=== PATIENT | female | born 1930 | race Caucasian/White ===

== ENCOUNTER 2018-12-03 07:28 | Inpatient (IN) | payer MEDICARE, OTHER ==
[2018-12-03] MEDS ORDERED: Sodium Chloride 0.9% 10 ML Syringe FLUSH PRN (08:02)
[2018-12-03] MEDS ORDERED: cefTRIAXone 2 GM in Sodium Chloride 0.9% 100 ML IV ONE (08:04)
[2018-12-03] MEDS ORDERED: Sodium Chloride 0.9% 1,000 ML IV SCH (08:15)
--- NOTE | 2018-12-03 08:23 | EDM.PDOC ---
ED HPI GENERAL MEDICAL PROBLEM - General Chief Complaint: Possible Sepsis Stated Complaint: [facility] Time Seen by Provider: 12/03/18 07:46 Source of Information: Reports: Patient, EMS, Half-Way Records History Limitations: Reports: No Limitations - History of Present Illness INITIAL COMMENTS - FREE TEXT/NARRATIVE: The patient presents from [facility] for a fever of 102. She also has been needed oxygen to keep oxygen saturations about 90%. She denies having a cough. She has just been weak lately. She has no chest pain, shortness of breath, abdominal pain, nausea or vomiting. She has no dysuria. She has no skin sores. She has not been around anyone who is sick. Onset: Gradual Duration: Day(s): Severity: Moderate Improves with: Reports: None Worsens with: Reports: None Associated Symptoms: Reports: Fever/Chills. Denies: Chest Pain, Cough, Headaches, Nausea/Vomiting, Shortness of Breath - Related Data Allergies Allergy/AdvReac Type Severity Reaction Status Date / Time levofloxacin [From Levaquin] Allergy Itching Verified 10/05/18 16:04 Home Meds: Home Meds Aspirin [Halfprin] 81 mg PO DAILY 10/20/15 [History] Clopidogrel [Plavix] 75 mg PO DAILY 10/20/15 [History] Cyanocobalamin (Vitamin B12) [Vitamin B12] 1,000 mcg PO DAILY 10/20/15 [History] Gabapentin [Neurontin] 300 mg PO TID 10/20/15 [History] Insulin Aspart [Novolog Flexpen] 9 unit SQ QPM 10/20/15 [History] Insulin Aspart [Novolog Flexpen] 11 unit SQ DAILY 10/20/15 [History] Insulin Detemir [Levemir Flextouch] 30 unit SQ DAILY 10/20/15 [History] Furosemide [Lasix] 40 mg PO DAILY 03/05/16 [History] Sennosides/Docusate Sodium [Senna-Docusate Sodium] 1 tab PO DAILY PRN 03/05/16 [ History] Acetaminophen 500 mg PO BEDTIME 07/12/16 [History] Acetaminophen [Tylenol Extra Strength] 1,000 mg PO Q6HR PRN 07/12/16 [History] Calcium Carbonate [Tums] 400 mg PO Q4H PRN 07/12/16 [History] Vitamin E 400 unit PO DAILY 07/12/16 [History] Loratadine [Claritin] 10 mg PO DAILY PRN 10/05/18 [History] Saccharomyces Boulardii [Florastor] 250 mg PO BID #9 cap 10/09/18 [Rx] Past Medical History HEENT History: Reports: Impaired Vision Cardiovascular History: Reports: Arrhythmia, Heart Failure, Hypertension Respiratory History: Reports: Other (See Below) Other Respiratory History: hypoxemia Gastrointestinal History: Reports: Chronic Constipation Other Gastrointestinal History: dysphagia Genitourinary History: Reports: Chronic Renal Insuffiency, Retention, Urinary 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[employer] SPECIALIST History: Reports: Musculoskeletal History: Reports: Back Pain, Chronic Other Musculoskeletal History: muscle weakness Neurological History: Reports: TIA, Other (See Below) Other Neuro History: cerebral infarct; neuralgia Psychiatric History: Reports: Depression Endocrine/Metabolic History: Reports: Diabetes, Type II Hematologic History: Reports: Anemia Oncologic (Cancer) History: Reports: Other (See Below) Other Oncologic History: unknown skin cancer Dermatologic History: Reports: Other (See Below) Other Dermatologic History: previous supspected skin cancer - Past Surgical History GI Surgical History: Reports: Cholecystectomy Social & Family History - Family History Family Medical History: Noncontributory - Tobacco Use Smoking Status *Q: Never Smoker - Caffeine Use Caffeine Use: Reports: None - Recreational Drug Use Recreational Drug Use: No ED ROS GENERAL - Review of Systems Review Of Systems: See Below Constitutional: Reports: Fever, Chills, Malaise, Weakness, Fatigue HEENT: Reports: No Symptoms Respiratory: Reports: No Symptoms Cardiovascular: Reports: No Symptoms Endocrine: Reports: No Symptoms GI/Abdominal: Reports: No Symptoms : Reports: No Symptoms Musculoskeletal: Reports: No Symptoms ED EXAM, SEPSIS - Physical Exam Exam: See Below Exam Limited By: No Limitations General Appearance: Alert, No Apparent Distress Ears: Normal External Exam Nose: Normal Inspection Head: Atraumatic, Normocephalic Neck: Normal Inspection Respiratory/Chest: No Respiratory Distress, Decreased Breath Sounds Cardiovascular: Regular Rate, Rhythm, No Edema, No Murmur GI/Abdominal Exam: Soft, Non-Tender, No Organomegaly, No Mass Back: Normal Inspection Extremities: Normal Inspection Neurological: Alert, Oriented, No Motor/Sensory Deficits Course - Vital Signs Last Recorded V/S: Last Vital Signs Temp 98.2 F 12/03/18 07:36 Pulse 105 H 12/03/18 07:36 Resp 22 H 12/03/18 07:36 BP 108/47 L 12/03/18 07:36 Pulse Ox 92 L 12/03/18 08:02 - Orders/Labs/Meds Orders: Active Orders 24 hr Category Date Time Status Cardiac Monitoring [RC] . DIRECTED Care 12/03/18 08:02 Active Oxygen Therapy [RC] PRN Care 12/03/18 08:02 Active Peripheral IV Care [RC] . DIRECTED Care 12/03/18 08:03 Active CRP [C-REACTIVE PROTEIN] [CHEM] Stat Lab 12/03/18 07:52 Received CULTURE BLOOD [BC] Stat Lab 12/03/18 07:52 Received CULTURE BLOOD [BC] Stat Lab 12/03/18 08:00 Received CULTURE STREP A CONFIRMATION [] Stat Lab 12/03/18 09:30 Results MYCOPLASMA PNEUMONIAE IGM AB [CHEM] Stat Lab 12/03/18 07:52 Received STREP SCRN A RAPID W CULT CONF [RM] Stat Lab 12/03/18 09:30 Results Sodium Chloride 0.9% [Normal Saline] 1,000 ml Med 12/03/18 08:15 Active IV .BOLUS Sodium Chloride 0.9% [Saline Flush] Med 12/03/18 08:02 Active 10 ml FLUSH ASDIRECTED PRN Blood Culture x2 Reflex Set [OM.PC] Stat Oth 12/03/18 08:04 Ordered Peripheral IV Insertion Adult [OM.PC] Stat Oth 12/03/18 08:02 Ordered Medication Orders Sodium Chloride (Normal Saline) 1,000 mls @ 1,000 mls/hr IV .BOLUS KANNAN Last Admin: 12/03/18 08:15 Dose: 1,000 mls/hr Sodium Chloride (Saline Flush) 10 ml FLUSH ASDIRECTED PRN PRN Reason: Keep Vein Open Last Admin: 12/03/18 08:15 Dose: 10 ml Labs: Laboratory Tests 12/03/18 12/03/18 12/03/18 Range/Units 07:52 07:52 07:52 WBC 17.99 H (3.98-10.04) K/mm3 RBC 4.33 (3.98-5.22) M/mm3 Hgb 12.6 (11.2-15.7) gm/L Hct 37.9 (34.1-44.9) % MCV 87.5 (79.4-94.8) fl MCH 29.1 (25.6-32.2) pg MCHC 33.2 (32.2-35.5) g/dl RDW Std Deviation 46.2 (36.4-46.3) fL Plt Count 241 (182-369) K/mm3 MPV 10.0 (9.4-12.3) fl Neut % (Auto) 89.4 H (34.0-71.1) % Lymph % (Auto) 5.8 L (19.3-51.7) % Day % (Auto) 4.3 L (4.7-12.5) % Eos % (Auto) 0 L (0.7-5.8) Baso % (Auto) 0.2 (0.1-1.2) % Neut # (Auto) 16.09 H (1.56-6.13) K/mm3 Lymph # (Auto) 1.04 L (1.18-3.74) K/mm3 Day # (Auto) 0.78 H (0.24-0.36) K/mm3 Eos # (Auto) 0.00 L (0.04-0.36) K/mm3 Baso # (Auto) 0.03 (0.01-0.08) K/mm3 Manual Slide Review Abnormal smear Sodium 139 (136-145) mEq/L Potassium 2.7 L (3.5-5.1) mEq/L Chloride 101 (98-107) mEq/L Carbon Dioxide 26 (21-32) mEq/L Anion Gap 14.7 (5-15) BUN 11 (7-18) mg/dL Creatinine 1.2 H (0.55-1.02) mg/dL Est Cr Clr Drug Dosing 23.72 mL/min Estimated GFR (MDRD) 42 (>60) mL/min BUN/Creatinine Ratio 9.2 L (14-18) Glucose 181 H (83-115) mg/dL Lactic Acid 0.9 (0.4-2.0) mmol/L Calcium 8.9 (8.5-10.1) mg/dL Total Bilirubin 0.9 (0.2-1.0) mg/dL AST 13 L (15-37) U/L ALT 15 (14-59) U/L Alkaline Phosphatase 66 (46-116) U/L Total Protein 6.8 (6.4-8.2) g/dl Albumin 2.9 L (3.4-5.0) g/dl Globulin 3.9 gm/dL Albumin/Globulin Ratio 0.7 L (1-2) Urine Color (Yellow) Urine Appearance (Clear) Urine pH (5.0-8.0) Ur Specific [place] (1.005-1.030) Urine Protein (Negative) Urine Glucose (UA) (Negative) Urine Ketones (Negative) Urine Occult Blood (Negative) Urine Nitrite (Negative) Urine Bilirubin (Negative) Urine Urobilinogen (0.2-1.0) Ur Leukocyte Esterase (Negative) Urine RBC (0-5) /hpf Urine WBC (0-5) /hpf Ur Epithelial Cells (0-5) /hpf Urine Bacteria (FEW) /hpf Urine Mucus (FEW) /hpf 12/03/18 Range/Units 08:24 WBC (3.98-10.04) K/mm3 RBC (3.98-5.22) M/mm3 Hgb (11.2-15.7) gm/L Hct (34.1-44.9) % MCV (79.4-94.8) fl MCH (25.6-32.2) pg MCHC (32.2-35.5) g/dl RDW Std Deviation (36.4-46.3) fL Plt Count (182-369) K/mm3 MPV (9.4-12.3) fl Neut % (Auto) (34.0-71.1) % Lymph % (Auto) (19.3-51.7) % Day % (Auto) (4.7-12.5) % Eos % (Auto) (0.7-5.8) Baso % (Auto) (0.1-1.2) % Neut # (Auto) (1.56-6.13) K/mm3 Lymph # (Auto) (1.18-3.74) K/mm3 Day # (Auto) (0.24-0.36) K/mm3 Eos # (Auto) (0.04-0.36) K/mm3 Baso # (Auto) (0.01-0.08) K/mm3 Manual Slide Review Sodium (136-145) mEq/L Potassium (3.5-5.1) mEq/L Chloride (98-107) mEq/L Carbon Dioxide (21-32) mEq/L Anion Gap (5-15) BUN (7-18) mg/dL Creatinine (0.55-1.02) mg/dL Est Cr Clr Drug Dosing mL/min Estimated GFR (MDRD) (>60) mL/min BUN/Creatinine Ratio (14-18) Glucose (83-115) mg/dL Lactic Acid (0.4-2.0) mmol/L Calcium (8.5-10.1) mg/dL Total Bilirubin (0.2-1.0) mg/dL AST (15-37) U/L ALT (14-59) U/L Alkaline Phosphatase (46-116) U/L Total Protein (6.4-8.2) g/dl Albumin (3.4-5.0) g/dl Globulin gm/dL Albumin/Globulin Ratio (1-2) Urine Color Dark yellow (Yellow) Urine Appearance Clear (Clear) Urine pH 6.5 (5.0-8.0) Ur Specific [place] 1.020 (1.005-1.030) Urine Protein 1+ H (Negative) Urine Glucose (UA) Negative (Negative) Urine Ketones 1+ H (Negative) Urine Occult Blood Negative (Negative) Urine Nitrite Negative (Negative) Urine Bilirubin Negative (Negative) Urine Urobilinogen 0.2 (0.2-1.0) Ur Leukocyte Esterase Negative (Negative) Urine RBC Not seen (0-5) /hpf Urine WBC 0-5 (0-5) /hpf Ur Epithelial Cells 0-5 (0-5) /hpf Urine Bacteria Not seen (FEW) /hpf Urine Mucus Not seen (FEW) /hpf Meds: Medications Generic Name Dose Route Start Last Admin Trade Name Freq PRN Reason Stop Dose Admin Sodium Chloride 1,000 mls @ 1,000 mls/hr 12/03/18 08:15 12/03/18 08:15 Normal Saline IV 1,000 mls/hr .BOLUS KANNAN Administration Sodium Chloride 10 ml 12/03/18 08:02 12/03/18 08:15 Saline Flush FLUSH 10 ml ASDIRECTED PRN Administration Keep Vein Open Discontinued Medications Generic Name Dose Route Start Last Admin Trade Name Freq PRN Reason Stop Dose Admin Ceftriaxone Sodium 2 gm/ 100 mls @ 200 mls/hr 12/03/18 08:04 12/03/18 08:37 Sodium Chloride IV 12/03/18 08:33 200 mls/hr ONETIME ONE Administration Oseltamivir Phosphate 75 mg 12/03/18 09:06 12/03/18 09:15 Tamiflu PO 12/03/18 09:07 75 mg ONETIME ONE Administration Potassium Chloride 40 meq 12/03/18 09:17 12/03/18 09:26 Klor-Con M20 PO 12/03/18 09:18 40 meq ONETIME ONE Administration - Re-Assessments/Exams Free Text/Narrative Re-Assessment/Exam: 12/03/18 08:32 I ordered oxygen, IV NS 1L bolus, labs, UA, blood cultures and rocephin 2 grams IV. 12/03/18 10:12 Her WBC was elevated at 17.99. Her K was low at 2.7. I gave her a dose of 40meq by mouth. Her creatinine was slightly elevated at 1.2. Her glucose was 181. Her lactic acid was normal at 0.9. Her UA shows no UTI. Her influenza B was positive. Her CXR shows patchy areas of increased density on both sides of the chest. The patient has bilateral pneumonia and influenza B. I ordered tamiflu 75mg PO. 12/03/18 10:[address] Gutierrez and she agreed to the admission. She wanted a mycoplasma and strep. The strep was negative. Departure - Departure Time of Disposition: 10:15 Disposition: Admitted As Inpatient 67 Condition: Poor Clinical Impression: Hypokalemia, Influenza B, Renal insufficiency Pneumonia Qualifiers: Pneumonia type: due to unspecified organism Laterality: left Lung location: unspecified part of lung Qualified Code(s): J18.9 - Pneumonia, unspecified organism - Discharge Information - My Orders Last 24 Hours: My Active Orders 12/03/18 07:52 CRP [C-REACTIVE PROTEIN] [CHEM] Stat CULTURE BLOOD [BC] Stat MYCOPLASMA PNEUMONIAE IGM AB [CHEM] Stat 12/03/18 08:00 CULTURE BLOOD [BC] Stat 12/03/18 08:02 Cardiac Monitoring [RC] . DIRECTED Oxygen Therapy [RC] PRN Sodium Chloride 0.9% [Saline Flush] 10 ml FLUSH ASDIRECTED PRN Peripheral IV Insertion Adult [OM.PC] Stat 12/03/18 08:03 Peripheral IV Care [RC] . DIRECTED 12/03/18 08:04 Blood Culture x2 Reflex Set [OM.PC] Stat 12/03/18 08:15 Sodium Chloride 0.9% [Normal Saline] 1,000 ml IV .BOLUS 12/03/18 09:30 CULTURE STREP A CONFIRMATION [RM] Stat STREP SCRN A RAPID W CULT CONF [RM] Stat - Assessment/Plan Last 24 Hours: My Active Orders 12/03/18 07:52 CRP [C-REACTIVE PROTEIN] [CHEM] Stat CULTURE BLOOD [BC] Stat MYCOPLASMA PNEUMONIAE IGM AB [CHEM] Stat 12/03/18 08:00 CULTURE BLOOD [BC] Stat 12/03/18 08:02 Cardiac Monitoring [RC] . DIRECTED Oxygen Therapy [RC] PRN Sodium Chloride 0.9% [Saline Flush] 10 ml FLUSH ASDIRECTED PRN Peripheral IV Insertion Adult [OM.PC] Stat 12/03/18 08:03 Peripheral IV Care [RC] . DIRECTED 12/03/18 08:04 Blood Culture x2 Reflex Set [OM.PC] Stat 12/03/18 08:15 Sodium Chloride 0.9% [Normal Saline] 1,000 ml IV .BOLUS 12/03/18 09:30 CULTURE STREP A CONFIRMATION [RM] Stat STREP SCRN A RAPID W CULT CONF [RM] Stat
--- NOTE | 2018-12-03 08:47 | CR ---
Chest: Frontal view of the chest was obtained. Comparison: Prior chest x-ray of 10/09/18. Patchy areas of increased density are identified within both sides of the chest. Heart size is slightly enlarged. Mild tortuosity of the thoracic aorta is seen. Scoliosis noted within the spine with scattered degenerative change. Surgical clips are seen from prior cholecystectomy. Bony structures are osteopenic. Impression: 1. Patchy areas of increased density on both sides of the chest. Please correlate if patient has infectious symptoms for findings to represent multifocal pneumonia. Continued follow-up is recommended to evaluate for improvement. 2. Other incidental findings as noted above. Diagnostic code #3
[2018-12-03] MEDS ORDERED: Oseltamivir 75 MG Cap PO ONE (09:06)
[2018-12-03] MEDS ORDERED: Potassium Chloride 20 MEQ Tab.ER PO ONE (09:17)
[2018-12-03] MEDS ORDERED: Loratadine 10 MG Tab PO PRN (11:44)
[2018-12-03] MEDS ORDERED: Calcium Carbonate 500 MG Tab.Chew PO PRN (11:44)
--- NOTE | 2018-12-03 11:44 | PCM.HP ---
H&P History of Present Illness - General Date of Service: 12/03/18 Admit Problem/Dx: Admission Diagnosis/Problem Admission Diagnosis/Problem Pneumonia Source of Information: Family, Provider History Limitations: Reports: No Limitations - History of Present Illness Initial Comments - Free Text/Narative: 88 year old diabetic resident of [facility] presented febrile with flu like symptoms. She has had the Flu vaccine but unfortunately has tested positive for Influenza B. The patient also has bilateral infiltrates; Documented elevated temperature was 102.0F taken in the ambulance. She will be admitted to [facility] with telemetry. Code status is DNR. Onset of Symptoms: Reports: Unknown/Unsure Symptom Onset Date: 12/03/18 Duration of Symptoms: Reports: Hour(s):, Getting Worse Location: Reports: Chest, Generalized Severity: Moderate Improves with: Reports: Medication Worsens with: Reports: None Associated Symptoms: Reports: Cough, Loss of Appetite, Malaise, Nausea/Vomiting , Shortness of Breath, Weakness - Related Data Allergies/Adverse Reactions: Allergies Allergy/AdvReac Type Severity Reaction Status Date / Time levofloxacin [From Levaquin] Allergy Itching Verified 10/05/18 16:04 Home Medications: Home Meds Aspirin [Halfprin] 81 mg PO DAILY 10/20/15 [History] Clopidogrel [Plavix] 75 mg PO DAILY 10/20/15 [History] Cyanocobalamin (Vitamin B12) [Vitamin B12] 1,000 mcg PO DAILY 10/20/15 [History] Gabapentin [Neurontin] 300 mg PO TID 10/20/15 [History] Insulin Aspart [Novolog Flexpen] 9 unit SQ QPM 10/20/15 [History] Insulin Aspart [Novolog Flexpen] 11 unit SQ QAM 10/20/15 [History] Insulin Detemir [Levemir Flextouch] 30 unit SQ DAILY 10/20/15 [History] Furosemide [Lasix] 40 mg PO DAILY 03/05/16 [History] Sennosides/Docusate Sodium [Senna-Docusate Sodium] 1 tab PO DAILY PRN 03/05/16 [ History] Acetaminophen 500 mg PO BEDTIME 07/12/16 [History] Acetaminophen [Tylenol Extra Strength] 1,000 mg PO Q6HR PRN 07/12/16 [History] Calcium Carbonate [Tums] 400 mg PO Q4H PRN 07/12/16 [History] Vitamin E 400 unit PO DAILY 07/12/16 [History] Loratadine [Claritin] 10 mg PO DAILY PRN 10/05/18 [History] Past Medical History HEENT History: Reports: Impaired Vision Cardiovascular History: Reports: Arrhythmia, Heart Failure, Hypertension Respiratory History: Reports: Other (See Below) Other Respiratory History: hypoxemia Gastrointestinal History: Reports: Chronic Constipation Other Gastrointestinal History: dysphagia Genitourinary History: Reports: Chronic Renal Insuffiency, Retention, Urinary [employer] History: Reports: Musculoskeletal History: Reports: Back Pain, Chronic Other Musculoskeletal History: muscle weakness Neurological History: Reports: TIA, Other (See Below) Other Neuro History: cerebral infarct; neuralgia Psychiatric History: Reports: Depression Endocrine/Metabolic History: Reports: Diabetes, Type II Hematologic History: Reports: Anemia Oncologic (Cancer) History: Reports: Other (See Below) Other Oncologic History: unknown skin cancer Dermatologic History: Reports: Other (See Below) Other Dermatologic History: previous supspected skin cancer - Past Surgical History GI Surgical History: Reports: Cholecystectomy Social & Family History - Family History Family Medical History: Noncontributory - Tobacco Use Smoking Status *Q: Never Smoker - Caffeine Use Caffeine Use: Reports: None - Recreational Drug Use Recreational Drug Use: No H&P Review of Systems - Review of Systems: Review Of Systems: See Below General: Reports: Fever, Chills, Malaise, Weakness, Fatigue, Decreased Appetite HEENT: Reports: No Symptoms Pulmonary: Reports: Shortness of Breath, Cough Gastrointestinal: Reports: Decreased Appetite, Nausea Genitourinary: Reports: No Symptoms Musculoskeletal: Reports: No Symptoms Skin: Reports: No Symptoms Psychiatric: Reports: No Symptoms Neurological: Reports: No Symptoms Hematologic/Lymphatic: Reports: No Symptoms Immunologic: Reports: No Symptoms Exam - Exam Exam: See Below - Vital Signs Vital Signs: Last Vital Signs Temp 36.8 C 12/03/18 07:36 Pulse 105 H 12/03/18 07:36 Resp 22 H 12/03/18 07:36 BP 108/47 L 12/03/18 07:36 Pulse Ox 92 L 12/03/18 08:02 Weight: 65.771 kg - Exam Quality Assessment: Supplemental Oxygen, DVT Prophylaxis General: Alert, Oriented, Cooperative HEENT: Conjunctiva Clear, EOMI, Nares Patent, Normal Nasal Septum, Pupils Equal , Pupils Reactive, PERRLA Neck: Trachea Midline Lungs: Normal Respiratory Effort, Decreased Breath Sounds, Rhonchi Cardiovascular: Regular Rate GI/Abdominal Exam: Normal Bowel Sounds, Soft, Non-Tender, No Organomegaly, No Distention (Female) Exam: Deferred Rectal (Female) Exam: Deferred Back Exam: Normal Inspection Extremities: Normal Inspection, Non-Tender, Slow Capillary Refill Skin: Warm Neurological: Cranial Nerves Intact Neuro Extensive - Mental Status: Alert, Normal Mood/Affect, Normal Cognition, Memory Intact Neuro Extensive - Motor, Sensory, Reflexes: CN II-XII Intact Psychiatric: Alert - Patient Data Lab Results Last 24 hrs: Laboratory Results - last 24 hr 12/03/18 12/03/18 12/03/18 Range/Units 07:52 07:52 07:52 WBC 17.99 H (3.98-10.04) K/mm3 RBC 4.33 (3.98-5.22) M/mm3 Hgb 12.6 (11.2-15.7) gm/L Hct 37.9 (34.1-44.9) % MCV 87.5 (79.4-94.8) fl MCH 29.1 (25.6-32.2) pg MCHC 33.2 (32.2-35.5) g/dl RDW Std Deviation 46.2 (36.4-46.3) fL Plt Count 241 (182-369) K/mm3 MPV 10.0 (9.4-12.3) fl Neut % (Auto) 89.4 H (34.0-71.1) % Lymph % (Auto) 5.8 L (19.3-51.7) % [place] % (Auto) 4.3 L (4.7-12.5) % Eos % (Auto) 0 L (0.7-5.8) Baso % (Auto) 0.2 (0.1-1.2) % Neut # (Auto) 16.09 H (1.56-6.13) K/mm3 Lymph # (Auto) 1.04 L (1.18-3.74) K/mm3 [place] # (Auto) 0.78 H (0.24-0.36) K/mm3 Eos # (Auto) 0.00 L (0.04-0.36) K/mm3 Baso # (Auto) 0.03 (0.01-0.08) K/mm3 Manual Slide Review Abnormal smear Sodium 139 (136-145) mEq/L Potassium 2.7 L (3.5-5.1) mEq/L Chloride 101 (98-107) mEq/L Carbon Dioxide 26 (21-32) mEq/L Anion Gap 14.7 (5-15) BUN 11 (7-18) mg/dL Creatinine 1.2 H (0.55-1.02) mg/dL Est Cr Clr Drug Dosing 23.72 mL/min Estimated GFR (MDRD) 42 (>60) mL/min BUN/Creatinine Ratio 9.2 L (14-18) Glucose 181 H (83-115) mg/dL Lactic Acid 0.9 (0.4-2.0) mmol/L Calcium 8.9 (8.5-10.1) mg/dL Total Bilirubin 0.9 (0.2-1.0) mg/dL AST 13 L (15-37) U/L ALT 15 (14-59) U/L Alkaline Phosphatase 66 (46-116) U/L C-Reactive Protein (<1.0) mg/dL Total Protein 6.8 (6.4-8.2) g/dl Albumin 2.9 L (3.4-5.0) g/dl Globulin 3.9 gm/dL Albumin/Globulin Ratio 0.7 L (1-2) Urine Color (Yellow) Urine Appearance (Clear) Urine pH (5.0-8.0) Ur Specific [place] (1.005-1.030) Urine Protein (Negative) Urine Glucose (UA) (Negative) Urine Ketones (Negative) Urine Occult Blood (Negative) Urine Nitrite (Negative) Urine Bilirubin (Negative) Urine Urobilinogen (0.2-1.0) Ur Leukocyte Esterase (Negative) Urine RBC (0-5) /hpf Urine WBC (0-5) /hpf Ur Epithelial Cells (0-5) /hpf Urine Bacteria (FEW) /hpf Urine Mucus (FEW) /hpf Mycoplasma pneumon IgM (NEGATIVE) 12/03/18 12/03/18 Range/Units 07:52 08:24 WBC (3.98-10.04) K/mm3 RBC (3.98-5.22) M/mm3 Hgb (11.2-15.7) gm/L Hct (34.1-44.9) % MCV (79.4-94.8) fl MCH (25.6-32.2) pg MCHC (32.2-35.5) g/dl RDW Std Deviation (36.4-46.3) fL Plt Count (182-369) K/mm3 MPV (9.4-12.3) fl Neut % (Auto) (34.0-71.1) % Lymph % (Auto) (19.3-51.7) % [place] % (Auto) (4.7-12.5) % Eos % (Auto) (0.7-5.8) Baso % (Auto) (0.1-1.2) % Neut # (Auto) (1.56-6.13) K/mm3 Lymph # (Auto) (1.18-3.74) K/mm3 [place] # (Auto) (0.24-0.36) K/mm3 Eos # (Auto) (0.04-0.36) K/mm3 Baso # (Auto) (0.01-0.08) K/mm3 Manual Slide Review Sodium (136-145) mEq/L Potassium (3.5-5.1) mEq/L Chloride (98-107) mEq/L Carbon Dioxide (21-32) mEq/L Anion Gap (5-15) BUN (7-18) mg/dL Creatinine (0.55-1.02) mg/dL Est Cr Clr Drug Dosing mL/min Estimated GFR (MDRD) (>60) mL/min BUN/Creatinine Ratio (14-18) Glucose (83-115) mg/dL Lactic Acid (0.4-2.0) mmol/L Calcium (8.5-10.1) mg/dL Total Bilirubin (0.2-1.0) mg/dL AST (15-37) U/L ALT (14-59) U/L Alkaline Phosphatase (46-116) U/L C-Reactive Protein 24.8 H* (<1.0) mg/dL Total Protein (6.4-8.2) g/dl Albumin (3.4-5.0) g/dl Globulin gm/dL Albumin/Globulin Ratio (1-2) Urine Color Dark yellow (Yellow) Urine Appearance Clear (Clear) Urine pH 6.5 (5.0-8.0) Ur Specific [place] 1.020 (1.005-1.030) Urine Protein 1+ H (Negative) Urine Glucose (UA) Negative (Negative) Urine Ketones 1+ H (Negative) Urine Occult Blood Negative (Negative) Urine Nitrite Negative (Negative) Urine Bilirubin Negative (Negative) Urine Urobilinogen 0.2 (0.2-1.0) Ur Leukocyte Esterase Negative (Negative) Urine RBC Not seen (0-5) /hpf Urine WBC 0-5 (0-5) /hpf Ur Epithelial Cells 0-5 (0-5) /hpf Urine Bacteria Not seen (FEW) /hpf Urine Mucus Not seen (FEW) /hpf Mycoplasma pneumon IgM Negative (NEGATIVE) Result Diagrams: 12/03/18 07:52 12/03/18 07:52 Octavio Results Last 24 hrs: Microbiology 12/03/18 09:30 Group A Streptococcus Rapid Screen - Final Throat NEGATIVE STREP A SCREEN 12/03/18 08:36 Influenza Type A Antigen Screen - Final Nasopharyngeal Swab NEGATIVE INFLUENZA A VIRUS AG Influenza Type B Antigen Screen - Final Positive Influenza B Ag - Problem List (1) Hypokalemia SNOMED Code(s): 83952429 ICD Code: E87.6 - HYPOKALEMIA Status: Acute Current Visit: Yes (2) Influenza B SNOMED Code(s): 62216140 ICD Code: J10.1 - FLU DUE TO OTH IDENT INFLUENZA VIRUS W OTH RESP MANIFEST Status: Acute Current Visit: Yes (3) Pneumonia SNOMED Code(s): 413491300 ICD Code: J18.9 - PNEUMONIA, UNSPECIFIED ORGANISM Status: Acute Current Visit: Yes Qualifiers: Pneumonia type: due to unspecified organism Laterality: left Lung location: unspecified part of lung Qualified Code(s): J18.9 - Pneumonia, unspecified organism (4) Renal insufficiency SNOMED Code(s): 914325175, 619616283 ICD Code: N28.9 - DISORDER OF KIDNEY AND URETER, UNSPECIFIED Status: Acute Current Visit: Yes Problem List Initiated/Reviewed/Updated: Yes Orders Last 24hrs: Active Orders 24 hr Category Date Time Status Admission Status [Patient Status] [ADT] Routine ADT 12/03/18 09:59 Active Cardiac Monitoring [RC] . DIRECTED Care 12/03/18 08:02 Active Oxygen Therapy [RC] PRN Care 12/03/18 08:02 Active Peripheral IV Care [RC] . DIRECTED Care 12/03/18 08:03 Active CULTURE BLOOD [] Stat Lab 12/03/18 07:52 Received CULTURE BLOOD [] Stat Lab 12/03/18 08:00 Received CULTURE STREP A CONFIRMATION [] Stat Lab 12/03/18 09:30 Results STREP SCRN A RAPID W CULT CONF [] Stat Lab 12/03/18 09:30 Results Sodium Chloride 0.9% [Normal Saline] 1,000 ml Med 12/03/18 08:15 Active IV .BOLUS Sodium Chloride 0.9% [Saline Flush] Med 12/03/18 08:02 Active 10 ml FLUSH ASDIRECTED PRN Blood Culture x2 Reflex Set [OM.PC] Stat Oth 12/03/18 08:04 Ordered Peripheral IV Insertion Adult [OM.PC] Stat Oth 12/03/18 08:02 Ordered Medication Orders Sodium Chloride (Normal Saline) 1,000 mls @ 1,000 mls/hr IV .BOLUS KANNAN Last Admin: 12/03/18 08:15 Dose: 1,000 mls/hr Sodium Chloride (Saline Flush) 10 ml FLUSH ASDIRECTED PRN PRN Reason: Keep Vein Open Last Admin: 12/03/18 08:15 Dose: 10 ml Assessment/Plan Comment:: Impression: Bilateral PNA with hypoxia Influenza B positive, Hx of vaccine Dehydration ARF Hypokalemia Chronic DM type 2 TIA/CVA CKD HF HTN HLD Depression Plan: IVF Replace electrolytes; refusing oral KCl Sepsis protocol Droplet precautions Complete resp screen; check PCR Home meds Daily labs
[2018-12-03] MEDS ORDERED: 50% Dextrose in Water 50 ML Syringe IVPUSH PRN (11:56)
[2018-12-03] MEDS ORDERED: Ondansetron 4 MG/2 ML SDV IVPUSH PRN (11:58)
[2018-12-03] MEDS ORDERED: Albuterol 0.083% 2.5 MG/3 ML Neb Soln NEB PRN (12:01)
[2018-12-03] MEDS ORDERED: Potassium Chloride 20 MEQ Tab.ER PO SCH (12:30)
[2018-12-03] MEDS: Clopidogrel 75 MG Tab PO SCH (13:27)
[2018-12-03] MEDS: Azithromycin 500 MG in Sodium Chloride 0.9% 250 ML IV SCH (13:27)
[2018-12-03] MEDS: Albuterol/Ipratropium 3.0-0.5 MG/3 ML Neb Soln NEB SCH ×4 (14:05→21:30)
[2018-12-03] MEDS: Insulin Lispro 100 Unit/ML 3 ML KwikPen SUBCUT SCH ×3 (14:34→21:58)
[2018-12-03] MEDS: Gabapentin 300 MG Cap PO SCH ×2 (14:37→21:52)
[2018-12-03] MEDS: Potassium Chloride 10% 20 MEQ/15 ML Soln 15 ML UD Cup PO SCH ×2 (14:39→14:41)
[2018-12-03] MEDS: NS + KCl 20mEq/L 1,000 ML IV SCH (15:16)
[2018-12-03] MEDS: Potassium Chloride 10 MEQ in Premix Bag 1 BAG IV SCH ×4 (15:17→21:50)
[2018-12-03] MEDS: Saccharomyces Boulardii (Probiotic) 250 MG Cap PO SCH (21:52)
[2018-12-03] MEDS: Heparin Sodium 5,000 Units/ML Vial SUBCUT SCH (21:58)
[2018-12-03] MEDS ORDERED: Potassium Chloride 10 MEQ in Premix Bag 1 BAG IV SCH (22:00)
[2018-12-04] MEDS: NS + KCl 20mEq/L 1,000 ML IV SCH ×2 (02:26→12:59)
[2018-12-04] MEDS: Albuterol/Ipratropium 3.0-0.5 MG/3 ML Neb Soln NEB SCH ×4 (06:14→21:10)
[2018-12-04] MEDS: Heparin Sodium 5,000 Units/ML Vial SUBCUT SCH ×3 (08:05→21:08)
[2018-12-04] MEDS: cefTRIAXone 2 GM in Sodium Chloride 0.9% 100 ML IV SCH (08:36)
[2018-12-04] MEDS: Saccharomyces Boulardii (Probiotic) 250 MG Cap PO SCH ×2 (08:39→21:09)
[2018-12-04] MEDS: Aspirin 81 MG Tab.EC PO SCH (08:40)
[2018-12-04] MEDS: Oseltamivir 30 MG Cap PO SCH (08:40)
[2018-12-04] MEDS: Clopidogrel 75 MG Tab PO SCH (08:40)
[2018-12-04] MEDS: Gabapentin 300 MG Cap PO SCH ×3 (08:40→21:09)
[2018-12-04] MEDS: Insulin Lispro 100 Unit/ML 3 ML KwikPen SUBCUT SCH ×4 (08:41→21:02)
--- NOTE | 2018-12-04 12:24 | PCM.PN ---
- General Info Date of Service: 12/04/18 Admission Dx/Problem (Free Text): Admission Diagnosis/Problem Admission Diagnosis/Problem Pneumonia Subjective Update: Follow up Functional Status: Reports: Pain Controlled, Tolerating Diet, Urinating. Denies : New Symptoms - Review of Systems General: Reports: Fatigue, Malaise. Denies: Fever, Chills HEENT: Reports: No Symptoms Pulmonary: Reports: Shortness of Breath, Cough Cardiovascular: Denies: Chest Pain Gastrointestinal: Denies: Abdominal Pain, Decreased Appetite, Nausea, Vomiting Genitourinary: Reports: No Symptoms Musculoskeletal: Reports: No Symptoms Skin: Denies: Cyanosis, Pallor, Diaphoresis, Bruising, Pruritis Neurological: Reports: Weakness, Gait Disturbance. Denies: Confusion, Difficulty Walking Psychiatric: Denies: Depression, Anxiety, Agitation, Hallucinations Systems Review Comment:: No significant overnight or acute issues. She feels crappy but slept good last night. She is afebrile with WBC down to 12.40. her CRP is 32 w/ a Mg level of 1.7. Her BS are not well controlled. - Patient Data Vitals - Most Recent: Last Vital Signs Temp 37.0 C 12/04/18 08:33 Pulse 95 12/04/18 08:33 Resp 16 12/04/18 08:33 BP 139/47 L 12/04/18 08:33 Pulse Ox 90 L 12/04/18 09:53 Weight - Most Recent: 67.857 kg I&O - Last 24 Hours: Intake & Output 12/03/18 12/04/18 12/04/18 22:59 06:59 14:59 Intake Total 621 2185 200 Output Total 2 Balance 619 2185 200 Lab Results Last 24 Hours: Laboratory Results - last 24 hr 12/03/18 12/03/18 12/03/18 Range/Units 12:41 12:47 17:21 WBC (3.98-10.04) K/mm3 RBC (3.98-5.22) M/mm3 Hgb (11.2-15.7) gm/L Hct (34.1-44.9) % MCV (79.4-94.8) fl MCH (25.6-32.2) pg MCHC (32.2-35.5) g/dl RDW Std Deviation (36.4-46.3) fL Plt Count (182-369) K/mm3 MPV (9.4-12.3) fl Neut % (Auto) (34.0-71.1) % Lymph % (Auto) (19.3-51.7) % [place] % (Auto) (4.7-12.5) % Eos % (Auto) (0.7-5.8) Baso % (Auto) (0.1-1.2) % Neut # (Auto) (1.56-6.13) K/mm3 Lymph # (Auto) (1.18-3.74) K/mm3 [place] # (Auto) (0.24-0.36) K/mm3 Eos # (Auto) (0.04-0.36) K/mm3 Baso # (Auto) (0.01-0.08) K/mm3 Sodium (136-145) mEq/L Potassium (3.5-5.1) mEq/L Chloride (98-107) mEq/L Carbon Dioxide (21-32) mEq/L Anion Gap (5-15) BUN (7-18) mg/dL Creatinine (0.55-1.02) mg/dL Est Cr Clr Drug Dosing mL/min Estimated GFR (MDRD) (>60) mL/min BUN/Creatinine Ratio (14-18) Glucose (83-115) mg/dL POC Glucose 248 H 265 H (83-110) mg/dL Lactic Acid (0.4-2.0) mmol/L Calcium (8.5-10.1) mg/dL Magnesium (1.8-2.4) mg/dl C-Reactive Protein (<1.0) mg/dL C.difficile 027-NAP1-B1 C. difficile Tox (PCR) MRSA (PCR) Negative 12/03/18 12/04/18 12/04/18 Range/Units 21:41 05:23 05:23 WBC 12.40 H (3.98-10.04) K/mm3 RBC 3.48 L (3.98-5.22) M/mm3 Hgb 10.1 L (11.2-15.7) gm/L Hct 31.4 L (34.1-44.9) % MCV 90.2 (79.4-94.8) fl MCH 29.0 (25.6-32.2) pg MCHC 32.2 (32.2-35.5) g/dl RDW Std Deviation 47.6 H (36.4-46.3) fL Plt Count 209 (182-369) K/mm3 MPV 10.3 (9.4-12.3) fl Neut % (Auto) 76.8 H (34.0-71.1) % Lymph % (Auto) 16.3 L (19.3-51.7) % [place] % (Auto) 5.9 (4.7-12.5) % Eos % (Auto) 0.5 L (0.7-5.8) Baso % (Auto) 0.2 (0.1-1.2) % Neut # (Auto) 9.53 H (1.56-6.13) K/mm3 Lymph # (Auto) 2.02 (1.18-3.74) K/mm3 [place] # (Auto) 0.73 H (0.24-0.36) K/mm3 Eos # (Auto) 0.06 (0.04-0.36) K/mm3 Baso # (Auto) 0.02 (0.01-0.08) K/mm3 Sodium 140 (136-145) mEq/L Potassium 3.8 (3.5-5.1) mEq/L Chloride 108 H (98-107) mEq/L Carbon Dioxide 22 (21-32) mEq/L Anion Gap 13.8 (5-15) BUN 10 (7-18) mg/dL Creatinine 1.0 (0.55-1.02) mg/dL Est Cr Clr Drug Dosing 28.47 mL/min Estimated GFR (MDRD) 52 (>60) mL/min BUN/Creatinine Ratio 10.0 L (14-18) Glucose 183 H (83-115) mg/dL POC Glucose 287 H (83-110) mg/dL Lactic Acid (0.4-2.0) mmol/L Calcium 8.0 L (8.5-10.1) mg/dL Magnesium 1.7 L (1.8-2.4) mg/dl C-Reactive Protein 32.6 H* (<1.0) mg/dL C.difficile 027-NAP1-B1 C. difficile Tox (PCR) MRSA (PCR) 0112/04/18 12/04/18 Range/Units 05:23 07:30 09:25 WBC (3.98-10.04) K/mm3 RBC (3.98-5.22) M/mm3 Hgb (11.2-15.7) gm/L Hct (34.1-44.9) % MCV (79.4-94.8) fl MCH (25.6-32.2) pg MCHC (32.2-35.5) g/dl RDW Std Deviation (36.4-46.3) fL Plt Count (182-369) K/mm3 MPV (9.4-12.3) fl Neut % (Auto) (34.0-71.1) % Lymph % (Auto) (19.3-51.7) % [place] % (Auto) (4.7-12.5) % Eos % (Auto) (0.7-5.8) Baso % (Auto) (0.1-1.2) % Neut # (Auto) (1.56-6.13) K/mm3 Lymph # (Auto) (1.18-3.74) K/mm3 [place] # (Auto) (0.24-0.36) K/mm3 Eos # (Auto) (0.04-0.36) K/mm3 Baso # (Auto) (0.01-0.08) K/mm3 Sodium (136-145) mEq/L Potassium (3.5-5.1) mEq/L Chloride (98-107) mEq/L Carbon Dioxide (21-32) mEq/L Anion Gap (5-15) BUN (7-18) mg/dL Creatinine (0.55-1.02) mg/dL Est Cr Clr Drug Dosing mL/min Estimated GFR (MDRD) (>60) mL/min BUN/Creatinine Ratio (14-18) Glucose (83-115) mg/dL POC Glucose 235 H (83-110) mg/dL Lactic Acid 0.8 (0.4-2.0) mmol/L Calcium (8.5-10.1) mg/dL Magnesium (1.8-2.4) mg/dl C-Reactive Protein (<1.0) mg/dL C.difficile 027-NAP1-B1 Presumptive negative C. difficile Tox (PCR) Negative MRSA (PCR) 12/04/18 Range/Units 11:30 WBC (3.98-10.04) K/mm3 RBC (3.98-5.22) M/mm3 Hgb (11.2-15.7) gm/L Hct (34.1-44.9) % MCV (79.4-94.8) fl MCH (25.6-32.2) pg MCHC (32.2-35.5) g/dl RDW Std Deviation (36.4-46.3) fL Plt Count (182-369) K/mm3 MPV (9.4-12.3) fl Neut % (Auto) (34.0-71.1) % Lymph % (Auto) (19.3-51.7) % [place] % (Auto) (4.7-12.5) % Eos % (Auto) (0.7-5.8) Baso % (Auto) (0.1-1.2) % Neut # (Auto) (1.56-6.13) K/mm3 Lymph # (Auto) (1.18-3.74) K/mm3 [place] # (Auto) (0.24-0.36) K/mm3 Eos # (Auto) (0.04-0.36) K/mm3 Baso # (Auto) (0.01-0.08) K/mm3 Sodium (136-145) mEq/L Potassium (3.5-5.1) mEq/L Chloride (98-107) mEq/L Carbon Dioxide (21-32) mEq/L Anion Gap (5-15) BUN (7-18) mg/dL Creatinine (0.55-1.02) mg/dL Est Cr Clr Drug Dosing mL/min Estimated GFR (MDRD) (>60) mL/min BUN/Creatinine Ratio (14-18) Glucose (83-115) mg/dL POC Glucose 301 H (83-110) mg/dL Lactic Acid (0.4-2.0) mmol/L Calcium (8.5-10.1) mg/dL Magnesium (1.8-2.4) mg/dl C-Reactive Protein (<1.0) mg/dL C.difficile 027-NAP1-B1 C. difficile Tox (PCR) MRSA (PCR) Octavio Results Last 24 Hours: Microbiology 12/03/18 09:30 Quick Strep Confirmation Culture - Preliminary Throat Group A Streptococcus Rapid Screen - Final NEGATIVE STREP A SCREEN 12/03/18 08:00 Aerobic Blood Culture - Preliminary Blood - Venous - Lab Draw NO GROWTH AFTER 1 DAY Anaerobic Blood Culture - Preliminary NO GROWTH AFTER 1 DAY 12/03/18 07:52 Aerobic Blood Culture - Preliminary Blood - Venous NO GROWTH AFTER 1 DAY Anaerobic Blood Culture - Preliminary NO GROWTH AFTER 1 DAY 12/03/18 08:36 Influenza Type A Antigen Screen - Final Nasopharyngeal Swab NEGATIVE INFLUENZA A VIRUS AG Influenza Type B Antigen Screen - Final Positive Influenza B Ag Med Orders - Current: Current Medications Acetaminophen (Tylenol) 650 mg PO Q6H PRN PRN Reason: Pain/Fever Albuterol (Proventil Neb Soln) 2.5 mg NEB Q4H PRN PRN Reason: Shortness of Breath Albuterol/Ipratropium (Duoneb 3.0-0.5 Mg/3 Ml) 3 ml NEB QIDRT [facility] Last Admin: 12/04/18 09:52 Dose: 3 ml Aspirin (Halfprin) 81 mg PO DAILY [facility] Last Admin: 12/04/18 08:40 Dose: 81 mg Calcium Carbonate/Glycine (Tums) 500 mg PO Q4H PRN PRN Reason: Heartburn Clopidogrel Bisulfate (Plavix) 75 mg PO DAILY [facility] Last Admin: 12/04/18 08:40 Dose: 75 mg Dextrose/Water (Dextrose 50% In Water) 50 ml IVPUSH ASDIRECTED PRN PRN Reason: Hypoglycemia Gabapentin (Neurontin) 300 mg PO TID [facility] Last Admin: 12/04/18 08:40 Dose: 300 mg Heparin Sodium (Porcine) (Heparin Sodium) 5,000 units SUBCUT Q8H [facility] Last Admin: 12/04/18 08:05 Dose: Not Given Azithromycin 500 mg/ Sodium (Chloride) 250 mls @ 250 mls/hr IV Q24H [facility] Last Admin: 12/03/18 13:27 Dose: 250 mls/hr Ceftriaxone Sodium 2 gm/ (Sodium Chloride) 100 mls @ 200 mls/hr IV Q24H [facility] Last Admin: 12/04/18 08:36 Dose: 200 mls/hr Potassium Chloride/Sodium Chloride (Normal Saline With 20 Meq Kcl) 1,000 mls @ 100 mls/hr IV ASDIRECTED [facility] Last Admin: 12/04/18 02:26 Dose: 100 mls/hr Insulin Glargine (Lantus) 30 unit SUBCUT DAILY [facility] Insulin Human Lispro (Humalog) 0 unit SUBCUT QIDACANDBED [facility]; Protocol Last Admin: 12/04/18 08:41 Dose: 2 units Loratadine (Claritin) 10 mg PO DAILY PRN PRN Reason: Allergies Ondansetron HCl (Zofran) 4 mg IVPUSH Q8H PRN PRN Reason: Nausea/Vomiting Oseltamivir Phosphate (Tamiflu) 30 mg PO DAILY [facility] Last Admin: 12/04/18 08:40 Dose: 30 mg Saccharomyces Boulardii (Florastor) 250 mg PO BID [facility] Last Admin: 12/04/18 08:39 Dose: 250 mg Senna/Docusate Sodium (Senna Plus) 1 tab PO DAILY PRN PRN Reason: Constipation Sodium Chloride (Saline Flush) 10 ml FLUSH ASDIRECTED PRN PRN Reason: Keep Vein Open Last Admin: 12/03/18 08:15 Dose: 10 ml Discontinued Medications Albuterol/Ipratropium (Duoneb 3.0-0.5 Mg/3 Ml) 3 ml NEB QID [facility] Last Admin: 12/03/18 21:30 Dose: 3 ml Ceftriaxone Sodium 2 gm/ (Sodium Chloride) 100 mls @ 200 mls/hr IV ONETIME ONE Stop: 12/03/18 08:33 Last Admin: 12/03/18 08:37 Dose: 200 mls/hr Sodium Chloride (Normal Saline) 1,000 mls @ 1,000 mls/hr IV .BOLUS [facility] Last Admin: 12/03/18 08:15 Dose: 1,000 mls/hr Potassium Chloride 10 meq/ (Premix) 100 mls @ 100 mls/hr IV Q1H [facility] Stop: 12/03/18 19:29 Last Admin: 12/03/18 21:50 Dose: 100 mls/hr Potassium Chloride 10 meq/ (Premix) 100 mls @ 100 mls/hr IV Q1H [facility] Stop: 12/03/18 22:59 Last Admin: 12/03/18 22:02 Dose: Not Given Oseltamivir Phosphate (Tamiflu) 75 mg PO ONETIME ONE Stop: 12/03/18 09:07 Last Admin: 12/03/18 09:15 Dose: 75 mg Potassium Chloride (Klor-Con M20) 40 meq PO ONETIME ONE Stop: 12/03/18 09:18 Last Admin: 12/03/18 09:26 Dose: 40 meq Potassium Chloride (Klor-Con M20) 40 meq PO TID [facility] Stop: 12/03/18 21:01 Last Admin: 12/03/18 13:26 Dose: 40 meq Potassium Chloride (Potassium Chloride Solution) 40 meq PO TID [facility] Stop: 12/04/18 09:01 Last Admin: 12/03/18 14:41 Dose: Not Given - Exam Quality Assessment: Supplemental Oxygen General: Alert, Oriented, Cooperative, No Acute Distress HEENT: Pupils Equal, Pupils Reactive, Mucous Membr. Moist/[place] Neck: Supple Lungs: Normal Respiratory Effort, Decreased Breath Sounds, Rhonchi Cardiovascular: Regular Rate, Regular Rhythm GI/Abdominal Exam: Normal Bowel Sounds, Soft, Non-Tender, No Organomegaly, No Distention, No Abnormal Bruit (Female) Exam: Deferred Back Exam: Normal Inspection, Decreased Range of Motion Extremities: Normal Inspection, Normal Range of Motion, Non-Tender, No Pedal Edema, Normal Capillary Refill Peripheral Pulses: 2+: Dorsalis Pedis (L), Dorsalis Pedis (R) Skin: Warm, Dry, Intact Neurological: No New Focal Deficit Psy/Mental Status: Alert, Normal Affect, Normal Mood - Problem List Review Problem List Initiated/Reviewed/Updated: Yes - My Orders Last 24 Hours: My Active Orders 12/04/18 09:54 Incentive Spirometry [RT Incentive Spirometry] [RC] ASDIRECTED RT Chest Physiotherapy [RC] ASDIRECTED 12/04/18 10:23 OT Evaluation and Treatment [CONS] Routine PT Evaluation and Treatment [CONS] Routine 12/05/18 09:00 Insulin Glarg,Human.Rec.Analog [LantUS] 30 unit SUBCUT DAILY - Plan Plan:: Impression/Plan: Acute: Bilateral PNA w/ Improved Hypoxia - CXR report reads patchy areas of increased density within both sides of the chest - Ordered Sputum Cx, RVP, and Strep pneumonia Ag all pending - Scheduled Decongestant and Expectorant - Continue IV Azithromycin and Rocephin - Encouraged to use IS/FV as directed - CXR repeat in AM Influenza B positive, Hx of vaccine - Continue Tamiflu Hypomagnesemia - 2/2 inadequate intake - Replete and monitor Hyperglycemia with DM2 - BS in the 200-300s - Continue home dose insulin - Accu-check AC/HS and Medium dose ISS Resolved: S/p Dehydration - No ARF; she was at baseline S/p Hypokalemia - 2.7 now 3.8 Chronic: TIA/CVA CKD HF HTN HLD Depression Plan: She looks fairly stable Sepsis protocol Routine AM Labs Droplet precautions RT consult for pulmonary toilet Advance diet as tolerated PT/OT consult for deconditioning SW/CM for d/c planning Code status: DNR
[2018-12-04] MEDS: Azithromycin 500 MG in Sodium Chloride 0.9% 250 ML IV SCH (12:55)
[2018-12-04] MEDS ORDERED: hydrALAZINE 20 MG/ML SDV IVPUSH PRN (20:15)
[2018-12-04] MEDS ORDERED: Metoprolol Tartrate 5 MG/5 ML SDV IVPUSH PRN (20:15)
[2018-12-04] MEDS ORDERED: Magnesium Oxide 400 MG Tab PO ONE (20:30)
[2018-12-04] MEDS: guaiFENesin/Dextromethorphan 100-10 MG/5 ML Soln 5 ML Cup PO SCH ×2 (21:04→21:13)
[2018-12-04] MEDS: Potassium Chloride 20 MEQ Tab.ER PO SCH (21:09)
[2018-12-04] MEDS: Acetaminophen 325 MG Tab PO PRN (21:27)
[2018-12-05] MEDS: Potassium Chloride 20 MEQ Tab.ER PO SCH (00:26)
[2018-12-05] MEDS: Albuterol/Ipratropium 3.0-0.5 MG/3 ML Neb Soln NEB SCH ×2 (05:13→09:14)
[2018-12-05] MEDS: Heparin Sodium 5,000 Units/ML Vial SUBCUT SCH (05:57)
[2018-12-05] MEDS: Insulin Lispro 100 Unit/ML 3 ML KwikPen SUBCUT SCH ×5 (06:00→21:06)
[2018-12-05] MEDS: guaiFENesin/Dextromethorphan 100-10 MG/5 ML Soln 5 ML Cup PO SCH ×3 (06:07→21:09)
[2018-12-05] MEDS: cefTRIAXone 2 GM in Sodium Chloride 0.9% 100 ML IV SCH (08:46)
[2018-12-05] MEDS: Saccharomyces Boulardii (Probiotic) 250 MG Cap PO SCH ×2 (08:48→21:08)
[2018-12-05] MEDS: Gabapentin 300 MG Cap PO SCH ×3 (08:48→21:08)
[2018-12-05] MEDS: Oseltamivir 30 MG Cap PO SCH (08:49)
[2018-12-05] MEDS: Aspirin 81 MG Tab.EC PO SCH (08:49)
[2018-12-05] MEDS: Clopidogrel 75 MG Tab PO SCH (08:49)
[2018-12-05] MEDS: Insulin Glarg,Human.Rec.Analog 100 UNIT/ML ML SUBCUT SCH (08:53)
--- NOTE | 2018-12-05 10:20 | PCM.PN ---
- General Info Date of Service: 12/05/18 Admission Dx/Problem (Free Text): Admission Diagnosis/Problem Admission Diagnosis/Problem Pneumonia Subjective Update: In to see Suma. We had a very flores discussion on her progress and refusing of multiple therapies. Nursing reports she has been refusing insulin, has been refusing IS/Acapella, has been refusing multiple medications, and has been refusing to work with therapies. Suma states she would like to get better but when attempt is made to explain why we are doing/prescribing various interventions she states she is just too weak and cannot do anything. Patients daughter called and talked with nursing. She was advised of the situation and reports this is not uncommon with her mother and will try to have a family member contact her. The daughter is reportedly sick and will avoid coming up here. Repeat CXR is worse today and this was communicated to the patient with no change in behavior. Viral panel returns negative for everything, including infuenza. Discussion was had about this as her influenza screening was positive for B. Our bindery chief is looking into this. Her HR and BP have been elevated. Will switch for albuterol to xopenex and give x1 dose of hydralizine now. Suma reports she feels worse today and nursing reports she has been requiring more assistance. Discussed findings thus far with pharmacy and recommendation was to keep current treatment plan pending results tomorrow. Lactic acids have been WNL. Functional Status: Reports: Pain Controlled, Tolerating Diet, Ambulating, Urinating, Incentive Spirometry, Other (acapella ). Denies: New Symptoms - Review of Systems General: Reports: Fever (overnight ), Weakness, Fatigue, Malaise. Denies: Chills HEENT: Reports: No Symptoms. Denies: Headaches, Sore Throat, Rhinitis Pulmonary: Reports: Shortness of Breath, Cough, Sputum. Denies: Pleuritic Chest Pain, Wheezing Cardiovascular: Reports: Dyspnea on Exertion. Denies: Chest Pain, Palpitations , Edema, Lightheadedness Gastrointestinal: Reports: No Symptoms. Denies: Abdominal Pain, Constipation, Diarrhea, Nausea, Vomiting Genitourinary: Reports: No Symptoms Musculoskeletal: Reports: No Symptoms Skin: Reports: No Symptoms Neurological: Reports: No Symptoms, Difficulty Walking, Weakness, Gait Disturbance. Denies: Confusion, Headache, Numbness, Seizure, Tingling, Trouble Speaking Psychiatric: Reports: No Symptoms - Patient Data Vitals - Most Recent: Last Vital Signs Temp 98.7 F 12/05/18 10:10 Pulse 104 H 12/05/18 07:39 Resp 16 12/05/18 07:39 BP 141/57 H 12/05/18 07:39 Pulse Ox 91 L 12/05/18 09:15 Weight - Most Recent: 149 lb 9.6 oz I&O - Last 24 Hours: Intake & Output 12/04/18 12/05/18 12/05/18 22:59 06:59 14:59 Intake Total 2190 600 Output Total 300 Balance 1890 600 Lab Results Last 24 Hours: Laboratory Results - last 24 hr 12/03/18 12/04/18 12/04/18 Range/Units 13:41 09:25 11:30 WBC (3.98-10.04) K/mm3 RBC (3.98-5.22) M/mm3 Hgb (11.2-15.7) gm/L Hct (34.1-44.9) % MCV (79.4-94.8) fl MCH (25.6-32.2) pg MCHC (32.2-35.5) g/dl RDW Std Deviation (36.4-46.3) fL Plt Count (182-369) K/mm3 MPV (9.4-12.3) fl Neut % (Auto) (34.0-71.1) % Lymph % (Auto) (19.3-51.7) % [place] % (Auto) (4.7-12.5) % Eos % (Auto) (0.7-5.8) Baso % (Auto) (0.1-1.2) % Neut # (Auto) (1.56-6.13) K/mm3 Lymph # (Auto) (1.18-3.74) K/mm3 [place] # (Auto) (0.24-0.36) K/mm3 Eos # (Auto) (0.04-0.36) K/mm3 Baso # (Auto) (0.01-0.08) K/mm3 Sodium (136-145) mEq/L Potassium (3.5-5.1) mEq/L Chloride (98-107) mEq/L Carbon Dioxide (21-32) mEq/L Anion Gap (5-15) BUN (7-18) mg/dL Creatinine (0.55-1.02) mg/dL Est Cr Clr Drug Dosing mL/min Estimated GFR (MDRD) (>60) mL/min BUN/Creatinine Ratio (14-18) Glucose (83-115) mg/dL POC Glucose 301 H (83-110) mg/dL Lactic Acid (0.4-2.0) mmol/L Calcium (8.5-10.1) mg/dL Magnesium (1.8-2.4) mg/dl C-Reactive Protein (<1.0) mg/dL Adenovirus (PCR) Not detected (Not Detected) B. pertussis DNA (PCR) Not detected (Not Detected) B.parapertussis DNA PCR Not detected (Not Detected) C. pneumoniae DNA (PCR) Not detected (Not Detected) C.difficile 027-[id number] Presumptive negative C. difficile Tox (PCR) Negative Coronavirus (PCR) Not detected (Not Detected) Human Metapneumovir PCR Not detected (Not Detected) Influenza A (RT-PCR) Not detected (Not Detected) Influenza B (RT-PCR) Not detected (Not Detected) M. pneumoniae (PCR) Not detected (Not Detected) Parainfluen 1,2,3,4 PCR Not detected (Not Detected) RSV (PCR) Not detected (Not Detected) Entero/Rhino (PCR) Not detected (Not Detected) 12/04/18 12/04/18 12/05/18 Range/Units 16:53 20:44 05:34 WBC (3.98-10.04) K/mm3 RBC (3.98-5.22) M/mm3 Hgb (11.2-15.7) gm/L Hct (34.1-44.9) % MCV (79.4-94.8) fl MCH (25.6-32.2) pg MCHC (32.2-35.5) g/dl RDW Std Deviation (36.4-46.3) fL Plt Count (182-369) K/mm3 MPV (9.4-12.3) fl Neut % (Auto) (34.0-71.1) % Lymph % (Auto) (19.3-51.7) % [place] % (Auto) (4.7-12.5) % Eos % (Auto) (0.7-5.8) Baso % (Auto) (0.1-1.2) % Neut # (Auto) (1.56-6.13) K/mm3 Lymph # (Auto) (1.18-3.74) K/mm3 [place] # (Auto) (0.24-0.36) K/mm3 Eos # (Auto) (0.04-0.36) K/mm3 Baso # (Auto) (0.01-0.08) K/mm3 Sodium (136-145) mEq/L Potassium (3.5-5.1) mEq/L Chloride (98-107) mEq/L Carbon Dioxide (21-32) mEq/L Anion Gap (5-15) BUN (7-18) mg/dL Creatinine (0.55-1.02) mg/dL Est Cr Clr Drug Dosing mL/min Estimated GFR (MDRD) (>60) mL/min BUN/Creatinine Ratio (14-18) Glucose (83-115) mg/dL POC Glucose 138 H 237 H 211 H (83-110) mg/dL Lactic Acid (0.4-2.0) mmol/L Calcium (8.5-10.1) mg/dL Magnesium (1.8-2.4) mg/dl C-Reactive Protein (<1.0) mg/dL Adenovirus (PCR) (Not Detected) B. pertussis DNA (PCR) (Not Detected) B.parapertussis DNA PCR (Not Detected) C. pneumoniae DNA (PCR) (Not Detected) C.difficile 027-NAP1-B1 C. difficile Tox (PCR) Coronavirus (PCR) (Not Detected) Human Metapneumovir PCR (Not Detected) Influenza A (RT-PCR) (Not Detected) Influenza B (RT-PCR) (Not Detected) M. pneumoniae (PCR) (Not Detected) Parainfluen 1,2,3,4 PCR (Not Detected) RSV (PCR) (Not Detected) Entero/Rhino (PCR) (Not Detected) 12/05/18 12/05/18 12/05/18 Range/Units 05:35 05:35 05:35 WBC 13.76 H (3.98-10.04) K/mm3 RBC 3.63 L (3.98-5.22) M/mm3 Hgb 10.7 L (11.2-15.7) gm/L Hct 33.0 L (34.1-44.9) % MCV 90.9 (79.4-94.8) fl MCH 29.5 (25.6-32.2) pg MCHC 32.4 (32.2-35.5) g/dl RDW Std Deviation 48.7 H (36.4-46.3) fL Plt Count 229 (182-369) K/mm3 MPV 10.3 (9.4-12.3) fl Neut % (Auto) 80.5 H (34.0-71.1) % Lymph % (Auto) 13.4 L (19.3-51.7) % [place] % (Auto) 5.1 (4.7-12.5) % Eos % (Auto) 0.4 L (0.7-5.8) Baso % (Auto) 0.2 (0.1-1.2) % Neut # (Auto) 11.08 H (1.56-6.13) K/mm3 Lymph # (Auto) 1.85 (1.18-3.74) K/mm3 [place] # (Auto) 0.70 H (0.24-0.36) K/mm3 Eos # (Auto) 0.05 (0.04-0.36) K/mm3 Baso # (Auto) 0.03 (0.01-0.08) K/mm3 Sodium 141 (136-145) mEq/L Potassium 3.7 (3.5-5.1) mEq/L Chloride 107 (98-107) mEq/L Carbon Dioxide 21 (21-32) mEq/L Anion Gap 16.7 H (5-15) BUN 10 (7-18) mg/dL Creatinine 1.0 (0.55-1.02) mg/dL Est Cr Clr Drug Dosing 28.47 mL/min Estimated GFR (MDRD) 52 (>60) mL/min BUN/Creatinine Ratio 10.0 L (14-18) Glucose 183 H (83-115) mg/dL POC Glucose (83-110) mg/dL Lactic Acid 1.0 (0.4-2.0) mmol/L Calcium 8.5 (8.5-10.1) mg/dL Magnesium 1.9 (1.8-2.4) mg/dl C-Reactive Protein 23.6 H* (<1.0) mg/dL Adenovirus (PCR) (Not Detected) B. pertussis DNA (PCR) (Not Detected) B.parapertussis DNA PCR (Not Detected) C. pneumoniae DNA (PCR) (Not Detected) C.difficile 027-NAP1-B1 C. difficile Tox (PCR) Coronavirus (PCR) (Not Detected) Human Metapneumovir PCR (Not Detected) Influenza A (RT-PCR) (Not Detected) Influenza B (RT-PCR) (Not Detected) M. pneumoniae (PCR) (Not Detected) Parainfluen 1,2,3,4 PCR (Not Detected) RSV (PCR) (Not Detected) Entero/Rhino (PCR) (Not Detected) Octavio Results Last 24 Hours: Microbiology 12/03/18 08:00 Aerobic Blood Culture - Preliminary Blood - Venous - Lab Draw NO GROWTH AFTER 2 DAYS Anaerobic Blood Culture - Preliminary NO GROWTH AFTER 2 DAYS 12/03/18 07:52 Aerobic Blood Culture - Preliminary Blood - Venous NO GROWTH AFTER 2 DAYS Anaerobic Blood Culture - Preliminary NO GROWTH AFTER 2 DAYS 12/03/18 08:50 Streptococcus pneumoniae Antigen (M - Final Urine 12/03/18 09:30 Quick Strep Confirmation Culture - Preliminary Throat Group A Streptococcus Rapid Screen - Final NEGATIVE STREP A SCREEN Med Orders - Current: Current Medications Acetaminophen (Tylenol) 650 mg PO Q6H PRN PRN Reason: Pain/Fever Last Admin: 12/04/18 21:27 Dose: 650 mg Albuterol (Proventil Neb Soln) 2.5 mg NEB Q4H PRN PRN Reason: Shortness of Breath Albuterol/Ipratropium (Duoneb 3.0-0.5 Mg/3 Ml) 3 ml NEB QIDRT [facility] Last Admin: 12/05/18 09:14 Dose: 3 ml Aspirin (Halfprin) 81 mg PO DAILY [facility] Last Admin: 12/05/18 08:49 Dose: 81 mg Calcium Carbonate/Glycine (Tums) 500 mg PO Q4H PRN PRN Reason: Heartburn Clopidogrel Bisulfate (Plavix) 75 mg PO DAILY [facility] Last Admin: 12/05/18 08:49 Dose: 75 mg Dextrose/Water (Dextrose 50% In Water) 50 ml IVPUSH ASDIRECTED PRN PRN Reason: Hypoglycemia Gabapentin (Neurontin) 300 mg PO TID [facility] Last Admin: 12/05/18 08:48 Dose: 300 mg Guaifenesin/Phenylephrine HCl (Robitussin Dm) 5 ml PO TID@0700,1400,2100 [facility] Last Admin: 12/05/18 06:07 Dose: Not Given Heparin Sodium (Porcine) (Heparin Sodium) 5,000 units SUBCUT Q8H [facility] Last Admin: 12/05/18 05:57 Dose: Not Given Hydralazine HCl (Apresoline) 10 mg IVPUSH Q4H PRN PRN Reason: Hypertension Azithromycin 500 mg/ Sodium (Chloride) 250 mls @ 250 mls/hr IV Q24H [facility] Last Admin: 12/04/18 12:55 Dose: 250 mls/hr Ceftriaxone Sodium 2 gm/ (Sodium Chloride) 100 mls @ 200 mls/hr IV Q24H [facility] Last Admin: 12/05/18 08:46 Dose: 200 mls/hr Insulin Glargine (Lantus) 30 unit SUBCUT DAILY [facility] Last Admin: 12/05/18 08:53 Dose: 30 unit Insulin Human Lispro (Humalog) 0 unit SUBCUT QIDACANDBED [facility]; Protocol Last Admin: 12/05/18 06:00 Dose: 4 units Loratadine (Claritin) 10 mg PO DAILY PRN PRN Reason: Allergies Magnesium Sulfate (Pharmacy To Dose - Magnesium Replacement) 0 dose .XX ASDIRECTED PRN PRN Reason: RX TO WATCH MAG Metoprolol Tartrate (Lopressor) 5 mg IVPUSH Q4H PRN PRN Reason: Tachycardia Ondansetron HCl (Zofran) 4 mg IVPUSH Q8H PRN PRN Reason: Nausea/Vomiting Oseltamivir Phosphate (Tamiflu) 30 mg PO DAILY [facility] Last Admin: 12/05/18 08:49 Dose: 30 mg Potassium Chloride (Pharmacy To Dose - Potassium Replacement) 0 dose .XX ASDIRECTED PRN PRN Reason: RX TO WATCH K Saccharomyces Boulardii (Florastor) 250 mg PO BID [facility] Last Admin: 12/05/18 08:48 Dose: 250 mg Senna/Docusate Sodium (Senna Plus) 1 tab PO DAILY PRN PRN Reason: Constipation Sodium Chloride (Saline Flush) 10 ml FLUSH ASDIRECTED PRN PRN Reason: Keep Vein Open Last Admin: 12/03/18 08:15 Dose: 10 ml Discontinued Medications Albuterol/Ipratropium (Duoneb 3.0-0.5 Mg/3 Ml) 3 ml NEB QID [facility] Last Admin: 12/03/18 21:30 Dose: 3 ml Ceftriaxone Sodium 2 gm/ (Sodium Chloride) 100 mls @ 200 mls/hr IV ONETIME ONE Stop: 12/03/18 08:33 Last Admin: 12/03/18 08:37 Dose: 200 mls/hr Sodium Chloride (Normal Saline) 1,000 mls @ 1,000 mls/hr IV .BOLUS [facility] Last Admin: 12/03/18 08:15 Dose: 1,000 mls/hr Potassium Chloride/Sodium Chloride (Normal Saline With 20 Meq Kcl) 1,000 mls @ 100 mls/hr IV ASDIRECTED [facility] Last Admin: 12/04/18 12:59 Dose: 100 mls/hr Potassium Chloride 10 meq/ (Premix) 100 mls @ 100 mls/hr IV Q1H [facility] Stop: 12/03/18 19:29 Last Admin: 12/03/18 21:50 Dose: 100 mls/hr Potassium Chloride 10 meq/ (Premix) 100 mls @ 100 mls/hr IV Q1H [facility] Stop: 12/03/18 22:59 Last Admin: 12/03/18 22:02 Dose: Not Given Magnesium Oxide (Magnesium Oxide) 400 mg PO ONETIME ONE Stop: 12/04/18 20:31 Last Admin: 12/04/18 21:09 Dose: Not Given Oseltamivir Phosphate (Tamiflu) 75 mg PO ONETIME ONE Stop: 12/03/18 09:07 Last Admin: 12/03/18 09:15 Dose: 75 mg Potassium Chloride (Klor-Con M20) 40 meq PO ONETIME ONE Stop: 12/03/18 09:18 Last Admin: 12/03/18 09:26 Dose: 40 meq Potassium Chloride (Klor-Con M20) 40 meq PO TID [facility] Stop: 12/03/18 21:01 Last Admin: 12/03/18 13:26 Dose: 40 meq Potassium Chloride (Potassium Chloride Solution) 40 meq PO TID [facility] Stop: 12/04/18 09:01 Last Admin: 12/03/18 14:41 Dose: Not Given Potassium Chloride (Klor-Con M20) 40 meq PO Q4H [facility] Stop: 12/05/18 00:31 Last Admin: 12/05/18 00:26 Dose: Not Given - Exam Quality Assessment: Supplemental Oxygen, DVT Prophylaxis General: Alert, Oriented, Cooperative, No Acute Distress HEENT: Pupils Equal, Pupils Reactive, EOMI, Mucous Membr. Moist/[place] Neck: Supple, Trachea Midline, No JVD Lungs: Normal Respiratory Effort, Decreased Breath Sounds, Rhonchi Cardiovascular: Regular Rate, Regular Rhythm GI/Abdominal Exam: Normal Bowel Sounds, Soft, Non-Tender, No Distention, No Abnormal Bruit (Female) Exam: Deferred Back Exam: Normal Inspection, Decreased Range of Motion Extremities: Normal Inspection, Normal Range of Motion, Non-Tender, No Pedal Edema, Normal Capillary Refill Peripheral Pulses: 2+: Radial (L), Radial (R), Dorsalis Pedis (L), Dorsalis Pedis (R) Skin: Warm, Dry, Intact Neurological: No New Focal Deficit Psy/Mental Status: Alert, Normal Affect, Normal Mood - Problem List & Annotations (1) Influenza B SNOMED Code(s): 67319652 Code(s): J10.1 - FLU DUE TO OTH IDENT INFLUENZA VIRUS W OTH RESP MANIFEST Status: Acute Priority: High Current Visit: Yes (2) Pneumonia SNOMED Code(s): 575328593 Code(s): J18.9 - PNEUMONIA, UNSPECIFIED ORGANISM Status: Acute Priority: High Current Visit: Yes Qualifiers: Pneumonia type: due to unspecified organism Laterality: left Lung location: unspecified part of lung Qualified Code(s): J18.9 - Pneumonia, unspecified organism (3) Generalized weakness SNOMED Code(s): 02486511 Code(s): R53.1 - WEAKNESS Status: Acute Priority: High Current Visit: Yes - Problem List Review Problem List Initiated/Reviewed/Updated: Yes - Plan Plan:: Impression/Plan: Acute: Bilateral PNA w/Hypoxia - CXR report reads patchy areas of increased density within both sides of the chest - Ordered Sputum Cx ordered - RVP and Strep pneumonia Ag - negative - Scheduled Decongestant and Expectorant - Continue IV Azithromycin and Rocephin - Encouraged to use IS/FV as directed - CXR repeat today: Worsening parenchymal change within both lungs - Has been non-compliant with our treatment plan - O2 as needed - RT consult - Scheduled xopenex and ipratropium - switched from albuterol to xopenex due to tachycardia Influenza B positive, Hx of vaccine - Continue Tamiflu - RVP negative for influenza but screening positive - bioinformatics 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 Hyperglycemia with DM2, improved - BS in the 200-300s; Today 180-200s - Continue home dose insulin - Accu-check AC/HS and Medium dose ISS - Has been refusing sliding scale insulin today Resolved: S/p Dehydration - No ARF; she was at baseline S/p Hypokalemia - 2.7 now 3.8 S/P Hypomagnesemia - 2/2 inadequate intake - Replete and monitor Chronic: TIA/CVA CKD HF HTN HLD Depression Plan: She looks somewhat worse today but has been refusing much of our treatment plan. Sepsis protocol - lactic acids have been WNL Routine AM Labs Droplet precautions RT consult for pulmonary toilet Advance diet as tolerated PT/OT consult for deconditioning DVT/PE prophylaxis: Refusing Heparin so will order SCDs SW/CM for d/c planning Code status: DNR; PCP: Dr. Winchester
--- NOTE | 2018-12-05 10:47 | CR ---
Chest: Frontal view of the chest was obtained utilizing portable technique. Comparison: Prior chest x-ray of 12/03/18. Worsening areas of parenchymal density are seen within both lungs as an interval change from previous study. Heart is mildly enlarged. Upper mediastinum is normal. Scoliosis and degenerative change is noted within the spine. Impression: 1. Worsening parenchymal change within both lungs. Please correlate if this represents worsening pneumonia. Diagnostic code #3
[2018-12-05] MEDS: Azithromycin 500 MG in Sodium Chloride 0.9% 250 ML IV SCH (12:06)
[2018-12-05] MEDS: Levalbuterol HCl 1.25 MG/0.5 ML Neb NEB SCH ×2 (15:06→20:22)
[2018-12-05] MEDS: Ipratropium 0.02% 0.5 MG/2.5 ML Neb Soln NEB SCH ×2 (15:06→20:22)
[2018-12-05] MEDS: Acetaminophen 325 MG Tab PO PRN (21:08)
[2018-12-06] MEDS: Ipratropium 0.02% 0.5 MG/2.5 ML Neb Soln NEB SCH ×4 (05:31→20:48)
[2018-12-06] MEDS: Levalbuterol HCl 1.25 MG/0.5 ML Neb NEB SCH ×4 (05:31→20:48)
[2018-12-06] MEDS: Insulin Lispro 100 Unit/ML 3 ML KwikPen SUBCUT SCH ×4 (06:22→21:25)
[2018-12-06] MEDS: guaiFENesin/Dextromethorphan 100-10 MG/5 ML Soln 5 ML Cup PO SCH ×3 (06:22→20:12)
[2018-12-06] MEDS ORDERED: Diltiazem 50 MG/10 ML SDV IVPUSH ONE ×2 (07:20→09:40)
[2018-12-06] MEDS ORDERED: Diltiazem 125 MG in Sodium Chloride 0.9% 100 ML IV SCH (07:30)
--- NOTE | 2018-12-06 07:37 | PCM.PN ---
- General Info Date of Service: 12/06/18 Admission Dx/Problem (Free Text): Admission Diagnosis/Problem Admission Diagnosis/Problem Pneumonia Subjective Update: In to see [place]. This AM she developed into A-fib with RVR and was moved to the ICU. She converted with cardizem and will be started on 25mg BID metoprolol. Her WBC remained virtually the same and CRP worsened. She is still requiring 4L O2. After discussion with Dr. Sanches and pharmacy antibiotics were switched. She is more agreeable to treatment today as her daughter and sister are in the room. Encouraged to use IS/Acapella more. D-dimer was noted to be elevated so will order CTA to r/o PE and further delineate PNA. Functional Status: Reports: Pain Controlled, Tolerating Diet, Ambulating, Urinating, New Symptoms (A-fib with RVR ), Incentive Spirometry, Other ( acapella ) - Review of Systems General: Reports: Weakness (improved ), Fatigue, Malaise. Denies: Fever, Chills HEENT: Reports: No Symptoms. Denies: Headaches, Post Nasal Drip, Sore Throat Pulmonary: Reports: Shortness of Breath, Cough (improved ). Denies: Pleuritic Chest Pain, Sputum Cardiovascular: Reports: Dyspnea on Exertion, Edema (R>L chronic ). Denies: Chest Pain, Palpitations, Lightheadedness Gastrointestinal: Reports: No Symptoms. Denies: Abdominal Pain, Constipation, Diarrhea, Nausea, Vomiting Genitourinary: Reports: No Symptoms. Denies: Pain Musculoskeletal: Reports: No Symptoms Skin: Reports: No Symptoms Neurological: Reports: Difficulty Walking, Weakness, Gait Disturbance. Denies: Confusion Psychiatric: Reports: No Symptoms - Patient Data Vitals - Most Recent: Last Vital Signs Temp 98.4 F 12/06/18 05:52 Pulse 93 12/06/18 05:52 Resp 20 12/06/18 05:52 BP 138/56 L 12/06/18 05:52 Pulse Ox 92 L 12/06/18 05:52 Weight - Most Recent: 148 lb 9 oz I&O - Last 24 Hours: Intake & Output 12/05/18 12/06/18 12/06/18 22:59 06:59 14:59 Intake Total 260 150 Balance 260 150 Lab Results Last 24 Hours: Laboratory Results - last 24 hr 0112/05/18 12/05/18 Range/Units 10:37 17:03 21:06 WBC (3.98-10.04) K/mm3 RBC (3.98-5.22) M/mm3 Hgb (11.2-15.7) gm/L Hct (34.1-44.9) % MCV (79.4-94.8) fl MCH (25.6-32.2) pg MCHC (32.2-35.5) g/dl RDW Std Deviation (36.4-46.3) fL Plt Count (182-369) K/mm3 MPV (9.4-12.3) fl Neut % (Auto) (34.0-71.1) % Lymph % (Auto) (19.3-51.7) % Clark % (Auto) (4.7-12.5) % Eos % (Auto) (0.7-5.8) Baso % (Auto) (0.1-1.2) % Neut # (Auto) (1.56-6.13) K/mm3 Lymph # (Auto) (1.18-3.74) K/mm3 Clark # (Auto) (0.24-0.36) K/mm3 Eos # (Auto) (0.04-0.36) K/mm3 Baso # (Auto) (0.01-0.08) K/mm3 Sodium (136-145) mEq/L Potassium (3.5-5.1) mEq/L Chloride (98-107) mEq/L Carbon Dioxide (21-32) mEq/L Anion Gap (5-15) BUN (7-18) mg/dL Creatinine (0.55-1.02) mg/dL Est Cr Clr Drug Dosing mL/min Estimated GFR (MDRD) (>60) mL/min BUN/Creatinine Ratio (14-18) Glucose (83-115) mg/dL POC Glucose 212 H 228 H 257 H (83-110) mg/dL Lactic Acid (0.4-2.0) mmol/L Calcium (8.5-10.1) mg/dL Magnesium (1.8-2.4) mg/dl C-Reactive Protein (<1.0) mg/dL 12/06/18 12/06/18 12/06/18 Range/Units 05:45 05:45 05:45 WBC 13.71 H (3.98-10.04) K/mm3 RBC 3.48 L (3.98-5.22) M/mm3 Hgb 10.1 L (11.2-15.7) gm/L Hct 31.4 L (34.1-44.9) % MCV 90.2 (79.4-94.8) fl MCH 29.0 (25.6-32.2) pg MCHC 32.2 (32.2-35.5) g/dl RDW Std Deviation 48.3 H (36.4-46.3) fL Plt Count 258 (182-369) K/mm3 MPV 10.2 (9.4-12.3) fl Neut % (Auto) 79.7 H (34.0-71.1) % Lymph % (Auto) 12.2 L (19.3-51.7) % Clark % (Auto) 6.6 (4.7-12.5) % Eos % (Auto) 0.8 (0.7-5.8) Baso % (Auto) 0.1 (0.1-1.2) % Neut # (Auto) 10.93 H (1.56-6.13) K/mm3 Lymph # (Auto) 1.67 (1.18-3.74) K/mm3 Clark # (Auto) 0.90 H (0.24-0.36) K/mm3 Eos # (Auto) 0.11 (0.04-0.36) K/mm3 Baso # (Auto) 0.02 (0.01-0.08) K/mm3 Sodium 141 (136-145) mEq/L Potassium 3.2 L (3.5-5.1) mEq/L Chloride 108 H (98-107) mEq/L Carbon Dioxide 22 (21-32) mEq/L Anion Gap 14.2 (5-15) BUN 9 (7-18) mg/dL Creatinine 1.0 (0.55-1.02) mg/dL Est Cr Clr Drug Dosing 28.47 mL/min Estimated GFR (MDRD) 52 (>60) mL/min BUN/Creatinine Ratio 9.0 L (14-18) Glucose 124 H (83-115) mg/dL POC Glucose (83-110) mg/dL Lactic Acid 0.8 (0.4-2.0) mmol/L Calcium 9.0 (8.5-10.1) mg/dL Magnesium 2.0 (1.8-2.4) mg/dl C-Reactive Protein 28.5 H* (<1.0) mg/dL 12/06/18 Range/Units 05:48 WBC (3.98-10.04) K/mm3 RBC (3.98-5.22) M/mm3 Hgb (11.2-15.7) gm/L Hct (34.1-44.9) % MCV (79.4-94.8) fl MCH (25.6-32.2) pg MCHC (32.2-35.5) g/dl RDW Std Deviation (36.4-46.3) fL Plt Count (182-369) K/mm3 MPV (9.4-12.3) fl Neut % (Auto) (34.0-71.1) % Lymph % (Auto) (19.3-51.7) % Clark % (Auto) (4.7-12.5) % Eos % (Auto) (0.7-5.8) Baso % (Auto) (0.1-1.2) % Neut # (Auto) (1.56-6.13) K/mm3 Lymph # (Auto) (1.18-3.74) K/mm3 Clark # (Auto) (0.24-0.36) K/mm3 Eos # (Auto) (0.04-0.36) K/mm3 Baso # (Auto) (0.01-0.08) K/mm3 Sodium (136-145) mEq/L Potassium (3.5-5.1) mEq/L Chloride (98-107) mEq/L Carbon Dioxide (21-32) mEq/L Anion Gap (5-15) BUN (7-18) mg/dL Creatinine (0.55-1.02) mg/dL Est Cr Clr Drug Dosing mL/min Estimated GFR (MDRD) (>60) mL/min BUN/Creatinine Ratio (14-18) Glucose (83-115) mg/dL POC Glucose 141 H (83-110) mg/dL Lactic Acid (0.4-2.0) mmol/L Calcium (8.5-10.1) mg/dL Magnesium (1.8-2.4) mg/dl C-Reactive Protein (<1.0) mg/dL [facility]io Results Last 24 Hours: Microbiology 12/03/18 09:30 Quick Strep Confirmation Culture - Final Throat NEGATIVE FOR BETA STREP Group A Streptococcus Rapid Screen - Final NEGATIVE STREP A SCREEN 12/03/18 08:00 Aerobic Blood Culture - Preliminary Blood - Venous - Lab Draw NO GROWTH AFTER 2 DAYS Anaerobic Blood Culture - Preliminary NO GROWTH AFTER 2 DAYS 12/03/18 07:52 Aerobic Blood Culture - Preliminary Blood - Venous NO GROWTH AFTER 2 DAYS Anaerobic Blood Culture - Preliminary NO GROWTH AFTER 2 DAYS Med Orders - Current: Current Medications Acetaminophen (Tylenol) 650 mg PO Q6H PRN PRN Reason: Pain/Fever Last Admin: 12/05/18 21:08 Dose: 650 mg Albuterol (Proventil Neb Soln) 2.5 mg NEB Q4H PRN PRN Reason: Shortness of Breath Aspirin (Halfprin) 81 mg PO DAILY [facility] Last Admin: 12/05/18 08:49 Dose: 81 mg Calcium Carbonate/Glycine (Tums) 500 mg PO Q4H PRN PRN Reason: Heartburn Clopidogrel Bisulfate (Plavix) 75 mg PO DAILY [facility] Last Admin: 12/05/18 08:49 Dose: 75 mg Dextrose/Water (Dextrose 50% In Water) 50 ml IVPUSH ASDIRECTED PRN PRN Reason: Hypoglycemia Diltiazem HCl (Cardizem) 10 mg IVPUSH ONETIME ONE Stop: 12/06/18 07:21 Furosemide (Lasix) 40 mg PO DAILY [facility] Gabapentin (Neurontin) 300 mg PO TID [facility] Last Admin: 12/05/18 21:08 Dose: 300 mg Guaifenesin/Phenylephrine HCl (Robitussin Dm) 5 ml PO TID@0700,1400,2100 [facility] Last Admin: 12/06/18 06:22 Dose: Not Given Hydralazine HCl (Apresoline) 10 mg IVPUSH Q4H PRN PRN Reason: Hypertension Last Admin: 12/05/18 10:58 Dose: 10 mg Azithromycin 500 mg/ Sodium (Chloride) 250 mls @ 250 mls/hr IV Q24H [facility] Last Admin: 12/05/18 12:06 Dose: 250 mls/hr Ceftriaxone Sodium 2 gm/ (Sodium Chloride) 100 mls @ 200 mls/hr IV Q24H [facility] Last Admin: 12/05/18 08:46 Dose: 200 mls/hr Diltiazem HCl 125 mg/ Sodium (Chloride) 125 mls @ 5 mls/hr IV TITRATE [facility]; Protocol Insulin Glargine (Lantus) 30 unit SUBCUT DAILY [facility] Last Admin: 12/05/18 08:53 Dose: 30 unit Insulin Human Lispro (Humalog) 0 unit SUBCUT QIDACANDBED [facility]; Protocol Last Admin: 12/06/18 06:22 Dose: Not Given Ipratropium [place] (Atrovent) 0.5 mg NEB QIDRT [facility] Last Admin: 12/06/18 05:31 Dose: 0.5 mg Levalbuterol HCl (Xopenex) 1.25 mg NEB QIDRT [facility] Last Admin: 12/06/18 05:31 Dose: 1.25 mg Loratadine (Claritin) 10 mg PO DAILY PRN PRN Reason: Allergies Magnesium Sulfate (Pharmacy To Dose - Magnesium Replacement) 0 dose .XX ASDIRECTED PRN PRN Reason: RX TO WATCH MAG Metoprolol Tartrate (Lopressor) 5 mg IVPUSH Q4H PRN PRN Reason: Tachycardia Ondansetron HCl (Zofran) 4 mg IVPUSH Q8H PRN PRN Reason: Nausea/Vomiting Oseltamivir Phosphate (Tamiflu) 30 mg PO DAILY [facility] Last Admin: 12/05/18 08:49 Dose: 30 mg Potassium Chloride (Pharmacy To Dose - Potassium Replacement) 0 dose .XX ASDIRECTED PRN PRN Reason: RX TO WATCH K Saccharomyces Boulardii (Florastor) 250 mg PO BID [facility] Last Admin: 12/05/18 21:08 Dose: 250 mg Senna/Docusate Sodium (Senna Plus) 1 tab PO DAILY PRN PRN Reason: Constipation Sodium Chloride (Saline Flush) 10 ml FLUSH ASDIRECTED PRN PRN Reason: Keep Vein Open Last Admin: 12/03/18 08:15 Dose: 10 ml Discontinued Medications Albuterol/Ipratropium (Duoneb 3.0-0.5 Mg/3 Ml) 3 ml NEB QID [facility] Last Admin: 12/03/18 21:30 Dose: 3 ml Albuterol/Ipratropium (Duoneb 3.0-0.5 Mg/3 Ml) 3 ml NEB QIDRT [facility] Last Admin: 12/05/18 09:14 Dose: 3 ml Heparin Sodium (Porcine) (Heparin Sodium) 5,000 units SUBCUT Q8H [facility] Last Admin: 12/05/18 05:57 Dose: Not Given Ceftriaxone Sodium 2 gm/ (Sodium Chloride) 100 mls @ 200 mls/hr IV ONETIME ONE Stop: 12/03/18 08:33 Last Admin: 12/03/18 08:37 Dose: 200 mls/hr Sodium Chloride (Normal Saline) 1,000 mls @ 1,000 mls/hr IV .BOLUS [facility] Last Admin: 12/03/18 08:15 Dose: 1,000 mls/hr Potassium Chloride/Sodium Chloride (Normal Saline With 20 Meq Kcl) 1,000 mls @ 100 mls/hr IV ASDIRECTED [facility] Last Admin: 12/04/18 12:59 Dose: 100 mls/hr Potassium Chloride 10 meq/ (Premix) 100 mls @ 100 mls/hr IV Q1H [facility] Stop: 12/03/18 19:29 Last Admin: 12/03/18 21:50 Dose: 100 mls/hr Potassium Chloride 10 meq/ (Premix) 100 mls @ 100 mls/hr IV Q1H [facility] Stop: 12/03/18 22:59 Last Admin: 12/03/18 22:02 Dose: Not Given Magnesium Oxide (Magnesium Oxide) 400 mg PO ONETIME ONE Stop: 12/04/18 20:31 Last Admin: 12/04/18 21:09 Dose: Not Given Oseltamivir Phosphate (Tamiflu) 75 mg PO ONETIME ONE Stop: 12/03/18 09:07 Last Admin: 12/03/18 09:15 Dose: 75 mg Potassium Chloride (Klor-Con M20) 40 meq PO ONETIME ONE Stop: 12/03/18 09:18 Last Admin: 12/03/18 09:26 Dose: 40 meq Potassium Chloride (Klor-Con M20) 40 meq PO TID [facility] Stop: 12/03/18 21:01 Last Admin: 12/03/18 13:26 Dose: 40 meq Potassium Chloride (Potassium Chloride Solution) 40 meq PO TID [facility] Stop: 12/04/18 09:01 Last Admin: 12/03/18 14:41 Dose: Not Given Potassium Chloride (Klor-Con M20) 40 meq PO Q4H [facility] Stop: 12/05/18 00:31 Last Admin: 12/05/18 00:26 Dose: Not Given - Exam Quality Assessment: Supplemental Oxygen (4L), DVT Prophylaxis General: Alert, Oriented, Cooperative, No Acute Distress HEENT: Pupils Equal, Pupils Reactive, EOMI, Mucous Membr. Moist/[place] Neck: Supple, Trachea Midline, No JVD Lungs: Normal Respiratory Effort, Decreased Breath Sounds, Rhonchi Cardiovascular: Regular Rate, Regular Rhythm, Other (A-Fib with RVR earlier in day ) GI/Abdominal Exam: Normal Bowel Sounds, Soft, Non-Tender, No Distention, No Abnormal Bruit (Female) Exam: Deferred Back Exam: Normal Inspection, Full Range of Motion Extremities: Normal Inspection, Normal Range of Motion, Non-Tender, Normal Capillary Refill, Pedal Edema (trace to 1+ with R>L ) Peripheral Pulses: 1+: Dorsalis Pedis (L), Dorsalis Pedis (R), 2+: Radial (L), Radial (R) Skin: Warm, Dry, Intact Neurological: No New Focal Deficit Psy/Mental Status: Alert, Normal Affect, Normal Mood - Problem List & Annotations (1) Influenza B SNOMED Code(s): 44482164 Code(s): J10.1 - FLU DUE TO OTH IDENT INFLUENZA VIRUS W OTH RESP MANIFEST Status: Acute Priority: High Current Visit: Yes (2) Pneumonia SNOMED Code(s): 102011771 Code(s): J18.9 - PNEUMONIA, UNSPECIFIED ORGANISM Status: Acute Priority: High Current Visit: Yes Qualifiers: Pneumonia type: due to unspecified organism Laterality: left Lung location: unspecified part of lung Qualified Code(s): J18.9 - Pneumonia, unspecified organism (3) Generalized weakness SNOMED Code(s): 15954540 Code(s): R53.1 - WEAKNESS Status: Acute Priority: High Current Visit: Yes (4) Atrial fibrillation with RVR SNOMED Code(s): 709394366482886 Code(s): I48.91 - UNSPECIFIED ATRIAL FIBRILLATION Status: Acute Priority : High Current Visit: Yes - Problem List Review Problem List Initiated/Reviewed/Updated: Yes - My Orders Last 24 Hours: My Active Orders 12/05/18 10:54 SCD [Sequential Compression Device] [OM.PC] Routine 12/05/18 10:56 RT Aerosol Therapy [RC] ASDIRECTED 12/05/18 16:00 Ipratropium [Atrovent] 0.5 mg NEB QIDRT Levalbuterol HCl [Xopenex] 1.25 mg NEB QIDRT 12/06/18 07:19 Patient Status [ADT] Routine 12/06/18 07:20 Diltiazem [Cardizem] 10 mg IVPUSH ONETIME ONE 12/06/18 07:30 Diltiazem 125 MG in Normal Saline @ 5 MG/HR(100ml) Diltiazem 125 mg Sodium Chloride 0.9% [Normal Saline] 100 ml IV TITRATE 12/06/18 08:00 CXR [Chest 2V] [CR] Routine 12/06/18 09:00 Furosemide [Lasix] 40 mg PO DAILY - Plan Plan:: Impression/Plan: Acute: A-fib with RVR, Resolved in ICU - A-fib with HR in 120-140s - Onset while sleeping - Some runs of v-tac - Cardizem IVP given with excellent response - Upgrade to ICU - Start xarelto for stroke prophylaxis - pharmacy to dose - Troponin/CKMB: Negative - D-Dimer: 1.52 - CTA ordered - Echo ordered - CXR as below today Elevated D-Dimer - D-dimer 1.52 - CTA ordered - 250mL fluid bolus before and after scan Bilateral PNA w/Hypoxia - CXR report reads patchy areas of increased density within both sides of the chest - Ordered Sputum Cx ordered - RVP and Strep pneumonia Ag - negative - Scheduled Decongestant and Expectorant - IV Azithromycin and Rocephin -> stop - Switched to zosyn and vancomycin on 12/06/18 - Encouraged to use IS/FV as directed - CXR repeat 12/05/17: Worsening parenchymal change within both lungs - CXR repeat today: Stable - Has been non-compliant with our treatment plan - O2 as needed - RT consult - Scheduled xopenex and ipratropium - switched from albuterol to xopenex due to tachycardia - WBC has been steady at 12-13, worsening CRP Influenza B positive, Hx of vaccine - Continue Tamiflu - RVP negative for influenza but screening positive - marketing content 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 Hyperglycemia with DM2, improved - BS in the 200-300s; Today 180-200s - Continue home dose insulin - Accu-check AC/HS and Medium dose ISS - Has been refusing sliding scale insulin today Hypokalemia - 2.7 ->3.8-->3.7-->3.2 - Pharmacy to monitor and replete Resolved: S/p Dehydration - No ARF; she was at baseline S/P Hypomagnesemia - 2/2 inadequate intake - Replete and monitor Chronic: TIA/CVA CKD HF HTN HLD Depression Plan: Upgraded from floor to ICU status Sepsis protocol - lactic acids have been WNL Routine AM Labs Droplet precautions RT consult for pulmonary toilet Advance diet as tolerated PT/OT consult for deconditioning DVT/PE prophylaxis: Refusing Heparin so will order SCDs--> started on xarelto today SW/CM for d/c planning Code status: DNR; PCP: Dr. Winchester
[2018-12-06] MEDS ORDERED: Piperacillin/Tazobactam 4.5 GM in Sodium Chloride 0.9% 100 ML IV ONE (08:00)
[2018-12-06] MEDS: Oseltamivir 30 MG Cap PO SCH (09:15)
[2018-12-06] MEDS: Gabapentin 300 MG Cap PO SCH ×3 (09:15→20:13)
[2018-12-06] MEDS: Furosemide 40 MG Tab PO SCH (09:15)
[2018-12-06] MEDS: Clopidogrel 75 MG Tab PO SCH (09:15)
[2018-12-06] MEDS: Saccharomyces Boulardii (Probiotic) 250 MG Cap PO SCH ×2 (09:15→20:13)
[2018-12-06] MEDS ORDERED: Potassium Chloride 20 MEQ Tab.ER PO ONE (09:15)
[2018-12-06] MEDS: Aspirin 81 MG Tab.EC PO SCH (09:15)
[2018-12-06] MEDS: Rivaroxaban 10 MG Tab PO SCH (09:16)
--- NOTE | 2018-12-06 09:17 | CR ---
Chest: Two views of the chest were obtained. Comparison: Previous chest x-ray of 12/05/18. Diffuse increased density noted within both sides of the chest. Findings are stable from previous exam. Blunting of the posterior costophrenic angles is noted on the lateral view presumably representing minimal pleural effusions. Bony structures are osteopenic. Scoliosis is noted within the spine. Impression: 1. Findings as described above. No change from previous chest x-ray. Diagnostic code #3
[2018-12-06] MEDS: Insulin Glarg,Human.Rec.Analog 100 UNIT/ML ML SUBCUT SCH (09:53)
[2018-12-06] MEDS ORDERED: Metoprolol Tartrate 25 MG Tab PO SCH (11:00)
[2018-12-06] MEDS ORDERED: Sodium Chloride 0.9% 10 ML Syringe FLUSH PRN (11:37)
[2018-12-06] MEDS ORDERED: Iopamidol 755 Mg/ML 100 ML Bottle IVPUSH ONE (11:37)
[2018-12-06] MEDS ORDERED: Sodium Chloride 0.9% 100 ML IV SCH (11:45)
[2018-12-06] MEDS: Potassium Chloride 10 MEQ in Premix Bag 1 BAG IV SCH ×4 (12:27→17:41)
[2018-12-06] MEDS: Sodium Chloride 0.9% 500 ML IV ONE ×2 (12:28→14:30)
--- NOTE | 2018-12-06 15:05 | CT ---
CT chest Technique: Multiple axial sections through the chest were obtained. Intravenous contrast was utilized. Comparison: Prior noncontrast chest CT study of 10/26/15. Findings: Pulmonary arteries are well opacified. No filling defects are seen to indicate pulmonary embolism. Mediastinum and hilar region show no adenopathy or mass. Small to moderate sized bilateral pleural effusions are seen. Patchy areas of airspace disease seen throughout both sides of the chest fairly similar findings are noted on previous CT exam. Bone window settings were reviewed which show scattered degenerative change and scoliosis within the spine. Impression: 1. No findings of pulmonary embolism. 2. Small to moderate sized bilateral pleural effusions. Diffuse air space disease on both sides of the chest. Note: Interesting to note that these findings are fairly similar to prior chest CT although when comparing to subsequent chest x-rays the findings on 2014 did significantly improve on follow-up chest x-rays. Diagnostic code #3
[2018-12-06] MEDS: Piperacillin/Tazobactam 4.5 GM in Sodium Chloride 0.9% 100 ML IV SCH (16:47)
[2018-12-06] MEDS: Sodium Chloride 0.9% 1,000 ML IV SCH (17:00)
[2018-12-06] MEDS: Acetaminophen 325 MG Tab PO PRN (19:50)
[2018-12-06] MEDS: Metoprolol Tartrate 25 MG Tab PO SCH (21:00)
[2018-12-07] MEDS: Piperacillin/Tazobactam 4.5 GM in Sodium Chloride 0.9% 100 ML IV SCH ×4 (00:23→23:01)
[2018-12-07] MEDS: Sodium Chloride 0.9% 1,000 ML IV SCH (03:52)
[2018-12-07] MEDS: Levalbuterol HCl 1.25 MG/0.5 ML Neb NEB SCH ×4 (06:32→20:29)
[2018-12-07] MEDS: Ipratropium 0.02% 0.5 MG/2.5 ML Neb Soln NEB SCH ×4 (06:32→20:29)
[2018-12-07] MEDS: Insulin Lispro 100 Unit/ML 3 ML KwikPen SUBCUT SCH ×4 (06:46→21:33)
[2018-12-07] MEDS: guaiFENesin/Dextromethorphan 100-10 MG/5 ML Soln 5 ML Cup PO SCH ×3 (06:47→20:10)
[2018-12-07] MEDS ORDERED: Magnesium Sulfate/Water 2 GM in Premix Bag 1 BAG IV ONE (08:30)
[2018-12-07] MEDS: Potassium Chloride 10 MEQ in Premix Bag 1 BAG IV SCH ×6 (08:35→14:12)
[2018-12-07] MEDS: Saccharomyces Boulardii (Probiotic) 250 MG Cap PO SCH ×2 (08:39→20:10)
[2018-12-07] MEDS: Furosemide 40 MG Tab PO SCH (08:40)
[2018-12-07] MEDS: Oseltamivir 30 MG Cap PO SCH (08:40)
[2018-12-07] MEDS: Metoprolol Tartrate 25 MG Tab PO SCH ×2 (08:40→20:10)
[2018-12-07] MEDS: Aspirin 81 MG Tab.EC PO SCH (08:40)
[2018-12-07] MEDS: Clopidogrel 75 MG Tab PO SCH (08:40)
[2018-12-07] MEDS: Rivaroxaban 10 MG Tab PO SCH (08:41)
[2018-12-07] MEDS: Gabapentin 300 MG Cap PO SCH ×3 (08:41→20:11)
[2018-12-07] MEDS: Insulin Glarg,Human.Rec.Analog 100 UNIT/ML ML SUBCUT SCH (08:46)
--- NOTE | 2018-12-07 09:16 | PCM.PN ---
- General Info Date of Service: 12/07/18 Admission Dx/Problem (Free Text): Admission Diagnosis/Problem Admission Diagnosis/Problem Pneumonia Subjective Update: In to see [place]. This AM she developed into A-fib with RVR and was moved to the ICU. She converted with cardizem and will be started on 25mg BID metoprolol. Her WBC remained virtually the same and CRP worsened. She is still requiring 4L O2. After discussion with Dr. Sanches and pharmacy antibiotics were switched. She is more agreeable to treatment today as her daughter and sister are in the room. Encouraged to use IS/Acapella more. D-dimer was noted to be elevated so will order CTA to r/o PE and further delineate PNA. Functional Status: Reports: Pain Controlled, Tolerating Diet, Urinating. Denies : New Symptoms - Review of Systems General: Reports: Weakness, Malaise. Denies: Fever, Chills HEENT: Reports: No Symptoms Pulmonary: Reports: Cough. Denies: Shortness of Breath, Sputum, Wheezing Cardiovascular: Denies: Chest Pain, Dyspnea on Exertion, Edema, Lightheadedness Gastrointestinal: Denies: Abdominal Pain, Decreased Appetite, Nausea, Vomiting Genitourinary: Reports: No Symptoms Musculoskeletal: Reports: No Symptoms Skin: Denies: Cyanosis Neurological: Reports: Weakness, Gait Disturbance. Denies: Confusion Psychiatric: Denies: Depression, Anxiety, Agitation, Hallucinations Systems Review Comment:: No overnight or acute issues. She rested well and she looks much better than yesterday. She has been compliant and not refusing oral pills. She is low on K and Mg levels this AM. - Patient Data Vitals - Most Recent: Last Vital Signs Temp 36.6 C 12/07/18 08:00 Pulse 98 12/07/18 08:40 Resp 20 12/07/18 08:00 BP 149/64 H 12/07/18 08:40 Pulse Ox 90 L 12/07/18 08:00 Weight - Most Recent: 69.4 kg I&O - Last 24 Hours: Intake & Output 12/06/18 12/07/18 12/07/18 22:59 06:59 14:59 Intake Total 2650 800 Output Total 450 Balance 2200 800 Lab Results Last 24 Hours: Laboratory Results - last 24 hr 12/06/18 12/06/18 12/06/18 Range/Units 12:25 17:42 21:03 WBC (3.98-10.04) K/mm3 RBC (3.98-5.22) M/mm3 Hgb (11.2-15.7) gm/L Hct (34.1-44.9) % MCV (79.4-94.8) fl MCH (25.6-32.2) pg MCHC (32.2-35.5) g/dl RDW Std Deviation (36.4-46.3) fL Plt Count (182-369) K/mm3 MPV (9.4-12.3) fl Neut % (Auto) (34.0-71.1) % Lymph % (Auto) (19.3-51.7) % Barber % (Auto) (4.7-12.5) % Eos % (Auto) (0.7-5.8) Baso % (Auto) (0.1-1.2) % Neut # (Auto) (1.56-6.13) K/mm3 Lymph # (Auto) (1.18-3.74) K/mm3 [place] # (Auto) (0.24-0.36) K/mm3 Eos # (Auto) (0.04-0.36) K/mm3 Baso # (Auto) (0.01-0.08) K/mm3 Sodium (136-145) mEq/L Potassium (3.5-5.1) mEq/L Chloride (98-107) mEq/L Carbon Dioxide (21-32) mEq/L Anion Gap (5-15) BUN (7-18) mg/dL Creatinine (0.55-1.02) mg/dL Est Cr Clr Drug Dosing mL/min Estimated GFR (MDRD) (>60) mL/min BUN/Creatinine Ratio (14-18) Glucose (83-115) mg/dL POC Glucose 279 H 153 H 139 H (83-110) mg/dL Calcium (8.5-10.1) mg/dL Magnesium (1.8-2.4) mg/dl C-Reactive Protein (<1.0) mg/dL 12/07/18 12/07/18 12/07/18 Range/Units 05:46 05:46 06:39 WBC 13.17 H (3.98-10.04) K/mm3 RBC 3.44 L (3.98-5.22) M/mm3 Hgb 9.9 L (11.2-15.7) gm/L Hct 30.8 L (34.1-44.9) % MCV 89.5 (79.4-94.8) fl MCH 28.8 (25.6-32.2) pg MCHC 32.1 L (32.2-35.5) g/dl RDW Std Deviation 49.2 H (36.4-46.3) fL Plt Count 272 (182-369) K/mm3 MPV 10.2 (9.4-12.3) fl Neut % (Auto) 78.2 H (34.0-71.1) % Lymph % (Auto) 12.9 L (19.3-51.7) % Barber % (Auto) 6.5 (4.7-12.5) % Eos % (Auto) 1.6 (0.7-5.8) Baso % (Auto) 0.2 (0.1-1.2) % Neut # (Auto) 10.29 H (1.56-6.13) K/mm3 Lymph # (Auto) 1.70 (1.18-3.74) K/mm3 Barber # (Auto) 0.86 H (0.24-0.36) K/mm3 Eos # (Auto) 0.21 (0.04-0.36) K/mm3 Baso # (Auto) 0.03 (0.01-0.08) K/mm3 Sodium 139 (136-145) mEq/L Potassium 3.1 L (3.5-5.1) mEq/L Chloride 105 (98-107) mEq/L Carbon Dioxide 22 (21-32) mEq/L Anion Gap 15.1 H (5-15) BUN 8 (7-18) mg/dL Creatinine 1.1 H (0.55-1.02) mg/dL Est Cr Clr Drug Dosing 25.88 mL/min Estimated GFR (MDRD) 47 (>60) mL/min BUN/Creatinine Ratio 7.3 L (14-18) Glucose 85 (83-115) mg/dL POC Glucose 95 (83-110) mg/dL Calcium 8.3 L (8.5-10.1) mg/dL Magnesium 1.7 L (1.8-2.4) mg/dl C-Reactive Protein 24.1 H* (<1.0) mg/dL 12/07/18 Range/Units 08:46 WBC (3.98-10.04) K/mm3 RBC (3.98-5.22) M/mm3 Hgb (11.2-15.7) gm/L Hct (34.1-44.9) % MCV (79.4-94.8) fl MCH (25.6-32.2) pg MCHC (32.2-35.5) g/dl RDW Std Deviation (36.4-46.3) fL Plt Count (182-369) K/mm3 MPV (9.4-12.3) fl Neut % (Auto) (34.0-71.1) % Lymph % (Auto) (19.3-51.7) % Barber % (Auto) (4.7-12.5) % Eos % (Auto) (0.7-5.8) Baso % (Auto) (0.1-1.2) % Neut # (Auto) (1.56-6.13) K/mm3 Lymph # (Auto) (1.18-3.74) K/mm3 [place] # (Auto) (0.24-0.36) K/mm3 Eos # (Auto) (0.04-0.36) K/mm3 Baso # (Auto) (0.01-0.08) K/mm3 Sodium (136-145) mEq/L Potassium (3.5-5.1) mEq/L Chloride (98-107) mEq/L Carbon Dioxide (21-32) mEq/L Anion Gap (5-15) BUN (7-18) mg/dL Creatinine (0.55-1.02) mg/dL Est Cr Clr Drug Dosing mL/min Estimated GFR (MDRD) (>60) mL/min BUN/Creatinine Ratio (14-18) Glucose (83-115) mg/dL POC Glucose 157 H (83-110) mg/dL Calcium (8.5-10.1) mg/dL Magnesium (1.8-2.4) mg/dl C-Reactive Protein (<1.0) mg/dL Octavio Results Last 24 Hours: Microbiology 12/03/18 08:00 Aerobic Blood Culture - Preliminary Blood - Venous - Lab Draw NO GROWTH AFTER 4 DAYS Anaerobic Blood Culture - Preliminary NO GROWTH AFTER 4 DAYS 12/03/18 07:52 Aerobic Blood Culture - Preliminary Blood - Venous NO GROWTH AFTER 4 DAYS Anaerobic Blood Culture - Preliminary NO GROWTH AFTER 4 DAYS Med Orders - Current: Current Medications Acetaminophen (Tylenol) 650 mg PO Q6H PRN PRN Reason: Pain/Fever Last Admin: 12/06/18 19:50 Dose: 650 mg Albuterol (Proventil Neb Soln) 2.5 mg NEB Q4H PRN PRN Reason: Shortness of Breath Aspirin (Halfprin) 81 mg PO DAILY [facility] Last Admin: 12/07/18 08:40 Dose: 81 mg Calcium Carbonate/Glycine (Tums) 500 mg PO Q4H PRN PRN Reason: Heartburn Clopidogrel Bisulfate (Plavix) 75 mg PO DAILY [facility] Last Admin: 12/07/18 08:40 Dose: 75 mg Dextrose/Water (Dextrose 50% In Water) 50 ml IVPUSH ASDIRECTED PRN PRN Reason: Hypoglycemia Furosemide (Lasix) 40 mg PO DAILY [facility] Last Admin: 12/07/18 08:40 Dose: 40 mg Gabapentin (Neurontin) 300 mg PO TID [facility] Last Admin: 12/07/18 08:41 Dose: 300 mg Guaifenesin/Phenylephrine HCl (Robitussin Dm) 5 ml PO TID@0700,1400,2100 [facility] Last Admin: 12/07/18 06:47 Dose: Not Given Hydralazine HCl (Apresoline) 10 mg IVPUSH Q4H PRN PRN Reason: Hypertension Last Admin: 12/05/18 10:58 Dose: 10 mg Diltiazem HCl 125 mg/ Sodium (Chloride) 125 mls @ 5 mls/hr IV TITRATE [facility]; Protocol Piperacillin Sod/Tazobactam (Sod 4.5 gm/ Sodium Chloride) 100 mls @ 25 mls/hr IV Q8H [facility] Last Admin: 12/07/18 08:35 Dose: 25 mls/hr Vancomycin HCl 1 gm/ Sodium (Chloride) 250 mls @ 250 mls/hr IV Q24H [facility] Last Admin: 12/06/18 12:27 Dose: 250 mls/hr Sodium Chloride (Normal Saline) 1,000 mls @ 50 mls/hr IV ASDIRECTED [facility] Last Admin: 12/07/18 03:52 Dose: 50 mls/hr Potassium Chloride 10 meq/ (Premix) 100 mls @ 100 mls/hr IV Q1H [facility] Stop: 12/07/18 14:29 Last Admin: 12/07/18 08:35 Dose: 100 mls/hr Magnesium Sulfate 2 gm/ Premix 50 mls @ 25 mls/hr IV ONETIME ONE Stop: 12/07/18 10:29 Last Admin: 12/07/18 08:36 Dose: 25 mls/hr Insulin Glargine (Lantus) 30 unit SUBCUT DAILY [facility] Last Admin: 12/07/18 08:46 Dose: 30 unit Insulin Human Lispro (Humalog) 0 unit SUBCUT QIDACANDBED [facility]; Protocol Last Admin: 12/07/18 06:46 Dose: Not Given Ipratropium [place] (Atrovent) 0.5 mg NEB QIDRT [facility] Last Admin: 12/07/18 09:13 Dose: 0.5 mg Levalbuterol HCl (Xopenex) 1.25 mg NEB QIDRT [facility] Last Admin: 12/07/18 09:13 Dose: 1.25 mg Loratadine (Claritin) 10 mg PO DAILY PRN PRN Reason: Allergies Magnesium Sulfate (Pharmacy To Dose - Magnesium Replacement) 0 dose .XX ASDIRECTED PRN PRN Reason: RX TO WATCH MAG Metoprolol Tartrate (Lopressor) 5 mg IVPUSH Q4H PRN PRN Reason: Tachycardia Metoprolol Tartrate (Lopressor) 25 mg PO Q12H [facility] Last Admin: 12/07/18 08:40 Dose: 25 mg Ondansetron HCl (Zofran) 4 mg IVPUSH Q8H PRN PRN Reason: Nausea/Vomiting Potassium Chloride (Pharmacy To Dose - Potassium Replacement) 0 dose .XX ASDIRECTED PRN PRN Reason: RX TO WATCH K Rivaroxaban (Xarelto) 15 mg PO DAILY [facility] Last Admin: 12/07/18 08:41 Dose: 15 mg Saccharomyces Boulardii (Florastor) 250 mg PO BID [facility] Last Admin: 12/07/18 08:39 Dose: 250 mg Senna/Docusate Sodium (Senna Plus) 1 tab PO DAILY PRN PRN Reason: Constipation Sodium Chloride (Saline Flush) 10 ml FLUSH ASDIRECTED PRN PRN Reason: Keep Vein Open Last Admin: 12/03/18 08:15 Dose: 10 ml Sodium Chloride (Saline Flush) 10 ml FLUSH ONETIME PRN PRN Reason: IV FLUSH Last Admin: 12/06/18 14:08 Dose: 10 ml Vancomycin HCl (Pharmacy To Dose - Vancomycin) 0 dose .XX DAILY PRN PRN Reason: RX TO DOSE VANCO Discontinued Medications Albuterol/Ipratropium (Duoneb 3.0-0.5 Mg/3 Ml) 3 ml NEB QID [facility] Last Admin: 12/03/18 21:30 Dose: 3 ml Albuterol/Ipratropium (Duoneb 3.0-0.5 Mg/3 Ml) 3 ml NEB QIDRT [facility] Last Admin: 12/05/18 09:14 Dose: 3 ml Diltiazem HCl (Cardizem) 10 mg IVPUSH ONETIME ONE Stop: 12/06/18 07:21 Last Admin: 12/06/18 07:42 Dose: 10 mg Diltiazem HCl (Cardizem) 5 mg IVPUSH ONETIME ONE Stop: 12/06/18 09:41 Last Admin: 12/06/18 09:53 Dose: 5 mg Heparin Sodium (Porcine) (Heparin Sodium) 5,000 units SUBCUT Q8H [facility] Last Admin: 12/05/18 05:57 Dose: Not Given Ceftriaxone Sodium 2 gm/ (Sodium Chloride) 100 mls @ 200 mls/hr IV ONETIME ONE Stop: 12/03/18 08:33 Last Admin: 12/03/18 08:37 Dose: 200 mls/hr Sodium Chloride (Normal Saline) 1,000 mls @ 1,000 mls/hr IV .BOLUS [facility] Last Admin: 12/03/18 08:15 Dose: 1,000 mls/hr Azithromycin 500 mg/ Sodium (Chloride) 250 mls @ 250 mls/hr IV Q24H [facility] Last Admin: 12/05/18 12:06 Dose: 250 mls/hr Ceftriaxone Sodium 2 gm/ (Sodium Chloride) 100 mls @ 200 mls/hr IV Q24H [facility] Last Admin: 12/05/18 08:46 Dose: 200 mls/hr Potassium Chloride/Sodium Chloride (Normal Saline With 20 Meq Kcl) 1,000 mls @ 100 mls/hr IV ASDIRECTED [facility] Last Admin: 12/04/18 12:59 Dose: 100 mls/hr Potassium Chloride 10 meq/ (Premix) 100 mls @ 100 mls/hr IV Q1H [facility] Stop: 12/03/18 19:29 Last Admin: 12/03/18 21:50 Dose: 100 mls/hr Potassium Chloride 10 meq/ (Premix) 100 mls @ 100 mls/hr IV Q1H [facility] Stop: 12/03/18 22:59 Last Admin: 12/03/18 22:02 Dose: Not Given Piperacillin Sod/Tazobactam (Sod 4.5 gm/ Sodium Chloride) 100 mls @ 200 mls/hr IV ONETIME ONE Stop: 12/06/18 08:29 Last Admin: 12/06/18 09:15 Dose: 200 mls/hr Potassium Chloride 10 meq/ (Premix) 100 mls @ 100 mls/hr IV Q1H [facility] Stop: 12/06/18 14:59 Last Admin: 12/06/18 17:41 Dose: 100 mls/hr Sodium Chloride (Normal Saline) 500 mls @ 999 mls/hr IV .BOLUS ONE Stop: 12/06/18 11:29 Last Admin: 12/06/18 14:30 Dose: 999 mls/hr Sodium Chloride (Normal Saline) 100 mls @ 75 mls/hr IV ASDIRECTED [facility] Last Admin: 12/06/18 14:09 Dose: 75 mls/hr Iopamidol (Isovue-370 (76%)) 100 ml IVPUSH ONETIME ONE Stop: 12/06/18 11:38 Last Admin: 12/06/18 14:08 Dose: 100 ml Magnesium Oxide (Magnesium Oxide) 400 mg PO ONETIME ONE Stop: 12/04/18 20:31 Last Admin: 12/04/18 21:09 Dose: Not Given Metoprolol Tartrate (Lopressor) 25 mg PO Q12H [facility] Last Admin: 12/06/18 12:32 Dose: 25 mg Oseltamivir Phosphate (Tamiflu) 75 mg PO ONETIME ONE Stop: 12/03/18 09:07 Last Admin: 12/03/18 09:15 Dose: 75 mg Oseltamivir Phosphate (Tamiflu) 30 mg PO DAILY [facility] Stop: 12/07/18 09:01 Last Admin: 12/07/18 08:40 Dose: 30 mg Potassium Chloride (Klor-Con M20) 40 meq PO ONETIME ONE Stop: 12/03/18 09:18 Last Admin: 12/03/18 09:26 Dose: 40 meq Potassium Chloride (Klor-Con M20) 40 meq PO TID [facility] Stop: 12/03/18 21:01 Last Admin: 12/03/18 13:26 Dose: 40 meq Potassium Chloride (Potassium Chloride Solution) 40 meq PO TID [facility] Stop: 12/04/18 09:01 Last Admin: 12/03/18 14:41 Dose: Not Given Potassium Chloride (Klor-Con M20) 40 meq PO Q4H [facility] Stop: 12/05/18 00:31 Last Admin: 12/05/18 00:26 Dose: Not Given Potassium Chloride (Klor-Con M20) 40 meq PO ONETIME ONE Stop: 12/06/18 09:16 Last Admin: 12/06/18 09:29 Dose: Not Given - Exam General: Alert, Oriented, Cooperative, No Acute Distress HEENT: Pupils Equal, Pupils Reactive, EOMI, Mucous Membr. Moist/[place] Neck: Supple Lungs: Normal Respiratory Effort, Decreased Breath Sounds, Crackles Cardiovascular: Regular Rate, Regular Rhythm GI/Abdominal Exam: Normal Bowel Sounds, Soft, Non-Tender, No Organomegaly, No Distention, No Abnormal Bruit (Female) Exam: Deferred Back Exam: Normal Inspection, Decreased Range of Motion Extremities: Normal Inspection, Normal Range of Motion, Non-Tender, No Pedal Edema, Normal Capillary Refill Peripheral Pulses: 2+: Dorsalis Pedis (L), Dorsalis Pedis (R) Skin: Warm, Dry, Intact Neurological: No New Focal Deficit Psy/Mental Status: Alert, Normal Affect, Normal Mood - Problem List Review Problem List Initiated/Reviewed/Updated: Yes - My Orders Last 24 Hours: My Active Orders 12/06/18 10:47 Pharmacy to Dose - Vancomycin 0 dose .XX DAILY PRN 12/06/18 11:00 Vancomycin [Vancocin] 1 gm Sodium Chloride 0.9% [Normal Saline] 250 ml IV Q24H 12/07/18 08:30 Magnesium Sulfate/Water [Magnesium Sulfate 2 GM in Water 50 ML] 2 gm Premix Bag 1 bag IV ONETIME Potassium Chloride [KCl 10 MEQ in Water 100 ML] 10 meq Premix Bag 1 bag IV Q1H 12/08/18 10:30 VANCOMYCIN TROUGH [CHEM] Timed - Plan Plan:: Impression/Plan: Acute: Bilateral PNA Improving Hypoxia - CXR report reads patchy areas of increased density within both sides of the chest - Ordered Sputum Cx ordered - RVP and Strep pneumonia Ag - negative - Scheduled Decongestant and Expectorant; added Tessalon Perles 100 mg po BID - IV Azithromycin and Rocephin -> stop - Continue IV zosyn and vancomycin on 12/06/18 - Encouraged to use IS/FV as directed - CXR repeat 12/05/17: Worsening parenchymal change within both lungs - CXR repeat today: essentially the same - She is now more compliant with our treatment plan - O2 now down to 3L; Continue RT to assess and treat - Scheduled xopenex and ipratropium - switched from albuterol to xopenex due to tachycardia - WBC has been steady at 12-13, CRP starting to improve Influenza B positive, Hx of vaccine - Continue Tamiflu - RVP negative for influenza but screening positive - 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 Hyperglycemia with DM2, improved - BS in the 200-300s; improved - Continue home dose insulin - Accu-check AC/HS and Medium dose ISS - She has been compliant with ISS B/L Pleural Effusion - R>>L - Small-Moderate per chest CTA - Invasive procedure is not indicated at this time - We'll stay with medical management Hypokalemia and Hypomagnesemia - Mg 1.7 - K 2.7 ->3.8-->3.7-->3.2 --> 3.1 - 2/2 inadequate intake and diuresis - Pharmacy to monitor and replete Generalized Weakness - 2/2 CAP, Bilateral Pleural Effusion and Influenza Infection - Stressed the importance of medical compliance Resolved: S/p Dehydration - No ARF; she was at baseline S/P Hypomagnesemia - 2/2 inadequate intake - Replete and monitor S/p A-fib with RVR, Resolved in ICU - A-fib with HR in 120-140s - Onset while sleeping - Some runs of v-tac - Cardizem IVP given with excellent response - Upgrade to ICU - Start xarelto for stroke prophylaxis - pharmacy to dose - Troponin/CKMB: Negative - D-Dimer: 1.52 - CTA ordered - Echo completed pending report - CXR no change from previous study S/p Elevated D-Dimer - D-dimer 1.52 - CTA showed no PE - 250mL fluid bolus before and after scan Chronic: TIA/CVA CKD HF HTN HLD Depression Plan: She is much better clinically Downgrade to [facility] with Tele Routine AM Labs Droplet precautions IVF to KVO at 15 cc/hr then d/c once current bag is done RT consult for pulmonary toilet HCTZ 12.5 mg po BID x 4 only Advance diet as tolerated PT/OT treatment for deconditioning if services is available DVT/PE prophylaxis: Refusing Heparin so will order SCDs--> continued xarelto 15 mg po daily SW/CM for d/c planning Code status: DNR; PCP: Dr. Winchester LOS 96 hrs due to slow response to treatment. Updated sister and patient regarding morning lab results, imaging report, and treatment plan at bedside.
[2018-12-07] MEDS: Hydrochlorothiazide 12.5 MG Cap PO SCH (14:50)
[2018-12-07] MEDS: Benzonatate 100 MG Cap PO SCH (20:10)
[2018-12-08] MEDS: Ipratropium 0.02% 0.5 MG/2.5 ML Neb Soln NEB SCH ×4 (06:28→20:31)
[2018-12-08] MEDS: Levalbuterol HCl 1.25 MG/0.5 ML Neb NEB SCH ×4 (06:28→20:31)
[2018-12-08] MEDS: Insulin Lispro 100 Unit/ML 3 ML KwikPen SUBCUT SCH ×4 (06:30→21:26)
[2018-12-08] MEDS: guaiFENesin/Dextromethorphan 100-10 MG/5 ML Soln 5 ML Cup PO SCH ×3 (06:30→20:19)
[2018-12-08] MEDS: Hydrochlorothiazide 12.5 MG Cap PO SCH ×2 (06:30→15:59)
--- NOTE | 2018-12-08 08:34 | PCM.PN ---
- General Info Date of Service: 12/08/18 Admission Dx/Problem (Free Text): Admission Diagnosis/Problem Admission Diagnosis/Problem Pneumonia Subjective Update: Follow Up Functional Status: Reports: Pain Controlled, Tolerating Diet, Ambulating, Urinating. Denies: New Symptoms - Review of Systems General: Reports: Weakness (but better). Denies: Fever, Fatigue, Malaise, Chills HEENT: Reports: No Symptoms. Denies: Sore Throat Pulmonary: Reports: Cough (but better). Denies: Shortness of Breath Cardiovascular: Denies: Chest Pain, Palpitations, Dyspnea on Exertion, Edema, Lightheadedness Gastrointestinal: Denies: Abdominal Pain, Decreased Appetite, Nausea, Vomiting Genitourinary: Reports: No Symptoms Musculoskeletal: Reports: No Symptoms Skin: Reports: No Symptoms Neurological: Reports: Difficulty Walking, Gait Disturbance. Denies: Confusion Psychiatric: Denies: Depression, Anxiety, Agitation, Hallucinations Systems Review Comment:: She had an uneventful night. She rested well. She has been going to the bathroom more than usual. Her coughing has improved considerably. She feels slowly getting better. - Patient Data Vitals - Most Recent: Last Vital Signs Temp 37.3 C 12/08/18 02:19 Pulse 87 12/08/18 02:19 Resp 22 H 12/08/18 02:19 BP 142/56 H 12/08/18 02:19 Pulse Ox 93 L 12/08/18 06:29 Weight - Most Recent: 71.441 kg I&O - Last 24 Hours: Intake & Output 12/07/18 12/08/18 12/08/18 22:59 06:59 14:59 Intake Total 1973 1405 Output Total 300 Balance 1673 1405 Lab Results Last 24 Hours: Laboratory Results - last 24 hr 12/07/18 12/07/18 12/07/18 Range/Units 08:46 11:26 17:34 WBC (3.98-10.04) K/mm3 RBC (3.98-5.22) M/mm3 Hgb (11.2-15.7) gm/L Hct (34.1-44.9) % MCV (79.4-94.8) fl MCH (25.6-32.2) pg MCHC (32.2-35.5) g/dl RDW Std Deviation (36.4-46.3) fL Plt Count (182-369) K/mm3 MPV (9.4-12.3) fl Neut % (Auto) (34.0-71.1) % Lymph % (Auto) (19.3-51.7) % [place] % (Auto) (4.7-12.5) % Eos % (Auto) (0.7-5.8) Baso % (Auto) (0.1-1.2) % Neut # (Auto) (1.56-6.13) K/mm3 Lymph # (Auto) (1.18-3.74) K/mm3 [place] # (Auto) (0.24-0.36) K/mm3 Eos # (Auto) (0.04-0.36) K/mm3 Baso # (Auto) (0.01-0.08) K/mm3 Sodium (136-145) mEq/L Potassium (3.5-5.1) mEq/L Chloride (98-107) mEq/L Carbon Dioxide (21-32) mEq/L Anion Gap (5-15) BUN (7-18) mg/dL Creatinine (0.55-1.02) mg/dL Est Cr Clr Drug Dosing mL/min Estimated GFR (MDRD) (>60) mL/min BUN/Creatinine Ratio (14-18) Glucose (83-115) mg/dL POC Glucose 157 H 199 H 161 H (83-110) mg/dL Calcium (8.5-10.1) mg/dL Total Bilirubin (0.2-1.0) mg/dL AST (15-37) U/L ALT (14-59) U/L Alkaline Phosphatase (46-116) U/L Total Protein (6.4-8.2) g/dl Albumin (3.4-5.0) g/dl Globulin gm/dL Albumin/Globulin Ratio (1-2) 12/07/18 12/08/18 12/08/18 Range/Units 20:25 06:16 06:17 WBC (3.98-10.04) K/mm3 RBC (3.98-5.22) M/mm3 Hgb (11.2-15.7) gm/L Hct (34.1-44.9) % MCV (79.4-94.8) fl MCH (25.6-32.2) pg MCHC (32.2-35.5) g/dl RDW Std Deviation (36.4-46.3) fL Plt Count (182-369) K/mm3 MPV (9.4-12.3) fl Neut % (Auto) (34.0-71.1) % Lymph % (Auto) (19.3-51.7) % [place] % (Auto) (4.7-12.5) % Eos % (Auto) (0.7-5.8) Baso % (Auto) (0.1-1.2) % Neut # (Auto) (1.56-6.13) K/mm3 Lymph # (Auto) (1.18-3.74) K/mm3 [place] # (Auto) (0.24-0.36) K/mm3 Eos # (Auto) (0.04-0.36) K/mm3 Baso # (Auto) (0.01-0.08) K/mm3 Sodium 138 (136-145) mEq/L Potassium 3.5 (3.5-5.1) mEq/L Chloride 105 (98-107) mEq/L Carbon Dioxide 24 (21-32) mEq/L Anion Gap 12.5 (5-15) BUN 8 (7-18) mg/dL Creatinine 1.2 H (0.55-1.02) mg/dL Est Cr Clr Drug Dosing 23.72 mL/min Estimated GFR (MDRD) 42 (>60) mL/min BUN/Creatinine Ratio 6.7 L (14-18) Glucose 98 (83-115) mg/dL POC Glucose 219 H 102 (83-110) mg/dL Calcium 8.4 L (8.5-10.1) mg/dL Total Bilirubin 0.6 (0.2-1.0) mg/dL AST 19 (15-37) U/L ALT 14 (14-59) U/L Alkaline Phosphatase 62 (46-116) U/L Total Protein 6.0 L (6.4-8.2) g/dl Albumin 2.1 L (3.4-5.0) g/dl Globulin 3.9 gm/dL Albumin/Globulin Ratio 0.5 L (1-2) 12/08/18 Range/Units 06:17 WBC 12.53 H (3.98-10.04) K/mm3 RBC 3.34 L (3.98-5.22) M/mm3 Hgb 9.7 L (11.2-15.7) gm/L Hct 29.9 L (34.1-44.9) % MCV 89.5 (79.4-94.8) fl MCH 29.0 (25.6-32.2) pg MCHC 32.4 (32.2-35.5) g/dl RDW Std Deviation 49.1 H (36.4-46.3) fL Plt Count 278 (182-369) K/mm3 MPV 9.7 (9.4-12.3) fl Neut % (Auto) 77.9 H (34.0-71.1) % Lymph % (Auto) 12.2 L (19.3-51.7) % [place] % (Auto) 6.4 (4.7-12.5) % Eos % (Auto) 2.7 (0.7-5.8) Baso % (Auto) 0.2 (0.1-1.2) % Neut # (Auto) 9.75 H (1.56-6.13) K/mm3 Lymph # (Auto) 1.53 (1.18-3.74) K/mm3 [place] # (Auto) 0.80 H (0.24-0.36) K/mm3 Eos # (Auto) 0.34 (0.04-0.36) K/mm3 Baso # (Auto) 0.03 (0.01-0.08) K/mm3 Sodium (136-145) mEq/L Potassium (3.5-5.1) mEq/L Chloride (98-107) mEq/L Carbon Dioxide (21-32) mEq/L Anion Gap (5-15) BUN (7-18) mg/dL Creatinine (0.55-1.02) mg/dL Est Cr Clr Drug Dosing mL/min Estimated GFR (MDRD) (>60) mL/min BUN/Creatinine Ratio (14-18) Glucose (83-115) mg/dL POC Glucose (83-110) mg/dL Calcium (8.5-10.1) mg/dL Total Bilirubin (0.2-1.0) mg/dL AST (15-37) U/L ALT (14-59) U/L Alkaline Phosphatase (46-116) U/L Total Protein (6.4-8.2) g/dl Albumin (3.4-5.0) g/dl Globulin gm/dL Albumin/Globulin Ratio (1-2) Octavio Results Last 24 Hours: Microbiology 12/03/18 08:00 Aerobic Blood Culture - Preliminary Blood - Venous - Lab Draw NO GROWTH AFTER 5 DAYS Anaerobic Blood Culture - Preliminary NO GROWTH AFTER 5 DAYS 12/03/18 07:52 Aerobic Blood Culture - Preliminary Blood - Venous NO GROWTH AFTER 5 DAYS Anaerobic Blood Culture - Preliminary NO GROWTH AFTER 5 DAYS Med Orders - Current: Current Medications Acetaminophen (Tylenol) 650 mg PO Q6H PRN PRN Reason: Pain/Fever Last Admin: 12/06/18 19:50 Dose: 650 mg Albuterol (Proventil Neb Soln) 2.5 mg NEB Q4H PRN PRN Reason: Shortness of Breath Last Admin: 12/07/18 12:33 Dose: 2.5 mg Aspirin (Halfprin) 81 mg PO DAILY [facility] Last Admin: 12/07/18 08:40 Dose: 81 mg Benzonatate (Tessalon Perles) 100 mg PO BID [facility] Last Admin: 12/07/18 20:10 Dose: 100 mg Calcium Carbonate/Glycine (Tums) 500 mg PO Q4H PRN PRN Reason: Heartburn Clopidogrel Bisulfate (Plavix) 75 mg PO DAILY [facility] Last Admin: 12/07/18 08:40 Dose: 75 mg Dextrose/Water (Dextrose 50% In Water) 50 ml IVPUSH ASDIRECTED PRN PRN Reason: Hypoglycemia Furosemide (Lasix) 40 mg PO DAILY [facility] Last Admin: 12/07/18 08:40 Dose: 40 mg Gabapentin (Neurontin) 300 mg PO TID [facility] Last Admin: 12/07/18 20:11 Dose: 300 mg Guaifenesin/Phenylephrine HCl (Robitussin Dm) 5 ml PO TID@0700,1400,2100 [facility] Last Admin: 12/08/18 06:30 Dose: 5 ml Hydralazine HCl (Apresoline) 10 mg IVPUSH Q4H PRN PRN Reason: Hypertension Last Admin: 12/05/18 10:58 Dose: 10 mg Hydrochlorothiazide (Hydrochlorothiazide) 12.5 mg PO BIDDIURETIC [facility] Stop: 12/09/18 06:01 Last Admin: 12/08/18 06:30 Dose: 12.5 mg Diltiazem HCl 125 mg/ Sodium (Chloride) 125 mls @ 5 mls/hr IV TITRATE [facility]; Protocol Piperacillin Sod/Tazobactam (Sod 4.5 gm/ Sodium Chloride) 100 mls @ 25 mls/hr IV Q8H [facility] Last Admin: 12/07/18 23:01 Dose: 25 mls/hr Vancomycin HCl 1 gm/ Sodium (Chloride) 250 mls @ 250 mls/hr IV Q24H [facility] Last Admin: 12/07/18 11:25 Dose: 250 mls/hr Sodium Chloride (Normal Saline) 1,000 mls @ 50 mls/hr IV ASDIRECTED [facility] Last Admin: 12/07/18 03:52 Dose: 50 mls/hr Insulin Glargine (Lantus) 30 unit SUBCUT DAILY [facility] Last Admin: 12/07/18 08:46 Dose: 30 unit Insulin Human Lispro (Humalog) 0 unit SUBCUT QIDACANDBED [facility]; Protocol Last Admin: 12/08/18 06:30 Dose: Not Given Ipratropium [place] (Atrovent) 0.5 mg NEB QIDRT [facility] Last Admin: 12/08/18 06:28 Dose: 0.5 mg Levalbuterol HCl (Xopenex) 1.25 mg NEB QIDRT [facility] Last Admin: 12/08/18 06:28 Dose: 1.25 mg Loratadine (Claritin) 10 mg PO DAILY PRN PRN Reason: Allergies Magnesium Sulfate (Pharmacy To Dose - Magnesium Replacement) 0 dose .XX ASDIRECTED PRN PRN Reason: RX TO WATCH MAG Metoprolol Tartrate (Lopressor) 5 mg IVPUSH Q4H PRN PRN Reason: Tachycardia Metoprolol Tartrate (Lopressor) 25 mg PO Q12H [facility] Last Admin: 12/07/18 20:10 Dose: 25 mg Ondansetron HCl (Zofran) 4 mg IVPUSH Q8H PRN PRN Reason: Nausea/Vomiting Potassium Chloride (Pharmacy To Dose - Potassium Replacement) 0 dose .XX ASDIRECTED PRN PRN Reason: RX TO WATCH K Rivaroxaban (Xarelto) 15 mg PO DAILY [facility] Last Admin: 12/07/18 08:41 Dose: 15 mg Saccharomyces Boulardii (Florastor) 250 mg PO BID [facility] Last Admin: 12/07/18 20:10 Dose: 250 mg Senna/Docusate Sodium (Senna Plus) 1 tab PO DAILY PRN PRN Reason: Constipation Sodium Chloride (Saline Flush) 10 ml FLUSH ASDIRECTED PRN PRN Reason: Keep Vein Open Last Admin: 12/03/18 08:15 Dose: 10 ml Sodium Chloride (Saline Flush) 10 ml FLUSH ONETIME PRN PRN Reason: IV FLUSH Last Admin: 12/06/18 14:08 Dose: 10 ml Vancomycin HCl (Pharmacy To Dose - Vancomycin) 0 dose .XX DAILY PRN PRN Reason: RX TO DOSE VANCO Discontinued Medications Albuterol/Ipratropium (Duoneb 3.0-0.5 Mg/3 Ml) 3 ml NEB QID [facility] Last Admin: 12/03/18 21:30 Dose: 3 ml Albuterol/Ipratropium (Duoneb 3.0-0.5 Mg/3 Ml) 3 ml NEB QIDRT [facility] Last Admin: 12/05/18 09:14 Dose: 3 ml Diltiazem HCl (Cardizem) 10 mg IVPUSH ONETIME ONE Stop: 12/06/18 07:21 Last Admin: 12/06/18 07:42 Dose: 10 mg Diltiazem HCl (Cardizem) 5 mg IVPUSH ONETIME ONE Stop: 12/06/18 09:41 Last Admin: 12/06/18 09:53 Dose: 5 mg Heparin Sodium (Porcine) (Heparin Sodium) 5,000 units SUBCUT Q8H [facility] Last Admin: 12/05/18 05:57 Dose: Not Given Ceftriaxone Sodium 2 gm/ (Sodium Chloride) 100 mls @ 200 mls/hr IV ONETIME ONE Stop: 12/03/18 08:33 Last Admin: 12/03/18 08:37 Dose: 200 mls/hr Sodium Chloride (Normal Saline) 1,000 mls @ 1,000 mls/hr IV .BOLUS [facility] Last Admin: 12/03/18 08:15 Dose: 1,000 mls/hr Azithromycin 500 mg/ Sodium (Chloride) 250 mls @ 250 mls/hr IV Q24H [facility] Last Admin: 12/05/18 12:06 Dose: 250 mls/hr Ceftriaxone Sodium 2 gm/ (Sodium Chloride) 100 mls @ 200 mls/hr IV Q24H [facility] Last Admin: 12/05/18 08:46 Dose: 200 mls/hr Potassium Chloride/Sodium Chloride (Normal Saline With 20 Meq Kcl) 1,000 mls @ 100 mls/hr IV ASDIRECTED [facility] Last Admin: 12/04/18 12:59 Dose: 100 mls/hr Potassium Chloride 10 meq/ (Premix) 100 mls @ 100 mls/hr IV Q1H [facility] Stop: 12/03/18 19:29 Last Admin: 12/03/18 21:50 Dose: 100 mls/hr Potassium Chloride 10 meq/ (Premix) 100 mls @ 100 mls/hr IV Q1H [facility] Stop: 12/03/18 22:59 Last Admin: 12/03/18 22:02 Dose: Not Given Piperacillin Sod/Tazobactam (Sod 4.5 gm/ Sodium Chloride) 100 mls @ 200 mls/hr IV ONETIME ONE Stop: 12/06/18 08:29 Last Admin: 12/06/18 09:15 Dose: 200 mls/hr Potassium Chloride 10 meq/ (Premix) 100 mls @ 100 mls/hr IV Q1H [facility] Stop: 12/06/18 14:59 Last Admin: 12/06/18 17:41 Dose: 100 mls/hr Sodium Chloride (Normal Saline) 500 mls @ 999 mls/hr IV .BOLUS ONE Stop: 12/06/18 11:29 Last Admin: 12/06/18 14:30 Dose: 999 mls/hr Sodium Chloride (Normal Saline) 100 mls @ 75 mls/hr IV ASDIRECTED [facility] Last Admin: 12/06/18 14:09 Dose: 75 mls/hr Potassium Chloride 10 meq/ (Premix) 100 mls @ 100 mls/hr IV Q1H [facility] Stop: 12/07/18 14:29 Last Admin: 12/07/18 14:12 Dose: 100 mls/hr Magnesium Sulfate 2 gm/ Premix 50 mls @ 25 mls/hr IV ONETIME ONE Stop: 12/07/18 10:29 Last Admin: 12/07/18 08:36 Dose: 25 mls/hr Iopamidol (Isovue-370 (76%)) 100 ml IVPUSH ONETIME ONE Stop: 12/06/18 11:38 Last Admin: 12/06/18 14:08 Dose: 100 ml Magnesium Oxide (Magnesium Oxide) 400 mg PO ONETIME ONE Stop: 12/04/18 20:31 Last Admin: 12/04/18 21:09 Dose: Not Given Metoprolol Tartrate (Lopressor) 25 mg PO Q12H [facility] Last Admin: 12/06/18 12:32 Dose: 25 mg Oseltamivir Phosphate (Tamiflu) 75 mg PO ONETIME ONE Stop: 12/03/18 09:07 Last Admin: 12/03/18 09:15 Dose: 75 mg Oseltamivir Phosphate (Tamiflu) 30 mg PO DAILY [facility] Stop: 12/07/18 09:01 Last Admin: 12/07/18 08:40 Dose: 30 mg Potassium Chloride (Klor-Con M20) 40 meq PO ONETIME ONE Stop: 12/03/18 09:18 Last Admin: 12/03/18 09:26 Dose: 40 meq Potassium Chloride (Klor-Con M20) 40 meq PO TID [facility] Stop: 12/03/18 21:01 Last Admin: 12/03/18 13:26 Dose: 40 meq Potassium Chloride (Potassium Chloride Solution) 40 meq PO TID [facility] Stop: 12/04/18 09:01 Last Admin: 12/03/18 14:41 Dose: Not Given Potassium Chloride (Klor-Con M20) 40 meq PO Q4H [facility] Stop: 12/05/18 00:31 Last Admin: 12/05/18 00:26 Dose: Not Given Potassium Chloride (Klor-Con M20) 40 meq PO ONETIME ONE Stop: 12/06/18 09:16 Last Admin: 12/06/18 09:29 Dose: Not Given - Exam Quality Assessment: Supplemental Oxygen General: Alert, Oriented, Cooperative, No Acute Distress HEENT: Pupils Equal, Pupils Reactive, EOMI, Mucous Membr. Moist/[place] Neck: Supple, Trachea Midline Lungs: Normal Respiratory Effort, Decreased Breath Sounds, Crackles Cardiovascular: Regular Rate, Regular Rhythm GI/Abdominal Exam: Normal Bowel Sounds, Soft, Non-Tender, No Organomegaly, No Distention, No Abnormal Bruit, No Mass (Female) Exam: Deferred Back Exam: Normal Inspection, Decreased Range of Motion Extremities: Normal Inspection, Normal Range of Motion, Non-Tender, No Pedal Edema, Normal Capillary Refill Peripheral Pulses: 2+: Dorsalis Pedis (L), Dorsalis Pedis (R) Skin: Warm, Dry, Intact Neurological: No New Focal Deficit. No: Normal Gait Psy/Mental Status: Alert, Normal Affect, Normal Mood - Problem List Review Problem List Initiated/Reviewed/Updated: Yes - My Orders Last 24 Hours: My Active Orders 12/07/18 09:58 Patient Status [ADT] Routine 12/07/18 14:00 hydroCHLOROthiazide 12.5 mg PO BIDDIURETIC 12/07/18 21:00 Benzonatate [Tessalon Perles] 100 mg PO BID 12/08/18 08:06 CRP [C-REACTIVE PROTEIN] [CHEM] Urgent 12/08/18 10:30 VANCOMYCIN TROUGH [CHEM] Timed 12/09/18 05:11 BMP [BASIC METABOLIC PANEL,BMP] [CHEM] AM CBC WITH AUTO DIFF [HEME] AM CRP [C-REACTIVE PROTEIN] [CHEM] AM 12/10/18 05:11 CBC WITH AUTO DIFF [HEME] AM CRP [C-REACTIVE PROTEIN] [CHEM] AM 12/11/18 05:11 CBC WITH AUTO DIFF [HEME] AM CRP [C-REACTIVE PROTEIN] [CHEM] AM - Plan Plan:: Impression/Plan: Acute: Bilateral PNA Improving Hypoxia - CXR report reads patchy areas of increased density within both sides of the chest - Ordered Sputum Cx ordered - RVP and Strep pneumonia Ag - negative - Scheduled Decongestant and Expectorant; added Tessalon Perles 100 mg po BID - IV Azithromycin and Rocephin -> stop - Continue IV zosyn and vancomycin on 12/06/18 - Encouraged to use IS/FV as directed - CXR repeat 12/05/17: Worsening parenchymal change within both lungs - CXR repeat today: essentially the same - She is now more compliant with our treatment plan - O2 now down to 3L; Continue RT to assess and treat - Scheduled xopenex and ipratropium - switched from albuterol to xopenex due to tachycardia - WBC has been steady at 12-13, CRP starting to improve Influenza B positive, Hx of vaccine - Continue Tamiflu - RVP negative for influenza but screening positive - service 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 Hyperglycemia with DM2, improved - BS in the 200-300s; improved - Continue home dose insulin - Accu-check AC/HS and Medium dose ISS - She has been compliant with ISS B/L Pleural Effusion - R>>L - Small-Moderate per chest CTA - Invasive procedure is not indicated at this time - Continue with medical management Hypokalemia and Hypomagnesemia - Mg 1.7; pending mg level - K 2.7 ->3.8-->3.7-->3.2 --> 3.1 --> 3.5 - 2/2 inadequate intake and diuresis - Pharmacy to monitor and replete Generalized Weakness, Improved - 2/2 CAP, Bilateral Pleural Effusion and Influenza Infection - Stressed the importance of medical compliance Resolved: S/p Dehydration - No ARF; she was at baseline S/P Hypomagnesemia - 2/2 inadequate intake - Replete and monitor S/p A-fib with RVR, Resolved in ICU - A-fib with HR in 120-140s - Onset while sleeping - Some runs of v-tac - Cardizem IVP given with excellent response - Upgrade to ICU - Start xarelto for stroke prophylaxis - pharmacy to dose - Troponin/CKMB: Negative - D-Dimer: 1.52 - CTA ordered - Echo completed pending report - CXR no change from previous study S/p Elevated D-Dimer - D-dimer 1.52 - CTA showed no PE - 250mL fluid bolus before and after scan Chronic: TIA/CVA CKD HF HTN HLD Depression Plan: She remains clinically stable Routine AM Labs Droplet precautions Titrate to come off supplemental O2 RT consult for pulmonary toilet PT/OT treatment for deconditioning if services is available DVT/PE prophylaxis: Discontinue SCDs and continue xarelto 15 mg po daily SW/CM for d/c planning Ambulate as tolerated Code status: DNR; PCP: Dr. Winchester Possible discharge in 1-2 days. Updated daughter about mom's morning lab results , treatment and discharge care plan.
[2018-12-08] MEDS: Piperacillin/Tazobactam 4.5 GM in Sodium Chloride 0.9% 100 ML IV SCH ×2 (08:49→15:59)
[2018-12-08] MEDS: Saccharomyces Boulardii (Probiotic) 250 MG Cap PO SCH ×2 (08:50→20:19)
[2018-12-08] MEDS: Gabapentin 300 MG Cap PO SCH ×3 (08:50→20:21)
[2018-12-08] MEDS: Aspirin 81 MG Tab.EC PO SCH (08:51)
[2018-12-08] MEDS: Metoprolol Tartrate 25 MG Tab PO SCH ×2 (08:51→20:19)
[2018-12-08] MEDS: Clopidogrel 75 MG Tab PO SCH (08:51)
[2018-12-08] MEDS: Benzonatate 100 MG Cap PO SCH ×2 (08:51→20:21)
[2018-12-08] MEDS: Rivaroxaban 10 MG Tab PO SCH (08:52)
[2018-12-08] MEDS: Insulin Glarg,Human.Rec.Analog 100 UNIT/ML ML SUBCUT SCH (08:52)
[2018-12-08] MEDS: Furosemide 40 MG Tab PO SCH ×2 (08:52→09:03)
[2018-12-08] MEDS ORDERED: Potassium Chloride 20 MEQ Tab.ER PO ONE (09:30)
[2018-12-09] MEDS: Piperacillin/Tazobactam 4.5 GM in Sodium Chloride 0.9% 100 ML IV SCH ×2 (00:20→07:39)
[2018-12-09] MEDS: guaiFENesin/Dextromethorphan 100-10 MG/5 ML Soln 5 ML Cup PO SCH ×3 (06:20→21:21)
[2018-12-09] MEDS: Hydrochlorothiazide 12.5 MG Cap PO SCH ×2 (06:25→15:51)
[2018-12-09] MEDS: Insulin Lispro 100 Unit/ML 3 ML KwikPen SUBCUT SCH ×4 (06:28→21:24)
[2018-12-09] MEDS: Levalbuterol HCl 1.25 MG/0.5 ML Neb NEB SCH ×3 (06:45→15:36)
[2018-12-09] MEDS: Ipratropium 0.02% 0.5 MG/2.5 ML Neb Soln NEB SCH ×4 (06:45→20:33)
[2018-12-09] MEDS: Rivaroxaban 10 MG Tab PO SCH (09:06)
[2018-12-09] MEDS: Furosemide 40 MG Tab PO SCH (09:06)
[2018-12-09] MEDS: Clopidogrel 75 MG Tab PO SCH (09:07)
[2018-12-09] MEDS: Gabapentin 300 MG Cap PO SCH ×3 (09:07→21:23)
[2018-12-09] MEDS: Metoprolol Tartrate 25 MG Tab PO SCH ×2 (09:07→21:22)
[2018-12-09] MEDS: Aspirin 81 MG Tab.EC PO SCH (09:07)
[2018-12-09] MEDS: Saccharomyces Boulardii (Probiotic) 250 MG Cap PO SCH ×2 (09:07→21:22)
[2018-12-09] MEDS: Benzonatate 100 MG Cap PO SCH ×2 (09:08→21:23)
[2018-12-09] MEDS: Insulin Glarg,Human.Rec.Analog 100 UNIT/ML ML SUBCUT SCH (09:11)
--- NOTE | 2018-12-09 10:45 | PCM.PN ---
- General Info Date of Service: 12/09/18 Admission Dx/Problem (Free Text): Admission Diagnosis/Problem Admission Diagnosis/Problem Pneumonia Subjective Update: Follow Up Functional Status: Reports: Pain Controlled, Tolerating Diet, Ambulating, Urinating - Review of Systems General: Reports: Weakness. Denies: Fever, Chills HEENT: Reports: No Symptoms Pulmonary: Reports: Shortness of Breath, Cough. Denies: Pleuritic Chest Pain, Sputum, Hemoptysis, Wheezing Cardiovascular: Denies: Chest Pain, Palpitations, Dyspnea on Exertion, Edema, Lightheadedness Gastrointestinal: Denies: Abdominal Pain, Nausea, Vomiting Genitourinary: Reports: No Symptoms Musculoskeletal: Reports: No Symptoms Skin: Denies: Cyanosis, Pallor, Diaphoresis Neurological: Reports: Difficulty Walking, Weakness, Gait Disturbance. Denies: Confusion Psychiatric: Denies: Depression, Anxiety, Agitation, Hallucinations - Patient Data Vitals - Most Recent: Last Vital Signs Temp 37.1 C 12/09/18 08:01 Pulse 99 12/09/18 09:07 Resp 20 12/09/18 08:01 BP 134/49 L 12/09/18 09:07 Pulse Ox 91 L 12/09/18 10:15 Weight - Most Recent: 71.758 kg I&O - Last 24 Hours: Intake & Output 12/08/18 12/09/18 12/09/18 22:59 06:59 14:59 Intake Total 980 710 Output Total 250 150 Balance 730 560 Lab Results Last 24 Hours: Laboratory Results - last 24 hr 12/08/18 12/08/18 12/08/18 Range/Units 10:38 11:39 18:03 WBC (3.98-10.04) K/mm3 RBC (3.98-5.22) M/mm3 Hgb (11.2-15.7) gm/L Hct (34.1-44.9) % MCV (79.4-94.8) fl MCH (25.6-32.2) pg MCHC (32.2-35.5) g/dl RDW Std Deviation (36.4-46.3) fL Plt Count (182-369) K/mm3 MPV (9.4-12.3) fl Neut % (Auto) (34.0-71.1) % Lymph % (Auto) (19.3-51.7) % [place] % (Auto) (4.7-12.5) % Eos % (Auto) (0.7-5.8) Baso % (Auto) (0.1-1.2) % Neut # (Auto) (1.56-6.13) K/mm3 Lymph # (Auto) (1.18-3.74) K/mm3 [place]ountain # (Auto) (0.24-0.36) K/mm3 Eos # (Auto) (0.04-0.36) K/mm3 Baso # (Auto) (0.01-0.08) K/mm3 Sodium (136-145) mEq/L Potassium (3.5-5.1) mEq/L Chloride (98-107) mEq/L Carbon Dioxide (21-32) mEq/L Anion Gap (5-15) BUN (7-18) mg/dL Creatinine (0.55-1.02) mg/dL Est Cr Clr Drug Dosing mL/min Estimated GFR (MDRD) (>60) mL/min BUN/Creatinine Ratio (14-18) Glucose (83-115) mg/dL POC Glucose 338 H 163 H (83-110) mg/dL Calcium (8.5-10.1) mg/dL C-Reactive Protein (<1.0) mg/dL Vancomycin Trough 8.6 L (10.0-20.0) 12/08/18 12/09/18 12/09/18 Range/Units 21:23 05:21 05:21 WBC 13.82 H (3.98-10.04) K/mm3 RBC 3.49 L (3.98-5.22) M/mm3 Hgb 9.9 L (11.2-15.7) gm/L Hct 31.4 L (34.1-44.9) % MCV 90.0 (79.4-94.8) fl MCH 28.4 (25.6-32.2) pg MCHC 31.5 L (32.2-35.5) g/dl RDW Std Deviation 49.9 H (36.4-46.3) fL Plt Count 299 (182-369) K/mm3 MPV 9.8 (9.4-12.3) fl Neut % (Auto) 76.7 H (34.0-71.1) % Lymph % (Auto) 13.5 L (19.3-51.7) % [place] % (Auto) 6.6 (4.7-12.5) % Eos % (Auto) 2.5 (0.7-5.8) Baso % (Auto) 0.1 (0.1-1.2) % Neut # (Auto) 10.61 H (1.56-6.13) K/mm3 Lymph # (Auto) 1.86 (1.18-3.74) K/mm3 Fountain # (Auto) 0.91 H (0.24-0.36) K/mm3 Eos # (Auto) 0.34 (0.04-0.36) K/mm3 Baso # (Auto) 0.02 (0.01-0.08) K/mm3 Sodium 139 (136-145) mEq/L Potassium 3.4 L (3.5-5.1) mEq/L Chloride 104 (98-107) mEq/L Carbon Dioxide 26 (21-32) mEq/L Anion Gap 12.4 (5-15) BUN 8 (7-18) mg/dL Creatinine 1.1 H (0.55-1.02) mg/dL Est Cr Clr Drug Dosing 25.88 mL/min Estimated GFR (MDRD) 47 (>60) mL/min BUN/Creatinine Ratio 7.3 L (14-18) Glucose 81 L (83-115) mg/dL POC Glucose 181 H (83-110) mg/dL Calcium 8.5 (8.5-10.1) mg/dL C-Reactive Protein 27.9 H* (<1.0) mg/dL Vancomycin Trough (10.0-20.0) 12/09/18 Range/Units 06:26 WBC (3.98-10.04) K/mm3 RBC (3.98-5.22) M/mm3 Hgb (11.2-15.7) gm/L Hct (34.1-44.9) % MCV (79.4-94.8) fl MCH (25.6-32.2) pg MCHC (32.2-35.5) g/dl RDW Std Deviation (36.4-46.3) fL Plt Count (182-369) K/mm3 MPV (9.4-12.3) fl Neut % (Auto) (34.0-71.1) % Lymph % (Auto) (19.3-51.7) % [place] % (Auto) (4.7-12.5) % Eos % (Auto) (0.7-5.8) Baso % (Auto) (0.1-1.2) % Neut # (Auto) (1.56-6.13) K/mm3 Lymph # (Auto) (1.18-3.74) K/mm3 [place] # (Auto) (0.24-0.36) K/mm3 Eos # (Auto) (0.04-0.36) K/mm3 Baso # (Auto) (0.01-0.08) K/mm3 Sodium (136-145) mEq/L Potassium (3.5-5.1) mEq/L Chloride (98-107) mEq/L Carbon Dioxide (21-32) mEq/L Anion Gap (5-15) BUN (7-18) mg/dL Creatinine (0.55-1.02) mg/dL Est Cr Clr Drug Dosing mL/min Estimated GFR (MDRD) (>60) mL/min BUN/Creatinine Ratio (14-18) Glucose (83-115) mg/dL POC Glucose 93 (83-110) mg/dL Calcium (8.5-10.1) mg/dL C-Reactive Protein (<1.0) mg/dL Vancomycin Trough (10.0-20.0) Octavio Results Last 24 Hours: Microbiology 12/03/18 08:00 Aerobic Blood Culture - Preliminary Blood - Venous - Lab Draw NO GROWTH AFTER 6 DAYS Anaerobic Blood Culture - Preliminary NO GROWTH AFTER 6 DAYS 12/03/18 07:52 Aerobic Blood Culture - Preliminary Blood - Venous NO GROWTH AFTER 6 DAYS Anaerobic Blood Culture - Preliminary NO GROWTH AFTER 6 DAYS Med Orders - Current: Current Medications Acetaminophen (Tylenol) 650 mg PO Q6H PRN PRN Reason: Pain/Fever Last Admin: 12/06/18 19:50 Dose: 650 mg Albuterol (Proventil Neb Soln) 2.5 mg NEB Q4H PRN PRN Reason: Shortness of Breath Last Admin: 12/07/18 12:33 Dose: 2.5 mg Aspirin (Halfprin) 81 mg PO DAILY [facility] Last Admin: 12/09/18 09:07 Dose: 81 mg Benzonatate (Tessalon Perles) 100 mg PO BID [facility] Last Admin: 12/09/18 09:08 Dose: 100 mg Calcium Carbonate/Glycine (Tums) 500 mg PO Q4H PRN PRN Reason: Heartburn Clopidogrel Bisulfate (Plavix) 75 mg PO DAILY [facility] Last Admin: 12/09/18 09:07 Dose: 75 mg Dextrose/Water (Dextrose 50% In Water) 50 ml IVPUSH ASDIRECTED PRN PRN Reason: Hypoglycemia Furosemide (Lasix) 40 mg PO DAILY [facility] Last Admin: 12/09/18 09:06 Dose: 40 mg Gabapentin (Neurontin) 300 mg PO TID [facility] Last Admin: 12/09/18 09:07 Dose: 300 mg Guaifenesin/Phenylephrine HCl (Robitussin Dm) 5 ml PO TID@0700,1400,2100 [facility] Last Admin: 12/09/18 06:20 Dose: 5 ml Hydralazine HCl (Apresoline) 10 mg IVPUSH Q4H PRN PRN Reason: Hypertension Last Admin: 12/05/18 10:58 Dose: 10 mg Diltiazem HCl 125 mg/ Sodium (Chloride) 125 mls @ 5 mls/hr IV TITRATE [facility]; Protocol Piperacillin Sod/Tazobactam (Sod 4.5 gm/ Sodium Chloride) 100 mls @ 25 mls/hr IV Q8H [facility] Last Admin: 12/09/18 07:39 Dose: 25 mls/hr Vancomycin HCl 1 gm/ Sodium (Chloride) 250 mls @ 250 mls/hr IV Q12H [facility] Last Admin: 12/08/18 23:17 Dose: 250 mls/hr Insulin Glargine (Lantus) 30 unit SUBCUT DAILY [facility] Last Admin: 12/09/18 09:11 Dose: 30 unit Insulin Human Lispro (Humalog) 0 unit SUBCUT QIDACANDBED [facility]; Protocol Last Admin: 12/09/18 06:28 Dose: Not Given Ipratropium [place] (Atrovent) 0.5 mg NEB QIDRT [facility] Last Admin: 12/09/18 09:56 Dose: 0.5 mg Levalbuterol HCl (Xopenex) 1.25 mg NEB QIDRT [facility] Last Admin: 12/09/18 09:56 Dose: 1.25 mg Loratadine (Claritin) 10 mg PO DAILY PRN PRN Reason: Allergies Magnesium Sulfate (Pharmacy To Dose - Magnesium Replacement) 0 dose .XX ASDIRECTED PRN PRN Reason: RX TO WATCH MAG Metoprolol Tartrate (Lopressor) 5 mg IVPUSH Q4H PRN PRN Reason: Tachycardia Metoprolol Tartrate (Lopressor) 25 mg PO Q12H [facility] Last Admin: 12/09/18 09:07 Dose: 25 mg Ondansetron HCl (Zofran) 4 mg IVPUSH Q8H PRN PRN Reason: Nausea/Vomiting Potassium Chloride (Pharmacy To Dose - Potassium Replacement) 0 dose .XX ASDIRECTED PRN PRN Reason: RX TO WATCH K Rivaroxaban (Xarelto) 15 mg PO DAILY [facility] Last Admin: 12/09/18 09:06 Dose: 15 mg Saccharomyces Boulardii (Florastor) 250 mg PO BID [facility] Last Admin: 12/09/18 09:07 Dose: 250 mg Senna/Docusate Sodium (Senna Plus) 1 tab PO DAILY PRN PRN Reason: Constipation Sodium Chloride (Saline Flush) 10 ml FLUSH ASDIRECTED PRN PRN Reason: Keep Vein Open Last Admin: 12/03/18 08:15 Dose: 10 ml Sodium Chloride (Saline Flush) 10 ml FLUSH ONETIME PRN PRN Reason: IV FLUSH Last Admin: 12/06/18 14:08 Dose: 10 ml Vancomycin HCl (Pharmacy To Dose - Vancomycin) 0 dose .XX DAILY PRN PRN Reason: RX TO DOSE VANCO Discontinued Medications Albuterol/Ipratropium (Duoneb 3.0-0.5 Mg/3 Ml) 3 ml NEB QID [facility] Last Admin: 12/03/18 21:30 Dose: 3 ml Albuterol/Ipratropium (Duoneb 3.0-0.5 Mg/3 Ml) 3 ml NEB QIDRT [facility] Last Admin: 12/05/18 09:14 Dose: 3 ml Diltiazem HCl (Cardizem) 10 mg IVPUSH ONETIME ONE Stop: 12/06/18 07:21 Last Admin: 12/06/18 07:42 Dose: 10 mg Diltiazem HCl (Cardizem) 5 mg IVPUSH ONETIME ONE Stop: 12/06/18 09:41 Last Admin: 12/06/18 09:53 Dose: 5 mg Heparin Sodium (Porcine) (Heparin Sodium) 5,000 units SUBCUT Q8H [facility] Last Admin: 12/05/18 05:57 Dose: Not Given Hydrochlorothiazide (Hydrochlorothiazide) 12.5 mg PO BIDDIURETIC [facility] Stop: 12/09/18 06:01 Last Admin: 12/09/18 06:25 Dose: 12.5 mg Ceftriaxone Sodium 2 gm/ (Sodium Chloride) 100 mls @ 200 mls/hr IV ONETIME ONE Stop: 12/03/18 08:33 Last Admin: 12/03/18 08:37 Dose: 200 mls/hr Sodium Chloride (Normal Saline) 1,000 mls @ 1,000 mls/hr IV .BOLUS [facility] Last Admin: 12/03/18 08:15 Dose: 1,000 mls/hr Azithromycin 500 mg/ Sodium (Chloride) 250 mls @ 250 mls/hr IV Q24H [facility] Last Admin: 12/05/18 12:06 Dose: 250 mls/hr Ceftriaxone Sodium 2 gm/ (Sodium Chloride) 100 mls @ 200 mls/hr IV Q24H [facility] Last Admin: 12/05/18 08:46 Dose: 200 mls/hr Potassium Chloride/Sodium Chloride (Normal Saline With 20 Meq Kcl) 1,000 mls @ 100 mls/hr IV ASDIRECTED [facility] Last Admin: 12/04/18 12:59 Dose: 100 mls/hr Potassium Chloride 10 meq/ (Premix) 100 mls @ 100 mls/hr IV Q1H [facility] Stop: 12/03/18 19:29 Last Admin: 12/03/18 21:50 Dose: 100 mls/hr Potassium Chloride 10 meq/ (Premix) 100 mls @ 100 mls/hr IV Q1H [facility] Stop: 12/03/18 22:59 Last Admin: 12/03/18 22:02 Dose: Not Given Piperacillin Sod/Tazobactam (Sod 4.5 gm/ Sodium Chloride) 100 mls @ 200 mls/hr IV ONETIME ONE Stop: 12/06/18 08:29 Last Admin: 12/06/18 09:15 Dose: 200 mls/hr Vancomycin HCl 1 gm/ Sodium (Chloride) 250 mls @ 250 mls/hr IV Q24H [facility] Last Admin: 12/08/18 12:19 Dose: Not Given Potassium Chloride 10 meq/ (Premix) 100 mls @ 100 mls/hr IV Q1H [facility] Stop: 12/06/18 14:59 Last Admin: 12/06/18 17:41 Dose: 100 mls/hr Sodium Chloride (Normal Saline) 500 mls @ 999 mls/hr IV .BOLUS ONE Stop: 12/06/18 11:29 Last Admin: 12/06/18 14:30 Dose: 999 mls/hr Sodium Chloride (Normal Saline) 100 mls @ 75 mls/hr IV ASDIRECTED [facility] Last Admin: 12/06/18 14:09 Dose: 75 mls/hr Sodium Chloride (Normal Saline) 1,000 mls @ 50 mls/hr IV ASDIRECTED [facility] Last Admin: 12/07/18 03:52 Dose: 50 mls/hr Potassium Chloride 10 meq/ (Premix) 100 mls @ 100 mls/hr IV Q1H [facility] Stop: 12/07/18 14:29 Last Admin: 12/07/18 14:12 Dose: 100 mls/hr Magnesium Sulfate 2 gm/ Premix 50 mls @ 25 mls/hr IV ONETIME ONE Stop: 12/07/18 10:29 Last Admin: 12/07/18 08:36 Dose: 25 mls/hr Iopamidol (Isovue-370 (76%)) 100 ml IVPUSH ONETIME ONE Stop: 12/06/18 11:38 Last Admin: 12/06/18 14:08 Dose: 100 ml Magnesium Oxide (Magnesium Oxide) 400 mg PO ONETIME ONE Stop: 12/04/18 20:31 Last Admin: 12/04/18 21:09 Dose: Not Given Metoprolol Tartrate (Lopressor) 25 mg PO Q12H [facility] Last Admin: 12/06/18 12:32 Dose: 25 mg Oseltamivir Phosphate (Tamiflu) 75 mg PO ONETIME ONE Stop: 12/03/18 09:07 Last Admin: 12/03/18 09:15 Dose: 75 mg Oseltamivir Phosphate (Tamiflu) 30 mg PO DAILY [facility] Stop: 12/07/18 09:01 Last Admin: 12/07/18 08:40 Dose: 30 mg Potassium Chloride (Klor-Con M20) 40 meq PO ONETIME ONE Stop: 01/08/19 09:18 Last Admin: 12/03/18 09:26 Dose: 40 meq Potassium Chloride (Klor-Con M20) 40 meq PO TID [facility] Stop: 12/03/18 21:01 Last Admin: 12/03/18 13:26 Dose: 40 meq Potassium Chloride (Potassium Chloride Solution) 40 meq PO TID [facility] Stop: 12/04/18 09:01 Last Admin: 12/03/18 14:41 Dose: Not Given Potassium Chloride (Klor-Con M20) 40 meq PO Q4H [facility] Stop: 12/05/18 00:31 Last Admin: 12/05/18 00:26 Dose: Not Given Potassium Chloride (Klor-Con M20) 40 meq PO ONETIME ONE Stop: 12/06/18 09:16 Last Admin: 12/06/18 09:29 Dose: Not Given Potassium Chloride (Klor-Con M20) 40 meq PO ONETIME ONE Stop: 12/08/18 09:31 Last Admin: 12/08/18 10:44 Dose: Not Given - Exam Quality Assessment: Supplemental Oxygen General: Alert, Oriented, Cooperative, No Acute Distress HEENT: Pupils Equal, Pupils Reactive, EOMI, Mucous Membr. Moist/[place] Neck: Supple, No JVD, No Thyromegaly Lungs: Normal Respiratory Effort, Decreased Breath Sounds, Crackles, Rhonchi Cardiovascular: Regular Rate, Regular Rhythm GI/Abdominal Exam: Normal Bowel Sounds, Soft, Non-Tender, No Organomegaly, No Distention, No Abnormal Bruit, No Mass (Female) Exam: Deferred Back Exam: Normal Inspection, Decreased Range of Motion Extremities: Normal Inspection, Normal Range of Motion, Non-Tender, Normal Capillary Refill Skin: Warm, Dry, Intact Neurological: No New Focal Deficit. No: Normal Gait Psy/Mental Status: Alert, Normal Affect, Normal Mood - Problem List Review Problem List Initiated/Reviewed/Updated: Yes - My Orders Last 24 Hours: My Active Orders 12/08/18 12:15 Vancomycin [Vancocin] 1 gm Sodium Chloride 0.9% [Normal Saline] 250 ml IV Q12H 12/09/18 09:28 Chest 1V Frontal [CR] Routine 12/09/18 23:30 VANCOMYCIN TROUGH [CHEM] Timed 12/10/18 05:11 CBC WITH AUTO DIFF [HEME] AM CRP [C-REACTIVE PROTEIN] [CHEM] AM 12/11/18 05:11 CBC WITH AUTO DIFF [HEME] AM CRP [C-REACTIVE PROTEIN] [CHEM] AM - Plan Plan:: Impression/Plan: Acute: Bilateral PNA Improving Hypoxia - CXR report reads patchy areas of increased density within both sides of the chest - Ordered Sputum Cx ordered - RVP and Strep pneumonia Ag - negative - Continue scheduled Decongestant, Expectorant and Tessalon Perles 100 mg po BID - IV Azithromycin and Rocephin -> stop - Continue IV zosyn and vancomycin on 12/06/18; d/c it and start oral Levaquin 750 mg po Daily - Encouraged to use IS/FV as directed - CXR repeat 12/05/17: Worsening parenchymal change within both lungs - CXR repeat today 12/09/2018: essentially the same - She is now more compliant with our treatment plan - O2 was 1L yesterday but went up to 3L due to hypoxemia; Continue RT to assess and treat - Scheduled xopenex and ipratropium - switched from albuterol to xopenex due to tachycardia - WBC has been steady at 12-13, CRP worse today Influenza B positive, Hx of vaccine - Continue Tamiflu - RVP negative for influenza but screening positive - mattress 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 Hyperglycemia with DM2, Stable - BS in the 200-300s; improved - Continue home dose insulin - Accu-check AC/HS and Medium dose ISS - She has been compliant with ISS B/L Pleural Effusion - R>>L - Small-Moderate per chest CTA - Invasive procedure is not indicated at this time - Continue with medical management - Repeat CXR shows no changes from previous study Hypokalemia and Hypomagnesemia - Mg 1.7; pending mg level - K 2.7 ->3.8-->3.7-->3.2 --> 3.1 --> 3.5 --> 3.4 - 2/2 inadequate intake and diuresis - Pharmacy to monitor and replete Generalized Weakness, Improved - 2/2 CAP, Bilateral Pleural Effusion and Influenza Infection - Stressed the importance of medical compliance Hx/o Medical Non-compliance - She refused her oral K pill this AM Resolved: S/p Dehydration - No ARF; she was at baseline S/P Hypomagnesemia - 2/2 inadequate intake - Replete and monitor S/p A-fib with RVR, Resolved in ICU - A-fib with HR in 120-140s - Onset while sleeping - Some runs of v-tac - Cardizem IVP given with excellent response - Upgrade to ICU - Start xarelto for stroke prophylaxis - pharmacy to dose - Troponin/CKMB: Negative - D-Dimer: 1.52 - CTA ordered - Echo completed pending report - CXR no change from previous study S/p Elevated D-Dimer - D-dimer 1.52 - CTA showed no PE - 250mL fluid bolus before and after scan Chronic: TIA/CVA CKD HF HTN HLD Depression Plan: She remains clinically stable Routine AM Labs Droplet precautions Titrate to come off supplemental O2 RT consult for pulmonary toilet PT/OT treatment for deconditioning if services is available DVT/PE prophylaxis: Discontinue SCDs and continue xarelto 15 mg po daily SW/CM for d/c planning Ambulate as tolerated Encouraged patient to use IS as directed Code status: DNR; PCP: Dr. Winchester Possible discharge in 1-2 days. Updated patient about her morning lab results, chest x-ray, treatment and discharge care plan.
--- NOTE | 2018-12-09 11:40 | CR ---
Chest: Portable view of the chest was obtained. Comparison: Prior chest x-ray of 12/06/18. Stable parenchymal densities are seen throughout both lungs. Heart is slightly enlarged. Tortuous thoracic aorta is noted. Scoliosis is noted within the spine. Surgical clips are seen from prior cholecystectomy. Impression: 1. Findings as noted above. No significant change is seen from previous chest x-ray. Diagnostic code #3
[2018-12-09] MEDS ORDERED: Levofloxacin 750 MG Tab PO SCH (12:00)
[2018-12-09] MEDS ORDERED: Bumetanide 1 MG/4 ML MDV IVPUSH ONE (18:00)
[2018-12-09] MEDS: Levalbuterol HCl 1.25 MG/3 ML Neb INH SCH (20:33)
[2018-12-09] MEDS: Potassium Chloride 20 MEQ Tab.ER PO SCH ×2 (21:21→23:02)
[2018-12-10] MEDS: Levalbuterol HCl 1.25 MG/3 ML Neb INH SCH ×2 (05:39→10:16)
[2018-12-10] MEDS: Ipratropium 0.02% 0.5 MG/2.5 ML Neb Soln NEB SCH ×2 (05:39→10:16)
[2018-12-10] MEDS ORDERED: Bumetanide 1 MG/4 ML MDV IVPUSH SCH (06:00)
[2018-12-10] MEDS: guaiFENesin/Dextromethorphan 100-10 MG/5 ML Soln 5 ML Cup PO SCH (06:15)
[2018-12-10] MEDS: Hydrochlorothiazide 12.5 MG Cap PO SCH (06:25)
[2018-12-10 08:06] VITALS: BP 137/54
[2018-12-10] MEDS: Aspirin 81 MG Tab.EC PO SCH (08:32)
[2018-12-10] MEDS: Rivaroxaban 10 MG Tab PO SCH (08:32)
[2018-12-10] MEDS: Metoprolol Tartrate 25 MG Tab PO SCH (08:34)
[2018-12-10] MEDS: Gabapentin 300 MG Cap PO SCH (08:34)
[2018-12-10] MEDS: Clopidogrel 75 MG Tab PO SCH (08:38)
[2018-12-10] MEDS: Benzonatate 100 MG Cap PO SCH (08:38)
[2018-12-10] MEDS: Saccharomyces Boulardii (Probiotic) 250 MG Cap PO SCH (08:38)
[2018-12-10] MEDS: Insulin Lispro 100 Unit/ML 3 ML KwikPen SUBCUT SCH ×2 (08:39→11:03)
[2018-12-10] MEDS: Insulin Glarg,Human.Rec.Analog 100 UNIT/ML ML SUBCUT SCH (08:39)
--- NOTE | 2018-12-10 09:46 | CR ---
Chest: Frontal view of the chest is obtained. Comparison: Prior chest x-ray of 12/09/18. Continuing increased density within both sides of the chest is seen. No significant change from previous study is seen. Heart size, mediastinum and bony structures are also unchanged. Impression: 1. Stable chest x-ray. No significant change from previous chest x-ray is seen. Diagnostic code #3
--- NOTE | 2018-12-10 11:02 | PCM.DCSUM1 ---
Discharge Summary - Hospital Course Free Text/Narrative:: Patient was admitted for medical management of influenza infection but she was also diagnosed with community acquired pneumonia along with bilateral pleural effusion. All her basic work up showed no organismal growth on blood and sputum cultures. However her influenza screening confirmed influenza B. She received appropriate antiviral agent along with intravenous antibiotic treatment. Her hospital course was mildly complicated by new onset of atrial fibrillation but was quickly resolved with rate control agent and she was put on xarelto due to her high [id number] score of 6. Her hospital stay was somewhat prolonged due to her non-compliance with medications and routine activities. Her family was made aware about it and they came in to help us out encouraged and re- assured her. Overall, she improved clinically and she was stable upon discharge. She was advised to follow discharge instructions and we stressed the importance of medical compliance. She further advised to follow up with her PCP after discharge. The patient expressed understanding and in agreement with plans as discussed above. All questions were answered. Brief History: 88 year old diabetic resident of [facility] presented febrile with flu like symptoms. She has had the Flu vaccine but unfortunately has tested positive for Influenza B. The patient also has bilateral infiltrates; Documented elevated temperature was 102.0F taken in the ambulance. She will be admitted to [facility] with telemetry. Diagnosis: Stroke: No - Discharge Data Discharge Date: 12/10/18 Discharge Disposition: Home, Self-Care 01 Condition: Good - Discharge Diagnosis/Problem(s) (1) Pneumonia SNOMED Code(s): 569480521 ICD Code: J18.9 - PNEUMONIA, UNSPECIFIED ORGANISM Status: Acute Priority : High Qualifiers: Pneumonia type: due to unspecified organism Laterality: left Lung location: unspecified part of lung Qualified Code(s): J18.9 - Pneumonia, unspecified organism (2) Influenza B SNOMED Code(s): 86646667 ICD Code: J10.1 - FLU DUE TO OTH IDENT INFLUENZA VIRUS W OTH RESP MANIFEST Status: Acute Priority: High (3) Atrial fibrillation with RVR SNOMED Code(s): 802560691711092 ICD Code: I48.91 - UNSPECIFIED ATRIAL FIBRILLATION Status: Resolved Priority: High (4) Pleural effusion SNOMED Code(s): 27345820 ICD Code: J90 - PLEURAL EFFUSION, NOT ELSEWHERE CLASSIFIED Status: Acute Problem Details: - B/L R>>L (5) Medical non-compliance SNOMED Code(s): 664137474 ICD Code: Z91.19 - PATIENT'S NONCOMPLIANCE W OTH MEDICAL TREATMENT AND REGIMEN Status: Acute (6) Generalized weakness SNOMED Code(s): 27569968 ICD Code: R53.1 - WEAKNESS Status: Resolved Priority: High (7) Hypokalemia SNOMED Code(s): 14660800 ICD Code: E87.6 - HYPOKALEMIA Status: Acute (8) Dehydration SNOMED Code(s): 82365864 ICD Code: E86.0 - DEHYDRATION Status: Resolved (9) Elevated d-dimer SNOMED Code(s): 267968600 ICD Code: R79.89 - OTHER SPECIFIED ABNORMAL FINDINGS OF BLOOD CHEMISTRY Status: Inactive (10) Hypomagnesemia SNOMED Code(s): 186520421 ICD Code: E83.42 - HYPOMAGNESEMIA Status: Acute (11) DM2 (diabetes mellitus, type 2) SNOMED Code(s): 80333453 ICD Code: E11.9 - TYPE 2 DIABETES MELLITUS WITHOUT COMPLICATIONS Status: Chronic Qualifiers: Diabetes mellitus correction insulin use: unspecified correction insulin use status Diabetes mellitus complication status: with unspecified complications Qualified Code(s): E11.8 - Type 2 diabetes mellitus with unspecified complications - Patient Summary/Data Operative Procedure(s) Performed: None Complications: None Consults: Consultations 12/06/18 13:46 Consult to Physical Therapy [PT Evaluation and Treatment] [CONS] Routine OT Evaluation and Treatment [CONS] Routine Labs Pending at D/C: None Recommended Follow-up Testing/Procedures: chest x-ray Planned Operative Procedure(s) after DC: None - Patient Instructions Diet: Heart Healthy Diet, Usual Diet as Tolerated, Low Sodium, Fluid Restriction , Diabetic Diet Fluid Restriction: 2000 mL Activity: As Tolerated Driving: Do Not Drive Showering/Bathing: May Shower Notify Provider of: Fever, Increased Pain, Swelling and Redness, Nausea and/or Vomiting Other/Special Instructions: - Please take all new medications as directed. - Resume all home medications and continue routine home activities as tolerated. - Make sure use facial mask as needed to protect your self. - Use IS as directed. - Medical compliance is very important. - Call or follow up with your PCP after discharge. - Follow with your PCP in 1 week w/ repeat chest x- ray. - Come back or seek immediate care should your symptoms persist or get worse. - Discharge Plan *PRESCRIPTION DRUG MONITORING PROGRAM REVIEWED*: Not Applicable *COPY OF PRESCRIPTION DRUG MONITORING REPORT IN PATIENT [place]: Not Applicable Prescriptions/Med Rec: Dextromethorphan/guaiFENesin [Robitussin DM] 5 ml PO TID@0700,1400,2100 #15 cup Furosemide [Lasix] 40 mg PO ASDIRECTED #60 tablet Levofloxacin [Levaquin] 750 mg PO Q48H #3 tablet metOLazone [Metolazone] 2.5 mg PO ASDIRECTED #8 tablet Metoprolol Tartrate [Lopressor] 25 mg PO Q12H #60 tablet Rivaroxaban [Xarelto] 15 mg PO DAILY #30 tablet Saccharomyces Boulardii [Florastor] 250 mg PO Q48H #3 capsule Home Medications: Home Meds Aspirin [Halfprin] 81 mg PO DAILY 10/20/15 [History] Clopidogrel [Plavix] 75 mg PO DAILY 10/20/15 [History] Cyanocobalamin (Vitamin B12) [Vitamin B12] 1,000 mcg PO DAILY 10/20/15 [History] Gabapentin [Neurontin] 300 mg PO TID 10/20/15 [History] Insulin Aspart [Novolog Flexpen] 9 unit SQ QPM 10/20/15 [History] Insulin Aspart [Novolog Flexpen] 11 unit SQ QAM 10/20/15 [History] Insulin Detemir [Levemir Flextouch] 30 unit SQ DAILY 10/20/15 [History] Sennosides/Docusate Sodium [Senna-Docusate Sodium] 1 tab PO DAILY PRN 03/05/16 [ History] Acetaminophen 500 mg PO BEDTIME 07/12/16 [History] Acetaminophen [Tylenol Extra Strength] 1,000 mg PO Q6HR PRN 07/12/16 [History] Calcium Carbonate [Tums] 400 mg PO Q4H PRN 07/12/16 [History] Vitamin E 400 unit PO DAILY 07/12/16 [History] Loratadine [Claritin] 10 mg PO DAILY PRN 10/05/18 [History] Dextromethorphan/guaiFENesin [Robitussin DM] 5 ml PO TID@0700,1400,2100 #15 cup 12/10/18 [Rx] Furosemide [Lasix] 40 mg PO ASDIRECTED #60 tablet 12/10/18 [Rx] Levofloxacin [Levaquin] 750 mg PO Q48H #3 tablet 12/10/18 [Rx] Metoprolol Tartrate [Lopressor] 25 mg PO Q12H #60 tablet 12/10/18 [Rx] Rivaroxaban [Xarelto] 15 mg PO DAILY #30 tablet 12/10/18 [Rx] Saccharomyces Boulardii [Florastor] 250 mg PO Q48H #3 capsule 12/10/18 [Rx] metOLazone [Metolazone] 2.5 mg PO ASDIRECTED #8 tablet 12/10/18 [Rx] Patient Handouts: Influenza, Adult, [id number], Home Oxygen Use, Adult, Pleural Effusion, Community-Acquired Pneumonia, Adult, [id number] Referrals: Dudley Winchester MD [Primary Care Provider] - - Discharge Summary/Plan Comment DC Time >30 min.: No Discharge Summary/Plan Comment: Discharge to [facility] - General Info Date of Service: 12/10/18 Admission Dx/Problem (Free Text: Admission Diagnosis/Problem Admission Diagnosis/Problem Pneumonia Subjective Update: Follow Up Functional Status: Reports: Pain Controlled, Tolerating Diet, Ambulating, Urinating. Denies: New Symptoms - Review of Systems General: Reports: Night Sweats. Denies: Fever, Weakness, Fatigue, Malaise, Chills Pulmonary: Reports: Cough. Denies: Shortness of Breath Cardiovascular: Denies: Chest Pain, Dyspnea on Exertion, Lightheadedness Gastrointestinal: Denies: Abdominal Pain, Nausea, Vomiting Genitourinary: Reports: No Symptoms Musculoskeletal: Reports: No Symptoms Skin: Denies: Cyanosis, Pallor Neurological: Reports: Difficulty Walking, Gait Disturbance. Denies: Confusion , Weakness Psychiatric: Denies: Depression, Anxiety, Agitation, Hallucinations Systems Review Comment: No overnight or acute issues. She rested well. She feels good this AM and has no complaints. Again, she refused her diuretic this AM. - Patient Data Vitals - Most Recent: Last Vital Signs Temp 36.7 C 12/10/18 07:29 Pulse 89 12/10/18 08:34 Resp 20 12/10/18 07:29 BP 137/54 L 12/10/18 08:34 Pulse Ox 92 L 12/10/18 10:19 Weight - Most Recent: 66.877 kg I&O - Last 24 hours: Intake & Output 12/09/18 12/10/18 12/10/18 22:59 06:59 14:59 Intake Total 550 100 120 Output Total 540 400 Balance 10 -300 120 Lab Results - Last 24 hrs: Laboratory Results - last 24 hr 12/09/18 12/09/18 12/09/18 Range/Units 12:01 17:30 20:38 WBC (3.98-10.04) K/mm3 RBC (3.98-5.22) M/mm3 Hgb (11.2-15.7) gm/L Hct (34.1-44.9) % MCV (79.4-94.8) fl MCH (25.6-32.2) pg MCHC (32.2-35.5) g/dl RDW Std Deviation (36.4-46.3) fL Plt Count (182-369) K/mm3 MPV (9.4-12.3) fl Neut % (Auto) (34.0-71.1) % Lymph % (Auto) (19.3-51.7) % [place] % (Auto) (4.7-12.5) % Eos % (Auto) (0.7-5.8) Baso % (Auto) (0.1-1.2) % Neut # (Auto) (1.56-6.13) K/mm3 Lymph # (Auto) (1.18-3.74) K/mm3 [place] # (Auto) (0.24-0.36) K/mm3 Eos # (Auto) (0.04-0.36) K/mm3 Baso # (Auto) (0.01-0.08) K/mm3 Manual Slide Review Sodium (136-145) mEq/L Potassium (3.5-5.1) mEq/L Chloride (98-107) mEq/L Carbon Dioxide (21-32) mEq/L Anion Gap (5-15) BUN (7-18) mg/dL Creatinine (0.55-1.02) mg/dL Est Cr Clr Drug Dosing mL/min Estimated GFR (MDRD) (>60) mL/min BUN/Creatinine Ratio (14-18) Glucose (83-115) mg/dL POC Glucose 205 H 208 H 215 H (83-110) mg/dL Calcium (8.5-10.1) mg/dL C-Reactive Protein (<1.0) mg/dL NT-Pro-B Natriuret Pep (0-450) pg/mL 12/10/18 12/10/18 12/10/18 Range/Units 06:30 06:30 06:30 WBC 15.65 H (3.98-10.04) K/mm3 RBC 3.66 L (3.98-5.22) M/mm3 Hgb 10.6 L (11.2-15.7) gm/L Hct 32.8 L (34.1-44.9) % MCV 89.6 (79.4-94.8) fl MCH 29.0 (25.6-32.2) pg MCHC 32.3 (32.2-35.5) g/dl RDW Std Deviation 48.2 H (36.4-46.3) fL Plt Count 391 H (182-369) K/mm3 MPV 10.1 (9.4-12.3) fl Neut % (Auto) 72.5 H (34.0-71.1) % Lymph % (Auto) 17.6 L (19.3-51.7) % [place] % (Auto) 7.1 (4.7-12.5) % Eos % (Auto) 2.0 (0.7-5.8) Baso % (Auto) 0.1 (0.1-1.2) % Neut # (Auto) 11.35 H (1.56-6.13) K/mm3 Lymph # (Auto) 2.75 (1.18-3.74) K/mm3 [place] # (Auto) 1.11 H (0.24-0.36) K/mm3 Eos # (Auto) 0.31 (0.04-0.36) K/mm3 Baso # (Auto) 0.02 (0.01-0.08) K/mm3 Manual Slide Review Abnormal smear Sodium 137 (136-145) mEq/L Potassium 3.3 L (3.5-5.1) mEq/L Chloride 99 (98-107) mEq/L Carbon Dioxide 27 (21-32) mEq/L Anion Gap 14.3 (5-15) BUN 10 (7-18) mg/dL Creatinine 1.3 H (0.55-1.02) mg/dL Est Cr Clr Drug Dosing 21.90 mL/min Estimated GFR (MDRD) 39 (>60) mL/min BUN/Creatinine Ratio 7.7 L (14-18) Glucose 139 H (83-115) mg/dL POC Glucose (83-110) mg/dL Calcium 9.2 (8.5-10.1) mg/dL C-Reactive Protein 25.6 H* (<1.0) mg/dL NT-Pro-B Natriuret Pep 1232 H (0-450) pg/mL 12/10/18 Range/Units 06:35 WBC (3.98-10.04) K/mm3 RBC (3.98-5.22) M/mm3 Hgb (11.2-15.7) gm/L Hct (34.1-44.9) % MCV (79.4-94.8) fl MCH (25.6-32.2) pg MCHC (32.2-35.5) g/dl RDW Std Deviation (36.4-46.3) fL Plt Count (182-369) K/mm3 MPV (9.4-12.3) fl Neut % (Auto) (34.0-71.1) % Lymph % (Auto) (19.3-51.7) % [place] % (Auto) (4.7-12.5) % Eos % (Auto) (0.7-5.8) Baso % (Auto) (0.1-1.2) % Neut # (Auto) (1.56-6.13) K/mm3 Lymph # (Auto) (1.18-3.74) K/mm3 [place] # (Auto) (0.24-0.36) K/mm3 Eos # (Auto) (0.04-0.36) K/mm3 Baso # (Auto) (0.01-0.08) K/mm3 Manual Slide Review Sodium (136-145) mEq/L Potassium (3.5-5.1) mEq/L Chloride (98-107) mEq/L Carbon Dioxide (21-32) mEq/L Anion Gap (5-15) BUN (7-18) mg/dL Creatinine (0.55-1.02) mg/dL Est Cr Clr Drug Dosing mL/min Estimated GFR (MDRD) (>60) mL/min BUN/Creatinine Ratio (14-18) Glucose (83-115) mg/dL POC Glucose 150 H (83-110) mg/dL Calcium (8.5-10.1) mg/dL C-Reactive Protein (<1.0) mg/dL NT-Pro-B Natriuret Pep (0-450) pg/mL SONYA Results - Last 24 hrs: Microbiology 12/03/18 08:00 Aerobic Blood Culture - Final Blood - Venous - Lab Draw NO GROWTH AFTER 7 DAYS Anaerobic Blood Culture - Final NO GROWTH AFTER 7 DAYS 12/03/18 07:52 Aerobic Blood Culture - Final Blood - Venous NO GROWTH AFTER 7 DAYS Anaerobic Blood Culture - Final NO GROWTH AFTER 7 DAYS Med Orders - Current: Current Medications Acetaminophen (Tylenol) 650 mg PO Q6H PRN PRN Reason: Pain/Fever Last Admin: 12/06/18 19:50 Dose: 650 mg Albuterol (Proventil Neb Soln) 2.5 mg NEB Q4H PRN PRN Reason: Shortness of Breath Last Admin: 12/07/18 12:33 Dose: 2.5 mg Aspirin (Halfprin) 81 mg PO DAILY [facility] Last Admin: 12/10/18 08:32 Dose: 81 mg Benzonatate (Tessalon Perles) 100 mg PO BID [facility] Last Admin: 12/10/18 08:38 Dose: 100 mg Bumetanide (Bumex) 0.5 mg IVPUSH BIDDIURETIC [facility] Last Admin: 12/10/18 06:25 Dose: Not Given Calcium Carbonate/Glycine (Tums) 500 mg PO Q4H PRN PRN Reason: Heartburn Clopidogrel Bisulfate (Plavix) 75 mg PO DAILY [facility] Last Admin: 12/10/18 08:38 Dose: 75 mg Dextrose/Water (Dextrose 50% In Water) 50 ml IVPUSH ASDIRECTED PRN PRN Reason: Hypoglycemia Furosemide (Lasix) 40 mg PO DAILY [facility] Last Admin: 12/09/18 09:06 Dose: 40 mg Gabapentin (Neurontin) 300 mg PO TID [facility] Last Admin: 12/10/18 08:34 Dose: 300 mg Guaifenesin/Phenylephrine HCl (Robitussin Dm) 5 ml PO TID@0700,1400,2100 [facility] Last Admin: 12/10/18 06:15 Dose: Not Given Hydralazine HCl (Apresoline) 10 mg IVPUSH Q4H PRN PRN Reason: Hypertension Last Admin: 12/05/18 10:58 Dose: 10 mg Hydrochlorothiazide (Hydrochlorothiazide) 12.5 mg PO BIDDIURETIC [facility] Last Admin: 12/10/18 06:25 Dose: Not Given Diltiazem HCl 125 mg/ Sodium (Chloride) 125 mls @ 5 mls/hr IV TITRATE [facility]; Protocol Insulin Glargine (Lantus) 30 unit SUBCUT DAILY [facility] Last Admin: 12/10/18 08:39 Dose: 30 unit Insulin Human Lispro (Humalog) 0 unit SUBCUT QIDACANDBED [facility]; Protocol Last Admin: 12/10/18 08:39 Dose: 2 units Ipratropium Rosie (Atrovent) 0.5 mg NEB QIDRT [facility] Last Admin: 12/10/18 10:16 Dose: 0.5 mg Levalbuterol HCl (Xopenex) 1.25 mg INH QIDRT [facility] Last Admin: 12/10/18 10:16 Dose: 1.25 mg Levofloxacin (Levaquin) 750 mg PO Q48H [facility] Loratadine (Claritin) 10 mg PO DAILY PRN PRN Reason: Allergies Magnesium Sulfate (Pharmacy To Dose - Magnesium Replacement) 0 dose .XX ASDIRECTED PRN PRN Reason: RX TO WATCH MAG Metoprolol Tartrate (Lopressor) 5 mg IVPUSH Q4H PRN PRN Reason: Tachycardia Metoprolol Tartrate (Lopressor) 25 mg PO Q12H [facility] Last Admin: 12/10/18 08:34 Dose: 25 mg Ondansetron HCl (Zofran) 4 mg IVPUSH Q8H PRN PRN Reason: Nausea/Vomiting Potassium Chloride (Pharmacy To Dose - Potassium Replacement) 0 dose .XX ASDIRECTED PRN PRN Reason: RX TO WATCH K Rivaroxaban (Xarelto) 15 mg PO DAILY [facility] Last Admin: 12/10/18 08:32 Dose: 15 mg Saccharomyces Boulardii (Florastor) 250 mg PO BID [facility] Last Admin: 12/10/18 08:38 Dose: 250 mg Senna/Docusate Sodium (Senna Plus) 1 tab PO DAILY PRN PRN Reason: Constipation Sodium Chloride (Saline Flush) 10 ml FLUSH ASDIRECTED PRN PRN Reason: Keep Vein Open Last Admin: 12/03/18 08:15 Dose: 10 ml Discontinued Medications Albuterol/Ipratropium (Duoneb 3.0-0.5 Mg/3 Ml) 3 ml NEB QID [facility] Last Admin: 12/03/18 21:30 Dose: 3 ml Albuterol/Ipratropium (Duoneb 3.0-0.5 Mg/3 Ml) 3 ml NEB QIDRT [facility] Last Admin: 12/05/18 09:14 Dose: 3 ml Bumetanide (Bumex) 0.5 mg IVPUSH ONETIME ONE Stop: 12/09/18 18:01 Last Admin: 12/09/18 18:38 Dose: 0.5 mg Diltiazem HCl (Cardizem) 10 mg IVPUSH ONETIME ONE Stop: 12/06/18 07:21 Last Admin: 12/06/18 07:42 Dose: 10 mg Diltiazem HCl (Cardizem) 5 mg IVPUSH ONETIME ONE Stop: 12/06/18 09:41 Last Admin: 12/06/18 09:53 Dose: 5 mg Heparin Sodium (Porcine) (Heparin Sodium) 5,000 units SUBCUT Q8H [facility] Last Admin: 12/05/18 05:57 Dose: Not Given Hydrochlorothiazide (Hydrochlorothiazide) 12.5 mg PO BIDDIURETIC [facility] Stop: 12/09/18 06:01 Last Admin: 12/09/18 06:25 Dose: 12.5 mg Ceftriaxone Sodium 2 gm/ (Sodium Chloride) 100 mls @ 200 mls/hr IV ONETIME ONE Stop: 12/03/18 08:33 Last Admin: 12/03/18 08:37 Dose: 200 mls/hr Sodium Chloride (Normal Saline) 1,000 mls @ 1,000 mls/hr IV .BOLUS [facility] Last Admin: 12/03/18 08:15 Dose: 1,000 mls/hr Azithromycin 500 mg/ Sodium (Chloride) 250 mls @ 250 mls/hr IV Q24H [facility] Last Admin: 12/05/18 12:06 Dose: 250 mls/hr Ceftriaxone Sodium 2 gm/ (Sodium Chloride) 100 mls @ 200 mls/hr IV Q24H [facility] Last Admin: 12/05/18 08:46 Dose: 200 mls/hr Potassium Chloride/Sodium Chloride (Normal Saline With 20 Meq Kcl) 1,000 mls @ 100 mls/hr IV ASDIRECTED [facility] Last Admin: 12/04/18 12:59 Dose: 100 mls/hr Potassium Chloride 10 meq/ (Premix) 100 mls @ 100 mls/hr IV Q1H [facility] Stop: 12/03/18 19:29 Last Admin: 12/03/18 21:50 Dose: 100 mls/hr Potassium Chloride 10 meq/ (Premix) 100 mls @ 100 mls/hr IV Q1H [facility] Stop: 12/03/18 22:59 Last Admin: 12/03/18 22:02 Dose: Not Given Piperacillin Sod/Tazobactam (Sod 4.5 gm/ Sodium Chloride) 100 mls @ 200 mls/hr IV ONETIME ONE Stop: 12/06/18 08:29 Last Admin: 12/06/18 09:15 Dose: 200 mls/hr Piperacillin Sod/Tazobactam (Sod 4.5 gm/ Sodium Chloride) 100 mls @ 25 mls/hr IV Q8H [facility] Last Admin: 12/09/18 07:39 Dose: 25 mls/hr Vancomycin HCl 1 gm/ Sodium (Chloride) 250 mls @ 250 mls/hr IV Q24H [facility] Last Admin: 12/08/18 12:19 Dose: Not Given Potassium Chloride 10 meq/ (Premix) 100 mls @ 100 mls/hr IV Q1H [facility] Stop: 12/06/18 14:59 Last Admin: 12/06/18 17:41 Dose: 100 mls/hr Sodium Chloride (Normal Saline) 500 mls @ 999 mls/hr IV .BOLUS ONE Stop: 12/06/18 11:29 Last Admin: 12/06/18 14:30 Dose: 999 mls/hr Sodium Chloride (Normal Saline) 100 mls @ [facility] Last Admin: 12/06/18 14:09 Dose: 75 mls/hr Sodium Chloride (Normal Saline) 1,000 mls @ 50 mls[facility] Last Admin: 12/07/18 03:52 Dose: 50 mls/hr Potassium Chloride 10 meq/ (Premix) 100 mls @ 100 mls/hr IV Q1H [facility] Stop: 12/07/18 14:29 Last Admin: 12/07/18 14:12 Dose: 100 mls/hr Magnesium Sulfate 2 gm/ Premix 50 mls @ 25 mls/hr IV ONETIME ONE Stop: 12/07/18 10:29 Last Admin: 12/07/18 08:36 Dose: 25 mls/hr Vancomycin HCl 1 gm/ Sodium (Chloride) 250 mls @ 250 mls/hr IV Q12H [facility] Last Admin: 12/08/18 23:17 Dose: 250 mls/hr Iopamidol (Isovue-370 (76%)) 100 ml IVPUSH ONETIME ONE Stop: 12/06/18 11:38 Last Admin: 12/06/18 14:08 Dose: 100 ml Levalbuterol HCl (Xopenex) 1.25 mg NEB QIDRT [facility] Stop: 12/09/18 18:00 Last Admin: 12/09/18 15:36 Dose: 1.25 mg Levofloxacin (Levaquin) 750 mg PO Q24H [facility] Last Admin: 12/09/18 12:16 Dose: 750 mg Magnesium Oxide (Magnesium Oxide) 400 mg PO ONETIME ONE Stop: 12/04/18 20:31 Last Admin: 12/04/18 21:09 Dose: Not Given Metoprolol Tartrate (Lopressor) 25 mg PO Q12H [facility] Last Admin: 12/06/18 12:32 Dose: 25 mg Oseltamivir Phosphate (Tamiflu) 75 mg PO ONETIME ONE Stop: 12/03/18 09:07 Last Admin: 12/03/18 09:15 Dose: 75 mg Oseltamivir Phosphate (Tamiflu) 30 mg PO DAILY [facility] Stop: 12/07/18 09:01 Last Admin: 12/07/18 08:40 Dose: 30 mg Potassium Chloride (Klor-Con M20) 40 meq PO ONETIME ONE Stop: 12/03/18 09:18 Last Admin: 12/03/18 09:26 Dose: 40 meq Potassium Chloride (Klor-Con M20) 40 meq PO TID [facility] Stop: 12/03/18 21:01 Last Admin: 12/03/18 13:26 Dose: 40 meq Potassium Chloride (Potassium Chloride Solution) 40 meq PO TID [facility] Stop: 12/04/18 09:01 Last Admin: 12/03/18 14:41 Dose: Not Given Potassium Chloride (Klor-Con M20) 40 meq PO Q4H [facility] Stop: 12/05/18 00:31 Last Admin: 12/05/18 00:26 Dose: Not Given Potassium Chloride (Klor-Con M20) 40 meq PO ONETIME ONE Stop: 12/06/18 09:16 Last Admin: 12/06/18 09:29 Dose: Not Given Potassium Chloride (Klor-Con M20) 40 meq PO ONETIME ONE Stop: 12/08/18 09:31 Last Admin: 12/08/18 10:44 Dose: Not Given Potassium Chloride (Klor-Con M20) 40 meq PO Q4H [facility] Stop: 12/09/18 23:31 Last Admin: 12/09/18 23:02 Dose: Not Given Sodium Chloride (Saline Flush) 10 ml FLUSH ONETIME PRN PRN Reason: IV FLUSH Last Admin: 12/06/18 14:08 Dose: 10 ml Vancomycin HCl (Pharmacy To Dose - Vancomycin) 0 dose .XX DAILY PRN PRN Reason: RX TO DOSE VANCO - Exam Quality Assessment: Denies: Supplemental Oxygen General: Reports: Alert, Oriented, Cooperative, No Acute Distress HEENT: Reports: Pupils Equal, Pupils Reactive, EOMI, Mucous Membr. Moist/Annex Neck: Reports: Supple Lungs: Reports: Normal Respiratory Effort, Decreased Breath Sounds, Crackles Cardiovascular: Reports: Regular Rate, Regular Rhythm GI/Abdominal Exam: Normal Bowel Sounds, Soft, Non-Tender, No Organomegaly, No Distention, No Abnormal Bruit (Female) Exam: Deferred Rectal (Female) Exam: Deferred Back Exam: Reports: Normal Inspection, Decreased Range of Motion Extremities: Normal Inspection, Normal Range of Motion, Non-Tender, Normal Capillary Refill, Pedal Edema, Other (trace bilateral lower etxremity edema) Skin: Reports: Dry, Intact Neurological: Reports: No New Focal Deficit Psy/Mental Status: Reports: Alert, Normal Affect, Normal Mood
[2018-12-11] MEDS ORDERED: Levofloxacin 750 MG Tab PO SCH (12:00)
== END 2018-12-10 12:25 | disposition home or self-care (01) | DRG 194 ==
LOC: JD.ED 07:28 → JD.MS 09:59 → JD.ICU 12-06 07:19 → JD.MS 12-09 18:27
PROVIDERS: ADMIT Internal Medicine Cardiovascular Disease; ATTEND Internal Medicine Cardiovascular Disease
DX: J10.00 Influenza due to other identified influenza virus with unspecified type of pneumonia (principal); N17.9 Acute kidney failure, unspecified; I49.9 Cardiac arrhythmia, unspecified; E87.6 Hypokalemia; I13.0 Hypertensive heart and chronic kidney disease with heart failure and stage 1 through stage 4 chronic kidney disease, or unspecified chronic kidney disease; I50.9 Heart failure, unspecified; I11.0 Hypertensive heart disease with heart failure; E11.22 Type 2 diabetes mellitus with diabetic chronic kidney disease; N18.9 Chronic kidney disease, unspecified; E86.0 Dehydration; E78.5 Hyperlipidemia, unspecified; I48.91 Unspecified atrial fibrillation; E83.42 Hypomagnesemia; R79.1 Abnormal coagulation profile; E11.65 Type 2 diabetes mellitus with hyperglycemia; K59.09 Other constipation; R09.02 Hypoxemia; R13.10 Dysphagia, unspecified; R33.9 Retention of urine, unspecified; G89.29 Other chronic pain; M54.9 Dorsalgia, unspecified; F32.9 Major depressive disorder, single episode, unspecified; D64.9 Anemia, unspecified; H54.7 Unspecified visual loss; R50.9 Fever, unspecified; R53.1 Weakness; Z88.1 Allergy status to other antibiotic agents; Z79.899 Other long term (current) drug therapy; Z79.4 Long term (current) use of insulin; Z79.02 Long term (current) use of antithrombotics/antiplatelets; Z91.14 Patient's other noncompliance with medication regimen; Z66 Do not resuscitate; Z91.19 Patient's noncompliance with other medical treatment and regimen; Z90.49 Acquired absence of other specified parts of digestive tract; Z86.73 Personal history of transient ischemic attack (TIA), and cerebral infarction without residual deficits; Z85.828 Personal history of other malignant neoplasm of skin; Z79.82 Long term (current) use of aspirin
CPT/HCPCS: 36415; 71045; 80053; 81001; 83605; 85025; 86140; 86738; 87040 ×2; 87081; 87430; 87804 ×2; 87899; 96361; 96365; 99285; A9270 ×2; J0696; J7030; J7040; 71046; 71046-26; 71275; 71275-26; 80048; 80202; 82553; 82962; 83735; 83880; 84484; 85379; 87486; 87493; 87581; 87632; 87641; 87798; 93005; 93306; 94640; 94667; 94668; 94760; 94761; 97110-GP; 97116-GP; 97162-GP; 97165-GO; 97530-GO; 97530-GP; 99284; J0360; J0456; J1644; J1815; J2543; J3370; J3475; J3480; J3490; J7050; J7612-GY; J7620-GY; Q9967

== ENCOUNTER 2019-04-29 13:39 | Inpatient (IN) | payer MEDICARE, OTHER ==
[2019-04-29] MEDS ORDERED: Sodium Chloride 0.9% 10 ML Syringe FLUSH PRN (14:10)
--- NOTE | 2019-04-29 14:27 | EDM.PDOC ---
ED HPI GENERAL MEDICAL PROBLEM - General Chief Complaint: Fever Stated Complaint: [facility] Time Seen by Provider: 04/29/19 14:02 Source of Information: Reports: Patient, EMS, Correction Records History Limitations: Reports: No Limitations - History of Present Illness INITIAL COMMENTS - FREE TEXT/NARRATIVE: 88-year-old female is brought in via [facility] from [facility] for evaluation and treatment of low oxygen sats, lethargy and fever. Reportedly O2 reading was 60% on room air. On 2 L via nasal cannula oxygen sats improved to 90%. Patient has a documented diagnosis of dementia, unsure how reliable a historian she is. Patient denies any sore throat, cough, abdominal pain, vomiting or diarrhea. Patient is on xarelto. Patient is a DNR/DNI. - Related Data Allergies Allergy/AdvReac Type Severity Reaction Status Date / Time levofloxacin [From Levaquin] Allergy Itching Verified 04/29/19 13:44 Home Meds: Home Meds Aspirin [Halfprin] 81 mg PO DAILY 10/20/15 [History] Clopidogrel [Plavix] 75 mg PO BEDTIME 10/20/15 [History] Cyanocobalamin (Vitamin B12) [Vitamin B12] 1,000 mcg PO DAILY 10/20/15 [History] Gabapentin [Neurontin] 600 mg PO TID 10/20/15 [History] Insulin Aspart [Novolog Flexpen] 11 unit SQ TID 10/20/15 [History] Sennosides/Docusate Sodium [Senna-Docusate Sodium] 1 tab PO DAILY 03/05/16 [ History] Acetaminophen 500 mg PO BEDTIME 07/12/16 [History] Acetaminophen [Tylenol Extra Strength] 1,000 mg PO Q6HR PRN 07/12/16 [History] Calcium Carbonate [Tums] 400 mg PO Q4H PRN 07/12/16 [History] Vitamin E 400 unit PO DAILY 07/12/16 [History] Loratadine [Claritin] 10 mg PO DAILY PRN 10/05/18 [History] Rivaroxaban [Xarelto] 15 mg PO DAILY #30 tablet 12/10/18 [Rx] Furosemide [Lasix] 20 mg PO DAILY 04/29/19 [History] Furosemide [Lasix] 20 mg PO DAILY PRN 04/29/19 [History] Insulin Degludec [Tresiba] 30 unit SQ DAILY 04/29/19 [History] MO/Pet,Wh/Phenylephrine/Shk Lv [Preparation H Oint] 1 appful RECTAL BID PRN 03/14 [History] Metoprolol Succinate 50 mg PO DAILY 04/29/19 [History] Polyethylene Glycol 3350 [MiraLAX] 17 gm PO DAILY PRN 04/29/19 [History] Sennosides [Senna] 8.6 mg PO DAILY PRN 04/29/19 [History] Sennosides/Docusate Sodium [Senexon-S Tablet] 1 tab PO DAILY PRN 04/29/19 [ History] metOLazone [Metolazone] 2.5 mg PO TUTH 04/29/19 [History] Past Medical History HEENT History: Reports: Impaired Vision Cardiovascular History: Reports: Arrhythmia, Heart Failure, Hypertension Other Cardiovascular History: Afib, anemia Respiratory History: Reports: Other (See Below) Other Respiratory History: hypoxemia Gastrointestinal History: Reports: Chronic Constipation Other Gastrointestinal History: dysphagia Genitourinary History: Reports: Chronic Renal Insuffiency, Retention, Urinary BUSINESS MANAGEMENT INTERN History: Reports: Musculoskeletal History: Reports: Back Pain, Chronic Other Musculoskeletal History: muscle weakness Neurological History: Reports: TIA, Other (See Below) Other Neuro History: cerebral infarct; neuralgia Psychiatric History: Reports: Depression Other Psychiatric History: vascular dementia Endocrine/Metabolic History: Reports: Diabetes, Type II Hematologic History: Reports: Anemia Oncologic (Cancer) History: Reports: Other (See Below) Other Oncologic History: unknown skin cancer Dermatologic History: Reports: Other (See Below) Other Dermatologic History: previous supspected skin cancer - Past Surgical History GI Surgical History: Reports: Cholecystectomy Social & Family History - Family History Family Medical History: Noncontributory - Caffeine Use Caffeine Use: Reports: None ED ROS GENERAL - Review of Systems Review Of Systems: See Below Constitutional: Reports: Fever, Fatigue, Other (lethargy) HEENT: Denies: Ear Pain, Throat Pain Respiratory: Reports: Other (oxygen saturation was reportedly 60% on RA). Denies: Shortness of Breath, Cough Cardiovascular: Denies: Chest Pain GI/Abdominal: Denies: Abdominal Pain, Vomiting ED EXAM, SEPSIS - Physical Exam Exam: See Below Exam Limited By: No Limitations General Appearance: Alert, WD/WN, No Apparent Distress Throat/Mouth: Normal Voice, No Airway Compromise, Other (lips, tongue and mucus membranes are very dry) Respiratory/Chest: No Respiratory Distress, Decreased Breath Sounds Cardiovascular: Normal Peripheral Pulses, Regular Rate, Rhythm, No Murmur GI/Abdominal Exam: Soft, Non-Tender Neurological: Alert, Slow to Respond Skin: Dry, Ecchymosis (left forearm and elbow; muscle atrophy to the left forearm; per the patient's daughter this is from an old injury approximately 1 month ago), Increased Warmth EKG INTERPRETATION EKG Date: 04/29/19 Time: 14:34 Rhythm: NSR Rate (Beats/Min): 81 [place]: Normal P-Wave: Present QRS: Normal ST-T: Normal QT: Normal EKG Interpretation Comments: NSR at 81 bpm. PAC. No ischemic changes. Reviewd by myself and Dr. Klein. Course - Vital Signs Last Recorded V/S: Last Vital Signs Temp 99.6 F 04/29/19 13:41 Pulse 78 04/29/19 13:41 Resp 16 04/29/19 13:41 BP 119/44 L 04/29/19 13:41 Pulse Ox 60 L 04/29/19 13:41 - Orders/Labs/Meds Orders: Active Orders 24 hr Category Date Time Status Patient Status [ADT] Routine ADT 04/29/19 16:29 Active EKG Documentation Completion [RC] ASDIRECTED Care 04/29/19 13:45 Active Oxygen Therapy [RC] ASDIRECTED Care 04/29/19 14:18 Active Peripheral IV Care [RC] Q2HR Care 04/29/19 14:10 Active CULTURE BLOOD [BC] Stat Lab 04/29/19 14:25 Received CULTURE BLOOD [BC] Stat Lab 04/29/19 14:30 Received Sodium Chloride 0.9% [Saline Flush] Med 04/29/19 14:10 Active 10 ml FLUSH ASDIRECTED PRN Peripheral IV Insertion Adult [OM.PC] Routine Oth 04/29/19 14:10 Ordered EKG 12 Lead [EK] Stat Ther 04/29/19 13:44 Ordered Medication Orders Aspirin (Halfprin) 81 mg PO DAILY [facility] Cholecalciferol (Vitamin D3) 1,000 units PO DAILY [facility] Clopidogrel Bisulfate (Plavix) 75 mg PO BEDTIME [facility] Gabapentin (Neurontin) 300 mg PO TID [facility] Azithromycin 500 mg/ Sodium (Chloride) 250 mls @ 250 mls/hr IV Q24H [facility] Sodium Chloride (Normal Saline) 1,000 mls @ 100 mls/hr IV ASDIRECTED [facility] Vancomycin HCl 1 gm/Vancomycin HCl 250 mg/ Sodium Chloride 250 mls @ 100 mls/ hr IV ONETIME ONE Stop: 04/29/19 20:26 Piperacillin Sod/Tazobactam (Sod 4.5 gm/ Sodium Chloride) 100 mls @ 25 mls/hr IV Q12H [facility] Piperacillin Sod/Tazobactam (Sod 4.5 gm/ Sodium Chloride) 100 mls @ 200 mls/hr IV ONETIME ONE Stop: 04/29/19 19:44 Last Admin: 04/29/19 19:19 Dose: 200 mls/hr Insulin Human Lispro (Humalog) 0 unit SUBCUT QIDACANDBED [facility]; Protocol Metoprolol Succinate (Toprol Xl) 50 mg PO DAILY [facility] Non-Formulary Medication (Acetaminophen) 1,000 mg PO Q6HR PRN PRN Reason: Pain Rivaroxaban (Xarelto) 15 mg PO DAILY [facility] Senna/Docusate Sodium (Senna Plus) 1 tab PO DAILY PRN PRN Reason: Constipation Sodium Chloride (Saline Flush) 10 ml FLUSH ASDIRECTED PRN PRN Reason: Keep Vein Open Last Admin: 04/29/19 14:46 Dose: 10 ml Labs: Laboratory Tests 04/29/19 04/29/19 04/29/19 Range/Units 14:15 14:25 14:25 WBC 20.60 H (3.98-10.04) K/mm3 RBC 3.72 L (3.98-5.22) M/mm3 Hgb 10.6 L (11.2-15.7) gm/L Hct 33.1 L (34.1-44.9) % MCV 89.0 (79.4-94.8) fl MCH 28.5 (25.6-32.2) pg MCHC 32.0 L (32.2-35.5) g/dl RDW Std Deviation 46.5 H (36.4-46.3) fL Plt Count 297 D (182-369) K/mm3 MPV 9.5 (9.4-12.3) fl Neutrophils % (Manual) 84 H (40-60) % Band Neutrophils % 1 (0-10) % Lymphocytes % (Manual) 12 L (20-40) % Atypical Lymphs % 0 % Monocytes % (Manual) 3 (2-10) % Eosinophils % (Manual) 0 L (0.7-5.8) % Basophils % (Manual) 0 L (0.1-1.2) Toxic Granulation 1+ slight Dohle Bodies Few Platelet Estimate Adequate Plt Morphology Comment Normal Hypochromasia 1+ slight Anisocytosis 1+ slight Stomatocytes 1+ slight RBC Morph Comment Not Reportable Puncture Site Lt radial ABG pH 7.54 H (7.35-7.45) ABG pCO2 39.2 (35.0-45.0) mmHg ABG pO2 50.0 L (80.0-100.0) mmHg ABG HCO3 33.5 H (22.0-26.0) meq/L ABG O2 Saturation 87.1 L (96.0-97.0) % ABG Base Excess 10.2 H (-2-2.0) Eric Test Positive O2 Delivery Device Nasal cannula Oxygen Flow Rate 2.0 FiO2 0.00 L (21.00-100.00) % Sodium 137 (136-145) mEq/L Potassium 2.7 L (3.5-5.1) mEq/L Chloride 95 L (98-107) mEq/L Carbon Dioxide 33 H (21-32) mEq/L Anion Gap 11.7 (5-15) BUN 28 H (7-18) mg/dL Creatinine 1.7 H (0.55-1.02) mg/dL Est Cr Clr Drug Dosing 16.75 mL/min Estimated GFR (MDRD) 28 (>60) mL/min BUN/Creatinine Ratio 16.5 (14-18) Glucose 109 (83-115) mg/dL Lactic Acid (0.4-2.0) mmol/L Calcium 9.4 (8.5-10.1) mg/dL Magnesium (1.8-2.4) mg/dl Total Bilirubin 0.6 (0.2-1.0) mg/dL AST 13 L (15-37) U/L ALT 15 (14-59) U/L Alkaline Phosphatase 76 (46-116) U/L C-Reactive Protein 30.1 H* (<1.0) mg/dL Total Protein 7.6 (6.4-8.2) g/dl Albumin 3.1 L (3.4-5.0) g/dl Globulin 4.5 gm/dL Albumin/Globulin Ratio 0.7 L (1-2) Urine Color (Yellow) Urine Appearance (Clear) Urine pH (5.0-8.0) Ur Specific [place] (1.005-1.030) Urine Protein (Negative) Urine Glucose (UA) (Negative) Urine Ketones (Negative) Urine Occult Blood (Negative) Urine Nitrite (Negative) Urine Bilirubin (Negative) Urine Urobilinogen (0.2-1.0) Ur Leukocyte Esterase (Negative) Urine RBC (0-5) /hpf Urine WBC (0-5) /hpf Ur Squamous Epith Cells (0-5) /hpf Urine Bacteria (FEW) /hpf Hyaline Casts (0-5) /lpf Urine Mucus (FEW) /hpf Mycoplasma pneumon IgM (NEGATIVE) 04/29/19 04/29/19 04/29/19 Range/Units 14:25 14:25 16:00 WBC (3.98-10.04) K/mm3 RBC (3.98-5.22) M/mm3 Hgb (11.2-15.7) gm/L Hct (34.1-44.9) % MCV (79.4-94.8) fl MCH (25.6-32.2) pg MCHC (32.2-35.5) g/dl RDW Std Deviation (36.4-46.3) fL Plt Count (182-369) K/mm3 MPV (9.4-12.3) fl Neutrophils % (Manual) (40-60) % Band Neutrophils % (0-10) % Lymphocytes % (Manual) (20-40) % Atypical Lymphs % % Monocytes % (Manual) (2-10) % Eosinophils % (Manual) (0.7-5.8) % Basophils % (Manual) (0.1-1.2) Toxic Granulation Dohle Bodies Platelet Estimate Plt Morphology Comment Hypochromasia Anisocytosis Stomatocytes RBC Morph Comment Puncture Site ABG pH (7.35-7.45) ABG pCO2 (35.0-45.0) mmHg ABG pO2 (80.0-100.0) mmHg ABG HCO3 (22.0-26.0) meq/L ABG O2 Saturation (96.0-97.0) % ABG Base Excess (-2-2.0) Eric Test O2 Delivery Device Oxygen Flow Rate FiO2 (21.00-100.00) % Sodium (136-145) mEq/L Potassium (3.5-5.1) mEq/L Chloride (98-107) mEq/L Carbon Dioxide (21-32) mEq/L Anion Gap (5-15) BUN (7-18) mg/dL Creatinine (0.55-1.02) mg/dL Est Cr Clr Drug Dosing mL/min Estimated GFR (MDRD) (>60) mL/min BUN/Creatinine Ratio (14-18) Glucose (83-115) mg/dL Lactic Acid 1.2 (0.4-2.0) mmol/L Calcium (8.5-10.1) mg/dL Magnesium 2.3 (1.8-2.4) mg/dl Total Bilirubin (0.2-1.0) mg/dL AST (15-37) U/L ALT (14-59) U/L Alkaline Phosphatase (46-116) U/L C-Reactive Protein (<1.0) mg/dL Total Protein (6.4-8.2) g/dl Albumin (3.4-5.0) g/dl Globulin gm/dL Albumin/Globulin Ratio (1-2) Urine Color Yellow (Yellow) Urine Appearance Clear (Clear) Urine pH 6.5 (5.0-8.0) Ur Specific [place] 1.020 (1.005-1.030) Urine Protein Negative (Negative) Urine Glucose (UA) Negative (Negative) Urine Ketones Negative (Negative) Urine Occult Blood Negative (Negative) Urine Nitrite Negative (Negative) Urine Bilirubin Negative (Negative) Urine Urobilinogen 0.2 (0.2-1.0) Ur Leukocyte Esterase Negative (Negative) Urine RBC Not seen (0-5) /hpf Urine WBC 0-5 (0-5) /hpf Ur Squamous Epith Cells 0-5 (0-5) /hpf Urine Bacteria Few (FEW) /hpf Hyaline Casts 5-10 H (0-5) /lpf Urine Mucus Not seen (FEW) /hpf Mycoplasma pneumon IgM Negative (NEGATIVE) Meds: Medications Generic Name Dose Route Start Last Admin Trade Name Freq PRN Reason Stop Dose Admin Aspirin 81 mg 04/30/19 09:00 Halfprin PO DAILY [facility] Cholecalciferol 1,000 units 04/29/19 18:15 Vitamin D3 PO DAILY [facility] Clopidogrel Bisulfate 75 mg 04/29/19 21:00 Plavix PO BEDTIME [facility] Gabapentin 300 mg 04/29/19 21:00 Neurontin PO TID [facility] Azithromycin 500 mg/ Sodium 250 mls @ 250 mls/hr 04/29/19 18:00 Chloride IV Q24H [facility] Sodium Chloride 1,000 mls @ 100 mls/hr 04/29/19 18:00 Normal Saline IV ASDIRECTED [facility] Vancomycin HCl 1 gm/ 250 mls @ 100 mls/hr 04/29/19 17:57 Vancomycin HCl 250 mg/ Sodium IV 04/29/19 20:26 Chloride ONETIME ONE Piperacillin Sod/Tazobactam 100 mls @ 25 mls/hr 04/30/19 09:00 Sod 4.5 gm/ Sodium Chloride IV Q12H [facility] Piperacillin Sod/Tazobactam 100 mls @ 200 mls/hr 04/29/19 19:15 04/29/19 19: 19 Sod 4.5 gm/ Sodium Chloride IV 04/29/19 19:44 200 mls/hr ONETIME ONE Administration Insulin Human Lispro 0 unit 04/29/19 22:00 Humalog SUBCUT QIDACANDBED [facility] Protocol Metoprolol Succinate 50 mg 04/30/19 09:00 Toprol Xl PO DAILY [facility] Non-Formulary Medication 1,000 mg 04/29/19 17:53 Acetaminophen PO Q6HR PRN Pain Rivaroxaban 15 mg 04/30/19 09:00 Xarelto PO DAILY [facility] Senna/Docusate Sodium 1 tab 04/29/19 17:53 Senna Plus PO DAILY PRN Constipation Sodium Chloride 10 ml 04/29/19 14:10 04/29/19 14:46 Saline Flush FLUSH 10 ml ASDIRECTED PRN Administration Keep Vein Open Discontinued Medications Generic Name Dose Route Start Last Admin Trade Name Sherifq PRN Reason Stop Dose Admin Ceftriaxone Sodium 2 gm/ 100 mls @ 200 mls/hr 04/29/19 14:46 04/29/19 16:10 Sodium Chloride IV 04/29/19 15:15 200 mls/hr NOW STA Administration Sodium Chloride 1,000 mls @ 500 mls/hr 04/29/19 14:47 04/29/19 16:09 Normal Saline IV 04/29/19 16:46 500 mls/hr ONETIME ONE Administration Sodium Chloride Confirm 04/29/19 18:54 Normal Saline Administered 04/29/19 18:55 Dose 100 mls @ as directed .ROUTE .STK-MED ONE Potassium Chloride 40 meq 04/29/19 15:37 04/29/19 16:11 Klor-Con M20 PO 04/29/19 15:38 40 meq ONETIME ONE Administration - Radiology Interpretation Free Text/Narrative:: Chest: Two views of the chest were obtained. Comparison: Prior chest x-ray of 12/10/18. Patchy areas of increased density seen on both sides of chest. Findings do not appear as severe on current exam although findings on the right side had a more nodular appearance on current study. Heart size appears at the upper limits of normal. Tortuous thoracic aorta is seen. Bony structures are unremarkable. Impression: 1. Diffuse increased density within both sides suggest improving from prior study but difficult to exclude the appearance of pneumonia. 2. Other incidental findings. Left forearm: Two views of the left forearm were obtained. Comparison: Previous left forearm study of 10/21/15. Degenerative change is noted at the radiocarpal joint and within the midcarpal joint with joint space narrowing. Osteopenia is present. No discrete fracture or other bony abnormality is seen. Impression: 1. Osteopenia and degenerative change. 2. No acute abnormality is appreciated. Left elbow: Four views of the left elbow were obtained. Small exostosis is seen off the posterior olecranon process which is felt to be due to stress reaction from the attachment of the triceps tendon. Joint space narrowing is noted within the elbow. No joint effusion is seen. Osteopenia is present. No acute abnormality is appreciated. Impression: 1. Degenerative change and other incidental findings. 2. Nothing acute is appreciated. - Re-Assessments/Exams Free Text/Narrative Re-Assessment/Exam: 04/29/19 16:[address] Cuadra, hospitalist sedimentationist. Agrees to the admission. Will admit to med/surg for pneumonia. Departure - Departure Time of Disposition: 16:30 Disposition: Admitted As Inpatient 67 Condition: Poor Clinical Impression: Hypokalemia Pneumonia Qualifiers: Pneumonia type: due to unspecified organism Laterality: left Lung location: unspecified part of lung Qualified Code(s): J18.9 - Pneumonia, unspecified organism - Discharge Information *PRESCRIPTION DRUG MONITORING PROGRAM REVIEWED*: No *COPY OF PRESCRIPTION DRUG MONITORING REPORT IN PATIENT [place]: No - My Orders Last 24 Hours: My Active Orders 04/29/19 13:44 EKG 12 Lead [EK] Stat 04/29/19 13:45 EKG Documentation Completion [RC] ASDIRECTED 04/29/19 14:10 Peripheral IV Care [RC] Q2HR Sodium Chloride 0.9% [Saline Flush] 10 ml FLUSH ASDIRECTED PRN Peripheral IV Insertion Adult [OM.PC] Routine 04/29/19 14:18 Oxygen Therapy [RC] ASDIRECTED 04/29/19 14:25 CULTURE BLOOD [BC] Stat 04/29/19 14:30 CULTURE BLOOD [BC] Stat 04/29/19 16:29 Patient Status [ADT] Routine - Assessment/Plan Last 24 Hours: My Active Orders 04/29/19 13:44 EKG 12 Lead [EK] Stat 04/29/19 13:45 EKG Documentation Completion [RC] ASDIRECTED 04/29/19 14:10 Peripheral IV Care [RC] Q2HR Sodium Chloride 0.9% [Saline Flush] 10 ml FLUSH ASDIRECTED PRN Peripheral IV Insertion Adult [OM.PC] Routine 04/29/19 14:18 Oxygen Therapy [RC] ASDIRECTED 04/29/19 14:25 CULTURE BLOOD [BC] Stat 04/29/19 14:30 CULTURE BLOOD [BC] Stat 04/29/19 16:29 Patient Status [ADT] Routine
[2019-04-29] MEDS ORDERED: cefTRIAXone 2 GM in Sodium Chloride 0.9% 100 ML IV STA (14:46)
[2019-04-29] MEDS ORDERED: Sodium Chloride 0.9% 1,000 ML IV ONE (14:47)
--- NOTE | 2019-04-29 15:09 | CR ---
Chest: Two views of the chest were obtained. Comparison: Prior chest x-ray of 12/10/18. Patchy areas of increased density seen on both sides of chest. Findings do not appear as severe on current exam although findings on the right side had a more nodular appearance on current study. Heart size appears at the upper limits of normal. Tortuous thoracic aorta is seen. Bony structures are unremarkable. Impression: 1. Diffuse increased density within both sides suggest improving from prior study but difficult to exclude the appearance of pneumonia. 2. Other incidental findings. Diagnostic code #3
[2019-04-29] MEDS ORDERED: Potassium Chloride 20 MEQ Tab.ER PO ONE (15:37)
--- NOTE | 2019-04-29 16:49 | CR ---
Left elbow: Four views of the left elbow were obtained. Small exostosis is seen off the posterior olecranon process which is felt to be due to stress reaction from the attachment of the triceps tendon. Joint space narrowing is noted within the elbow. No joint effusion is seen. Osteopenia is present. No acute abnormality is appreciated. Impression: 1. Degenerative change and other incidental findings. 2. Nothing acute is appreciated. Diagnostic code #2
--- NOTE | 2019-04-29 16:49 | CR ---
Left forearm: Two views of the left forearm were obtained. Comparison: Previous left forearm study of 10/21/15. Degenerative change is noted at the radiocarpal joint and within the midcarpal joint with joint space narrowing. Osteopenia is present. No discrete fracture or other bony abnormality is seen. Impression: 1. Osteopenia and degenerative change. 2. No acute abnormality is appreciated. Diagnostic code #2
[2019-04-29] MEDS ORDERED: PIPERACILLIN IV ONE (18:00)
[2019-04-29] MEDS ORDERED: TAZOBACTAM IV ONE (18:00)
[2019-04-29] MEDS ORDERED: SODIUM CHLORIDE 0.9% IV ONE (18:00)
[2019-04-29] MEDS ORDERED: Piperacillin/Tazobactam 4.5 GM in Sodium Chloride 0.9% 100 ML IV ONE ×2 (18:10→19:15)
--- NOTE | 2019-04-29 18:13 | PCM.HP ---
H&P History of Present Illness - General Date of Service: 04/29/19 Admit Problem/Dx: Admission Diagnosis/Problem Admission Diagnosis/Problem Pneumonia 88 yo with chronic back pain, DMII, CHF admitted from ED after several days of fatigue, cough, hypoxemia, fever. CXR reveals bilteral interstitial infiltrates , somewhat improved since previous admission. Had several admissions with similar presentation. Admitted as IP for further treatment. - Related Data Allergies/Adverse Reactions: Allergies Allergy/AdvReac Type Severity Reaction Status Date / Time levofloxacin [From Levaquin] Allergy Itching Verified 04/29/19 13:44 Home Medications: Home Meds Aspirin [Halfprin] 81 mg PO DAILY 10/20/15 [History] Clopidogrel [Plavix] 75 mg PO BEDTIME 10/20/15 [History] Cyanocobalamin (Vitamin B12) [Vitamin B12] 1,000 mcg PO DAILY 10/20/15 [History] Gabapentin [Neurontin] 600 mg PO TID 10/20/15 [History] Insulin Aspart [Novolog Flexpen] 11 unit SQ TID 10/20/15 [History] Sennosides/Docusate Sodium [Senna-Docusate Sodium] 1 tab PO DAILY 03/05/16 [ History] Acetaminophen 500 mg PO BEDTIME 07/12/16 [History] Acetaminophen [Tylenol Extra Strength] 1,000 mg PO Q6HR PRN 07/12/16 [History] Calcium Carbonate [Tums] 400 mg PO Q4H PRN 07/12/16 [History] Vitamin E 400 unit PO DAILY 07/12/16 [History] Loratadine [Claritin] 10 mg PO DAILY PRN 10/05/18 [History] Rivaroxaban [Xarelto] 15 mg PO DAILY #30 tablet 12/10/18 [Rx] Furosemide [Lasix] 20 mg PO DAILY 04/29/19 [History] Furosemide [Lasix] 20 mg PO DAILY PRN 04/29/19 [History] Insulin Degludec [Tresiba] 30 unit SQ DAILY 04/29/19 [History] MO/Pet,Wh/Phenylephrine/Shk Lv [Preparation H Oint] 1 appful RECTAL BID PRN 03/14 [History] Metoprolol Succinate 50 mg PO DAILY 04/29/19 [History] Polyethylene Glycol 3350 [MiraLAX] 17 gm PO DAILY PRN 04/29/19 [History] Sennosides [Senna] 8.6 mg PO DAILY PRN 04/29/19 [History] Sennosides/Docusate Sodium [Senexon-S Tablet] 1 tab PO DAILY PRN 04/29/19 [ History] metOLazone [Metolazone] 2.5 mg PO TUTH 04/29/19 [History] Past Medical History HEENT History: Reports: Impaired Vision Cardiovascular History: Reports: Arrhythmia, Heart Failure, Hypertension Other Cardiovascular History: Afib, anemia Respiratory History: Reports: Other (See Below) Other Respiratory History: hypoxemia Gastrointestinal History: Reports: Chronic Constipation Other Gastrointestinal History: dysphagia Genitourinary History: Reports: Chronic Renal Insuffiency, Retention, Urinary 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: Musculoskeletal History: Reports: Back Pain, Chronic Other Musculoskeletal History: muscle weakness Neurological History: Reports: TIA, Other (See Below) Other Neuro History: cerebral infarct; neuralgia Psychiatric History: Reports: Depression Other Psychiatric History: vascular dementia Endocrine/Metabolic History: Reports: Diabetes, Type II Hematologic History: Reports: Anemia Oncologic (Cancer) History: Reports: Other (See Below) Other Oncologic History: unknown skin cancer Dermatologic History: Reports: Other (See Below) Other Dermatologic History: previous supspected skin cancer - Past Surgical History GI Surgical History: Reports: Cholecystectomy Social & Family History - Family History Family Medical History: Noncontributory - Tobacco Use Smoking Status *Q: Never Smoker - Caffeine Use Caffeine Use: Reports: None - Recreational Drug Use Recreational Drug Use: No H&P Review of Systems - Review of Systems: Review Of Systems: See Below General: Reports: Fever, Chills, Weakness, Fatigue HEENT: Denies: Dysphasia, Rhinitis, Post Nasal Drip Pulmonary: Reports: Shortness of Breath, Cough. Denies: Wheezing, Hemoptysis Cardiovascular: Reports: Dyspnea on Exertion. Denies: Chest Pain, Palpitations Gastrointestinal: Denies: Abdominal Pain, Anorexia, Hematemesis, Hematochezia Genitourinary: Reports: Incontinence. Denies: Dysuria, Frequency Musculoskeletal: Reports: Back Pain Skin: Denies: Cyanosis, Jaundice Psychiatric: Denies: Suicidal Ideation Neurological: Denies: Seizure, Syncope Hematologic/Lymphatic: Denies: Easy Bleeding, Easy Bruising Exam - Exam Exam: See Below - Vital Signs Vital Signs: Last Vital Signs Temp 99.6 F 04/29/19 13:41 Pulse 78 04/29/19 13:41 Resp 16 04/29/19 13:41 BP 119/44 L 04/29/19 13:41 Pulse Ox 60 L 04/29/19 13:41 Weight: 144 lb - Exam General: Alert, Oriented, Cooperative HEENT: Conjunctiva Clear, Nares Patent Neck: Supple, Trachea Midline Lungs: Decreased Breath Sounds, Crackles Cardiovascular: Regular Rate, Normal S1, Normal S2 GI/Abdominal Exam: Soft, Non-Tender, No Distention Extremities: No Pedal Edema Peripheral Pulses: 2+: Dorsalis Pedis (L), Dorsalis Pedis (R) Skin: Warm, Dry Neuro Extensive - Motor, Sensory, Reflexes: CN II-XII Intact. No: Motor/ Sensory Deficits - Patient Data Lab Results Last 24 hrs: Laboratory Results - last 24 hr 04/29/19 04/29/19 04/29/19 Range/Units 14:15 14:25 14:25 WBC 20.60 H (3.98-10.04) K/mm3 RBC 3.72 L (3.98-5.22) M/mm3 Hgb 10.6 L (11.2-15.7) gm/L Hct 33.1 L (34.1-44.9) % MCV 89.0 (79.4-94.8) fl MCH 28.5 (25.6-32.2) pg MCHC 32.0 L (32.2-35.5) g/dl RDW Std Deviation 46.5 H (36.4-46.3) fL Plt Count 297 D (182-369) K/mm3 MPV 9.5 (9.4-12.3) fl Neutrophils % (Manual) 84 H (40-60) % Band Neutrophils % 1 (0-10) % Lymphocytes % (Manual) 12 L (20-40) % Atypical Lymphs % 0 % Monocytes % (Manual) 3 (2-10) % Eosinophils % (Manual) 0 L (0.7-5.8) % Basophils % (Manual) 0 L (0.1-1.2) Toxic Granulation 1+ slight Dohle Bodies Few Platelet Estimate Adequate Plt Morphology Comment Normal Hypochromasia 1+ slight Anisocytosis 1+ slight Stomatocytes 1+ slight RBC Morph Comment Not Reportable Puncture Site Lt radial ABG pH 7.54 H (7.35-7.45) ABG pCO2 39.2 (35.0-45.0) mmHg ABG pO2 50.0 L (80.0-100.0) mmHg ABG HCO3 33.5 H (22.0-26.0) meq/L ABG O2 Saturation 87.1 L (96.0-97.0) % ABG Base Excess 10.2 H (-2-2.0) Eric Test Positive O2 Delivery Device Nasal cannula Oxygen Flow Rate 2.0 FiO2 0.00 L (21.00-100.00) % Sodium 137 (136-145) mEq/L Potassium 2.7 L (3.5-5.1) mEq/L Chloride 95 L (98-107) mEq/L Carbon Dioxide 33 H (21-32) mEq/L Anion Gap 11.7 (5-15) BUN 28 H (7-18) mg/dL Creatinine 1.7 H (0.55-1.02) mg/dL Est Cr Clr Drug Dosing 16.75 mL/min Estimated GFR (MDRD) 28 (>60) mL/min BUN/Creatinine Ratio 16.5 (14-18) Glucose 109 (83-115) mg/dL Lactic Acid (0.4-2.0) mmol/L Calcium 9.4 (8.5-10.1) mg/dL Magnesium (1.8-2.4) mg/dl Total Bilirubin 0.6 (0.2-1.0) mg/dL AST 13 L (15-37) U/L ALT 15 (14-59) U/L Alkaline Phosphatase 76 (46-116) U/L C-Reactive Protein 30.1 H* (<1.0) mg/dL Total Protein 7.6 (6.4-8.2) g/dl Albumin 3.1 L (3.4-5.0) g/dl Globulin 4.5 gm/dL Albumin/Globulin Ratio 0.7 L (1-2) Urine Color (Yellow) Urine Appearance (Clear) Urine pH (5.0-8.0) Ur Specific [place] (1.005-1.030) Urine Protein (Negative) Urine Glucose (UA) (Negative) Urine Ketones (Negative) Urine Occult Blood (Negative) Urine Nitrite (Negative) Urine Bilirubin (Negative) Urine Urobilinogen (0.2-1.0) Ur Leukocyte Esterase (Negative) Urine RBC (0-5) /hpf Urine WBC (0-5) /hpf Ur Squamous Epith Cells (0-5) /hpf Urine Bacteria (FEW) /hpf Hyaline Casts (0-5) /lpf Urine Mucus (FEW) /hpf Mycoplasma pneumon IgM (NEGATIVE) 04/29/19 04/29/19 04/29/19 Range/Units 14:25 14:25 16:00 WBC (3.98-10.04) K/mm3 RBC (3.98-5.22) M/mm3 Hgb (11.2-15.7) gm/L Hct (34.1-44.9) % MCV (79.4-94.8) fl MCH (25.6-32.2) pg MCHC (32.2-35.5) g/dl RDW Std Deviation (36.4-46.3) fL Plt Count (182-369) K/mm3 MPV (9.4-12.3) fl Neutrophils % (Manual) (40-60) % Band Neutrophils % (0-10) % Lymphocytes % (Manual) (20-40) % Atypical Lymphs % % Monocytes % (Manual) (2-10) % Eosinophils % (Manual) (0.7-5.8) % Basophils % (Manual) (0.1-1.2) Toxic Granulation Dohle Bodies Platelet Estimate Plt Morphology Comment Hypochromasia Anisocytosis Stomatocytes RBC Morph Comment Puncture Site ABG pH (7.35-7.45) ABG pCO2 (35.0-45.0) mmHg ABG pO2 (80.0-100.0) mmHg ABG HCO3 (22.0-26.0) meq/L ABG O2 Saturation (96.0-97.0) % ABG Base Excess (-2-2.0) Eric Test O2 Delivery Device Oxygen Flow Rate FiO2 (21.00-100.00) % Sodium (136-145) mEq/L Potassium (3.5-5.1) mEq/L Chloride (98-107) mEq/L Carbon Dioxide (21-32) mEq/L Anion Gap (5-15) BUN (7-18) mg/dL Creatinine (0.55-1.02) mg/dL Est Cr Clr Drug Dosing mL/min Estimated GFR (MDRD) (>60) mL/min BUN/Creatinine Ratio (14-18) Glucose (83-115) mg/dL Lactic Acid 1.2 (0.4-2.0) mmol/L Calcium (8.5-10.1) mg/dL Magnesium 2.3 (1.8-2.4) mg/dl Total Bilirubin (0.2-1.0) mg/dL AST (15-37) U/L ALT (14-59) U/L Alkaline Phosphatase (46-116) U/L C-Reactive Protein (<1.0) mg/dL Total Protein (6.4-8.2) g/dl Albumin (3.4-5.0) g/dl Globulin gm/dL Albumin/Globulin Ratio (1-2) Urine Color Yellow (Yellow) Urine Appearance Clear (Clear) Urine pH 6.5 (5.0-8.0) Ur Specific [place] 1.020 (1.005-1.030) Urine Protein Negative (Negative) Urine Glucose (UA) Negative (Negative) Urine Ketones Negative (Negative) Urine Occult Blood Negative (Negative) Urine Nitrite Negative (Negative) Urine Bilirubin Negative (Negative) Urine Urobilinogen 0.2 (0.2-1.0) Ur Leukocyte Esterase Negative (Negative) Urine RBC Not seen (0-5) /hpf Urine WBC 0-5 (0-5) /hpf Ur Squamous Epith Cells 0-5 (0-5) /hpf Urine Bacteria Few (FEW) /hpf Hyaline Casts 5-10 H (0-5) /lpf Urine Mucus Not seen (FEW) /hpf Mycoplasma pneumon IgM Negative (NEGATIVE) Result Diagrams: 04/29/19 14:25 04/29/19 14:25 - Problem List (1) Pneumonia SNOMED Code(s): 938512005 ICD Code: J18.9 - PNEUMONIA, UNSPECIFIED ORGANISM Status: Acute Priority : High Current Visit: No Qualifiers: Pneumonia type: due to unspecified organism Laterality: left Lung location: unspecified part of lung Qualified Code(s): J18.9 - Pneumonia, unspecified organism Problem List Initiated/Reviewed/Updated: Yes Orders Last 24hrs: Active Orders 24 hr Category Date Time Status Patient Status [ADT] Routine ADT 04/29/19 16:29 Active Blood Glucose Check, Bedside [RC] WITHMEALSANDBED Care 04/29/19 17:57 Ordered Cardiac Monitoring [RC] CONTINUOUS Care 04/29/19 18:04 Ordered EKG Documentation Completion [RC] ASDIRECTED Care 04/29/19 13:45 Active Height and Weight [RC] DAILY Care 04/29/19 18:03 Ordered Insert Blackman Catheter [Insert Urinary Catheter] [OM.PC] Care 04/29/19 16:00 Ordered Stat Intake and Output [RC] QSHIFT Care 04/29/19 18:04 Ordered Oxygen Therapy [RC] ASDIRECTED Care 04/29/19 14:18 Active Oxygen Therapy [RC] PRN Care 04/29/19 17:57 Ordered Oxygen Therapy [RC] PRN Care 04/29/19 18:03 Ordered Peripheral IV Care [RC] Q2HR Care 04/29/19 14:10 Active Pulse Oximetry [RC] CONTINUOUS Care 04/29/19 17:57 Ordered VTE/DVT Education [RC] PER UNIT ROUTINE Care 04/29/19 18:03 Ordered Vital Signs [RC] Q4H Care 04/29/19 18:03 Ordered Chest 1V Frontal [CR] AM Exams 04/30/19 05:11 Ordered CULTURE BLOOD [BC] Stat Lab 04/29/19 14:25 Received CULTURE BLOOD [BC] Stat Lab 04/29/19 14:30 Received LEGIONELLA ANTIGEN [MREF] Urgent Lab 04/29/19 18:07 Ordered LEGIONELLA PNEUMOPHILA 1-6,IGM [REF] Urgent Lab 04/29/19 18:07 Ordered METH-RESIST S.AUR,MRSA BY PCR [MOLEC] Routine Lab 04/29/19 17:15 Received Acetaminophen Med 04/29/19 17:53 Ordered 1,000 mg PO Q6HR PRN Aspirin [Halfprin] Med 04/30/19 09:00 Ordered 81 mg PO DAILY Azithromycin [Zithromax] 500 mg Med 04/29/19 17:58 Ordered Sodium Chloride 0.9% [Normal Saline] 250 ml IV Q24H Cholecalciferol (Vitamin D3) [Vitamin D3] Med 04/29/19 18:15 Ordered 1,000 units PO DAILY Clopidogrel [Plavix] Med 04/29/19 21:00 Ordered 75 mg PO BEDTIME Docusate Sodium/Sennosides [Senna Plus] Med 04/29/19 17:53 Ordered 1 tab PO DAILY PRN Gabapentin [Neurontin] Med 04/29/19 21:00 Ordered 300 mg PO TID Insulin Lispro [HumaLOG] Med 04/29/19 22:00 Ordered See Protocol SUBCUT QIDACANDBED Metoprolol Succinate [Toprol XL] Med 04/30/19 09:00 Ordered 50 mg PO DAILY Piperacillin/Tazobactam [Piperacil-Tazobact] 3.275 gm Med 04/29/19 18:00 Ordered Sodium Chloride 0.9% [Normal Saline] 100 ml IV Q6H Rivaroxaban [Xarelto] Med 04/30/19 09:00 Ordered 15 mg PO DAILY Sodium Chloride 0.9% [Normal Saline] 1,000 ml Med 04/29/19 18:00 Ordered IV ASDIRECTED Sodium Chloride 0.9% [Saline Flush] Med 04/29/19 14:10 Active 10 ml FLUSH ASDIRECTED PRN Vancomycin 1.25 gm Med 04/29/19 17:57 Ordered Sodium Chloride 0.9% [Normal Saline] 250 ml IV ONETIME Peripheral IV Insertion Adult [OM.PC] Routine Oth 04/29/19 14:10 Ordered Resuscitation Status Routine Resus Stat 04/29/19 18:03 Ordered EKG 12 Lead [EK] Stat Ther 04/29/19 13:44 Ordered Medication Orders Aspirin (Halfprin) 81 mg PO DAILY KANNAN Clopidogrel Bisulfate (Plavix) 75 mg PO BEDTIME KANNAN Gabapentin (Neurontin) 300 mg PO TID KANNAN Azithromycin 500 mg/ Sodium (Chloride) 250 mls @ 250 mls/hr IV Q24H KANNAN Piperacillin Sod/Tazobactam (Sod 3.275 gm/ Sodium Chloride) 100 mls @ 200 mls/ hr IV Q6H KANNAN Sodium Chloride (Normal Saline) 1,000 mls @ 100 mls/hr IV ASDIRECTED KANNAN Vancomycin HCl 1.25 gm/ Sodium (Chloride) 250 mls @ 100 mls/hr IV ONETIME ONE Stop: 04/29/19 20:26 Metoprolol Succinate (Toprol Xl) 50 mg PO DAILY KANNAN Non-Formulary Medication (Acetaminophen) 1,000 mg PO Q6HR PRN PRN Reason: Pain Rivaroxaban (Xarelto) 15 mg PO DAILY KANNAN Senna/Docusate Sodium (Senna Plus) 1 tab PO DAILY PRN PRN Reason: Constipation Sodium Chloride (Saline Flush) 10 ml FLUSH ASDIRECTED PRN PRN Reason: Keep Vein Open Last Admin: 04/29/19 14:46 Dose: 10 ml Assessment/Plan Comment:: 1. Empiric azithromycin, vancomycin and Zosyn, has h/o MRSA. 2. `DVTP - on Xarelto.
[2019-04-29] MEDS ORDERED: Cholecalciferol (Vitamin D3) 1,000 Unit Tab PO SCH (18:15)
[2019-04-29] MEDS ORDERED: Sodium Chloride 0.9% 100 ML ONE (18:54)
[2019-04-29] MEDS: Azithromycin 500 MG in Sodium Chloride 0.9% 250 ML IV SCH (19:55)
[2019-04-29] MEDS: Sodium Chloride 0.9% 1,000 ML IV SCH (20:00)
[2019-04-29] MEDS: Cholecalciferol (Vitamin D3) 1,000 Unit Tab PO SCH (21:14)
[2019-04-29] MEDS: Gabapentin 300 MG Cap PO SCH (21:15)
[2019-04-29] MEDS: Clopidogrel 75 MG Tab PO SCH (21:15)
[2019-04-29] MEDS: Insulin Lispro 100 Units/ML 3 ML Vial SUBCUT SCH (21:23)
[2019-04-30] MEDS: Sodium Chloride 0.9% 1,000 ML IV SCH ×2 (00:08→10:09)
[2019-04-30] MEDS: Insulin Lispro 100 Units/ML 3 ML Vial SUBCUT SCH ×4 (07:07→21:41)
--- NOTE | 2019-04-30 08:31 | CR ---
Chest: Portable view of the chest was obtained. Comparison: Prior chest x-ray of 04/29/19 and 12/10/18. Increased density is seen within both sides of the chest, worse on the left side. Findings are felt to be fairly stable from most recent study when allowing for differences in inspiratory effort. Heart size and mediastinum are unchanged. Bony structures are also unchanged. Impression: 1. Increased parenchymal density within both sides of the chest worse on the left side. No appreciable change is seen from most recent chest x-ray. Diagnostic code #3
[2019-04-30] MEDS ORDERED: Piperacillin/Tazobactam 4.5 GM in Sodium Chloride 0.9% 100 ML IV SCH (09:00)
[2019-04-30] MEDS ORDERED: Piperacillin/Tazobactam 4.5 GM AdvVial ONE (09:29)
[2019-04-30] MEDS: Metoprolol Succinate 50 MG Tab.ER PO SCH (09:52)
[2019-04-30] MEDS: Gabapentin 300 MG Cap PO SCH ×3 (10:10→21:30)
[2019-04-30] MEDS: Aspirin 81 MG Tab.EC PO SCH (10:10)
[2019-04-30] MEDS: Rivaroxaban 10 MG Tab PO SCH (10:10)
[2019-04-30] MEDS ORDERED: Potassium Chloride 20 MEQ Tab.ER PO ONE (10:34)
--- NOTE | 2019-04-30 11:15 | PCM.PN ---
- General Info Date of Service: 04/30/19 Admission Dx/Problem (Free Text): 88 yo with chronic back pain, DMII, CHF admitted from ED after several days of fatigue, cough, hypoxemia, fever. CXR reveals bilteral interstitial infiltrates , somewhat improved since previous admission. Had several admissions with similar presentation. Admitted as IP for further treatment. 04/30/2019, clinically better, has severe debilitating sciatica pain, will start trial of low dose fentanyl patch. - Review of Systems Systems Review Comment:: General: Reports: Fever, Chills, less Weakness, Fatigue HEENT: Denies: Dysphasia, Rhinitis, Post Nasal Drip Pulmonary: Reports: Shortness of Breath, Cough. Denies: Wheezing, Hemoptysis Cardiovascular: Reports: Dyspnea on Exertion. Denies: Chest Pain, Palpitations Gastrointestinal: Denies: Abdominal Pain, Anorexia, Hematemesis, Hematochezia Genitourinary: Reports: Incontinence. Denies: Dysuria, Frequency Musculoskeletal: Reports: Back Pain Skin: Denies: Cyanosis, Jaundice Psychiatric: Denies: Suicidal Ideation Neurological: Denies: Seizure, Syncope Hematologic/Lymphatic: Denies: Easy Bleeding, Easy Bruising - Patient Data Vitals - Most Recent: Last Vital Signs Temp 98.8 F 04/30/19 03:09 Pulse 99 04/30/19 09:55 Resp 16 04/30/19 03:09 BP 133/48 L 04/30/19 09:55 Pulse Ox 90 L 04/30/19 10:36 Weight - Most Recent: 144 lb 8 oz I&O - Last 24 Hours: Intake & Output 04/29/19 04/30/19 04/30/19 19:59 03:59 11:59 Intake Total 1995 Balance 1995 Lab Results Last 24 Hours: Laboratory Results - last 24 hr 04/29/19 04/29/19 04/29/19 Range/Units 14:15 14:25 14:25 WBC 20.60 H (3.98-10.04) K/mm3 RBC 3.72 L (3.98-5.22) M/mm3 Hgb 10.6 L (11.2-15.7) gm/L Hct 33.1 L (34.1-44.9) % MCV 89.0 (79.4-94.8) fl MCH 28.5 (25.6-32.2) pg MCHC 32.0 L (32.2-35.5) g/dl RDW Std Deviation 46.5 H (36.4-46.3) fL Plt Count 297 D (182-369) K/mm3 MPV 9.5 (9.4-12.3) fl Neut % (Auto) (34.0-71.1) % Lymph % (Auto) (19.3-51.7) % Cecil % (Auto) (4.7-12.5) % Eos % (Auto) (0.7-5.8) Baso % (Auto) (0.1-1.2) % Neut # (Auto) (1.56-6.13) K/mm3 Lymph # (Auto) (1.18-3.74) K/mm3 Cecil # (Auto) (0.24-0.36) K/mm3 Eos # (Auto) (0.04-0.36) K/mm3 Baso # (Auto) (0.01-0.08) K/mm3 Neutrophils % (Manual) 84 H (40-60) % Band Neutrophils % 1 (0-10) % Lymphocytes % (Manual) 12 L (20-40) % Atypical Lymphs % 0 % Monocytes % (Manual) 3 (2-10) % Eosinophils % (Manual) 0 L (0.7-5.8) % Basophils % (Manual) 0 L (0.1-1.2) Manual Slide Review Toxic Granulation 1+ slight Dohle Bodies Few Platelet Estimate Adequate Plt Morphology Comment Normal Hypochromasia 1+ slight Anisocytosis 1+ slight Stomatocytes 1+ slight RBC Morph Comment Not Reportable Puncture Site Lt radial ABG pH 7.54 H (7.35-7.45) ABG pCO2 39.2 (35.0-45.0) mmHg ABG pO2 50.0 L (80.0-100.0) mmHg ABG HCO3 33.5 H (22.0-26.0) meq/L ABG O2 Saturation 87.1 L (96.0-97.0) % ABG Base Excess 10.2 H (-2-2.0) Eric Test Positive O2 Delivery Device Nasal cannula Oxygen Flow Rate 2.0 FiO2 0.00 L (21.00-100.00) % Sodium 137 (136-145) mEq/L Potassium 2.7 L (3.5-5.1) mEq/L Chloride 95 L (98-107) mEq/L Carbon Dioxide 33 H (21-32) mEq/L Anion Gap 11.7 (5-15) BUN 28 H (7-18) mg/dL Creatinine 1.7 H (0.55-1.02) mg/dL Est Cr Clr Drug Dosing 16.75 mL/min Estimated GFR (MDRD) 28 (>60) mL/min BUN/Creatinine Ratio 16.5 (14-18) Glucose 109 (83-115) mg/dL POC Glucose (83-110) mg/dL Lactic Acid (0.4-2.0) mmol/L Calcium 9.4 (8.5-10.1) mg/dL Phosphorus (2.6-4.7) mg/dL Magnesium (1.8-2.4) mg/dl Total Bilirubin 0.6 (0.2-1.0) mg/dL AST 13 L (15-37) U/L ALT 15 (14-59) U/L Alkaline Phosphatase 76 (46-116) U/L C-Reactive Protein 30.1 H* (<1.0) mg/dL Total Protein 7.6 (6.4-8.2) g/dl Albumin 3.1 L (3.4-5.0) g/dl Globulin 4.5 gm/dL Albumin/Globulin Ratio 0.7 L (1-2) Urine Color (Yellow) Urine Appearance (Clear) Urine pH (5.0-8.0) Ur Specific [place] (1.005-1.030) Urine Protein (Negative) Urine Glucose (UA) (Negative) Urine Ketones (Negative) Urine Occult Blood (Negative) Urine Nitrite (Negative) Urine Bilirubin (Negative) Urine Urobilinogen (0.2-1.0) Ur Leukocyte Esterase (Negative) Urine RBC (0-5) /hpf Urine WBC (0-5) /hpf Ur Squamous Epith Cells (0-5) /hpf Urine Bacteria (FEW) /hpf Hyaline Casts (0-5) /lpf Urine Mucus (FEW) /hpf Mycoplasma pneumon IgM (NEGATIVE) MRSA (PCR) 04/29/19 04/29/19 04/29/19 Range/Units 14:25 14:25 16:00 WBC (3.98-10.04) K/mm3 RBC (3.98-5.22) M/mm3 Hgb (11.2-15.7) gm/L Hct (34.1-44.9) % MCV (79.4-94.8) fl MCH (25.6-32.2) pg MCHC (32.2-35.5) g/dl RDW Std Deviation (36.4-46.3) fL Plt Count (182-369) K/mm3 MPV (9.4-12.3) fl Neut % (Auto) (34.0-71.1) % Lymph % (Auto) (19.3-51.7) % Cecil % (Auto) (4.7-12.5) % Eos % (Auto) (0.7-5.8) Baso % (Auto) (0.1-1.2) % Neut # (Auto) (1.56-6.13) K/mm3 Lymph # (Auto) (1.18-3.74) K/mm3 Cecil # (Auto) (0.24-0.36) K/mm3 Eos # (Auto) (0.04-0.36) K/mm3 Baso # (Auto) (0.01-0.08) K/mm3 Neutrophils % (Manual) (40-60) % Band Neutrophils % (0-10) % Lymphocytes % (Manual) (20-40) % Atypical Lymphs % % Monocytes % (Manual) (2-10) % Eosinophils % (Manual) (0.7-5.8) % Basophils % (Manual) (0.1-1.2) Manual Slide Review Toxic Granulation Dohle Bodies Platelet Estimate Plt Morphology Comment Hypochromasia Anisocytosis Stomatocytes RBC Morph Comment Puncture Site ABG pH (7.35-7.45) ABG pCO2 (35.0-45.0) mmHg ABG pO2 (80.0-100.0) mmHg ABG HCO3 (22.0-26.0) meq/L ABG O2 Saturation (96.0-97.0) % ABG Base Excess (-2-2.0) Eric Test O2 Delivery Device Oxygen Flow Rate FiO2 (21.00-100.00) % Sodium (136-145) mEq/L Potassium (3.5-5.1) mEq/L Chloride (98-107) mEq/L Carbon Dioxide (21-32) mEq/L Anion Gap (5-15) BUN (7-18) mg/dL Creatinine (0.55-1.02) mg/dL Est Cr Clr Drug Dosing mL/min Estimated GFR (MDRD) (>60) mL/min BUN/Creatinine Ratio (14-18) Glucose (83-115) mg/dL POC Glucose (83-110) mg/dL Lactic Acid 1.2 (0.4-2.0) mmol/L Calcium (8.5-10.1) mg/dL Phosphorus (2.6-4.7) mg/dL Magnesium 2.3 (1.8-2.4) mg/dl Total Bilirubin (0.2-1.0) mg/dL AST (15-37) U/L ALT (14-59) U/L Alkaline Phosphatase (46-116) U/L C-Reactive Protein (<1.0) mg/dL Total Protein (6.4-8.2) g/dl Albumin (3.4-5.0) g/dl Globulin gm/dL Albumin/Globulin Ratio (1-2) Urine Color Yellow (Yellow) Urine Appearance Clear (Clear) Urine pH 6.5 (5.0-8.0) Ur Specific [place] 1.020 (1.005-1.030) Urine Protein Negative (Negative) Urine Glucose (UA) Negative (Negative) Urine Ketones Negative (Negative) Urine Occult Blood Negative (Negative) Urine Nitrite Negative (Negative) Urine Bilirubin Negative (Negative) Urine Urobilinogen 0.2 (0.2-1.0) Ur Leukocyte Esterase Negative (Negative) Urine RBC Not seen (0-5) /hpf Urine WBC 0-5 (0-5) /hpf Ur Squamous Epith Cells 0-5 (0-5) /hpf Urine Bacteria Few (FEW) /hpf Hyaline Casts 5-10 H (0-5) /lpf Urine Mucus Not seen (FEW) /hpf Mycoplasma pneumon IgM Negative (NEGATIVE) MRSA (PCR) 04/29/19 04/29/19 04/29/19 Range/Units 17:15 18:42 21:19 WBC (3.98-10.04) K/mm3 RBC (3.98-5.22) M/mm3 Hgb (11.2-15.7) gm/L Hct (34.1-44.9) % MCV (79.4-94.8) fl MCH (25.6-32.2) pg MCHC (32.2-35.5) g/dl RDW Std Deviation (36.4-46.3) fL Plt Count (182-369) K/mm3 MPV (9.4-12.3) fl Neut % (Auto) (34.0-71.1) % Lymph % (Auto) (19.3-51.7) % Cecil % (Auto) (4.7-12.5) % Eos % (Auto) (0.7-5.8) Baso % (Auto) (0.1-1.2) % Neut # (Auto) (1.56-6.13) K/mm3 Lymph # (Auto) (1.18-3.74) K/mm3 Cecil # (Auto) (0.24-0.36) K/mm3 Eos # (Auto) (0.04-0.36) K/mm3 Baso # (Auto) (0.01-0.08) K/mm3 Neutrophils % (Manual) (40-60) % Band Neutrophils % (0-10) % Lymphocytes % (Manual) (20-40) % Atypical Lymphs % % Monocytes % (Manual) (2-10) % Eosinophils % (Manual) (0.7-5.8) % Basophils % (Manual) (0.1-1.2) Manual Slide Review Toxic Granulation Dohle Bodies Platelet Estimate Plt Morphology Comment Hypochromasia Anisocytosis Stomatocytes RBC Morph Comment Puncture Site ABG pH (7.35-7.45) ABG pCO2 (35.0-45.0) mmHg ABG pO2 (80.0-100.0) mmHg ABG HCO3 (22.0-26.0) meq/L ABG O2 Saturation (96.0-97.0) % ABG Base Excess (-2-2.0) Eric Test O2 Delivery Device Oxygen Flow Rate FiO2 (21.00-100.00) % Sodium (136-145) mEq/L Potassium (3.5-5.1) mEq/L Chloride (98-107) mEq/L Carbon Dioxide (21-32) mEq/L Anion Gap (5-15) BUN (7-18) mg/dL Creatinine (0.55-1.02) mg/dL Est Cr Clr Drug Dosing mL/min Estimated GFR (MDRD) (>60) mL/min BUN/Creatinine Ratio (14-18) Glucose (83-115) mg/dL POC Glucose 74 L 245 H (83-110) mg/dL Lactic Acid (0.4-2.0) mmol/L Calcium (8.5-10.1) mg/dL Phosphorus (2.6-4.7) mg/dL Magnesium (1.8-2.4) mg/dl Total Bilirubin (0.2-1.0) mg/dL AST (15-37) U/L ALT (14-59) U/L Alkaline Phosphatase (46-116) U/L C-Reactive Protein (<1.0) mg/dL Total Protein (6.4-8.2) g/dl Albumin (3.4-5.0) g/dl Globulin gm/dL Albumin/Globulin Ratio (1-2) Urine Color (Yellow) Urine Appearance (Clear) Urine pH (5.0-8.0) Ur Specific [place] (1.005-1.030) Urine Protein (Negative) Urine Glucose (UA) (Negative) Urine Ketones (Negative) Urine Occult Blood (Negative) Urine Nitrite (Negative) Urine Bilirubin (Negative) Urine Urobilinogen (0.2-1.0) Ur Leukocyte Esterase (Negative) Urine RBC (0-5) /hpf Urine WBC (0-5) /hpf Ur Squamous Epith Cells (0-5) /hpf Urine Bacteria (FEW) /hpf Hyaline Casts (0-5) /lpf Urine Mucus (FEW) /hpf Mycoplasma pneumon IgM (NEGATIVE) MRSA (PCR) Negative 04/30/19 04/30/19 04/30/19 Range/Units 05:50 06:45 09:41 WBC 18.93 H (3.98-10.04) K/mm3 RBC 3.48 L (3.98-5.22) M/mm3 Hgb 9.9 L (11.2-15.7) gm/L Hct 31.4 L (34.1-44.9) % MCV 90.2 (79.4-94.8) fl MCH 28.4 (25.6-32.2) pg MCHC 31.5 L (32.2-35.5) g/dl RDW Std Deviation 46.1 (36.4-46.3) fL Plt Count 289 (182-369) K/mm3 MPV 9.3 L (9.4-12.3) fl Neut % (Auto) 87.5 H (34.0-71.1) % Lymph % (Auto) 7.0 L (19.3-51.7) % Cecil % (Auto) 4.9 (4.7-12.5) % Eos % (Auto) 0.2 L (0.7-5.8) Baso % (Auto) 0.1 (0.1-1.2) % Neut # (Auto) 16.57 H (1.56-6.13) K/mm3 Lymph # (Auto) 1.32 (1.18-3.74) K/mm3 Cecil # (Auto) 0.93 H (0.24-0.36) K/mm3 Eos # (Auto) 0.03 L (0.04-0.36) K/mm3 Baso # (Auto) 0.02 (0.01-0.08) K/mm3 Neutrophils % (Manual) (40-60) % Band Neutrophils % (0-10) % Lymphocytes % (Manual) (20-40) % Atypical Lymphs % % Monocytes % (Manual) (2-10) % Eosinophils % (Manual) (0.7-5.8) % Basophils % (Manual) (0.1-1.2) Manual Slide Review Normal smear Toxic Granulation Dohle Bodies Platelet Estimate Plt Morphology Comment Hypochromasia Anisocytosis Stomatocytes RBC Morph Comment Puncture Site ABG pH (7.35-7.45) ABG pCO2 (35.0-45.0) mmHg ABG pO2 (80.0-100.0) mmHg ABG HCO3 (22.0-26.0) meq/L ABG O2 Saturation (96.0-97.0) % ABG Base Excess (-2-2.0) Eric Test O2 Delivery Device Oxygen Flow Rate FiO2 (21.00-100.00) % Sodium (136-145) mEq/L Potassium (3.5-5.1) mEq/L Chloride (98-107) mEq/L Carbon Dioxide (21-32) mEq/L Anion Gap (5-15) BUN (7-18) mg/dL Creatinine (0.55-1.02) mg/dL Est Cr Clr Drug Dosing mL/min Estimated GFR (MDRD) (>60) mL/min BUN/Creatinine Ratio (14-18) Glucose (83-115) mg/dL POC Glucose 64 L 115 H (83-110) mg/dL Lactic Acid (0.4-2.0) mmol/L Calcium (8.5-10.1) mg/dL Phosphorus (2.6-4.7) mg/dL Magnesium (1.8-2.4) mg/dl Total Bilirubin (0.2-1.0) mg/dL AST (15-37) U/L ALT (14-59) U/L Alkaline Phosphatase (46-116) U/L C-Reactive Protein (<1.0) mg/dL Total Protein (6.4-8.2) g/dl Albumin (3.4-5.0) g/dl Globulin gm/dL Albumin/Globulin Ratio (1-2) Urine Color (Yellow) Urine Appearance (Clear) Urine pH (5.0-8.0) Ur Specific [place] (1.005-1.030) Urine Protein (Negative) Urine Glucose (UA) (Negative) Urine Ketones (Negative) Urine Occult Blood (Negative) Urine Nitrite (Negative) Urine Bilirubin (Negative) Urine Urobilinogen (0.2-1.0) Ur Leukocyte Esterase (Negative) Urine RBC (0-5) /hpf Urine WBC (0-5) /hpf Ur Squamous Epith Cells (0-5) /hpf Urine Bacteria (FEW) /hpf Hyaline Casts (0-5) /lpf Urine Mucus (FEW) /hpf Mycoplasma pneumon IgM (NEGATIVE) MRSA (PCR) 04/30/19 04/30/19 Range/Units 09:41 09:41 WBC (3.98-10.04) K/mm3 RBC (3.98-5.22) M/mm3 Hgb (11.2-15.7) gm/L Hct (34.1-44.9) % MCV (79.4-94.8) fl MCH (25.6-32.2) pg MCHC (32.2-35.5) g/dl RDW Std Deviation (36.4-46.3) fL Plt Count (182-369) K/mm3 MPV (9.4-12.3) fl Neut % (Auto) (34.0-71.1) % Lymph % (Auto) (19.3-51.7) % Cecil % (Auto) (4.7-12.5) % Eos % (Auto) (0.7-5.8) Baso % (Auto) (0.1-1.2) % Neut # (Auto) (1.56-6.13) K/mm3 Lymph # (Auto) (1.18-3.74) K/mm3 Cecil # (Auto) (0.24-0.36) K/mm3 Eos # (Auto) (0.04-0.36) K/mm3 Baso # (Auto) (0.01-0.08) K/mm3 Neutrophils % (Manual) (40-60) % Band Neutrophils % (0-10) % Lymphocytes % (Manual) (20-40) % Atypical Lymphs % % Monocytes % (Manual) (2-10) % Eosinophils % (Manual) (0.7-5.8) % Basophils % (Manual) (0.1-1.2) Manual Slide Review Toxic Granulation Dohle Bodies Platelet Estimate Plt Morphology Comment Hypochromasia Anisocytosis Stomatocytes RBC Morph Comment Puncture Site ABG pH (7.35-7.45) ABG pCO2 (35.0-45.0) mmHg ABG pO2 (80.0-100.0) mmHg ABG HCO3 (22.0-26.0) meq/L ABG O2 Saturation (96.0-97.0) % ABG Base Excess (-2-2.0) Eric Test O2 Delivery Device Oxygen Flow Rate FiO2 (21.00-100.00) % Sodium 139 (136-145) mEq/L Potassium 2.9 L (3.5-5.1) mEq/L Chloride 101 (98-107) mEq/L Carbon Dioxide 30 (21-32) mEq/L Anion Gap 10.9 (5-15) BUN 22 H (7-18) mg/dL Creatinine 1.6 H (0.55-1.02) mg/dL Est Cr Clr Drug Dosing 17.79 mL/min Estimated GFR (MDRD) 30 (>60) mL/min BUN/Creatinine Ratio 13.8 L (14-18) Glucose 131 H (83-115) mg/dL POC Glucose (83-110) mg/dL Lactic Acid 1.2 (0.4-2.0) mmol/L Calcium 8.6 (8.5-10.1) mg/dL Phosphorus 2.3 L (2.6-4.7) mg/dL Magnesium 2.1 (1.8-2.4) mg/dl Total Bilirubin (0.2-1.0) mg/dL AST (15-37) U/L ALT (14-59) U/L Alkaline Phosphatase (46-116) U/L C-Reactive Protein (<1.0) mg/dL Total Protein (6.4-8.2) g/dl Albumin (3.4-5.0) g/dl Globulin gm/dL Albumin/Globulin Ratio (1-2) Urine Color (Yellow) Urine Appearance (Clear) Urine pH (5.0-8.0) Ur Specific [place] (1.005-1.030) Urine Protein (Negative) Urine Glucose (UA) (Negative) Urine Ketones (Negative) Urine Occult Blood (Negative) Urine Nitrite (Negative) Urine Bilirubin (Negative) Urine Urobilinogen (0.2-1.0) Ur Leukocyte Esterase (Negative) Urine RBC (0-5) /hpf Urine WBC (0-5) /hpf Ur Squamous Epith Cells (0-5) /hpf Urine Bacteria (FEW) /hpf Hyaline Casts (0-5) /lpf Urine Mucus (FEW) /hpf Mycoplasma pneumon IgM (NEGATIVE) MRSA (PCR) Med Orders - Current: Current Medications Acetaminophen (Tylenol) 975 mg PO Q6H PRN PRN Reason: Pain Aspirin (Halfprin) 81 mg PO DAILY [facility] Last Admin: 04/30/19 10:10 Dose: 81 mg Cholecalciferol (Vitamin D3) 1,000 units PO BEDTIME [facility] Last Admin: 04/29/19 21:14 Dose: 1,000 units Clopidogrel Bisulfate (Plavix) 75 mg PO BEDTIME [facility] Last Admin: 04/29/19 21:15 Dose: 75 mg Fentanyl (Duragesic) 12 mcg TRDERM Q72H [facility] Gabapentin (Neurontin) 300 mg PO TID [facility] Last Admin: 04/30/19 10:10 Dose: 300 mg Azithromycin 500 mg/ Sodium (Chloride) 250 mls @ 250 mls/hr IV Q24H [facility] Last Admin: 04/29/19 19:55 Dose: 250 mls/hr Sodium Chloride (Normal Saline) 1,000 mls @ 100 mls/hr IV ASDIRECTED [facility] Last Admin: 04/30/19 00:08 Dose: 100 mls/hr Piperacillin Sod/Tazobactam (Sod 4.5 gm/ Sodium Chloride) 100 mls @ 25 mls/hr IV Q12H [facility] Last Admin: 04/30/19 09:51 Dose: 25 mls/hr Insulin Human Lispro (Humalog) 0 unit SUBCUT QIDACANDBED [facility]; Protocol Last Admin: 04/30/19 07:07 Dose: Not Given Metoprolol Succinate (Toprol Xl) 50 mg PO DAILY [facility] Last Admin: 04/30/19 09:52 Dose: 50 mg Rivaroxaban (Xarelto) 15 mg PO DAILY [facility] Last Admin: 04/30/19 10:10 Dose: 15 mg Saccharomyces Boulardii (Florastor) 250 mg PO BID [facility] Senna/Docusate Sodium (Senna Plus) 1 tab PO DAILY PRN PRN Reason: Constipation Sodium Chloride (Saline Flush) 10 ml FLUSH ASDIRECTED PRN PRN Reason: Keep Vein Open Last Admin: 04/29/19 14:46 Dose: 10 ml Vancomycin HCl (Pharmacy To Dose - Vancomycin) 0 dose .XX DAILY PRN PRN Reason: RX TO DOSE VANCO Discontinued Medications Cholecalciferol (Vitamin D3) 1,000 units PO DAILY [facility] Last Admin: 04/29/19 21:18 Dose: Not Given Ceftriaxone Sodium 2 gm/ (Sodium Chloride) 100 mls @ 200 mls/hr IV NOW STA Stop: 04/29/19 15:15 Last Admin: 04/29/19 16:10 Dose: 200 mls/hr Sodium Chloride (Normal Saline) 1,000 mls @ 500 mls/hr IV ONETIME ONE Stop: 04/29/19 16:46 Last Admin: 04/29/19 16:09 Dose: 500 mls/hr Vancomycin HCl 1 gm/Vancomycin HCl 250 mg/ Sodium Chloride 250 mls @ 100 mls/ hr IV ONETIME ONE Stop: 04/29/19 20:26 Last Admin: 04/29/19 21:16 Dose: 100 mls/hr Sodium Chloride (Normal Saline) Confirm Administered Dose 100 mls @ as directed .ROUTE .STK-MED ONE Stop: 04/29/19 18:55 Last Admin: 04/29/19 19:59 Dose: Not Given Piperacillin Sod/Tazobactam (Sod 4.5 gm/ Sodium Chloride) 100 mls @ 200 mls/hr IV ONETIME ONE Stop: 04/29/19 19:44 Last Admin: 04/29/19 19:19 Dose: 200 mls/hr Piperacillin Sod/Tazobactam Sod (Piperacil-Tazobact) Confirm Administered Dose 4.5 gm .ROUTE .STK-MED ONE Stop: 04/30/19 09:30 Potassium Chloride (Klor-Con M20) 40 meq PO ONETIME ONE Stop: 04/29/19 15:38 Last Admin: 04/29/19 16:11 Dose: 40 meq Potassium Chloride (Klor-Con M20) 60 meq PO ONETIME ONE Stop: 04/30/19 10:35 - Exam Physical Findings Comments:: General: Alert, Oriented, Cooperative HEENT: Conjunctiva Clear, Nares Patent Neck: Supple, Trachea Midline Lungs: Decreased Breath Sounds, Crackles Cardiovascular: Regular Rate, Normal S1, Normal S2 GI/Abdominal Exam: Soft, Non-Tender, No Distention Extremities: No Pedal Edema Peripheral Pulses: 2+: Dorsalis Pedis (L), Dorsalis Pedis (R) Skin: Warm, Dry Neuro Extensive - Motor, Sensory, Reflexes: CN II-XII Intact. No: Motor/ Sensory Deficits - Problem List & Annotations (1) Pneumonia SNOMED Code(s): 837615481 Code(s): J18.9 - PNEUMONIA, UNSPECIFIED ORGANISM Status: Acute Priority: High Current Visit: Yes Qualifiers: Pneumonia type: due to unspecified organism Laterality: left Lung location: unspecified part of lung Qualified Code(s): J18.9 - Pneumonia, unspecified organism (2) Sciatica neuralgia SNOMED Code(s): 07521131 Code(s): M54.30 - SCIATICA, UNSPECIFIED SIDE Status: Acute Current Visit : Yes - Problem List Review Problem List Initiated/Reviewed/Updated: Yes - My Orders Last 24 Hours: My Active Orders 04/29/19 16:00 LEGIONELLA ANTIGEN [MREF] Urgent 04/29/19 17:53 Docusate Sodium/Sennosides [Senna Plus] 1 tab PO DAILY PRN 04/29/19 17:57 Blood Glucose Check, Bedside [RC] WITHMEALSANDBED Pulse Oximetry [RC] .PRN 04/29/19 18:00 Azithromycin [Zithromax] 500 mg Sodium Chloride 0.9% [Normal Saline] 250 ml IV Q24H Sodium Chloride 0.9% [Normal Saline] 1,000 ml IV ASDIRECTED 04/29/19 18:03 Height and Weight [RC] 04 Vital Signs [RC] Q4HR 04/29/19 18:04 Intake and Output [RC] 04,16 04/29/19 18:11 Resuscitation Status Routine 04/29/19 18:55 LEGIONELLA PNEUMOPHILA 1-6,IGM [REF] Urgent 04/29/19 19:52 Acetaminophen [Tylenol] 975 mg PO Q6H PRN 04/29/19 21:00 Cholecalciferol (Vitamin D3) [Vitamin D3] 1,000 units PO BEDTIME Clopidogrel [Plavix] 75 mg PO BEDTIME Gabapentin [Neurontin] 300 mg PO TID 04/29/19 22:00 Insulin Lispro [HumaLOG] See Protocol SUBCUT QIDACANDBED 04/29/19 Dinner Consistent Carbohydrate Diet [DIET] 04/30/19 09:00 Aspirin [Halfprin] 81 mg PO DAILY Metoprolol Succinate [Toprol XL] 50 mg PO DAILY Piperacillin/Tazobactam [Piperacil-Tazobact] 4.5 gm Sodium Chloride 0.9% [ Normal Saline] 100 ml IV Q12H Rivaroxaban [Xarelto] 15 mg PO DAILY 04/30/19 10:27 PT Evaluation and Treatment [CONS] Routine 04/30/19 10:28 C DIFFICILE BY PCR W/NAP1 [MOLEC] Routine Isolation [COMM] Stat 04/30/19 10:30 Saccharomyces Boulardii [Florastor] 250 mg PO BID 04/30/19 10:35 Up With Assistance [RC] BID 04/30/19 10:48 Pharmacy to Dose - Vancomycin 0 dose .XX DAILY PRN 04/30/19 11:09 fentaNYL [Duragesic] 12 mcg TRDERM Q72H 05/01/19 05:00 MAGNESIUM [CHEM] AM PHOSPHORUS [CHEM] AM 05/01/19 05:11 BMP [BASIC METABOLIC PANEL,BMP] [CHEM] AM CBC WITH AUTO DIFF [HEME] AM - Plan Plan:: 1. Empiric azithromycin, vancomycin and Zosyn, has h/o MRSA. 2. `DVTP - on Xarelto. 3. Added fentanyl patch.
[2019-04-30] MEDS: Saccharomyces Boulardii (Probiotic) 250 MG Cap PO SCH ×2 (12:13→21:30)
[2019-04-30] MEDS: fentaNYL 12 MCG/HR Transdermal Patch TRDERM SCH (12:55)
[2019-04-30] MEDS: Azithromycin 500 MG in Sodium Chloride 0.9% 250 ML IV SCH (17:44)
[2019-04-30] MEDS ORDERED: Furosemide 40 MG/4 ML VIAL IVPUSH ONE (18:41)
[2019-04-30] MEDS: Cholecalciferol (Vitamin D3) 1,000 Unit Tab PO SCH (21:30)
[2019-04-30] MEDS: Clopidogrel 75 MG Tab PO SCH (21:30)
[2019-04-30] MEDS: Acetaminophen 325 MG Tab PO PRN (21:51)
[2019-05-01] MEDS: Piperacillin/Tazobactam 4.5 GM in Sodium Chloride 0.9% 100 ML IV SCH ×3 (00:41→23:10)
[2019-05-01] MEDS: Potassium Chloride 10 MEQ in Premix Bag 1 BAG IV SCH ×3 (08:57→13:20)
[2019-05-01] MEDS: Insulin Lispro 100 Units/ML 3 ML Vial SUBCUT SCH ×4 (09:09→22:12)
[2019-05-01] MEDS: Rivaroxaban 10 MG Tab PO SCH (09:13)
[2019-05-01] MEDS: Metoprolol Succinate 50 MG Tab.ER PO SCH (09:18)
[2019-05-01] MEDS: Aspirin 81 MG Tab.EC PO SCH (09:19)
[2019-05-01] MEDS: Saccharomyces Boulardii (Probiotic) 250 MG Cap PO SCH ×3 (09:20→20:20)
[2019-05-01] MEDS: Gabapentin 300 MG Cap PO SCH ×4 (09:20→20:20)
[2019-05-01] MEDS ORDERED: Albuterol/Ipratropium 3.0-0.5 MG/3 ML Neb Soln NEB PRN (10:42)
[2019-05-01] MEDS ORDERED: Potassium Chloride 10% 20 MEQ/15 ML Soln 15 ML UD Cup PO ONE (12:00)
--- NOTE | 2019-05-01 13:31 | PCM.PN ---
- General Info Date of Service: 05/01/19 Admission Dx/Problem (Free Text): 88 yo with chronic back pain, DMII, CHF admitted from ED after several days of fatigue, cough, hypoxemia, fever. CXR reveals bilteral interstitial infiltrates , somewhat improved since previous admission. Had several admissions with similar presentation. Admitted as IP for further treatment. 04/30/2019, clinically better, has severe debilitating sciatica pain, will start trial of low dose fentanyl patch. 05/01/2019, pain is much better controlled with Duragesic, clinically better, very difficult to communicate, responds with delay and much reluctance, FiO2 requirements increased, will continue judicial diuresis, O2, IS. - Review of Systems Systems Review Comment:: General: Reports: no Fever, Chills, less Weakness, Fatigue HEENT: Denies: Dysphasia, Rhinitis, Post Nasal Drip Pulmonary: Reports: Shortness of Breath, Cough. Denies: Wheezing, Hemoptysis Cardiovascular: Reports: Dyspnea on Exertion. Denies: Chest Pain, Palpitations Gastrointestinal: Denies: Abdominal Pain, Anorexia, Hematemesis, Hematochezia Genitourinary: Reports: Incontinence. Denies: Dysuria, Frequency Musculoskeletal: Reports: Back Pain Skin: Denies: Cyanosis, Jaundice Psychiatric: Denies: Suicidal Ideation Neurological: Denies: Seizure, Syncope Hematologic/Lymphatic: Denies: Easy Bleeding, Easy Bruising - Patient Data Vitals - Most Recent: Last Vital Signs Temp 97.7 F 05/01/19 04:32 Pulse 79 05/01/19 09:18 Resp 20 05/01/19 04:32 BP 107/79 05/01/19 09:18 Pulse Ox 90 L 05/01/19 11:43 Weight - Most Recent: 150 lb 6.4 oz I&O - Last 24 Hours: Intake & Output 05/01/19 05/01/19 05/01/19 03:59 11:59 19:59 Intake Total 570 Balance 570 Lab Results Last 24 Hours: Laboratory Results - last 24 hr 04/30/19 04/30/19 05/01/19 Range/Units 17:39 21:40 04:51 WBC (3.98-10.04) K/mm3 RBC (3.98-5.22) M/mm3 Hgb (11.2-15.7) gm/L Hct (34.1-44.9) % MCV (79.4-94.8) fl MCH (25.6-32.2) pg MCHC (32.2-35.5) g/dl RDW Std Deviation (36.4-46.3) fL Plt Count (182-369) K/mm3 MPV (9.4-12.3) fl Neut % (Auto) (34.0-71.1) % Lymph % (Auto) (19.3-51.7) % [place] % (Auto) (4.7-12.5) % Eos % (Auto) (0.7-5.8) Baso % (Auto) (0.1-1.2) % Neut # (Auto) (1.56-6.13) K/mm3 Lymph # (Auto) (1.18-3.74) K/mm3 [place] # (Auto) (0.24-0.36) K/mm3 Eos # (Auto) (0.04-0.36) K/mm3 Baso # (Auto) (0.01-0.08) K/mm3 Manual Slide Review Sodium (136-145) mEq/L Potassium (3.5-5.1) mEq/L Chloride (98-107) mEq/L Carbon Dioxide (21-32) mEq/L Anion Gap (5-15) BUN (7-18) mg/dL Creatinine (0.55-1.02) mg/dL Est Cr Clr Drug Dosing mL/min Estimated GFR (MDRD) (>60) mL/min BUN/Creatinine Ratio (14-18) Glucose (83-115) mg/dL POC Glucose 239 H 226 H (83-110) mg/dL Calcium (8.5-10.1) mg/dL Phosphorus 3.0 (2.6-4.7) mg/dL Magnesium 2.0 (1.8-2.4) mg/dl TSH 3rd Generation (0.358-3.74) uIU/mL 05/01/19 05/01/19 05/01/19 Range/Units 04:51 04:51 06:20 WBC 14.90 H (3.98-10.04) K/mm3 RBC 2.93 L (3.98-5.22) M/mm3 Hgb 8.1 L D (11.2-15.7) gm/L Hct 26.7 L (34.1-44.9) % MCV 91.1 (79.4-94.8) fl MCH 27.6 (25.6-32.2) pg MCHC 30.3 L (32.2-35.5) g/dl RDW Std Deviation 45.9 (36.4-46.3) fL Plt Count 241 (182-369) K/mm3 MPV 10.2 (9.4-12.3) fl Neut % (Auto) 84.0 H (34.0-71.1) % Lymph % (Auto) 9.3 L (19.3-51.7) % [place] % (Auto) 6.0 (4.7-12.5) % Eos % (Auto) 0.3 L (0.7-5.8) Baso % (Auto) 0.1 (0.1-1.2) % Neut # (Auto) 12.51 H (1.56-6.13) K/mm3 Lymph # (Auto) 1.39 (1.18-3.74) K/mm3 [place] # (Auto) 0.90 H (0.24-0.36) K/mm3 Eos # (Auto) 0.04 (0.04-0.36) K/mm3 Baso # (Auto) 0.02 (0.01-0.08) K/mm3 Manual Slide Review Normal smear Sodium 140 (136-145) mEq/L Potassium 3.0 L (3.5-5.1) mEq/L Chloride 102 (98-107) mEq/L Carbon Dioxide 28 (21-32) mEq/L Anion Gap 13.0 (5-15) BUN 21 H (7-18) mg/dL Creatinine 1.8 H (0.55-1.02) mg/dL Est Cr Clr Drug Dosing 15.82 mL/min Estimated GFR (MDRD) 27 (>60) mL/min BUN/Creatinine Ratio 11.7 L (14-18) Glucose 206 H (83-115) mg/dL POC Glucose 235 H (83-110) mg/dL Calcium 8.2 L (8.5-10.1) mg/dL Phosphorus (2.6-4.7) mg/dL Magnesium (1.8-2.4) mg/dl TSH 3rd Generation 1.800 (0.358-3.74) uIU/mL 05/01/19 Range/Units 11:22 WBC (3.98-10.04) K/mm3 RBC (3.98-5.22) M/mm3 Hgb (11.2-15.7) gm/L Hct (34.1-44.9) % MCV (79.4-94.8) fl MCH (25.6-32.2) pg MCHC (32.2-35.5) g/dl RDW Std Deviation (36.4-46.3) fL Plt Count (182-369) K/mm3 MPV (9.4-12.3) fl Neut % (Auto) (34.0-71.1) % Lymph % (Auto) (19.3-51.7) % [place] % (Auto) (4.7-12.5) % Eos % (Auto) (0.7-5.8) Baso % (Auto) (0.1-1.2) % Neut # (Auto) (1.56-6.13) K/mm3 Lymph # (Auto) (1.18-3.74) K/mm3 [place] # (Auto) (0.24-0.36) K/mm3 Eos # (Auto) (0.04-0.36) K/mm3 Baso # (Auto) (0.01-0.08) K/mm3 Manual Slide Review Sodium (136-145) mEq/L Potassium (3.5-5.1) mEq/L Chloride (98-107) mEq/L Carbon Dioxide (21-32) mEq/L Anion Gap (5-15) BUN (7-18) mg/dL Creatinine (0.55-1.02) mg/dL Est Cr Clr Drug Dosing mL/min Estimated GFR (MDRD) (>60) mL/min BUN/Creatinine Ratio (14-18) Glucose (83-115) mg/dL POC Glucose 309 H (83-110) mg/dL Calcium (8.5-10.1) mg/dL Phosphorus (2.6-4.7) mg/dL Magnesium (1.8-2.4) mg/dl TSH 3rd Generation (0.358-3.74) uIU/mL Octavio Results Last 24 Hours: Microbiology 04/29/19 16:00 Legionella Urinary Antigen - Final Urine 04/29/19 14:30 Aerobic Blood Culture - Preliminary Blood NO GROWTH AFTER 1 DAY Anaerobic Blood Culture - Preliminary NO GROWTH AFTER 1 DAY 04/29/19 14:25 Aerobic Blood Culture - Preliminary Blood NO GROWTH AFTER 1 DAY Anaerobic Blood Culture - Preliminary NO GROWTH AFTER 1 DAY Med Orders - Current: Current Medications Acetaminophen (Tylenol) 975 mg PO Q6H PRN PRN Reason: Pain Last Admin: 04/30/19 21:51 Dose: 975 mg Albuterol/Ipratropium (Duoneb 3.0-0.5 Mg/3 Ml) 3 ml NEB Q4HRRT PRN PRN Reason: sob/wheezing Last Admin: 05/01/19 11:43 Dose: 3 ml Aspirin (Halfprin) 81 mg PO DAILY [facility] Last Admin: 05/01/19 09:19 Dose: 81 mg Cholecalciferol (Vitamin D3) 1,000 units PO BEDTIME [facility] Last Admin: 04/30/19 21:30 Dose: 1,000 units Clopidogrel Bisulfate (Plavix) 75 mg PO BEDTIME [facility] Last Admin: 04/30/19 21:30 Dose: 75 mg Fentanyl (Duragesic) 12 mcg TRDERM Q72H [facility] Last Admin: 04/30/19 12:55 Dose: 12 mcg Gabapentin (Neurontin) 300 mg PO TID [facility] Last Admin: 05/01/19 11:28 Dose: Not Given Azithromycin 500 mg/ Sodium (Chloride) 250 mls @ 250 mls/hr IV Q24H [facility] Last Admin: 04/30/19 17:44 Dose: 250 mls/hr Vancomycin HCl 1 gm/ Sodium (Chloride) 250 mls @ 250 mls/hr IV Q24H [facility] Last Admin: 04/30/19 21:31 Dose: 250 mls/hr Piperacillin Sod/Tazobactam (Sod 4.5 gm/ Sodium Chloride) 100 mls @ 25 mls/hr IV Q12H [facility] Last Admin: 05/01/19 09:00 Dose: 25 mls/hr Insulin Human Lispro (Humalog) 0 unit SUBCUT QIDACANDBED [facility]; Protocol Last Admin: 05/01/19 11:25 Dose: 12 unit Metoprolol Succinate (Toprol Xl) 50 mg PO DAILY [facility] Last Admin: 05/01/19 09:18 Dose: 50 mg Miscellaneous Information (Remove Patch) 1 ea TRDERM Q72H [facility] Rivaroxaban (Xarelto) 15 mg PO DAILY [facility] Last Admin: 05/01/19 09:13 Dose: 15 mg Saccharomyces Boulardii (Florastor) 250 mg PO BID [facility] Last Admin: 05/01/19 10:28 Dose: Not Given Senna/Docusate Sodium (Senna Plus) 1 tab PO DAILY PRN PRN Reason: Constipation Sodium Chloride (Saline Flush) 10 ml FLUSH ASDIRECTED PRN PRN Reason: Keep Vein Open Last Admin: 04/29/19 14:46 Dose: 10 ml Vancomycin HCl (Pharmacy To Dose - Vancomycin) 0 dose .XX DAILY PRN PRN Reason: RX TO DOSE VANCO Discontinued Medications Cholecalciferol (Vitamin D3) 1,000 units PO DAILY [facility] Last Admin: 04/29/19 21:18 Dose: Not Given Furosemide (Lasix) 40 mg IVPUSH NOW ONE Stop: 04/30/19 18:42 Last Admin: 04/30/19 19:24 Dose: 40 mg Ceftriaxone Sodium 2 gm/ (Sodium Chloride) 100 mls @ 200 mls/hr IV NOW STA Stop: 04/29/19 15:15 Last Admin: 04/29/19 16:10 Dose: 200 mls/hr Sodium Chloride (Normal Saline) 1,000 mls @ 500 mls/hr IV ONETIME ONE Stop: 04/29/19 16:46 Last Admin: 04/29/19 16:09 Dose: 500 mls/hr Sodium Chloride (Normal Saline) 1,000 mls @ 100 mls/hr IV ASDIRECTED [facility] Last Admin: 04/30/19 10:09 Dose: 100 mls/hr Vancomycin HCl 1 gm/Vancomycin HCl 250 mg/ Sodium Chloride 250 mls @ 100 mls/ hr IV ONETIME ONE Stop: 04/29/19 20:26 Last Admin: 04/29/19 21:16 Dose: 100 mls/hr Piperacillin Sod/Tazobactam (Sod 4.5 gm/ Sodium Chloride) 100 mls @ 25 mls/hr IV Q12H [facility] Last Admin: 04/30/19 09:51 Dose: 25 mls/hr Sodium Chloride (Normal Saline) Confirm Administered Dose 100 mls @ as directed .ROUTE .STK-MED ONE Stop: 04/29/19 18:55 Last Admin: 04/29/19 19:59 Dose: Not Given Piperacillin Sod/Tazobactam (Sod 4.5 gm/ Sodium Chloride) 100 mls @ 200 mls/hr IV ONETIME ONE Stop: 04/29/19 19:44 Last Admin: 04/29/19 19:19 Dose: 200 mls/hr Potassium Chloride 10 meq/ (Premix) 100 mls @ 100 mls/hr IV Q1H [facility] Stop: 05/01/19 11:59 Last Admin: 05/01/19 13:20 Dose: Not Given Piperacillin Sod/Tazobactam Sod (Piperacil-Tazobact) Confirm Administered Dose 4.5 gm .ROUTE .STK-MED ONE Stop: 04/30/19 09:30 Last Admin: 04/30/19 12:13 Dose: Not Given Potassium Chloride (Klor-Con M20) 40 meq PO ONETIME ONE Stop: 04/29/19 15:38 Last Admin: 04/29/19 16:11 Dose: 40 meq Potassium Chloride (Klor-Con M20) 60 meq PO ONETIME ONE Stop: 04/30/19 10:35 Last Admin: 04/30/19 12:13 Dose: 60 meq Potassium Chloride (Potassium Chloride Solution) 60 meq PO ONETIME ONE Stop: 05/01/19 12:01 Last Admin: 05/01/19 11:27 Dose: 60 meq - Exam Physical Findings Comments:: General: Alert, Oriented, Cooperative HEENT: Conjunctiva Clear, Nares Patent Neck: Supple, Trachea Midline Lungs: Decreased Breath Sounds, Crackles Cardiovascular: Regular Rate, Normal S1, Normal S2 GI/Abdominal Exam: Soft, Non-Tender, No Distention Extremities: No Pedal Edema Peripheral Pulses: 2+: Dorsalis Pedis (L), Dorsalis Pedis (R) Skin: Warm, Dry Neuro Extensive - Motor, Sensory, Reflexes: CN II-XII Intact. No: Motor/ Sensory Deficits - Problem List & Annotations (1) Pneumonia SNOMED Code(s): 670809325 Code(s): J18.9 - PNEUMONIA, UNSPECIFIED ORGANISM Status: Acute Priority: High Current Visit: Yes Qualifiers: Pneumonia type: due to unspecified organism Laterality: left Lung location: unspecified part of lung Qualified Code(s): J18.9 - Pneumonia, unspecified organism (2) Sciatica neuralgia SNOMED Code(s): 55719678 Code(s): M54.30 - SCIATICA, UNSPECIFIED SIDE Status: Acute Current Visit : Yes - Problem List Review Problem List Initiated/Reviewed/Updated: Yes - My Orders Last 24 Hours: My Active Orders 04/30/19 21:00 Vancomycin 1 gm Sodium Chloride 0.9% [Normal Saline] 250 ml IV Q24H 04/30/19 22:00 Piperacillin/Tazobactam [Piperacil-Tazobact] 4.5 gm Sodium Chloride 0.9% [ Normal Saline] 100 ml IV Q12H 05/01/19 10:42 Albuterol/Ipratropium [DuoNeb 3.0-0.5 MG/3 ML] 3 ml NEB Q4HRRT PRN 05/01/19 10:43 Acapella [RT Chest Physiotherapy] [RC] ASDIRECTED Incentive Spirometry [RT Incentive Spirometry] [RC] ASDIRECTED RT Aerosol Therapy [RC] ASDIRECTED 05/01/19 13:25 CULTURE SPUTUM + SMEAR [RM] Routine 05/01/19 20:30 VANCOMYCIN TROUGH [CHEM] Timed 05/03/19 12:00 Remove Patch 1 ea TRDERM Q72H - Plan Plan:: 1. Empiric azithromycin, vancomycin and Zosyn, has h/o MRSA. 2. `DVTP - on Xarelto. 3. Added fentanyl patch. 4. Increasing O2 requirements and WOB, judicial diuresis.
[2019-05-01] MEDS ORDERED: Furosemide 40 MG/4 ML VIAL IVPUSH ONE (13:34)
[2019-05-01] MEDS: Azithromycin 500 MG in Sodium Chloride 0.9% 250 ML IV SCH (17:18)
[2019-05-01] MEDS: Cholecalciferol (Vitamin D3) 1,000 Unit Tab PO SCH (20:19)
[2019-05-01] MEDS: Clopidogrel 75 MG Tab PO SCH (20:20)
[2019-05-02] MEDS: Insulin Lispro 100 Units/ML 3 ML Vial SUBCUT SCH ×4 (08:28→21:47)
[2019-05-02] MEDS: Saccharomyces Boulardii (Probiotic) 250 MG Cap PO SCH ×2 (08:29→21:45)
[2019-05-02] MEDS: Gabapentin 300 MG Cap PO SCH ×3 (08:29→21:46)
[2019-05-02] MEDS: Aspirin 81 MG Tab.EC PO SCH (08:29)
[2019-05-02] MEDS: Rivaroxaban 10 MG Tab PO SCH (08:30)
[2019-05-02] MEDS: Metoprolol Succinate 50 MG Tab.ER PO SCH (08:35)
--- NOTE | 2019-05-02 09:04 | CR ---
Chest: Portable view of the chest was obtained. Comparison: Prior chest x-ray of 04/30/19. Left-sided perihilar parenchymal densities are seen which are both alveolar and interstitial. Findings are fairly stable from previous exam. Mild increasing parenchymal change noted within the right upper perihilar region as an interval change from prior exam. Other findings within the right lung are stable from previous study. Heart size at the upper limits of normal. Scoliosis is noted within the spine. Bony structures are osteopenic. Impression: 1. Slight increasing density within the right upper perihilar region from prior exam. Differential includes worsening pulmonary vascular congestion as well as pneumonia. 2. Other portions of the chest are felt to be stable. Diagnostic code #3
[2019-05-02] MEDS: Piperacillin/Tazobactam 4.5 GM in Sodium Chloride 0.9% 100 ML IV SCH ×2 (10:02→21:47)
[2019-05-02] MEDS: Albuterol/Ipratropium 3.0-0.5 MG/3 ML Neb Soln NEB SCH ×2 (15:27→20:08)
[2019-05-02] MEDS: Potassium Chloride 20 MEQ Tab.ER PO SCH ×2 (16:04→21:46)
--- NOTE | 2019-05-02 20:56 | PCM.PN ---
- General Info Date of Service: 05/02/19 Admission Dx/Problem (Free Text): 88 yo with chronic back pain, DMII, CHF admitted from ED after several days of fatigue, cough, hypoxemia, fever. CXR reveals bilteral interstitial infiltrates, i/os -800 o2 5 liters n.c feels better eating better / less sob but slept only fair pain left arm better iv site okay lungs decreased bs lft base / few crackles cor rrrn abd benign ext. gross edema 2 plus loss muscle neuro grossly intact and weak ms arthritis extensive osteoporosis posture in bed lab reviewed hgn 9.6 bnp 2345 k 3.0 mg 1.8 na 135 creat 1.6 gfr 40 xray infiltrates little change and left pleural effusion unchanged / mild vasc congestion Functional Status: Reports: Pain Controlled, Tolerating Diet - Review of Systems General: Reports: No Symptoms, Weakness, Fatigue HEENT: Reports: No Symptoms Pulmonary: Reports: Shortness of Breath Cardiovascular: Reports: No Symptoms, Dyspnea on Exertion Gastrointestinal: Reports: No Symptoms Genitourinary: Reports: No Symptoms Musculoskeletal: Reports: No Symptoms Skin: Reports: No Symptoms, Pallor, Bruising Neurological: Reports: No Symptoms Psychiatric: Reports: No Symptoms - Patient Data Vitals - Most Recent: Last Vital Signs Temp 36.7 C 05/02/19 16:01 Pulse 78 05/02/19 16:01 Resp 22 H 05/02/19 16:01 BP 110/44 L 05/02/19 16:01 Pulse Ox 91 L 05/02/19 20:09 Weight - Most Recent: 67.676 kg I&O - Last 24 Hours: Intake & Output 05/02/19 05/02/19 05/02/19 06:59 14:59 22:59 Intake Total 1239 920 Output Total 550 50 Balance 689 870 Lab Results Last 24 Hours: Laboratory Results - last 24 hr 05/01/19 05/02/19 05/02/19 Range/Units 21:20 05:00 05:30 WBC (3.98-10.04) K/mm3 RBC (3.98-5.22) M/mm3 Hgb (11.2-15.7) gm/L Hct (34.1-44.9) % MCV (79.4-94.8) fl MCH (25.6-32.2) pg MCHC (32.2-35.5) g/dl RDW Std Deviation (36.4-46.3) fL Plt Count (182-369) K/mm3 MPV (9.4-12.3) fl Neut % (Auto) (34.0-71.1) % Lymph % (Auto) (19.3-51.7) % Mcmullen % (Auto) (4.7-12.5) % Eos % (Auto) (0.7-5.8) Baso % (Auto) (0.1-1.2) % Neut # (Auto) (1.56-6.13) K/mm3 Lymph # (Auto) (1.18-3.74) K/mm3 Mcmullen # (Auto) (0.24-0.36) K/mm3 Eos # (Auto) (0.04-0.36) K/mm3 Baso # (Auto) (0.01-0.08) K/mm3 Puncture Site Rt radial ABG pH 7.49 H (7.35-7.45) ABG pCO2 38.5 (35.0-45.0) mmHg ABG pO2 60.0 L (80.0-100.0) mmHg ABG HCO3 29.2 H (22.0-26.0) meq/L ABG O2 Saturation 91.8 L (96.0-97.0) % ABG Base Excess 5.8 H (-2-2.0) Eric Test Positive A-a Gradient 148 mmHg O2 Delivery Device Nasal cannula Oxygen Flow Rate 5.0 FiO2 40.00 (21.00-100.00) % Sodium (136-145) mEq/L Potassium (3.5-5.1) mEq/L Chloride (98-107) mEq/L Carbon Dioxide (21-32) mEq/L Anion Gap (5-15) BUN (7-18) mg/dL Creatinine (0.55-1.02) mg/dL Est Cr Clr Drug Dosing mL/min Estimated GFR (MDRD) (>60) mL/min BUN/Creatinine Ratio (14-18) Glucose (83-115) mg/dL POC Glucose (83-110) mg/dL Lactic Acid (0.4-2.0) mmol/L Calcium (8.5-10.1) mg/dL Phosphorus 2.8 (2.6-4.7) mg/dL Magnesium 1.8 (1.8-2.4) mg/dl Iron (50-170) ug/dL TIBC (100-400) ug/dL % Saturation (20-55) % Transferrin (202-364) mg/dL Troponin I (0.00-0.056) ng/mL C-Reactive Protein (<1.0) mg/dL NT-Pro-B Natriuret Pep (0-450) pg/mL Vancomycin Trough 14.5 (10.0-20.0) 05/02/19 05/02/19 05/02/19 Range/Units 05:30 05:30 05:30 WBC (3.98-10.04) K/mm3 RBC (3.98-5.22) M/mm3 Hgb (11.2-15.7) gm/L Hct (34.1-44.9) % MCV (79.4-94.8) fl MCH (25.6-32.2) pg MCHC (32.2-35.5) g/dl RDW Std Deviation (36.4-46.3) fL Plt Count (182-369) K/mm3 MPV (9.4-12.3) fl Neut % (Auto) (34.0-71.1) % Lymph % (Auto) (19.3-51.7) % Mcmullen % (Auto) (4.7-12.5) % Eos % (Auto) (0.7-5.8) Baso % (Auto) (0.1-1.2) % Neut # (Auto) (1.56-6.13) K/mm3 Lymph # (Auto) (1.18-3.74) K/mm3 Mcmullen # (Auto) (0.24-0.36) K/mm3 Eos # (Auto) (0.04-0.36) K/mm3 Baso # (Auto) (0.01-0.08) K/mm3 Puncture Site ABG pH (7.35-7.45) ABG pCO2 (35.0-45.0) mmHg ABG pO2 (80.0-100.0) mmHg ABG HCO3 (22.0-26.0) meq/L ABG O2 Saturation (96.0-97.0) % ABG Base Excess (-2-2.0) Eric Test A-a Gradient mmHg O2 Delivery Device Oxygen Flow Rate FiO2 (21.00-100.00) % Sodium 138 (136-145) mEq/L Potassium 3.0 L (3.5-5.1) mEq/L Chloride 99 (98-107) mEq/L Carbon Dioxide 29 (21-32) mEq/L Anion Gap 13.0 (5-15) BUN 19 H (7-18) mg/dL Creatinine 1.6 H (0.55-1.02) mg/dL Est Cr Clr Drug Dosing 17.79 mL/min Estimated GFR (MDRD) 30 (>60) mL/min BUN/Creatinine Ratio 11.9 L (14-18) Glucose 202 H (83-115) mg/dL POC Glucose (83-110) mg/dL Lactic Acid 0.8 (0.4-2.0) mmol/L Calcium 8.6 (8.5-10.1) mg/dL Phosphorus (2.6-4.7) mg/dL Magnesium (1.8-2.4) mg/dl Iron (50-170) ug/dL TIBC (100-400) ug/dL % Saturation (20-55) % Transferrin (202-364) mg/dL Troponin I < 0.017 (0.00-0.056) ng/mL C-Reactive Protein (<1.0) mg/dL NT-Pro-B Natriuret Pep 2345 H (0-450) pg/mL Vancomycin Trough (10.0-20.0) 05/02/19 05/02/19 05/02/19 Range/Units 05:30 05:30 05:30 WBC 15.07 H (3.98-10.04) K/mm3 RBC 2.89 L (3.98-5.22) M/mm3 Hgb 8.2 L (11.2-15.7) gm/L Hct 26.1 L (34.1-44.9) % MCV 90.3 (79.4-94.8) fl MCH 28.4 (25.6-32.2) pg MCHC 31.4 L (32.2-35.5) g/dl RDW Std Deviation 45.3 (36.4-46.3) fL Plt Count 274 (182-369) K/mm3 MPV 10.2 (9.4-12.3) fl Neut % (Auto) 82.6 H (34.0-71.1) % Lymph % (Auto) 10.2 L (19.3-51.7) % Mcmullen % (Auto) 5.2 (4.7-12.5) % Eos % (Auto) 1.5 (0.7-5.8) Baso % (Auto) 0.1 (0.1-1.2) % Neut # (Auto) 12.46 H (1.56-6.13) K/mm3 Lymph # (Auto) 1.53 (1.18-3.74) K/mm3 Mcmullen # (Auto) 0.78 H (0.24-0.36) K/mm3 Eos # (Auto) 0.22 (0.04-0.36) K/mm3 Baso # (Auto) 0.02 (0.01-0.08) K/mm3 Puncture Site ABG pH (7.35-7.45) ABG pCO2 (35.0-45.0) mmHg ABG pO2 (80.0-100.0) mmHg ABG HCO3 (22.0-26.0) meq/L ABG O2 Saturation (96.0-97.0) % ABG Base Excess (-2-2.0) Eric Test A-a Gradient mmHg O2 Delivery Device Oxygen Flow Rate FiO2 (21.00-100.00) % Sodium (136-145) mEq/L Potassium (3.5-5.1) mEq/L Chloride (98-107) mEq/L Carbon Dioxide (21-32) mEq/L Anion Gap (5-15) BUN (7-18) mg/dL Creatinine (0.55-1.02) mg/dL Est Cr Clr Drug Dosing mL/min Estimated GFR (MDRD) (>60) mL/min BUN/Creatinine Ratio (14-18) Glucose (83-115) mg/dL POC Glucose (83-110) mg/dL Lactic Acid (0.4-2.0) mmol/L Calcium (8.5-10.1) mg/dL Phosphorus (2.6-4.7) mg/dL Magnesium (1.8-2.4) mg/dl Iron 18 L (50-170) ug/dL TIBC 183 (100-400) ug/dL % Saturation 10 L (20-55) % Transferrin 146 L (202-364) mg/dL Troponin I (0.00-0.056) ng/mL C-Reactive Protein 19.5 H* (<1.0) mg/dL NT-Pro-B Natriuret Pep (0-450) pg/mL Vancomycin Trough (10.0-20.0) 05/02/19 05/02/19 05/02/19 Range/Units 06:26 12:11 17:17 WBC (3.98-10.04) K/mm3 RBC (3.98-5.22) M/mm3 Hgb (11.2-15.7) gm/L Hct (34.1-44.9) % MCV (79.4-94.8) fl MCH (25.6-32.2) pg MCHC (32.2-35.5) g/dl RDW Std Deviation (36.4-46.3) fL Plt Count (182-369) K/mm3 MPV (9.4-12.3) fl Neut % (Auto) (34.0-71.1) % Lymph % (Auto) (19.3-51.7) % Mcmullen % (Auto) (4.7-12.5) % Eos % (Auto) (0.7-5.8) Baso % (Auto) (0.1-1.2) % Neut # (Auto) (1.56-6.13) K/mm3 Lymph # (Auto) (1.18-3.74) K/mm3 Mcmullen # (Auto) (0.24-0.36) K/mm3 Eos # (Auto) (0.04-0.36) K/mm3 Baso # (Auto) (0.01-0.08) K/mm3 Puncture Site ABG pH (7.35-7.45) ABG pCO2 (35.0-45.0) mmHg ABG pO2 (80.0-100.0) mmHg ABG HCO3 (22.0-26.0) meq/L ABG O2 Saturation (96.0-97.0) % ABG Base Excess (-2-2.0) Eric Test A-a Gradient mmHg O2 Delivery Device Oxygen Flow Rate FiO2 (21.00-100.00) % Sodium (136-145) mEq/L Potassium (3.5-5.1) mEq/L Chloride (98-107) mEq/L Carbon Dioxide (21-32) mEq/L Anion Gap (5-15) BUN (7-18) mg/dL Creatinine (0.55-1.02) mg/dL Est Cr Clr Drug Dosing mL/min Estimated GFR (MDRD) (>60) mL/min BUN/Creatinine Ratio (14-18) Glucose (83-115) mg/dL POC Glucose 231 H 350 H 256 H (83-110) mg/dL Lactic Acid (0.4-2.0) mmol/L Calcium (8.5-10.1) mg/dL Phosphorus (2.6-4.7) mg/dL Magnesium (1.8-2.4) mg/dl Iron (50-170) ug/dL TIBC (100-400) ug/dL % Saturation (20-55) % Transferrin (202-364) mg/dL Troponin I (0.00-0.056) ng/mL C-Reactive Protein (<1.0) mg/dL NT-Pro-B Natriuret Pep (0-450) pg/mL Vancomycin Trough (10.0-20.0) Octavio Results Last 24 Hours: Microbiology 04/29/19 14:30 Aerobic Blood Culture - Preliminary Blood NO GROWTH AFTER 3 DAYS Anaerobic Blood Culture - Preliminary NO GROWTH AFTER 3 DAYS 04/29/19 14:25 Aerobic Blood Culture - Preliminary Blood NO GROWTH AFTER 3 DAYS Anaerobic Blood Culture - Preliminary NO GROWTH AFTER 3 DAYS Med Orders - Current: Current Medications Acetaminophen (Tylenol) 975 mg PO Q6H PRN PRN Reason: Pain Last Admin: 04/30/19 21:51 Dose: 975 mg Albuterol/Ipratropium (Duoneb 3.0-0.5 Mg/3 Ml) 3 ml NEB QIDRT [facility] Last Admin: 05/02/19 20:08 Dose: 3 ml Aspirin (Halfprin) 81 mg PO DAILY [facility] Last Admin: 05/02/19 08:29 Dose: 81 mg Cholecalciferol (Vitamin D3) 1,000 units PO BEDTIME [facility] Last Admin: 05/01/19 20:19 Dose: 1,000 units Clopidogrel Bisulfate (Plavix) 75 mg PO BEDTIME [facility] Last Admin: 05/01/19 20:20 Dose: 75 mg Fentanyl (Duragesic) 12 mcg TRDERM Q72H [facility] Last Admin: 04/30/19 12:55 Dose: 12 mcg Gabapentin (Neurontin) 300 mg PO TID [facility] Last Admin: 05/02/19 16:04 Dose: 300 mg Vancomycin HCl 1 gm/ Sodium (Chloride) 250 mls @ 250 mls/hr IV Q24H [facility] Last Admin: 05/01/19 22:11 Dose: 250 mls/hr Piperacillin Sod/Tazobactam (Sod 4.5 gm/ Sodium Chloride) 100 mls @ 25 mls/hr IV Q12H [facility] Last Admin: 05/02/19 10:02 Dose: 25 mls/hr Insulin Human Lispro (Humalog) 0 unit SUBCUT QIDACANDBED [facility]; Protocol Last Admin: 05/02/19 18:00 Dose: 9 unit Metoprolol Succinate (Toprol Xl) 50 mg PO DAILY [facility] Last Admin: 05/02/19 08:35 Dose: 50 mg Miscellaneous Information (Remove Patch) 1 ea TRDERM Q72H [facility] Potassium Chloride (Klor-Con M20) 40 meq PO TID [facility] Stop: 05/03/19 15:01 Last Admin: 05/02/19 16:04 Dose: 40 meq Rivaroxaban (Xarelto) 15 mg PO DAILY [facility] Last Admin: 05/02/19 08:30 Dose: 15 mg Saccharomyces Boulardii (Florastor) 250 mg PO BID [facility] Last Admin: 05/02/19 08:29 Dose: 250 mg Senna/Docusate Sodium (Senna Plus) 1 tab PO DAILY PRN PRN Reason: Constipation Sodium Chloride (Saline Flush) 10 ml FLUSH ASDIRECTED PRN PRN Reason: Keep Vein Open Last Admin: 04/29/19 14:46 Dose: 10 ml Spironolactone (Aldactone) 25 mg PO DAILY [facility] Vancomycin HCl (Pharmacy To Dose - Vancomycin) 0 dose .XX DAILY PRN PRN Reason: RX TO DOSE VANCO Discontinued Medications Albuterol/Ipratropium (Duoneb 3.0-0.5 Mg/3 Ml) 3 ml NEB Q4HRRT PRN PRN Reason: sob/wheezing Last Admin: 05/01/19 11:43 Dose: 3 ml Cholecalciferol (Vitamin D3) 1,000 units PO DAILY [facility] Last Admin: 04/29/19 21:18 Dose: Not Given Furosemide (Lasix) 40 mg IVPUSH NOW ONE Stop: 04/30/19 18:42 Last Admin: 04/30/19 19:24 Dose: 40 mg Furosemide (Lasix) 40 mg IVPUSH NOW ONE Stop: 05/01/19 13:35 Last Admin: 05/01/19 14:30 Dose: 40 mg Ceftriaxone Sodium 2 gm/ (Sodium Chloride) 100 mls @ 200 mls/hr IV NOW STA Stop: 04/29/19 15:15 Last Admin: 04/29/19 16:10 Dose: 200 mls/hr Sodium Chloride (Normal Saline) 1,000 mls @ 500 mls/hr IV ONETIME ONE Stop: 04/29/19 16:46 Last Admin: 04/29/19 16:09 Dose: 500 mls/hr Azithromycin 500 mg/ Sodium (Chloride) 250 mls @ 250 mls/hr IV Q24H [facility] Last Admin: 05/01/19 17:18 Dose: 250 mls/hr Sodium Chloride (Normal Saline) 1,000 mls @ 100 mls/hr IV ASDIRECTED [facility] Last Admin: 04/30/19 10:09 Dose: 100 mls/hr Vancomycin HCl 1 gm/Vancomycin HCl 250 mg/ Sodium Chloride 250 mls @ 100 mls/ hr IV ONETIME ONE Stop: 04/29/19 20:26 Last Admin: 04/29/19 21:16 Dose: 100 mls/hr Piperacillin Sod/Tazobactam (Sod 4.5 gm/ Sodium Chloride) 100 mls @ 25 mls/hr IV Q12H [facility] Last Admin: 04/30/19 09:51 Dose: 25 mls/hr Sodium Chloride (Normal Saline) Confirm Administered Dose 100 mls @ as directed .ROUTE .STK-MED ONE Stop: 04/29/19 18:55 Last Admin: 04/29/19 19:59 Dose: Not Given Piperacillin Sod/Tazobactam (Sod 4.5 gm/ Sodium Chloride) 100 mls @ 200 mls/hr IV ONETIME ONE Stop: 04/29/19 19:44 Last Admin: 04/29/19 19:19 Dose: 200 mls/hr Potassium Chloride 10 meq/ (Premix) 100 mls @ 100 mls/hr IV Q1H [facility] Stop: 05/01/19 11:59 Last Admin: 05/01/19 13:20 Dose: Not Given Piperacillin Sod/Tazobactam Sod (Piperacil-Tazobact) Confirm Administered Dose 4.5 gm .ROUTE .STK-MED ONE Stop: 04/30/19 09:30 Last Admin: 04/30/19 12:13 Dose: Not Given Potassium Chloride (Klor-Con M20) 40 meq PO ONETIME ONE Stop: 04/29/19 15:38 Last Admin: 04/29/19 16:11 Dose: 40 meq Potassium Chloride (Klor-Con M20) 60 meq PO ONETIME ONE Stop: 04/30/19 10:35 Last Admin: 04/30/19 12:13 Dose: 60 meq Potassium Chloride (Potassium Chloride Solution) 60 meq PO ONETIME ONE Stop: 05/01/19 12:01 Last Admin: 05/01/19 11:27 Dose: 60 meq - Exam Quality Assessment: Supplemental Oxygen ( 5 liters decreased to 3 liters ) General: Alert, Oriented HEENT: Pupils Equal, Pupils Reactive, EOMI, Mucous Membr. Moist/[place] Neck: Supple Lungs: Clear to Auscultation, Normal Respiratory Effort, Decreased Breath Sounds , Crackles, Other (absent lll bs ) Cardiovascular: Regular Rate, Regular Rhythm GI/Abdominal Exam: Normal Bowel Sounds, Soft, Non-Tender, No Organomegaly, No Distention, No Abnormal Bruit, No Mass, Pelvis Stable (Female) Exam: Normal External Exam, Normal Speculum Exam, Normal Bimanual Exam Back Exam: Normal Inspection, Full Range of Motion Extremities: Normal Inspection, Normal Range of Motion, Non-Tender, No Pedal Edema, Normal Capillary Refill Skin: Warm, Dry, Intact Wound/Incisions: Healing Well Neurological: No New Focal Deficit Psy/Mental Status: Alert, Normal Affect, Normal Mood - Problem List & Annotations (1) CHF (congestive heart failure), NYHA class II SNOMED Code(s): 095438716, 822637479 Code(s): I50.9 - HEART FAILURE, UNSPECIFIED Status: Acute Priority: High Current Visit: Yes Onset Date: 05/01/19 Qualifiers: Congestive heart failure type: unspecified Qualified Code(s): I50.9 - Heart failure, unspecified (2) Diabetes SNOMED Code(s): 25441663 Code(s): E11.9 - TYPE 2 DIABETES MELLITUS WITHOUT COMPLICATIONS Status: Acute Priority: High Current Visit: Yes Onset Date: 04/30/19 Qualifiers: Diabetes mellitus type: type 2 Diabetes mellitus superintendent terminal insulin use: unspecified superintendent terminal insulin use status Diabetes mellitus complication status : with neurologic complications Diabetes mellitus complication detail: with unspecified neuropathy Qualified Code(s): E11.40 - Type 2 diabetes mellitus with diabetic neuropathy, unspecified (3) Chronic renal insufficiency, stage III (moderate) SNOMED Code(s): 448149862 Code(s): N18.3 - CHRONIC KIDNEY DISEASE, STAGE 3 (MODERATE) Status: Acute Priority: Medium Current Visit: Yes Onset Date: 04/30/19 (4) Anemia SNOMED Code(s): 607143366 Code(s): D64.9 - ANEMIA, UNSPECIFIED Status: Acute Priority: Medium Current Visit: Yes Onset Date: 04/30/19 Qualifiers: Anemia type: due to chronic kidney disease Chronic kidney disease stage: stage 3 (moderate) Qualified Code(s): N18.3 - Chronic kidney disease, stage 3 (moderate); D63.1 - Anemia in chronic kidney disease (5) Hypokalemia SNOMED Code(s): 78021691 Code(s): E87.6 - HYPOKALEMIA Status: Acute Priority: Medium Current Visit: Yes Onset Date: 04/30/19 (6) Pneumonia SNOMED Code(s): 724862974 Code(s): J18.9 - PNEUMONIA, UNSPECIFIED ORGANISM Status: Acute Priority: High Current Visit: Yes Onset Date: 04/30/19 Qualifiers: Pneumonia type: due to unspecified organism Laterality: left Lung location: unspecified part of lung Qualified Code(s): J18.9 - Pneumonia, unspecified organism (7) Fall SNOMED Code(s): 8355813, 010318754 Code(s): W19.XXXA - UNSPECIFIED FALL, INITIAL ENCOUNTER Status: Acute Priority: Medium Current Visit: No Onset Date: 04/30/19 Qualifiers: Encounter type: subsequent encounter Qualified Code(s): W19.XXXD - Unspecified fall, subsequent encounter (8) Hypomagnesemia SNOMED Code(s): 390315350 Code(s): E83.42 - HYPOMAGNESEMIA Status: Acute Priority: Medium Current Visit: No (9) Dehydration SNOMED Code(s): 47533788 Code(s): E86.0 - DEHYDRATION Status: Resolved Priority: Medium Current Visit: No Onset Date: 04/30/19 (10) Hypoglycemia SNOMED Code(s): 472585981 Code(s): E16.2 - HYPOGLYCEMIA, UNSPECIFIED Status: Resolved Priority: Low Current Visit: No Onset Date: 05/01/19 (11) Hypokalemia SNOMED Code(s): 25665231 Code(s): E87.6 - HYPOKALEMIA Status: Resolved Priority: Medium Current Visit: No Onset Date: 04/30/19 - Problem List Review Problem List Initiated/Reviewed/Updated: Yes - Plan Plan:: 1. d/c azithromycin, cont vancomycin and Zosyn, has h/o MRSA. 2. `DVTP - on Xarelto. 3. Added fentanyl patch. 4. Increasing O2 requirements and WOB, judicial diuresis.echo pending 5. anemia starting anticoagulation and will check hemmoccults pending. check iron folate and b12 ansd retic and beta 2 microglobulin 6.crf stable creat and decreased lasix / edema not likely to respond optimally sec to low protein and malnutrition and advanced debility 7. k still lowe and increase k intake foods and oral tabs . 8. weakness advanced and will need prolonged rehab \ snf boh
[2019-05-02] MEDS: Cholecalciferol (Vitamin D3) 1,000 Unit Tab PO SCH (21:45)
[2019-05-02] MEDS: Clopidogrel 75 MG Tab PO SCH (21:46)
[2019-05-03] MEDS: Albuterol/Ipratropium 3.0-0.5 MG/3 ML Neb Soln NEB SCH ×4 (06:13→20:35)
[2019-05-03] MEDS: Insulin Lispro 100 Units/ML 3 ML Vial SUBCUT SCH ×4 (08:23→21:09)
[2019-05-03] MEDS: Metoprolol Succinate 50 MG Tab.ER PO SCH (08:31)
[2019-05-03] MEDS: Saccharomyces Boulardii (Probiotic) 250 MG Cap PO SCH ×2 (08:31→21:07)
[2019-05-03] MEDS: Potassium Chloride 20 MEQ Tab.ER PO SCH ×3 (08:31→21:07)
[2019-05-03] MEDS: Gabapentin 300 MG Cap PO SCH ×3 (08:31→21:08)
[2019-05-03] MEDS: Aspirin 81 MG Tab.EC PO SCH (08:32)
[2019-05-03] MEDS: Rivaroxaban 10 MG Tab PO SCH ×2 (08:32→11:14)
[2019-05-03] MEDS ORDERED: Spironolactone 25 MG Tab PO SCH (09:00)
[2019-05-03] MEDS ORDERED: Spironolactone 25 MG Tab PO ONE (10:01)
[2019-05-03] MEDS: Piperacillin/Tazobactam 4.5 GM in Sodium Chloride 0.9% 100 ML IV SCH ×2 (11:13→21:08)
[2019-05-03] MEDS: fentaNYL 12 MCG/HR Transdermal Patch TRDERM SCH (11:15)
--- NOTE | 2019-05-03 11:51 | PCM.PN ---
- General Info Date of Service: 05/03/19 Admission Dx/Problem (Free Text): 88 yo with chronic back pain, DMII, CHF admitted from ED after several days of fatigue, cough, hypoxemia, fever. CXR reveals bilteral interstitial infiltrates, i/os -800 o2 5 liters n.c feels better eating better / less sob but slept only fair pain left arm better iv site okay lungs decreased bs lft base / few crackles cor rrrn abd benign ext. gross edema 2 plus loss muscle neuro grossly intact and weak ms arthritis extensive osteoporosis posture in bed lab reviewed hgn 9.6 bnp 2345 k 3.0 mg 1.8 na 135 creat 1.6 gfr 40 xray infiltrates little change and left pleural effusion unchanged / mild vasc congestion 05/03/19 afebrile feeling better vss and o2 at 3 liters with sats 91-93 %/ no weights positive fluid balance but uo off . orally appears hydrated lungs decreased wheezing and decreased bs l posterior c/w effusion cor rrr in sinus at 80/ edema little better abd benign eating well blood noted on wiping on xaralto/ asa and plavix hgn 8.2 and refuses transfusion iron and other labs coming back pneumonia improving on vanco and zosyn not covering legionella / switch to oral meds tomorrow and or sunday hypoxia long standing and severe and will require o2 wean at n.h crf stable on daily lasix and added spironolactone dehydration resolved anorexia resolved anemia stop aspirin and may need to decrease xaralto dose await primary input. hx of cva chf severe on lasix and spironolactone and beta lorraine weakness severe needs roberto assist and needs p.t but recovery slow narciso gallegos low a and suppliment ca and mg boh Functional Status: Reports: Pain Controlled, Other (left arm aching and bruising and arthritis ) - Review of Systems General: Reports: No Symptoms, Weakness HEENT: Reports: No Symptoms Pulmonary: Reports: No Symptoms, Shortness of Breath, Other Cardiovascular: Reports: No Symptoms, Edema Gastrointestinal: Reports: No Symptoms Genitourinary: Reports: No Symptoms Musculoskeletal: Reports: No Symptoms Skin: Reports: No Symptoms Neurological: Reports: No Symptoms Psychiatric: Reports: No Symptoms - Patient Data Vitals - Most Recent: Last Vital Signs Temp 36.9 C 05/03/19 08:07 Pulse 83 06/08/19 08:31 Resp 13 05/03/19 08:07 BP 122/49 L 05/03/19 08:31 Pulse Ox 91 L 05/03/19 09:42 Weight - Most Recent: 67.177 kg I&O - Last 24 Hours: Intake & Output 05/02/19 05/03/19 05/03/19 22:59 06:59 14:59 Intake Total 920 500 470 Output Total 50 350 Balance 870 150 470 Lab Results Last 24 Hours: Laboratory Results - last 24 hr 05/02/19 05/02/19 05/02/19 Range/Units 05:30 05:30 12:11 WBC (3.98-10.04) K/mm3 RBC (3.98-5.22) M/mm3 Hgb (11.2-15.7) gm/L Hct (34.1-44.9) % MCV (79.4-94.8) fl MCH (25.6-32.2) pg MCHC (32.2-35.5) g/dl RDW Std Deviation (36.4-46.3) fL Plt Count (182-369) K/mm3 MPV (9.4-12.3) fl Neut % (Auto) (34.0-71.1) % Lymph % (Auto) (19.3-51.7) % [place] % (Auto) (4.7-12.5) % Eos % (Auto) (0.7-5.8) Baso % (Auto) (0.1-1.2) % Neut # (Auto) (1.56-6.13) K/mm3 Lymph # (Auto) (1.18-3.74) K/mm3 [place] # (Auto) (0.24-0.36) K/mm3 Eos # (Auto) (0.04-0.36) K/mm3 Baso # (Auto) (0.01-0.08) K/mm3 Percent Retic (0.50-1.70) % Sodium (136-145) mEq/L Potassium (3.5-5.1) mEq/L Chloride (98-107) mEq/L Carbon Dioxide (21-32) mEq/L Anion Gap (5-15) BUN (7-18) mg/dL Creatinine (0.55-1.02) mg/dL Est Cr Clr Drug Dosing mL/min Estimated GFR (MDRD) (>60) mL/min BUN/Creatinine Ratio (14-18) Glucose (83-115) mg/dL POC Glucose 350 H (83-110) mg/dL Calcium (8.5-10.1) mg/dL Magnesium (1.8-2.4) mg/dl Iron 18 L (50-170) ug/dL TIBC 183 (100-400) ug/dL % Saturation 10 L (20-55) % Transferrin 146 L (202-364) mg/dL Total Bilirubin (0.2-1.0) mg/dL AST (15-37) U/L ALT (14-59) U/L Alkaline Phosphatase (46-116) U/L C-Reactive Protein 19.5 H* (<1.0) mg/dL Total Protein (6.4-8.2) g/dl Albumin (3.4-5.0) g/dl Globulin gm/dL Albumin/Globulin Ratio (1-2) 05/02/19 05/02/19 05/03/19 Range/Units 17:17 21:20 05:30 WBC 10.61 H (3.98-10.04) K/mm3 RBC 2.94 L (3.98-5.22) M/mm3 Hgb 8.0 L (11.2-15.7) gm/L Hct 26.4 L (34.1-44.9) % MCV 89.8 (79.4-94.8) fl MCH 27.2 (25.6-32.2) pg MCHC 30.3 L (32.2-35.5) g/dl RDW Std Deviation 46.4 H (36.4-46.3) fL Plt Count 284 (182-369) K/mm3 MPV 10.3 (9.4-12.3) fl Neut % (Auto) 77.3 H (34.0-71.1) % Lymph % (Auto) 14.3 L (19.3-51.7) % [place] % (Auto) 6.1 (4.7-12.5) % Eos % (Auto) 1.8 (0.7-5.8) Baso % (Auto) 0.1 (0.1-1.2) % Neut # (Auto) 8.20 H (1.56-6.13) K/mm3 Lymph # (Auto) 1.52 (1.18-3.74) K/mm3 [place] # (Auto) 0.65 H (0.24-0.36) K/mm3 Eos # (Auto) 0.19 (0.04-0.36) K/mm3 Baso # (Auto) 0.01 (0.01-0.08) K/mm3 Percent Retic (0.50-1.70) % Sodium (136-145) mEq/L Potassium (3.5-5.1) mEq/L Chloride (98-107) mEq/L Carbon Dioxide (21-32) mEq/L Anion Gap (5-15) BUN (7-18) mg/dL Creatinine (0.55-1.02) mg/dL Est Cr Clr Drug Dosing mL/min Estimated GFR (MDRD) (>60) mL/min BUN/Creatinine Ratio (14-18) Glucose (83-115) mg/dL POC Glucose 256 H 320 H (83-110) mg/dL Calcium (8.5-10.1) mg/dL Magnesium (1.8-2.4) mg/dl Iron (50-170) ug/dL TIBC (100-400) ug/dL % Saturation (20-55) % Transferrin (202-364) mg/dL Total Bilirubin (0.2-1.0) mg/dL AST (15-37) U/L ALT (14-59) U/L Alkaline Phosphatase (46-116) U/L C-Reactive Protein (<1.0) mg/dL Total Protein (6.4-8.2) g/dl Albumin (3.4-5.0) g/dl Globulin gm/dL Albumin/Globulin Ratio (1-2) 05/03/19 05/03/19 05/03/19 Range/Units 05:30 05:30 06:26 WBC (3.98-10.04) K/mm3 RBC (3.98-5.22) M/mm3 Hgb (11.2-15.7) gm/L Hct (34.1-44.9) % MCV (79.4-94.8) fl MCH (25.6-32.2) pg MCHC (32.2-35.5) g/dl RDW Std Deviation (36.4-46.3) fL Plt Count (182-369) K/mm3 MPV (9.4-12.3) fl Neut % (Auto) (34.0-71.1) % Lymph % (Auto) (19.3-51.7) % [place] % (Auto) (4.7-12.5) % Eos % (Auto) (0.7-5.8) Baso % (Auto) (0.1-1.2) % Neut # (Auto) (1.56-6.13) K/mm3 Lymph # (Auto) (1.18-3.74) K/mm3 [place] # (Auto) (0.24-0.36) K/mm3 Eos # (Auto) (0.04-0.36) K/mm3 Baso # (Auto) (0.01-0.08) K/mm3 Percent Retic 0.65 (0.50-1.70) % Sodium 137 (136-145) mEq/L Potassium 3.2 L (3.5-5.1) mEq/L Chloride 98 (98-107) mEq/L Carbon Dioxide 28 (21-32) mEq/L Anion Gap 14.2 (5-15) BUN 25 H (7-18) mg/dL Creatinine 1.6 H (0.55-1.02) mg/dL Est Cr Clr Drug Dosing 17.79 mL/min Estimated GFR (MDRD) 30 (>60) mL/min BUN/Creatinine Ratio 15.6 (14-18) Glucose 261 H (83-115) mg/dL POC Glucose 285 H (83-110) mg/dL Calcium 8.7 (8.5-10.1) mg/dL Magnesium 1.9 (1.8-2.4) mg/dl Iron (50-170) ug/dL TIBC (100-400) ug/dL % Saturation (20-55) % Transferrin (202-364) mg/dL Total Bilirubin 0.3 (0.2-1.0) mg/dL AST 15 (15-37) U/L ALT 14 (14-59) U/L Alkaline Phosphatase 67 (46-116) U/L C-Reactive Protein 22.8 H* (<1.0) mg/dL Total Protein 6.1 L (6.4-8.2) g/dl Albumin 2.0 L (3.4-5.0) g/dl Globulin 4.1 gm/dL Albumin/Globulin Ratio 0.5 L (1-2) Octavio Results Last 24 Hours: Microbiology 05/02/19 22:55 Stool Occult Blood (OCTAVIO) - Final Stool / Feces POSITIVE OCCULT BLOOD REFERENCE RANGE: NEGATIVE 04/29/19 14:30 Aerobic Blood Culture - Preliminary Blood NO GROWTH AFTER 3 DAYS Anaerobic Blood Culture - Preliminary NO GROWTH AFTER 3 DAYS 04/29/19 14:25 Aerobic Blood Culture - Preliminary Blood NO GROWTH AFTER 3 DAYS Anaerobic Blood Culture - Preliminary NO GROWTH AFTER 3 DAYS Med Orders - Current: Current Medications Acetaminophen (Tylenol) 975 mg PO Q6H PRN PRN Reason: Pain Last Admin: 04/30/19 21:51 Dose: 975 mg Albuterol/Ipratropium (Duoneb 3.0-0.5 Mg/3 Ml) 3 ml NEB QIDRT [facility] Last Admin: 05/03/19 09:39 Dose: 3 ml Aspirin (Halfprin) 81 mg PO DAILY [facility] Last Admin: 05/03/19 08:32 Dose: Not Given Cholecalciferol (Vitamin D3) 1,000 units PO BEDTIME [facility] Last Admin: 05/02/19 21:45 Dose: 1,000 units Clopidogrel Bisulfate (Plavix) 75 mg PO BEDTIME [facility] Last Admin: 05/02/19 21:46 Dose: 75 mg Fentanyl (Duragesic) 12 mcg TRDERM Q72H [facility] Last Admin: 05/03/19 11:15 Dose: 12 mcg Furosemide (Lasix) 20 mg PO DAILY [facility] Gabapentin (Neurontin) 300 mg PO TID [facility] Last Admin: 05/03/19 08:31 Dose: 300 mg Vancomycin HCl 1 gm/ Sodium (Chloride) 250 mls @ 250 mls/hr IV Q24H [facility] Last Admin: 05/02/19 21:46 Dose: 250 mls/hr Piperacillin Sod/Tazobactam (Sod 4.5 gm/ Sodium Chloride) 100 mls @ 25 mls/hr IV Q12H [facility] Last Admin: 05/03/19 11:13 Dose: 25 mls/hr Insulin Glargine (Lantus) 30 unit SUBCUT DAILY [facility] Insulin Human Lispro (Humalog) 0 unit SUBCUT QIDACANDBED [facility]; Protocol Last Admin: 05/03/19 08:23 Dose: 9 unit Metoprolol Succinate (Toprol Xl) 50 mg PO DAILY [facility] Last Admin: 05/03/19 08:31 Dose: 50 mg Miscellaneous Information (Remove Patch) 1 ea TRDERM Q72H [facility] Last Admin: 05/03/19 11:15 Dose: 1 ea Potassium Chloride (Klor-Con M20) 40 meq PO TID [facility] Stop: 05/04/19 09:01 Last Admin: 05/03/19 08:31 Dose: 40 meq Rivaroxaban (Xarelto) 15 mg PO DAILY [facility] Last Admin: 05/03/19 11:14 Dose: 15 mg Saccharomyces Boulardii (Florastor) 250 mg PO BID [facility] Last Admin: 05/03/19 08:31 Dose: 250 mg Senna/Docusate Sodium (Senna Plus) 1 tab PO DAILY PRN PRN Reason: Constipation Sodium Chloride (Saline Flush) 10 ml FLUSH ASDIRECTED PRN PRN Reason: Keep Vein Open Last Admin: 04/29/19 14:46 Dose: 10 ml Spironolactone (Aldactone) 50 mg PO DAILY [facility] Vancomycin HCl (Pharmacy To Dose - Vancomycin) 0 dose .XX DAILY PRN PRN Reason: RX TO DOSE VANCO Discontinued Medications Albuterol/Ipratropium (Duoneb 3.0-0.5 Mg/3 Ml) 3 ml NEB Q4HRRT PRN PRN Reason: sob/wheezing Last Admin: 05/01/19 11:43 Dose: 3 ml Cholecalciferol (Vitamin D3) 1,000 units PO DAILY [facility] Last Admin: 04/29/19 21:18 Dose: Not Given Furosemide (Lasix) 40 mg IVPUSH NOW ONE Stop: 04/30/19 18:42 Last Admin: 04/30/19 19:24 Dose: 40 mg Furosemide (Lasix) 40 mg IVPUSH NOW ONE Stop: 05/01/19 13:35 Last Admin: 05/01/19 14:30 Dose: 40 mg Ceftriaxone Sodium 2 gm/ (Sodium Chloride) 100 mls @ 200 mls/hr IV NOW STA Stop: 04/29/19 15:15 Last Admin: 06/04/19 16:10 Dose: 200 mls/hr Sodium Chloride (Normal Saline) 1,000 mls @ 500 mls/hr IV ONETIME ONE Stop: 04/29/19 16:46 Last Admin: 04/29/19 16:09 Dose: 500 mls/hr Azithromycin 500 mg/ Sodium (Chloride) 250 mls @ 250 mls/hr IV Q24H [facility] Last Admin: 05/01/19 17:18 Dose: 250 mls/hr Sodium Chloride (Normal Saline) 1,000 mls @ 100 mls/hr IV ASDIRECTED [facility] Last Admin: 04/30/19 10:09 Dose: 100 mls/hr Vancomycin HCl 1 gm/Vancomycin HCl 250 mg/ Sodium Chloride 250 mls @ 100 mls/ hr IV ONETIME ONE Stop: 04/29/19 20:26 Last Admin: 04/29/19 21:16 Dose: 100 mls/hr Piperacillin Sod/Tazobactam (Sod 4.5 gm/ Sodium Chloride) 100 mls @ 25 mls/hr IV Q12H [facility] Last Admin: 04/30/19 09:51 Dose: 25 mls/hr Sodium Chloride (Normal Saline) Confirm Administered Dose 100 mls @ as directed .ROUTE .STK-MED ONE Stop: 04/29/19 18:55 Last Admin: 04/29/19 19:59 Dose: Not Given Piperacillin Sod/Tazobactam (Sod 4.5 gm/ Sodium Chloride) 100 mls @ 200 mls/hr IV ONETIME ONE Stop: 04/29/19 19:44 Last Admin: 04/29/19 19:19 Dose: 200 mls/hr Potassium Chloride 10 meq/ (Premix) 100 mls @ 100 mls/hr IV Q1H [facility] Stop: 05/01/19 11:59 Last Admin: 05/01/19 13:20 Dose: Not Given Piperacillin Sod/Tazobactam Sod (Piperacil-Tazobact) Confirm Administered Dose 4.5 gm .ROUTE .STK-MED ONE Stop: 04/30/19 09:30 Last Admin: 04/30/19 12:13 Dose: Not Given Potassium Chloride (Klor-Con M20) 40 meq PO ONETIME ONE Stop: 04/29/19 15:38 Last Admin: 04/29/19 16:11 Dose: 40 meq Potassium Chloride (Klor-Con M20) 60 meq PO ONETIME ONE Stop: 04/30/19 10:35 Last Admin: 04/30/19 12:13 Dose: 60 meq Potassium Chloride (Potassium Chloride Solution) 60 meq PO ONETIME ONE Stop: 05/01/19 12:01 Last Admin: 05/01/19 11:27 Dose: 60 meq Spironolactone (Aldactone) 25 mg PO DAILY [facility] Last Admin: 05/03/19 08:31 Dose: 25 mg Spironolactone (Aldactone) 25 mg PO ONETIME ONE Stop: 05/03/19 10:02 Last Admin: 05/03/19 11:14 Dose: 25 mg - Exam Quality Assessment: Supplemental Oxygen General: Alert, Oriented HEENT: Pupils Equal, Pupils Reactive, EOMI, Mucous Membr. Moist/Raub Neck: Supple Lungs: Clear to Auscultation, Normal Respiratory Effort Cardiovascular: Regular Rate, Regular Rhythm GI/Abdominal Exam: Normal Bowel Sounds, Soft, Non-Tender, No Organomegaly, No Distention, No Abnormal Bruit, No Mass, Pelvis Stable Back Exam: Normal Inspection, Full Range of Motion Extremities: Normal Inspection, Normal Range of Motion, Non-Tender, No Pedal Edema, Normal Capillary Refill Skin: Warm, Dry, Intact Wound/Incisions: Healing Well Neurological: No New Focal Deficit Psy/Mental Status: Alert, Normal Affect, Normal Mood - Problem List & Annotations (1) CHF (congestive heart failure), NYHA class II SNOMED Code(s): 260552935, 328463643 Code(s): I50.9 - HEART FAILURE, UNSPECIFIED Status: Acute Priority: High Current Visit: Yes Onset Date: 05/01/19 Qualifiers: Congestive heart failure type: unspecified Qualified Code(s): I50.9 - Heart failure, unspecified (2) Diabetes SNOMED Code(s): 76830095 Code(s): E11.9 - TYPE 2 DIABETES MELLITUS WITHOUT COMPLICATIONS Status: Acute Priority: High Current Visit: Yes Onset Date: 05/01/19 Qualifiers: Diabetes mellitus type: type 2 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 30 units for bs of 400/ adjust sliding scale down for novolog (3) Chronic renal insufficiency, stage III (moderate) SNOMED Code(s): 473974746 Code(s): N18.3 - CHRONIC KIDNEY DISEASE, STAGE 3 (MODERATE) Status: Acute Priority: Medium Current Visit: Yes Onset Date: 04/30/19 Annotation/ Comment:: add spironolactone restart daily lasix p.o (4) Anemia SNOMED Code(s): 872034802 Code(s): D64.9 - ANEMIA, UNSPECIFIED Status: Acute Priority: Medium Current Visit: Yes Onset Date: 04/30/19 Qualifiers: Annotation/Comment:: anemia sec to anticoagulation with xarolto / plavix and asa asa held mild bleeding noted from hemmhroids (5) Hypokalemia SNOMED Code(s): 63672549 Code(s): E87.6 - HYPOKALEMIA Status: Acute Priority: Medium Current Visit: Yes Onset Date: 04/30/19 Annotation/Comment:: increase mg and calcium restarting spironolactone and will not take oral k / eating some raisins and smoothie (6) Pneumonia SNOMED Code(s): 537596629 Code(s): J18.9 - PNEUMONIA, UNSPECIFIED ORGANISM Status: Acute Priority: High Current Visit: Yes Onset Date: 04/30/19 Qualifiers: Pneumonia type: due to unspecified organism Laterality: left Lung location: unspecified part of lung Qualified Code(s): J18.9 - Pneumonia, unspecified organism Annotation/Comment:: very slow improvmetna nd continued atelectasis and pleural effusion left (7) Fall SNOMED Code(s): 2082943, 041906091 Code(s): W19.XXXA - UNSPECIFIED FALL, INITIAL ENCOUNTER Status: Acute Priority: Medium Current Visit: No Onset Date: 04/30/19 Qualifiers: Encounter type: subsequent encounter Qualified Code(s): W19.XXXD - Unspecified fall, subsequent encounter Annotation/Comment:: bruising left arm healing still achey in shoulder and arm (8) Hypomagnesemia SNOMED Code(s): 373356746 Code(s): E83.42 - HYPOMAGNESEMIA Status: Acute Priority: Medium Current Visit: No Onset Date: 05/01/19 Annotation/Comment:: replacment ordered orally sometimes refusing (9) Hypomagnesemia SNOMED Code(s): 018307181 Code(s): E83.42 - HYPOMAGNESEMIA Status: Acute Current Visit: Yes (10) Sciatica neuralgia SNOMED Code(s): 44345660 Code(s): M54.30 - SCIATICA, UNSPECIFIED SIDE Status: Acute Priority: Medium Current Visit: Yes Qualifiers: Laterality: right Qualified Code(s): M54.31 - Sciatica, right side (11) Back contusion SNOMED Code(s): 53732789 Code(s): S20.229A - CONTUSION OF UNSPECIFIED BACK WALL OF THORAX, INIT ENCNTR Status: Acute Priority: Low Current Visit: No Onset Date: Annotation/Comment:: aching less but present - Problem List Review Problem List Initiated/Reviewed/Updated: Yes - My Orders Last 24 Hours: My Active Orders 05/03/19 11:27 GLUCOSE RANDOM [CHEM] Timed 05/03/19 11:45 Insulin Glarg,Human.Rec.Analog [LantUS] 30 unit SUBCUT DAILY 05/04/19 09:00 Furosemide [Lasix] 20 mg PO DAILY - Plan Plan:: 05/02/19 1. d/c azithromycin, cont vancomycin and Zosyn, has h/o MRSA. 2. `DVTP - on Xarelto. 3. Added fentanyl patch. 4. Increasing O2 requirements and WOB, judicial diuresis.echo pending 5. anemia starting anticoagulation and will check hemmoccults pending. check iron folate and b12 ansd retic and beta 2 microglobulin 6.crf stable creat and decreased lasix / edema not likely to respond optimally sec to low protein and malnutrition and advanced debility 7. k still lowe and increase k intake foods and oral tabs . 8. weakness advanced and will need prolonged rehab \ snf boh 05/03/19 address mag/ recheck i am hypoxia wean as tolerated pneumonia cont current antibiotics recheck cbc and crp pain control good overall weakness rehab limited but improving pain crf lasix daily hypokalemia increased spironolactone recheck bnp boh
[2019-05-03] MEDS ORDERED: Magnesium Sulfate (4.06 MEQ/ML) 1 GM/2 ML SDV IM ONE (12:12)
[2019-05-03] MEDS: Insulin Glarg,Human.Rec.Analog 100 UNIT/ML ML SUBCUT SCH (13:13)
[2019-05-03] MEDS ORDERED: Magnesium Sulfate/Water 2 GM in Premix Bag 1 BAG IV ONE (14:00)
[2019-05-03] MEDS: Calcium Carbonate/Vitamin D3 600 MG-200 Units Tab PO SCH (17:56)
[2019-05-03] MEDS: Cholecalciferol (Vitamin D3) 1,000 Unit Tab PO SCH (21:07)
[2019-05-03] MEDS: Clopidogrel 75 MG Tab PO SCH (21:08)
[2019-05-04] MEDS: Calcium Carbonate/Vitamin D3 600 MG-200 Units Tab PO SCH ×2 (06:25→16:05)
[2019-05-04] MEDS: Albuterol/Ipratropium 3.0-0.5 MG/3 ML Neb Soln NEB SCH ×4 (06:28→20:32)
[2019-05-04] MEDS ORDERED: Vancomycin 1 GM, Vancomycin 250 MG in Sodium Chloride 0.9% 250 ML IV SCH ×2 (08:49→17:00)
[2019-05-04] MEDS: Insulin Lispro 100 Units/ML 3 ML Vial SUBCUT SCH ×4 (09:36→21:12)
[2019-05-04] MEDS: Insulin Glarg,Human.Rec.Analog 100 UNIT/ML ML SUBCUT SCH (09:36)
[2019-05-04] MEDS: Metoprolol Succinate 50 MG Tab.ER PO SCH (09:38)
[2019-05-04] MEDS: Saccharomyces Boulardii (Probiotic) 250 MG Cap PO SCH ×2 (09:38→20:52)
[2019-05-04] MEDS: Gabapentin 300 MG Cap PO SCH ×3 (09:38→20:52)
[2019-05-04] MEDS: Spironolactone 25 MG Tab PO SCH (09:39)
[2019-05-04] MEDS: Potassium Chloride 20 MEQ Tab.ER PO SCH (09:39)
[2019-05-04] MEDS: Furosemide 20 MG Tab PO SCH ×2 (09:39→10:11)
[2019-05-04] MEDS: Piperacillin/Tazobactam 4.5 GM in Sodium Chloride 0.9% 100 ML IV SCH ×2 (09:40→19:09)
[2019-05-04] MEDS: Rivaroxaban 10 MG Tab PO SCH (10:11)
--- NOTE | 2019-05-04 11:48 | CR ---
Chest: 2 views of the chest were obtained. Comparison: Prior chest x-ray 05/02/19 and 04/30/19. Lateral view shows small pleural effusion on the left side. Diffuse bilateral parenchymal change is seen on both sides of the chest. Nodular type density is seen within the left mid chest. Findings are without definite change from previous exam. Heart size is stable. Chin overlaps the upper lungs. Scoliosis is noted within the spine with degenerative change. Prior cholecystectomy is noted. Impression: 1. Diffuse parenchymal changes in both sides of the chest with nodular density within the mid left chest. Findings are felt to be fairly stable from previous chest x-ray. 2. Other findings as noted above also believed to be stable. Nothing acute is appreciated. Diagnostic code #3
--- NOTE | 2019-05-04 13:48 | PCM.PN ---
- General Info Date of Service: 05/04/19 Admission Dx/Problem (Free Text): 88 yo with chronic back pain, DMII, CHF admitted from ED after several days of fatigue, cough, hypoxemia, fever. CXR reveals bilteral interstitial infiltrates, i/os -800 o2 5 liters n.c feels better eating better / less sob but slept only fair pain left arm better iv site okay lungs decreased bs lft base / few crackles cor rrrn abd benign ext. gross edema 2 plus loss muscle neuro grossly intact and weak ms arthritis extensive osteoporosis posture in bed lab reviewed hgn 9.6 bnp 2345 k 3.0 mg 1.8 na 135 creat 1.6 gfr 40 xray infiltrates little change and left pleural effusion unchanged / mild vasc congestion 05/03/19 afebrile feeling better vss and o2 at 3 liters with sats 91-93 %/ no weights positive fluid balance but uo off . orally appears hydrated lungs decreased wheezing and decreased bs l posterior c/w effusion cor rrr in sinus at 80/ edema little better abd benign eating well blood noted on wiping on xaralto/ asa and plavix hgn 8.2 and refuses transfusion iron and other labs coming back pneumonia improving on vanco and zosyn not covering legionella / switch to oral meds tomorrow and or sunday hypoxia long standing and severe and will require o2 wean at n.h crf stable on daily lasix and added spironolactone dehydration resolved anorexia resolved anemia stop aspirin and may need to decrease xaralto dose await primary input. hx of cva chf severe on lasix and spironolactone and beta lorraine weakness severe needs roberto assist and needs p.t but recovery slow ma el low a and suppliment ca and mg boh 05/04/19 afebrile / doing better / having nosebleeds again vss. o2 increased 3 liter n.c sats decreased 90-93/ denies chest paina and or soria /sob / slept well / good appetite hr stable bs high despite starting long acting and on ss novolog 160-307. chest xray increased edema and rul infiltrte lungs very clear and left pleural effusion less crp 13 labs okay t.p and alb very low edema mild moderate only hgn 7.9 refuses transfusion assess pneumonia improving slowly atelectasis and weakness improving / increased fluid but clinically better / give additional dose lasix today anemia sec to anticoagulation with asa xarolto and plavix and will have to hold and decrease at least one decrease dose xarolto indicated sec to other anticoag needs and pateint will not dc plavix malnutrition protein shakes and eating better but assisted requires supplement protien chf see above better but labs and xray not reflecting this Functional Status: Reports: Pain Controlled - Review of Systems General: Reports: No Symptoms HEENT: Reports: No Symptoms Pulmonary: Reports: No Symptoms, Shortness of Breath Cardiovascular: Reports: No Symptoms Gastrointestinal: Reports: No Symptoms Genitourinary: Reports: No Symptoms Musculoskeletal: Reports: No Symptoms Skin: Reports: No Symptoms Neurological: Reports: No Symptoms Psychiatric: Reports: No Symptoms - Patient Data Vitals - Most Recent: Last Vital Signs Temp 37.4 C 05/04/19 13:30 Pulse 89 05/04/19 13:21 Resp 17 05/04/19 13:30 BP 115/60 05/04/19 13:21 Pulse Ox 100 05/04/19 13:21 Weight - Most Recent: 67.086 kg I&O - Last 24 Hours: Intake & Output 05/03/19 05/04/19 05/04/19 22:59 06:59 14:59 Intake Total 750 700 240 Output Total 250 Balance 750 450 240 Lab Results Last 24 Hours: Laboratory Results - last 24 hr 05/03/19 05/03/19 05/03/19 Range/Units 16:39 20:30 20:55 WBC (3.98-10.04) K/mm3 RBC (3.98-5.22) M/mm3 Hgb (11.2-15.7) gm/L Hct (34.1-44.9) % MCV (79.4-94.8) fl MCH (25.6-32.2) pg MCHC (32.2-35.5) g/dl RDW Std Deviation (36.4-46.3) fL Plt Count (182-369) K/mm3 MPV (9.4-12.3) fl Neut % (Auto) (34.0-71.1) % Lymph % (Auto) (19.3-51.7) % Irion % (Auto) (4.7-12.5) % Eos % (Auto) (0.7-5.8) Baso % (Auto) (0.1-1.2) % Neut # (Auto) (1.56-6.13) K/mm3 Lymph # (Auto) (1.18-3.74) K/mm3 Irion # (Auto) (0.24-0.36) K/mm3 Eos # (Auto) (0.04-0.36) K/mm3 Baso # (Auto) (0.01-0.08) K/mm3 Manual Slide Review Sodium (136-145) mEq/L Potassium (3.5-5.1) mEq/L Chloride (98-107) mEq/L Carbon Dioxide (21-32) mEq/L Anion Gap (5-15) BUN (7-18) mg/dL Creatinine (0.55-1.02) mg/dL Est Cr Clr Drug Dosing mL/min Estimated GFR (MDRD) (>60) mL/min BUN/Creatinine Ratio (14-18) Glucose (83-115) mg/dL POC Glucose 376 H 380 H (83-110) mg/dL Calcium (8.5-10.1) mg/dL Magnesium (1.8-2.4) mg/dl Total Bilirubin (0.2-1.0) mg/dL AST (15-37) U/L ALT (14-59) U/L Alkaline Phosphatase (46-116) U/L C-Reactive Protein (<1.0) mg/dL Total Protein (6.4-8.2) g/dl Albumin (3.4-5.0) g/dl Globulin gm/dL Albumin/Globulin Ratio (1-2) Vancomycin Trough 9.4 L (10.0-20.0) 05/04/19 05/04/19 05/04/19 Range/Units 04:45 04:45 06:22 WBC 10.74 H (3.98-10.04) K/mm3 RBC 2.83 L (3.98-5.22) M/mm3 Hgb 7.9 L (11.2-15.7) gm/L Hct 25.8 L (34.1-44.9) % MCV 91.2 (79.4-94.8) fl MCH 27.9 (25.6-32.2) pg MCHC 30.6 L (32.2-35.5) g/dl RDW Std Deviation 46.7 H (36.4-46.3) fL Plt Count 304 (182-369) K/mm3 MPV 9.7 (9.4-12.3) fl Neut % (Auto) 71.5 H (34.0-71.1) % Lymph % (Auto) 18.2 L (19.3-51.7) % Irion % (Auto) 6.2 (4.7-12.5) % Eos % (Auto) 3.3 (0.7-5.8) Baso % (Auto) 0.2 (0.1-1.2) % Neut # (Auto) 7.69 H (1.56-6.13) K/mm3 Lymph # (Auto) 1.95 (1.18-3.74) K/mm3 Irion # (Auto) 0.67 H (0.24-0.36) K/mm3 Eos # (Auto) 0.35 (0.04-0.36) K/mm3 Baso # (Auto) 0.02 (0.01-0.08) K/mm3 Manual Slide Review Abnormal smear Sodium 140 (136-145) mEq/L Potassium 4.2 (3.5-5.1) mEq/L Chloride 104 (98-107) mEq/L Carbon Dioxide 28 (21-32) mEq/L Anion Gap 12.2 (5-15) BUN 18 (7-18) mg/dL Creatinine 1.4 H (0.55-1.02) mg/dL Est Cr Clr Drug Dosing 20.33 mL/min Estimated GFR (MDRD) 36 (>60) mL/min BUN/Creatinine Ratio 12.9 L (14-18) Glucose 166 H (83-115) mg/dL POC Glucose 184 H (83-110) mg/dL Calcium 9.2 (8.5-10.1) mg/dL Magnesium 2.4 (1.8-2.4) mg/dl Total Bilirubin 0.3 (0.2-1.0) mg/dL AST 16 (15-37) U/L ALT 16 (14-59) U/L Alkaline Phosphatase 65 (46-116) U/L C-Reactive Protein 13.4 H* (<1.0) mg/dL Total Protein 6.1 L (6.4-8.2) g/dl Albumin 2.1 L (3.4-5.0) g/dl Globulin 4.0 gm/dL Albumin/Globulin Ratio 0.5 L (1-2) Vancomycin Trough (10.0-20.0) 05/04/19 Range/Units 11:57 WBC (3.98-10.04) K/mm3 RBC (3.98-5.22) M/mm3 Hgb (11.2-15.7) gm/L Hct (34.1-44.9) % MCV (79.4-94.8) fl MCH (25.6-32.2) pg MCHC (32.2-35.5) g/dl RDW Std Deviation (36.4-46.3) fL Plt Count (182-369) K/mm3 MPV (9.4-12.3) fl Neut % (Auto) (34.0-71.1) % Lymph % (Auto) (19.3-51.7) % Irion % (Auto) (4.7-12.5) % Eos % (Auto) (0.7-5.8) Baso % (Auto) (0.1-1.2) % Neut # (Auto) (1.56-6.13) K/mm3 Lymph # (Auto) (1.18-3.74) K/mm3 Irion # (Auto) (0.24-0.36) K/mm3 Eos # (Auto) (0.04-0.36) K/mm3 Baso # (Auto) (0.01-0.08) K/mm3 Manual Slide Review Sodium (136-145) mEq/L Potassium (3.5-5.1) mEq/L Chloride (98-107) mEq/L Carbon Dioxide (21-32) mEq/L Anion Gap (5-15) BUN (7-18) mg/dL Creatinine (0.55-1.02) mg/dL Est Cr Clr Drug Dosing mL/min Estimated GFR (MDRD) (>60) mL/min BUN/Creatinine Ratio (14-18) Glucose (83-115) mg/dL POC Glucose 297 H (83-110) mg/dL Calcium (8.5-10.1) mg/dL Magnesium (1.8-2.4) mg/dl Total Bilirubin (0.2-1.0) mg/dL AST (15-37) U/L ALT (14-59) U/L Alkaline Phosphatase (46-116) U/L C-Reactive Protein (<1.0) mg/dL Total Protein (6.4-8.2) g/dl Albumin (3.4-5.0) g/dl Globulin gm/dL Albumin/Globulin Ratio (1-2) Vancomycin Trough (10.0-20.0) Octavio Results Last 24 Hours: Microbiology 04/29/19 14:30 Aerobic Blood Culture - Preliminary Blood NO GROWTH AFTER 4 DAYS Anaerobic Blood Culture - Preliminary NO GROWTH AFTER 4 DAYS 04/29/19 14:25 Aerobic Blood Culture - Preliminary Blood NO GROWTH AFTER 4 DAYS Anaerobic Blood Culture - Preliminary NO GROWTH AFTER 4 DAYS Med Orders - Current: Current Medications Acetaminophen (Tylenol) 975 mg PO Q6H PRN PRN Reason: Pain Last Admin: 04/30/19 21:51 Dose: 975 mg Albuterol/Ipratropium (Duoneb 3.0-0.5 Mg/3 Ml) 3 ml NEB QIDRT [facility] Last Admin: 05/04/19 10:33 Dose: 3 ml Aspirin (Halfprin) 81 mg PO DAILY [facility] Last Admin: 05/03/19 08:32 Dose: Not Given Calcium Carbonate (Calcium Carbonate/Vitamin D 600 Mg-200 Unit) 1 tab PO BIDMEALS [facility] Last Admin: 05/04/19 06:25 Dose: 1 tab Cholecalciferol (Vitamin D3) 1,000 units PO BEDTIME [facility] Last Admin: 05/03/19 21:07 Dose: 1,000 units Clopidogrel Bisulfate (Plavix) 75 mg PO BEDTIME [facility] Last Admin: 05/03/19 21:08 Dose: 75 mg Fentanyl (Duragesic) 12 mcg TRDERM Q72H [facility] Last Admin: 05/03/19 11:15 Dose: 12 mcg Furosemide (Lasix) 20 mg PO DAILY [facility] Last Admin: 05/04/19 10:11 Dose: Not Given Furosemide (Lasix) 40 mg IVPUSH DAILY [facility] Gabapentin (Neurontin) 300 mg PO TID [facility] Last Admin: 05/04/19 09:38 Dose: 300 mg Vancomycin HCl 1 gm/Vancomycin HCl 250 mg/ Sodium Chloride 250 mls @ 166.667 mls/hr IV Q24H [facility] Piperacillin Sod/Tazobactam (Sod 4.5 gm/ Sodium Chloride) 100 mls @ 25 mls/hr IV Q8H [facility] Last Admin: 05/04/19 09:40 Dose: 25 mls/hr Insulin Glargine (Lantus) 30 unit SUBCUT DAILY [facility] Last Admin: 05/04/19 09:36 Dose: 30 units Insulin Human Lispro (Humalog) 0 unit SUBCUT QIDACANDBED [facility]; Protocol Last Admin: 05/04/19 12:11 Dose: 9 unit Metoprolol Succinate (Toprol Xl) 50 mg PO DAILY [facility] Last Admin: 05/04/19 09:38 Dose: 50 mg Miscellaneous Information (Remove Patch) 1 ea TRDERM Q72H [facility] Last Admin: 05/03/19 11:15 Dose: 1 ea Rivaroxaban (Xarelto) 15 mg PO DAILY [facility] Last Admin: 05/04/19 10:11 Dose: Not Given Saccharomyces Boulardii (Florastor) 250 mg PO BID [facility] Last Admin: 05/04/19 09:38 Dose: 250 mg Senna/Docusate Sodium (Senna Plus) 1 tab PO DAILY PRN PRN Reason: Constipation Sodium Chloride (Saline Flush) 10 ml FLUSH ASDIRECTED PRN PRN Reason: Keep Vein Open Last Admin: 04/29/19 14:46 Dose: 10 ml Spironolactone (Aldactone) 50 mg PO DAILY [facility] Last Admin: 05/04/19 09:39 Dose: 50 mg Vancomycin HCl (Pharmacy To Dose - Vancomycin) 0 dose .XX DAILY PRN PRN Reason: RX TO DOSE VANCO Discontinued Medications Albuterol/Ipratropium (Duoneb 3.0-0.5 Mg/3 Ml) 3 ml NEB Q4HRRT PRN PRN Reason: sob/wheezing Last Admin: 05/01/19 11:43 Dose: 3 ml Cholecalciferol (Vitamin D3) 1,000 units PO DAILY [facility] Last Admin: 04/29/19 21:18 Dose: Not Given Furosemide (Lasix) 40 mg IVPUSH NOW ONE Stop: 04/30/19 18:42 Last Admin: 04/30/19 19:24 Dose: 40 mg Furosemide (Lasix) 40 mg IVPUSH NOW ONE Stop: 05/01/19 13:35 Last Admin: 05/01/19 14:30 Dose: 40 mg Ceftriaxone Sodium 2 gm/ (Sodium Chloride) 100 mls @ 200 mls/hr IV NOW STA Stop: 04/29/19 15:15 Last Admin: 04/29/19 16:10 Dose: 200 mls/hr Sodium Chloride (Normal Saline) 1,000 mls @ 500 mls/hr IV ONETIME ONE Stop: 04/29/19 16:46 Last Admin: 04/29/19 16:09 Dose: 500 mls/hr Azithromycin 500 mg/ Sodium (Chloride) 250 mls @ 250 mls/hr IV Q24H [facility] Last Admin: 05/01/19 17:18 Dose: 250 mls/hr Sodium Chloride (Normal Saline) 1,000 mls @ 100 mls/hr IV ASDIRECTED [facility] Last Admin: 04/30/19 10:09 Dose: 100 mls/hr Vancomycin HCl 1 gm/Vancomycin HCl 250 mg/ Sodium Chloride 250 mls @ 100 mls/ hr IV ONETIME ONE Stop: 04/29/19 20:26 Last Admin: 04/29/19 21:16 Dose: 100 mls/hr Piperacillin Sod/Tazobactam (Sod 4.5 gm/ Sodium Chloride) 100 mls @ 25 mls/hr IV Q12H [facility] Last Admin: 04/30/19 09:51 Dose: 25 mls/hr Sodium Chloride (Normal Saline) Confirm Administered Dose 100 mls @ as directed .ROUTE .STK-MED ONE Stop: 04/29/19 18:55 Last Admin: 04/29/19 19:59 Dose: Not Given Piperacillin Sod/Tazobactam (Sod 4.5 gm/ Sodium Chloride) 100 mls @ 200 mls/hr IV ONETIME ONE Stop: 04/29/19 19:44 Last Admin: 04/29/19 19:19 Dose: 200 mls/hr Vancomycin HCl 1 gm/ Sodium (Chloride) 250 mls @ 250 mls/hr IV Q24H [facility] Last Admin: 05/03/19 21:43 Dose: Not Given Piperacillin Sod/Tazobactam (Sod 4.5 gm/ Sodium Chloride) 100 mls @ 25 mls/hr IV Q12H [facility] Last Admin: 05/03/19 21:08 Dose: 25 mls/hr Potassium Chloride 10 meq/ (Premix) 100 mls @ 100 mls/hr IV Q1H [facility] Stop: 05/01/19 11:59 Last Admin: 05/01/19 13:20 Dose: Not Given Magnesium Sulfate 2 gm/ Premix 50 mls @ 25 mls/hr IV ONETIME ONE Stop: 05/03/19 15:59 Last Admin: 05/03/19 16:15 Dose: 25 mls/hr Vancomycin HCl 1.25 gm/ Sodium (Chloride) 250 mls @ 250 mls/hr IV Q12H [facility] Vancomycin HCl 1.25 gm/ Sodium (Chloride) 250 mls @ 250 mls/hr IV Q24H [facility] Last Admin: 05/03/19 21:53 Dose: 250 mls/hr Magnesium Sulfate (Magnesium Sulfate 50%) 1 gm IM ONETIME ONE Stop: 05/03/19 12:13 Last Admin: 05/03/19 13:29 Dose: Not Given Piperacillin Sod/Tazobactam Sod (Piperacil-Tazobact) Confirm Administered Dose 4.5 gm .ROUTE .STK-MED ONE Stop: 04/30/19 09:30 Last Admin: 04/30/19 12:13 Dose: Not Given Potassium Chloride (Klor-Con M20) 40 meq PO ONETIME ONE Stop: 04/29/19 15:38 Last Admin: 04/29/19 16:11 Dose: 40 meq Potassium Chloride (Klor-Con M20) 60 meq PO ONETIME ONE Stop: 04/30/19 10:35 Last Admin: 04/30/19 12:13 Dose: 60 meq Potassium Chloride (Potassium Chloride Solution) 60 meq PO ONETIME ONE Stop: 05/01/19 12:01 Last Admin: 05/01/19 11:27 Dose: 60 meq Potassium Chloride (Klor-Con M20) 40 meq PO TID [facility] Stop: 05/04/19 09:01 Last Admin: 05/04/19 09:39 Dose: 40 meq Spironolactone (Aldactone) 25 mg PO DAILY [facility] Last Admin: 05/03/19 08:31 Dose: 25 mg Spironolactone (Aldactone) 25 mg PO ONETIME ONE Stop: 05/03/19 10:02 Last Admin: 05/03/19 11:14 Dose: 25 mg - Problem List & Annotations (1) CHF (congestive heart failure), NYHA class II SNOMED Code(s): 501414513, 665467032 Code(s): I50.9 - HEART FAILURE, UNSPECIFIED Status: Acute Priority: High Current Visit: Yes Onset Date: 05/01/19 Qualifiers: Congestive heart failure type: unspecified Qualified Code(s): I50.9 - Heart failure, unspecified (2) Diabetes SNOMED Code(s): 73390560 Code(s): E11.9 - TYPE 2 DIABETES MELLITUS WITHOUT COMPLICATIONS Status: Chronic Priority: High Current Visit: Yes Onset Date: 05/01/19 Qualifiers: Diabetes mellitus type: type 2 Diabetes mellitus assisted insulin use: with assisted use Diabetes mellitus complication status: with neurologic complications Diabetes mellitus complication detail: with unspecified neuropathy Qualified Code(s): E11.40 - Type 2 diabetes mellitus with diabetic neuropathy, unspecified; 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 30 units for bs of 400/ adjust sliding scale down for novolog (3) Chronic renal insufficiency, stage III (moderate) SNOMED Code(s): 086238315 Code(s): N18.3 - CHRONIC KIDNEY DISEASE, STAGE 3 (MODERATE) Status: Chronic Priority: Medium Current Visit: Yes Onset Date: 04/30/19 Annotation/Comment:: add spironolactone restart daily lasix p.o (4) Anemia SNOMED Code(s): 120633159 Code(s): D64.9 - ANEMIA, UNSPECIFIED Status: Acute Priority: Medium Current Visit: Yes Onset Date: 04/30/19 Qualifiers: Annotation/Comment:: anemia sec to anticoagulation with xarolto / plavix and asa asa held mild bleeding noted from hemmhroids (5) Hypokalemia SNOMED Code(s): 10439532 Code(s): E87.6 - HYPOKALEMIA Status: Acute Priority: Medium Current Visit: Yes Onset Date: 04/30/19 Annotation/Comment:: increase mg and calcium restarting spironolactone and will not take oral k / eating some raisins and smoothie (6) Pneumonia SNOMED Code(s): 532059329 Code(s): J18.9 - PNEUMONIA, UNSPECIFIED ORGANISM Status: Acute Priority: High Current Visit: Yes Onset Date: 04/30/19 Qualifiers: Pneumonia type: due to unspecified organism Laterality: left Lung location: unspecified part of lung Qualified Code(s): J18.9 - Pneumonia, unspecified organism Annotation/Comment:: very slow improvmetna nd continued atelectasis and pleural effusion left (7) Fall SNOMED Code(s): 7439989, 275643809 Code(s): W19.XXXA - UNSPECIFIED FALL, INITIAL ENCOUNTER Status: Acute Priority: Medium Current Visit: No Onset Date: 04/30/19 Qualifiers: Encounter type: subsequent encounter Qualified Code(s): W19.XXXD - Unspecified fall, subsequent encounter Annotation/Comment:: bruising left arm healing still achey in shoulder and arm (8) Hypomagnesemia SNOMED Code(s): 969831146 Code(s): E83.42 - HYPOMAGNESEMIA Status: Acute Priority: Medium Current Visit: No Onset Date: 05/01/19 Annotation/Comment:: replacment ordered orally sometimes refusing (9) Hypomagnesemia SNOMED Code(s): 220178804 Code(s): E83.42 - HYPOMAGNESEMIA Status: Acute Current Visit: Yes (10) Sciatica neuralgia SNOMED Code(s): 11046855 Code(s): M54.30 - SCIATICA, UNSPECIFIED SIDE Status: Acute Priority: Medium Current Visit: Yes Qualifiers: Laterality: right Qualified Code(s): M54.31 - Sciatica, right side (11) Back contusion SNOMED Code(s): 98945280 Code(s): S20.229A - CONTUSION OF UNSPECIFIED BACK WALL OF THORAX, INIT ENCNTR Status: Resolved Priority: Low Current Visit: No Onset Date: 05/14 Annotation/Comment:: aching less but present (12) CHF (congestive heart failure), NYHA class II SNOMED Code(s): 747633337, 851722838 Code(s): I50.9 - HEART FAILURE, UNSPECIFIED Status: Acute Current Visit: Yes Qualifiers: Congestive heart failure type: combined Congestive heart failure chronicity : acute on chronic Qualified Code(s): I50.43 - Acute on chronic combined systolic (congestive) and diastolic (congestive) heart failure (13) Atrial fibrillation with RVR SNOMED Code(s): 175636822014428 Code(s): I48.91 - UNSPECIFIED ATRIAL FIBRILLATION Status: Resolved Priority: High Current Visit: No Onset Date: 05/02/19 (14) Hypoxia SNOMED Code(s): 828405527 Code(s): R09.02 - HYPOXEMIA Status: Acute Priority: High Current Visit : No Onset Date: 05/02/19 (15) DM2 (diabetes mellitus, type 2) SNOMED Code(s): 69779440 Code(s): E11.9 - TYPE 2 DIABETES MELLITUS WITHOUT COMPLICATIONS Status: Chronic Priority: High Current Visit: No Onset Date: 05/02/19 Qualifiers: Diabetes mellitus assisted insulin use: unspecified assisted insulin use status Diabetes mellitus complication status: with unspecified complications - Problem List Review Problem List Initiated/Reviewed/Updated: Yes - My Orders Last 24 Hours: My Active Orders 05/03/19 17:00 Calcium Carbonate/Vitamin D3 [Calcium Carbonate/Vitamin D 600 MG-200 Unit] 1 tab PO BIDMEALS 05/04/19 09:00 Furosemide [Lasix] 20 mg PO DAILY 05/04/19 13:45 Furosemide [Lasix] 40 mg IVPUSH DAILY - Plan Plan:: 05/02/19 1. d/c azithromycin, cont vancomycin and Zosyn, has h/o MRSA. 2. `DVTP - on Xarelto. 3. Added fentanyl patch. 4. Increasing O2 requirements and WOB, judicial diuresis.echo pending 5. anemia starting anticoagulation and will check hemmoccults pending. check iron folate and b12 ansd retic and beta 2 microglobulin 6.crf stable creat and decreased lasix / edema not likely to respond optimally sec to low protein and malnutrition and advanced debility 7. k still lowe and increase k intake foods and oral tabs . 8. weakness advanced and will need prolonged rehab \ snf boh 05/03/19 address mag/ recheck i am hypoxia wean as tolerated pneumonia cont current antibiotics recheck cbc and crp pain control good overall weakness rehab limited but improving pain crf lasix daily hypokalemia increased spironolactone recheck bnp boh 05/04/19 single dose iv lasix / hold xaralto and plavix and asa sec to cont nose bleeds . monitor chf and crf monitor anemia monitor low protien cont zosyn she responding to pneumonia treatment slowly a nd high risk of relapse
[2019-05-04] MEDS: Furosemide 40 MG/4 ML VIAL IVPUSH SCH (15:53)
[2019-05-04] MEDS: Cholecalciferol (Vitamin D3) 1,000 Unit Tab PO SCH (20:52)
[2019-05-05] MEDS: Piperacillin/Tazobactam 4.5 GM in Sodium Chloride 0.9% 100 ML IV SCH ×2 (05:51→17:14)
[2019-05-05] MEDS: Albuterol/Ipratropium 3.0-0.5 MG/3 ML Neb Soln NEB SCH ×4 (06:10→20:42)
[2019-05-05] MEDS: Calcium Carbonate/Vitamin D3 600 MG-200 Units Tab PO SCH ×4 (07:02→18:24)
[2019-05-05] MEDS: Insulin Lispro 100 Units/ML 3 ML Vial SUBCUT SCH ×4 (07:47→21:50)
[2019-05-05] MEDS: Furosemide 40 MG/4 ML VIAL IVPUSH SCH (08:59)
[2019-05-05] MEDS: Saccharomyces Boulardii (Probiotic) 250 MG Cap PO SCH ×2 (08:59→21:51)
[2019-05-05] MEDS: Gabapentin 300 MG Cap PO SCH ×3 (08:59→21:51)
[2019-05-05] MEDS: Spironolactone 25 MG Tab PO SCH ×3 (08:59→09:22)
[2019-05-05] MEDS: Rivaroxaban 10 MG Tab PO SCH (09:00)
[2019-05-05] MEDS: Metoprolol Succinate 50 MG Tab.ER PO SCH ×2 (09:10→09:21)
[2019-05-05] MEDS: Insulin Glarg,Human.Rec.Analog 100 UNIT/ML ML SUBCUT SCH (09:10)
--- NOTE | 2019-05-05 11:18 | PCM.PN ---
- General Info Date of Service: 05/05/19 Admission Dx/Problem (Free Text): 88 yo with chronic back pain, DMII, CHF admitted from ED after several days of fatigue, cough, hypoxemia, fever. CXR reveals bilteral interstitial infiltrates, i/os -800 o2 5 liters n.c feels better eating better / less sob but slept only fair pain left arm better iv site okay lungs decreased bs lft base / few crackles cor rrrn abd benign ext. gross edema 2 plus loss muscle neuro grossly intact and weak ms arthritis extensive osteoporosis posture in bed lab reviewed hgn 9.6 bnp 2345 k 3.0 mg 1.8 na 135 creat 1.6 gfr 40 xray infiltrates little change and left pleural effusion unchanged / mild vasc congestion 05/03/19 afebrile feeling better vss and o2 at 3 liters with sats 91-93 %/ no weights positive fluid balance but uo off . orally appears hydrated lungs decreased wheezing and decreased bs l posterior c/w effusion cor rrr in sinus at 80/ edema little better abd benign eating well blood noted on wiping on xaralto/ asa and plavix hgn 8.2 and refuses transfusion iron and other labs coming back pneumonia improving on vanco and zosyn not covering legionella / switch to oral meds tomorrow and or sunday hypoxia long standing and severe and will require o2 wean at [facility] stable on daily lasix and added spironolactone dehydration resolved anorexia resolved anemia stop aspirin and may need to decrease xaralto dose await primary input. hx of cva chf severe on lasix and spironolactone and beta lorraine weakness severe needs roberto assist and needs p.t but recovery slow ma el low a and suppliment ca and mg boh 05/04/19 afebrile / doing better / having nosebleeds again vss. o2 increased 3 liter n.c sats decreased 90-93/ denies chest paina and or soria /sob / slept well / good appetite hr stable bs high despite starting long acting and on ss novolog 160-307. chest xray increased edema and rul infiltrte lungs very clear and left pleural effusion less crp 13 labs okay t.p and alb very low edema mild moderate only hgn 7.9 refuses transfusion assess pneumonia improving slowly atelectasis and weakness improving / increased fluid but clinically better / give additional dose lasix today anemia sec to anticoagulation with asa xarolto and plavix and will have to hold and decrease at least one decrease dose xarolto indicated sec to other anticoag needs and pateint will not dc plavix malnutrition protein shakes and eating better but halfway requires supplement protien chf see above better but labs and xray not reflecting this 05/05/2019 Xarelto, Plavix, and aspirin were held yesterday secondary to dropping blood count. Patient was given Xarelto this morning. Hemoglobin is down to 7.6 and patient continues to not want blood products. IV was established and she was given this morning's IV antibiotics of vancomycin and Zosyn. She did miss one dose last night. Patient states that she is feeling better, she is afebrile, and had 1 nosebleed. C-reactive protein is also decreased to 9.0 with increase in her white count from 10.7-12.7. Creatinine has increased from 1.4-1.7. Functional Status: Reports: Pain Controlled - Review of Systems General: Reports: Weakness HEENT: Reports: No Symptoms Pulmonary: Reports: No Symptoms. Denies: Shortness of Breath Cardiovascular: Reports: No Symptoms. Denies: Chest Pain Gastrointestinal: Reports: No Symptoms Neurological: Reports: Confusion - Patient Data Vitals - Most Recent: Last Vital Signs Temp 99.0 F 05/05/19 05:05 Pulse 90 05/05/19 09:21 Resp 16 05/05/19 09:09 BP 120/45 L 05/05/19 09:21 Pulse Ox 92 L 05/05/19 09:45 Weight - Most Recent: 150 lb 1.6 oz I&O - Last 24 Hours: Intake & Output 05/04/19 05/05/19 05/05/19 22:59 06:59 14:59 Intake Total 1190 400 240 Balance 1190 400 240 Lab Results Last 24 Hours: Laboratory Results - last 24 hr 04/29/19 05/04/19 05/04/19 Range/Units 18:55 11:57 17:32 WBC (3.98-10.04) K/mm3 RBC (3.98-5.22) M/mm3 Hgb (11.2-15.7) gm/L Hct (34.1-44.9) % MCV (79.4-94.8) fl MCH (25.6-32.2) pg MCHC (32.2-35.5) g/dl RDW Std Deviation (36.4-46.3) fL Plt Count (182-369) K/mm3 MPV (9.4-12.3) fl Neut % (Auto) (34.0-71.1) % Lymph % (Auto) (19.3-51.7) % Logan % (Auto) (4.7-12.5) % Eos % (Auto) (0.7-5.8) Baso % (Auto) (0.1-1.2) % Neut # (Auto) (1.56-6.13) K/mm3 Lymph # (Auto) (1.18-3.74) K/mm3 Logan # (Auto) (0.24-0.36) K/mm3 Eos # (Auto) (0.04-0.36) K/mm3 Baso # (Auto) (0.01-0.08) K/mm3 Manual Slide Review Sodium (136-145) mEq/L Potassium (3.5-5.1) mEq/L Chloride (98-107) mEq/L Carbon Dioxide (21-32) mEq/L Anion Gap (5-15) BUN (7-18) mg/dL Creatinine (0.55-1.02) mg/dL Est Cr Clr Drug Dosing mL/min Estimated GFR (MDRD) (>60) mL/min BUN/Creatinine Ratio (14-18) Glucose (83-115) mg/dL POC Glucose 297 H 198 H (83-110) mg/dL Calcium (8.5-10.1) mg/dL Magnesium (1.8-2.4) mg/dl Total Bilirubin (0.2-1.0) mg/dL AST (15-37) U/L ALT (14-59) U/L Alkaline Phosphatase (46-116) U/L C-Reactive Protein (<1.0) mg/dL Total Protein (6.4-8.2) g/dl Albumin (3.4-5.0) g/dl Globulin gm/dL Albumin/Globulin Ratio (1-2) L.pneumophila IgG Ab < 1:16 (< 1:16) 0605/05/19 05/05/19 Range/Units 20:57 04:37 04:37 WBC 12.70 H (3.98-10.04) K/mm3 RBC 2.73 L (3.98-5.22) M/mm3 Hgb 7.6 L (11.2-15.7) gm/L Hct 25.1 L (34.1-44.9) % MCV 91.9 (79.4-94.8) fl MCH 27.8 (25.6-32.2) pg MCHC 30.3 L (32.2-35.5) g/dl RDW Std Deviation 47.7 H (36.4-46.3) fL Plt Count 352 (182-369) K/mm3 MPV 9.9 (9.4-12.3) fl Neut % (Auto) 75.6 H (34.0-71.1) % Lymph % (Auto) 13.2 L (19.3-51.7) % Logan % (Auto) 6.7 (4.7-12.5) % Eos % (Auto) 3.5 (0.7-5.8) Baso % (Auto) 0.1 (0.1-1.2) % Neut # (Auto) 9.61 H (1.56-6.13) K/mm3 Lymph # (Auto) 1.68 (1.18-3.74) K/mm3 Logan # (Auto) 0.85 H (0.24-0.36) K/mm3 Eos # (Auto) 0.44 H (0.04-0.36) K/mm3 Baso # (Auto) 0.01 (0.01-0.08) K/mm3 Manual Slide Review Abnormal smear Sodium 140 (136-145) mEq/L Potassium 4.3 (3.5-5.1) mEq/L Chloride 103 (98-107) mEq/L Carbon Dioxide 29 (21-32) mEq/L Anion Gap 12.3 (5-15) BUN 15 (7-18) mg/dL Creatinine 1.7 H (0.55-1.02) mg/dL Est Cr Clr Drug Dosing 16.75 mL/min Estimated GFR (MDRD) 28 (>60) mL/min BUN/Creatinine Ratio 8.8 L (14-18) Glucose 104 (83-115) mg/dL POC Glucose 152 H (83-110) mg/dL Calcium 9.1 (8.5-10.1) mg/dL Magnesium 1.9 (1.8-2.4) mg/dl Total Bilirubin 0.4 (0.2-1.0) mg/dL AST 26 (15-37) U/L ALT 24 (14-59) U/L Alkaline Phosphatase 64 (46-116) U/L C-Reactive Protein 9.0 H* (<1.0) mg/dL Total Protein 5.8 L (6.4-8.2) g/dl Albumin 2.0 L (3.4-5.0) g/dl Globulin 3.8 gm/dL Albumin/Globulin Ratio 0.5 L (1-2) L.pneumophila IgG Ab (< 1:16) 05/05/19 Range/Units 06:25 WBC (3.98-10.04) K/mm3 RBC (3.98-5.22) M/mm3 Hgb (11.2-15.7) gm/L Hct (34.1-44.9) % MCV (79.4-94.8) fl MCH (25.6-32.2) pg MCHC (32.2-35.5) g/dl RDW Std Deviation (36.4-46.3) fL Plt Count (182-369) K/mm3 MPV (9.4-12.3) fl Neut % (Auto) (34.0-71.1) % Lymph % (Auto) (19.3-51.7) % Logan % (Auto) (4.7-12.5) % Eos % (Auto) (0.7-5.8) Baso % (Auto) (0.1-1.2) % Neut # (Auto) (1.56-6.13) K/mm3 Lymph # (Auto) (1.18-3.74) K/mm3 Logan # (Auto) (0.24-0.36) K/mm3 Eos # (Auto) (0.04-0.36) K/mm3 Baso # (Auto) (0.01-0.08) K/mm3 Manual Slide Review Sodium (136-145) mEq/L Potassium (3.5-5.1) mEq/L Chloride (98-107) mEq/L Carbon Dioxide (21-32) mEq/L Anion Gap (5-15) BUN (7-18) mg/dL Creatinine (0.55-1.02) mg/dL Est Cr Clr Drug Dosing mL/min Estimated GFR (MDRD) (>60) mL/min BUN/Creatinine Ratio (14-18) Glucose (83-115) mg/dL POC Glucose 118 H (83-110) mg/dL Calcium (8.5-10.1) mg/dL Magnesium (1.8-2.4) mg/dl Total Bilirubin (0.2-1.0) mg/dL AST (15-37) U/L ALT (14-59) U/L Alkaline Phosphatase (46-116) U/L C-Reactive Protein (<1.0) mg/dL Total Protein (6.4-8.2) g/dl Albumin (3.4-5.0) g/dl Globulin gm/dL Albumin/Globulin Ratio (1-2) L.pneumophila IgG Ab (< 1:16) Octavio Results Last 24 Hours: Microbiology 04/29/19 14:30 Aerobic Blood Culture - Preliminary Blood NO GROWTH AFTER 5 DAYS Anaerobic Blood Culture - Preliminary NO GROWTH AFTER 5 DAYS 04/29/19 14:25 Aerobic Blood Culture - Preliminary Blood NO GROWTH AFTER 5 DAYS Anaerobic Blood Culture - Preliminary NO GROWTH AFTER 5 DAYS Med Orders - Current: Current Medications Acetaminophen (Tylenol) 975 mg PO Q6H PRN PRN Reason: Pain Last Admin: 04/30/19 21:51 Dose: 975 mg Albuterol/Ipratropium (Duoneb 3.0-0.5 Mg/3 Ml) 3 ml NEB QIDRT [facility] Last Admin: 05/05/19 09:45 Dose: 3 ml Aspirin (Halfprin) 81 mg PO DAILY [facility] Last Admin: 05/03/19 08:32 Dose: Not Given Calcium Carbonate (Calcium Carbonate/Vitamin D 600 Mg-200 Unit) 1 tab PO BIDMEALS [facility] Last Admin: 05/05/19 07:05 Dose: Not Given Cholecalciferol (Vitamin D3) 1,000 units PO BEDTIME [facility] Last Admin: 05/04/19 20:52 Dose: 1,000 units Clopidogrel Bisulfate (Plavix) 75 mg PO BEDTIME [facility] Last Admin: 05/03/19 21:08 Dose: 75 mg Fentanyl (Duragesic) 12 mcg TRDERM Q72H [facility] Last Admin: 05/03/19 11:15 Dose: 12 mcg Furosemide (Lasix) 40 mg IVPUSH DAILY [facility] Last Admin: 05/05/19 08:59 Dose: 40 mg Gabapentin (Neurontin) 300 mg PO TID [facility] Last Admin: 05/05/19 08:59 Dose: 300 mg Vancomycin HCl 1 gm/Vancomycin HCl 250 mg/ Sodium Chloride 250 mls @ 166.667 mls/hr IV Q24H [facility] Last Admin: 05/04/19 17:23 Dose: 166.667 mls/hr Piperacillin Sod/Tazobactam (Sod 4.5 gm/ Sodium Chloride) 100 mls @ 25 mls/hr IV Q12H [facility] Insulin Glargine (Lantus) 30 unit SUBCUT DAILY [facility] Last Admin: 05/05/19 09:10 Dose: 30 units Insulin Human Lispro (Humalog) 0 unit SUBCUT QIDACANDBED [facility]; Protocol Last Admin: 05/05/19 07:47 Dose: Not Given Metoprolol Succinate (Toprol Xl) 50 mg PO DAILY [facility] Last Admin: 05/05/19 09:21 Dose: 50 mg Miscellaneous Information (Remove Patch) 1 ea TRDERM Q72H [facility] Last Admin: 05/03/19 11:15 Dose: 1 ea Saccharomyces Boulardii (Florastor) 250 mg PO BID [facility] Last Admin: 05/05/19 08:59 Dose: 250 mg Senna/Docusate Sodium (Senna Plus) 1 tab PO DAILY PRN PRN Reason: Constipation Sodium Chloride (Saline Flush) 10 ml FLUSH ASDIRECTED PRN PRN Reason: Keep Vein Open Last Admin: 04/29/19 14:46 Dose: 10 ml Spironolactone (Aldactone) 50 mg PO DAILY [facility] Last Admin: 05/05/19 09:22 Dose: 50 mg Vancomycin HCl (Pharmacy To Dose - Vancomycin) 0 dose .XX DAILY PRN PRN Reason: RX TO DOSE VANCO Discontinued Medications Albuterol/Ipratropium (Duoneb 3.0-0.5 Mg/3 Ml) 3 ml NEB Q4HRRT PRN PRN Reason: sob/wheezing Last Admin: 05/01/19 11:43 Dose: 3 ml Cholecalciferol (Vitamin D3) 1,000 units PO DAILY [facility] Last Admin: 04/29/19 21:18 Dose: Not Given Furosemide (Lasix) 40 mg IVPUSH NOW ONE Stop: 04/30/19 18:42 Last Admin: 04/30/19 19:24 Dose: 40 mg Furosemide (Lasix) 40 mg IVPUSH NOW ONE Stop: 05/01/19 13:35 Last Admin: 05/01/19 14:30 Dose: 40 mg Furosemide (Lasix) 20 mg PO DAILY [facility] Last Admin: 05/04/19 10:11 Dose: Not Given Ceftriaxone Sodium 2 gm/ (Sodium Chloride) 100 mls @ 200 mls/hr IV NOW STA Stop: 04/29/19 15:15 Last Admin: 04/29/19 16:10 Dose: 200 mls/hr Sodium Chloride (Normal Saline) 1,000 mls @ 500 mls/hr IV ONETIME ONE Stop: 04/29/19 16:46 Last Admin: 04/29/19 16:09 Dose: 500 mls/hr Azithromycin 500 mg/ Sodium (Chloride) 250 mls @ 250 mls/hr IV Q24H [facility] Last Admin: 05/01/19 17:18 Dose: 250 mls/hr Sodium Chloride (Normal Saline) 1,000 mls @ 100 mls/hr IV ASDIRECTED [facility] Last Admin: 04/30/19 10:09 Dose: 100 mls/hr Vancomycin HCl 1 gm/Vancomycin HCl 250 mg/ Sodium Chloride 250 mls @ 100 mls/ hr IV ONETIME ONE Stop: 04/29/19 20:26 Last Admin: 04/29/19 21:16 Dose: 100 mls/hr Piperacillin Sod/Tazobactam (Sod 4.5 gm/ Sodium Chloride) 100 mls @ 25 mls/hr IV Q12H [facility] Last Admin: 04/30/19 09:51 Dose: 25 mls/hr Sodium Chloride (Normal Saline) Confirm Administered Dose 100 mls @ as directed .ROUTE .STK-MED ONE Stop: 04/29/19 18:55 Last Admin: 04/29/19 19:59 Dose: Not Given Piperacillin Sod/Tazobactam (Sod 4.5 gm/ Sodium Chloride) 100 mls @ 200 mls/hr IV ONETIME ONE Stop: 04/29/19 19:44 Last Admin: 04/29/19 19:19 Dose: 200 mls/hr Vancomycin HCl 1 gm/ Sodium (Chloride) 250 mls @ 250 mls/hr IV Q24H [facility] Last Admin: 05/03/19 21:43 Dose: Not Given Piperacillin Sod/Tazobactam (Sod 4.5 gm/ Sodium Chloride) 100 mls @ 25 mls/hr IV Q12H [facility] Last Admin: 05/03/19 21:08 Dose: 25 mls/hr Potassium Chloride 10 meq/ (Premix) 100 mls @ 100 mls/hr IV Q1H [facility] Stop: 05/01/19 11:59 Last Admin: 05/01/19 13:20 Dose: Not Given Magnesium Sulfate 2 gm/ Premix 50 mls @ 25 mls/hr IV ONETIME ONE Stop: 05/03/19 15:59 Last Admin: 05/03/19 16:15 Dose: 25 mls/hr Vancomycin HCl 1.25 gm/ Sodium (Chloride) 250 mls @ 250 mls/hr IV Q12H [facility] Vancomycin HCl 1.25 gm/ Sodium (Chloride) 250 mls @ 250 mls/hr IV Q24H [facility] Last Admin: 05/03/19 21:53 Dose: 250 mls/hr Piperacillin Sod/Tazobactam (Sod 4.5 gm/ Sodium Chloride) 100 mls @ 25 mls/hr IV Q8H [facility] Last Admin: 05/05/19 05:51 Dose: 25 mls/hr Magnesium Sulfate (Magnesium Sulfate 50%) 1 gm IM ONETIME ONE Stop: 05/03/19 12:13 Last Admin: 05/03/19 13:29 Dose: Not Given Piperacillin Sod/Tazobactam Sod (Piperacil-Tazobact) Confirm Administered Dose 4.5 gm .ROUTE .STK-MED ONE Stop: 04/30/19 09:30 Last Admin: 04/30/19 12:13 Dose: Not Given Potassium Chloride (Klor-Con M20) 40 meq PO ONETIME ONE Stop: 04/29/19 15:38 Last Admin: 04/29/19 16:11 Dose: 40 meq Potassium Chloride (Klor-Con M20) 60 meq PO ONETIME ONE Stop: 04/30/19 10:35 Last Admin: 04/30/19 12:13 Dose: 60 meq Potassium Chloride (Potassium Chloride Solution) 60 meq PO ONETIME ONE Stop: 05/01/19 12:01 Last Admin: 05/01/19 11:27 Dose: 60 meq Potassium Chloride (Klor-Con M20) 40 meq PO TID [facility] Stop: 05/04/19 09:01 Last Admin: 05/04/19 09:39 Dose: 40 meq Rivaroxaban (Xarelto) 15 mg PO DAILY [facility] Last Admin: 05/05/19 09:00 Dose: 15 mg Spironolactone (Aldactone) 25 mg PO DAILY [facility] Last Admin: 05/03/19 08:31 Dose: 25 mg Spironolactone (Aldactone) 25 mg PO ONETIME ONE Stop: 05/03/19 10:02 Last Admin: 05/03/19 11:14 Dose: 25 mg - Exam Quality Assessment: Supplemental Oxygen General: Alert HEENT: Pupils Equal Neck: Supple Lungs: Normal Respiratory Effort, Rales GI/Abdominal Exam: Normal Bowel Sounds, Soft, Non-Tender, No Distention Extremities: Normal Inspection, Pedal Edema Skin: Warm, Dry Neurological: No New Focal Deficit Psy/Mental Status: Alert, Normal Affect - Problem List & Annotations (1) Anemia SNOMED Code(s): 049777096 Code(s): D64.9 - ANEMIA, UNSPECIFIED Status: Acute Priority: Medium Current Visit: Yes Onset Date: 04/30/19 Qualifiers: Anemia type: due to chronic kidney disease Chronic kidney disease stage: stage 3 (moderate) Qualified Code(s): N18.3 - Chronic kidney disease, stage 3 (moderate); D63.1 - Anemia in chronic kidney disease Annotation/Comment:: anemia sec to anticoagulation with xarolto / plavix and asa asa held mild bleeding noted from hemmhroids (2) CHF (congestive heart failure), NYHA class II SNOMED Code(s): 489845097, 414131024 Code(s): I50.9 - HEART FAILURE, UNSPECIFIED Status: Acute Priority: High Current Visit: Yes Onset Date: 05/01/19 Qualifiers: Congestive heart failure type: unspecified Qualified Code(s): I50.9 - Heart failure, unspecified (3) Pneumonia SNOMED Code(s): 932195885 Code(s): J18.9 - PNEUMONIA, UNSPECIFIED ORGANISM Status: Acute Priority: High Current Visit: Yes Onset Date: 04/30/19 Qualifiers: Pneumonia type: due to unspecified organism Laterality: left Lung location: unspecified part of lung Qualified Code(s): J18.9 - Pneumonia, unspecified organism Annotation/Comment:: very slow improvmetna nd continued atelectasis and pleural effusion left (4) Chronic renal insufficiency, stage III (moderate) SNOMED Code(s): 189247534 Code(s): N18.3 - CHRONIC KIDNEY DISEASE, STAGE 3 (MODERATE) Status: Chronic Priority: Medium Current Visit: Yes Onset Date: 04/30/19 Annotation/Comment:: add spironolactone restart daily lasix p.o - Problem List Review Problem List Initiated/Reviewed/Updated: Yes - Plan Plan:: Pneumonia * Currently on Zosyn and vancomycin. 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 * White count did increase from 10.7-12.7 overnight. * C-reactive protein decreased from 13.4-9.0 * DC vancomycin * Recheck CBC and C-reactive protein in the morning. Anemia * Likely multifactorial to include blood loss and anemia of chronic disease * Iron and ferritin are both low * Mild to moderate epistaxis * Refusing transfusion * Add oral iron and vitamin C * Hold Plavix, aspirin, and Xarelto at this time * Patient did receive Xarelto this morning Chronic renal insufficiency * Creatinine has increased to 1.7, but this is stable with her baseline * DC vancomycin. Combination of vancomycin and Zosyn can worsen renal function and patient has no history of MRSA and a negative screen. * Follow CMP in the morning Chronic heart failure * Improved symptomatically * Down to 3 L nasal cannula and improved BNP * Continue spironolactone at 50 mg daily * Potassium 4.3 Prognosis: Guarded. Patient has a poor overall prognosis, guarded short-term prognosis. I discussed comfort care with her today and she wants to discuss it with her daughter. Patient does state she does not want to be resuscitated, therefore she has an appropriate DNR/DNI order. She does agree at this time to continue with antibiotics, but no blood products. Length of stay greater than 96 hours secondary to worsening anemia secondary to iron deficiency and anemia of chronic disease and multiple system failure.
[2019-05-05] MEDS: Acetaminophen 325 MG Tab PO PRN (14:05)
[2019-05-05] MEDS: Ascorbic Acid 500 MG Tab PO SCH (17:13)
[2019-05-05] MEDS: Ferrous Sulfate 325 MG Tab PO SCH (17:14)
[2019-05-05] MEDS: Cholecalciferol (Vitamin D3) 1,000 Unit Tab PO SCH (21:50)
[2019-05-05] MEDS: Clopidogrel 75 MG Tab PO SCH ×2 (21:51→21:53)
[2019-05-06] MEDS: Albuterol/Ipratropium 3.0-0.5 MG/3 ML Neb Soln NEB SCH ×2 (05:59→09:52)
[2019-05-06] MEDS: Piperacillin/Tazobactam 4.5 GM in Sodium Chloride 0.9% 100 ML IV SCH (06:25)
[2019-05-06] MEDS: Ascorbic Acid 500 MG Tab PO SCH ×2 (06:30→12:59)
[2019-05-06] MEDS: Calcium Carbonate/Vitamin D3 600 MG-200 Units Tab PO SCH (06:30)
[2019-05-06] MEDS: Ferrous Sulfate 325 MG Tab PO SCH ×2 (06:31→12:59)
[2019-05-06] MEDS: Insulin Lispro 100 Units/ML 3 ML Vial SUBCUT SCH ×2 (06:33→13:00)
[2019-05-06] MEDS: Furosemide 40 MG/4 ML VIAL IVPUSH SCH (09:03)
[2019-05-06] MEDS: Gabapentin 300 MG Cap PO SCH (09:03)
[2019-05-06] MEDS: Spironolactone 25 MG Tab PO SCH (09:03)
[2019-05-06] MEDS: Saccharomyces Boulardii (Probiotic) 250 MG Cap PO SCH (09:03)
[2019-05-06] MEDS: Metoprolol Succinate 50 MG Tab.ER PO SCH (09:03)
[2019-05-06 09:06] VITALS: BP 118/36
[2019-05-06] MEDS: Insulin Glarg,Human.Rec.Analog 100 UNIT/ML ML SUBCUT SCH (09:57)
[2019-05-06] MEDS: fentaNYL 12 MCG/HR Transdermal Patch TRDERM SCH (13:02)
--- NOTE | 2019-05-06 13:38 | PCM.DCSUM1 ---
Discharge Summary - Hospital Course HPI Initial Comments: 88 yo with chronic back pain, DMII, CHF admitted from ED after several days of fatigue, cough, hypoxemia, fever. CXR reveals bilteral interstitial infiltrates , somewhat improved since previous admission. Had several admissions with similar presentation. Admitted as IP for further treatment. Diagnosis: Stroke: No - Discharge Data Discharge Date: 05/06/19 Discharge Disposition: DC/Tfer to SNF 03 Condition: Good - Discharge Diagnosis/Problem(s) (1) Anemia SNOMED Code(s): 766186778 ICD Code: D64.9 - ANEMIA, UNSPECIFIED Status: Acute Priority: Medium Current Visit: Yes Onset Date: 04/30/19 Problem Details: anemia sec to anticoagulation with xarolto / plavix and asa asa held mild bleeding noted from hemmhroids Qualifiers: Anemia type: due to chronic kidney disease Chronic kidney disease stage: stage 3 (moderate) Qualified Code(s): N18.3 - Chronic kidney disease, stage 3 (moderate); D63.1 - Anemia in chronic kidney disease (2) CHF (congestive heart failure), NYHA class II SNOMED Code(s): 994900976, 467835810 ICD Code: I50.9 - HEART FAILURE, UNSPECIFIED Status: Acute Priority: High Current Visit: Yes Onset Date: 05/01/19 Qualifiers: Congestive heart failure type: unspecified Qualified Code(s): I50.9 - Heart failure, unspecified (3) Pneumonia SNOMED Code(s): 091159584 ICD Code: J18.9 - PNEUMONIA, UNSPECIFIED ORGANISM Status: Acute Priority : High Current Visit: Yes Onset Date: 04/30/19 Problem Details: very slow improvmetna nd continued atelectasis and pleural effusion left Qualifiers: Pneumonia type: due to unspecified organism Laterality: left Lung location: unspecified part of lung Qualified Code(s): J18.9 - Pneumonia, unspecified organism (4) Chronic renal insufficiency, stage III (moderate) SNOMED Code(s): 807346511 ICD Code: N18.3 - CHRONIC KIDNEY DISEASE, STAGE 3 (MODERATE) Status: Chronic Priority: Medium Current Visit: Yes Onset Date: 04/30/19 Problem Details: add spironolactone restart daily lasix p.o - Patient Summary/Data Consults: Consultations 04/30/19 10:27 PT Evaluation and Treatment [CONS] Routine 05/01/19 21:37 Consult to Respiratory Therapy [Respiratory Care Assess and Treatment] [CONS] Routine - Patient Instructions Diet: Heart Healthy Diet, Diabetic Diet Activity: As Tolerated Driving: Do Not Drive Showering/Bathing: May Shower Notify Provider of: Fever - Discharge Plan *PRESCRIPTION DRUG MONITORING PROGRAM REVIEWED*: No *COPY OF PRESCRIPTION DRUG MONITORING REPORT IN PATIENT [place]: No Prescriptions/Med Rec: Cefdinir [Omnicef] 300 mg PO Q12HR #6 cap Albuterol/Ipratropium [DuoNeb 3.0-0.5 MG/3 ML] 3 ml NEB QIDRT #120 neb Ascorbic Acid [Vitamin C] 250 mg PO TIDAC #90 tablet fentaNYL [Duragesic] 12 mcg TRDERM Q72H #2 patch Ferrous Sulfate 325 mg PO TIDMEALS #90 tablet Rivaroxaban [Xarelto] 10 mg PO DAILY #30 tablet Spironolactone [Aldactone] 50 mg PO DAILY #30 tablet Home Medications: Home Meds Clopidogrel [Plavix] 75 mg PO BEDTIME 10/20/15 [History] Cyanocobalamin (Vitamin B12) [Vitamin B12] 1,000 mcg PO DAILY 10/20/15 [History] Gabapentin [Neurontin] 600 mg PO TID 10/20/15 [History] Insulin Aspart [Novolog Flexpen] 11 unit SQ TID 10/20/15 [History] Sennosides/Docusate Sodium [Senna-Docusate Sodium] 1 tab PO DAILY 03/05/16 [ History] Acetaminophen 500 mg PO BEDTIME 07/12/16 [History] Acetaminophen [Tylenol Extra Strength] 1,000 mg PO Q6HR PRN 07/12/16 [History] Calcium Carbonate [Tums] 400 mg PO Q4H PRN 07/12/16 [History] Vitamin E 400 unit PO DAILY 07/12/16 [History] Loratadine [Claritin] 10 mg PO DAILY PRN 10/05/18 [History] Furosemide [Lasix] 20 mg PO DAILY 04/29/19 [History] Furosemide [Lasix] 20 mg PO DAILY PRN 04/29/19 [History] Insulin Degludec [Tresiba] 30 unit SQ DAILY 04/29/19 [History] MO/Pet,Wh/Phenylephrine/Shk Lv [Preparation H Oint] 1 appful RECTAL BID PRN 03/14 [History] Metoprolol Succinate 50 mg PO DAILY 04/29/19 [History] Polyethylene Glycol 3350 [MiraLAX] 17 gm PO DAILY PRN 04/29/19 [History] Sennosides [Senna] 8.6 mg PO DAILY PRN 04/29/19 [History] Sennosides/Docusate Sodium [Senexon-S Tablet] 1 tab PO DAILY PRN 04/29/19 [ History] Albuterol/Ipratropium [DuoNeb 3.0-0.5 MG/3 ML] 3 ml NEB QIDRT #120 neb 05/06/19 [Rx] Ascorbic Acid [Vitamin C] 250 mg PO TIDAC #90 tablet 05/06/19 [Rx] Cefdinir [Omnicef] 300 mg PO Q12HR #6 cap 05/06/19 [Rx] Ferrous Sulfate 325 mg PO TIDMEALS #90 tablet 05/06/19 [Rx] Remove Patch 1 ea TRDERM Q72H each 05/06/19 [Rx] Rivaroxaban [Xarelto] 10 mg PO DAILY #30 tablet 05/06/19 [Rx] Spironolactone [Aldactone] 50 mg PO DAILY #30 tablet 05/06/19 [Rx] fentaNYL [Duragesic] 12 mcg TRDERM Q72H #2 patch 05/06/19 [Rx] Oxygen Therapy Mode: Nasal Cannula (2 L) Oxygen Flow Rate (L/min): 2 Maintain SpO2% greater than: 90 Patient Handouts: Hypokalemia, Potassium Content of Foods, Heart Failure, Community-Acquired Pneumonia, Adult Forms: ED Department Discharge Referrals: Jorge Fry MD [Primary Care Provider] - 05/16/19 2:30 pm (Please follow up with Dr. Fry on SundayMay 16 at 1430.) - Discharge Summary/Plan Comment DC Time >30 min.: Yes Discharge Summary/Plan Comment: Patient has improved and is ready for discharge to a correction facility. Restart Xarelto at a lower dose of 10 mg a day secondary to her Hemoccult- positive stools and drop in her blood count which has stabilized. Restart Plavix at 75 mg a day and stop aspirin. Switch to Cefdinir 300 mg BID for 3 more days. Follow CBC as an outpatient. Restart home dose of insulin. - General Info Date of Service: 05/06/19 Admission Dx/Problem (Free Text: 88 yo with chronic back pain, DMII, CHF admitted from ED after several days of fatigue, cough, hypoxemia, fever. CXR reveals bilteral interstitial infiltrates, i/os -800 o2 5 liters n.c feels better eating better / less sob but slept only fair pain left arm better iv site okay lungs decreased bs lft base / few crackles cor rrrn abd benign ext. gross edema 2 plus loss muscle neuro grossly intact and weak ms arthritis extensive osteoporosis posture in bed lab reviewed hgn 9.6 bnp 2345 k 3.0 mg 1.8 na 135 creat 1.6 gfr 40 xray infiltrates little change and left pleural effusion unchanged / mild vasc congestion 05/03/19 afebrile feeling better vss and o2 at 3 liters with sats 91-93 %/ no weights positive fluid balance but uo off . orally appears hydrated lungs decreased wheezing and decreased bs l posterior c/w effusion cor rrr in sinus at 80/ edema little better abd benign eating well blood noted on wiping on xaralto/ asa and plavix hgn 8.2 and refuses transfusion iron and other labs coming back pneumonia improving on vanco and zosyn not covering legionella / switch to oral meds tomorrow and or sunday hypoxia long standing and severe and will require o2 wean at [facility] stable on daily lasix and added spironolactone dehydration resolved anorexia resolved anemia stop aspirin and may need to decrease xaralto dose await primary input. hx of cva chf severe on lasix and spironolactone and beta lorraine weakness severe needs roberto assist and needs p.t but recovery slow ma neldalkl low a and suppliment ca and mg boh 05/04/19 afebrile / doing better / having nosebleeds again vss. o2 increased 3 liter n.c sats decreased 90-93/ denies chest paina and or soria /sob / slept well / good appetite hr stable bs high despite starting long acting and on ss novolog 160-307. 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 Patient was given Xarelto this morning. Hemoglobin is down to 7.6 and patient continues to not want blood products. IV was established and she was given this morning's IV antibiotics of vancomycin and Zosyn. She did miss one dose last night. Patient states that she is feeling better, she is afebrile, and had 1 nosebleed. C-reactive protein is also decreased to 9.0 with increase in her white count from 10.7-12.7. Creatinine has increased from 1.4-1.7. May 06, 2019 Patient continues to improve. Hemoglobin has stabilized and even increased. Creatinine is stable at 1.8. Subjectively she states she is doing well and ready for discharge. Functional Status: Reports: Pain Controlled - Review of Systems General: Reports: No Symptoms HEENT: Reports: No Symptoms Pulmonary: Reports: No Symptoms Cardiovascular: Reports: No Symptoms - Patient Data Vitals - Most Recent: Last Vital Signs Temp 98.1 F 05/06/19 08:06 Pulse 97 05/06/19 09:03 Resp 22 H 05/06/19 08:06 BP 118/36 L 05/06/19 09:03 Pulse Ox 99 05/06/19 09:52 Weight - Most Recent: 150 lb 4.8 oz I&O - Last 24 hours: Intake & Output 05/05/19 05/06/19 05/06/19 22:59 06:59 14:59 Intake Total 800 296 120 Balance 800 296 120 Lab Results - Last 24 hrs: Laboratory Results - last 24 hr 05/02/19 05/05/19 05/05/19 Range/Units 05:30 16:59 17:57 WBC (3.98-10.04) K/mm3 RBC (3.98-5.22) M/mm3 Hgb (11.2-15.7) gm/L Hct (34.1-44.9) % MCV (79.4-94.8) fl MCH (25.6-32.2) pg MCHC (32.2-35.5) g/dl RDW Std Deviation (36.4-46.3) fL Plt Count (182-369) K/mm3 MPV (9.4-12.3) fl Neut % (Auto) (34.0-71.1) % Lymph % (Auto) (19.3-51.7) % [place] % (Auto) (4.7-12.5) % Eos % (Auto) (0.7-5.8) Baso % (Auto) (0.1-1.2) % Neut # (Auto) (1.56-6.13) K/mm3 Lymph # (Auto) (1.18-3.74) K/mm3 [place] # (Auto) (0.24-0.36) K/mm3 Eos # (Auto) (0.04-0.36) K/mm3 Baso # (Auto) (0.01-0.08) K/mm3 Manual Slide Review Sodium (136-145) mEq/L Potassium (3.5-5.1) mEq/L Chloride (98-107) mEq/L Carbon Dioxide (21-32) mEq/L Anion Gap (5-15) BUN (7-18) mg/dL Creatinine (0.55-1.02) mg/dL Est Cr Clr Drug Dosing mL/min Estimated GFR (MDRD) (>60) mL/min BUN/Creatinine Ratio (14-18) Glucose (83-115) mg/dL POC Glucose 54 L 81 L (83-110) mg/dL Calcium (8.5-10.1) mg/dL Magnesium (1.8-2.4) mg/dl Total Bilirubin (0.2-1.0) mg/dL AST (15-37) U/L ALT (14-59) U/L Alkaline Phosphatase (46-116) U/L C-Reactive Protein (<1.0) mg/dL Total Protein (6.4-8.2) g/dl Albumin (3.4-5.0) g/dl Globulin gm/dL Albumin/Globulin Ratio (1-2) Saoz-4-Pzdtdaprznvgj 3.5 H (0.6-2.4) mg/L 05/05/19 05/06/19 05/06/19 Range/Units 21:37 05:25 05:25 WBC 9.36 (3.98-10.04) K/mm3 RBC 2.87 L (3.98-5.22) M/mm3 Hgb 8.1 L (11.2-15.7) gm/L Hct 26.3 L (34.1-44.9) % MCV 91.6 (79.4-94.8) fl MCH 28.2 (25.6-32.2) pg MCHC 30.8 L (32.2-35.5) g/dl RDW Std Deviation 48.7 H (36.4-46.3) fL Plt Count 372 H (182-369) K/mm3 MPV 9.9 (9.4-12.3) fl Neut % (Auto) 67.0 (34.0-71.1) % Lymph % (Auto) 20.9 (19.3-51.7) % [place] % (Auto) 6.6 (4.7-12.5) % Eos % (Auto) 3.8 (0.7-5.8) Baso % (Auto) 0.2 (0.1-1.2) % Neut # (Auto) 6.26 H (1.56-6.13) K/mm3 Lymph # (Auto) 1.96 (1.18-3.74) K/mm3 [place] # (Auto) 0.62 H (0.24-0.36) K/mm3 Eos # (Auto) 0.36 (0.04-0.36) K/mm3 Baso # (Auto) 0.02 (0.01-0.08) K/mm3 Manual Slide Review Abnormal smear Sodium 139 (136-145) mEq/L Potassium 4.3 (3.5-5.1) mEq/L Chloride 101 (98-107) mEq/L Carbon Dioxide 29 (21-32) mEq/L Anion Gap 13.3 (5-15) BUN 18 (7-18) mg/dL Creatinine 1.8 H (0.55-1.02) mg/dL Est Cr Clr Drug Dosing 15.82 mL/min Estimated GFR (MDRD) 27 (>60) mL/min BUN/Creatinine Ratio 10.0 L (14-18) Glucose 163 H (83-115) mg/dL POC Glucose 334 H (83-110) mg/dL Calcium 8.9 (8.5-10.1) mg/dL Magnesium 2.0 (1.8-2.4) mg/dl Total Bilirubin 0.3 (0.2-1.0) mg/dL AST 21 (15-37) U/L ALT 25 (14-59) U/L Alkaline Phosphatase 66 (46-116) U/L C-Reactive Protein 9.6 H* (<1.0) mg/dL Total Protein 6.2 L (6.4-8.2) g/dl Albumin 2.1 L (3.4-5.0) g/dl Globulin 4.1 gm/dL Albumin/Globulin Ratio 0.5 L (1-2) Ulue-5-Roohfstrsdmiq (0.6-2.4) mg/L 05/06/19 05/06/19 Range/Units 06:23 11:09 WBC (3.98-10.04) K/mm3 RBC (3.98-5.22) M/mm3 Hgb (11.2-15.7) gm/L Hct (34.1-44.9) % MCV (79.4-94.8) fl MCH (25.6-32.2) pg MCHC (32.2-35.5) g/dl RDW Std Deviation (36.4-46.3) fL Plt Count (182-369) K/mm3 MPV (9.4-12.3) fl Neut % (Auto) (34.0-71.1) % Lymph % (Auto) (19.3-51.7) % [place] % (Auto) (4.7-12.5) % Eos % (Auto) (0.7-5.8) Baso % (Auto) (0.1-1.2) % Neut # (Auto) (1.56-6.13) K/mm3 Lymph # (Auto) (1.18-3.74) K/mm3 [place] # (Auto) (0.24-0.36) K/mm3 Eos # (Auto) (0.04-0.36) K/mm3 Baso # (Auto) (0.01-0.08) K/mm3 Manual Slide Review Sodium (136-145) mEq/L Potassium (3.5-5.1) mEq/L Chloride (98-107) mEq/L Carbon Dioxide (21-32) mEq/L Anion Gap (5-15) BUN (7-18) mg/dL Creatinine (0.55-1.02) mg/dL Est Cr Clr Drug Dosing mL/min Estimated GFR (MDRD) (>60) mL/min BUN/Creatinine Ratio (14-18) Glucose (83-115) mg/dL POC Glucose 192 H 372 H (83-110) mg/dL Calcium (8.5-10.1) mg/dL Magnesium (1.8-2.4) mg/dl Total Bilirubin (0.2-1.0) mg/dL AST (15-37) U/L ALT (14-59) U/L Alkaline Phosphatase (46-116) U/L C-Reactive Protein (<1.0) mg/dL Total Protein (6.4-8.2) g/dl Albumin (3.4-5.0) g/dl Globulin gm/dL Albumin/Globulin Ratio (1-2) Kpkc-2-Qwyqwjbdeyuhw (0.6-2.4) mg/L SONYA Results - Last 24 hrs: Microbiology 04/29/19 14:30 Aerobic Blood Culture - Preliminary Blood NO GROWTH AFTER 6 DAYS Anaerobic Blood Culture - Preliminary NO GROWTH AFTER 6 DAYS 04/29/19 14:25 Aerobic Blood Culture - Preliminary Blood NO GROWTH AFTER 6 DAYS Anaerobic Blood Culture - Preliminary NO GROWTH AFTER 6 DAYS Med Orders - Current: Current Medications Acetaminophen (Tylenol) 975 mg PO Q6H PRN PRN Reason: Pain Last Admin: 05/05/19 14:05 Dose: 325 mg Albuterol/Ipratropium (Duoneb 3.0-0.5 Mg/3 Ml) 3 ml NEB QIDRT [facility] Last Admin: 05/06/19 09:52 Dose: 3 ml Ascorbic Acid (Vitamin C) 250 mg PO TIDAC [facility] Last Admin: 05/06/19 12:59 Dose: 250 mg Aspirin (Halfprin) 81 mg PO DAILY [facility] Last Admin: 05/03/19 08:32 Dose: Not Given Calcium Carbonate (Calcium Carbonate/Vitamin D 600 Mg-200 Unit) 1 tab PO BIDMEALS [facility] Last Admin: 05/06/19 06:30 Dose: 1 tab Cholecalciferol (Vitamin D3) 1,000 units PO BEDTIME [facility] Last Admin: 05/05/19 21:50 Dose: 1,000 units Clopidogrel Bisulfate (Plavix) 75 mg PO BEDTIME [facility] Last Admin: 05/05/19 21:53 Dose: Not Given Fentanyl (Duragesic) 12 mcg TRDERM Q72H [facility] Last Admin: 05/06/19 13:02 Dose: 12 mcg Ferrous Sulfate (Ferrous Sulfate) 325 mg PO TIDMEALS [facility] Last Admin: 05/06/19 12:59 Dose: 325 mg Furosemide (Lasix) 40 mg IVPUSH DAILY [facility] Last Admin: 05/06/19 09:03 Dose: 40 mg Gabapentin (Neurontin) 300 mg PO TID [facility] Last Admin: 05/06/19 09:03 Dose: 300 mg Piperacillin Sod/Tazobactam (Sod 4.5 gm/ Sodium Chloride) 100 mls @ 25 mls/hr IV Q12H [facility] Last Admin: 05/06/19 06:25 Dose: 25 mls/hr Insulin Glargine (Lantus) 30 unit SUBCUT DAILY [facility] Last Admin: 05/06/19 09:57 Dose: 30 units Insulin Human Lispro (Humalog) 0 unit SUBCUT QIDACANDBED [facility]; Protocol Last Admin: 05/06/19 13:00 Dose: 10 units Metoprolol Succinate (Toprol Xl) 50 mg PO DAILY [facility] Last Admin: 05/06/19 09:03 Dose: 50 mg Miscellaneous Information (Remove Patch) 1 ea TRDERM Q72H [facility] Last Admin: 05/06/19 13:08 Dose: 1 ea Saccharomyces Boulardii (Florastor) 250 mg PO BID [facility] Last Admin: 05/06/19 09:03 Dose: 250 mg Senna/Docusate Sodium (Senna Plus) 1 tab PO DAILY PRN PRN Reason: Constipation Sodium Chloride (Saline Flush) 10 ml FLUSH ASDIRECTED PRN PRN Reason: Keep Vein Open Last Admin: 04/29/19 14:46 Dose: 10 ml Spironolactone (Aldactone) 50 mg PO DAILY [facility] Last Admin: 05/06/19 09:03 Dose: 50 mg Discontinued Medications Albuterol/Ipratropium (Duoneb 3.0-0.5 Mg/3 Ml) 3 ml NEB Q4HRRT PRN PRN Reason: sob/wheezing Last Admin: 05/01/19 11:43 Dose: 3 ml Cholecalciferol (Vitamin D3) 1,000 units PO DAILY [facility] Last Admin: 04/29/19 21:18 Dose: Not Given Furosemide (Lasix) 40 mg IVPUSH NOW ONE Stop: 04/30/19 18:42 Last Admin: 04/30/19 19:24 Dose: 40 mg Furosemide (Lasix) 40 mg IVPUSH NOW ONE Stop: 05/01/19 13:35 Last Admin: 05/01/19 14:30 Dose: 40 mg Furosemide (Lasix) 20 mg PO DAILY [facility] Last Admin: 05/04/19 10:11 Dose: Not Given Ceftriaxone Sodium 2 gm/ (Sodium Chloride) 100 mls @ 200 mls/hr IV NOW STA Stop: 04/29/19 15:15 Last Admin: 04/29/19 16:10 Dose: 200 mls/hr Sodium Chloride (Normal Saline) 1,000 mls @ 500 mls/hr IV ONETIME ONE Stop: 04/29/19 16:46 Last Admin: 04/29/19 16:09 Dose: 500 mls/hr Azithromycin 500 mg/ Sodium (Chloride) 250 mls @ 250 mls/hr IV Q24H [facility] Last Admin: 05/01/19 17:18 Dose: 250 mls/hr Sodium Chloride (Normal Saline) 1,000 mls @ 100 mls/hr IV ASDIRECTED [facility] Last Admin: 04/30/19 10:09 Dose: 100 mls/hr Vancomycin HCl 1 gm/Vancomycin HCl 250 mg/ Sodium Chloride 250 mls @ 100 mls/ hr IV ONETIME ONE Stop: 04/29/19 20:26 Last Admin: 04/29/19 21:16 Dose: 100 mls/hr Piperacillin Sod/Tazobactam (Sod 4.5 gm/ Sodium Chloride) 100 mls @ 25 mls/hr IV Q12H [facility] Last Admin: 04/30/19 09:51 Dose: 25 mls/hr Sodium Chloride (Normal Saline) Confirm Administered Dose 100 mls @ as directed .ROUTE .STK-MED ONE Stop: 04/29/19 18:55 Last Admin: 04/29/19 19:59 Dose: Not Given Piperacillin Sod/Tazobactam (Sod 4.5 gm/ Sodium Chloride) 100 mls @ 200 mls/hr IV ONETIME ONE Stop: 04/29/19 19:44 Last Admin: 04/29/19 19:19 Dose: 200 mls/hr Vancomycin HCl 1 gm/ Sodium (Chloride) 250 mls @ 250 mls/hr IV Q24H [facility] Last Admin: 05/03/19 21:43 Dose: Not Given Piperacillin Sod/Tazobactam (Sod 4.5 gm/ Sodium Chloride) 100 mls @ 25 mls/hr IV Q12H [facility] Last Admin: 05/03/19 21:08 Dose: 25 mls/hr Potassium Chloride 10 meq/ (Premix) 100 mls @ 100 mls/hr IV Q1H [facility] Stop: 05/01/19 11:59 Last Admin: 05/01/19 13:20 Dose: Not Given Magnesium Sulfate 2 gm/ Premix 50 mls @ 25 mls/hr IV ONETIME ONE Stop: 05/03/19 15:59 Last Admin: 05/03/19 16:15 Dose: 25 mls/hr Vancomycin HCl 1.25 gm/ Sodium (Chloride) 250 mls @ 250 mls/hr IV Q12H [facility] Vancomycin HCl 1.25 gm/ Sodium (Chloride) 250 mls @ 250 mls/hr IV Q24H [facility] Last Admin: 05/03/19 21:53 Dose: 250 mls/hr Vancomycin HCl 1 gm/Vancomycin HCl 250 mg/ Sodium Chloride 250 mls @ 166.667 mls/hr IV Q24H [facility] Last Admin: 05/04/19 17:23 Dose: 166.667 mls/hr Piperacillin Sod/Tazobactam (Sod 4.5 gm/ Sodium Chloride) 100 mls @ 25 mls/hr IV Q8H [facility] Last Admin: 05/05/19 05:51 Dose: 25 mls/hr Insulin Human Lispro (Humalog) 0 unit SUBCUT QIDACANDBED [facility]; Protocol Last Admin: 05/05/19 18:02 Dose: Not Given Magnesium Sulfate (Magnesium Sulfate 50%) 1 gm IM ONETIME ONE Stop: 05/03/19 12:13 Last Admin: 05/03/19 13:29 Dose: Not Given Piperacillin Sod/Tazobactam Sod (Piperacil-Tazobact) Confirm Administered Dose 4.5 gm .ROUTE .STK-MED ONE Stop: 04/30/19 09:30 Last Admin: 04/30/19 12:13 Dose: Not Given Potassium Chloride (Klor-Con M20) 40 meq PO ONETIME ONE Stop: 04/29/19 15:38 Last Admin: 04/29/19 16:11 Dose: 40 meq Potassium Chloride (Klor-Con M20) 60 meq PO ONETIME ONE Stop: 04/30/19 10:35 Last Admin: 04/30/19 12:13 Dose: 60 meq Potassium Chloride (Potassium Chloride Solution) 60 meq PO ONETIME ONE Stop: 05/01/19 12:01 Last Admin: 05/01/19 11:27 Dose: 60 meq Potassium Chloride (Klor-Con M20) 40 meq PO TID [facility] Stop: 05/04/19 09:01 Last Admin: 05/04/19 09:39 Dose: 40 meq Rivaroxaban (Xarelto) 15 mg PO DAILY [facility] Last Admin: 05/05/19 09:00 Dose: 15 mg Spironolactone (Aldactone) 25 mg PO DAILY [facility] Last Admin: 05/03/19 08:31 Dose: 25 mg Spironolactone (Aldactone) 25 mg PO ONETIME ONE Stop: 05/03/19 10:02 Last Admin: 05/03/19 11:14 Dose: 25 mg Vancomycin HCl (Pharmacy To Dose - Vancomycin) 0 dose .XX DAILY PRN PRN Reason: RX TO DOSE VANCO - Exam Quality Assessment: Reports: Supplemental Oxygen General: Reports: Alert, Oriented HEENT: Reports: Pupils Equal Neck: Reports: Supple Lungs: Reports: Clear to Auscultation, Normal Respiratory Effort Cardiovascular: Reports: Regular Rate, Regular Rhythm GI/Abdominal Exam: Normal Bowel Sounds, Soft, Non-Tender, No Distention Extremities: Normal Inspection, No Pedal Edema
== END 2019-05-06 13:33 | DRG 193 ==
LOC: JD.ED 13:39 → JD.MS 16:33
PROVIDERS: ADMIT Internal Medicine; ATTEND Internal Medicine
DX: R53.83 Other fatigue (principal); J18.9 Pneumonia, unspecified organism; I50.43 Acute on chronic combined systolic (congestive) and diastolic (congestive) heart failure; I13.0 Hypertensive heart and chronic kidney disease with heart failure and stage 1 through stage 4 chronic kidney disease, or unspecified chronic kidney disease; M54.9 Dorsalgia, unspecified; K59.00 Constipation, unspecified; G89.29 Other chronic pain; E11.22 Type 2 diabetes mellitus with diabetic chronic kidney disease; N18.9 Chronic kidney disease, unspecified; Z66 Do not resuscitate; F03.90 Unspecified dementia, unspecified severity, without behavioral disturbance, psychotic disturbance, mood disturbance, and anxiety; H54.7 Unspecified visual loss; Z79.01 Long term (current) use of anticoagulants; I48.91 Unspecified atrial fibrillation; F32.9 Major depressive disorder, single episode, unspecified; F01.50 Vascular dementia, unspecified severity, without behavioral disturbance, psychotic disturbance, mood disturbance, and anxiety; E87.6 Hypokalemia; N18.3 Chronic kidney disease, stage 3 (moderate); D63.1 Anemia in chronic kidney disease; M54.30 Sciatica, unspecified side; S20.229A Contusion of unspecified back wall of thorax, initial encounter; E83.42 Hypomagnesemia; E86.0 Dehydration; E11.649 Type 2 diabetes mellitus with hypoglycemia without coma; Z86.73 Personal history of transient ischemic attack (TIA), and cerebral infarction without residual deficits; Z88.1 Allergy status to other antibiotic agents; Z79.4 Long term (current) use of insulin; Z79.82 Long term (current) use of aspirin; Z79.899 Other long term (current) drug therapy; Z90.49 Acquired absence of other specified parts of digestive tract
CPT/HCPCS: 36415; 36600; 71046; 73080; 73090; 80053; 81001; 82803; 83605; 83735; 85007; 85027; 86140; 86738; 87040 ×2; 87899; 93005; 96365; 99285; A9270; J0696; J7030; J7040; 71045; 71045-26; 80048; 80202; 82232; 82272; 82947; 82962; 83540; 83880; 84100; 84443; 84466; 84484; 85025; 85045; 87493; 87641; 93010; 94640; 94667; 94668; 94761; 97110-GP; 97162-GP; 97530-GP; 99283; J0456; J1815-GY; J1940; J2543; J3370; J3475; J3480; J7050; J7620-GY

== ENCOUNTER 2020-08-31 14:11 | Emergency (ER) | payer MEDICARE, OTHER ==
[2020-08-31] MEDS ORDERED: Sodium Chloride 0.9% 10 ML Syringe FLUSH PRN (14:53)
--- NOTE | 2020-08-31 17:00 | EDM.PDOC ---
ED HPI GENERAL MEDICAL PROBLEM - General Chief Complaint: Fever Stated Complaint: [facility] Time Seen by Provider: 08/31/20 14:21 Source of Information: Reports: Patient, EMS, [facility] Records History Limitations: Reports: No Limitations - History of Present Illness INITIAL COMMENTS - FREE TEXT/NARRATIVE: The patient presents by [facility] from [facility] for fever and generalized weakness. Her oxygen sats were low at the halfway. They were 95% here. She did fall but she has no pain. She is not on any blood thinners. She has no headache, chills, cough, chest pain, SOB, abdominal pain, nausea, vomiting or dysuria. Onset: Gradual Duration: Hour(s): Improves with: Reports: None Worsens with: Reports: None Associated Symptoms: Reports: Fever/Chills. Denies: Chest Pain, Cough, Headaches, Nausea/Vomiting, Shortness of Breath - Related Data Allergies Allergy/AdvReac Type Severity Reaction Status Date / Time levofloxacin [From Levaquin] Allergy Itching Verified 08/31/20 14:29 Home Meds: Home Meds Clopidogrel [Plavix] 75 mg PO BEDTIME 10/20/15 [History] Gabapentin [Neurontin] 600 mg PO BID 10/20/15 [History] Insulin Aspart [Novolog Flexpen] 13 unit SQ TID 10/20/15 [History] Acetaminophen 500 mg PO BEDTIME 07/12/16 [History] Calcium Carbonate [Tums] 400 mg PO Q4H PRN 07/12/16 [History] Vitamin E 400 unit PO DAILY 07/12/16 [History] Furosemide [Lasix] 20 mg PO DAILY 04/29/19 [History] Furosemide [Lasix] 20 mg PO DAILY PRN 04/29/19 [History] Insulin Degludec [Tresiba] 20 unit SQ DAILY 04/29/19 [History] MO/Pet,Wh/Phenylephrine/Shk Lv [Preparation H Oint] 1 appful RECTAL BID PRN 04/29/19 [History] Metoprolol Succinate 50 mg PO DAILY 04/29/19 [History] polyethylene glycoL 3350 [MiraLAX] 17 gm PO DAILY PRN 04/29/19 [History] Albuterol/Ipratropium [DuoNeb 3.0-0.5 MG/3 ML] 3 ml NEB QIDRT #120 neb 05/06/19 [Rx] Spironolactone [Aldactone] 50 mg PO DAILY #30 tablet 05/06/19 [Rx] Insulin Aspart [NovoLOG] 1 dose SUBCUT TID 08/31/20 [History] Past Medical History HEENT History: Reports: Impaired Vision Other HEENT History: dysphagia Cardiovascular History: Reports: Arrhythmia, Heart Failure, Hypertension Other Cardiovascular History: Afib, anemia Respiratory History: Reports: Other (See Below) Other Respiratory History: hypoxemia Gastrointestinal History: Reports: Chronic Constipation Other Gastrointestinal History: dysphagia Genitourinary History: Reports: Chronic Renal Insuffiency, Retention, 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: Musculoskeletal History: Reports: Back Pain, Chronic Other Musculoskeletal History: muscle weakness Neurological History: Reports: TIA, Other (See Below) Other Neuro History: cerebral infarct; neuralgia Psychiatric History: Reports: Depression Other Psychiatric History: vascular dementia Endocrine/Metabolic History: Reports: Diabetes, Type II Hematologic History: Reports: Anemia Oncologic (Cancer) History: Reports: Other (See Below) Other Oncologic History: unknown skin cancer Dermatologic History: Reports: Other (See Below) Other Dermatologic History: previous supspected skin cancer - Past Surgical History GI Surgical History: Reports: Cholecystectomy Social & Family History - Family History Family Medical History: Noncontributory - Tobacco Use Smoking Status *Q: Unknown Ever Smoked - Caffeine Use Caffeine Use: Reports: None ED ROS GENERAL - Review of Systems Review Of Systems: See Below Constitutional: Reports: Fever HEENT: Reports: No Symptoms Respiratory: Reports: No Symptoms Cardiovascular: Reports: No Symptoms Endocrine: Reports: No Symptoms GI/Abdominal: Reports: No Symptoms : Reports: No Symptoms ED EXAM, GENERAL - Physical Exam Exam: See Below Exam Limited By: No Limitations General Appearance: Alert, No Apparent Distress Ears: Normal External Exam Nose: Normal Inspection Head: Atraumatic, Normocephalic Neck: Normal Inspection Respiratory/Chest: No Respiratory Distress, Lungs Clear, Normal Breath Sounds Cardiovascular: Regular Rate, Rhythm, No Edema, No Murmur GI/Abdominal: Soft, Non-Tender, No Organomegaly, No Mass Back Exam: Normal Inspection Extremities: Normal Inspection Course - Vital Signs Last Recorded V/S: Last Vital Signs Temp 98.4 F 08/31/20 15:01 Pulse 75 08/31/20 15:01 Resp 21 H 08/31/20 15:01 BP 122/60 10/06/20 15:01 Pulse Ox 88 L 08/31/20 15:01 - Orders/Labs/Meds Orders: Active Orders 24 hr Category Date Time Status Cardiac Monitoring [RC] . DIRECTED Care 08/31/20 14:53 Active Oxygen Therapy [RC] PRN Care 08/31/20 14:53 Active Peripheral IV Care [RC] . DIRECTED Care 08/31/20 14:53 Active Chest 1V Frontal [CR] Stat Exams 08/31/20 14:54 Taken Head wo Cont [CT] Stat Exams 08/31/20 14:55 Taken CULTURE BLOOD [BC] Stat Lab 08/31/20 15:20 Received Sodium Chloride 0.9% [Saline Flush] Med 08/31/20 14:53 Active 10 ml FLUSH ASDIRECTED PRN Blood Culture x2 Reflex Set [OM.PC] Stat Oth 08/31/20 14:54 Ordered Peripheral IV Insertion Adult [OM.PC] Stat Oth 08/31/20 14:53 Ordered Medication Orders Sodium Chloride (Saline Flush) 10 ml FLUSH ASDIRECTED PRN PRN Reason: Keep Vein Open Last Admin: 08/31/20 15:07 Dose: 10 ml Documented by: [place] Labs: Laboratory Tests 08/31/20 08/31/20 08/31/20 Range/Units 15:00 15:00 15:00 WBC 14.36 H (3.98-10.04) K/mm3 RBC 4.03 (3.98-5.22) M/mm3 Hgb 12.1 D (11.2-15.7) gm/dl Hct 38.6 (34.1-44.9) % MCV 95.8 H D (79.4-94.8) fl MCH 30.0 (25.6-32.2) pg MCHC 31.3 L (32.2-35.5) g/dl RDW Std Deviation 51.4 H (36.4-46.3) fL Plt Count 238 D (182-369) K/mm3 MPV 10.2 (9.4-12.3) fl Neut % (Auto) 80.8 H (34.0-71.1) % Lymph % (Auto) 10.0 L (19.3-51.7) % Thayer % (Auto) 7.9 (4.7-12.5) % Eos % (Auto) 0.8 (0.7-5.8) Baso % (Auto) 0.2 (0.1-1.2) % Neut # (Auto) 11.60 H (1.56-6.13) K/mm3 Lymph # (Auto) 1.44 (1.18-3.74) K/mm3 Thayer # (Auto) 1.13 H (0.24-0.36) K/mm3 Eos # (Auto) 0.11 (0.04-0.36) K/mm3 Baso # (Auto) 0.03 (0.01-0.08) K/mm3 Manual Slide Review Abnormal smear PT 10.3 (9.7-11.7) SECONDS INR 0.96 APTT 26 (22-31) SECONDS D-Dimer, Quantitative 1.09 H (0.19-0.50) mg/L Sodium 140 (136-145) mEq/L Potassium 3.8 (3.5-5.1) mEq/L Chloride 102 (98-107) mEq/L Carbon Dioxide 30 (21-32) mEq/L Anion Gap 11.8 (5-15) BUN 16 (7-18) mg/dL Creatinine 1.7 H (0.55-1.02) mg/dL Est Cr Clr Drug Dosing 16.43 mL/min Estimated GFR (MDRD) 28 (>60) mL/min BUN/Creatinine Ratio 9.4 L (14-18) Glucose 104 (83-115) mg/dL Lactic Acid (0.4-2.0) mmol/L Calcium 8.7 (8.5-10.1) mg/dL Ferritin (8-252) ng/ml Total Bilirubin 0.6 (0.2-1.0) mg/dL AST 11 L (15-37) U/L ALT 15 (14-59) U/L Alkaline Phosphatase 66 (46-116) U/L Lactate Dehydrogenase 186 (81-234) U/L C-Reactive Protein 8.7 H* (<1.0) mg/dL Total Protein 6.9 (6.4-8.2) g/dl Albumin 3.3 L (3.4-5.0) g/dl Globulin 3.6 gm/dL Albumin/Globulin Ratio 0.9 L (1-2) Urine Color (Yellow) Urine Appearance (Clear) Urine pH (5.0-8.0) Ur Specific [place] (1.005-1.030) Urine Protein (Negative) Urine Glucose (UA) (Negative) Urine Ketones (Negative) Urine Occult Blood (Negative) Urine Nitrite (Negative) Urine Bilirubin (Negative) Urine Urobilinogen (0.2-1.0) Ur Leukocyte Esterase (Negative) U Hyaline Cast (Auto) (0-5) /lpf Urine RBC (0-5) /hpf Urine WBC (0-5) /hpf Ur Squamous Epith Cells (0-5) /hpf Urine Bacteria (FEW) /hpf Urine Mucus (FEW) /hpf SARS-CoV-2 RNA (HAYDE) (NEGATIVE) 08/31/20 08/31/20 08/31/20 Range/Units 15:00 15:20 16:19 WBC (3.98-10.04) K/mm3 RBC (3.98-5.22) M/mm3 Hgb (11.2-15.7) gm/dl Hct (34.1-44.9) % MCV (79.4-94.8) fl MCH (25.6-32.2) pg MCHC (32.2-35.5) g/dl RDW Std Deviation (36.4-46.3) fL Plt Count (182-369) K/mm3 MPV (9.4-12.3) fl Neut % (Auto) (34.0-71.1) % Lymph % (Auto) (19.3-51.7) % Thayer % (Auto) (4.7-12.5) % Eos % (Auto) (0.7-5.8) Baso % (Auto) (0.1-1.2) % Neut # (Auto) (1.56-6.13) K/mm3 Lymph # (Auto) (1.18-3.74) K/mm3 Thayer # (Auto) (0.24-0.36) K/mm3 Eos # (Auto) (0.04-0.36) K/mm3 Baso # (Auto) (0.01-0.08) K/mm3 Manual Slide Review PT (9.7-11.7) SECONDS INR APTT (22-31) SECONDS D-Dimer, Quantitative (0.19-0.50) mg/L Sodium (136-145) mEq/L Potassium (3.5-5.1) mEq/L Chloride (98-107) mEq/L Carbon Dioxide (21-32) mEq/L Anion Gap (5-15) BUN (7-18) mg/dL Creatinine (0.55-1.02) mg/dL Est Cr Clr Drug Dosing mL/min Estimated GFR (MDRD) (>60) mL/min BUN/Creatinine Ratio (14-18) Glucose (83-115) mg/dL Lactic Acid 1.2 (0.4-2.0) mmol/L Calcium (8.5-10.1) mg/dL Ferritin 92 (8-252) ng/ml Total Bilirubin (0.2-1.0) mg/dL AST (15-37) U/L ALT (14-59) U/L Alkaline Phosphatase (46-116) U/L Lactate Dehydrogenase (81-234) U/L C-Reactive Protein (<1.0) mg/dL Total Protein (6.4-8.2) g/dl Albumin (3.4-5.0) g/dl Globulin gm/dL Albumin/Globulin Ratio (1-2) Urine Color (Yellow) Urine Appearance (Clear) Urine pH (5.0-8.0) Ur Specific [place] (1.005-1.030) Urine Protein (Negative) Urine Glucose (UA) (Negative) Urine Ketones (Negative) Urine Occult Blood (Negative) Urine Nitrite (Negative) Urine Bilirubin (Negative) Urine Urobilinogen (0.2-1.0) Ur Leukocyte Esterase (Negative) U Hyaline Cast (Auto) (0-5) /lpf Urine RBC (0-5) /hpf Urine WBC (0-5) /hpf Ur Squamous Epith Cells (0-5) /hpf Urine Bacteria (FEW) /hpf Urine Mucus (FEW) /hpf SARS-CoV-2 RNA (HAYDE) Negative (NEGATIVE) 08/31/20 Range/Units 17:28 WBC (3.98-10.04) K/mm3 RBC (3.98-5.22) M/mm3 Hgb (11.2-15.7) gm/dl Hct (34.1-44.9) % MCV (79.4-94.8) fl MCH (25.6-32.2) pg MCHC (32.2-35.5) g/dl RDW Std Deviation (36.4-46.3) fL Plt Count (182-369) K/mm3 MPV (9.4-12.3) fl Neut % (Auto) (34.0-71.1) % Lymph % (Auto) (19.3-51.7) % Thayer % (Auto) (4.7-12.5) % Eos % (Auto) (0.7-5.8) Baso % (Auto) (0.1-1.2) % Neut # (Auto) (1.56-6.13) K/mm3 Lymph # (Auto) (1.18-3.74) K/mm3 Thayer # (Auto) (0.24-0.36) K/mm3 Eos # (Auto) (0.04-0.36) K/mm3 Baso # (Auto) (0.01-0.08) K/mm3 Manual Slide Review PT (9.7-11.7) SECONDS INR APTT (22-31) SECONDS D-Dimer, Quantitative (0.19-0.50) mg/L Sodium (136-145) mEq/L Potassium (3.5-5.1) mEq/L Chloride (98-107) mEq/L Carbon Dioxide (21-32) mEq/L Anion Gap (5-15) BUN (7-18) mg/dL Creatinine (0.55-1.02) mg/dL Est Cr Clr Drug Dosing mL/min Estimated GFR (MDRD) (>60) mL/min BUN/Creatinine Ratio (14-18) Glucose (83-115) mg/dL Lactic Acid (0.4-2.0) mmol/L Calcium (8.5-10.1) mg/dL Ferritin (8-252) ng/ml Total Bilirubin (0.2-1.0) mg/dL AST (15-37) U/L ALT (14-59) U/L Alkaline Phosphatase (46-116) U/L Lactate Dehydrogenase (81-234) U/L C-Reactive Protein (<1.0) mg/dL Total Protein (6.4-8.2) g/dl Albumin (3.4-5.0) g/dl Globulin gm/dL Albumin/Globulin Ratio (1-2) Urine Color Yellow (Yellow) Urine Appearance Clear (Clear) Urine pH 7.0 (5.0-8.0) Ur Specific [place] 1.020 (1.005-1.030) Urine Protein Negative (Negative) Urine Glucose (UA) Negative (Negative) Urine Ketones Negative (Negative) Urine Occult Blood Negative (Negative) Urine Nitrite Negative (Negative) Urine Bilirubin Negative (Negative) Urine Urobilinogen 0.2 (0.2-1.0) Ur Leukocyte Esterase Negative (Negative) U Hyaline Cast (Auto) 5-10 H (0-5) /lpf Urine RBC Not seen (0-5) /hpf Urine WBC 0-5 (0-5) /hpf Ur Squamous Epith Cells 0-5 (0-5) /hpf Urine Bacteria Many H (FEW) /hpf Urine Mucus Not seen (FEW) /hpf SARS-CoV-2 RNA (HAYDE) (NEGATIVE) Meds: Medications Generic Name Dose Route Start Last Admin Trade Name Freq PRN Reason Stop Dose Admin Sodium Chloride 10 ml 08/31/20 14:53 08/31/20 15:07 Saline Flush FLUSH 10 ml ASDIRECTED PRN Administration Keep Vein Open - Re-Assessments/Exams Free Text/Narrative Re-Assessment/Exam: 08/31/20 17:58 I ordered an IV saline lock, CXR, CT of her head, labs, UA and COVID 19. Her WBC is elevated at 14.36. Her D-dimer was elevated but consistent with her age. Her creatinine was elevated at 1.7. Her CRP was elevated at 8.7. Her UA shows no UTI. Her COVID 19 was negative. Her CXR shows probable left lower lobe atelectasis or scarring. Concern for early congestive heart failure. Her head CT shows senescent changes noted. No acute intracranial abnormality. I am not seeing any infection. Her WBC is elevated. That will need to be rechecked. Her COVID 19 is negative. Departure - Departure Time of Disposition: 18:05 Disposition: Home, Self-Care 01 Condition: Good Clinical Impression: Renal insufficiency Leukocytosis Qualifiers: Leukocytosis type: unspecified Qualified Code(s): D72.829 - Elevated white blood cell count, unspecified Fall Qualifiers: Encounter type: subsequent encounter Qualified Code(s): W19.XXXD - Unspecified fall, subsequent encounter - Discharge Information *PRESCRIPTION DRUG MONITORING PROGRAM REVIEWED*: Not Applicable *COPY OF PRESCRIPTION DRUG MONITORING REPORT IN PATIENT [place]: Not Applicable Referrals: Dudley Winchester MD [Primary Care Provider] - 1 Week Forms: ED Department Discharge Additional Instructions: Take your medication as prescribed. Please return if you are worse. Sepsis Event Note (ED) - Evaluation Sepsis Screening Result: No Definite Risk - Focused Exam Vital Signs: Vital Signs Temp Pulse Resp BP Pulse Ox 08/31/20 15:01 98.4 F 75 21 H 122/60 88 L 08/31/20 14:26 99.2 F 78 20 124/54 L 95 - My Orders Last 24 Hours: My Active Orders 08/31/20 14:53 Cardiac Monitoring [RC] . DIRECTED Oxygen Therapy [RC] PRN Peripheral IV Care [RC] . DIRECTED Sodium Chloride 0.9% [Saline Flush] 10 ml FLUSH ASDIRECTED PRN Peripheral IV Insertion Adult [OM.PC] Stat 08/31/20 14:54 Chest 1V Frontal [CR] Stat Blood Culture x2 Reflex Set [OM.PC] Stat 08/31/20 14:55 Head wo Cont [CT] Stat 08/31/20 15:20 CULTURE BLOOD [BC] Stat - Assessment/Plan Last 24 Hours: My Active Orders 08/31/20 14:53 Cardiac Monitoring [RC] . DIRECTED Oxygen Therapy [RC] PRN Peripheral IV Care [RC] . DIRECTED Sodium Chloride 0.9% [Saline Flush] 10 ml FLUSH ASDIRECTED PRN Peripheral IV Insertion Adult [OM.PC] Stat 08/31/20 14:54 Chest 1V Frontal [CR] Stat Blood Culture x2 Reflex Set [OM.PC] Stat 08/31/20 14:55 Head wo Cont [CT] Stat 08/31/20 15:20 CULTURE BLOOD [BC] Stat
[2020-08-31 18:20] VITALS: BP 140/70; PULSE 71
--- NOTE | 2020-09-28 14:47 | CR ---
PROCEDURE INFORMATION: Exam: XR Chest, 1 View Exam date and time: 08/31/2020 3:15 PM Age: 89 years old Clinical indication: Chest pain TECHNIQUE: Imaging protocol: XR of the chest Views: 1 view. COMPARISON: DX Chest 2V 05/04/2019 11:18 AM FINDINGS: Lungs: Poor inspiratory effort with somewhat diminished lung volumes. Pulmonary vascularity appears slightly redistributed. Chronic appearing bilateral lung parenchymal interstitial opacities present. Patient is somewhat rotated to the left. Bibasilar atelectasis and scarring. Improvement in aeration of left lung base. Pleural space: Probable trace left pleural effusion. Heart/Mediastinum: No change mild cardiomegaly. Atheromatous calcifications of aorta. Bones/joints: Osteopenia. Other findings: There is right hilar fullness likely due to hypoinflation and accentuated by patient rotation. Overlying EKG leads. IMPRESSION: Bilateral lower lobe atelectasis and/or scarring with probable early congestive heart failure/fluid overload. Remainder of findings described as above. Thank you for allowing us to participate in the care of your patient. Dictated and Authenticated by: Doc Broderick MD 09/27/2020 11:09 PM Central Time ([place] & [place]) WILMA
--- NOTE | 2020-09-28 14:48 | CT ---
PROCEDURE INFORMATION: Exam: CT Head Without Contrast Exam date and time: 08/31/2020 3:39 PM Age: 89 years old Clinical indication: Injury or trauma; Fall; Concussion/head injury; Consciousness not specified TECHNIQUE: Imaging protocol: Computed tomography of the head without contrast. COMPARISON: No relevant prior studies available. FINDINGS: Brain: Cerebral volume loss noted. Scattered areas of decreased attenuation in the deep periventricular white matter consistent with small vessel ischemic change. No evidence for acute intracranial hemorrhage. Cerebral ventricles: No hydrocephalus. Bones/joints: No acute calvarial fracture. Paranasal sinuses: Visualized sinuses are unremarkable. No fluid levels. Mastoid air cells: Visualized mastoid air cells are well aerated. Soft tissues: Unremarkable. IMPRESSION: Senescent changes noted. No acute intracranial abnormality. Remainder of findings described as above. Thank you for allowing us to participate in the care of your patient. Dictated and Authenticated by: Doc Broderick MD 09/27/2020 11:21 PM Central Time ([place] & [place]) [place]ILMA
== END 2020-08-31 18:36 | disposition home or self-care (01) ==
LOC: JD.ED 14:11
DX: D72.829 Elevated white blood cell count, unspecified (principal); I13.0 Hypertensive heart and chronic kidney disease with heart failure and stage 1 through stage 4 chronic kidney disease, or unspecified chronic kidney disease; I50.9 Heart failure, unspecified; N18.9 Chronic kidney disease, unspecified; F01.50 Vascular dementia, unspecified severity, without behavioral disturbance, psychotic disturbance, mood disturbance, and anxiety; I48.91 Unspecified atrial fibrillation; Z88.1 Allergy status to other antibiotic agents; Z79.4 Long term (current) use of insulin; Z79.02 Long term (current) use of antithrombotics/antiplatelets; Z79.899 Other long term (current) drug therapy; Z86.73 Personal history of transient ischemic attack (TIA), and cerebral infarction without residual deficits; Z20.828 Contact with and (suspected) exposure to other viral communicable diseases
CPT/HCPCS: 36415; 70450; 71045; 80053; 81001; 82728; 83605; 83615; 85025; 85379; 85610; 85730; 86140; 87040; 99285; U0002; 99283

== ENCOUNTER 2021-01-03 17:20 | Inpatient (IN) | payer MEDICARE, OTHER ==
--- NOTE | 2021-01-03 18:00 | EDM.PDOC ---
<Heriberto Klein - Last Filed: 01/04/21 19:09> ED HPI GENERAL MEDICAL PROBLEM - General Chief Complaint: Lower Extremity Injury/Pain Stated Complaint: [facility] Time Seen by Provider: 01/03/21 17:21 - History of Present Illness INITIAL COMMENTS - FREE TEXT/NARRATIVE: 89-year-old female brought in by EMS with a injury to her left elbow and hip. Patient fell she thinks her hip gave out or possibly her blood sugar dropped after she got up from a chair to walk to the bathroom. This occurred at long term home. This occurred just prior to arrival. Patient also hit her head and she is on Plavix. She is not aware of any loss of consciousness. EMS thought she had a skin tear on her left elbow. Patient denies significant left elbow pain however is not fully moving this.. Patient denies any other injury associated with this most unfortunate mishap. Her hip is the the main issue she cannot move her hip EMS did report that it was shortened and externally rotated. Left Hip Pain Score (Numeric/FACES): 10 - Related Data Allergies Allergy/AdvReac Type Severity Reaction Status Date / Time levofloxacin [From Levaquin] Allergy Itching Verified 01/03/21 19:06 Home Meds: Home Meds Clopidogrel [Plavix] 75 mg PO DAILY 10/20/15 [History] Gabapentin [Neurontin] 600 mg PO BID 10/20/15 [History] Insulin Aspart [Novolog Flexpen] 13 unit SQ TID 10/20/15 [History] Acetaminophen 500 mg PO BEDTIME 07/12/16 [History] Calcium Carbonate [Tums] 400 mg PO Q4H PRN 07/12/16 [History] Vitamin E 400 unit PO DAILY 07/12/16 [History] Furosemide [Lasix] 20 mg PO ASDIRECTED PRN 04/29/19 [History] Furosemide [Lasix] 20 mg PO DAILY 04/29/19 [History] Insulin Degludec [Tresiba] 20 unit SQ BEDTIME 04/29/19 [History] MO/Pet,Wh/Phenylephrine/Shk Lv [Preparation H Oint] 1 appful RECTAL ASDIRECTED PRN 04/29/19 [History] Metoprolol Succinate 50 mg PO DAILY 04/29/19 [History] polyethylene glycoL 3350 [MiraLAX] 17 gm PO ASDIRECTED PRN 04/29/19 [History] Albuterol/Ipratropium [DuoNeb 3.0-0.5 MG/3 ML] 3 ml NEB QIDRT #120 neb 05/06/19 [Rx] Spironolactone [Aldactone] 50 mg PO DAILY #30 tablet 05/06/19 [Rx] Insulin Aspart [NovoLOG] 1 dose SUBCUT TID 08/31/20 [History] Past Medical History HEENT History: Reports: Impaired Vision Other HEENT History: dysphagia Cardiovascular History: Reports: Arrhythmia, Heart Failure, Hypertension Other Cardiovascular History: Afib, anemia Respiratory History: Reports: Other (See Below) Other Respiratory History: hypoxemia Gastrointestinal History: Reports: Chronic Constipation Other Gastrointestinal History: dysphagia Genitourinary History: Reports: Chronic Renal Insuffiency, Retention, Urinary [employer] History: Reports: Musculoskeletal History: Reports: Back Pain, Chronic Other Musculoskeletal History: muscle weakness Neurological History: Reports: TIA, Other (See Below) Other Neuro History: cerebral infarct; neuralgia Psychiatric History: Reports: Depression Other Psychiatric History: vascular dementia Endocrine/Metabolic History: Reports: Diabetes, Type II Hematologic History: Reports: Anemia Oncologic (Cancer) History: Reports: Other (See Below) Other Oncologic History: unknown skin cancer Dermatologic History: Reports: Other (See Below) Other Dermatologic History: previous supspected skin cancer - Past Surgical History GI Surgical History: Reports: Cholecystectomy Social & Family History - Family History Family Medical History: No Pertinent Family History - Tobacco Use Tobacco Use Status *Q: Never Tobacco User Second Hand Smoke Exposure: No - Caffeine Use Caffeine Use: Reports: Coffee - Recreational Drug Use Recreational Drug Use: No Review of Systems - Review of Systems Review Of Systems: See Below Constitutional: Reports: No Symptoms Eyes: Reports: No Symptoms Ears: Reports: No Symptoms Nose: Reports: No Symptoms Mouth/Throat: Reports: No Symptoms Respiratory: Reports: No Symptoms Cardiovascular: Reports: No Symptoms GI/Abdominal: Reports: No Symptoms Genitourinary: Reports: No Symptoms Musculoskeletal: Reports: No Symptoms Skin: Reports: No Symptoms Neurological: Reports: Headache Psychiatric: Reports: No Symptoms ED EXAM, GENERAL - Physical Exam Exam: See Below Exam Limited By: No Limitations General Appearance: Alert, No Apparent Distress Eye Exam: Bilateral Eye: EOMI, Normal Inspection, PERRL Ears: Normal External Exam, Normal Canal, Hearing Grossly Normal, Normal TMs Nose: Normal Inspection, Normal Mucosa, No Blood Throat/Mouth: Normal Inspection, Normal Lips, Normal Oropharynx, Normal Voice, No Airway Compromise Head: Other (She has area of swelling and tenderness over the left occiput) Neck: Normal Inspection, Supple, Non-Tender. No: Lymphadenopathy (L), Lymphadenopathy (R), Tender Lateral, Tender Midline Respiratory/Chest: No Respiratory Distress, Lungs Clear, Normal Breath Sounds Cardiovascular: Regular Rate, Rhythm, No Edema, No Murmur GI/Abdominal: Normal Bowel Sounds, Soft, Non-Tender Extremities: Pedal Edema, Other (Left leg is externally rotated she is got her knee in a flexed position so is hard to assess length discrepancy compared to the right. Left elbow shows significant skin tear this may require sutures will reevaluate after the patient gets back from radiology) Neurological: Alert, Oriented, CN II-XII Intact Psychiatric: Normal Affect, Normal Mood Skin Exam: Warm, Dry, Intact Lymphatic: No Adenopathy Course - Re-Assessments/Exams Free Text/Narrative Re-Assessment/Exam: 01/03/21 19:06 Awaiting images.. At this time is change of shift further evaluation care and disposition per Annette Sofia NP. 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) Qualified Code(s): N17.2 - Acute kidney failure with medullary necrosis Fall Qualifiers: Encounter type: subsequent encounter Qualified Code(s): W19.XXXD - Unspecified fall, subsequent encounter Closed left hip fracture Qualifiers: Encounter type: initial encounter Qualified Code(s): S72.002A - Fracture of unspecified part of neck of left femur, initial encounter for closed fracture - Discharge Information Sepsis Event Note (ED) - Evaluation Sepsis Screening Result: No Definite Risk <Annette Sofia - Last Filed: 01/05/21 19:27> ED HPI GENERAL MEDICAL PROBLEM - General Source of Information: Reports: Patient, Long-Term Records, RN Notes Reviewed History Limitations: Reports: No Limitations #1 Interpretation EKG Date: 01/03/21 Time: 21:48 Rhythm: NSR Rate (Beats/Min): 81 Dwight: Normal P-Wave: Present QRS: Normal ST-T: Normal QT: Normal ME/PQ Interval: first degree AVB Course - Vital Signs Last Recorded V/S: Last Vital Signs Temp 98.2 F 01/05/21 15:54 Pulse 72 01/05/21 16:02 Resp 16 01/05/21 15:54 BP 104/84 01/05/21 15:54 Pulse Ox 92 L 01/05/21 16:02 - Orders/Labs/Meds Orders: Active Orders 24 hr Category Date Time Status CBC WITH AUTO DIFF [HEME] DAILY Lab 01/06/21 05:00 Ordered CBC WITH AUTO DIFF [HEME] DAILY Lab 01/07/21 05:00 Ordered CBC WITH AUTO DIFF [HEME] DAILY Lab 01/08/21 05:00 Ordered COMPREHENSIVE METABOLIC PN,CMP [CHEM] DAILY Lab 01/06/21 05:00 Ordered COMPREHENSIVE METABOLIC PN,CMP [CHEM] DAILY Lab 01/07/21 05:00 Ordered COMPREHENSIVE METABOLIC PN,CMP [CHEM] DAILY Lab 01/08/21 05:00 Ordered Medication Orders Albuterol/Ipratropium (Duoneb 3.0-0.5 Mg/3 Ml) 3 ml NEB Q4H PRN PRN Reason: Shortness Of Breath/wheezing Calcium Carbonate/Glycine (Tums) 500 mg PO Q4H PRN PRN Reason: Heartburn Cyclobenzaprine HCl (Flexeril) 10 mg PO TID PRN PRN Reason: muscle spasms Last Admin: 01/04/21 12:36 Dose: 10 mg Documented by: PROEAMA Docusate Sodium (Colace) 100 mg PO BID PRN PRN Reason: Constipation Famotidine (Pepcid) 20 mg PO Q48H KANNAN Gabapentin (Neurontin) 600 mg PO BID [facility] Last Admin: 01/05/21 08:58 Dose: 600 mg Documented by: Admin: 01/04/21 20:49 Dose: 600 mg Documented by: MEDARDO Heparin Sodium (Porcine) (Heparin Sodium) 5,000 units SUBCUT Q8H [facility] Stop: 01/05/21 23:00 Last Admin: 01/05/21 14:20 Dose: 5,000 units Documented by: Admin: 01/05/21 06:33 Dose: 5,000 units Documented by: Admin: 01/04/21 22:29 Dose: 5,000 units Documented by: Admin: 01/04/21 14:17 Dose: 5,000 units Documented by: Admin: 01/04/21 06:45 Dose: 5,000 units Documented by: Admin: 01/04/21 01:08 Dose: 5,000 units Documented by: GAYLE Hydralazine HCl (Apresoline) 10 mg IVPUSH Q4H PRN PRN Reason: Hypertension Hydromorphone HCl (Dilaudid) 0.5 mg IVPUSH Q4H PRN PRN Reason: Pain (severe 7-10) Last Admin: 01/05/21 09:54 Dose: 0.5 mg Documented by: Admin: 01/04/21 05:13 Dose: 0.5 mg Documented by: Admin: 01/04/21 01:09 Dose: 0.5 mg Documented by: GAYLE Promethazine HCl 12.5 mg/ (Sodium Chloride) 50.5 mls @ 100 mls/hr IV Q6H PRN PRN Reason: Nausea/Vomiting Lactated Ringer's (Ringers, Lactated) 1,000 mls @ 75 mls/hr IV ASDIRECTED [facility] Last Admin: 01/05/21 18:26 Dose: 75 mls/hr Documented by: LEONIDES Insulin Glargine (Lantus) 15 unit SUBCUT DAILY [facility] Last Admin: 01/05/21 08:58 Dose: 15 units Documented by: Admin: 01/04/21 09:57 Dose: 15 units Documented by: KEVEN Insulin Human Lispro (Humalog) 0 unit SUBCUT QIDACANDBED [facility]; Protocol Last Admin: 01/05/21 18:16 Dose: Not Given Documented by: Admin: 01/05/21 12:06 Dose: 4 units Documented by: Admin: 01/05/21 08:58 Dose: 2 units Documented by: Admin: 01/04/21 22:30 Dose: 6 units Documented by: Admin: 01/04/21 17:16 Dose: 4 units Documented by: Admin: 01/04/21 12:36 Dose: 6 units Documented by: Admin: 01/04/21 08:11 Dose: 6 units Documented by: KEVEN Metoprolol Succinate (Toprol Xl) 50 mg PO DAILY KANNAN Last Admin: 01/05/21 08:57 Dose: 50 mg Documented by: Admin: 01/04/21 08:11 Dose: 50 mg Documented by: KEVEN Oxycodone HCl (Oxycodone) 5 mg PO Q6H PRN PRN Reason: Pain (moderate 4-6) Last Admin: 01/05/21 08:56 Dose: 5 mg Documented by: Admin: 01/04/21 20:48 Dose: 5 mg Documented by: Admin: 01/04/21 12:35 Dose: 5 mg Documented by: KEVEN Labs: Laboratory Tests 01/03/21 01/03/21 01/03/21 Range/Units 17:58 17:58 17:58 WBC 16.81 H (3.98-10.04) K/mm3 RBC 4.40 (3.98-5.22) M/mm3 Hgb 13.6 D (11.2-15.7) gm/dl Hct 42.0 (34.1-44.9) % MCV 95.5 H (79.4-94.8) fl MCH 30.9 (25.6-32.2) pg MCHC 32.4 (32.2-35.5) g/dl RDW Std Deviation 53.0 H (36.4-46.3) fL Plt Count 232 (182-369) K/mm3 MPV 10.0 (9.4-12.3) fl Neut % (Auto) 82.2 H (34.0-71.1) % Lymph % (Auto) 11.5 L (19.3-51.7) % [place] % (Auto) 5.1 (4.7-12.5) % Eos % (Auto) 0.7 (0.7-5.8) Baso % (Auto) 0.2 (0.1-1.2) % Neut # (Auto) 13.83 H (1.56-6.13) K/mm3 Lymph # (Auto) 1.93 (1.18-3.74) K/mm3 [place] # (Auto) 0.86 H (0.24-0.36) K/mm3 Eos # (Auto) 0.11 (0.04-0.36) K/mm3 Baso # (Auto) 0.03 (0.01-0.08) K/mm3 Manual Slide Review Abnormal smear PT 10.3 (9.7-12.0) SECONDS INR 0.96 APTT 23.1 (21.7-31.4) SECONDS Sodium 143 (136-145) mEq/L Potassium 4.7 (3.5-5.1) mEq/L Chloride 105 (98-107) mEq/L Carbon Dioxide 28 (21-32) mEq/L Anion Gap 14.7 (5-15) BUN 25 H (7-18) mg/dL Creatinine 2.1 H (0.55-1.02) mg/dL Est Cr Clr Drug Dosing 13.04 mL/min Estimated GFR (MDRD) 22 (>60) mL/min BUN/Creatinine Ratio 11.9 L (14-18) Glucose 91 (83-115) mg/dL POC Glucose (83-110) mg/dL Calcium 9.5 (8.5-10.1) mg/dL Magnesium (1.8-2.4) mg/dl Total Bilirubin 0.5 (0.2-1.0) mg/dL AST 38 H (15-37) U/L ALT 32 (14-59) U/L Alkaline Phosphatase 77 (46-116) U/L Troponin I (0.00-0.056) ng/mL NT-Pro-B Natriuret Pep (0-450) pg/mL Total Protein 7.1 (6.4-8.2) g/dl Albumin 3.6 (3.4-5.0) g/dl Globulin 3.5 gm/dL Albumin/Globulin Ratio 1.0 (1-2) Urine Color (Yellow) Urine Appearance (Clear) Urine pH (5.0-8.0) Ur Specific [place] (1.005-1.030) Urine Protein (Negative) Urine Glucose (UA) (Negative) Urine Ketones (Negative) Urine Occult Blood (Negative) Urine Nitrite (Negative) Urine Bilirubin (Negative) Urine Urobilinogen (0.2-1.0) Ur Leukocyte Esterase (Negative) U Hyaline Cast (Auto) (0-5) /lpf Urine RBC (0-5) /hpf Urine WBC (0-5) /hpf Ur Squamous Epith Cells (0-5) /hpf Urine Bacteria (FEW) /hpf Urine Mucus (FEW) /hpf SARS-CoV-2 RNA (HAYDE) (NEGATIVE) 01/03/21 01/03/21 01/03/21 Range/Units 17:58 17:58 18:55 WBC (3.98-10.04) K/mm3 RBC (3.98-5.22) M/mm3 Hgb (11.2-15.7) gm/dl Hct (34.1-44.9) % MCV (79.4-94.8) fl MCH (25.6-32.2) pg MCHC (32.2-35.5) g/dl RDW Std Deviation (36.4-46.3) fL Plt Count (182-369) K/mm3 MPV (9.4-12.3) fl Neut % (Auto) (34.0-71.1) % Lymph % (Auto) (19.3-51.7) % [place] % (Auto) (4.7-12.5) % Eos % (Auto) (0.7-5.8) Baso % (Auto) (0.1-1.2) % Neut # (Auto) (1.56-6.13) K/mm3 Lymph # (Auto) (1.18-3.74) K/mm3 [place] # (Auto) (0.24-0.36) K/mm3 Eos # (Auto) (0.04-0.36) K/mm3 Baso # (Auto) (0.01-0.08) K/mm3 Manual Slide Review PT (9.7-12.0) SECONDS INR APTT (21.7-31.4) SECONDS Sodium (136-145) mEq/L Potassium (3.5-5.1) mEq/L Chloride (98-107) mEq/L Carbon Dioxide (21-32) mEq/L Anion Gap (5-15) BUN (7-18) mg/dL Creatinine (0.55-1.02) mg/dL Est Cr Clr Drug Dosing mL/min Estimated GFR (MDRD) (>60) mL/min BUN/Creatinine Ratio (14-18) Glucose (83-115) mg/dL POC Glucose (83-110) mg/dL Calcium (8.5-10.1) mg/dL Magnesium 2.4 (1.8-2.4) mg/dl Total Bilirubin (0.2-1.0) mg/dL AST (15-37) U/L ALT (14-59) U/L Alkaline Phosphatase (46-116) U/L Troponin I < 0.017 (0.00-0.056) ng/mL NT-Pro-B Natriuret Pep 136 (0-450) pg/mL Total Protein (6.4-8.2) g/dl Albumin (3.4-5.0) g/dl Globulin gm/dL Albumin/Globulin Ratio (1-2) Urine Color (Yellow) Urine Appearance (Clear) Urine pH (5.0-8.0) Ur Specific [place] (1.005-1.030) Urine Protein (Negative) Urine Glucose (UA) (Negative) Urine Ketones (Negative) Urine Occult Blood (Negative) Urine Nitrite (Negative) Urine Bilirubin (Negative) Urine Urobilinogen (0.2-1.0) Ur Leukocyte Esterase (Negative) U Hyaline Cast (Auto) (0-5) /lpf Urine RBC (0-5) /hpf Urine WBC (0-5) /hpf Ur Squamous Epith Cells (0-5) /hpf Urine Bacteria (FEW) /hpf Urine Mucus (FEW) /hpf SARS-CoV-2 RNA (HAYDE) Negative (NEGATIVE) 01/03/21 01/03/21 Range/Units 19:55 21:59 WBC (3.98-10.04) K/mm3 RBC (3.98-5.22) M/mm3 Hgb (11.2-15.7) gm/dl Hct (34.1-44.9) % MCV (79.4-94.8) fl MCH (25.6-32.2) pg MCHC (32.2-35.5) g/dl RDW Std Deviation (36.4-46.3) fL Plt Count (182-369) K/mm3 MPV (9.4-12.3) fl Neut % (Auto) (34.0-71.1) % Lymph % (Auto) (19.3-51.7) % [place] % (Auto) (4.7-12.5) % Eos % (Auto) (0.7-5.8) Baso % (Auto) (0.1-1.2) % Neut # (Auto) (1.56-6.13) K/mm3 Lymph # (Auto) (1.18-3.74) K/mm3 [place] # (Auto) (0.24-0.36) K/mm3 Eos # (Auto) (0.04-0.36) K/mm3 Baso # (Auto) (0.01-0.08) K/mm3 Manual Slide Review PT (9.7-12.0) SECONDS INR APTT (21.7-31.4) SECONDS Sodium (136-145) mEq/L Potassium (3.5-5.1) mEq/L Chloride (98-107) mEq/L Carbon Dioxide (21-32) mEq/L Anion Gap (5-15) BUN (7-18) mg/dL Creatinine (0.55-1.02) mg/dL Est Cr Clr Drug Dosing mL/min Estimated GFR (MDRD) (>60) mL/min BUN/Creatinine Ratio (14-18) Glucose (83-115) mg/dL POC Glucose 171 H (83-110) mg/dL Calcium (8.5-10.1) mg/dL Magnesium (1.8-2.4) mg/dl Total Bilirubin (0.2-1.0) mg/dL AST (15-37) U/L ALT (14-59) U/L Alkaline Phosphatase (46-116) U/L Troponin I (0.00-0.056) ng/mL NT-Pro-B Natriuret Pep (0-450) pg/mL Total Protein (6.4-8.2) g/dl Albumin (3.4-5.0) g/dl Globulin gm/dL Albumin/Globulin Ratio (1-2) Urine Color Light yellow (Yellow) Urine Appearance Clear (Clear) Urine pH 6.0 (5.0-8.0) Ur Specific [place] 1.020 (1.005-1.030) Urine Protein Negative (Negative) Urine Glucose (UA) Negative (Negative) Urine Ketones Negative (Negative) Urine Occult Blood Negative (Negative) Urine Nitrite Negative (Negative) Urine Bilirubin Negative (Negative) Urine Urobilinogen 0.2 (0.2-1.0) Ur Leukocyte Esterase Trace H (Negative) U Hyaline Cast (Auto) 5-10 H (0-5) /lpf Urine RBC 0-5 (0-5) /hpf Urine WBC 0-5 (0-5) /hpf Ur Squamous Epith Cells 0-5 (0-5) /hpf Urine Bacteria Many H (FEW) /hpf Urine Mucus Not seen (FEW) /hpf SARS-CoV-2 RNA (HAYDE) (NEGATIVE) Meds: Medications Generic Name Dose Route Start Last Admin Trade Name Freq PRN Reason Stop Dose Admin Albuterol/Ipratropium 3 ml 01/03/21 22:06 Duoneb 3.0-0.5 Mg/3 Ml NEB Q4H PRN Shortness Of Breath/wheezing Calcium Carbonate/Glycine 500 mg 01/04/21 09:48 Tums PO Q4H PRN Heartburn Cyclobenzaprine HCl 10 mg 01/04/21 10:43 01/04/21 12:36 Flexeril PO 10 mg TID PRN Administration muscle spasms Docusate Sodium 100 mg 01/03/21 22:06 Colace PO BID PRN Constipation Famotidine 20 mg 01/06/21 09:00 Pepcid PO Q48H KANNAN Gabapentin 600 mg 01/04/21 21:00 01/05/21 08:58 Neurontin PO 600 mg BID KANNAN Administration Heparin Sodium (Porcine) 5,000 units 01/03/21 22:15 01/05/21 14:20 Heparin Sodium SUBCUT 01/05/21 23:00 5,000 units Q8H KANNAN Administration Hydralazine HCl 10 mg 01/03/21 22:19 Apresoline IVPUSH Q4H PRN Hypertension Hydromorphone HCl 0.5 mg 01/03/21 22:06 01/05/21 09:54 Dilaudid IVPUSH 0.5 mg Q4H PRN Administration Pain (severe 7-10) Promethazine HCl 12.5 mg/ 50.5 mls @ 100 mls/hr 01/03/21 22:06 Sodium Chloride IV Q6H PRN Nausea/Vomiting Lactated Ringer's 1,000 mls @ 75 mls/hr 01/05/21 18:30 01/05/21 18:26 Ringers, Lactated IV 75 mls/hr ASDIRECTED KANNAN Administration Insulin Glargine 15 unit 01/04/21 09:00 01/05/21 08:58 Lantus SUBCUT 15 units DAILY KANNAN Administration Insulin Human Lispro 0 unit 01/04/21 07:00 01/05/21 18:16 Humalog SUBCUT Not Given QIDACANDBED [facility] Protocol Metoprolol Succinate 50 mg 01/04/21 09:00 01/05/21 08:57 Toprol Xl PO 50 mg DAILY KANNAN Administration Oxycodone HCl 5 mg 01/03/21 22:06 01/05/21 08:56 Oxycodone PO 5 mg Q6H PRN Administration Pain (moderate 4-6) Discontinued Medications Generic Name Dose Route Start Last Admin Trade Name Freq PRN Reason Stop Dose Admin Acetaminophen 650 mg 01/03/21 22:06 01/04/21 12:34 Tylenol PO 650 mg Q6H PRN Administration Pain (Mild 1-3)/fever Calcium Carbonate/Glycine 400 mg 01/03/21 22:13 Tums PO Q4H PRN Heartburn Famotidine 20 mg 01/04/21 09:00 01/04/21 09:57 Pepcid PO 20 mg DAILY KANNAN Administration Furosemide 40 mg 01/03/21 21:41 01/03/21 22:00 Lasix IVPUSH 01/03/21 21:42 40 mg NOW ONE Administration Furosemide 20 mg 01/04/21 11:00 01/04/21 13:04 Lasix PO Not Given DAILY KANANN Furosemide 20 mg 01/04/21 18:00 01/04/21 18:47 Lasix IVPUSH 01/04/21 18:01 20 mg ONETIME ONE Administration Gabapentin 600 mg 01/04/21 09:00 01/04/21 08:10 Neurontin PO 600 mg BID KANNAN Administration Hydromorphone HCl 0.25 mg 01/03/21 20:01 01/03/21 20:10 Dilaudid IVPUSH 01/03/21 20:02 0.25 mg ONETIME ONE Administration Hydromorphone HCl 0.25 mg 01/03/21 22:21 01/03/21 23:17 Dilaudid IVPUSH 01/03/21 22:22 0.25 mg ONETIME ONE Administration Sodium Chloride 1,000 mls @ 65 mls/hr 01/03/21 22:15 Normal Saline IV ASDIRECTED [facility] Lactated Ringer's 1,000 mls @ 50 mls/hr 01/04/21 13:30 01/04/21 14:18 Ringers, Lactated IV 50 mls/hr ASDIRECTED KANNAN Administration Lactated Ringer's 1,000 mls @ 65 mls/hr 01/04/21 18:00 01/05/21 06:46 Ringers, Lactated IV 65 mls/hr ASDIRECTED KANNAN Administration Lactated Ringer's 1,000 mls @ 100 mls/hr 01/05/21 09:30 01/05/21 09:44 Ringers, Lactated IV 01/05/21 19:29 100 mls/hr ASDIRECTED KANNAN Administration Lidocaine HCl 10 ml 01/03/21 18:57 01/04/21 00:57 Xylocaine 1% INJECT 01/03/21 18:58 Not Given ONETIME ONE Non-Formulary Medication 15 unit 01/04/21 09:00 Insulin Degludec [Tresiba] SQ DAILY KANNAN Ondansetron HCl 4 mg 01/03/21 18:47 01/03/21 18:51 Zofran IVPUSH 01/03/21 18:48 4 mg ONETIME ONE Administration Ondansetron HCl Confirm 01/03/21 19:50 01/03/21 20:11 Zofran Administered 01/03/21 19:51 Not Given Dose 4 mg .ROUTE .STK-MED ONE Ondansetron HCl 4 mg 01/03/21 20:06 01/03/21 20:11 Zofran IVPUSH 01/03/21 20:07 4 mg ONETIME ONE Administration Sodium Polystyrene Sulfonate 15 gm 01/04/21 08:49 01/04/21 09:57 Kayexalate PO 01/04/21 08:50 15 gm ONETIME ONE Administration Spironolactone 50 mg 01/04/21 09:00 01/04/21 08:10 Aldactone PO 50 mg DAILY KANNAN Administration Tamsulosin HCl 0.4 mg 01/04/21 17:30 01/04/21 17:44 Flomax PO Not Given DAILY KANNAN - Re-Assessments/Exams Free Text/Narrative Re-Assessment/Exam: 01/03/212009 Care assumed from Dr. Carreno at end of shift. Head CT shows no acute abnormalities. X-ray of the left hip is suspicious for fracture. I have ordered a CT scan of the left hip to be completed. Elbow x-ray shows no evidence of acute fracture. On evaluation, patient does have a 4 cm skin tear to the left elbow. Unfortunately there is a section of skin missing, therefore suturing is not a possibility. I have applied Steri-Strips to the wound and area was covered with gauze. Patient has been having some intermittent nausea with a small amount of vomiting. I have ordered Zofran 4 mg IV as well as Dilaudid 0.25 mg IV. 01/03/212144 CT scan reviewed by myself and Dr. Garcia. Shows comminuted fracture of the lef t hip involving the head and the neck. Official radiologist read is pending. Chest x-ray also reviewed by myself and Dr. Garcia. It does show signs of some pulmonary vascular congestion. Patient has been requiring 3 L of O2 in the ER while she normally wears 2 L of O2 at home. I have ordered 40 mg of IV Lasix to be given now. Case was discussed with Dr. Huertas, orthopedist. He recommended admission by the hospitalist for medical management and he will plan to take her to surgery for repair on morning. Case discussed with hospitalist, Dr. Rooney. He has accepted the patient for admission. 01/03/21 22:18 Radiologist read of the CT of the left hip shows acute complex proximal left femoral fracture. Predominant fracture line appears to be predominantly basocervical oblique however a fracture line extends superolateral anteriorly transcervically. Fracture lines involving the greater trochanter as well. There is some angulation and overriding of the fracture fragments. Departure - Departure Time of Disposition: 21:45 Condition: Good
[2021-01-03] MEDS ORDERED: Ondansetron 4 MG/2 ML SDV IVPUSH ONE ×2 (18:47→20:06)
--- NOTE | 2021-01-03 18:56 | CT ---
Head CT Technique: Multiple axial sections through the brain were obtained. Intravenous contrast was not utilized. Reconstructed coronal and sagittal images obtained. Comparison: No prior intracranial imaging is available. Findings: Ventricles along with basal cisterns and sulci over the convexities are mildly enlarged. Diminished density is noted within the periventricular white matter which is felt to represent small vessel ischemic demyelination change. No other abnormal parenchymal densities are seen within the brain parenchyma. No midline shift or mass-effect is appreciated. Atherosclerotic calcification is seen within the cerebral arteries within the carotid siphon and within the basilar artery. Bone window settings were reviewed which show air-fluid level within the right maxillary sinus. No mastoid sinus findings are seen. No acute calvarial finding is appreciated. Impression: 1. Air-fluid level within the right maxillary sinus. Please rule out any symptoms of acute sinusitis. 2. Senescent change as noted above. 3. No acute intracranial abnormality is appreciated. Diagnostic code #3
[2021-01-03] MEDS ORDERED: Lidocaine 1% 10 ML MDV INJECT ONE (18:57)
[2021-01-03] MEDS ORDERED: Ondansetron 4 MG/2 ML SDV ONE (19:50)
[2021-01-03] MEDS ORDERED: HYDROmorphone 0.5 MG/0.5 ML Syringe IVPUSH ONE ×2 (20:01→22:21)
[2021-01-03] MEDS ORDERED: Furosemide 40 MG/4 ML VIAL IVPUSH ONE (21:41)
[2021-01-03] MEDS ORDERED: Acetaminophen 325 MG Tab PO PRN (22:06)
[2021-01-03] MEDS ORDERED: Albuterol/Ipratropium 3.0-0.5 MG/3 ML Neb Soln NEB PRN (22:06)
[2021-01-03] MEDS ORDERED: Docusate Sodium 100 MG Cap PO PRN (22:06)
[2021-01-03] MEDS ORDERED: Promethazine 12.5 MG in Sodium Chloride 0.9% 50 ML IV PRN (22:06)
[2021-01-03] MEDS ORDERED: Calcium Carbonate 500 MG Tab.Chew PO PRN (22:13)
[2021-01-03] MEDS ORDERED: Sodium Chloride 0.9% 1,000 ML IV SCH (22:15)
[2021-01-03] MEDS ORDERED: hydrALAZINE 20 MG/ML SDV IVPUSH PRN (22:19)
[2021-01-04] MEDS: Heparin Sodium 5,000 Units/ML Vial SUBCUT SCH ×4 (01:08→22:29)
[2021-01-04] MEDS: HYDROmorphone 0.5 MG/0.5 ML Syringe IVPUSH PRN ×2 (01:09→05:13)
--- NOTE | 2021-01-04 07:31 | PCM.HP.2 ---
H&P History of Present Illness - General Date of Service: 01/04/21 Admit Problem/Dx: Admission Diagnosis/Problem Admission Diagnosis/Problem Hip fracture requiring operative repair Source of Information: Patient, Old Records, Provider, RN, RN Notes Reviewed History Limitations: Reports: No Limitations - History of Present Illness Initial Comments - Free Text/Narative: This is an 89 yo female who presents to ED via [facility] on 01/03/2021 after a fall resulting in a left elbow and hip injury. Patient states that she thinks her hip gave out or possibly her blood sugar dropped after she got up from a chair to walk to the bathroom and she fell. This occurred at the [facility] resides. She reports she did hit her head and she is on Plavix. Denies any loss of consciousness. She does have a large skin tear to her left elbow. Left leg is noted to be externally rotated and shortened. In the ED temp is 97.4. Pulse is 58. Respirations 16. Blood pressure 127/55. Pulse ox 78%. Twelve-lead EKG is obtained showing a sinus rhythm at 81 bpm with a first-degree AV block. No signs of ischemia. Labs are changed showing WBC does elevated at 16.81. Hemoglobin is 13.6. Platelets are good at 232,000. Neutrophils are elevated at 13.83. INR 0.96. Sodium 143. Potassium 4.7. Chloride 105. Carbon dioxide 28. Anion gap 14.7. BUN is elevated 25. Creatinine elevated 2.1. GFR is 22. Glucose 91. Calcium 9.5. Bilirubin 0.5. AST is 38, ALT 32, alkaline phosphatase 77. Protein 7.1. Albumin 3.6. Magnesium is 2.4. Troponin is less than 0.017. proBNP is 136. SARS Covid 2 RNA is negative. UA shows trace leukocyte esterase, 5-10 hyaline casts, many bacteria. Head CT is obtained showing air-fluid levels in the right maxillary sinus, please rule out any symptoms of acute sinusitis. There is also senescent change but nothing acute noted. Elbow x-ray is obtained and shows no acute fracture. Patient does have a 4 cm skin tear to the left elbow which is covered using Steri-Strips and gauze. She is given Zofran for nausea and Dilaudid for pain. CT of the left hip is obtained showing acute complex proximal left femo ral fracture. Predominant fracture line appears to be predominantly basocervical oblique however a fracture line extends superior laterally anteriorly transcervically. Fracture lines involving the greater trochanter as well. There is some angulation and overriding of the fracture fragments. Mally ent is noted to require 3 L of oxygen in the ER and it is reported she normally wears 2 L at home. She is given 40 mg of IV push Lasix. Case discussed with Dr. Huertas, orthopedic surgeon, who recommends patient be admitted for surgical repair on , due to her taking Plavix. She carries a history of heart failure, hypertension, A. fib, anemia, chronic constipation, dysphagia, chronic renal sufficiency, urinary retention, chronic back pain, TIA, cerebral infarct, neuralgia, depression, vascular dementia, type II DM. She was never a smoker. Her PCP is Dr. Winchester. She is a DNR/DNI. She subsequently admitted to the medical floor inpatient for management of her hip fracture. Left Hip Pain Score (Numeric/FACES): 6 - Related Data Allergies/Adverse Reactions: Allergies Allergy/AdvReac Type Severity Reaction Status Date / Time levofloxacin [From Levaquin] Allergy Itching Verified 01/03/21 19:06 Home Medications: Home Meds Clopidogrel [Plavix] 75 mg PO DAILY 10/20/15 [History] Gabapentin [Neurontin] 600 mg PO BID 10/20/15 [History] Insulin Aspart [Novolog Flexpen] 13 unit SQ TID 10/20/15 [History] Acetaminophen 500 mg PO BEDTIME 07/12/16 [History] Calcium Carbonate [Tums] 400 mg PO Q4H PRN 07/12/16 [History] Vitamin E 400 unit PO DAILY 07/12/16 [History] Furosemide [Lasix] 20 mg PO ASDIRECTED PRN 04/29/19 [History] Furosemide [Lasix] 20 mg PO DAILY 04/29/19 [History] Insulin Degludec [Tresiba] 20 unit SQ BEDTIME 04/29/19 [History] MO/Pet,Wh/Phenylephrine/Shk Lv [Preparation H Oint] 1 appful RECTAL ASDIRECTED PRN 04/29/19 [History] Metoprolol Succinate 50 mg PO DAILY 04/29/19 [History] polyethylene glycoL 3350 [MiraLAX] 17 gm PO ASDIRECTED PRN 04/29/19 [History] Albuterol/Ipratropium [DuoNeb 3.0-0.5 MG/3 ML] 3 ml NEB QIDRT #120 neb 05/06/19 [Rx] Spironolactone [Aldactone] 50 mg PO DAILY #30 tablet 05/06/19 [Rx] Insulin Aspart [NovoLOG] 1 dose SUBCUT TID 08/31/20 [History] Past Medical History HEENT History: Reports: Impaired Vision Other HEENT History: dysphagia Cardiovascular History: Reports: Afib, Arrhythmia, Heart Failure, Hypertension Other Cardiovascular History: Afib, anemia Respiratory History: Reports: Pneumonia, Recurrent, Other (See Below) Other Respiratory History: hypoxemia requiring home O2 Gastrointestinal History: Reports: Chronic Constipation Other Gastrointestinal History: dysphagia Genitourinary History: Reports: Chronic Renal Insuffiency, Retention, Urinary [employer] History: Reports: Musculoskeletal History: Reports: Back Pain, Chronic Other Musculoskeletal History: muscle weakness Neurological History: Reports: TIA, Other (See Below) Other Neuro History: cerebral infarct; neuralgia Psychiatric History: Reports: Dementia, Depression Other Psychiatric History: vascular dementia Endocrine/Metabolic History: Reports: Diabetes, Type II Hematologic History: Reports: Anemia Oncologic (Cancer) History: Reports: Other (See Below) Other Oncologic History: unknown skin cancer Dermatologic History: Reports: Other (See Below) Other Dermatologic History: previous supspected skin cancer - Infectious Disease History Infectious Disease History: Reports: Chicken Pox, Influenza, Measles, Mumps - Past Surgical History HEENT Surgical History: Reports: None Cardiovascular Surgical History: Reports: None GI Surgical History: Reports: Cholecystectomy Female Surgical History: Reports: None Oncologic Surgical History: Reports: None Social & Family History - Family History Family Medical History: No Pertinent Family History - Tobacco Use Tobacco Use Status *Q: Unknown Ever Used Tobacco Second Hand Smoke Exposure: No - Caffeine Use Caffeine Use: Reports: Coffee - Recreational Drug Use Recreational Drug Use: No H&P Review of Systems - Review of Systems: Review Of Systems: See Below General: Reports: No Symptoms. Denies: Fever, Chills, Malaise, Weakness, Fatigue HEENT: Reports: No Symptoms. Denies: Headaches, Sore Throat Pulmonary: Reports: No Symptoms. Denies: Shortness of Breath, Wheezing, Pleuritic Chest Pain, Cough, Sputum Cardiovascular: Reports: No Symptoms. Denies: Chest Pain, Palpitations, Dyspnea on Exertion, Edema Gastrointestinal: Reports: No Symptoms. Denies: Abdominal Pain, Constipation, Diarrhea, Nausea, Vomiting Genitourinary: Reports: No Symptoms. Denies: Pain Musculoskeletal: Reports: Shoulder Pain (Left), Arm Pain (Left elbow), Leg Pain (Left hip) Skin: Reports: No Symptoms. Denies: Cyanosis Psychiatric: Reports: No Symptoms. Denies: Confusion Neurological: Reports: Pre-Existing Deficit (Difficulty with ambulation prior ), Difficulty Walking, Weakness, Gait Disturbance. Denies: Confusion, Numbness, Tingling Hematologic/Lymphatic: Reports: No Symptoms Immunologic: Reports: No Symptoms Exam - Exam Exam: See Below - Vital Signs Vital Signs: Last Vital Signs Temp 98.6 F 01/04/21 03:41 Pulse 85 01/04/21 05:10 Resp 16 01/04/21 03:41 BP 115/51 L 01/04/21 05:13 Pulse Ox 94 L 01/04/21 05:10 Weight: 154 lb 12.8 oz - Exam Quality Assessment: Supplemental Oxygen, Urinary Catheter, DVT Prophylaxis General: Alert, Oriented, Cooperative. No: Mild Distress HEENT: Conjunctiva Clear, EACs Clear, EOMI, Mucosa Moist & [place], Posterior Pharynx Clear Neck: Supple, Trachea Midline Lungs: Clear to Auscultation, Normal Respiratory Effort Cardiovascular: Regular Rate, Regular Rhythm GI/Abdominal Exam: Normal Bowel Sounds, Soft, Non-Tender, No Distention (Female) Exam: Deferred Rectal (Female) Exam: Deferred Back Exam: Normal Inspection, Full Range of Motion Extremities: Normal Capillary Refill, Pedal Edema (1+ ), Leg Pain (Left), Limited Range of Motion (Left 2/2 pain ) Peripheral Pulses: 2+: Radial (L), Radial (R), Dorsalis Pedis (L), Dorsalis Pedis (R) Skin: Warm, Dry, Intact Neurological: Cranial Nerves Intact (Grossly ) Neuro Extensive - Mental Status: Alert, Oriented x3 - Patient Data Lab Results Last 24 hrs: Laboratory Results - last 24 hr 01/03/21 01/03/21 01/03/21 Range/Units 17:58 17:58 17:58 WBC 16.81 H (3.98-10.04) K/mm3 RBC 4.40 (3.98-5.22) M/mm3 Hgb 13.6 D (11.2-15.7) gm/dl Hct 42.0 (34.1-44.9) % MCV 95.5 H (79.4-94.8) fl MCH 30.9 (25.6-32.2) pg MCHC 32.4 (32.2-35.5) g/dl RDW Std Deviation 53.0 H (36.4-46.3) fL Plt Count 232 (182-369) K/mm3 MPV 10.0 (9.4-12.3) fl Neut % (Auto) 82.2 H (34.0-71.1) % Lymph % (Auto) 11.5 L (19.3-51.7) % Swain % (Auto) 5.1 (4.7-12.5) % Eos % (Auto) 0.7 (0.7-5.8) Baso % (Auto) 0.2 (0.1-1.2) % Neut # (Auto) 13.83 H (1.56-6.13) K/mm3 Lymph # (Auto) 1.93 (1.18-3.74) K/mm3 Swain # (Auto) 0.86 H (0.24-0.36) K/mm3 Eos # (Auto) 0.11 (0.04-0.36) K/mm3 Baso # (Auto) 0.03 (0.01-0.08) K/mm3 Manual Slide Review Abnormal smear PT 10.3 (9.7-12.0) SECONDS INR 0.96 APTT 23.1 (21.7-31.4) SECONDS Sodium 143 (136-145) mEq/L Potassium 4.7 (3.5-5.1) mEq/L Chloride 105 (98-107) mEq/L Carbon Dioxide 28 (21-32) mEq/L Anion Gap 14.7 (5-15) BUN 25 H (7-18) mg/dL Creatinine 2.1 H (0.55-1.02) mg/dL Est Cr Clr Drug Dosing 13.04 mL/min Estimated GFR (MDRD) 22 (>60) mL/min BUN/Creatinine Ratio 11.9 L (14-18) Glucose 91 (83-115) mg/dL POC Glucose (83-110) mg/dL Calcium 9.5 (8.5-10.1) mg/dL Magnesium (1.8-2.4) mg/dl Total Bilirubin 0.5 (0.2-1.0) mg/dL AST 38 H (15-37) U/L ALT 32 (14-59) U/L Alkaline Phosphatase 77 (46-116) U/L Troponin I (0.00-0.056) ng/mL NT-Pro-B Natriuret Pep (0-450) pg/mL Total Protein 7.1 (6.4-8.2) g/dl Albumin 3.6 (3.4-5.0) g/dl Globulin 3.5 gm/dL Albumin/Globulin Ratio 1.0 (1-2) Urine Color (Yellow) Urine Appearance (Clear) Urine pH (5.0-8.0) Ur Specific [place] (1.005-1.030) Urine Protein (Negative) Urine Glucose (UA) (Negative) Urine Ketones (Negative) Urine Occult Blood (Negative) Urine Nitrite (Negative) Urine Bilirubin (Negative) Urine Urobilinogen (0.2-1.0) Ur Leukocyte Esterase (Negative) U Hyaline Cast (Auto) (0-5) /lpf Urine RBC (0-5) /hpf Urine WBC (0-5) /hpf Ur Squamous Epith Cells (0-5) /hpf Urine Bacteria (FEW) /hpf Urine Mucus (FEW) /hpf SARS-CoV-2 RNA (HAYDE) (NEGATIVE) MRSA (PCR) 01/03/21 01/03/21 01/03/21 Range/Units 17:58 17:58 18:55 WBC (3.98-10.04) K/mm3 RBC (3.98-5.22) M/mm3 Hgb (11.2-15.7) gm/dl Hct (34.1-44.9) % MCV (79.4-94.8) fl MCH (25.6-32.2) pg MCHC (32.2-35.5) g/dl RDW Std Deviation (36.4-46.3) fL Plt Count (182-369) K/mm3 MPV (9.4-12.3) fl Neut % (Auto) (34.0-71.1) % Lymph % (Auto) (19.3-51.7) % Swain % (Auto) (4.7-12.5) % Eos % (Auto) (0.7-5.8) Baso % (Auto) (0.1-1.2) % Neut # (Auto) (1.56-6.13) K/mm3 Lymph # (Auto) (1.18-3.74) K/mm3 Swain # (Auto) (0.24-0.36) K/mm3 Eos # (Auto) (0.04-0.36) K/mm3 Baso # (Auto) (0.01-0.08) K/mm3 Manual Slide Review PT (9.7-12.0) SECONDS INR APTT (21.7-31.4) SECONDS Sodium (136-145) mEq/L Potassium (3.5-5.1) mEq/L Chloride (98-107) mEq/L Carbon Dioxide (21-32) mEq/L Anion Gap (5-15) BUN (7-18) mg/dL Creatinine (0.55-1.02) mg/dL Est Cr Clr Drug Dosing mL/min Estimated GFR (MDRD) (>60) mL/min BUN/Creatinine Ratio (14-18) Glucose (83-115) mg/dL POC Glucose (83-110) mg/dL Calcium (8.5-10.1) mg/dL Magnesium 2.4 (1.8-2.4) mg/dl Total Bilirubin (0.2-1.0) mg/dL AST (15-37) U/L ALT (14-59) U/L Alkaline Phosphatase (46-116) U/L Troponin I < 0.017 (0.00-0.056) ng/mL NT-Pro-B Natriuret Pep 136 (0-450) pg/mL Total Protein (6.4-8.2) g/dl Albumin (3.4-5.0) g/dl Globulin gm/dL Albumin/Globulin Ratio (1-2) Urine Color (Yellow) Urine Appearance (Clear) Urine pH (5.0-8.0) Ur Specific [place] (1.005-1.030) Urine Protein (Negative) Urine Glucose (UA) (Negative) Urine Ketones (Negative) Urine Occult Blood (Negative) Urine Nitrite (Negative) Urine Bilirubin (Negative) Urine Urobilinogen (0.2-1.0) Ur Leukocyte Esterase (Negative) U Hyaline Cast (Auto) (0-5) /lpf Urine RBC (0-5) /hpf Urine WBC (0-5) /hpf Ur Squamous Epith Cells (0-5) /hpf Urine Bacteria (FEW) /hpf Urine Mucus (FEW) /hpf SARS-CoV-2 RNA (HAYDE) Negative (NEGATIVE) MRSA (PCR) 01/03/21 01/03/21 01/04/21 Range/Units 19:55 21:59 00:05 WBC (3.98-10.04) K/mm3 RBC (3.98-5.22) M/mm3 Hgb (11.2-15.7) gm/dl Hct (34.1-44.9) % MCV (79.4-94.8) fl MCH (25.6-32.2) pg MCHC (32.2-35.5) g/dl RDW Std Deviation (36.4-46.3) fL Plt Count (182-369) K/mm3 MPV (9.4-12.3) fl Neut % (Auto) (34.0-71.1) % Lymph % (Auto) (19.3-51.7) % Swain % (Auto) (4.7-12.5) % Eos % (Auto) (0.7-5.8) Baso % (Auto) (0.1-1.2) % Neut # (Auto) (1.56-6.13) K/mm3 Lymph # (Auto) (1.18-3.74) K/mm3 [place] # (Auto) (0.24-0.36) K/mm3 Eos # (Auto) (0.04-0.36) K/mm3 Baso # (Auto) (0.01-0.08) K/mm3 Manual Slide Review PT (9.7-12.0) SECONDS INR APTT (21.7-31.4) SECONDS Sodium (136-145) mEq/L Potassium (3.5-5.1) mEq/L Chloride (98-107) mEq/L Carbon Dioxide (21-32) mEq/L Anion Gap (5-15) BUN (7-18) mg/dL Creatinine (0.55-1.02) mg/dL Est Cr Clr Drug Dosing mL/min Estimated GFR (MDRD) (>60) mL/min BUN/Creatinine Ratio (14-18) Glucose (83-115) mg/dL POC Glucose 171 H (83-110) mg/dL Calcium (8.5-10.1) mg/dL Magnesium (1.8-2.4) mg/dl Total Bilirubin (0.2-1.0) mg/dL AST (15-37) U/L ALT (14-59) U/L Alkaline Phosphatase (46-116) U/L Troponin I (0.00-0.056) ng/mL NT-Pro-B Natriuret Pep (0-450) pg/mL Total Protein (6.4-8.2) g/dl Albumin (3.4-5.0) g/dl Globulin gm/dL Albumin/Globulin Ratio (1-2) Urine Color Light yellow (Yellow) Urine Appearance Clear (Clear) Urine pH 6.0 (5.0-8.0) Ur Specific [place] 1.020 (1.005-1.030) Urine Protein Negative (Negative) Urine Glucose (UA) Negative (Negative) Urine Ketones Negative (Negative) Urine Occult Blood Negative (Negative) Urine Nitrite Negative (Negative) Urine Bilirubin Negative (Negative) Urine Urobilinogen 0.2 (0.2-1.0) Ur Leukocyte Esterase Trace H (Negative) U Hyaline Cast (Auto) 5-10 H (0-5) /lpf Urine RBC 0-5 (0-5) /hpf Urine WBC 0-5 (0-5) /hpf Ur Squamous Epith Cells 0-5 (0-5) /hpf Urine Bacteria Many H (FEW) /hpf Urine Mucus Not seen (FEW) /hpf SARS-CoV-2 RNA (HAYDE) (NEGATIVE) MRSA (PCR) Negative Result Diagrams: 01/04/21 06:25 01/04/21 06:25 #1 Interpretation EKG Date: 01/04/21 Time: 08:59 Rhythm: NSR P-Wave: Present QRS: Normal ST-T: Normal QT: Normal Comparison: No Change (from 04/29/19) EKG Interpretation Comments: Ordered due to hypokalemia Sinus rhythm with Q-waves in III and aVF - consider old inferior infarct. Sepsis Event Note - Evaluation Sepsis Screening Result: No Definite Risk - Focused Exam Vital Signs: Vital Signs Temp Pulse Resp BP Pulse Ox 01/04/21 05:13 115/51 L 01/04/21 05:10 85 94 L 01/04/21 03:41 98.6 F 16 89/64 L 01/04/21 00:04 98.1 F 86 20 137/51 L 93 L - Problem List (1) Closed left hip fracture SNOMED Code(s): 698867474 ICD Code: S72.002A - FRACTURE OF UNSP PART OF NECK OF LEFT FEMUR, INIT S tatus: Acute Priority: High Current Visit: Yes Qualifiers: Encounter type: initial encounter Qualified Code(s): S72.002A - Fracture of unspecified part of neck of left femur, initial encounter for closed fracture (2) Anemia SNOMED Code(s): 349155614 ICD Code: D64.9 - ANEMIA, UNSPECIFIED Status: Chronic Priority: Medium Current Visit: No Onset Date: 04/30/19 Problem Details: anemia sec to anticoagulation with xarolto / plavix and asa asa held mild bleeding noted from hemmhroids Qualifiers: Anemia type: due to chronic 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) Qualified Code(s): N18.4 - Chronic kidney disease, stage 4 (severe); D63.1 - Anemia in chronic kidney disease (3) CHF (congestive heart failure), NYHA class II SNOMED Code(s): 420045217, 178579503 ICD Code: I50.9 - HEART FAILURE, UNSPECIFIED Status: Chronic Priority: Medium Current Visit: No Onset Date: 05/01/19 Qualifiers: Congestive heart failure type: unspecified Qualified Code(s): I50.9 - Heart failure, unspecified (4) Fall SNOMED Code(s): 2500864, 189187431 ICD Code: W19.XXXA - UNSPECIFIED FALL, INITIAL ENCOUNTER Status: Acute Priority: High Current Visit: Yes Qualifiers: Encounter type: subsequent encounter Qualified Code(s): W19.XXXD - Unspecified fall, subsequent encounter (5) DM2 (diabetes mellitus, type 2) SNOMED Code(s): 88124872 ICD Code: E11.9 - TYPE 2 DIABETES MELLITUS WITHOUT COMPLICATIONS Status: Chronic Priority: High Current Visit: No Onset Date: 05/02/19 Qualifiers: Diabetes mellitus emt intermediate insulin use: unspecified emt intermediate insulin use status Diabetes mellitus complication status: with unspecified complications (6) Afib SNOMED Code(s): 16260327 ICD Code: I48.91 - UNSPECIFIED ATRIAL FIBRILLATION Status: Chronic Priority: Low Current Visit: No Qualifiers: Atrial fibrillation type: paroxysmal Qualified Code(s): I48.0 - Paroxysmal atrial fibrillation (7) HTN (hypertension) SNOMED Code(s): 68139542 ICD Code: I10 - ESSENTIAL (PRIMARY) HYPERTENSION Status: Chronic Priority: Medium Current Visit: No Qualifiers: Hypertension type: unspecified Qualified Code(s): I10 - Essential (primary) hypertension (8) Chronic constipation SNOMED Code(s): 736280491 ICD Code: K59.09 - OTHER CONSTIPATION Status: Chronic Priority: Low Current Visit: No (9) Urinary retention SNOMED Code(s): 996065942 ICD Code: R33.9 - RETENTION OF URINE, UNSPECIFIED Status: Chronic Priority: Low Current Visit: No (10) Chronic back pain SNOMED Code(s): 324161843 ICD Code: M54.9 - DORSALGIA, UNSPECIFIED; G89.29 - OTHER CHRONIC PAIN Status: Chronic Priority: Low Current Visit: No Qualifiers: Back pain location: back pain in unspecified location Back pain laterality: unspecified Qualified Code(s): M54.9 - Dorsalgia, unspecified; G89.29 - Other chronic pain (11) History of TIA (transient ischemic attack) SNOMED Code(s): 415813483 ICD Code: Z86.73 - PRSNL HX OF TIA (TIA), AND CEREB INFRC W/O RESID DEFICITS Status: Chronic Priority: Low Current Visit: No (12) Depression SNOMED Code(s): 78494912 ICD Code: F32.9 - MAJOR DEPRESSIVE DISORDER, SINGLE EPISODE, UNSPECIFIED Status: Chronic Priority: Low Current Visit: No Qualifiers: Depression Type: other depression Qualified Code(s): F32.89 - Other specified depressive episodes (13) [facility] resident SNOMED Code(s): 122941075 ICD Code: Z59.3 - PROBLEMS RELATED TO LIVING IN RESIDENTIAL INSTITUTION Status: Chronic Priority: Low Current Visit: No (14) Hyperbilirubinemia SNOMED Code(s): 12894154 ICD Code: E80.6 - OTHER DISORDERS OF BILIRUBIN METABOLISM Status: Acute Priority: Medium Current Visit: Yes (15) Elevated AST (SGOT) SNOMED Code(s): 805746990 ICD Code: R74.01 - ELEVATION OF LEVELS OF LIVER TRANSAMINASE LEVELS Status: Acute Priority: Medium Current Visit: Yes (16) Elevated ALT measurement SNOMED Code(s): 523045186 ICD Code: R74.01 - ELEVATION OF LEVELS OF LIVER TRANSAMINASE LEVELS Status: Acute Priority: Medium Current Visit: Yes Problem List Initiated/Reviewed/Updated: Yes Orders Last 24hrs: Active Orders 24 hr Category Date Time Status Patient Status [ADT] Routine ADT 01/03/21 23:29 Active Bedrest Bedside Commode [RC] BID Care 01/03/21 22:06 Active Cardiac Monitoring [RC] CONTINUOUS Care 01/03/21 22:06 Active Blackman Catheter Insertion [Insert Urinary Catheter] [OM. Care 01/03/21 22:00 Ordered PC] Q24H Oxygen Therapy [RC] PRN Care 01/03/21 22:06 Active Pulse Oximetry [RC] CONTINUOUS Care 01/03/21 22:06 Active RT Aerosol Therapy [RC] ASDIRECTED Care 01/03/21 22:10 Active Urinary Catheter Assessment [RC] 04,10,16,22 Care 01/03/21 21:49 Active VTE/DVT Education [RC] DAILY Care 01/03/21 22:06 Active OT Evaluation and Treatment [CONS] Routine Cons 01/03/21 22:10 Active PT Evaluation and Treatment [CONS] Routine Cons 01/03/21 22:10 Active Consistent Carbohydrate Diet [DIET] Diet 01/03/21 Breakfast Active Chest 1V Frontal [CR] Stat Exams 01/03/21 18:04 Taken Elbow Min 3V Lt [CR] Stat Exams 01/03/21 17:38 Taken Hip Min 2V or 3V w Pelvis Lt [CR] Stat Exams 01/03/21 17:38 Taken Hip wo Cont Lt [CT] Stat Exams 01/03/21 19:06 Taken CBC WITH AUTO DIFF [HEME] DAILY Lab 01/04/21 06:25 Received CBC WITH AUTO DIFF [HEME] DAILY Lab 01/05/21 05:00 Ordered CBC WITH AUTO DIFF [HEME] DAILY Lab 01/06/21 05:00 Ordered CBC WITH AUTO DIFF [HEME] DAILY Lab 01/07/21 05:00 Ordered CBC WITH AUTO DIFF [HEME] DAILY Lab 01/08/21 05:00 Ordered COMPREHENSIVE METABOLIC PN,CMP [CHEM] DAILY Lab 01/04/21 06:25 Received COMPREHENSIVE METABOLIC PN,CMP [CHEM] DAILY Lab 01/05/21 05:00 Ordered COMPREHENSIVE METABOLIC PN,CMP [CHEM] DAILY Lab 01/06/21 05:00 Ordered COMPREHENSIVE METABOLIC PN,CMP [CHEM] DAILY Lab 01/07/21 05:00 Ordered COMPREHENSIVE METABOLIC PN,CMP [CHEM] DAILY Lab 01/08/21 05:00 Ordered CULTURE URINE [RM] Stat Lab 01/03/21 19:55 Received PRO B-TYPE NATRIUR PEPT,BNPPRO [CHEM] Routine Lab 01/04/21 06:25 Received Acetaminophen [TylenoL] Med 01/03/21 22:06 Active 650 mg PO Q6H PRN Albuterol/Ipratropium [DuoNeb 3.0-0.5 MG/3 ML] Med 01/03/21 22:06 Active 3 ml NEB Q4H PRN Calcium Carbonate [Tums] Med 01/03/21 22:13 Active 400 mg PO Q4H PRN Docusate Sodium [Colace] Med 01/03/21 22:06 Active 100 mg PO BID PRN Gabapentin [Neurontin] Med 01/04/21 09:00 Active 600 mg PO BID HYDROmorphone [Dilaudid] Med 01/03/21 22:06 Active 0.5 mg IVPUSH Q4H PRN Heparin Sodium Med 01/03/21 22:15 Active 5,000 units SUBCUT Q8H Insulin Degludec [Tresiba] Med 01/04/21 09:00 Active 15 unit SQ DAILY Insulin Lispro [HumaLOG] Med 01/04/21 07:00 Active See Protocol SUBCUT QIDACANDBED Metoprolol Succinate [Toprol XL] Med 01/04/21 09:00 Active 50 mg PO DAILY Promethazine [Phenergan] 12.5 mg Med 01/03/21 22:06 Active Sodium Chloride 0.9% [Normal Saline] 50 ml IV Q6H Spironolactone [Aldactone] Med 01/04/21 09:00 Active 50 mg PO DAILY hydrALAZINE [Apresoline] Med 01/03/21 22:19 Active 10 mg IVPUSH Q4H PRN oxyCODONE Med 01/03/21 22:06 Active 5 mg PO Q6H PRN Code Status [Resuscitation Status] Routine Resus Stat 01/04/21 00:50 Ordered Medication Orders Acetaminophen (Tylenol) 650 mg PO Q6H PRN PRN Reason: Pain (Mild 1-3)/fever Albuterol/Ipratropium (Duoneb 3.0-0.5 Mg/3 Ml) 3 ml NEB Q4H PRN PRN Reason: Shortness Of Breath/wheezing Calcium Carbonate/Glycine (Tums) 400 mg PO Q4H PRN PRN Reason: Heartburn Docusate Sodium (Colace) 100 mg PO BID PRN PRN Reason: Constipation Gabapentin (Neurontin) 600 mg PO BID [facility] Heparin Sodium (Porcine) (Heparin Sodium) 5,000 units SUBCUT Q8H [facility] Last Admin: 01/04/21 06:45 Dose: 5,000 units Documented by: Admin: 01/04/21 01:08 Dose: 5,000 units Documented by: GAYLE Hydralazine HCl (Apresoline) 10 mg IVPUSH Q4H PRN PRN Reason: Hypertension Hydromorphone HCl (Dilaudid) 0.5 mg IVPUSH Q4H PRN PRN Reason: Pain (severe 7-10) Last Admin: 01/04/21 05:13 Dose: 0.5 mg Documented by: Admin: 01/04/21 01:09 Dose: 0.5 mg Documented by: GAYLE Promethazine HCl 12.5 mg/ (Sodium Chloride) 50.5 mls @ 100 mls/hr IV Q6H PRN PRN Reason: Nausea/Vomiting Insulin Human Lispro (Humalog) 0 unit SUBCUT QIDACANDBED [facility]; Protocol Metoprolol Succinate (Toprol Xl) 50 mg PO DAILY [facility] Non-Formulary Medication (Insulin Degludec [Tresiba]) 15 unit SQ DAILY [facility] Oxycodone HCl (Oxycodone) 5 mg PO Q6H PRN PRN Reason: Pain (moderate 4-6) Spironolactone (Aldactone) 50 mg PO DAILY [facility] Assessment/Plan Comment:: Assessment - Day of admission 01/04/21 (admitted late 01/03/21) * 89 Yo female who [facility] resulting in left hip and elbow pain * Unknown why she fell. Hit head. Skin tear on left elbow * Left leg externally rotated and shortened * 12-lead EKG shows NSR at 81 BPM with a first degree AV block. * Head CT shows air-fluid levels in right maxillary sinus and senescent change. Nothing acute * Left hip X-ray suspicious for fracture * Left elbow x-ray shows nothing acute * 4cm skin tear on left elbow with skin missing repaired with steri-strips and gauze * Left Hip CT shows acute complex proximal left femoral fracture * Predominant fracture line appears to be predominantly basocervical oblique however a fracture line extends superolaterally anteriorly transcervically. * Fracture lines involving the greater trochanter as well. * There is some angulation and overriding of the fracture fragments. * CXR shows nothing acute * Dr. Huertas, orthopedic surgeon consulted by ED - plans for surgery on 01/06/21 due to patient being on Plavix\ * Given Dilaudid for pain and Zofran for nausea * Labs: * WBC 16.81 --> 18.22 * hemoglobin 13.6 --> 13.9 * platelet 232 --> 189 * neutrophils 13.83 --> 16.37 * INR 0.96 * sodium 143 --> 140 * potassium 4.7 --> 5.5 * anion gap 14.7 --> 17.5 * BUN 25 --> 29 * creatinine 2.1 --> 2.3 * GFR 20 ---> 20 * glucose 91 --> 267 * magnesium 2.4 * total bilirubin 0.5 --> 1.3 * AST 38 ---> 192 * ALT 32 --> 327 * alkaline phosphatase 77 --> 113 * troponin less than 0.017 * proBNP 136 --> 335 * albumin 3.6 --> 3.6 * UA negative but trace leukocyte esterase, 5-10 hyaline casts, and many bacteria noted * SARS Covid 2 RNA negative * MRSA negative * urine culture pending PLAN: Closed left hip fracture [facility] * Pain medications as ordered * Bedrest * Blackman until post surgical * Flexeril as ordered * PT/OT * CM/SW for discharge planning * Dr. Huertas, orthopedic surgeon consulted in ED * Planning surgery on 01/06/21 (wait due to Plavix) * Hold home Plavix * Heparin/SCDs for VTE * IS * Optimize for surgery * Ice pack as needed Hyperkalemia * Kayexalate 15 gm now * 12-lead ekg - shows no acute changes * Monitor labs Hyperbilirubinemia Elevated AST (SGOT) Elevated ALT measurement * Avoid tylenol * Re-check labs and monitor * IV fluids as ordered DM2 (diabetes mellitus, type 2) * Lantus (sub for Tresiba) at home dosing * Medium scale humalog * QID AC and bedtime blood glucose checks * Consistent carbohydrate diet Anemia CHF (congestive heart failure), NYHA class II Afib HTN (hypertension) Chronic constipation Urinary retention Chronic back pain History of TIA (transient ischemic attack) Depression * Review/reconcile home medications * Telemetry * PRN stool softeners Code status: DNR/DNI PCP: Dr. Winchester DVT prophylaxis: Heparin/SCDs Social: Patient resides in [facility] Disposition: Patient admitted inpatient with telemetry for surgical management of left hip fracture on 01/06/21. - Mortality Measure Prognosis:: Poor
[2021-01-04] MEDS: Metoprolol Succinate 50 MG Tab.ER PO SCH (08:11)
[2021-01-04] MEDS ORDERED: Sodium Polystyrene Sulfonate 15 GM/60 ML Susp 60 ML Bot PO ONE (08:49)
[2021-01-04] MEDS ORDERED: INSULIN DEGLUDEC 15 UNIT SQ SCH (09:00)
[2021-01-04] MEDS ORDERED: Gabapentin 300 MG Cap PO SCH (09:00)
[2021-01-04] MEDS ORDERED: Famotidine 20 MG Tab PO SCH (09:00)
[2021-01-04] MEDS ORDERED: Spironolactone 25 MG Tab PO SCH (09:00)
[2021-01-04] MEDS ORDERED: Calcium Carbonate 500 MG Tab.Chew PO PRN (09:48)
[2021-01-04] MEDS: Insulin Glarg,Human.Rec.Analog 100 Unit/ML SUBCUT SCH (09:57)
[2021-01-04] MEDS ORDERED: Furosemide 20 MG Tab PO SCH (11:00)
--- NOTE | 2021-01-04 12:07 | CR ---
Left elbow: 4 views left elbow were obtained. Comparison: No prior elbow study is available. Bony structures are osteopenic. Soft tissue swelling is noted. Slight bony irregularity is noted off the posterior olecranon process which appears to be old. No acute fracture, dislocation or other bony abnormality is appreciated. Impression: 1. Soft tissue swelling. 2. No acute osseous finding is seen. Diagnostic code #2
--- NOTE | 2021-01-04 12:09 | CT ---
CT left hip Technique: Multiple axial sections to the left hip were obtained. Reconstructed coronal and sagittal images were obtained. Findings: Severe narrowing is noted of the right hip joint. Joint space with left hip is fairly well maintained. Disc space narrowing is seen within the visualized lumbar levels. Degenerative change is noted within both sacroiliac joints with vacuum phenomena. Fracture is identified involving the anterior aspect of the left femoral head. Additional fracture is noted within the base of the left greater trochanter. No complete fracture is seen through the subcapital region or intertrochanteric region. No additional fracture is noted. Impression: 1. Fracture within the anterior aspect of the left femoral head as well as additional fracture involving the base of the greater trochanter. No complete fracture through the subcapital region or intertrochanteric region is seen. 2. Degenerative change as noted above. 3. No other acute abnormality is appreciated. Diagnostic code #3 MTDD
--- NOTE | 2021-01-04 12:19 | CR ---
Chest: Portable view of the chest was obtained. Comparison: Prior chest x-ray of 05/04/19. Findings: Heart is enlarged. Slight tortuosity of the thoracic aorta is noted. Pulmonary vessels are slightly increased. Lungs otherwise are clear. Bony structures are osteopenic. Scoliosis and degenerative change is noted within the spine. Impression: 1. Possible mild CHF. 2. Other findings as noted above. Diagnostic code #3
--- NOTE | 2021-01-04 12:19 | CR ---
Pelvis and left hip: AP view of the pelvis was obtained as well as 2 views of the left hip. Comparison: Previous AP pelvis study of 03/05/16. Severe joint space narrowing is noted within the right hip. Joint space of the left hip is fairly well preserved. Degenerative change is noted within the lumbar spine and within the sacroiliac joints. Fracture is identified involving the greater trochanter. No definite complete fracture is appreciated. Impression: 1. Fracture within the greater trochanter. No complete fracture is seen through the femoral neck or intertrochanteric region. 2. Degenerative change as noted above. Diagnostic code #3
[2021-01-04] MEDS: oxyCODONE 5 MG Tab PO PRN ×3 (12:35→20:48)
[2021-01-04] MEDS: Cyclobenzaprine 10 MG Tab PO PRN (12:36)
[2021-01-04] MEDS ORDERED: Lactated Ringers 1,000 ML IV SCH ×2 (13:30→18:00)
[2021-01-04] MEDS ORDERED: Tamsulosin 0.4 MG Cap.ER PO SCH (17:30)
[2021-01-04] MEDS ORDERED: Furosemide 20 MG/2 ML VIAL IVPUSH ONE (18:00)
[2021-01-04] MEDS: Gabapentin 600 MG Tab PO SCH (20:49)
[2021-01-05] MEDS: Heparin Sodium 5,000 Units/ML Vial SUBCUT SCH ×3 (06:33→21:18)
--- NOTE | 2021-01-05 07:29 | PCM.PN ---
- General Info Date of Service: 01/05/21 Admission Dx/Problem (Free Text): Admission Diagnosis/Problem Admission Diagnosis/Problem Hip fracture requiring operative repair Subjective Update: In to see Suma. She is laying in bed. She reports that she is having a bit of a rough morning and her pain in her hip is quite severe. Nursing reports that they just repositioned her. Left elbow bandage shows drainage from her skin tear. Nursing will change bandage today. Renal function has decreased and we will increase IV fluids. Patient is up to 3 L of oxygen which is not surprising given her pain medications and immobility. She is utilizing I-S. Plan is for surgery tomorrow. Functional Status: Reports: Pain Controlled (Mostly -when laying still no pain however severe pain with movement.), Tolerating Diet, Urinating (ortiz), Incent vilma Spirometry. Denies: Ambulating, New Symptoms - Review of Systems General: Reports: No Symptoms, Weakness, Fatigue, Malaise. Denies: Fever, Chills HEENT: Reports: No Symptoms. Denies: Headaches, Sore Throat Pulmonary: Reports: No Symptoms. Denies: Shortness of Breath, Cough, Sputum, Wheezing Cardiovascular: Reports: No Symptoms. Denies: Chest Pain, Palpitations, Dyspnea on Exertion, Lightheadedness Gastrointestinal: Reports: No Symptoms. Denies: Abdominal Pain, Constipation, Diarrhea, Nausea, Vomiting Genitourinary: Reports: No Symptoms. Denies: Pain Musculoskeletal: Reports: Arm Pain (left elbow), Leg Pain (left ) Skin: Reports: No Symptoms. Denies: Cyanosis Neurological: Reports: No Symptoms, Difficulty Walking, Weakness, Gait Disturbance. Denies: Confusion, Pre-Existing Deficit Psychiatric: Reports: No Symptoms - Patient Data Vitals - Most Recent: Last Vital Signs Temp 98.4 F 01/05/21 03:31 Pulse 70 01/05/21 03:31 Resp 16 01/05/21 03:31 BP 121/97 H 01/05/21 03:31 Pulse Ox 90 L 01/05/21 06:03 Weight - Most Recent: 155 lb 3.2 oz I&O - Last 24 Hours: Intake & Output 01/04/21 01/05/21 01/05/21 22:59 06:59 14:59 Intake Total 810 964 Output Total 275 400 Balance 535 564 Lab Results Last 24 Hours: Laboratory Results - last 24 hr 01/04/21 01/04/21 01/04/21 Range/Units 06:08 06:25 06:25 WBC 18.22 H (3.98-10.04) K/mm3 RBC 4.60 (3.98-5.22) M/mm3 Hgb 13.9 (11.2-15.7) gm/dl Hct 44.0 (34.1-44.9) % MCV 95.7 H (79.4-94.8) fl MCH 30.2 (25.6-32.2) pg MCHC 31.6 L (32.2-35.5) g/dl RDW Std Deviation 53.1 H (36.4-46.3) fL Plt Count 189 (182-369) K/mm3 MPV 10.5 (9.4-12.3) fl Neut % (Auto) 89.8 H (34.0-71.1) % Lymph % (Auto) 6.3 L (19.3-51.7) % Pitkin % (Auto) 3.1 L (4.7-12.5) % Eos % (Auto) 0.4 L (0.7-5.8) Baso % (Auto) 0.2 (0.1-1.2) % Neut # (Auto) 16.37 H (1.56-6.13) K/mm3 Lymph # (Auto) 1.14 L (1.18-3.74) K/mm3 Pitkin # (Auto) 0.57 H (0.24-0.36) K/mm3 Eos # (Auto) 0.07 (0.04-0.36) K/mm3 Baso # (Auto) 0.03 (0.01-0.08) K/mm3 Manual Slide Review Abnormal smear Sodium 140 (136-145) mEq/L Potassium 5.5 H (3.5-5.1) mEq/L Chloride 101 (98-107) mEq/L Carbon Dioxide 27 (21-32) mEq/L Anion Gap 17.5 H (5-15) BUN 29 H (7-18) mg/dL Creatinine 2.3 H (0.55-1.02) mg/dL Est Cr Clr Drug Dosing 11.91 mL/min Estimated GFR (MDRD) 20 (>60) mL/min BUN/Creatinine Ratio 12.6 L (14-18) Glucose 267 H (83-115) mg/dL POC Glucose 267 H (83-110) mg/dL Hemoglobin A1c ( - 5.6) % Calcium 9.1 (8.5-10.1) mg/dL Total Bilirubin 1.3 H (0.2-1.0) mg/dL AST 292 H (15-37) U/L ALT 327 H (14-59) U/L Alkaline Phosphatase 113 (46-116) U/L NT-Pro-B Natriuret Pep (0-450) pg/mL Total Protein 7.1 (6.4-8.2) g/dl Albumin 3.6 (3.4-5.0) g/dl Globulin 3.5 gm/dL Albumin/Globulin Ratio 1.0 (1-2) TSH 3rd Generation (0.358-3.74) uIU/mL 01/04/21 01/04/21 01/04/21 Range/Units 06:25 06:25 06:25 WBC (3.98-10.04) K/mm3 RBC (3.98-5.22) M/mm3 Hgb (11.2-15.7) gm/dl Hct (34.1-44.9) % MCV (79.4-94.8) fl MCH (25.6-32.2) pg MCHC (32.2-35.5) g/dl RDW Std Deviation (36.4-46.3) fL Plt Count (182-369) K/mm3 MPV (9.4-12.3) fl Neut % (Auto) (34.0-71.1) % Lymph % (Auto) (19.3-51.7) % Pitkin % (Auto) (4.7-12.5) % Eos % (Auto) (0.7-5.8) Baso % (Auto) (0.1-1.2) % Neut # (Auto) (1.56-6.13) K/mm3 Lymph # (Auto) (1.18-3.74) K/mm3 Pitkin # (Auto) (0.24-0.36) K/mm3 Eos # (Auto) (0.04-0.36) K/mm3 Baso # (Auto) (0.01-0.08) K/mm3 Manual Slide Review Sodium (136-145) mEq/L Potassium (3.5-5.1) mEq/L Chloride (98-107) mEq/L Carbon Dioxide (21-32) mEq/L Anion Gap (5-15) BUN (7-18) mg/dL Creatinine (0.55-1.02) mg/dL Est Cr Clr Drug Dosing mL/min Estimated GFR (MDRD) (>60) mL/min BUN/Creatinine Ratio (14-18) Glucose (83-115) mg/dL POC Glucose (83-110) mg/dL Hemoglobin A1c 7.0 H ( - 5.6) % Calcium (8.5-10.1) mg/dL Total Bilirubin (0.2-1.0) mg/dL AST (15-37) U/L ALT (14-59) U/L Alkaline Phosphatase (46-116) U/L NT-Pro-B Natriuret Pep 335 (0-450) pg/mL Total Protein (6.4-8.2) g/dl Albumin (3.4-5.0) g/dl Globulin gm/dL Albumin/Globulin Ratio (1-2) TSH 3rd Generation 3.093 (0.358-3.74) uIU/mL 01/04/21 01/04/21 01/04/21 Range/Units 12:22 17:04 21:11 WBC (3.98-10.04) K/mm3 RBC (3.98-5.22) M/mm3 Hgb (11.2-15.7) gm/dl Hct (34.1-44.9) % MCV (79.4-94.8) fl MCH (25.6-32.2) pg MCHC (32.2-35.5) g/dl RDW Std Deviation (36.4-46.3) fL Plt Count (182-369) K/mm3 MPV (9.4-12.3) fl Neut % (Auto) (34.0-71.1) % Lymph % (Auto) (19.3-51.7) % Pitkin % (Auto) (4.7-12.5) % Eos % (Auto) (0.7-5.8) Baso % (Auto) (0.1-1.2) % Neut # (Auto) (1.56-6.13) K/mm3 Lymph # (Auto) (1.18-3.74) K/mm3 Pitkin # (Auto) (0.24-0.36) K/mm3 Eos # (Auto) (0.04-0.36) K/mm3 Baso # (Auto) (0.01-0.08) K/mm3 Manual Slide Review Sodium (136-145) mEq/L Potassium (3.5-5.1) mEq/L Chloride (98-107) mEq/L Carbon Dioxide (21-32) mEq/L Anion Gap (5-15) BUN (7-18) mg/dL Creatinine (0.55-1.02) mg/dL Est Cr Clr Drug Dosing mL/min Estimated GFR (MDRD) (>60) mL/min BUN/Creatinine Ratio (14-18) Glucose (83-115) mg/dL POC Glucose 277 H 222 H 286 H (83-110) mg/dL Hemoglobin A1c ( - 5.6) % Calcium (8.5-10.1) mg/dL Total Bilirubin (0.2-1.0) mg/dL AST (15-37) U/L ALT (14-59) U/L Alkaline Phosphatase (46-116) U/L NT-Pro-B Natriuret Pep (0-450) pg/mL Total Protein (6.4-8.2) g/dl Albumin (3.4-5.0) g/dl Globulin gm/dL Albumin/Globulin Ratio (1-2) TSH 3rd Generation (0.358-3.74) uIU/mL 01/05/21 Range/Units 06:18 WBC 14.15 H (3.98-10.04) K/mm3 RBC 3.95 L (3.98-5.22) M/mm3 Hgb 12.0 D (11.2-15.7) gm/dl Hct 38.2 (34.1-44.9) % MCV 96.7 H (79.4-94.8) fl MCH 30.4 (25.6-32.2) pg MCHC 31.4 L (32.2-35.5) g/dl RDW Std Deviation 54.1 H (36.4-46.3) fL Plt Count 158 L (182-369) K/mm3 MPV 11.1 (9.4-12.3) fl Neut % (Auto) 77.4 H (34.0-71.1) % Lymph % (Auto) 12.4 L (19.3-51.7) % Pitkin % (Auto) 5.7 (4.7-12.5) % Eos % (Auto) 3.8 (0.7-5.8) Baso % (Auto) 0.2 (0.1-1.2) % Neut # (Auto) 10.94 H (1.56-6.13) K/mm3 Lymph # (Auto) 1.76 (1.18-3.74) K/mm3 Pitkin # (Auto) 0.81 H (0.24-0.36) K/mm3 Eos # (Auto) 0.54 H (0.04-0.36) K/mm3 Baso # (Auto) 0.03 (0.01-0.08) K/mm3 Manual Slide Review Sodium (136-145) mEq/L Potassium (3.5-5.1) mEq/L Chloride (98-107) mEq/L Carbon Dioxide (21-32) mEq/L Anion Gap (5-15) BUN (7-18) mg/dL Creatinine (0.55-1.02) mg/dL Est Cr Clr Drug Dosing mL/min Estimated GFR (MDRD) (>60) mL/min BUN/Creatinine Ratio (14-18) Glucose (83-115) mg/dL POC Glucose (83-110) mg/dL Hemoglobin A1c ( - 5.6) % Calcium (8.5-10.1) mg/dL Total Bilirubin (0.2-1.0) mg/dL AST (15-37) U/L ALT (14-59) U/L Alkaline Phosphatase (46-116) U/L NT-Pro-B Natriuret Pep (0-450) pg/mL Total Protein (6.4-8.2) g/dl Albumin (3.4-5.0) g/dl Globulin gm/dL Albumin/Globulin Ratio (1-2) TSH 3rd Generation (0.358-3.74) uIU/mL Med Orders - Current: Current Medications Albuterol/Ipratropium (Duoneb 3.0-0.5 Mg/3 Ml) 3 ml NEB Q4H PRN PRN Reason: Shortness Of Breath/wheezing Calcium Carbonate/Glycine (Tums) 500 mg PO Q4H PRN PRN Reason: Heartburn Cyclobenzaprine HCl (Flexeril) 10 mg PO TID PRN PRN Reason: muscle spasms Last Admin: 01/04/21 12:36 Dose: 10 mg Documented by: Docusate Sodium (Colace) 100 mg PO BID PRN PRN Reason: Constipation Famotidine (Pepcid) 20 mg PO DAILY [facility] Last Admin: 01/04/21 09:57 Dose: 20 mg Documented by: Gabapentin (Neurontin) 600 mg PO BID [facility] Last Admin: 01/04/21 20:49 Dose: 600 mg Documented by: Heparin Sodium (Porcine) (Heparin Sodium) 5,000 units SUBCUT Q8H [facility] Last Admin: 01/05/21 06:33 Dose: 5,000 units Documented by: Hydralazine HCl (Apresoline) 10 mg IVPUSH Q4H PRN PRN Reason: Hypertension Hydromorphone HCl (Dilaudid) 0.5 mg IVPUSH Q4H PRN PRN Reason: Pain (severe 7-10) Last Admin: 01/04/21 05:13 Dose: 0.5 mg Documented by: Promethazine HCl 12.5 mg/ (Sodium Chloride) 50.5 mls @ 100 mls/hr IV Q6H PRN PRN Reason: Nausea/Vomiting Lactated Ringer's (Ringers, Lactated) 1,000 mls @ 65 mls/hr IV ASDIRECTED [facility] Last Admin: 01/05/21 06:46 Dose: 65 mls/hr Documented by: Insulin Glargine (Lantus) 15 unit SUBCUT DAILY [facility] Last Admin: 01/04/21 09:57 Dose: 15 units Documented by: Insulin Human Lispro (Humalog) 0 unit SUBCUT QIDACANDBED [facility]; Protocol Last Admin: 01/04/21 22:30 Dose: 6 units Documented by: Metoprolol Succinate (Toprol Xl) 50 mg PO DAILY [facility] Last Admin: 01/04/21 08:11 Dose: 50 mg Documented by: Oxycodone HCl (Oxycodone) 5 mg PO Q6H PRN PRN Reason: Pain (moderate 4-6) Last Admin: 01/04/21 20:48 Dose: 5 mg Documented by: Discontinued Medications Acetaminophen (Tylenol) 650 mg PO Q6H PRN PRN Reason: Pain (Mild 1-3)/fever Last Admin: 01/04/21 12:34 Dose: 650 mg Documented by: Calcium Carbonate/Glycine (Tums) 400 mg PO Q4H PRN PRN Reason: Heartburn Furosemide (Lasix) 40 mg IVPUSH NOW ONE Stop: 01/03/21 21:42 Last Admin: 01/03/21 22:00 Dose: 40 mg Documented by: Furosemide (Lasix) 20 mg PO DAILY [facility] Last Admin: 01/04/21 13:04 Dose: Not Given Documented by: Furosemide (Lasix) 20 mg IVPUSH ONETIME ONE Stop: 01/04/21 18:01 Last Admin: 01/04/21 18:47 Dose: 20 mg Documented by: Gabapentin (Neurontin) 600 mg PO BID [facility] Last Admin: 01/04/21 08:10 Dose: 600 mg Documented by: Hydromorphone HCl (Dilaudid) 0.25 mg IVPUSH ONETIME ONE Stop: 01/03/21 20:02 Last Admin: 01/03/21 20:10 Dose: 0.25 mg Documented by: Hydromorphone HCl (Dilaudid) 0.25 mg IVPUSH ONETIME ONE Stop: 01/03/21 22:22 Last Admin: 01/03/21 23:17 Dose: 0.25 mg Documented by: Sodium Chloride (Normal Saline) 1,000 mls @ 65 mls/hr IV ASDIRECTED [facility] Lactated Ringer's (Ringers, Lactated) 1,000 mls @ 50 mls/hr IV ASDIRECTED [facility] Last Admin: 01/04/21 14:18 Dose: 50 mls/hr Documented by: Lidocaine HCl (Xylocaine 1%) 10 ml INJECT ONETIME ONE Stop: 01/03/21 18:58 Last Admin: 01/04/21 00:57 Dose: Not Given Documented by: Non-Formulary Medication (Insulin Degludec [Tresiba]) 15 unit SQ DAILY [facility] Ondansetron HCl (Zofran) 4 mg IVPUSH ONETIME ONE Stop: 01/03/21 18:48 Last Admin: 01/03/21 18:51 Dose: 4 mg Documented by: Ondansetron HCl (Zofran) Confirm Administered Dose 4 mg .ROUTE .STK-MED ONE Stop: 01/03/21 19:51 Last Admin: 01/03/21 20:11 Dose: Not Given Documented by: Ondansetron HCl (Zofran) 4 mg IVPUSH ONETIME ONE Stop: 01/03/21 20:07 Last Admin: 01/03/21 20:11 Dose: 4 mg Documented by: Sodium Polystyrene Sulfonate (Kayexalate) 15 gm PO ONETIME ONE Stop: 01/04/21 08:50 Last Admin: 01/04/21 09:57 Dose: 15 gm Documented by: Spironolactone (Aldactone) 50 mg PO DAILY [facility] Last Admin: 01/04/21 08:10 Dose: 50 mg Documented by: Tamsulosin HCl (Flomax) 0.4 mg PO DAILY [facility] Last Admin: 01/04/21 17:44 Dose: Not Given Documented by: - Exam Quality Assessment: Supplemental Oxygen (3L), Urine Catheter, DVT Prophylaxis General: Alert, Oriented, Cooperative, No Acute Distress HEENT: Pupils Equal, Pupils Reactive, Mucous Membr. Moist/Armstrong Neck: Supple, Trachea Midline Lungs: Clear to Auscultation, Normal Respiratory Effort Cardiovascular: Regular Rate, Regular Rhythm GI/Abdominal Exam: Normal Bowel Sounds, Soft, Non-Tender, No Organomegaly, No Distention (Female) Exam: Deferred Extremities: Pedal Edema (1+), Leg Pain (left), Limited Range of Motion Skin: Warm, Dry, Intact Neurological: No New Focal Deficit Psy/Mental Status: Alert, Normal Affect, Normal Mood Sepsis Event Note - Evaluation Sepsis Screening Result: No Definite Risk - Focused Exam Vital Signs: Vital Signs Temp Pulse Resp BP Pulse Ox Pulse Ox 01/05/21 06:03 90 L 01/05/21 03:31 98.4 F 70 16 121/97 H 93 L 01/04/21 23:41 98.1 F 61 16 113/63 91 L 01/04/21 22:06 93 L 01/04/21 20:48 93 L - Problem List & Annotations (1) Closed left hip fracture SNOMED Code(s): 535252235 Code(s): S72.002A - FRACTURE OF UNSP PART OF NECK OF LEFT FEMUR, INIT Status: Acute Priority: High Current Visit: Yes Qualifiers: Encounter type: initial encounter Qualified Code(s): S72.002A - Fracture of unspecified part of neck of left femur, initial encounter for closed fracture (2) Anemia SNOMED Code(s): 350232360 Code(s): D64.9 - ANEMIA, UNSPECIFIED Status: Chronic Priority: Medium Current Visit: No Onset Date: 04/30/19 Qualifiers: Anemia type: due to chronic 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) Qualified Code(s): N18.4 - Chronic kidney disease, stage 4 (severe); D63.1 - Anemia in chronic kidney disease Annotation/Comment:: anemia sec to anticoagulation with xarolto / plavix and asa asa held mild bleeding noted from hemmhroids (3) CHF (congestive heart failure), NYHA class II SNOMED Code(s): 068593256, 135288761 Code(s): I50.9 - HEART FAILURE, UNSPECIFIED Status: Chronic Priority: Medium Current Visit: No Onset Date: 05/01/19 Qualifiers: Congestive heart failure type: unspecified Qualified Code(s): I50.9 - Heart failure, unspecified (4) Fall SNOMED Code(s): 1273362, 577532752 Code(s): W19.XXXA - UNSPECIFIED FALL, INITIAL ENCOUNTER Status: Acute Priority: High Current Visit: Yes Qualifiers: Encounter type: subsequent encounter Qualified Code(s): W19.XXXD - Unspecified fall, subsequent encounter (5) DM2 (diabetes mellitus, type 2) SNOMED Code(s): 16435743 Code(s): E11.9 - TYPE 2 DIABETES MELLITUS WITHOUT COMPLICATIONS Status: Chronic Priority: High Current Visit: No Onset Date: 05/02/19 Qualifiers: Diabetes mellitus senior care insulin use: unspecified senior care insulin use status Diabetes mellitus complication status: with unspecified complications (6) Afib SNOMED Code(s): 56505160 Code(s): I48.91 - UNSPECIFIED ATRIAL FIBRILLATION Status: Chronic Priority: Low Current Visit: No Qualifiers: Atrial fibrillation type: paroxysmal Qualified Code(s): I48.0 - Paroxysmal atrial fibrillation (7) HTN (hypertension) SNOMED Code(s): 83373465 Code(s): I10 - ESSENTIAL (PRIMARY) HYPERTENSION Status: Chronic Priority: Medium Current Visit: No Qualifiers: Hypertension type: unspecified Qualified Code(s): I10 - Essential (primary) hypertension (8) Chronic constipation SNOMED Code(s): 429924430 Code(s): K59.09 - OTHER CONSTIPATION Status: Chronic Priority: Low Current Visit: No (9) Urinary retention SNOMED Code(s): 965970176 Code(s): R33.9 - RETENTION OF URINE, UNSPECIFIED Status: Chronic Priority: Low Current Visit: No (10) Chronic back pain SNOMED Code(s): 014192143 Code(s): M54.9 - DORSALGIA, UNSPECIFIED; G89.29 - OTHER CHRONIC PAIN Status: Chronic Priority: Low Current Visit: No Qualifiers: Back pain location: back pain in unspecified location Back pain laterality: unspecified Qualified Code(s): M54.9 - Dorsalgia, unspecified; G89.29 - Other chronic pain (11) History of TIA (transient ischemic attack) SNOMED Code(s): 043751780 Code(s): Z86.73 - PRSNL HX OF TIA (TIA), AND CEREB INFRC W/O RESID DEFICITS Status: Chronic Priority: Low Current Visit: No (12) Depression SNOMED Code(s): 19099985 Code(s): F32.9 - MAJOR DEPRESSIVE DISORDER, SINGLE EPISODE, UNSPECIFIED Status: Chronic Priority: Low Current Visit: No Qualifiers: Depression Type: other depression Qualified Code(s): F32.89 - Other specified depressive episodes (13) shelter resident SNOMED Code(s): 722293431 Code(s): Z59.3 - PROBLEMS RELATED TO LIVING IN RESIDENTIAL INSTITUTION Status: Chronic Priority: Low Current Visit: No (14) Hyperbilirubinemia SNOMED Code(s): 17009254 Code(s): E80.6 - OTHER DISORDERS OF BILIRUBIN METABOLISM Status: Acute Priority: Medium Current Visit: Yes (15) Elevated AST (SGOT) SNOMED Code(s): 599484982 Code(s): R74.01 - ELEVATION OF LEVELS OF LIVER TRANSAMINASE LEVELS Status: Acute Priority: Medium Current Visit: Yes (16) Elevated ALT measurement SNOMED Code(s): 058991823 Code(s): R74.01 - ELEVATION OF LEVELS OF LIVER TRANSAMINASE LEVELS Status: Acute Priority: Medium Current Visit: Yes (17) Acute on chronic renal failure SNOMED Code(s): 463851013 Code(s): N17.9 - ACUTE KIDNEY FAILURE, UNSPECIFIED; N18.9 - CHRONIC KIDNEY DISEASE, UNSPECIFIED Status: Acute Priority: High Current Visit: Yes Qualifiers: 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) Qualified Code(s): N17.2 - Acute kidney failure with medullary necrosis; N18.4 - Chronic kidney disease, stage 4 (severe) (18) Hyperkalemia SNOMED Code(s): 16545643 Code(s): E87.5 - HYPERKALEMIA Status: Resolved Priority: High Current Visit: Yes - Problem List Review Problem List Initiated/Reviewed/Updated: Yes - My Orders Last 24 Hours: My Active Orders 01/04/21 08:50 EKG 12 Lead [EKG Documentation Completion] [RC] ROUTINE 01/04/21 08:51 Consult to Case Management/Print Buyer [CONS] Routine 01/04/21 08:55 Notify Provider Consults [RC] ASDIRECTED Consult to Physician [CONS] Routine 01/04/21 08:56 RT Incentive Spirometry [RC] ASDIRECTED 01/04/21 09:00 Famotidine [Pepcid] 20 mg PO DAILY 01/04/21 10:43 Cyclobenzaprine [Flexeril] 10 mg PO TID PRN 01/04/21 10:46 Antiembolic Devices [RC] PER UNIT ROUTINE SCD [Sequential Compression Device] [OM.PC] Routine 01/05/21 06:18 MAGNESIUM [CHEM] AM 01/06/21 05:11 MAGNESIUM [CHEM] AM 01/07/21 05:11 MAGNESIUM [CHEM] AM 01/08/21 05:11 MAGNESIUM [CHEM] AM - Assessment Assessment:: Assessment - Day of admission 01/04/21 (admitted late 01/03/21) * 89 Yo female who presents after fall at [facility]F resulting in left hip and elbow pain * Unknown why she fell. Hit head. Skin tear on left elbow * Left leg externally rotated and shortened * 12-lead EKG shows NSR at 81 BPM with a first degree AV block. * Head CT shows air-fluid levels in right maxillary sinus and senescent change. Nothing acute * Left hip X-ray suspicious for fracture * Left elbow x-ray shows nothing acute * 4cm skin tear on left elbow with skin missing repaired with steri-strips and gauze * Left Hip CT shows acute complex proximal left femoral fracture * Predominant fracture line appears to be predominantly basocervical oblique however a fracture line extends superolaterally anteriorly transcervically. * Fracture lines involving the greater trochanter as well. * There is some angulation and overriding of the fracture fragments. * CXR shows nothing acute * Dr. Huertas, orthopedic surgeon consulted by ED - plans for surgery on 01/06/21 due to patient being on Plavix\ * Given Dilaudid for pain and Zofran for nausea * Labs: * WBC 16.81 --> 18.22 * hemoglobin 13.6 --> 13.9 * platelet 232 --> 189 * neutrophils 13.83 --> 16.37 * INR 0.96 * sodium 143 --> 140 * potassium 4.7 --> 5.5 * anion gap 14.7 --> 17.5 * BUN 25 --> 29 * creatinine 2.1 --> 2.3 * GFR 20 ---> 20 * glucose 91 --> 267 * magnesium 2.4 * total bilirubin 0.5 --> 1.3 * AST 38 ---> 192 * ALT 32 --> 327 * alkaline phosphatase 77 --> 113 * troponin less than 0.017 * proBNP 136 --> 335 * albumin 3.6 --> 3.6 * UA negative but trace leukocyte esterase, 5-10 hyaline casts, and many bacteria noted * SARS Covid 2 RNA negative * MRSA negative * urine culture pending 01/05/21 * Continued left hip pain with movement. No pain when laying still. * Left elbow bandage noted to be saturated with drainage. Nursing will change * Up to 3 L of oxygen via nasal cannula. Has been utilizing I-S. * Renal function has been getting progressively worse. Will increase IV fluids and monitor. * Transaminitis is improving and bilirubin is trending downward. * Continue plan for surgery tomorrow. * Labs today: * WBC 14.15 * hemoglobin 12.0 * platelet 158 * neutrophils 10.94 * sodium 142 * potassium 4.1 * anion gap 13.1 * BUN 37, creatinine 2.6, GFR 17 * bilirubin 1.2 * AST 149, ALT 226, alk phos 87 * albumin 3.0 - Plan Plan:: Closed left hip fracture Fall shelter resident * Pain medications as ordered * Bedrest * Ortiz until post surgical * Flexeril as ordered * PT/OT * CM/SW for discharge planning * Dr. Huertas, orthopedic surgeon consulted in ED * Planning surgery on 01/06/21 (wait due to Plavix) * Hold home Plavix * Heparin/SCDs for VTE * IS * Optimize for surgery * Ice pack as needed Hyperbilirubinemia, improved Elevated AST (SGOT), improved Elevated ALT measurement, improved * Avoid tylenol * Re-check labs and monitor * IV fluids as ordered Acute on chronic renal failure * Increase IV fluids * Avoid nephrotoxic medications * Monitor labs DM2 (diabetes mellitus, type 2) * Lantus (sub for Tresiba) at home dosing * Medium scale humalog * QID AC and bedtime blood glucose checks * Consistent carbohydrate diet Anemia CHF (congestive heart failure), NYHA class II Afib HTN (hypertension) Chronic constipation Urinary retention Chronic back pain History of TIA (transient ischemic attack) Depression * Review/reconcile home medications * Telemetry * PRN stool softeners Resolved: Hyperkalemia Code status: DNR/DNI PCP: Dr. Winchester DVT prophylaxis: Heparin/SCDs Social: Patient resides in [facility] Disposition: Patient admitted inpatient with telemetry for surgical management of left hip fracture on 01/06/21.
[2021-01-05] MEDS: oxyCODONE 5 MG Tab PO PRN (08:56)
[2021-01-05] MEDS: Metoprolol Succinate 50 MG Tab.ER PO SCH (08:57)
[2021-01-05] MEDS: Gabapentin 600 MG Tab PO SCH ×2 (08:58→20:39)
[2021-01-05] MEDS: Insulin Glarg,Human.Rec.Analog 100 Unit/ML SUBCUT SCH (08:58)
[2021-01-05] MEDS ORDERED: Lactated Ringers 1,000 ML IV SCH (09:30)
[2021-01-05] MEDS: HYDROmorphone 0.5 MG/0.5 ML Syringe IVPUSH PRN (09:54)
--- NOTE | 2021-01-05 12:24 | PCM.PREANE ---
Preanesthetic Assessment - Procedure Proposed Procedure: Left hip fracture with katey and screws - Anesthesia/Transfusion/Family Hx Anesthesia History: Prior Anesthesia Reaction (nausea and vomiting) Family History of Anesthesia Reaction: No Transfusion History: No Prior Transfusion(s) - Review of Systems General: Weakness, Malaise Pulmonary: Shortness of Breath Cardiovascular: Dyspnea on Exertion Gastrointestinal: No Symptoms Neurological: Difficulty Walking Other: Reports: Easy Bleeding (Plavix), Easy Bruising, Diabetes - Physical Assessment Vital Signs: Last Vital Signs Temp 37.2 C 01/05/21 08:10 Pulse 73 01/05/21 09:05 Resp 16 01/05/21 08:10 BP 115/67 01/05/21 08:57 Pulse Ox 92 L 01/05/21 09:05 Height: 1.5 m Weight: 70.398 kg ASA Class: 3 Mental Status: Alert & Oriented x3 Airway Class: Mallampati = 3 Dentition: Reports: Partial (top) Thyro-Mental Finger Breadths: 2 Mouth Opening Finger Breadths: 2 ROM/Head Extension: Limited/Partial Lungs: Clear to Auscultation, Normal Respiratory Effort Cardiovascular: Regular Rate, Regular Rhythm, No Murmurs - Lab Values: Laboratory Last Values WBC 14.15 K/mm3 (3.98-10.04) H 01/05/21 06:18 RBC 3.95 M/mm3 (3.98-5.22) L 01/05/21 06:18 Hgb 12.0 gm/dl (11.2-15.7) D 01/05/21 06:18 Hct 38.2 % (34.1-44.9) 01/05/21 06:18 MCV 96.7 fl (79.4-94.8) H 01/05/21 06:18 MCH 30.4 pg (25.6-32.2) 01/05/21 06:18 MCHC 31.4 g/dl (32.2-35.5) L 01/05/21 06:18 RDW Std Deviation 54.1 fL (36.4-46.3) H 01/05/21 06:18 Plt Count 158 K/mm3 (182-369) L 01/05/21 06:18 MPV 11.1 fl (9.4-12.3) 01/05/21 06:18 Neut % (Auto) 77.4 % (34.0-71.1) H 01/05/21 06:18 Lymph % (Auto) 12.4 % (19.3-51.7) L 01/05/21 06:18 [place] % (Auto) 5.7 % (4.7-12.5) 01/05/21 06:18 Eos % (Auto) 3.8 (0.7-5.8) 01/05/21 06:18 Baso % (Auto) 0.2 % (0.1-1.2) 01/05/21 06:18 Neut # (Auto) 10.94 K/mm3 (1.56-6.13) H 01/05/21 06:18 Lymph # (Auto) 1.76 K/mm3 (1.18-3.74) 01/05/21 06:18 [place] # (Auto) 0.81 K/mm3 (0.24-0.36) H 01/05/21 06:18 Eos # (Auto) 0.54 K/mm3 (0.04-0.36) H 01/05/21 06:18 Baso # (Auto) 0.03 K/mm3 (0.01-0.08) 01/05/21 06:18 Manual Slide Review Normal smear 01/05/21 06:18 PT 10.3 SECONDS (9.7-12.0) 01/03/21 17:58 INR 0.96 01/03/21 17:58 APTT 23.1 SECONDS (21.7-31.4) 01/03/21 17:58 Sodium 142 mEq/L (136-145) 01/05/21 06:18 Potassium 4.1 mEq/L (3.5-5.1) 01/05/21 06:18 Chloride 103 mEq/L (98-107) 01/05/21 06:18 Carbon Dioxide 30 mEq/L (21-32) 01/05/21 06:18 Anion Gap 13.1 (5-15) 01/05/21 06:18 BUN 37 mg/dL (7-18) H 01/05/21 06:18 Creatinine 2.6 mg/dL (0.55-1.02) H 01/05/21 06:18 Est Cr Clr Drug Dosing 10.54 mL/min 01/05/21 06:18 Estimated GFR (MDRD) 17 mL/min (>60) 01/05/21 06:18 BUN/Creatinine Ratio 14.2 (14-18) 01/05/21 06:18 Glucose 184 mg/dL (83-115) H 01/05/21 06:18 POC Glucose 204 mg/dL (83-110) H 01/05/21 11:51 Hemoglobin A1c 7.0 % (-5.6) H 01/04/21 06:25 Calcium 8.6 mg/dL (8.5-10.1) 01/05/21 06:18 Magnesium 2.1 mg/dl (1.8-2.4) 01/05/21 06:18 Total Bilirubin 1.2 mg/dL (0.2-1.0) H 01/05/21 06:18 AST 149 U/L (15-37) H 01/05/21 06:18 ALT 226 U/L (14-59) H 01/05/21 06:18 Alkaline Phosphatase 87 U/L (46-116) 01/05/21 06:18 Troponin I < 0.017 ng/mL (0.00-0.056) 01/03/21 17:58 NT-Pro-B Natriuret Pep 335 pg/mL (0-450) 01/04/21 06:25 Total Protein 6.3 g/dl (6.4-8.2) L 01/05/21 06:18 Albumin 3.0 g/dl (3.4-5.0) L 01/05/21 06:18 Globulin 3.3 gm/dL 01/05/21 06:18 Albumin/Globulin Ratio 0.9 (1-2) L 01/05/21 06:18 TSH 3rd Generation 3.093 uIU/mL (0.358-3.74) 01/04/21 06:25 Urine Color Light yellow (Yellow) 01/03/21 19:55 Urine Appearance Clear (Clear) 01/03/21 19:55 Urine pH 6.0 (5.0-8.0) 01/03/21 19:55 Ur Specific [place] 1.020 (1.005-1.030) 01/03/21 19:55 Urine Protein Negative (Negative) 01/03/21 19:55 Urine Glucose (UA) Negative (Negative) 01/03/21 19:55 Urine Ketones Negative (Negative) 01/03/21 19:55 Urine Occult Blood Negative (Negative) 01/03/21 19:55 Urine Nitrite Negative (Negative) 01/03/21 19:55 Urine Bilirubin Negative (Negative) 01/03/21 19:55 Urine Urobilinogen 0.2 (0.2-1.0) 01/03/21 19:55 Ur Leukocyte Esterase Trace (Negative) H 01/03/21 19:55 U Hyaline Cast (Auto) 5-10 /lpf (0-5) H 01/03/21 19:55 Urine RBC 0-5 /hpf (0-5) 01/03/21 19:55 Urine WBC 0-5 /hpf (0-5) 01/03/21 19:55 Ur Squamous Epith Cells 0-5 /hpf (0-5) 01/03/21 19:55 Urine Bacteria Many /hpf (FEW) H 01/03/21 19:55 Urine Mucus Not seen /hpf (FEW) 01/03/21 19:55 SARS-CoV-2 RNA (HAYDE) Negative (NEGATIVE) 01/03/21 18:55 MRSA (PCR) Negative 01/04/21 00:05 - Imaging/EKG Impressions: EKG NSR rate 81 first degree AV block - Allergies Allergies/Adverse Reactions: Allergies Allergy/AdvReac Type Severity Reaction Status Date / Time levofloxacin [From Levaquin] Allergy Itching Verified 01/03/21 19:06 - Anesthesia Plan Pre-Op Medication Ordered: Beta Tram Beta Tram: Metoprolol Med Last Dose Date: 01/05/21 Med Last Dose Time: 09:00 - Acknowledgements Anesthesia Type Planned: Regional Block, MAC Pt an Appropriate Candidate for the Planned Anesthesia: Yes Alternatives and Risks of Anesthesia Discussed w Pt/Guardian: Yes Pt/Guardian Understands and Agrees with Anesthesia Plan: Yes PreAnesthesia Questionnaire HEENT History: Reports: Impaired Vision Other HEENT History: dysphagia Cardiovascular History: Reports: Afib, Arrhythmia, Heart Failure, Hypertension Other Cardiovascular History: Afib, anemia Respiratory History: Reports: Pneumonia, Recurrent, Other (See Below) Other Respiratory History: hypoxemia requiring home O2 Gastrointestinal History: Reports: Chronic Constipation Other Gastrointestinal History: dysphagia Genitourinary History: Reports: Chronic Renal Insuffiency, Retention, Urinary [place] History: Reports: Musculoskeletal History: Reports: Back Pain, Chronic Other Musculoskeletal History: muscle weakness Neurological History: Reports: TIA, Other (See Below) Other Neuro History: cerebral infarct; neuralgia Psychiatric History: Reports: Dementia, Depression Other Psychiatric History: vascular dementia Endocrine/Metabolic History: Reports: Diabetes, Type II Hematologic History: Reports: Anemia Oncologic (Cancer) History: Reports: Other (See Below) Other Oncologic History: unknown skin cancer Dermatologic History: Reports: Other (See Below) Other Dermatologic History: previous supspected skin cancer - Infectious Disease History Infectious Disease History: Reports: Chicken Pox, Influenza, Measles, Mumps - Past Surgical History HEENT Surgical History: Reports: None Cardiovascular Surgical History: Reports: None GI Surgical History: Reports: Cholecystectomy Female Surgical History: Reports: None Oncologic Surgical History: Reports: None - SUBSTANCE USE Tobacco Use Status *Q: Unknown Ever Used Tobacco Tobacco Use Within Last Twelve Months: No Second Hand Smoke Exposure: No Days Per Week of Alcohol Use: 0 Number of Drinks Per Day: 0 Total Drinks Per Week: 0 Recreational Drug Use History: No - HOME MEDS Home Medications: Home Meds Clopidogrel [Plavix] 75 mg PO DAILY 10/20/15 [History] Gabapentin [Neurontin] 600 mg PO BID 10/20/15 [History] Insulin Aspart [Novolog Flexpen] 13 unit SQ TID 10/20/15 [History] Acetaminophen 500 mg PO BEDTIME 07/12/16 [History] Calcium Carbonate [Tums] 400 mg PO Q4H PRN 07/12/16 [History] Vitamin E 400 unit PO DAILY 07/12/16 [History] Furosemide [Lasix] 20 mg PO ASDIRECTED PRN 04/29/19 [History] Furosemide [Lasix] 20 mg PO DAILY 04/29/19 [History] Insulin Degludec [Tresiba] 20 unit SQ BEDTIME 04/29/19 [History] MO/Pet,Wh/Phenylephrine/Shk Lv [Preparation H Oint] 1 appful RECTAL ASDIRECTED PRN 04/29/19 [History] Metoprolol Succinate 50 mg PO DAILY 04/29/19 [History] polyethylene glycoL 3350 [MiraLAX] 17 gm PO ASDIRECTED PRN 04/29/19 [History] Albuterol/Ipratropium [DuoNeb 3.0-0.5 MG/3 ML] 3 ml NEB QIDRT #120 neb 05/06/19 [Rx] Spironolactone [Aldactone] 50 mg PO DAILY #30 tablet 05/06/19 [Rx] Insulin Aspart [NovoLOG] 1 dose SUBCUT TID 08/31/20 [History] - CURRENT (IN HOUSE) MEDS Current Meds: Current Medications Albuterol/Ipratropium (Duoneb 3.0-0.5 Mg/3 Ml) 3 ml NEB Q4H PRN PRN Reason: Shortness Of Breath/wheezing Calcium Carbonate/Glycine (Tums) 500 mg PO Q4H PRN PRN Reason: Heartburn Cyclobenzaprine HCl (Flexeril) 10 mg PO TID PRN PRN Reason: muscle spasms Last Admin: 01/04/21 12:36 Dose: 10 mg Documented by: Docusate Sodium (Colace) 100 mg PO BID PRN PRN Reason: Constipation Famotidine (Pepcid) 20 mg PO Q48H [facility] Gabapentin (Neurontin) 600 mg PO BID [facility] Last Admin: 01/05/21 08:58 Dose: 600 mg Documented by: Heparin Sodium (Porcine) (Heparin Sodium) 5,000 units SUBCUT Q8H [facility] Stop: 01/05/21 23:00 Last Admin: 01/05/21 06:33 Dose: 5,000 units Documented by: Hydralazine HCl (Apresoline) 10 mg IVPUSH Q4H PRN PRN Reason: Hypertension Hydromorphone HCl (Dilaudid) 0.5 mg IVPUSH Q4H PRN PRN Reason: Pain (severe 7-10) Last Admin: 01/05/21 09:54 Dose: 0.5 mg Documented by: Promethazine HCl 12.5 mg/ (Sodium Chloride) 50.5 mls @ 100 mls/hr IV Q6H PRN PRN Reason: Nausea/Vomiting Lactated Ringer's (Ringers, Lactated) 1,000 mls @ 100 mls/hr IV ASDIRECTED [facility] Stop: 01/05/21 19:29 Last Admin: 01/05/21 09:44 Dose: 100 mls/hr Documented by: Insulin Glargine (Lantus) 15 unit SUBCUT DAILY [facility] Last Admin: 01/05/21 08:58 Dose: 15 units Documented by: Insulin Human Lispro (Humalog) 0 unit SUBCUT QIDACANDBED [facility]; Protocol Last Admin: 01/05/21 12:06 Dose: 4 units Documented by: Metoprolol Succinate (Toprol Xl) 50 mg PO DAILY [facility] Last Admin: 01/05/21 08:57 Dose: 50 mg Documented by: Oxycodone HCl (Oxycodone) 5 mg PO Q6H PRN PRN Reason: Pain (moderate 4-6) Last Admin: 01/05/21 08:56 Dose: 5 mg Documented by: Discontinued Medications Acetaminophen (Tylenol) 650 mg PO Q6H PRN PRN Reason: Pain (Mild 1-3)/fever Last Admin: 01/04/21 12:34 Dose: 650 mg Documented by: Calcium Carbonate/Glycine (Tums) 400 mg PO Q4H PRN PRN Reason: Heartburn Famotidine (Pepcid) 20 mg PO DAILY [facility] Last Admin: 01/04/21 09:57 Dose: 20 mg Documented by: Furosemide (Lasix) 40 mg IVPUSH NOW ONE Stop: 01/03/21 21:42 Last Admin: 01/03/21 22:00 Dose: 40 mg Documented by: Furosemide (Lasix) 20 mg PO DAILY [facility] Last Admin: 01/04/21 13:04 Dose: Not Given Documented by: Furosemide (Lasix) 20 mg IVPUSH ONETIME ONE Stop: 01/04/21 18:01 Last Admin: 01/04/21 18:47 Dose: 20 mg Documented by: Gabapentin (Neurontin) 600 mg PO BID [facility] Last Admin: 01/04/21 08:10 Dose: 600 mg Documented by: Hydromorphone HCl (Dilaudid) 0.25 mg IVPUSH ONETIME ONE Stop: 01/03/21 20:02 Last Admin: 01/03/21 20:10 Dose: 0.25 mg Documented by: Hydromorphone HCl (Dilaudid) 0.25 mg IVPUSH ONETIME ONE Stop: 01/03/21 22:22 Last Admin: 01/03/21 23:17 Dose: 0.25 mg Documented by: Sodium Chloride (Normal Saline) 1,000 mls @ 65 mls/hr IV ASDIRECTED [facility] Lactated Ringer's (Ringers, Lactated) 1,000 mls @ 50 mls/hr IV ASDIRECTED [facility] Last Admin: 01/04/21 14:18 Dose: 50 mls/hr Documented by: Lactated Ringer's (Ringers, Lactated) 1,000 mls @ 65 mls/hr IV ASDIRECTED [facility] Last Admin: 01/05/21 06:46 Dose: 65 mls/hr Documented by: Lidocaine HCl (Xylocaine 1%) 10 ml INJECT ONETIME ONE Stop: 01/03/21 18:58 Last Admin: 01/04/21 00:57 Dose: Not Given Documented by: Non-Formulary Medication (Insulin Degludec [Tresiba]) 15 unit SQ DAILY [facility] Ondansetron HCl (Zofran) 4 mg IVPUSH ONETIME ONE Stop: 01/03/21 18:48 Last Admin: 01/03/21 18:51 Dose: 4 mg Documented by: Ondansetron HCl (Zofran) Confirm Administered Dose 4 mg .ROUTE .STK-MED ONE Stop: 01/03/21 19:51 Last Admin: 01/03/21 20:11 Dose: Not Given Documented by: Ondansetron HCl (Zofran) 4 mg IVPUSH ONETIME ONE Stop: 01/03/21 20:07 Last Admin: 01/03/21 20:11 Dose: 4 mg Documented by: Sodium Polystyrene Sulfonate (Kayexalate) 15 gm PO ONETIME ONE Stop: 01/04/21 08:50 Last Admin: 01/04/21 09:57 Dose: 15 gm Documented by: Spironolactone (Aldactone) 50 mg PO DAILY [facility] Last Admin: 01/04/21 08:10 Dose: 50 mg Documented by: Tamsulosin HCl (Flomax) 0.4 mg PO DAILY [facility] Last Admin: 01/04/21 17:44 Dose: Not Given Documented by:
[2021-01-05] MEDS: Lactated Ringers 1,000 ML IV SCH (18:26)
[2021-01-05] MEDS: Acetaminophen 325 MG Tab PO PRN (23:27)
[2021-01-06] MEDS: oxyCODONE 5 MG Tab PO PRN ×2 (01:36→21:48)
[2021-01-06] MEDS: Lactated Ringers 1,000 ML IV SCH (07:37)
[2021-01-06] MEDS: HYDROmorphone 0.5 MG/0.5 ML Syringe IVPUSH PRN (08:18)
[2021-01-06] MEDS: Metoprolol Succinate 50 MG Tab.ER PO SCH (08:23)
[2021-01-06] MEDS: Gabapentin 600 MG Tab PO SCH ×2 (08:23→21:35)
[2021-01-06] MEDS: Famotidine 20 MG Tab PO SCH (08:23)
[2021-01-06] MEDS: Insulin Glarg,Human.Rec.Analog 100 Unit/ML SUBCUT SCH (08:50)
[2021-01-06] MEDS ORDERED: Bupivacaine 0.5% 30 ML SDV ONE (09:55)
[2021-01-06] MEDS ORDERED: Ropivacaine 0.5% 5 MG/ML 30 ML SDV ONE (09:56)
[2021-01-06] MEDS ORDERED: Lidocaine 2% with EPINEPHrine 1:200,000 20 ML SDV ONE (10:12)
[2021-01-06] MEDS ORDERED: fentaNYL 100 MCG/2 ML SDV ONE (10:45)
[2021-01-06] MEDS ORDERED: Midazolam 1 MG/ML 2 ML SDV ONE (10:45)
[2021-01-06] MEDS ORDERED: Ketamine 500 mg/10 ML MDV ONE (10:46)
[2021-01-06] MEDS ORDERED: Furosemide 40 MG/4 ML VIAL IVPUSH ONE (11:14)
--- NOTE | 2021-01-06 11:31 | CR ---
Chest: Portable view of the chest was obtained. Comparison: Prior chest x-ray of 01/03/21. Increasing density within the right upper chest is seen from prior study. Lung markings are diffusely increased which are stable. Slight areas of atelectasis within both inferior lungs. Heart size is slightly enlarged. Bony structures are osteopenic. Surgical clips are noted from prior cholecystectomy. Impression: 1. Increased density within the right upper chest either due to pneumonia or changes of aspiration. 2. Mild atelectasis within both lung bases. 3. Increased central lung markings possibly due to acute or chronic pulmonary vascular congestion. Diagnostic code #3
--- NOTE | 2021-01-06 11:46 | PCM.PN ---
- General Info Date of Service: 01/06/21 Admission Dx/Problem (Free Text): Admission Diagnosis/Problem Admission Diagnosis/Problem Hip fracture requiring operative repair Subjective Update: In to see Suma is morning. She appears "groggy ". States she does not like the pain to her hip. Requiring O2 at 6 L per nasal cannula with saturations 88 to 90%. Questioning if this is to narcotics or exacerbation of congestive heart failure as patient has not been getting her Lasix the last couple of days. Portable chest x-ray radiologist impression: 1. Increased density within the right upper chest either due to pneumonia or changes of aspiration. 2. Mild atelectasis within both lung bases. 3. Increased central lung markings possibly due to acute or chronic pulmonary vascular congestion Surgery is on hold until Sunday as the surgical crew could not maintain the patient's O2 saturations above 90% prior to the procedure. Functional Status: Reports: Pain Controlled, Urinating (Catheter in place), Incentive Spirometry (1 hour while awake). Denies: Tolerating Diet (N.p.o. for surgery), Ambulating (Addressed until after the surgery) - Review of Systems General: Reports: No Symptoms HEENT: Reports: No Symptoms Pulmonary: Reports: No Symptoms. Denies: Shortness of Breath, Pleuritic Chest Pain, Cough, Wheezing Cardiovascular: Reports: No Symptoms Gastrointestinal: Reports: No Symptoms Genitourinary: Reports: Other (Blackman catheter in place) Musculoskeletal: Reports: Other (Left hip pain due to fracture) Skin: Reports: No Symptoms Neurological: Reports: No Symptoms Psychiatric: Reports: No Symptoms - Patient Data Vitals - Most Recent: Last Vital Signs Temp 98.1 F 01/06/21 07:55 Pulse 73 01/06/21 08:25 Resp 14 01/06/21 07:55 BP 133/64 01/06/21 08:23 Pulse Ox 91 L 01/06/21 09:50 Weight - Most Recent: 159 lb I&O - Last 24 Hours: Intake & Output 01/05/21 01/06/21 01/06/21 22:59 06:59 14:59 Intake Total 1015 896 Output Total 0 425 Balance 1015 471 Lab Results Last 24 Hours: Laboratory Results - last 24 hr 01/05/21 01/05/21 01/05/21 Range/Units 11:51 16:52 17:12 WBC (3.98-10.04) K/mm3 RBC (3.98-5.22) M/mm3 Hgb (11.2-15.7) gm/dl Hct (34.1-44.9) % MCV (79.4-94.8) fl MCH (25.6-32.2) pg MCHC (32.2-35.5) g/dl RDW Std Deviation (36.4-46.3) fL Plt Count (182-369) K/mm3 MPV (9.4-12.3) fl Neut % (Auto) (34.0-71.1) % Lymph % (Auto) (19.3-51.7) % [place] % (Auto) (4.7-12.5) % Eos % (Auto) (0.7-5.8) Baso % (Auto) (0.1-1.2) % Neut # (Auto) (1.56-6.13) K/mm3 Lymph # (Auto) (1.18-3.74) K/mm3 [place] # (Auto) (0.24-0.36) K/mm3 Eos # (Auto) (0.04-0.36) K/mm3 Baso # (Auto) (0.01-0.08) K/mm3 Puncture Site Rt radial ABG pH 7.40 (7.35-7.45) ABG pCO2 47.4 H (35.0-45.0) mmHg ABG pO2 66.0 L (80.0-100.0) mmHg ABG HCO3 28.7 H (22.0-26.0) meq/L ABG O2 Saturation 90.9 L (96.0-97.0) % ABG Base Excess 3.7 H (-2-2.0) Eric Test Positive O2 Delivery Device Nasal cannula Oxygen Flow Rate 4.0 FiO2 0.00 L (21.00-100.00) % Sodium (136-145) mEq/L Potassium (3.5-5.1) mEq/L Chloride (98-107) mEq/L Carbon Dioxide (21-32) mEq/L Anion Gap (5-15) BUN (7-18) mg/dL Creatinine (0.55-1.02) mg/dL Est Cr Clr Drug Dosing mL/min Estimated GFR (MDRD) (>60) mL/min BUN/Creatinine Ratio (14-18) Glucose (83-115) mg/dL POC Glucose 204 H 129 H (83-110) mg/dL Calcium (8.5-10.1) mg/dL Magnesium (1.8-2.4) mg/dl Total Bilirubin (0.2-1.0) mg/dL AST (15-37) U/L ALT (14-59) U/L Alkaline Phosphatase (46-116) U/L Total Protein (6.4-8.2) g/dl Albumin (3.4-5.0) g/dl Globulin gm/dL Albumin/Globulin Ratio (1-2) MRSA (PCR) 01/05/21 01/06/21 01/06/21 Range/Units 20:42 01:30 04:30 WBC 13.02 H (3.98-10.04) K/mm3 RBC 3.53 L (3.98-5.22) M/mm3 Hgb 10.7 L (11.2-15.7) gm/dl Hct 34.6 (34.1-44.9) % MCV 98.0 H (79.4-94.8) fl MCH 30.3 (25.6-32.2) pg MCHC 30.9 L (32.2-35.5) g/dl RDW Std Deviation 53.7 H (36.4-46.3) fL Plt Count 139 L (182-369) K/mm3 MPV 10.8 (9.4-12.3) fl Neut % (Auto) 75.6 H (34.0-71.1) % Lymph % (Auto) 14.3 L (19.3-51.7) % Churchill % (Auto) 5.7 (4.7-12.5) % Eos % (Auto) 3.6 (0.7-5.8) Baso % (Auto) 0.2 (0.1-1.2) % Neut # (Auto) 9.85 H (1.56-6.13) K/mm3 Lymph # (Auto) 1.86 (1.18-3.74) K/mm3 Churchill # (Auto) 0.74 H (0.24-0.36) K/mm3 Eos # (Auto) 0.47 H (0.04-0.36) K/mm3 Baso # (Auto) 0.02 (0.01-0.08) K/mm3 Puncture Site ABG pH (7.35-7.45) ABG pCO2 (35.0-45.0) mmHg ABG pO2 (80.0-100.0) mmHg ABG HCO3 (22.0-26.0) meq/L ABG O2 Saturation (96.0-97.0) % ABG Base Excess (-2-2.0) Eric Test O2 Delivery Device Oxygen Flow Rate FiO2 (21.00-100.00) % Sodium (136-145) mEq/L Potassium (3.5-5.1) mEq/L Chloride (98-107) mEq/L Carbon Dioxide (21-32) mEq/L Anion Gap (5-15) BUN (7-18) mg/dL Creatinine (0.55-1.02) mg/dL Est Cr Clr Drug Dosing mL/min Estimated GFR (MDRD) (>60) mL/min BUN/Creatinine Ratio (14-18) Glucose (83-115) mg/dL POC Glucose 137 H (83-110) mg/dL Calcium (8.5-10.1) mg/dL Magnesium (1.8-2.4) mg/dl Total Bilirubin (0.2-1.0) mg/dL AST (15-37) U/L ALT (14-59) U/L Alkaline Phosphatase (46-116) U/L Total Protein (6.4-8.2) g/dl Albumin (3.4-5.0) g/dl Globulin gm/dL Albumin/Globulin Ratio (1-2) MRSA (PCR) Negative 01/06/21 01/06/21 01/06/21 Range/Units 04:30 04:30 06:02 WBC (3.98-10.04) K/mm3 RBC (3.98-5.22) M/mm3 Hgb (11.2-15.7) gm/dl Hct (34.1-44.9) % MCV (79.4-94.8) fl MCH (25.6-32.2) pg MCHC (32.2-35.5) g/dl RDW Std Deviation (36.4-46.3) fL Plt Count (182-369) K/mm3 MPV (9.4-12.3) fl Neut % (Auto) (34.0-71.1) % Lymph % (Auto) (19.3-51.7) % Churchill % (Auto) (4.7-12.5) % Eos % (Auto) (0.7-5.8) Baso % (Auto) (0.1-1.2) % Neut # (Auto) (1.56-6.13) K/mm3 Lymph # (Auto) (1.18-3.74) K/mm3 Churchill # (Auto) (0.24-0.36) K/mm3 Eos # (Auto) (0.04-0.36) K/mm3 Baso # (Auto) (0.01-0.08) K/mm3 Puncture Site ABG pH (7.35-7.45) ABG pCO2 (35.0-45.0) mmHg ABG pO2 (80.0-100.0) mmHg ABG HCO3 (22.0-26.0) meq/L ABG O2 Saturation (96.0-97.0) % ABG Base Excess (-2-2.0) Eric Test O2 Delivery Device Oxygen Flow Rate FiO2 (21.00-100.00) % Sodium 143 (136-145) mEq/L Potassium 4.1 (3.5-5.1) mEq/L Chloride 106 (98-107) mEq/L Carbon Dioxide 28 (21-32) mEq/L Anion Gap 13.1 (5-15) BUN 34 H (7-18) mg/dL Creatinine 2.1 H (0.55-1.02) mg/dL Est Cr Clr Drug Dosing 13.04 mL/min Estimated GFR (MDRD) 22 (>60) mL/min BUN/Creatinine Ratio 16.2 (14-18) Glucose 120 H (83-115) mg/dL POC Glucose 135 H (83-110) mg/dL Calcium 8.5 (8.5-10.1) mg/dL Magnesium 2.1 (1.8-2.4) mg/dl Total Bilirubin 1.5 H (0.2-1.0) mg/dL AST 134 H (15-37) U/L ALT 221 H (14-59) U/L Alkaline Phosphatase 91 (46-116) U/L Total Protein 5.9 L (6.4-8.2) g/dl Albumin 2.7 L (3.4-5.0) g/dl Globulin 3.2 gm/dL Albumin/Globulin Ratio 0.8 L (1-2) MRSA (PCR) 01/06/21 Range/Units 10:51 WBC (3.98-10.04) K/mm3 RBC (3.98-5.22) M/mm3 Hgb (11.2-15.7) gm/dl Hct (34.1-44.9) % MCV (79.4-94.8) fl MCH (25.6-32.2) pg MCHC (32.2-35.5) g/dl RDW Std Deviation (36.4-46.3) fL Plt Count (182-369) K/mm3 MPV (9.4-12.3) fl Neut % (Auto) (34.0-71.1) % Lymph % (Auto) (19.3-51.7) % Churchill % (Auto) (4.7-12.5) % Eos % (Auto) (0.7-5.8) Baso % (Auto) (0.1-1.2) % Neut # (Auto) (1.56-6.13) K/mm3 Lymph # (Auto) (1.18-3.74) K/mm3 Churchill # (Auto) (0.24-0.36) K/mm3 Eos # (Auto) (0.04-0.36) K/mm3 Baso # (Auto) (0.01-0.08) K/mm3 Puncture Site ABG pH (7.35-7.45) ABG pCO2 (35.0-45.0) mmHg ABG pO2 (80.0-100.0) mmHg ABG HCO3 (22.0-26.0) meq/L ABG O2 Saturation (96.0-97.0) % ABG Base Excess (-2-2.0) Eric Test O2 Delivery Device Oxygen Flow Rate FiO2 (21.00-100.00) % Sodium (136-145) mEq/L Potassium (3.5-5.1) mEq/L Chloride (98-107) mEq/L Carbon Dioxide (21-32) mEq/L Anion Gap (5-15) BUN (7-18) mg/dL Creatinine (0.55-1.02) mg/dL Est Cr Clr Drug Dosing mL/min Estimated GFR (MDRD) (>60) mL/min BUN/Creatinine Ratio (14-18) Glucose (83-115) mg/dL POC Glucose 169 H (83-110) mg/dL Calcium (8.5-10.1) mg/dL Magnesium (1.8-2.4) mg/dl Total Bilirubin (0.2-1.0) mg/dL AST (15-37) U/L ALT (14-59) U/L Alkaline Phosphatase (46-116) U/L Total Protein (6.4-8.2) g/dl Albumin (3.4-5.0) g/dl Globulin gm/dL Albumin/Globulin Ratio (1-2) MRSA (PCR) Med Orders - Current: Current Medications Acetaminophen (Tylenol) 650 mg PO Q4H PRN PRN Reason: Fever Last Admin: 01/05/21 23:27 Dose: 650 mg Documented by: Albuterol/Ipratropium (Duoneb 3.0-0.5 Mg/3 Ml) 3 ml NEB Q4H PRN PRN Reason: Shortness Of Breath/wheezing Calcium Carbonate/Glycine (Tums) 500 mg PO Q4H PRN PRN Reason: Heartburn Cyclobenzaprine HCl (Flexeril) 10 mg PO TID PRN PRN Reason: muscle spasms Last Admin: 01/04/21 12:36 Dose: 10 mg Documented by: Docusate Sodium (Colace) 100 mg PO BID PRN PRN Reason: Constipation Famotidine (Pepcid) 20 mg PO Q48H [facility] Last Admin: 01/06/21 08:23 Dose: Not Given Documented by: Gabapentin (Neurontin) 600 mg PO BID [facility] Last Admin: 01/06/21 08:23 Dose: 600 mg Documented by: Hydralazine HCl (Apresoline) 10 mg IVPUSH Q4H PRN PRN Reason: Hypertension Hydromorphone HCl (Dilaudid) 0.5 mg IVPUSH Q4H PRN PRN Reason: Pain (severe 7-10) Last Admin: 01/06/21 08:18 Dose: 0.5 mg Documented by: Promethazine HCl 12.5 mg/ (Sodium Chloride) 50.5 mls @ 100 mls/hr IV Q6H PRN PRN Reason: Nausea/Vomiting Lactated Ringer's (Ringers, Lactated) 1,000 mls @ 75 mls/hr IV ASDIRECTED [facility] Last Admin: 01/06/21 07:37 Dose: 75 mls/hr Documented by: Insulin Glargine (Lantus) 15 unit SUBCUT DAILY [facility] Last Admin: 01/06/21 08:50 Dose: Not Given Documented by: Insulin Human Lispro (Humalog) 0 unit SUBCUT QIDACANDBED [facility]; Protocol Last Admin: 01/06/21 11:40 Dose: Not Given Documented by: Metoprolol Succinate (Toprol Xl) 50 mg PO DAILY [facility] Last Admin: 01/06/21 08:23 Dose: 50 mg Documented by: Oxycodone HCl (Oxycodone) 5 mg PO Q6H PRN PRN Reason: Pain (moderate 4-6) Last Admin: 01/06/21 01:36 Dose: 5 mg Documented by: Discontinued Medications Acetaminophen (Tylenol) 650 mg PO Q6H PRN PRN Reason: Pain (Mild 1-3)/fever Last Admin: 01/04/21 12:34 Dose: 650 mg Documented by: Bupivacaine HCl (Marcaine 0.5%) Confirm Administered Dose 30 ml .ROUTE .STK-MED ONE Stop: 01/06/21 09:56 Calcium Carbonate/Glycine (Tums) 400 mg PO Q4H PRN PRN Reason: Heartburn Famotidine (Pepcid) 20 mg PO DAILY [facility] Last Admin: 01/04/21 09:57 Dose: 20 mg Documented by: Fentanyl (Sublimaze) Confirm Administered Dose 100 mcg .ROUTE .STK-MED ONE Stop: 01/06/21 10:46 Furosemide (Lasix) 40 mg IVPUSH NOW ONE Stop: 01/03/21 21:42 Last Admin: 01/03/21 22:00 Dose: 40 mg Documented by: Furosemide (Lasix) 20 mg PO DAILY [facility] Last Admin: 01/04/21 13:04 Dose: Not Given Documented by: Furosemide (Lasix) 20 mg IVPUSH ONETIME ONE Stop: 01/04/21 18:01 Last Admin: 01/04/21 18:47 Dose: 20 mg Documented by: Furosemide (Lasix) 40 mg IVPUSH NOW ONE Stop: 01/06/21 11:15 Last Admin: 01/06/21 11:22 Dose: 40 mg Documented by: Gabapentin (Neurontin) 600 mg PO BID [facility] Last Admin: 01/04/21 08:10 Dose: 600 mg Documented by: Heparin Sodium (Porcine) (Heparin Sodium) 5,000 units SUBCUT Q8H [facility] Stop: 01/05/21 23:00 Last Admin: 01/05/21 21:18 Dose: 5,000 units Documented by: Hydromorphone HCl (Dilaudid) 0.25 mg IVPUSH ONETIME ONE Stop: 01/03/21 20:02 Last Admin: 01/03/21 20:10 Dose: 0.25 mg Documented by: Hydromorphone HCl (Dilaudid) 0.25 mg IVPUSH ONETIME ONE Stop: 01/03/21 22:22 Last Admin: 01/03/21 23:17 Dose: 0.25 mg Documented by: Sodium Chloride (Normal Saline) 1,000 mls @ 65 mls/hr IV ASDIRECTED [facility] Lactated Ringer's (Ringers, Lactated) 1,000 mls @ 50 mls/hr IV ASDIRECTED [facility] Last Admin: 01/04/21 14:18 Dose: 50 mls/hr Documented by: Lactated Ringer's (Ringers, Lactated) 1,000 mls @ 65 mls/hr IV ASDIRECTED [facility] Last Admin: 01/05/21 06:46 Dose: 65 mls/hr Documented by: Lactated Ringer's (Ringers, Lactated) 1,000 mls @ 100 mls/hr IV ASDIRECTED [facility] Stop: 01/05/21 19:29 Last Admin: 01/05/21 09:44 Dose: 100 mls/hr Documented by: Ketamine HCl (Ketalar) Confirm Administered Dose 500 mg .ROUTE .STK-MED ONE Stop: 01/06/21 10:47 Lidocaine HCl (Xylocaine 1%) 10 ml INJECT ONETIME ONE Stop: 01/03/21 18:58 Last Admin: 01/04/21 00:57 Dose: Not Given Documented by: Lidocaine/Epinephrine (Xylocaine-Mpf 2%-Epi 1:200,000) Confirm Administered Dose 20 ml .ROUTE .STK-MED ONE Stop: 01/06/21 10:13 Midazolam HCl (Versed 1 Mg/Ml) Confirm Administered Dose 2 mg .ROUTE .STK-MED ONE Stop: 01/06/21 10:46 Non-Formulary Medication (Insulin Degludec [Tresiba]) 15 unit SQ DAILY [facility] Ondansetron HCl (Zofran) 4 mg IVPUSH ONETIME ONE Stop: 01/03/21 18:48 Last Admin: 01/03/21 18:51 Dose: 4 mg Documented by: Ondansetron HCl (Zofran) Confirm Administered Dose 4 mg .ROUTE .K-MED ONE Stop: 01/03/21 19:51 Last Admin: 01/03/21 20:11 Dose: Not Given Documented by: Ondansetron HCl (Zofran) 4 mg IVPUSH ONETIME ONE Stop: 01/03/21 20:07 Last Admin: 01/03/21 20:11 Dose: 4 mg Documented by: Ropivacaine (Naropin 0.5%) Confirm Administered Dose 30 ml .ROUTE .STK-MED ONE Stop: 01/06/21 09:57 Sodium Polystyrene Sulfonate (Kayexalate) 15 gm PO ONETIME ONE Stop: 01/04/21 08:50 Last Admin: 01/04/21 09:57 Dose: 15 gm Documented by: Spironolactone (Aldactone) 50 mg PO DAILY [facility] Last Admin: 01/04/21 08:10 Dose: 50 mg Documented by: Tamsulosin HCl (Flomax) 0.4 mg PO DAILY [facility] Last Admin: 01/04/21 17:44 Dose: Not Given Documented by: - Exam Quality Assessment: Supplemental Oxygen (Liters per nasal cannula), Urine Catheter (Place due to hip fracture), DVT Prophylaxis (SCDs) General: Oriented, Lethargic HEENT: Pupils Equal, Pupils Reactive. No: Mucous Membr. Moist/[place] (Dry lips and oral mucosa) Neck: Supple Lungs: Normal Respiratory Effort, Decreased Breath Sounds, Crackles (Bilateral bases). No: Clear to Auscultation Cardiovascular: Regular Rate, Regular Rhythm GI/Abdominal Exam: Normal Bowel Sounds, Soft, Non-Tender, No Distention (Female) Exam: Deferred Back Exam: Normal Inspection, Full Range of Motion Extremities: Normal Inspection, No Pedal Edema, Normal Capillary Refill, Limited Range of Motion (Left hip due to fracture). No: Normal Range of Motion Peripheral Pulses: 1+: Dorsalis Pedis (L), Dorsalis Pedis (R), 2+: Radial (L), Radial (R) Skin: Warm, Dry, Other (Left elbow skin tear dressing is clean dry and intact) Wound/Incisions: Dressing Dry and Intact (Elbow) Neurological: No New Focal Deficit Psy/Mental Status: Alert, Normal Affect, Normal Mood Sepsis Event Note - Evaluation Sepsis Screening Result: No Definite Risk - Focused Exam Vital Signs: Vital Signs Temp Temp Pulse Resp BP Pulse Ox Pulse Ox 01/06/21 09:50 91 L 01/06/21 08:25 73 89 L 01/06/21 08:23 74 133/64 01/06/21 07:55 98.1 F 68 14 113/38 L 90 L 01/06/21 05:43 99 01/06/21 03:25 97.9 F 60 16 124/62 95 01/06/21 01:14 97.5 F 01/06/21 00:15 99 F - Problem List & Annotations (1) Acute on chronic renal failure SNOMED Code(s): 687580026 Code(s): N17.9 - ACUTE KIDNEY FAILURE, UNSPECIFIED; N18.9 - CHRONIC KIDNEY DISEASE, UNSPECIFIED Status: Acute Priority: High Current Visit: Yes Qualifiers: 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) Qualified Code(s): N17.2 - Acute kidney failure with medullary necrosis; N18.4 - Chronic kidney disease, stage 4 (severe) (2) Closed left hip fracture SNOMED Code(s): 536094769 Code(s): S72.002A - FRACTURE OF UNSP PART OF NECK OF LEFT FEMUR, INIT Status: Acute Priority: High Current Visit: Yes Qualifiers: Encounter type: initial encounter Qualified Code(s): S72.002A - Fracture of unspecified part of neck of left femur, initial encounter for closed fracture (3) Elevated ALT measurement SNOMED Code(s): 455380049 Code(s): R74.01 - ELEVATION OF LEVELS OF LIVER TRANSAMINASE LEVELS Status: Acute Priority: Medium Current Visit: Yes (4) Elevated AST (SGOT) SNOMED Code(s): 152404626 Code(s): R74.01 - ELEVATION OF LEVELS OF LIVER TRANSAMINASE LEVELS Status: Acute Priority: Medium Current Visit: Yes (5) Fall SNOMED Code(s): 6046261, 425046027 Code(s): W19.XXXA - UNSPECIFIED FALL, INITIAL ENCOUNTER Status: Acute Priority: High Current Visit: Yes Qualifiers: Encounter type: subsequent encounter Qualified Code(s): W19.XXXD - Unspecified fall, subsequent encounter (6) Hyperbilirubinemia SNOMED Code(s): 93874202 Code(s): E80.6 - OTHER DISORDERS OF BILIRUBIN METABOLISM Status: Acute Priority: Medium Current Visit: Yes (7) Hyperkalemia SNOMED Code(s): 18377041 Code(s): E87.5 - HYPERKALEMIA Status: Resolved Priority: High Current Visit: Yes (8) Afib SNOMED Code(s): 80534061 Code(s): I48.91 - UNSPECIFIED ATRIAL FIBRILLATION Status: Chronic Priority: Low Current Visit: No Qualifiers: Atrial fibrillation type: paroxysmal Qualified Code(s): I48.0 - Paroxysmal atrial fibrillation (9) Anemia SNOMED Code(s): 831442792 Code(s): D64.9 - ANEMIA, UNSPECIFIED Status: Chronic Priority: Medium Current Visit: No Onset Date: 04/30/19 Qualifiers: Anemia type: due to chronic 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) Qualified Code(s): N18.4 - Chronic kidney disease, stage 4 (severe); D63.1 - Anemia in chronic kidney disease Annotation/Comment:: anemia sec to anticoagulation with xarolto / plavix and asa asa held mild bleeding noted from hemmhroids (10) CHF (congestive heart failure), NYHA class II SNOMED Code(s): 339626058, 467486238 Code(s): I50.9 - HEART FAILURE, UNSPECIFIED Status: Chronic Priority: Medium Current Visit: No Onset Date: 05/01/19 Qualifiers: Congestive heart failure type: unspecified Qualified Code(s): I50.9 - Heart failure, unspecified (11) Chronic back pain SNOMED Code(s): 280864965 Code(s): M54.9 - DORSALGIA, UNSPECIFIED; G89.29 - OTHER CHRONIC PAIN Status: Chronic Priority: Low Current Visit: No Qualifiers: Back pain location: back pain in unspecified location Back pain laterality: unspecified Qualified Code(s): M54.9 - Dorsalgia, unspecified; G89.29 - Other chronic pain (12) Chronic constipation SNOMED Code(s): 869998485 Code(s): K59.09 - OTHER CONSTIPATION Status: Chronic Priority: Low Current Visit: No (13) DM2 (diabetes mellitus, type 2) SNOMED Code(s): 12995257 Code(s): E11.9 - TYPE 2 DIABETES MELLITUS WITHOUT COMPLICATIONS Status: Chr onic Priority: High Current Visit: No Onset Date: 05/02/19 Qualifiers: Diabetes mellitus termite treater helper insulin use: unspecified termite treater helper insulin use status Diabetes mellitus complication status: with unspecified complications (14) Depression SNOMED Code(s): 08331409 Code(s): F32.9 - MAJOR DEPRESSIVE DISORDER, SINGLE EPISODE, UNSPECIFIED Status: Chronic Priority: Low Current Visit: No Qualifiers: Depression Type: other depression Qualified Code(s): F32.89 - Other specified depressive episodes (15) HTN (hypertension) SNOMED Code(s): 71377707 Code(s): I10 - ESSENTIAL (PRIMARY) HYPERTENSION Status: Chronic Priority: Medium Current Visit: No Qualifiers: Hypertension type: unspecified Qualified Code(s): I10 - Essential (primary) hypertension (16) History of TIA (transient ischemic attack) SNOMED Code(s): 428747742 Code(s): Z86.73 - PRSNL HX OF TIA (TIA), AND CEREB INFRC W/O RESID DEFICITS Status: Chronic Priority: Low Current Visit: No (17) residential resident SNOMED Code(s): 217728009 Code(s): Z59.3 - PROBLEMS RELATED TO LIVING IN RESIDENTIAL INSTITUTION Status: Chronic Priority: Low Current Visit: No (18) Urinary retention SNOMED Code(s): 523674744 Code(s): R33.9 - RETENTION OF URINE, UNSPECIFIED Status: Chronic P riority: Low Current Visit: No - Problem List Review Problem List Initiated/Reviewed/Updated: Yes - My Orders Last 24 Hours: My Active Orders 02/11/21 11:20 PRO B-TYPE NATRIUR PEPT,BNPPRO [CHEM] Stat - Assessment Assessment:: Assessment - Day of admission 01/04/21 (admitted late 01/03/21) * 89 Yo female who presents after fall at [facility]F resulting in left hip and elbow pain * Unknown why she fell. Hit head. Skin tear on left elbow * Left leg externally rotated and shortened * 12-lead EKG shows NSR at 81 BPM with a first degree AV block. * Head CT shows air-fluid levels in right maxillary sinus and senescent change. Nothing acute * Left hip X-ray suspicious for fracture * Left elbow x-ray shows nothing acute * 4cm skin tear on left elbow with skin missing repaired with steri-strips and gauze * Left Hip CT shows acute complex proximal left femoral fracture * Predominant fracture line appears to be predominantly basocervical oblique however a fracture line extends superolaterally anteriorly transcervically. * Fracture lines involving the greater trochanter as well. * There is some angulation and overriding of the fracture fragments. * CXR shows nothing acute * Dr. Huertas, orthopedic surgeon consulted by ED - plans for surgery on 01/06/21 due to patient being on Plavix\\ * Given Dilaudid for pain and Zofran for nausea * Labs: * WBC 16.81 --> 18.22 * hemoglobin 13.6 --> 13.9 * platelet 232 --> 189 * neutrophils 13.83 --> 16.37 * INR 0.96 * sodium 143 --> 140 * potassium 4.7 --> 5.5 * anion gap 14.7 --> 17.5 * BUN 25 --> 29 * creatinine 2.1 --> 2.3 * GFR 20 ---> 20 * glucose 91 --> 267 * magnesium 2.4 * total bilirubin 0.5 --> 1.3 * AST 38 ---> 192 * ALT 32 --> 327 * alkaline phosphatase 77 --> 113 * troponin less than 0.017 * proBNP 136 --> 335 * albumin 3.6 --> 3.6 * UA negative but trace leukocyte esterase, 5-10 hyaline casts, and many bacteria noted * SARS Covid 2 RNA negative * MRSA negative * urine culture pending 01/05/21 * Continued left hip pain with movement. No pain when laying still. * Left elbow bandage noted to be saturated with drainage. Nursing will change * Up to 3 L of oxygen via nasal cannula. Has been utilizing I-S. * Renal function has been getting progressively worse. Will increase IV fluids and monitor. * Transaminitis is improving and bilirubin is trending downward. * Continue plan for surgery tomorrow. * Labs today: * WBC 14.15 * hemoglobin 12.0 * platelet 158 * neutrophils 10.94 * sodium 142 * potassium 4.1 * anion gap 13.1 * BUN 37, creatinine 2.6, GFR 17 * bilirubin 1.2 * AST 149, ALT 226, alk phos 87 * albumin 3.0 01/06/21 * Continued left hip pain with movement. No pain when laying still. * Left elbow bandage dry and intact * Up to liters of oxygen per nasal cannula. O2 saturations ranged from 88 to 90%. Has been utilizing I-S. * IV fluids stopped as patient is having worsening O2 saturations consistent with congestive heart failure. * Transaminitis is improving and bilirubin is trending downward. * Surgery postponed until Sunday * Labs today: * WBC 14.15-->13.02 * hemoglobin 12.0-->10.7 * sodium 142-->143 * potassium 4.1 * BUN 37, creatinine 2.6, GFR 17-->BUN 34, Creat 2.1 * Intake and output showed a +1536 * Portable view of the chest radiologist impression: 1. Increased density within the right upper chest either due to pneumonia or changes of aspiration. 2. Mild atelectasis within both lung bases. 3. Increased central lung markings possibly due to acute or chronic pulmonary vascular congestion * Surgery postponed until Sunday. - Plan Plan:: Closed left hip fracture Fall residential resident * Pain medications as ordered * Bedrest * Blackman until post surgical * Flexeril as ordered * PT/OT * CM/SW for discharge planning * Dr. Huertas, orthopedic surgeon consulted in ED * Planning surgery on 01/10/21 (wait due to decreasing O2 saturations) * Hold home Plavix * Heparin/SCDs for VTE * IS * Optimize for surgery * Ice pack as needed * Nursing staff to reposition every 2 hours Hyperbilirubinemia, improved Elevated AST (SGOT), improved Elevated ALT measurement, improved * Avoid tylenol * Re-check labs and monitor Acute on chronic renal failure * IV fluids discontinued due to worsening heart failure * Avoid nephrotoxic medications * Monitor labs DM2 (diabetes mellitus, type 2) * Lantus (sub for Tresiba) at home dosing * Medium scale humalog * QID AC and bedtime blood glucose checks * Consistent carbohydrate diet Anemia CHF (congestive heart failure), NYHA class II Afib HTN (hypertension) Chronic constipation Urinary retention Chronic back pain History of TIA (transient ischemic attack) Depression * Review/reconcile home medications * Telemetry * PRN stool softeners * Lasix 40 mg IV x1 * Check proBNP and procalcitonin level Resolved: Hyperkalemia Code status: DNR/DNI PCP: Dr. Winchester DVT prophylaxis: Heparin/SCDs Social: Patient resides in [facility] Disposition: Patient admitted inpatient with telemetry for surgical management of left hip fracture on 01/06/21. Postponed until January 10, 2021
--- NOTE | 2021-01-06 12:38 | PCM.PRNOTE ---
- Free Text/Narrative Note: Pain control block requested by surgeon. Patient's Dx: Left intertrochanteric hip fracture. Procedure: Left Fascia iliaca nerve block with U/S guidance Requesting surgeon: Dr. Turner Ct Risks and benefits discussed with the patient and her POA previously as part of preoperative assessment, including Rt. leg weakness x 24 hrs., block failure, groin pain. As the surgery is being postponed due to the patients general and respiratory deterioration, this block is being performed to help with pain coverage. Patient in PACU bay, monitors applied. . Time out performed. Oxygen 6L via NC. Left groin area was prepped with Chloraprep x 1 and allowed to dry. Local infiltration with 2 cc of 1% Lidocaine. The righ femoral nerve and artery were identified under ultrasound prior to needle insertion. The probe then been moved into longitudinal position and fascia iliaca covering iliopsoas muscle has been identified. 4" Stimuplex needle #20 G was inserted under US guidance. Needle penetration through fascia angelito and fascia iliaca observed. Under direct visualization of needle tip the injection of 0.5% Ropivacaine with 1:200,000 epinephrine (30mls) and 10 ml of 2% Lidocaine with 1:200,000 epinephrine in divided doses maintaining negative aspiration was completed without problems as the spread of local anesthetic been observed under fascia iliaca in cephalad direction. No local anesthetic toxicity was noted. Patient has tolerated the procedure well. Please see the attached U/S image Time: 11:58 - 12:16
[2021-01-07] MEDS ORDERED: Piperacillin/Tazobactam 4.5 GM in Sodium Chloride 0.9% 100 ML IV ONE (08:00)
[2021-01-07] MEDS: Insulin Glarg,Human.Rec.Analog 100 Unit/ML SUBCUT SCH ×2 (08:01→08:41)
[2021-01-07] MEDS ORDERED: Furosemide 40 MG/4 ML VIAL IVPUSH ONE (08:12)
--- NOTE | 2021-01-07 08:15 | PCM.PN ---
- General Info Date of Service: 01/07/21 Admission Dx/Problem (Free Text): Admission Diagnosis/Problem Admission Diagnosis/Problem Hip fracture requiring operative repair Subjective Update: In to see Suma she remains very weak but when asked how she feels she responds "with my fingers." Lung sounds have improved and she is down to 3L on oxygen. Will order echo today. Surgery scheduled for 01/10/21. She has been having minimal intake so will decrease LA and SA insulin over fears patient will bottom out. Zosyn started due to possible aspiration PNA and UTI. Functional Status: Reports: Pain Controlled, Urinating, Incentive Spirometry. Denies: Tolerating Diet (minimal intake ), Ambulating, New Symptoms - Review of Systems General: Reports: No Symptoms, Weakness, Fatigue, Malaise. Denies: Fever, Chills HEENT: Reports: No Symptoms. Denies: Headaches, Sore Throat Pulmonary: Reports: No Symptoms. Denies: Shortness of Breath, Cough, Sputum, Wh eezing Cardiovascular: Reports: No Symptoms. Denies: Chest Pain, Palpitations, Dyspnea on Exertion Gastrointestinal: Reports: No Symptoms. Denies: Abdominal Pain, Constipation, Diarrhea, Nausea, Vomiting Genitourinary: Reports: No Symptoms. Denies: Pain Musculoskeletal: Reports: Arm Pain (left elbow ), Leg Pain (left ) Skin: Reports: No Symptoms. Denies: Cyanosis Neurological: Reports: Difficulty Walking, Weakness, Gait Disturbance. Denies: Confusion Psychiatric: Reports: No Symptoms - Patient Data Vitals - Most Recent: Last Vital Signs Temp 98.8 F 01/07/21 05:31 Pulse 72 01/07/21 05:31 Resp 16 01/07/21 05:31 BP 99/54 L 01/07/21 05:31 Pulse Ox 93 L 01/07/21 06:00 Weight - Most Recent: 155 lb 4.8 oz I&O - Last 24 Hours: Intake & Output 01/06/21 01/07/21 01/07/21 22:59 06:59 14:59 Intake Total 845 325 Output Total 1300 400 Balance -455 -75 Lab Results Last 24 Hours: Laboratory Results - last 24 hr 01/06/21 01/06/21 01/06/21 Range/Units 10:51 12:28 12:38 WBC (3.98-10.04) K/mm3 RBC (3.98-5.22) M/mm3 Hgb (11.2-15.7) gm/dl Hct (34.1-44.9) % MCV (79.4-94.8) fl MCH (25.6-32.2) pg MCHC (32.2-35.5) g/dl RDW Std Deviation (36.4-46.3) fL Plt Count (182-369) K/mm3 MPV (9.4-12.3) fl Neut % (Auto) (34.0-71.1) % Lymph % (Auto) (19.3-51.7) % [place] % (Auto) (4.7-12.5) % Eos % (Auto) (0.7-5.8) Baso % (Auto) (0.1-1.2) % Neut # (Auto) (1.56-6.13) K/mm3 Lymph # (Auto) (1.18-3.74) K/mm3 [place] # (Auto) (0.24-0.36) K/mm3 Eos # (Auto) (0.04-0.36) K/mm3 Baso # (Auto) (0.01-0.08) K/mm3 Manual Slide Review Sodium (136-145) mEq/L Potassium (3.5-5.1) mEq/L Chloride (98-107) mEq/L Carbon Dioxide (21-32) mEq/L Anion Gap (5-15) BUN (7-18) mg/dL Creatinine (0.55-1.02) mg/dL Est Cr Clr Drug Dosing mL/min Estimated GFR (MDRD) (>60) mL/min BUN/Creatinine Ratio (14-18) Glucose (83-115) mg/dL POC Glucose 169 H (83-110) mg/dL Calcium (8.5-10.1) mg/dL Total Bilirubin (0.2-1.0) mg/dL AST (15-37) U/L ALT (14-59) U/L Alkaline Phosphatase (46-116) U/L NT-Pro-B Natriuret Pep 1815 H (0-450) pg/mL Total Protein (6.4-8.2) g/dl Albumin (3.4-5.0) g/dl Globulin gm/dL Albumin/Globulin Ratio (1-2) Procalcitonin 0.45 H ng/mL 01/06/21 01/06/21 01/07/21 Range/Units 17:16 21:12 06:08 WBC 14.20 H (3.98-10.04) K/mm3 RBC 3.61 L (3.98-5.22) M/mm3 Hgb 11.1 L (11.2-15.7) gm/dl Hct 34.8 (34.1-44.9) % MCV 96.4 H (79.4-94.8) fl MCH 30.7 (25.6-32.2) pg MCHC 31.9 L (32.2-35.5) g/dl RDW Std Deviation 51.1 H (36.4-46.3) fL Plt Count 144 L (182-369) K/mm3 MPV 10.9 (9.4-12.3) fl Neut % (Auto) 84.8 H (34.0-71.1) % Lymph % (Auto) 6.3 L (19.3-51.7) % [place] % (Auto) 7.0 (4.7-12.5) % Eos % (Auto) 1.0 (0.7-5.8) Baso % (Auto) 0.1 (0.1-1.2) % Neut # (Auto) 12.04 H (1.56-6.13) K/mm3 Lymph # (Auto) 0.90 L (1.18-3.74) K/mm3 [place] # (Auto) 0.99 H (0.24-0.36) K/mm3 Eos # (Auto) 0.14 (0.04-0.36) K/mm3 Baso # (Auto) 0.02 (0.01-0.08) K/mm3 Manual Slide Review Abnormal smear Sodium (136-145) mEq/L Potassium (3.5-5.1) mEq/L Chloride (98-107) mEq/L Carbon Dioxide (21-32) mEq/L Anion Gap (5-15) BUN (7-18) mg/dL Creatinine (0.55-1.02) mg/dL Est Cr Clr Drug Dosing mL/min Estimated GFR (MDRD) (>60) mL/min BUN/Creatinine Ratio (14-18) Glucose (83-115) mg/dL POC Glucose 316 H 269 H (83-110) mg/dL Calcium (8.5-10.1) mg/dL Total Bilirubin (0.2-1.0) mg/dL AST (15-37) U/L ALT (14-59) U/L Alkaline Phosphatase (46-116) U/L NT-Pro-B Natriuret Pep (0-450) pg/mL Total Protein (6.4-8.2) g/dl Albumin (3.4-5.0) g/dl Globulin gm/dL Albumin/Globulin Ratio (1-2) Procalcitonin ng/mL 01/07/21 Range/Units 06:08 WBC (3.98-10.04) K/mm3 RBC (3.98-5.22) M/mm3 Hgb (11.2-15.7) gm/dl Hct (34.1-44.9) % MCV (79.4-94.8) fl MCH (25.6-32.2) pg MCHC (32.2-35.5) g/dl RDW Std Deviation (36.4-46.3) fL Plt Count (182-369) K/mm3 MPV (9.4-12.3) fl Neut % (Auto) (34.0-71.1) % Lymph % (Auto) (19.3-51.7) % [place] % (Auto) (4.7-12.5) % Eos % (Auto) (0.7-5.8) Baso % (Auto) (0.1-1.2) % Neut # (Auto) (1.56-6.13) K/mm3 Lymph # (Auto) (1.18-3.74) K/mm3 [place] # (Auto) (0.24-0.36) K/mm3 Eos # (Auto) (0.04-0.36) K/mm3 Baso # (Auto) (0.01-0.08) K/mm3 Manual Slide Review Sodium 143 (136-145) mEq/L Potassium 3.9 (3.5-5.1) mEq/L Chloride 104 (98-107) mEq/L Carbon Dioxide 29 (21-32) mEq/L Anion Gap 13.9 (5-15) BUN 34 H (7-18) mg/dL Creatinine 1.8 H (0.55-1.02) mg/dL Est Cr Clr Drug Dosing 15.22 mL/min Estimated GFR (MDRD) 26 (>60) mL/min BUN/Creatinine Ratio 18.9 H (14-18) Glucose 208 H (83-115) mg/dL POC Glucose (83-110) mg/dL Calcium 8.9 (8.5-10.1) mg/dL Total Bilirubin 1.1 H (0.2-1.0) mg/dL AST 55 H (15-37) U/L ALT 163 H (14-59) U/L Alkaline Phosphatase 97 (46-116) U/L NT-Pro-B Natriuret Pep (0-450) pg/mL Total Protein 6.4 (6.4-8.2) g/dl Albumin 2.6 L (3.4-5.0) g/dl Globulin 3.8 gm/dL Albumin/Globulin Ratio 0.7 L (1-2) Procalcitonin ng/mL Octavio Results Last 24 Hours: Microbiology 01/03/21 19:55 Urine Culture - Preliminary Urine, Clean Catch Aerococcus Urinae Med Orders - Current: Current Medications Acetaminophen (Tylenol) 650 mg PO Q4H PRN PRN Reason: Fever Last Admin: 01/05/21 23:27 Dose: 650 mg Documented by: Albuterol/Ipratropium (Duoneb 3.0-0.5 Mg/3 Ml) 3 ml NEB Q4H PRN PRN Reason: Shortness Of Breath/wheezing Calcium Carbonate/Glycine (Tums) 500 mg PO Q4H PRN PRN Reason: Heartburn Cyclobenzaprine HCl (Flexeril) 10 mg PO TID PRN PRN Reason: muscle spasms Last Admin: 01/04/21 12:36 Dose: 10 mg Documented by: Docusate Sodium (Colace) 100 mg PO BID PRN PRN Reason: Constipation Last Admin: 01/06/21 15:57 Dose: 100 mg Documented by: Famotidine (Pepcid) 20 mg PO Q48H [facility] Last Admin: 01/06/21 08:23 Dose: Not Given Documented by: Furosemide (Lasix) 40 mg IVPUSH NOW ONE Stop: 01/07/21 08:13 Gabapentin (Neurontin) 600 mg PO BID [facility] Last Admin: 01/06/21 21:35 Dose: 600 mg Documented by: Hydralazine HCl (Apresoline) 10 mg IVPUSH Q4H PRN PRN Reason: Hypertension Hydromorphone HCl (Dilaudid) 0.5 mg IVPUSH Q4H PRN PRN Reason: Pain (severe 7-10) Last Admin: 01/06/21 08:18 Dose: 0.5 mg Documented by: Promethazine HCl 12.5 mg/ (Sodium Chloride) 50.5 mls @ 100 mls/hr IV Q6H PRN PRN Reason: Nausea/Vomiting Piperacillin Sod/Tazobactam (Sod 4.5 gm/ Sodium Chloride) 100 mls @ 200 mls/hr IV ONETIME ONE Stop: 01/07/21 08:29 Piperacillin Sod/Tazobactam (Sod 4.5 gm/ Sodium Chloride) 100 mls @ 25 mls/hr IV Q12H [facility] Insulin Glargine (Lantus) 7.5 unit SUBCUT ONETIME ONE Stop: 01/07/21 09:01 Insulin Glargine (Lantus) 7.5 unit SUBCUT DAILY [facility] Insulin Human Lispro (Humalog) 0 unit SUBCUT QIDACANDBED [facility]; Protocol Last Admin: 01/07/21 07:56 Dose: Not Given Documented by: Metoprolol Succinate (Toprol Xl) 50 mg PO DAILY [facility] Last Admin: 01/06/21 08:23 Dose: 50 mg Documented by: Oxycodone HCl (Oxycodone) 5 mg PO Q6H PRN PRN Reason: Pain (moderate 4-6) Last Admin: 01/06/21 21:48 Dose: 5 mg Documented by: Discontinued Medications Acetaminophen (Tylenol) 650 mg PO Q6H PRN PRN Reason: Pain (Mild 1-3)/fever Last Admin: 01/04/21 12:34 Dose: 650 mg Documented by: Bupivacaine HCl (Marcaine 0.5%) Confirm Administered Dose 30 ml .ROUTE .STK-MED ONE Stop: 01/06/21 09:56 Calcium Carbonate/Glycine (Tums) 400 mg PO Q4H PRN PRN Reason: Heartburn Famotidine (Pepcid) 20 mg PO DAILY [facility] Last Admin: 01/04/21 09:57 Dose: 20 mg Documented by: Fentanyl (Sublimaze) Confirm Administered Dose 100 mcg .ROUTE .STK-MED ONE Stop: 01/06/21 10:46 Furosemide (Lasix) 40 mg IVPUSH NOW ONE Stop: 01/03/21 21:42 Last Admin: 01/03/21 22:00 Dose: 40 mg Documented by: Furosemide (Lasix) 20 mg PO DAILY [facility] Last Admin: 01/04/21 13:04 Dose: Not Given Documented by: Furosemide (Lasix) 20 mg IVPUSH ONETIME ONE Stop: 01/04/21 18:01 Last Admin: 01/04/21 18:47 Dose: 20 mg Documented by: Furosemide (Lasix) 40 mg IVPUSH NOW ONE Stop: 01/06/21 11:15 Last Admin: 01/06/21 11:22 Dose: 40 mg Documented by: Gabapentin (Neurontin) 600 mg PO BID [facility] Last Admin: 01/04/21 08:10 Dose: 600 mg Documented by: Heparin Sodium (Porcine) (Heparin Sodium) 5,000 units SUBCUT Q8H [facility] Stop: 01/05/21 23:00 Last Admin: 01/05/21 21:18 Dose: 5,000 units Documented by: Hydromorphone HCl (Dilaudid) 0.25 mg IVPUSH ONETIME ONE Stop: 01/03/21 20:02 Last Admin: 01/03/21 20:10 Dose: 0.25 mg Documented by: Hydromorphone HCl (Dilaudid) 0.25 mg IVPUSH ONETIME ONE Stop: 01/03/21 22:22 Last Admin: 01/03/21 23:17 Dose: 0.25 mg Documented by: Sodium Chloride (Normal Saline) 1,000 mls @ 65 mls/hr IV ASDIRECTED [facility] Lactated Ringer's (Ringers, Lactated) 1,000 mls @ 50 mls/hr IV ASDIRECTED [facility] Last Admin: 01/04/21 14:18 Dose: 50 mls/hr Documented by: Lactated Ringer's (Ringers, Lactated) 1,000 mls @ 65 mls/hr IV ASDIRECTED [facility] Last Admin: 01/05/21 06:46 Dose: 65 mls/hr Documented by: Lactated Ringer's (Ringers, Lactated) 1,000 mls @ 100 mls/hr IV ASDIRECTED [facility] Stop: 01/05/21 19:29 Last Admin: 01/05/21 09:44 Dose: 100 mls/hr Documented by: Lactated Ringer's (Ringers, Lactated) 1,000 mls @ 75 mls/hr IV ASDIRECTED [facility] Last Admin: 01/06/21 07:37 Dose: 75 mls/hr Documented by: Piperacillin Sod/Tazobactam (Sod 4.5 gm/ Sodium Chloride) 100 mls @ 25 mls/hr IV Q8H [facility] Insulin Glargine (Lantus) 15 unit SUBCUT DAILY [facility] Last Admin: 01/07/21 08:01 Dose: Not Given Documented by: Insulin Glargine (Lantus) 15 unit SUBCUT DAILY [facility] Ketamine HCl (Ketalar) Confirm Administered Dose 500 mg .ROUTE .STK-MED ONE Stop: 01/06/21 10:47 Lidocaine HCl (Xylocaine 1%) 10 ml INJECT ONETIME ONE Stop: 01/03/21 18:58 Last Admin: 01/04/21 00:57 Dose: Not Given Documented by: Lidocaine/Epinephrine (Xylocaine-Mpf 2%-Epi 1:200,000) Confirm Administered Dose 20 ml .ROUTE .STK-MED ONE Stop: 01/06/21 10:13 Midazolam HCl (Versed 1 Mg/Ml) Confirm Administered Dose 2 mg .ROUTE .STK-MED ONE Stop: 01/06/21 10:46 Non-Formulary Medication (Insulin Degludec [Tresiba]) 15 unit SQ DAILY [facility] Ondansetron HCl (Zofran) 4 mg IVPUSH ONETIME ONE Stop: 01/03/21 18:48 Last Admin: 01/03/21 18:51 Dose: 4 mg Documented by: Ondansetron HCl (Zofran) Confirm Administered Dose 4 mg .ROUTE .STK-MED ONE Stop: 01/03/21 19:51 Last Admin: 01/03/21 20:11 Dose: Not Given Documented by: Ondansetron HCl (Zofran) 4 mg IVPUSH ONETIME ONE Stop: 01/03/21 20:07 Last Admin: 01/03/21 20:11 Dose: 4 mg Documented by: Ropivacaine (Naropin 0.5%) Confirm Administered Dose 30 ml .ROUTE .STK-MED ONE Stop: 01/06/21 09:57 Sodium Polystyrene Sulfonate (Kayexalate) 15 gm PO ONETIME ONE Stop: 01/04/21 08:50 Last Admin: 01/04/21 09:57 Dose: 15 gm Documented by: Spironolactone (Aldactone) 50 mg PO DAILY [facility] Last Admin: 01/04/21 08:10 Dose: 50 mg Documented by: Tamsulosin HCl (Flomax) 0.4 mg PO DAILY [facility] Last Admin: 01/04/21 17:44 Dose: Not Given Documented by: - Exam Quality Assessment: Supplemental Oxygen (3L), Urine Catheter, DVT Prophylaxis General: Oriented, Cooperative, No Acute Distress, Lethargic (mildly ) HEENT: Pupils Equal, Pupils Reactive, Mucous Membr. Moist/[place] Neck: Supple, Trachea Midline Lungs: Normal Respiratory Effort, Decreased Breath Sounds, Crackles Cardiovascular: Regular Rate, Regular Rhythm GI/Abdominal Exam: Normal Bowel Sounds, Soft, Non-Tender, No Distention (Female) Exam: Deferred Extremities: Normal Inspection, Normal Range of Motion, Non-Tender, Normal Capillary Refill, Pedal Edema (1+) Skin: Warm, Dry, Intact Neurological: No New Focal Deficit Sepsis Event Note - Evaluation Sepsis Screening Result: No Definite Risk - Focused Exam Vital Signs: Vital Signs Temp Pulse Resp BP Pulse Ox Pulse Ox 01/07/21 06:00 93 L 01/07/21 05:50 94 L 01/07/21 05:31 98.8 F 72 16 99/54 L 92 L 01/07/21 04:22 93 L 01/07/21 00:25 97.7 F 64 16 116/75 94 L 01/06/21 22:00 94 L 01/06/21 21:20 90 L - Problem List & Annotations (1) Closed left hip fracture SNOMED Code(s): 293976695 Code(s): S72.002A - FRACTURE OF UNSP PART OF NECK OF LEFT FEMUR, INIT Status: Acute Priority: High Current Visit: Yes Qualifiers: Encounter type: initial encounter Qualified Code(s): S72.002A - Fracture of unspecified part of neck of left femur, initial encounter for closed fracture (2) Anemia SNOMED Code(s): 399792467 Code(s): D64.9 - ANEMIA, UNSPECIFIED Status: Chronic Priority: Medium Current Visit: No Onset Date: 04/30/19 Qualifiers: Anemia type: due to chronic 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) Qualified Code(s): N18.4 - Chronic kidney disease, stage 4 (severe); D63.1 - Anemia in chronic kidney disease Annotation/Comment:: anemia sec to anticoagulation with xarolto / plavix and asa asa held mild bleeding noted from hemmhroids (3) CHF (congestive heart failure), NYHA class II SNOMED Code(s): 156695134, 810294916 Code(s): I50.9 - HEART FAILURE, UNSPECIFIED Status: Chronic Priority: Medium Current Visit: No Onset Date: 05/01/19 Qualifiers: Congestive heart failure type: unspecified Qualified Code(s): I50.9 - Heart failure, unspecified (4) Fall SNOMED Code(s): 1105976, 300059468 Code(s): W19.XXXA - UNSPECIFIED FALL, INITIAL ENCOUNTER Status: Acute Priority: High Current Visit: Yes Qualifiers: Encounter type: subsequent encounter Qualified Code(s): W19.XXXD - Unspecified fall, subsequent encounter (5) DM2 (diabetes mellitus, type 2) SNOMED Code(s): 76766872 Code(s): E11.9 - TYPE 2 DIABETES MELLITUS WITHOUT COMPLICATIONS Status: Chronic Priority: High Current Visit: No Onset Date: 05/02/19 Qualifiers: Diabetes mellitus buttermaker continuous churn insulin use: unspecified buttermaker continuous churn insulin use status Diabetes mellitus complication status: with unspecified complications (6) Afib SNOMED Code(s): 35468048 Code(s): I48.91 - UNSPECIFIED ATRIAL FIBRILLATION Status: Chronic Priority: Low Current Visit: No Qualifiers: Atrial fibrillation type: paroxysmal Qualified Code(s): I48.0 - Paroxysmal atrial fibrillation (7) HTN (hypertension) SNOMED Code(s): 03473260 Code(s): I10 - ESSENTIAL (PRIMARY) HYPERTENSION Status: Chronic Priority: Medium Current Visit: No Qualifiers: Hypertension type: unspecified Qualified Code(s): I10 - Essential (primary) hypertension (8) Chronic constipation SNOMED Code(s): 407924478 Code(s): K59.09 - OTHER CONSTIPATION Status: Chronic Priority: Low Current Visit: No (9) Urinary retention SNOMED Code(s): 994308099 Code(s): R33.9 - RETENTION OF URINE, UNSPECIFIED Status: Chronic Priority: Low Current Visit: No (10) Chronic back pain SNOMED Code(s): 350015530 Code(s): M54.9 - DORSALGIA, UNSPECIFIED; G89.29 - OTHER CHRONIC PAIN Status: Chronic Priority: Low Current Visit: No Qualifiers: Back pain location: back pain in unspecified location Back pain laterality: unspecified Qualified Code(s): M54.9 - Dorsalgia, unspecified; G89.29 - Other chronic pain (11) History of TIA (transient ischemic attack) SNOMED Code(s): 955088961 Code(s): Z86.73 - PRSNL HX OF TIA (TIA), AND CEREB INFRC W/O RESID DEFICITS Status: Chronic Priority: Low Current Visit: No (12) Depression SNOMED Code(s): 61712057 Code(s): F32.9 - MAJOR DEPRESSIVE DISORDER, SINGLE EPISODE, UNSPECIFIED Status: Chronic Priority: Low Current Visit: No Qualifiers: Depression Type: other depression Qualified Code(s): F32.89 - Other specified depressive episodes (13) [facility] resident SNOMED Code(s): 538343060 Code(s): Z59.3 - PROBLEMS RELATED TO LIVING IN RESIDENTIAL INSTITUTION Status: Chronic Priority: Low Current Visit: No (14) Hyperbilirubinemia SNOMED Code(s): 55033516 Code(s): E80.6 - OTHER DISORDERS OF BILIRUBIN METABOLISM Status: Acute Priority: Medium Current Visit: Yes (15) Elevated AST (SGOT) SNOMED Code(s): 532708660 Code(s): R74.01 - ELEVATION OF LEVELS OF LIVER TRANSAMINASE LEVELS Status: Acute Priority: Medium Current Visit: Yes (16) Elevated ALT measurement SNOMED Code(s): 901329988 Code(s): R74.01 - ELEVATION OF LEVELS OF LIVER TRANSAMINASE LEVELS Status: Acute Priority: Medium Current Visit: Yes (17) Acute on chronic renal failure SNOMED Code(s): 244572623 Code(s): N17.9 - ACUTE KIDNEY FAILURE, UNSPECIFIED; N18.9 - CHRONIC KIDNEY DISEASE, UNSPECIFIED Status: Acute Priority: High Current Visit: Yes Qualifiers: 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) Qualified Code(s): N17.2 - Acute kidney failure with medullary necrosis; N18.4 - Chronic kidney disease, stage 4 (severe) (18) Hyperkalemia SNOMED Code(s): 15815372 Code(s): E87.5 - HYPERKALEMIA Status: Resolved Priority: High Current Visit: Yes (19) Fluid overload SNOMED Code(s): 69349938 Code(s): E87.70 - FLUID OVERLOAD, UNSPECIFIED Status: Acute Priority: High Current Visit: Yes Qualifiers: Hypervolemia type: unspecified Qualified Code(s): E87.70 - Fluid overload, unspecified (20) Acute respiratory failure SNOMED Code(s): 90225928 Code(s): J96.00 - ACUTE RESPIRATORY FAILURE, UNSP W HYPOXIA OR HYPERCAPNIA Status: Acute Current Visit: Yes (21) Elevated brain natriuretic peptide (BNP) level SNOMED Code(s): 945000146, 635854564 Code(s): R79.89 - OTHER SPECIFIED ABNORMAL FINDINGS OF BLOOD CHEMISTRY Status: Acute Current Visit: Yes (22) Pneumonia SNOMED Code(s): 684244461 Code(s): J18.9 - PNEUMONIA, UNSPECIFIED ORGANISM Status: Acute Priority: High Current Visit: Yes Qualifiers: Pneumonia type: due to unspecified organism Laterality: right Lung location: upper lobe of lung Qualified Code(s): J18.9 - Pneumonia, unspecified organism Annotation/Comment:: very slow improvmetna nd continued atelectasis and pleural effusion left (23) UTI (urinary tract infection) SNOMED Code(s): 45686706 Code(s): N39.0 - URINARY TRACT INFECTION, SITE NOT SPECIFIED Status: Acute Priority: High Current Visit: Yes Qualifiers: Urinary tract infection type: acute cystitis Hematuria presence: without hematuria Qualified Code(s): N30.00 - Acute cystitis without hematuria - Problem List Review Problem List Initiated/Reviewed/Updated: Yes - My Orders Last 24 Hours: My Active Orders 01/06/21 09:00 Famotidine [Pepcid] 20 mg PO Q48H 01/07/21 06:08 MAGNESIUM [CHEM] AM 02/12/21 08:00 Piperacillin/Tazobactam [Piperacil-Tazobact] 4.5 gm Sodium Chloride 0.9% [Normal Saline] 100 ml IV ONETIME 01/07/21 08:12 Furosemide [Lasix] 40 mg IVPUSH NOW ONE 01/07/21 09:00 Insulin Glarg,Human.Rec.Analog [LantUS] 7.5 unit SUBCUT DAILY Insulin Glarg,Human.Rec.Analog [LantUS] 7.5 unit SUBCUT ONETIME ONE 01/07/21 20:00 Piperacillin/Tazobactam [Piperacil-Tazobact] 4.5 gm Sodium Chloride 0.9% [Normal Saline] 100 ml IV Q12H 01/08/21 05:11 MAGNESIUM [CHEM] AM - Assessment Assessment:: Assessment - Day of admission 01/04/21 (admitted late 01/03/21) * 89 Yo female who presents after fall at [facility] resulting in left hip and elbow pain * Unknown why she fell. Hit head. Skin tear on left elbow * Left leg externally rotated and shortened * 12-lead EKG shows NSR at 81 BPM with a first degree AV block. * Head CT shows air-fluid levels in right maxillary sinus and senescent change. Nothing acute * Left hip X-ray suspicious for fracture * Left elbow x-ray shows nothing acute * 4cm skin tear on left elbow with skin missing repaired with steri-strips and gauze * Left Hip CT shows acute complex proximal left femoral fracture * Predominant fracture line appears to be predominantly basocervical oblique however a fracture line extends superolaterally anteriorly transcervically. * Fracture lines involving the greater trochanter as well. * There is some angulation and overriding of the fracture fragments. * CXR shows nothing acute * Dr. Huertas, orthopedic surgeon consulted by ED - plans for surgery on 01/06/21 due to patient being on Plavix\\ * Given Dilaudid for pain and Zofran for nausea * Labs: * WBC 16.81 --> 18.22 * hemoglobin 13.6 --> 13.9 * platelet 232 --> 189 * neutrophils 13.83 --> 16.37 * INR 0.96 * sodium 143 --> 140 * potassium 4.7 --> 5.5 * anion gap 14.7 --> 17.5 * BUN 25 --> 29 * creatinine 2.1 --> 2.3 * GFR 20 ---> 20 * glucose 91 --> 267 * magnesium 2.4 * total bilirubin 0.5 --> 1.3 * AST 38 ---> 192 * ALT 32 --> 327 * alkaline phosphatase 77 --> 113 * troponin less than 0.017 * proBNP 136 --> 335 * albumin 3.6 --> 3.6 * UA negative but trace leukocyte esterase, 5-10 hyaline casts, and many bacteria noted * SARS Covid 2 RNA negative * MRSA negative * urine culture pending 01/05/21 * Continued left hip pain with movement. No pain when laying still. * Left elbow bandage noted to be saturated with drainage. Nursing will change * Up to 3 L of oxygen via nasal cannula. Has been utilizing I-S. * Renal function has been getting progressively worse. Will increase IV fluids and monitor. * Transaminitis is improving and bilirubin is trending downward. * Continue plan for surgery tomorrow. * Labs today: * WBC 14.15 * hemoglobin 12.0 * platelet 158 * neutrophils 10.94 * sodium 142 * potassium 4.1 * anion gap 13.1 * BUN 37, creatinine 2.6, GFR 17 * bilirubin 1.2 * AST 149, ALT 226, alk phos 87 * albumin 3.0 01/06/21 * Continued left hip pain with movement. No pain when laying still. * Left elbow bandage dry and intact * Up to 6 liters of oxygen per nasal cannula. O2 saturations ranged from 88 to 90%. Has been utilizing I-S. * IV fluids stopped as patient is having worsening O2 saturations consistent with congestive heart failure. * Transaminitis is improving and bilirubin is trending downward. * Surgery postponed until Sunday * Labs today: * WBC 14.15-->13.02 * hemoglobin 12.0-->10.7 * sodium 142-->143 * potassium 4.1 * BUN 37, creatinine 2.6, GFR 17-->BUN 34, Creat 2.1 * Intake and output showed a +1536 * Portable view of the chest radiologist impression: 1. Increased density within the right upper chest either due to pneumonia or changes of aspiration. 2. Mild atelectasis within both lung bases. 3. Increased central lung markings possibly due to acute or chronic pulmonary vascular congestion * Surgery postponed until Sunday. 01/07/21 * Continues to have left hip pain with movement 2/2 fracture * Planned surgical fixation on 01/10/21 * Down to 3L via NC * UTI growing >100 CFUs aerococcus urinae * Started zosyn due to questionable aspiration PNA and UTI * Given 40mg IVP lasix today * Echo ordered due to history of prior CHF - Diastolic HF noted from 12/14 * Labs: * WBC 14.20 * Hgb 11.1 * Potassium 3.9 * BUN 34, Creatinine 1.8, GFR 36 - Plan Plan:: Closed left hip fracture [facility] resident * Pain medications as ordered * Bedrest * Blackman until post surgical * Flexeril as ordered * PT/OT * CM/SW for discharge planning * Dr. Huertas, orthopedic surgeon consulted in ED * Planning surgery on 01/10/21 (wait due to decreasing O2 saturations) * Hold home Plavix * Heparin/SCDs for VTE * IS * Optimize for surgery * Ice pack as needed * Nursing staff to reposition every 2 hours Acute respiratory failure CHF exacerbation CHF (congestive heart failure), NYHA class II Elevated Pro-BNP Fluid overload Questionable pneumonia * Review old echo * New echocardiogram ordered * Lasix 40mg x1 IVP today * Stop fluids - renal function improved UTI * Zosyn Q8 HR Hyperbilirubinemia, improved Elevated AST (SGOT), improved Elevated ALT measurement, improved * Avoid tylenol * Re-check labs and monitor Acute on chronic renal failure * IV fluids discontinued due to worsening heart failure * Avoid nephrotoxic medications * Monitor labs DM2 (diabetes mellitus, type 2) * Lantus (sub for Tresiba) - will cut dose by hald due to minimal PO intake * Low dose scale humalog (down from medium dose due to poor PO intake) * QID AC and bedtime blood glucose checks * Consistent carbohydrate diet Anemia Afib HTN (hypertension) Chronic constipation Urinary retention Chronic back pain History of TIA (transient ischemic attack) Depression * Review/reconcile home medications * Telemetry * PRN stool softeners Resolved: Hyperkalemia Code status: DNR/DNI PCP: Dr. Winchester DVT prophylaxis: Heparin/SCDs Social: Patient resides in [facility] Disposition: Patient admitted inpatient with telemetry for surgical management of left hip fracture on 01/06/21. Postponed until January 10, 2021 LOS >96 hrs due to delay in surgery for CHF/PNA/UTI treatment.
[2021-01-07] MEDS: Gabapentin 600 MG Tab PO SCH ×2 (08:17→21:15)
[2021-01-07] MEDS: Metoprolol Succinate 50 MG Tab.ER PO SCH (08:17)
[2021-01-07] MEDS: oxyCODONE 5 MG Tab PO PRN (08:18)
[2021-01-07] MEDS: Acetaminophen 325 MG Tab PO PRN (08:29)
[2021-01-07] MEDS ORDERED: Insulin Glarg,Human.Rec.Analog 100 Unit/ML SUBCUT ONE (09:00)
[2021-01-07] MEDS: Heparin Sodium 5,000 Units/ML Vial SUBCUT SCH ×2 (12:51→18:30)
[2021-01-07] MEDS ORDERED: Magnesium Hydroxide 400 MG/5 ML Susp 30 ML Cup PO PRN (12:59)
[2021-01-07] MEDS ORDERED: Piperacillin/Tazobactam 4.5 GM in Sodium Chloride 0.9% 100 ML IV SCH (16:00)
[2021-01-07] MEDS: Piperacillin/Tazobactam 4.5 GM in Sodium Chloride 0.9% 100 ML IV SCH (21:15)
[2021-01-07] MEDS: Docusate Sodium 100 MG Cap PO SCH (21:15)
[2021-01-08] MEDS: Heparin Sodium 5,000 Units/ML Vial SUBCUT SCH ×3 (02:36→20:11)
[2021-01-08] MEDS: oxyCODONE 5 MG Tab PO PRN (06:56)
[2021-01-08] MEDS ORDERED: Insulin Glarg,Human.Rec.Analog 100 Unit/ML SUBCUT SCH (09:00)
[2021-01-08] MEDS ORDERED: Furosemide 40 MG Tab PO SCH (09:00)
[2021-01-08] MEDS: Piperacillin/Tazobactam 4.5 GM in Sodium Chloride 0.9% 100 ML IV SCH ×2 (09:04→20:11)
[2021-01-08] MEDS: Gabapentin 600 MG Tab PO SCH (09:04)
[2021-01-08] MEDS: Metoprolol Succinate 50 MG Tab.ER PO SCH (09:05)
[2021-01-08] MEDS: Docusate Sodium 100 MG Cap PO SCH ×2 (09:05→20:11)
[2021-01-08] MEDS: Insulin Glarg,Human.Rec.Analog 100 Unit/ML SUBCUT SCH ×2 (09:06→22:26)
[2021-01-08] MEDS: Famotidine 20 MG Tab PO SCH (09:08)
--- NOTE | 2021-01-08 11:05 | PCM.PN ---
- General Info Date of Service: 01/08/21 Admission Dx/Problem (Free Text): Admission Diagnosis/Problem Admission Diagnosis/Problem Hip fracture requiring operative repair Subjective Update: No significant overnight or acute issues. She looks somnolent and not eating m uch. She had a choking spell yesterday and now on special diet with mechanical soft. Her O2 requirement went up to 4L from 3L NC. She is afebrile and her WBC is down to 11.50. Her Na is slightly up at 146. Her BS overall is not well controlled. Functional Status: Reports: Pain Controlled, Urinating. Denies: New Symptoms - Review of Systems General: Denies: Fever, Chills HEENT: Denies: No Symptoms Pulmonary: Denies: Shortness of Breath Cardiovascular: Denies: Chest Pain Gastrointestinal: Reports: Decreased Appetite. Denies: Abdominal Pain, Nausea, Vomiting Genitourinary: Reports: No Symptoms Musculoskeletal: Reports: No Symptoms Skin: Denies: Rash Neurological: Reports: Difficulty Walking, Weakness, Gait Disturbance Psychiatric: Denies: Depression, Anxiety - Patient Data Vitals - Most Recent: Last Vital Signs Temp 36.4 C 01/08/21 05:31 Pulse 61 01/08/21 09:05 Resp 18 01/08/21 05:31 BP 155/58 H 01/08/21 09:05 Pulse Ox 95 01/08/21 10:37 Weight - Most Recent: 70.851 kg I&O - Last 24 Hours: Intake & Output 01/07/21 01/08/21 01/08/21 22:59 06:59 14:59 Intake Total 1020 300 Output Total 750 800 Balance 270 -500 Lab Results Last 24 Hours: Laboratory Results - last 24 hr 01/07/21 01/07/21 01/08/21 Range/Units 10:47 16:56 05:19 WBC 11.50 H (3.98-10.04) K/mm3 RBC 3.72 L (3.98-5.22) M/mm3 Hgb 11.3 (11.2-15.7) gm/dl Hct 36.0 (34.1-44.9) % MCV 96.8 H (79.4-94.8) fl MCH 30.4 (25.6-32.2) pg MCHC 31.4 L (32.2-35.5) g/dl RDW Std Deviation 51.2 H (36.4-46.3) fL Plt Count 164 L (182-369) K/mm3 MPV 11.4 (9.4-12.3) fl Neut % (Auto) 81.1 H (34.0-71.1) % Lymph % (Auto) 9.9 L (19.3-51.7) % [place] % (Auto) 7.0 (4.7-12.5) % Eos % (Auto) 1.0 (0.7-5.8) Baso % (Auto) 0.3 (0.1-1.2) % Neut # (Auto) 9.33 H (1.56-6.13) K/mm3 Lymph # (Auto) 1.14 L (1.18-3.74) K/mm3 [place] # (Auto) 0.80 H (0.24-0.36) K/mm3 Eos # (Auto) 0.12 (0.04-0.36) K/mm3 Baso # (Auto) 0.03 (0.01-0.08) K/mm3 Manual Slide Review Abnormal smear Sodium (136-145) mEq/L Potassium (3.5-5.1) mEq/L Chloride (98-107) mEq/L Carbon Dioxide (21-32) mEq/L Anion Gap (5-15) BUN (7-18) mg/dL Creatinine (0.55-1.02) mg/dL Est Cr Clr Drug Dosing mL/min Estimated GFR (MDRD) (>60) mL/min BUN/Creatinine Ratio (14-18) Glucose (83-115) mg/dL POC Glucose 286 H 354 H (83-110) mg/dL Calcium (8.5-10.1) mg/dL Magnesium (1.8-2.4) mg/dl Total Bilirubin (0.2-1.0) mg/dL AST (15-37) U/L ALT (14-59) U/L Alkaline Phosphatase (46-116) U/L Total Protein (6.4-8.2) g/dl Albumin (3.4-5.0) g/dl Globulin gm/dL Albumin/Globulin Ratio (1-2) 02/13/21 02/13/21 02/13/21 Range/Units 05:19 05:19 06:32 WBC (3.98-10.04) K/mm3 RBC (3.98-5.22) M/mm3 Hgb (11.2-15.7) gm/dl Hct (34.1-44.9) % MCV (79.4-94.8) fl MCH (25.6-32.2) pg MCHC (32.2-35.5) g/dl RDW Std Deviation (36.4-46.3) fL Plt Count (182-369) K/mm3 MPV (9.4-12.3) fl Neut % (Auto) (34.0-71.1) % Lymph % (Auto) (19.3-51.7) % [place] % (Auto) (4.7-12.5) % Eos % (Auto) (0.7-5.8) Baso % (Auto) (0.1-1.2) % Neut # (Auto) (1.56-6.13) K/mm3 Lymph # (Auto) (1.18-3.74) K/mm3 [place] # (Auto) (0.24-0.36) K/mm3 Eos # (Auto) (0.04-0.36) K/mm3 Baso # (Auto) (0.01-0.08) K/mm3 Manual Slide Review Sodium 146 H (136-145) mEq/L Potassium 3.9 (3.5-5.1) mEq/L Chloride 105 (98-107) mEq/L Carbon Dioxide 33 H (21-32) mEq/L Anion Gap 11.9 (5-15) BUN 37 H (7-18) mg/dL Creatinine 2.0 H (0.55-1.02) mg/dL Est Cr Clr Drug Dosing 13.70 mL/min Estimated GFR (MDRD) 23 (>60) mL/min BUN/Creatinine Ratio 18.5 H (14-18) Glucose 321 H (83-115) mg/dL POC Glucose 324 H (83-110) mg/dL Calcium 9.2 (8.5-10.1) mg/dL Magnesium 2.3 (1.8-2.4) mg/dl Total Bilirubin 0.8 (0.2-1.0) mg/dL AST 27 (15-37) U/L ALT 112 H (14-59) U/L Alkaline Phosphatase 94 (46-116) U/L Total Protein 6.8 (6.4-8.2) g/dl Albumin 2.6 L (3.4-5.0) g/dl Globulin 4.2 gm/dL Albumin/Globulin Ratio 0.6 L (1-2) Octavio Results Last 24 Hours: Microbiology 01/03/21 19:55 Urine Culture - Final Urine, Clean Catch Aerococcus Urinae Med Orders - Current: Current Medications Acetaminophen (Tylenol) 650 mg PO Q4H PRN PRN Reason: Fever Last Admin: 01/07/21 08:29 Dose: 650 mg Documented by: Albuterol/Ipratropium (Duoneb 3.0-0.5 Mg/3 Ml) 3 ml NEB Q4H PRN PRN Reason: Shortness Of Breath/wheezing Calcium Carbonate/Glycine (Tums) 500 mg PO Q4H PRN PRN Reason: Heartburn Cyclobenzaprine HCl (Flexeril) 10 mg PO TID PRN PRN Reason: muscle spasms Last Admin: 01/04/21 12:36 Dose: 10 mg Documented by: Docusate Sodium (Colace) 100 mg PO BID [facility] Last Admin: 01/08/21 09:05 Dose: 100 mg Documented by: Famotidine (Pepcid) 20 mg PO Q48H [facility] Last Admin: 01/08/21 09:08 Dose: 20 mg Documented by: Furosemide (Lasix) 40 mg PO DAILY [facility] Last Admin: 01/08/21 09:04 Dose: 40 mg Documented by: Gabapentin (Neurontin) 600 mg PO BID [facility] Last Admin: 01/08/21 09:04 Dose: 600 mg Documented by: Heparin Sodium (Porcine) (Heparin Sodium) 5,000 units SUBCUT Q8H [facility] Last Admin: 01/08/21 02:36 Dose: 5,000 units Documented by: Hydralazine HCl (Apresoline) 10 mg IVPUSH Q4H PRN PRN Reason: Hypertension Hydromorphone HCl (Dilaudid) 0.5 mg IVPUSH Q4H PRN PRN Reason: Pain (severe 7-10) Last Admin: 01/06/21 08:18 Dose: 0.5 mg Documented by: Promethazine HCl 12.5 mg/ (Sodium Chloride) 50.5 mls @ 100 mls/hr IV Q6H PRN PRN Reason: Nausea/Vomiting Piperacillin Sod/Tazobactam (Sod 4.5 gm/ Sodium Chloride) 100 mls @ 25 mls/hr IV Q12H [facility] Last Admin: 01/08/21 09:04 Dose: 25 mls/hr Documented by: Insulin Glargine (Lantus) 7.5 unit SUBCUT DAILY [facility] Last Admin: 01/08/21 09:06 Dose: 7.5 units Documented by: Insulin Human Lispro (Humalog) 0 unit SUBCUT QIDACANDBED [facility]; Protocol Last Admin: 01/08/21 09:06 Dose: 4 units Documented by: Magnesium Hydroxide (Milk Of Magnesia) 30 ml PO DAILY PRN PRN Reason: Constipation Last Admin: 01/07/21 16:09 Dose: 30 ml Documented by: Metoprolol Succinate (Toprol Xl) 50 mg PO DAILY [facility] Last Admin: 01/08/21 09:05 Dose: 50 mg Documented by: Oxycodone HCl (Oxycodone) 5 mg PO Q6H PRN PRN Reason: Pain (moderate 4-6) Last Admin: 01/08/21 06:56 Dose: 5 mg Documented by: Discontinued Medications Acetaminophen (Tylenol) 650 mg PO Q6H PRN PRN Reason: Pain (Mild 1-3)/fever Last Admin: 01/04/21 12:34 Dose: 650 mg Documented by: Bupivacaine HCl (Marcaine 0.5%) Confirm Administered Dose 30 ml .ROUTE .STK-MED ONE Stop: 01/06/21 09:56 Calcium Carbonate/Glycine (Tums) 400 mg PO Q4H PRN PRN Reason: Heartburn Docusate Sodium (Colace) 100 mg PO BID PRN PRN Reason: Constipation Last Admin: 01/06/21 15:57 Dose: 100 mg Documented by: Famotidine (Pepcid) 20 mg PO DAILY [facility] Last Admin: 01/04/21 09:57 Dose: 20 mg Documented by: Fentanyl (Sublimaze) Confirm Administered Dose 100 mcg .ROUTE .STK-MED ONE Stop: 01/06/21 10:46 Furosemide (Lasix) 40 mg IVPUSH NOW ONE Stop: 01/03/21 21:42 Last Admin: 01/03/21 22:00 Dose: 40 mg Documented by: Furosemide (Lasix) 20 mg PO DAILY [facility] Last Admin: 01/04/21 13:04 Dose: Not Given Documented by: Furosemide (Lasix) 20 mg IVPUSH ONETIME ONE Stop: 01/04/21 18:01 Last Admin: 01/04/21 18:47 Dose: 20 mg Documented by: Furosemide (Lasix) 40 mg IVPUSH NOW ONE Stop: 01/06/21 11:15 Last Admin: 01/06/21 11:22 Dose: 40 mg Documented by: Furosemide (Lasix) 40 mg IVPUSH NOW ONE Stop: 01/07/21 08:13 Last Admin: 01/07/21 08:29 Dose: 40 mg Documented by: Gabapentin (Neurontin) 600 mg PO BID [facility] Last Admin: 01/04/21 08:10 Dose: 600 mg Documented by: Heparin Sodium (Porcine) (Heparin Sodium) 5,000 units SUBCUT Q8H [facility] Stop: 01/05/21 23:00 Last Admin: 01/05/21 21:18 Dose: 5,000 units Documented by: Hydromorphone HCl (Dilaudid) 0.25 mg IVPUSH ONETIME ONE Stop: 01/03/21 20:02 Last Admin: 01/03/21 20:10 Dose: 0.25 mg Documented by: Hydromorphone HCl (Dilaudid) 0.25 mg IVPUSH ONETIME ONE Stop: 01/03/21 22:22 Last Admin: 01/03/21 23:17 Dose: 0.25 mg Documented by: Sodium Chloride (Normal Saline) 1,000 mls @ 65 mls/hr IV ASDIRECTED [facility] Lactated Ringer's (Ringers, Lactated) 1,000 mls @ 50 mls/hr IV ASDIRECTED [facility] Last Admin: 01/04/21 14:18 Dose: 50 mls/hr Documented by: Lactated Ringer's (Ringers, Lactated) 1,000 mls @ 65 mls/hr IV ASDIRECTED [facility] Last Admin: 01/05/21 06:46 Dose: 65 mls/hr Documented by: Lactated Ringer's (Ringers, Lactated) 1,000 mls @ 100 mls/hr IV ASDIRECTED [facility] Stop: 01/05/21 19:29 Last Admin: 01/05/21 09:44 Dose: 100 mls/hr Documented by: Lactated Ringer's (Ringers, Lactated) 1,000 mls @ 75 mls/hr IV ASDIRECTED [facility] Last Admin: 01/06/21 07:37 Dose: 75 mls/hr Documented by: Piperacillin Sod/Tazobactam (Sod 4.5 gm/ Sodium Chloride) 100 mls @ 25 mls/hr IV Q8H [facility] Piperacillin Sod/Tazobactam (Sod 4.5 gm/ Sodium Chloride) 100 mls @ 200 mls/hr IV ONETIME ONE Stop: 01/07/21 08:29 Last Admin: 01/07/21 08:35 Dose: 200 mls/hr Documented by: Insulin Glargine (Lantus) 15 unit SUBCUT DAILY [facility] Last Admin: 01/07/21 08:01 Dose: Not Given Documented by: Insulin Glargine (Lantus) 7.5 unit SUBCUT ONETIME ONE Stop: 01/07/21 09:01 Last Admin: 01/07/21 08:16 Dose: 7.5 units Documented by: Insulin Glargine (Lantus) 15 unit SUBCUT DAILY [facility] Ketamine HCl (Ketalar) Confirm Administered Dose 500 mg .ROUTE .STK-MED ONE Stop: 01/06/21 10:47 Lidocaine HCl (Xylocaine 1%) 10 ml INJECT ONETIME ONE Stop: 01/03/21 18:58 Last Admin: 01/04/21 00:57 Dose: Not Given Documented by: Lidocaine/Epinephrine (Xylocaine-Mpf 2%-Epi 1:200,000) Confirm Administered Dose 20 ml .ROUTE .STK-MED ONE Stop: 01/06/21 10:13 Midazolam HCl (Versed 1 Mg/Ml) Confirm Administered Dose 2 mg .ROUTE .STK-MED ONE Stop: 01/06/21 10:46 Non-Formulary Medication (Insulin Degludec [Tresiba]) 15 unit SQ DAILY [facility] Ondansetron HCl (Zofran) 4 mg IVPUSH ONETIME ONE Stop: 01/03/21 18:48 Last Admin: 01/03/21 18:51 Dose: 4 mg Documented by: Ondansetron HCl (Zofran) Confirm Administered Dose 4 mg .ROUTE .STK-MED ONE Stop: 01/03/21 19:51 Last Admin: 01/03/21 20:11 Dose: Not Given Documented by: Ondansetron HCl (Zofran) 4 mg IVPUSH ONETIME ONE Stop: 01/03/21 20:07 Last Admin: 01/03/21 20:11 Dose: 4 mg Documented by: Ropivacaine (Naropin 0.5%) Confirm Administered Dose 30 ml .ROUTE .STK-MED ONE Stop: 01/06/21 09:57 Sodium Polystyrene Sulfonate (Kayexalate) 15 gm PO ONETIME ONE Stop: 01/04/21 08:50 Last Admin: 01/04/21 09:57 Dose: 15 gm Documented by: Spironolactone (Aldactone) 50 mg PO DAILY [facility] Last Admin: 01/04/21 08:10 Dose: 50 mg Documented by: Tamsulosin HCl (Flomax) 0.4 mg PO DAILY [facility] Last Admin: 01/04/21 17:44 Dose: Not Given Documented by: - Exam Quality Assessment: Supplemental Oxygen, Urine Catheter General: Alert, Oriented, Cooperative, No Acute Distress, Lethargic HEENT: Pupils Equal, Pupils Reactive, EOMI, Mucous Membr. Moist/Red Bud Neck: Supple Lungs: Normal Respiratory Effort, Decreased Breath Sounds Cardiovascular: Regular Rate, Regular Rhythm GI/Abdominal Exam: Normal Bowel Sounds, Soft, Non-Tender, No Organomegaly, No Distention, No Abnormal Bruit, No Mass (Female) Exam: Other (has urinary catheter) Back Exam: Decreased Range of Motion Extremities: Normal Inspection, Normal Range of Motion (left lower extremity), Non-Tender, No Pedal Edema, Normal Capillary Refill Peripheral Pulses: 0: Dorsalis Pedis (R) Skin: Warm, Dry, Intact Neurological: No New Focal Deficit (non focal deficits). No: Normal Gait Psy/Mental Status: Normal Affect, Depressed, Other (not awake and alert) Sepsis Event Note - Evaluation Sepsis Screening Result: No Definite Risk - Focused Exam Vital Signs: Vital Signs Temp Pulse Resp BP Pulse Ox Pulse Ox 01/08/21 10:37 95 01/08/21 09:11 92 L 01/08/21 09:05 61 155/58 H 01/08/21 08:55 95 01/08/21 06:03 94 L 01/08/21 05:31 36.4 C 66 18 151/99 H 93 L 01/07/21 23:51 36.2 C 63 16 123/49 L 96 - Problem List Review Problem List Initiated/Reviewed/Updated: Yes - Assessment Assessment:: Assessment - Day of admission 01/04/21 (admitted late 01/03/21) * 89 Yo female who presents after fall at [facility] resulting in left hip and elbow pain * Unknown why she fell. Hit head. Skin tear on left elbow * Left leg externally rotated and shortened * 12-lead EKG shows NSR at 81 BPM with a first degree AV block. * Head CT shows air-fluid levels in right maxillary sinus and senescent change. Nothing acute * Left hip X-ray suspicious for fracture * Left elbow x-ray shows nothing acute * 4cm skin tear on left elbow with skin missing repaired with steri-strips and gauze * Left Hip CT shows acute complex proximal left femoral fracture * Predominant fracture line appears to be predominantly basocervical oblique however a fracture line extends superolaterally anteriorly transcervically. * Fracture lines involving the greater trochanter as well. * There is some angulation and overriding of the fracture fragments. * CXR shows nothing acute * Dr. Huertas, orthopedic surgeon consulted by ED - plans for surgery on 01/06/21 due to patient being on Plavix\ * Given Dilaudid for pain and Zofran for nausea * Labs: * WBC 16.81 --> 18.22 * hemoglobin 13.6 --> 13.9 * platelet 232 --> 189 * neutrophils 13.83 --> 16.37 * INR 0.96 * sodium 143 --> 140 * potassium 4.7 --> 5.5 * anion gap 14.7 --> 17.5 * BUN 25 --> 29 * creatinine 2.1 --> 2.3 * GFR 20 ---> 20 * glucose 91 --> 267 * magnesium 2.4 * total bilirubin 0.5 --> 1.3 * AST 38 ---> 192 * ALT 32 --> 327 * alkaline phosphatase 77 --> 113 * troponin less than 0.017 * proBNP 136 --> 335 * albumin 3.6 --> 3.6 * UA negative but trace leukocyte esterase, 5-10 hyaline casts, and many bacteria noted * SARS Covid 2 RNA negative * MRSA negative * urine culture pending 01/05/21 * Continued left hip pain with movement. No pain when laying still. * Left elbow bandage noted to be saturated with drainage. Nursing will change * Up to 3 L of oxygen via nasal cannula. Has been utilizing I-S. * Renal function has been getting progressively worse. Will increase IV fluids and monitor. * Transaminitis is improving and bilirubin is trending downward. * Continue plan for surgery tomorrow. * Labs today: * WBC 14.15 * hemoglobin 12.0 * platelet 158 * neutrophils 10.94 * sodium 142 * potassium 4.1 * anion gap 13.1 * BUN 37, creatinine 2.6, GFR 17 * bilirubin 1.2 * AST 149, ALT 226, alk phos 87 * albumin 3.0 01/06/21 * Continued left hip pain with movement. No pain when laying still. * Left elbow bandage dry and intact * Up to 6 liters of oxygen per nasal cannula. O2 saturations ranged from 88 to 90%. Has been utilizing I-S. * IV fluids stopped as patient is having worsening O2 saturations consistent with congestive heart failure. * Transaminitis is improving and bilirubin is trending downward. * Surgery postponed until Sunday * Labs today: * WBC 14.15-->13.02 * hemoglobin 12.0-->10.7 * sodium 142-->143 * potassium 4.1 * BUN 37, creatinine 2.6, GFR 17-->BUN 34, Creat 2.1 * Intake and output showed a +1536 * Portable view of the chest radiologist impression: 1. Increased density within the right upper chest either due to pneumonia or changes of aspiration. 2. Mild atelectasis within both lung bases. 3. Increased central lung markings possibly due to acute or chronic pulmonary vascular congestion * Surgery postponed until Sunday. 01/07/21 * Continues to have left hip pain with movement 2/ fracture * Planned surgical fixation on 01/10/21 * Down to 3L via NC * UTI growing >100 CFUs aerococcus urinae * Started zosyn due to questionable aspiration PNA and UTI * Given 40mg IVP lasix today * Echo ordered due to history of prior CHF - Diastolic HF noted from 12/14 * Labs: * WBC 14.20 * Hgb 11.1 * Potassium 3.9 * BUN 34, Creatinine 1.8, GFR 36 01/08/2021 * Continues current treatment * Hold parameters for cyclobenzaprine and gabapentin * Cut down Gabapentin dose to 100 po BID due to oversedation and * Incentive spirometer as directed with beside pulmonary exercise * Routine AM Labs * Hold lasix for now * Encourage to eat and drink fluids * Lantus 10 units subQ BID * DVT and GI prophylaxis: Heparin and H2B * Code status: DNR/DNI * LOS> 96hrs due to complexity of acute illness - Plan Plan:: Closed left hip fracture Fall skilled nursing resident * Pain medications as ordered * Bedrest * Blackman until post surgical * Flexeril as ordered * PT/OT * CM/SW for discharge planning * Dr. Huertas, orthopedic surgeon consulted in ED * Planning surgery on 01/10/21 (wait due to decreasing O2 saturations) * Hold home Plavix * Heparin/SCDs for VTE * IS * Optimize for surgery * Ice pack as needed * Nursing staff to reposition every 2 hours * High risk for cardio-pulmonary event for intermediate surgical risk; daughter Lisbeth is aware Acute respiratory failure, 3-4L NC CHF exacerbation CHF (congestive heart failure), NYHA class II Elevated Pro-BNP Fluid overload Hypoalbuminemia with Albumin of 2.6 Questionable pneumonia * Review old echo * New echocardiogram ordered * Lasix 40mg x1 IVP today; hold lasix with slightly worsened Cr level and poor oral intake * Stop fluids - renal function improved * Already on Zosyn for antibiotic coverage * Incentive spirometer and bedside pulmonary exercise UTI Leukocytosis, improving * Zosyn Q8 HR * Treat underlying cause Elevated ALT measurement, continues to improve * Avoid tylenol * Re-check labs and monitor Acute on chronic renal failure, worsening Mild Hypernatremia * IV fluids discontinued due to worsening heart failure * Avoid nephrotoxic medications * Hold lasix for now and encourage to drink fluids * Monitor labs DM2 (diabetes mellitus, type 2), not well controlled * Lantus (sub for Tresiba) - will cut dose by half due to minimal PO intake-->increase LA to 10 units SubQ BID * Low dose scale humalog (down from medium dose due to poor PO intake) * QID AC and bedtime blood glucose checks * Consistent carbohydrate diet Anemia Afib HTN (hypertension) Chronic constipation Urinary retention Chronic back pain History of TIA (transient ischemic attack) Depression * Review/reconcile home medications * Telemetry * PRN stool softeners Resolved: Hyperkalemia Hyperbilirubinemia Elevated AST (SGOT) Code status: DNR/DNI PCP: Dr. Winchester DVT prophylaxis: Heparin/SCDs Social: Patient resides in [facility] Disposition: Patient admitted inpatient with telemetry for surgical management of left hip fracture on 01/06/21. Postponed until January 10, 2021 LOS >96 hrs due to delay in surgery for CHF/PNA/UTI treatment. Spoke to daughter Lisbeth to day and update her about her clinical progress. 2024: I was informed her BS is > 500. She had a very good appetite this evening. We will give her LA insulin and ISS. Repeat BS check in a couple of hours.
[2021-01-08] MEDS: Acetaminophen 325 MG Tab PO PRN (11:49)
[2021-01-08] MEDS ORDERED: Insulin Glarg,Human.Rec.Analog 100 Unit/ML SUBCUT STA (19:05)
[2021-01-08] MEDS: Gabapentin 100 MG Cap PO SCH (20:11)
[2021-01-08] MEDS ORDERED: Sodium Chloride 0.9% 500 ML IV SCH (20:30)
[2021-01-09] MEDS: Heparin Sodium 5,000 Units/ML Vial SUBCUT SCH ×2 (02:03→10:58)
[2021-01-09] MEDS: Piperacillin/Tazobactam 4.5 GM in Sodium Chloride 0.9% 100 ML IV SCH ×2 (08:14→20:30)
[2021-01-09] MEDS: Insulin Glarg,Human.Rec.Analog 100 Unit/ML SUBCUT SCH ×2 (08:36→21:14)
[2021-01-09] MEDS: Docusate Sodium 100 MG Cap PO SCH ×2 (08:43→20:36)
[2021-01-09] MEDS: Metoprolol Succinate 50 MG Tab.ER PO SCH (08:43)
[2021-01-09] MEDS: Gabapentin 100 MG Cap PO SCH ×2 (09:10→20:36)
--- NOTE | 2021-01-09 12:21 | PCM.PN ---
- General Info Date of Service: 01/09/21 Admission Dx/Problem (Free Text): Admission Diagnosis/Problem Admission Diagnosis/Problem Hip fracture requiring operative repair Subjective Update: No significant overnight or acute issues. She is more alert and awake. Her pain is controlled. She is on 3L NC sating at 82-91%. She has been drinking a lot of protein shakes. Her Na is slightly up at 150. Her K is down to 3.4 and Cr is down to 1.7. Her BS overall remains uncontrolled. No report of aspiration of choking spell. Functional Status: Reports: Pain Controlled, Tolerating Diet, Urinating - Review of Systems General: Reports: Weakness. Denies: Fever, Chills HEENT: Reports: No Symptoms Pulmonary: Denies: Shortness of Breath Cardiovascular: Denies: Chest Pain, Dyspnea on Exertion Gastrointestinal: Denies: Abdominal Pain, Nausea, Vomiting Genitourinary: Reports: Retention Musculoskeletal: Reports: Joint Pain Skin: Denies: Bruising, Pruritis, Rash Neurological: Reports: Difficulty Walking, Weakness, Gait Disturbance. Denies: Confusion Psychiatric: Denies: Depression, Anxiety - Patient Data Vitals - Most Recent: Last Vital Signs Temp 36.9 C 01/09/21 08:20 Pulse 68 01/09/21 08:43 Resp 18 01/09/21 08:20 BP 132/58 L 01/09/21 08:43 Pulse Ox 91 L 01/09/21 08:20 Weight - Most Recent: 71.758 kg I&O - Last 24 Hours: Intake & Output 01/08/21 01/09/21 01/09/21 22:59 06:59 14:59 Intake Total 1168 400 Output Total 375 500 Balance 793 -100 Lab Results Last 24 Hours: Laboratory Results - last 24 hr 01/08/21 01/08/21 01/09/21 Range/Units 18:10 21:35 05:20 WBC 12.72 H (3.98-10.04) K/mm3 RBC 3.48 L (3.98-5.22) M/mm3 Hgb 10.7 L (11.2-15.7) gm/dl Hct 33.8 L (34.1-44.9) % MCV 97.1 H (79.4-94.8) fl MCH 30.7 (25.6-32.2) pg MCHC 31.7 L (32.2-35.5) g/dl RDW Std Deviation 51.0 H (36.4-46.3) fL Plt Count 178 L (182-369) K/mm3 MPV 11.5 (9.4-12.3) fl Neut % (Auto) 77.3 H (34.0-71.1) % Lymph % (Auto) 12.1 L (19.3-51.7) % Haakon % (Auto) 7.4 (4.7-12.5) % Eos % (Auto) 2.3 (0.7-5.8) Baso % (Auto) 0.2 (0.1-1.2) % Neut # (Auto) 9.83 H (1.56-6.13) K/mm3 Lymph # (Auto) 1.54 (1.18-3.74) K/mm3 Haakon # (Auto) 0.94 H (0.24-0.36) K/mm3 Eos # (Auto) 0.29 (0.04-0.36) K/mm3 Baso # (Auto) 0.03 (0.01-0.08) K/mm3 Sodium (136-145) mEq/L Potassium (3.5-5.1) mEq/L Chloride (98-107) mEq/L Carbon Dioxide (21-32) mEq/L Anion Gap (5-15) BUN (7-18) mg/dL Creatinine (0.55-1.02) mg/dL Est Cr Clr Drug Dosing mL/min Estimated GFR (MDRD) (>60) mL/min BUN/Creatinine Ratio (14-18) Glucose 529 H 381 H (83-115) mg/dL POC Glucose (83-110) mg/dL Calcium (8.5-10.1) mg/dL Magnesium (1.8-2.4) mg/dl 01/09/21 01/09/21 01/09/21 Range/Units 05:20 06:34 11:01 WBC (3.98-10.04) K/mm3 RBC (3.98-5.22) M/mm3 Hgb (11.2-15.7) gm/dl Hct (34.1-44.9) % MCV (79.4-94.8) fl MCH (25.6-32.2) pg MCHC (32.2-35.5) g/dl RDW Std Deviation (36.4-46.3) fL Plt Count (182-369) K/mm3 MPV (9.4-12.3) fl Neut % (Auto) (34.0-71.1) % Lymph % (Auto) (19.3-51.7) % Haakon % (Auto) (4.7-12.5) % Eos % (Auto) (0.7-5.8) Baso % (Auto) (0.1-1.2) % Neut # (Auto) (1.56-6.13) K/mm3 Lymph # (Auto) (1.18-3.74) K/mm3 Haakon # (Auto) (0.24-0.36) K/mm3 Eos # (Auto) (0.04-0.36) K/mm3 Baso # (Auto) (0.01-0.08) K/mm3 Sodium 150 H (136-145) mEq/L Potassium 3.4 L (3.5-5.1) mEq/L Chloride 109 H (98-107) mEq/L Carbon Dioxide 33 H (21-32) mEq/L Anion Gap 11.4 (5-15) BUN 35 H (7-18) mg/dL Creatinine 1.7 H (0.55-1.02) mg/dL Est Cr Clr Drug Dosing 16.11 mL/min Estimated GFR (MDRD) 28 (>60) mL/min BUN/Creatinine Ratio 20.6 H (14-18) Glucose 123 H (83-115) mg/dL POC Glucose 139 H 388 H (83-110) mg/dL Calcium 9.2 (8.5-10.1) mg/dL Magnesium 2.5 H (1.8-2.4) mg/dl Med Orders - Current: Current Medications Acetaminophen (Tylenol) 650 mg PO Q4H PRN PRN Reason: Fever Last Admin: 01/08/21 11:49 Dose: 650 mg Documented by: Albuterol/Ipratropium (Duoneb 3.0-0.5 Mg/3 Ml) 3 ml NEB Q4H PRN PRN Reason: Shortness Of Breath/wheezing Calcium Carbonate/Glycine (Tums) 500 mg PO Q4H PRN PRN Reason: Heartburn Cyclobenzaprine HCl (Flexeril) 10 mg PO TID PRN PRN Reason: muscle spasms Last Admin: 01/04/21 12:36 Dose: 10 mg Documented by: Docusate Sodium (Colace) 100 mg PO BID [facility] Last Admin: 01/09/21 08:43 Dose: 100 mg Documented by: Famotidine (Pepcid) 20 mg PO Q48H [facility] Last Admin: 01/08/21 09:08 Dose: 20 mg Documented by: Furosemide (Lasix) 40 mg PO DAILY [facility] Gabapentin (Neurontin) 100 mg PO BID [facility] Last Admin: 01/09/21 09:10 Dose: 100 mg Documented by: Heparin Sodium (Porcine) (Heparin Sodium) 5,000 units SUBCUT Q8H [facility] Last Admin: 01/09/21 10:58 Dose: 5,000 units Documented by: Hydralazine HCl (Apresoline) 10 mg IVPUSH Q4H PRN PRN Reason: Hypertension Hydromorphone HCl (Dilaudid) 0.5 mg IVPUSH Q4H PRN PRN Reason: Pain (severe 7-10) Last Admin: 01/06/21 08:18 Dose: 0.5 mg Documented by: Promethazine HCl 12.5 mg/ (Sodium Chloride) 50.5 mls @ 100 mls/hr IV Q6H PRN PRN Reason: Nausea/Vomiting Piperacillin Sod/Tazobactam (Sod 4.5 gm/ Sodium Chloride) 100 mls @ 25 mls/hr IV Q12H [facility] Last Admin: 01/09/21 08:14 Dose: 25 mls/hr Documented by: Insulin Glargine (Lantus) 10 unit SUBCUT BID [facility] Last Admin: 01/09/21 08:36 Dose: 10 units Documented by: Insulin Human Lispro (Humalog) 0 unit SUBCUT QIDACANDBED [facility]; Protocol Last Admin: 01/09/21 11:06 Dose: 10 units Documented by: Magnesium Hydroxide (Milk Of Magnesia) 30 ml PO DAILY PRN PRN Reason: Constipation Last Admin: 01/07/21 16:09 Dose: 30 ml Documented by: Metoprolol Succinate (Toprol Xl) 50 mg PO DAILY [facility] Last Admin: 01/09/21 08:43 Dose: 50 mg Documented by: Oxycodone HCl (Oxycodone) 5 mg PO Q6H PRN PRN Reason: Pain (moderate 4-6) Last Admin: 01/08/21 06:56 Dose: 5 mg Documented by: Discontinued Medications Acetaminophen (Tylenol) 650 mg PO Q6H PRN PRN Reason: Pain (Mild 1-3)/fever Last Admin: 01/04/21 12:34 Dose: 650 mg Documented by: Bupivacaine HCl (Marcaine 0.5%) Confirm Administered Dose 30 ml .ROUTE .STK-MED ONE Stop: 01/06/21 09:56 Calcium Carbonate/Glycine (Tums) 400 mg PO Q4H PRN PRN Reason: Heartburn Docusate Sodium (Colace) 100 mg PO BID PRN PRN Reason: Constipation Last Admin: 01/06/21 15:57 Dose: 100 mg Documented by: Famotidine (Pepcid) 20 mg PO DAILY [facility] Last Admin: 01/04/21 09:57 Dose: 20 mg Documented by: Fentanyl (Sublimaze) Confirm Administered Dose 100 mcg .ROUTE .STK-MED ONE Stop: 01/06/21 10:46 Furosemide (Lasix) 40 mg IVPUSH NOW ONE Stop: 01/03/21 21:42 Last Admin: 01/03/21 22:00 Dose: 40 mg Documented by: Furosemide (Lasix) 20 mg PO DAILY [facility] Last Admin: 01/04/21 13:04 Dose: Not Given Documented by: Furosemide (Lasix) 20 mg IVPUSH ONETIME ONE Stop: 01/04/21 18:01 Last Admin: 01/04/21 18:47 Dose: 20 mg Documented by: Furosemide (Lasix) 40 mg IVPUSH NOW ONE Stop: 01/06/21 11:15 Last Admin: 01/06/21 11:22 Dose: 40 mg Documented by: Furosemide (Lasix) 40 mg IVPUSH NOW ONE Stop: 01/07/21 08:13 Last Admin: 01/07/21 08:29 Dose: 40 mg Documented by: Furosemide (Lasix) 40 mg PO DAILY [facility] Last Admin: 01/08/21 09:04 Dose: 40 mg Documented by: Gabapentin (Neurontin) 600 mg PO BID [facility] Last Admin: 01/04/21 08:10 Dose: 600 mg Documented by: Gabapentin (Neurontin) 600 mg PO BID [facility] Last Admin: 01/08/21 09:04 Dose: 600 mg Documented by: Heparin Sodium (Porcine) (Heparin Sodium) 5,000 units SUBCUT Q8H [facility] Stop: 01/05/21 23:00 Last Admin: 01/05/21 21:18 Dose: 5,000 units Documented by: Hydromorphone HCl (Dilaudid) 0.25 mg IVPUSH ONETIME ONE Stop: 01/03/21 20:02 Last Admin: 01/03/21 20:10 Dose: 0.25 mg Documented by: Hydromorphone HCl (Dilaudid) 0.25 mg IVPUSH ONETIME ONE Stop: 01/03/21 22:22 Last Admin: 01/03/21 23:17 Dose: 0.25 mg Documented by: Sodium Chloride (Normal Saline) 1,000 mls @ 65 mls/hr IV ASDIRECTED [facility] Lactated Ringer's (Ringers, Lactated) 1,000 mls @ 50 mls/hr IV ASDIRECTED [facility] Last Admin: 01/04/21 14:18 Dose: 50 mls/hr Documented by: Lactated Ringer's (Ringers, Lactated) 1,000 mls @ 65 mls/hr IV ASDIRECTED [facility] Last Admin: 01/05/21 06:46 Dose: 65 mls/hr Documented by: Lactated Ringer's (Ringers, Lactated) 1,000 mls @ 100 mls/hr IV ASDIRECTED [facility] Stop: 01/05/21 19:29 Last Admin: 01/05/21 09:44 Dose: 100 mls/hr Documented by: Lactated Ringer's (Ringers, Lactated) 1,000 mls @ 75 mls/hr IV ASDIRECTED [facility] Last Admin: 01/06/21 07:37 Dose: 75 mls/hr Documented by: Piperacillin Sod/Tazobactam (Sod 4.5 gm/ Sodium Chloride) 100 mls @ 25 mls/hr IV Q8H [facility] Piperacillin Sod/Tazobactam (Sod 4.5 gm/ Sodium Chloride) 100 mls @ 200 mls/hr IV ONETIME ONE Stop: 01/07/21 08:29 Last Admin: 01/07/21 08:35 Dose: 200 mls/hr Documented by: Sodium Chloride (Normal Saline) 500 mls @ 45 mls/hr IV ASDIRECTED [facility] Stop: 01/09/21 07:37 Last Admin: 01/08/21 21:56 Dose: 45 mls/hr Documented by: Insulin Glargine (Lantus) 15 unit SUBCUT DAILY [facility] Last Admin: 01/07/21 08:01 Dose: Not Given Documented by: Insulin Glargine (Lantus) 7.5 unit SUBCUT ONETIME ONE Stop: 01/07/21 09:01 Last Admin: 01/07/21 08:16 Dose: 7.5 units Documented by: Insulin Glargine (Lantus) 15 unit SUBCUT DAILY [facility] Insulin Glargine (Lantus) 7.5 unit SUBCUT DAILY [facility] Last Admin: 01/08/21 09:06 Dose: 7.5 units Documented by: Insulin Glargine (Lantus) 10 unit SUBCUT NOW STA Stop: 01/08/21 19:06 Last Admin: 01/08/21 19:28 Dose: 10 unit Documented by: Insulin Human Lispro (Humalog) 0 unit SUBCUT QIDACANDBED [facility]; Protocol Last Admin: 01/08/21 14:23 Dose: Not Given Documented by: Insulin Human Lispro (Humalog) 0 unit SUBCUT QIDACANDBED [facility]; Protocol Ketamine HCl (Ketalar) Confirm Administered Dose 500 mg .ROUTE .STK-MED ONE Stop: 01/06/21 10:47 Lidocaine HCl (Xylocaine 1%) 10 ml INJECT ONETIME ONE Stop: 01/03/21 18:58 Last Admin: 01/04/21 00:57 Dose: Not Given Documented by: Lidocaine/Epinephrine (Xylocaine-Mpf 2%-Epi 1:200,000) Confirm Administered Dose 20 ml .ROUTE .STK-MED ONE Stop: 01/06/21 10:13 Midazolam HCl (Versed 1 Mg/Ml) Confirm Administered Dose 2 mg .ROUTE .STK-MED ONE Stop: 01/06/21 10:46 Non-Formulary Medication (Insulin Degludec [Tresiba]) 15 unit SQ DAILY [facility] Ondansetron HCl (Zofran) 4 mg IVPUSH ONETIME ONE Stop: 01/03/21 18:48 Last Admin: 01/03/21 18:51 Dose: 4 mg Documented by: Ondansetron HCl (Zofran) Confirm Administered Dose 4 mg .ROUTE .STK-MED ONE Stop: 01/03/21 19:51 Last Admin: 01/03/21 20:11 Dose: Not Given Documented by: Ondansetron HCl (Zofran) 4 mg IVPUSH ONETIME ONE Stop: 01/03/21 20:07 Last Admin: 01/03/21 20:11 Dose: 4 mg Documented by: Ropivacaine (Naropin 0.5%) Confirm Administered Dose 30 ml .ROUTE .STK-MED ONE Stop: 01/06/21 09:57 Sodium Polystyrene Sulfonate (Kayexalate) 15 gm PO ONETIME ONE Stop: 01/04/21 08:50 Last Admin: 01/04/21 09:57 Dose: 15 gm Documented by: Spironolactone (Aldactone) 50 mg PO DAILY [facility] Last Admin: 01/04/21 08:10 Dose: 50 mg Documented by: Tamsulosin HCl (Flomax) 0.4 mg PO DAILY [facility] Last Admin: 01/04/21 17:44 Dose: Not Given Documented by: - Exam Quality Assessment: Supplemental Oxygen General: Alert, Oriented, Cooperative, No Acute Distress HEENT: Pupils Equal, Pupils Reactive, EOMI, Mucous Membr. Moist/[place] Neck: Supple Lungs: Normal Respiratory Effort, Decreased Breath Sounds Cardiovascular: Regular Rate, Regular Rhythm GI/Abdominal Exam: Normal Bowel Sounds, Soft, Non-Tender, No Organomegaly, No Distention, No Abnormal Bruit (Female) Exam: Other (urinary catheter) Back Exam: Normal Inspection, Decreased Range of Motion Extremities: Normal Inspection, Normal Range of Motion (left lower extremity), Non-Tender, No Pedal Edema, Normal Capillary Refill Peripheral Pulses: 2+: Dorsalis Pedis (L), Dorsalis Pedis (R) Skin: Warm, Dry, Intact Neurological: No New Focal Deficit, Normal Gait Psy/Mental Status: Alert, Normal Affect, Normal Mood Sepsis Event Note - Evaluation Sepsis Screening Result: No Definite Risk - Focused Exam Vital Signs: Vital Signs Temp Pulse Resp BP Pulse Ox 01/09/21 08:43 68 132/58 L 01/09/21 08:20 36.9 C 66 18 132/58 L 91 L 01/09/21 07:43 36.6 C 61 20 137/88 82 L 01/09/21 05:24 36.7 C 55 L 16 131/36 L 95 01/09/21 00:31 36.7 C 55 L 16 133/36 L 92 L - Problem List Review Problem List Initiated/Reviewed/Updated: Yes - My Orders Last 24 Hours: My Active Orders 01/08/21 12:45 Insulin Lispro [HumaLOG] 0 unit SUBCUT QIDACANDBED 01/08/21 21:00 Gabapentin [Neurontin] 100 mg PO BID Insulin Glarg,Human.Rec.Analog [LantUS] 10 unit SUBCUT BID 01/10/21 05:11 BMP [BASIC METABOLIC PANEL,BMP] [CHEM] AM CBC WITH AUTO DIFF [HEME] AM MAGNESIUM [CHEM] AM 01/10/21 09:00 Furosemide [Lasix] 40 mg PO DAILY 01/11/21 05:11 BMP [BASIC METABOLIC PANEL,BMP] [CHEM] AM CBC WITH AUTO DIFF [HEME] AM MAGNESIUM [CHEM] AM 01/12/21 05:11 BMP [BASIC METABOLIC PANEL,BMP] [CHEM] AM CBC WITH AUTO DIFF [HEME] AM MAGNESIUM [CHEM] AM - Assessment Assessment:: Assessment - Day of admission 01/04/21 (admitted late 01/03/21) * 89 Yo female who [facility] resulting in left hip and elbow pain * Unknown why she fell. Hit head. Skin tear on left elbow * Left leg externally rotated and shortened * 12-lead EKG shows NSR at 81 BPM with a first degree AV block. * Head CT shows air-fluid levels in right maxillary sinus and senescent change. Nothing acute * Left hip X-ray suspicious for fracture * Left elbow x-ray shows nothing acute * 4cm skin tear on left elbow with skin missing repaired with steri-strips and gauze * Left Hip CT shows acute complex proximal left femoral fracture * Predominant fracture line appears to be predominantly basocervical oblique however a fracture line extends superolaterally anteriorly transcervically. * Fracture lines involving the greater trochanter as well. * There is some angulation and overriding of the fracture fragments. * CXR shows nothing acute * Dr. Huertas, orthopedic surgeon consulted by ED - plans for surgery on 01/06/21 due to patient being on Plavix\ * Given Dilaudid for pain and Zofran for nausea * Labs: * WBC 16.81 --> 18.22 * hemoglobin 13.6 --> 13.9 * platelet 232 --> 189 * neutrophils 13.83 --> 16.37 * INR 0.96 * sodium 143 --> 140 * potassium 4.7 --> 5.5 * anion gap 14.7 --> 17.5 * BUN 25 --> 29 * creatinine 2.1 --> 2.3 * GFR 20 ---> 20 * glucose 91 --> 267 * magnesium 2.4 * total bilirubin 0.5 --> 1.3 * AST 38 ---> 192 * ALT 32 --> 327 * alkaline phosphatase 77 --> 113 * troponin less than 0.017 * proBNP 136 --> 335 * albumin 3.6 --> 3.6 * UA negative but trace leukocyte esterase, 5-10 hyaline casts, and many bacteria noted * SARS Covid 2 RNA negative * MRSA negative * urine culture pending 01/05/21 * Continued left hip pain with movement. No pain when laying still. * Left elbow bandage noted to be saturated with drainage. Nursing will change * Up to 3 L of oxygen via nasal cannula. Has been utilizing I-S. * Renal function has been getting progressively worse. Will increase IV fluids and monitor. * Transaminitis is improving and bilirubin is trending downward. * Continue plan for surgery tomorrow. * Labs today: * WBC 14.15 * hemoglobin 12.0 * platelet 158 * neutrophils 10.94 * sodium 142 * potassium 4.1 * anion gap 13.1 * BUN 37, creatinine 2.6, GFR 17 * bilirubin 1.2 * AST 149, ALT 226, alk phos 87 * albumin 3.0 01/06/21 * Continued left hip pain with movement. No pain when laying still. * Left elbow bandage dry and intact * Up to 6 liters of oxygen per nasal cannula. O2 saturations ranged from 88 to 90%. Has been utilizing I-S. * IV fluids stopped as patient is having worsening O2 saturations consistent with congestive heart failure. * Transaminitis is improving and bilirubin is trending downward. * Surgery postponed until Sunday * Labs today: * WBC 14.15-->13.02 * hemoglobin 12.0-->10.7 * sodium 142-->143 * potassium 4.1 * BUN 37, creatinine 2.6, GFR 17-->BUN 34, Creat 2.1 * Intake and output showed a +1536 * Portable view of the chest radiologist impression: 1. Increased density within the right upper chest either due to pneumonia or changes of aspiration. 2. Mild atelectasis within both lung bases. 3. Increased central lung markings possibly due to acute or chronic pulmonary vascular congestion * Surgery postponed until Sunday. 01/07/21 * Continues to have left hip pain with movement 2/2 fracture * Planned surgical fixation on 01/10/21 * Down to 3L via NC * UTI growing >100 CFUs aerococcus urinae * Started zosyn due to questionable aspiration PNA and UTI * Given 40mg IVP lasix today * Echo ordered due to history of prior CHF - Diastolic HF noted from 12/14 * Labs: * WBC 14.20 * Hgb 11.1 * Potassium 3.9 * BUN 34, Creatinine 1.8, GFR 36 01/08/2021 * Continues current treatment * Hold parameters for cyclobenzaprine and gabapentin * Cut down Gabapentin dose to 100 po BID due to oversedation and * Incentive spirometer as directed with beside pulmonary exercise * Routine AM Labs * Hold lasix for now * Encourage to eat and drink fluids * Lantus 10 units subQ BID * DVT and GI prophylaxis: Heparin and H2B * Code status: DNR/DNI * LOS> 96hrs due to complexity of acute illness 01/09/2021 * Continues current treatment * Continue hold parameters for cyclobenzaprine and gabapentin * Incentive spirometer as directed with beside pulmonary exercise * Routine AM Labs * Continue to hold lasix * Encourage to eat and drink fluids * May consider going up on Lantus to 13 units subQ BID since she is eating more * KCl 40 mEq po and 20 mEq IV x1 * D51/2 at 50 cc for hypernatremia * Repeat BMP at 1600 * Hold Heparin dose tonight * DVT and GI prophylaxis: Heparin and H2B * Code status: DNR/DNI * LOS> 96hrs due to complexity of acute illness - Plan Plan:: Closed left hip fracture [facility] resident * Pain medications as ordered * Bedrest * Blackman until post surgical * Flexeril as ordered * PT/OT * CM/SW for discharge planning * Dr. Huertas, orthopedic surgeon consulted in ED * Planning surgery on 01/10/21 (wait due to decreasing O2 saturations) * Hold home Plavix * Heparin/SCDs for VTE; will hold next dose tonight for AM surgery * IS * Optimize for surgery * Ice pack as needed * Nursing staff to reposition every 2 hours * High risk for cardio-pulmonary event for intermediate surgical risk; daughter Lisbeth is aware Acute respiratory failure, 3-4L NC CHF exacerbation CHF (congestive heart failure), NYHA class II Elevated Pro-BNP Fluid overload Hypoalbuminemia with Albumin of 2.6 Questionable pneumonia * Review old echo * New echocardiogram ordered * Lasix 40mg x1 IVP today; hold lasix with slightly worsened Cr level and poor oral intake * Stop fluids - renal function improved * Already on Zosyn for antibiotic coverage * Incentive spirometer and bedside pulmonary exercise * Repeat CXR in AM UTI Leukocytosis, slightly worse * Zosyn Q8 HR * WBC is 12.72 today * Treat underlying cause Elevated ALT measurement, continues to improve * Avoid tylenol * Re-check labs and monitor Acute on chronic renal failure, improved hypokalemia with K of 3.4 Mild Hypernatremia with sodium of 150, slightly worse Hypermagnesemia with Mg of 2.5 * IV fluids discontinued due to worsening heart failure * Avoid nephrotoxic medications * She is getting zosyn and a little too much protein supplements * Cut down supplements and protein shakes * D51/2NS at 50 cc in 1L x1 * Continue to hold lasix and encourage to drink fluids * Repeat BMP at 1600 DM2 (diabetes mellitus, type 2), remains uncontrolled * Lantus (sub for Tresiba) - will cut dose by half due to minimal PO intake-->increase LA to 13 units SubQ BID * Low dose scale humalog (down from medium dose due to poor PO intake) * QID AC and bedtime blood glucose checks * Consistent carbohydrate diet Anemia Afib HTN (hypertension) Chronic constipation Urinary retention Chronic back pain History of TIA (transient ischemic attack) Depression * Review/reconcile home medications * Telemetry * PRN stool softeners Resolved: Hyperkalemia Hyperbilirubinemia Elevated AST (SGOT) Code status: DNR/DNI PCP: Dr. Winchester DVT prophylaxis: Heparin/SCDs Social: Patient resides in [facility] Disposition: Patient admitted inpatient with telemetry for surgical management of left hip fracture on 01/06/21. Postponed until January 10, 2021 LOS >96 hrs due to delay in surgery for CHF/PNA/UTI treatment. Updated daughter at bedside. Hold evening heparin dose.
[2021-01-09] MEDS ORDERED: Potassium Chloride 20 MEQ Tab.ER PO STA (12:24)
[2021-01-09] MEDS ORDERED: Potassium Chloride 20 MEQ in Dextrose 5% in Water 1,000 ML IV SCH ×2 (12:30)
[2021-01-09] MEDS ORDERED: Potassium Chloride 20 MEQ Tab.ER PO ONE (12:38)
[2021-01-09] MEDS: D5 1/2 NS w/ 10 mEq/L KCl 1,000 ML IV SCH (13:21)
[2021-01-09] MEDS: Acetaminophen 325 MG Tab PO PRN (21:00)
[2021-01-09] MEDS ORDERED: Insulin Glarg,Human.Rec.Analog 100 Unit/ML SUBCUT STA (21:11)
--- NOTE | 2021-01-10 07:25 | PCM.PN ---
<Jamar Bailey - Last Filed: 01/10/21 12:41> - General Info Date of Service: 01/10/21 Admission Dx/Problem (Free Text): Admission Diagnosis/Problem Admission Diagnosis/Problem Hip fracture requiring operative repair Subjective Update: In to see [place]. She remains in bed with a Blackman catheter. Pain is controlled. She clinically looks better and reports she is feeling better. She continues to have pain with movement but otherwise is doing okay. She will have surgery today for a katey and screw placement with Dr. Huertas. She has no complaints. Kidney function continues to improve and her glucose remains 2-300 but her intake has improved. Sodium is again elevated. She is n.p.o. we will follow up after surgery. Functional Status: Reports: Pain Controlled, Tolerating Diet, Urinating (Blackman in place ), Incentive Spirometry. Denies: Ambulating, New Symptoms - Review of Systems General: Reports: Weakness, Fatigue. Denies: Fever, Malaise, Chills HEENT: Reports: No Symptoms. Denies: Headaches, Sore Throat Pulmonary: Reports: No Symptoms. Denies: Shortness of Breath, Cough, Sputum, Wheezing Cardiovascular: Reports: No Symptoms. Denies: Chest Pain, Palpitations, Dyspnea on Exertion, Lightheadedness Gastrointestinal: Reports: Constipation. Denies: Abdominal Pain, Diarrhea, Nausea, Vomiting Genitourinary: Reports: No Symptoms. Denies: Pain Musculoskeletal: Reports: Leg Pain (bilateral ) Skin: Reports: No Symptoms. Denies: Cyanosis Neurological: Reports: Difficulty Walking, Weakness, Gait Disturbance. Denies: Confusion Psychiatric: Reports: No Symptoms - Patient Data Vitals - Most Recent: Last Vital Signs Temp 97.5 F 01/10/21 04:11 Pulse 50 L 01/10/21 04:11 Resp 16 01/10/21 04:11 BP 135/46 L 01/10/21 04:11 Pulse Ox 95 01/10/21 04:11 Weight - Most Recent: 72.847 kg I&O - Last 24 Hours: Intake & Output 01/09/21 01/10/21 01/10/21 22:59 06:59 14:59 Intake Total 1140 825 Output Total 400 825 Balance 740 0 Lab Results Last 24 Hours: Laboratory Results - last 24 hr 01/09/21 01/09/21 01/09/21 Range/Units 11:01 16:14 17:06 WBC (3.98-10.04) K/mm3 RBC (3.98-5.22) M/mm3 Hgb (11.2-15.7) gm/dl Hct (34.1-44.9) % MCV (79.4-94.8) fl MCH (25.6-32.2) pg MCHC (32.2-35.5) g/dl RDW Std Deviation (36.4-46.3) fL Plt Count (182-369) K/mm3 MPV (9.4-12.3) fl Neut % (Auto) (34.0-71.1) % Lymph % (Auto) (19.3-51.7) % [place] % (Auto) (4.7-12.5) % Eos % (Auto) (0.7-5.8) Baso % (Auto) (0.1-1.2) % Neut # (Auto) (1.56-6.13) K/mm3 Lymph # (Auto) (1.18-3.74) K/mm3 [place] # (Auto) (0.24-0.36) K/mm3 Eos # (Auto) (0.04-0.36) K/mm3 Baso # (Auto) (0.01-0.08) K/mm3 Manual Slide Review Sodium 142 (136-145) mEq/L Potassium 4.0 (3.5-5.1) mEq/L Chloride 105 (98-107) mEq/L Carbon Dioxide 28 (21-32) mEq/L Anion Gap 13.0 (5-15) BUN 33 H (7-18) mg/dL Creatinine 1.8 H (0.55-1.02) mg/dL Est Cr Clr Drug Dosing 15.22 mL/min Estimated GFR (MDRD) 26 (>60) mL/min BUN/Creatinine Ratio 18.3 H (14-18) Glucose 342 H (83-115) mg/dL POC Glucose 388 H 347 H (83-110) mg/dL Calcium 8.9 (8.5-10.1) mg/dL Magnesium (1.8-2.4) mg/dl Blood Type 02/14/21 02/15/21 02/15/21 Range/Units 20:39 06:17 06:20 WBC 9.64 (3.98-10.04) K/mm3 RBC 3.52 L (3.98-5.22) M/mm3 Hgb 10.7 L (11.2-15.7) gm/dl Hct 34.5 (34.1-44.9) % MCV 98.0 H (79.4-94.8) fl MCH 30.4 (25.6-32.2) pg MCHC 31.0 L (32.2-35.5) g/dl RDW Std Deviation 52.0 H (36.4-46.3) fL Plt Count 189 (182-369) K/mm3 MPV 11.2 (9.4-12.3) fl Neut % (Auto) 69.9 (34.0-71.1) % Lymph % (Auto) 17.4 L (19.3-51.7) % [place] % (Auto) 8.5 (4.7-12.5) % Eos % (Auto) 2.1 (0.7-5.8) Baso % (Auto) 0.4 (0.1-1.2) % Neut # (Auto) 6.74 H (1.56-6.13) K/mm3 Lymph # (Auto) 1.68 (1.18-3.74) K/mm3 [place] # (Auto) 0.82 H (0.24-0.36) K/mm3 Eos # (Auto) 0.20 (0.04-0.36) K/mm3 Baso # (Auto) 0.04 (0.01-0.08) K/mm3 Manual Slide Review Normal smear Sodium (136-145) mEq/L Potassium (3.5-5.1) mEq/L Chloride (98-107) mEq/L Carbon Dioxide (21-32) mEq/L Anion Gap (5-15) BUN (7-18) mg/dL Creatinine (0.55-1.02) mg/dL Est Cr Clr Drug Dosing mL/min Estimated GFR (MDRD) (>60) mL/min BUN/Creatinine Ratio (14-18) Glucose (83-115) mg/dL POC Glucose 367 H 223 H (83-110) mg/dL Calcium (8.5-10.1) mg/dL Magnesium (1.8-2.4) mg/dl Blood Type 01/10/21 01/10/21 Range/Units 06:20 06:20 WBC (3.98-10.04) K/mm3 RBC (3.98-5.22) M/mm3 Hgb (11.2-15.7) gm/dl Hct (34.1-44.9) % MCV (79.4-94.8) fl MCH (25.6-32.2) pg MCHC (32.2-35.5) g/dl RDW Std Deviation (36.4-46.3) fL Plt Count (182-369) K/mm3 MPV (9.4-12.3) fl Neut % (Auto) (34.0-71.1) % Lymph % (Auto) (19.3-51.7) % [place] % (Auto) (4.7-12.5) % Eos % (Auto) (0.7-5.8) Baso % (Auto) (0.1-1.2) % Neut # (Auto) (1.56-6.13) K/mm3 Lymph # (Auto) (1.18-3.74) K/mm3 [place] # (Auto) (0.24-0.36) K/mm3 Eos # (Auto) (0.04-0.36) K/mm3 Baso # (Auto) (0.01-0.08) K/mm3 Manual Slide Review Sodium 148 H (136-145) mEq/L Potassium 3.7 (3.5-5.1) mEq/L Chloride 110 H (98-107) mEq/L Carbon Dioxide 28 (21-32) mEq/L Anion Gap 13.7 (5-15) BUN 28 H (7-18) mg/dL Creatinine 1.6 H (0.55-1.02) mg/dL Est Cr Clr Drug Dosing 17.12 mL/min Estimated GFR (MDRD) 30 (>60) mL/min BUN/Creatinine Ratio 17.5 (14-18) Glucose 203 H (83-115) mg/dL POC Glucose (83-110) mg/dL Calcium 9.1 (8.5-10.1) mg/dL Magnesium 2.5 H (1.8-2.4) mg/dl Blood Type O NEGATIVE Med Orders - Current: Current Medications Acetaminophen (Tylenol) 650 mg PO Q4H PRN PRN Reason: Fever Last Admin: 01/09/21 21:00 Dose: 650 mg Documented by: Albuterol/Ipratropium (Duoneb 3.0-0.5 Mg/3 Ml) 3 ml NEB Q4H PRN PRN Reason: Shortness Of Breath/wheezing Calcium Carbonate/Glycine (Tums) 500 mg PO Q4H PRN PRN Reason: Heartburn Cyclobenzaprine HCl (Flexeril) 10 mg PO TID PRN PRN Reason: muscle spasms Last Admin: 01/04/21 12:36 Dose: 10 mg Documented by: Docusate Sodium (Colace) 100 mg PO BID [facility] Last Admin: 01/09/21 20:36 Dose: 100 mg Documented by: Famotidine (Pepcid) 20 mg PO Q48H [facility] Last Admin: 01/08/21 09:08 Dose: 20 mg Documented by: Furosemide (Lasix) 40 mg PO DAILY [facility] Gabapentin (Neurontin) 100 mg PO BID [facility] Last Admin: 01/09/21 20:36 Dose: 100 mg Documented by: Hydralazine HCl (Apresoline) 10 mg IVPUSH Q4H PRN PRN Reason: Hypertension Hydromorphone HCl (Dilaudid) 0.5 mg IVPUSH Q4H PRN PRN Reason: Pain (severe 7-10) Last Admin: 01/06/21 08:18 Dose: 0.5 mg Documented by: Promethazine HCl 12.5 mg/ (Sodium Chloride) 50.5 mls @ 100 mls/hr IV Q6H PRN PRN Reason: Nausea/Vomiting Piperacillin Sod/Tazobactam (Sod 4.5 gm/ Sodium Chloride) 100 mls @ 25 mls/hr IV Q12H [facility] Last Admin: 01/09/21 20:30 Dose: 25 mls/hr Documented by: Potassium Chloride/Dextrose/Sod Cl (D5 1/2 Ns W/ 10 Meq/L Kcl) 1,000 mls @ 50 mls/hr IV ASDIRECTED [facility] Last Admin: 01/09/21 13:21 Dose: 50 mls/hr Documented by: Insulin Glargine (Lantus) 13 unit SUBCUT BID [facility] Last Admin: 01/09/21 21:14 Dose: Not Given Documented by: Insulin Human Lispro (Humalog) 0 unit SUBCUT QIDACANDBED [facility]; Protocol Last Admin: 01/09/21 22:35 Dose: 10 units Documented by: Magnesium Hydroxide (Milk Of Magnesia) 30 ml PO DAILY PRN PRN Reason: Constipation Last Admin: 01/07/21 16:09 Dose: 30 ml Documented by: Metoprolol Succinate (Toprol Xl) 50 mg PO DAILY [facility] Last Admin: 01/09/21 08:43 Dose: 50 mg Documented by: Oxycodone HCl (Oxycodone) 5 mg PO Q6H PRN PRN Reason: Pain (moderate 4-6) Last Admin: 01/08/21 06:56 Dose: 5 mg Documented by: Discontinued Medications Acetaminophen (Tylenol) 650 mg PO Q6H PRN PRN Reason: Pain (Mild 1-3)/fever Last Admin: 01/04/21 12:34 Dose: 650 mg Documented by: Bupivacaine HCl (Marcaine 0.5%) Confirm Administered Dose 30 ml .ROUTE .STK-MED ONE Stop: 01/06/21 09:56 Calcium Carbonate/Glycine (Tums) 400 mg PO Q4H PRN PRN Reason: Heartburn Docusate Sodium (Colace) 100 mg PO BID PRN PRN Reason: Constipation Last Admin: 01/06/21 15:57 Dose: 100 mg Documented by: Famotidine (Pepcid) 20 mg PO DAILY [facility] Last Admin: 01/04/21 09:57 Dose: 20 mg Documented by: Fentanyl (Sublimaze) Confirm Administered Dose 100 mcg .ROUTE .STK-MED ONE Stop: 01/06/21 10:46 Furosemide (Lasix) 40 mg IVPUSH NOW ONE Stop: 01/03/21 21:42 Last Admin: 01/03/21 22:00 Dose: 40 mg Documented by: Furosemide (Lasix) 20 mg PO DAILY [facility] Last Admin: 01/04/21 13:04 Dose: Not Given Documented by: Furosemide (Lasix) 20 mg IVPUSH ONETIME ONE Stop: 01/04/21 18:01 Last Admin: 01/04/21 18:47 Dose: 20 mg Documented by: Furosemide (Lasix) 40 mg IVPUSH NOW ONE Stop: 01/06/21 11:15 Last Admin: 01/06/21 11:22 Dose: 40 mg Documented by: Furosemide (Lasix) 40 mg IVPUSH NOW ONE Stop: 01/07/21 08:13 Last Admin: 01/07/21 08:29 Dose: 40 mg Documented by: Furosemide (Lasix) 40 mg PO DAILY [facility] Last Admin: 01/08/21 09:04 Dose: 40 mg Documented by: Gabapentin (Neurontin) 600 mg PO BID [facility] Last Admin: 01/04/21 08:10 Dose: 600 mg Documented by: Gabapentin (Neurontin) 600 mg PO BID [facility] Last Admin: 01/08/21 09:04 Dose: 600 mg Documented by: Heparin Sodium (Porcine) (Heparin Sodium) 5,000 units SUBCUT Q8H [facility] Stop: 01/05/21 23:00 Last Admin: 01/05/21 21:18 Dose: 5,000 units Documented by: Heparin Sodium (Porcine) (Heparin Sodium) 5,000 units SUBCUT Q8H [facility] Last Admin: 01/09/21 10:58 Dose: 5,000 units Documented by: Hydromorphone HCl (Dilaudid) 0.25 mg IVPUSH ONETIME ONE Stop: 01/03/21 20:02 Last Admin: 01/03/21 20:10 Dose: 0.25 mg Documented by: Hydromorphone HCl (Dilaudid) 0.25 mg IVPUSH ONETIME ONE Stop: 01/03/21 22:22 Last Admin: 01/03/21 23:17 Dose: 0.25 mg Documented by: Sodium Chloride (Normal Saline) 1,000 mls @ 65 mls/hr IV ASDIRECTED [facility] Lactated Ringer's (Ringers, Lactated) 1,000 mls @ 50 mls/hr IV ASDIRECTED [facility] Last Admin: 01/04/21 14:18 Dose: 50 mls/hr Documented by: Lactated Ringer's (Ringers, Lactated) 1,000 mls @ 65 mls/hr IV ASDIRECTED [facility] Last Admin: 01/05/21 06:46 Dose: 65 mls/hr Documented by: Lactated Ringer's (Ringers, Lactated) 1,000 mls @ 100 mls/hr IV ASDIRECTED [facility] Stop: 01/05/21 19:29 Last Admin: 01/05/21 09:44 Dose: 100 mls/hr Documented by: Lactated Ringer's (Ringers, Lactated) 1,000 mls @ 75 mls/hr IV ASDIRECTED [facility] Last Admin: 01/06/21 07:37 Dose: 75 mls/hr Documented by: Piperacillin Sod/Tazobactam (Sod 4.5 gm/ Sodium Chloride) 100 mls @ 25 mls/hr IV Q8H [facility] Piperacillin Sod/Tazobactam (Sod 4.5 gm/ Sodium Chloride) 100 mls @ 200 mls/hr IV ONETIME ONE Stop: 01/07/21 08:29 Last Admin: 01/07/21 08:35 Dose: 200 mls/hr Documented by: Sodium Chloride (Normal Saline) 500 mls @ 45 mls/hr IV ASDIRECTED [facility] Stop: 01/09/21 07:37 Last Admin: 01/08/21 21:56 Dose: 45 mls/hr Documented by: Potassium Chloride 20 meq/ (Dextrose/Water) 1,010 mls @ 50 mls/hr IV ASDIRECTED [facility] Stop: 01/10/21 08:41 Insulin Glargine (Lantus) 15 unit SUBCUT DAILY [facility] Last Admin: 01/07/21 08:01 Dose: Not Given Documented by: Insulin Glargine (Lantus) 7.5 unit SUBCUT ONETIME ONE Stop: 01/07/21 09:01 Last Admin: 01/07/21 08:16 Dose: 7.5 units Documented by: Insulin Glargine (Lantus) 15 unit SUBCUT DAILY [facility] Insulin Glargine (Lantus) 7.5 unit SUBCUT DAILY [facility] Last Admin: 01/08/21 09:06 Dose: 7.5 units Documented by: Insulin Glargine (Lantus) 10 unit SUBCUT BID [facility] Last Admin: 01/09/21 08:36 Dose: 10 units Documented by: Insulin Glargine (Lantus) 10 unit SUBCUT NOW [facility] Stop: 01/08/21 19:06 Last Admin: 01/08/21 19:28 Dose: 10 unit Documented by: Insulin Glargine (Lantus) 5 unit SUBCUT NOW [facility] Stop: 01/09/21 21:12 Last Admin: 01/09/21 22:33 Dose: 5 units Documented by: Insulin Human Lispro (Humalog) 0 unit SUBCUT QIDACANDBED [facility]; Protocol Last Admin: 01/08/21 14:23 Dose: Not Given Documented by: Insulin Human Lispro (Humalog) 0 unit SUBCUT QIDACANDBED [facility]; Protocol Ketamine HCl (Ketalar) Confirm Administered Dose 500 mg .ROUTE .STK-MED ONE Stop: 01/06/21 10:47 Lidocaine HCl (Xylocaine 1%) 10 ml INJECT ONETIME ONE Stop: 01/03/21 18:58 Last Admin: 01/04/21 00:57 Dose: Not Given Documented by: Lidocaine/Epinephrine (Xylocaine-Mpf 2%-Epi 1:200,000) Confirm Administered Dose 20 ml .ROUTE .STK-MED ONE Stop: 01/06/21 10:13 Midazolam HCl (Versed 1 Mg/Ml) Confirm Administered Dose 2 mg .ROUTE .STK-MED ONE Stop: 01/06/21 10:46 Non-Formulary Medication (Insulin Degludec [Tresiba]) 15 unit SQ DAILY [facility] Ondansetron HCl (Zofran) 4 mg IVPUSH ONETIME ONE Stop: 01/03/21 18:48 Last Admin: 01/03/21 18:51 Dose: 4 mg Documented by: Ondansetron HCl (Zofran) Confirm Administered Dose 4 mg .ROUTE .STK-MED ONE Stop: 01/03/21 19:51 Last Admin: 01/03/21 20:11 Dose: Not Given Documented by: Ondansetron HCl (Zofran) 4 mg IVPUSH ONETIME ONE Stop: 01/03/21 20:07 Last Admin: 01/03/21 20:11 Dose: 4 mg Documented by: Potassium Chloride (Klor-Con M20) 40 meq PO DAILY [facility] Stop: 01/09/21 12:25 Last Admin: 01/09/21 13:23 Dose: Not Given Documented by: Potassium Chloride (Klor-Con M20) 40 meq PO ONETIME ONE Stop: 01/09/21 12:39 Last Admin: 01/09/21 13:10 Dose: 40 meq Documented by: Ropivacaine (Naropin 0.5%) Confirm Administered Dose 30 ml .ROUTE .STK-MED ONE Stop: 01/06/21 09:57 Sodium Polystyrene Sulfonate (Kayexalate) 15 gm PO ONETIME ONE Stop: 01/04/21 08:50 Last Admin: 01/04/21 09:57 Dose: 15 gm Documented by: Spironolactone (Aldactone) 50 mg PO DAILY [facility] Last Admin: 01/04/21 08:10 Dose: 50 mg Documented by: Tamsulosin HCl (Flomax) 0.4 mg PO DAILY [facility] Last Admin: 01/04/21 17:44 Dose: Not Given Documented by: - Exam Quality Assessment: Supplemental Oxygen (3L ), Urine Catheter, DVT Prophylaxis General: Alert, Oriented, Cooperative, No Acute Distress HEENT: Pupils Equal, Pupils Reactive, Mucous Membr. Moist/[place] Neck: Supple, Trachea Midline Lungs: Clear to Auscultation, Normal Respiratory Effort, Decreased Breath Sounds Cardiovascular: Regular Rate, Regular Rhythm GI/Abdominal Exam: Normal Bowel Sounds, Soft, Non-Tender, Distended (Female) Exam: Deferred Extremities: No Pedal Edema, Leg Pain (bilateral ), Limited Range of Motion Peripheral Pulses: 2+: Radial (L), Radial (R), Dorsalis Pedis (L), Dorsalis Pedis (R) Skin: Warm, Dry, Intact Neurological: No New Focal Deficit Psy/Mental Status: Alert Sepsis Event Note - Evaluation Sepsis Screening Result: No Definite Risk - Focused Exam Vital Signs: Vital Signs Temp Temp Pulse Resp BP Pulse Ox 01/10/21 04:11 97.5 F 50 L 16 135/46 L 95 01/10/21 00:00 97.8 F 15 01/09/21 23:47 56 L 130/43 L 94 L 01/09/21 22:00 93 L 01/09/21 20:49 98.8 F 64 16 162/44 H 97 - Problem List & Annotations (1) Closed left hip fracture SNOMED Code(s): 713929600 Code(s): S72.002A - FRACTURE OF UNSP PART OF NECK OF LEFT FEMUR, INIT Status: Acute Priority: High Current Visit: Yes Qualifiers: Encounter type: initial encounter Qualified Code(s): S72.002A - Fracture of unspecified part of neck of left femur, initial encounter for closed fracture (2) Anemia SNOMED Code(s): 676812595 Code(s): D64.9 - ANEMIA, UNSPECIFIED Status: Chronic Priority: Medium Current Visit: No Onset Date: 04/30/19 Qualifiers: Anemia type: due to chronic 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) Qualified Code(s): N18.4 - Chronic kidney disease, stage 4 (severe); D63.1 - Anemia in chronic kidney disease Annotation/Comment:: anemia sec to anticoagulation with xarolto / plavix and asa asa held mild bleeding noted from hemmhroids (3) CHF (congestive heart failure), NYHA class II SNOMED Code(s): 854358575, 376523338 Code(s): I50.9 - HEART FAILURE, UNSPECIFIED Status: Chronic Priority: Medium Current Visit: No Onset Date: 05/01/19 Qualifiers: Congestive heart failure type: unspecified Qualified Code(s): I50.9 - Heart failure, unspecified (4) Fall SNOMED Code(s): 9675940, 253242794 Code(s): W19.XXXA - UNSPECIFIED FALL, INITIAL ENCOUNTER Status: Acute Priority: High Current Visit: Yes Qualifiers: Encounter type: subsequent encounter Qualified Code(s): W19.XXXD - Unspecified fall, subsequent encounter (5) DM2 (diabetes mellitus, type 2) SNOMED Code(s): 70982799 Code(s): E11.9 - TYPE 2 DIABETES MELLITUS WITHOUT COMPLICATIONS Status: Chronic Priority: High Current Visit: No Onset Date: 05/02/19 Qualifiers: 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: unspecified longterm insulin use status Diabetes mellitus complication status: with unspecified complications (6) Afib SNOMED Code(s): 75870038 Code(s): I48.91 - UNSPECIFIED ATRIAL FIBRILLATION Status: Chronic Priority: Low Current Visit: No Qualifiers: Atrial fibrillation type: paroxysmal Qualified Code(s): I48.0 - Paroxysmal atrial fibrillation (7) HTN (hypertension) SNOMED Code(s): 56557797 Code(s): I10 - ESSENTIAL (PRIMARY) HYPERTENSION Status: Chronic Priority: Medium Current Visit: No Qualifiers: Hypertension type: unspecified Qualified Code(s): I10 - Essential (primary) hypertension (8) Chronic constipation SNOMED Code(s): 282366342 Code(s): K59.09 - OTHER CONSTIPATION Status: Chronic Priority: Low Current Visit: No (9) Urinary retention SNOMED Code(s): 462523045 Code(s): R33.9 - RETENTION OF URINE, UNSPECIFIED Status: Chronic Pr iority: Low Current Visit: No (10) Chronic back pain SNOMED Code(s): 430453502 Code(s): M54.9 - DORSALGIA, UNSPECIFIED; G89.29 - OTHER CHRONIC PAIN Status: Chronic Priority: Low Current Visit: No Qualifiers: Back pain location: back pain in unspecified location Back pain laterality: unspecified Qualified Code(s): M54.9 - Dorsalgia, unspecified; G89.29 - Other chronic pain (11) History of TIA (transient ischemic attack) SNOMED Code(s): 762046541 Code(s): Z86.73 - PRSNL HX OF TIA (TIA), AND CEREB INFRC W/O RESID DEFICITS Status: Chronic Priority: Low Current Visit: No (12) Depression SNOMED Code(s): 69128923 Code(s): F32.9 - MAJOR DEPRESSIVE DISORDER, SINGLE EPISODE, UNSPECIFIED St atus: Chronic Priority: Low Current Visit: No Qualifiers: Depression Type: other depression Qualified Code(s): F32.89 - Other specified depressive episodes (13) jail resident SNOMED Code(s): 793859684 Code(s): Z59.3 - PROBLEMS RELATED TO LIVING IN RESIDENTIAL INSTITUTION Status: Chronic Priority: Low Current Visit: No (14) Hyperbilirubinemia SNOMED Code(s): 82030266 Code(s): E80.6 - OTHER DISORDERS OF BILIRUBIN METABOLISM Status: Acute Priority: Medium Current Visit: Yes (15) Elevated AST (SGOT) SNOMED Code(s): 099725548 Code(s): R74.01 - ELEVATION OF LEVELS OF LIVER TRANSAMINASE LEVELS Status: Acute Priority: Medium Current Visit: Yes (16) Elevated ALT measurement SNOMED Code(s): 034096724 Code(s): R74.01 - ELEVATION OF LEVELS OF LIVER TRANSAMINASE LEVELS Status: Acute Priority: Medium Current Visit: Yes (17) Acute on chronic renal failure SNOMED Code(s): 341280525 Code(s): N17.9 - ACUTE KIDNEY FAILURE, UNSPECIFIED; N18.9 - CHRONIC KIDNEY DISEASE, UNSPECIFIED Status: Acute Priority: High Current Visit: Yes Qualifiers: 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) Qualified Code(s): N17.2 - Acute kidney failure with medullary necrosis; N18.4 - Chronic kidney disease, stage 4 (severe) (18) Hyperkalemia SNOMED Code(s): 54309578 Code(s): E87.5 - HYPERKALEMIA Status: Resolved Priority: High Current Visit: Yes (19) Fluid overload SNOMED Code(s): 63809366 Code(s): E87.70 - FLUID OVERLOAD, UNSPECIFIED Status: Acute Priority: High Current Visit: Yes Qualifiers: Hypervolemia type: unspecified Qualified Code(s): E87.70 - Fluid overload, unspecified (20) Acute respiratory failure SNOMED Code(s): 72438405 Code(s): J96.00 - ACUTE RESPIRATORY FAILURE, UNSP W HYPOXIA OR HYPERCAPNIA Status: Acute Current Visit: Yes (21) Elevated brain natriuretic peptide (BNP) level SNOMED Code(s): 092377535, 931452867 Code(s): R79.89 - OTHER SPECIFIED ABNORMAL FINDINGS OF BLOOD CHEMISTRY Status: Acute Current Visit: Yes (22) Pneumonia SNOMED Code(s): 263843068 Code(s): J18.9 - PNEUMONIA, UNSPECIFIED ORGANISM Status: Acute Priority: High Current Visit: Yes Qualifiers: Pneumonia type: due to unspecified organism Laterality: right Lung location: upper lobe of lung Qualified Code(s): J18.9 - Pneumonia, unspecified organism Annotation/Comment:: very slow improvmetna nd continued atelectasis and pleural effusion left (23) UTI (urinary tract infection) SNOMED Code(s): 45135170 Code(s): N39.0 - URINARY TRACT INFECTION, SITE NOT SPECIFIED Status: Acute Priority: High Current Visit: Yes Qualifiers: Urinary tract infection type: acute cystitis Hematuria presence: without hematuria Qualified Code(s): N30.00 - Acute cystitis without hematuria - Problem List Review Problem List Initiated/Reviewed/Updated: Yes - Assessment Assessment:: Assessment - Day of admission 01/04/21 (admitted late 01/03/21) * 89 Yo female who presents after fall at SNF resulting in left hip and elbow pain * Unknown why she fell. Hit head. Skin tear on left elbow * Left leg externally rotated and shortened * 12-lead EKG shows NSR at 81 BPM with a first degree AV block. * Head CT shows air-fluid levels in right maxillary sinus and senescent change. Nothing acute * Left hip X-ray suspicious for fracture * Left elbow x-ray shows nothing acute * 4cm skin tear on left elbow with skin missing repaired with steri-strips and gauze * Left Hip CT shows acute complex proximal left femoral fracture * Predominant fracture line appears to be predominantly basocervical oblique however a fracture line extends superolaterally anteriorly transcervically. * Fracture lines involving the greater trochanter as well. * There is some angulation and overriding of the fracture fragments. * CXR shows nothing acute * Dr. Huertas, orthopedic surgeon consulted by ED - plans for surgery on 01/06/21 due to patient being on Plavix\ * Given Dilaudid for pain and Zofran for nausea * Labs: * WBC 16.81 --> 18.22 * hemoglobin 13.6 --> 13.9 * platelet 232 --> 189 * neutrophils 13.83 --> 16.37 * INR 0.96 * sodium 143 --> 140 * potassium 4.7 --> 5.5 * anion gap 14.7 --> 17.5 * BUN 25 --> 29 * creatinine 2.1 --> 2.3 * GFR 20 ---> 20 * glucose 91 --> 267 * magnesium 2.4 * total bilirubin 0.5 --> 1.3 * AST 38 ---> 192 * ALT 32 --> 327 * alkaline phosphatase 77 --> 113 * troponin less than 0.017 * proBNP 136 --> 335 * albumin 3.6 --> 3.6 * UA negative but trace leukocyte esterase, 5-10 hyaline casts, and many bacteria noted * SARS Covid 2 RNA negative * MRSA negative * urine culture pending 01/05/21 * Continued left hip pain with movement. No pain when laying still. * Left elbow bandage noted to be saturated with drainage. Nursing will change * Up to 3 L of oxygen via nasal cannula. Has been utilizing I-S. * Renal function has been getting progressively worse. Will increase IV fluids and monitor. * Transaminitis is improving and bilirubin is trending downward. * Continue plan for surgery tomorrow. * Labs today: * WBC 14.15 * hemoglobin 12.0 * platelet 158 * neutrophils 10.94 * sodium 142 * potassium 4.1 * anion gap 13.1 * BUN 37, creatinine 2.6, GFR 17 * bilirubin 1.2 * AST 149, ALT 226, alk phos 87 * albumin 3.0 01/06/21 * Continued left hip pain with movement. No pain when laying still. * Left elbow bandage dry and intact * Up to 6 liters of oxygen per nasal cannula. O2 saturations ranged from 88 to 90%. Has been utilizing I-S. * IV fluids stopped as patient is having worsening O2 saturations consistent with congestive heart failure. * Transaminitis is improving and bilirubin is trending downward. * Surgery postponed until Sunday * Labs today: * WBC 14.15-->13.02 * hemoglobin 12.0-->10.7 * sodium 142-->143 * potassium 4.1 * BUN 37, creatinine 2.6, GFR 17-->BUN 34, Creat 2.1 * Intake and output showed a +1536 * Portable view of the chest radiologist impression: 1. Increased density within the right upper chest either due to pneumonia or changes of aspiration. 2. Mild atelectasis within both lung bases. 3. Increased central lung markings possibly due to acute or chronic pulmonary vascular congestion * Surgery postponed until Sunday. 01/07/21 * Continues to have left hip pain with movement 2/2 fracture * Planned surgical fixation on 01/10/21 * Down to 3L via NC * UTI growing >100 CFUs aerococcus urinae * Started zosyn due to questionable aspiration PNA and UTI * Given 40mg IVP lasix today * Echo ordered due to history of prior CHF - Diastolic HF noted from 12/14 * Labs: * WBC 14.20 * Hgb 11.1 * Potassium 3.9 * BUN 34, Creatinine 1.8, GFR 36 01/08/2021 * Continues current treatment * Hold parameters for cyclobenzaprine and gabapentin * Cut down Gabapentin dose to 100 po BID due to oversedation and * Incentive spirometer as directed with beside pulmonary exercise * Routine AM Labs * Hold lasix for now * Encourage to eat and drink fluids * Lantus 10 units subQ BID * DVT and GI prophylaxis: Heparin and H2B * Code status: DNR/DNI * LOS> 96hrs due to complexity of acute illness 01/09/2021 * Continues current treatment * Continue hold parameters for cyclobenzaprine and gabapentin * Incentive spirometer as directed with beside pulmonary exercise * Routine AM Labs * Continue to hold lasix * Encourage to eat and drink fluids * May consider going up on Lantus to 13 units subQ BID since she is eating more * KCl 40 mEq po and 20 mEq IV x1 * D51/2 at 50 cc for hypernatremia * Repeat BMP at 1600 * Hold Heparin dose tonight * DVT and GI prophylaxis: Heparin and H2B * Code status: DNR/DNI * LOS> 96hrs due to complexity of acute illness 01/10/2021 * Scheduled for surgery this afternoon * Continues IS with pulmonary exercises * Lantus increased to 13 units BID yesterday with medium SS insulin * NPO today * Labs today: * WBC 9.64 * Hgb 10.7 * Sodium 148 * Potasium 3.7 * BUN 28, Creatinine 1.6, GFR 30, * Glucose 203 * Magnesium 2.5 * Resume diabetic diet after surgery * Discuss VTE for tomorrow post-operatively * Continue zosyn for UTI and possible PNA * Continue current treatment plan - Plan Plan:: Closed left hip fracture [facility] * Pain medications as ordered * Bedrest until after surgery * Blackman until post surgical * Flexeril as ordered * PT/OT * CM/SW for discharge planning * Dr. Huertas, orthopedic surgeon consulted in ED * Planning surgery on 01/10/21 (wait due to decreasing O2 saturations) * Hold home Plavix * Heparin/SCDs for VTE; will hold next dose tonight for AM surgery * IS * Optimize for surgery * Ice pack as needed * Nursing staff to reposition every 2 hours * High risk for cardio-pulmonary event for intermediate surgical risk; daughter Lisbeth is aware Acute respiratory failure, 3-4L NC CHF exacerbation CHF (congestive heart failure), NYHA class II Elevated Pro-BNP Fluid overload Hypoalbuminemia with Albumin of 2.6 Questionable pneumonia * Review old echo * New echocardiogram obtained * Stop fluids - renal function improved * Already on Zosyn for antibiotic coverage * Incentive spirometer and bedside pulmonary exercise UTI Leukocytosis, slightly worse * Zosyn Q8 HR * WBC is 9.64 today * Treat underlying cause Elevated ALT measurement, continues to improve * Avoid tylenol * Re-check labs and monitor Acute on chronic renal failure, improved hypokalemia with K of 3.4 Mild Hypernatremia with sodium of 150, slightly worse Hypermagnesemia with Mg of 2.5 * IV fluids discontinued due to worsening heart failure * Avoid nephrotoxic medications * She is getting zosyn and a little too much protein supplements * Cut down supplements and protein shakes * Continue to hold lasix and encourage to drink fluids DM2 (diabetes mellitus, type 2), remains uncontrolled * Lantus (sub for Tresiba) - will cut dose by half due to minimal PO intake-->increase LA to 13 units SubQ BID * Low dose scale humalog (down from medium dose due to poor PO intake)--> increased back to Medium dose * QID AC and bedtime blood glucose checks * Consistent carbohydrate diet Anemia Afib HTN (hypertension) Chronic constipation Urinary retention Chronic back pain History of TIA (transient ischemic attack) Depression * Review/reconcile home medications * Telemetry * PRN stool softeners Resolved: Hyperkalemia Hyperbilirubinemia Elevated AST (SGOT) Code status: DNR/DNI PCP: Dr. Winchester DVT prophylaxis: Heparin/SCDs Social: Patient resides in [facility] Disposition: Patient admitted inpatient with telemetry for surgical management of left hip fracture on 01/06/21. Postponed until January 10, 2021 LOS >96 hrs due to delay in surgery for CHF/PNA/UTI treatment. <Danilo Sanches T - Last Filed: 01/10/21 20:47> - Patient Data Vitals - Most Recent: Last Vital Signs Temp 36.6 C 01/10/21 19:43 Pulse 82 01/10/21 19:43 Resp 20 01/10/21 19:43 BP 114/71 01/10/21 19:43 Pulse Ox 95 01/10/21 20:28 I&O - Last 24 Hours: Intake & Output 01/10/21 01/10/21 01/10/21 06:59 14:59 22:59 Intake Total 825 770 Output Total 825 60 Balance 0 710 Lab Results Last 24 Hours: Laboratory Results - last 24 hr 01/09/21 01/10/21 01/10/21 Range/Units 20:39 06:17 06:20 WBC 9.64 (3.98-10.04) K/mm3 RBC 3.52 L (3.98-5.22) M/mm3 Hgb 10.7 L (11.2-15.7) gm/dl Hct 34.5 (34.1-44.9) % MCV 98.0 H (79.4-94.8) fl MCH 30.4 (25.6-32.2) pg MCHC 31.0 L (32.2-35.5) g/dl RDW Std Deviation 52.0 H (36.4-46.3) fL Plt Count 189 (182-369) K/mm3 MPV 11.2 (9.4-12.3) fl Neut % (Auto) 69.9 (34.0-71.1) % Lymph % (Auto) 17.4 L (19.3-51.7) % [place] % (Auto) 8.5 (4.7-12.5) % Eos % (Auto) 2.1 (0.7-5.8) Baso % (Auto) 0.4 (0.1-1.2) % Neut # (Auto) 6.74 H (1.56-6.13) K/mm3 Lymph # (Auto) 1.68 (1.18-3.74) K/mm3 [place] # (Auto) 0.82 H (0.24-0.36) K/mm3 Eos # (Auto) 0.20 (0.04-0.36) K/mm3 Baso # (Auto) 0.04 (0.01-0.08) K/mm3 Manual Slide Review Normal smear Sodium (136-145) mEq/L Potassium (3.5-5.1) mEq/L Chloride (98-107) mEq/L Carbon Dioxide (21-32) mEq/L Anion Gap (5-15) BUN (7-18) mg/dL Creatinine (0.55-1.02) mg/dL Est Cr Clr Drug Dosing mL/min Estimated GFR (MDRD) (>60) mL/min BUN/Creatinine Ratio (14-18) Glucose (83-115) mg/dL POC Glucose 367 H 223 H (83-110) mg/dL Calcium (8.5-10.1) mg/dL Magnesium (1.8-2.4) mg/dl Blood Type Gel Antibody Screen 01/10/21 01/10/21 01/10/21 Range/Units 06:20 06:20 11:08 WBC (3.98-10.04) K/mm3 RBC (3.98-5.22) M/mm3 Hgb (11.2-15.7) gm/dl Hct (34.1-44.9) % MCV (79.4-94.8) fl MCH (25.6-32.2) pg MCHC (32.2-35.5) g/dl RDW Std Deviation (36.4-46.3) fL Plt Count (182-369) K/mm3 MPV (9.4-12.3) fl Neut % (Auto) (34.0-71.1) % Lymph % (Auto) (19.3-51.7) % [place] % (Auto) (4.7-12.5) % Eos % (Auto) (0.7-5.8) Baso % (Auto) (0.1-1.2) % Neut # (Auto) (1.56-6.13) K/mm3 Lymph # (Auto) (1.18-3.74) K/mm3 [place] # (Auto) (0.24-0.36) K/mm3 Eos # (Auto) (0.04-0.36) K/mm3 Baso # (Auto) (0.01-0.08) K/mm3 Manual Slide Review Sodium 148 H (136-145) mEq/L Potassium 3.7 (3.5-5.1) mEq/L Chloride 110 H (98-107) mEq/L Carbon Dioxide 28 (21-32) mEq/L Anion Gap 13.7 (5-15) BUN 28 H (7-18) mg/dL Creatinine 1.6 H (0.55-1.02) mg/dL Est Cr Clr Drug Dosing 17.12 mL/min Estimated GFR (MDRD) 30 (>60) mL/min BUN/Creatinine Ratio 17.5 (14-18) Glucose 203 H (83-115) mg/dL POC Glucose 236 H (83-110) mg/dL Calcium 9.1 (8.5-10.1) mg/dL Magnesium 2.5 H (1.8-2.4) mg/dl Blood Type O NEGATIVE Gel Antibody Screen Negative 01/10/21 01/10/21 Range/Units 16:09 17:27 WBC (3.98-10.04) K/mm3 RBC (3.98-5.22) M/mm3 Hgb (11.2-15.7) gm/dl Hct (34.1-44.9) % MCV (79.4-94.8) fl MCH (25.6-32.2) pg MCHC (32.2-35.5) g/dl RDW Std Deviation (36.4-46.3) fL Plt Count (182-369) K/mm3 MPV (9.4-12.3) fl Neut % (Auto) (34.0-71.1) % Lymph % (Auto) (19.3-51.7) % [place] % (Auto) (4.7-12.5) % Eos % (Auto) (0.7-5.8) Baso % (Auto) (0.1-1.2) % Neut # (Auto) (1.56-6.13) K/mm3 Lymph # (Auto) (1.18-3.74) K/mm3 [place] # (Auto) (0.24-0.36) K/mm3 Eos # (Auto) (0.04-0.36) K/mm3 Baso # (Auto) (0.01-0.08) K/mm3 Manual Slide Review Sodium (136-145) mEq/L Potassium (3.5-5.1) mEq/L Chloride (98-107) mEq/L Carbon Dioxide (21-32) mEq/L Anion Gap (5-15) BUN (7-18) mg/dL Creatinine (0.55-1.02) mg/dL Est Cr Clr Drug Dosing mL/min Estimated GFR (MDRD) (>60) mL/min BUN/Creatinine Ratio (14-18) Glucose (83-115) mg/dL POC Glucose 277 H 333 H (83-110) mg/dL Calcium (8.5-10.1) mg/dL Magnesium (1.8-2.4) mg/dl Blood Type Gel Antibody Screen Med Orders - Current: Current Medications Acetaminophen (Tylenol) 650 mg PO Q4H PRN PRN Reason: Fever Last Admin: 01/09/21 21:00 Dose: 650 mg Documented by: Albuterol/Ipratropium (Duoneb 3.0-0.5 Mg/3 Ml) 3 ml NEB Q4H PRN PRN Reason: Shortness Of Breath/wheezing Calcium Carbonate/Glycine (Tums) 500 mg PO Q4H PRN PRN Reason: Heartburn Cyclobenzaprine HCl (Flexeril) 10 mg PO TID PRN PRN Reason: muscle spasms Last Admin: 01/04/21 12:36 Dose: 10 mg Documented by: Docusate Sodium (Colace) 100 mg PO BID [facility] Last Admin: 01/10/21 08:39 Dose: 100 mg Documented by: Famotidine (Pepcid) 20 mg PO Q48H [facility] Last Admin: 01/10/21 08:39 Dose: 20 mg Documented by: Furosemide (Lasix) 40 mg PO DAILY [facility] Last Admin: 01/10/21 08:40 Dose: 40 mg Documented by: Gabapentin (Neurontin) 100 mg PO BID [facility] Last Admin: 01/10/21 08:39 Dose: 100 mg Documented by: Hydralazine HCl (Apresoline) 10 mg IVPUSH Q4H PRN PRN Reason: Hypertension Hydromorphone HCl (Dilaudid) 0.5 mg IVPUSH Q4H PRN PRN Reason: Pain (severe 7-10) Last Admin: 01/06/21 08:18 Dose: 0.5 mg Documented by: Promethazine HCl 12.5 mg/ (Sodium Chloride) 50.5 mls @ 100 mls/hr IV Q6H PRN PRN Reason: Nausea/Vomiting Piperacillin Sod/Tazobactam (Sod 4.5 gm/ Sodium Chloride) 100 mls @ 25 mls/hr IV Q12H [facility] Last Admin: 01/10/21 08:36 Dose: 25 mls/hr Documented by: Potassium Chloride/Dextrose/Sod Cl (D5 1/2 Ns W/ 10 Meq/L Kcl) 1,000 mls @ 50 mls/hr IV ASDIRECTED [facility] Last Admin: 01/10/21 09:08 Dose: 50 mls/hr Documented by: Insulin Glargine (Lantus) 13 unit SUBCUT BID [facility] Last Admin: 01/10/21 10:31 Dose: 13 units Documented by: Insulin Human Lispro (Humalog) 0 unit SUBCUT QIDACANDBED [facility]; Protocol Last Admin: 01/10/21 18:48 Dose: 8 units Documented by: Magnesium Hydroxide (Milk Of Magnesia) 30 ml PO DAILY PRN PRN Reason: Constipation Last Admin: 01/07/21 16:09 Dose: 30 ml Documented by: Metoprolol Succinate (Toprol Xl) 50 mg PO DAILY [facility] Last Admin: 01/10/21 10:57 Dose: 50 mg Documented by: Oxycodone HCl (Oxycodone) 5 mg PO Q6H PRN PRN Reason: Pain (moderate 4-6) Last Admin: 01/08/21 06:56 Dose: 5 mg Documented by: Discontinued Medications Acetaminophen (Tylenol) 650 mg PO Q6H PRN PRN Reason: Pain (Mild 1-3)/fever Last Admin: 01/04/21 12:34 Dose: 650 mg Documented by: Bupivacaine HCl (Marcaine 0.5%) Confirm Administered Dose 0 ml .ROUTE .STK-MED ONE Stop: 01/06/21 09:56 Bupivacaine HCl (Sensorcaine-Mpf 0.25%) Confirm Administered Dose 0 ml .ROUTE .STK-MED ONE Stop: 01/10/21 12:57 Bupivacaine HCl (Sensorcaine-Mpf 0.25%) Confirm Administered Dose 30 ml .ROUTE .STK-MED ONE Stop: 01/10/21 13:29 Calcium Carbonate/Glycine (Tums) 400 mg PO Q4H PRN PRN Reason: Heartburn Dexamethasone (Dexamethasone) Confirm Administered Dose 20 mg .ROUTE .STK-MED ONE Stop: 01/10/21 13:46 Dexmedetomidine HCl (Precedex) Confirm Administered Dose 200 mcg .ROUTE .STK-MED ONE Stop: 01/10/21 12:35 Docusate Sodium (Colace) 100 mg PO BID PRN PRN Reason: Constipation Last Admin: 01/06/21 15:57 Dose: 100 mg Documented by: Famotidine (Pepcid) 20 mg PO DAILY [facility] Last Admin: 01/04/21 09:57 Dose: 20 mg Documented by: Fentanyl (Sublimaze) Confirm Administered Dose 0 mcg .ROUTE .STK-MED ONE Stop: 01/06/21 10:46 Fentanyl (Sublimaze) Confirm Administered Dose 100 mcg .ROUTE .STK-MED ONE Stop: 01/10/21 12:53 Furosemide (Lasix) 40 mg IVPUSH NOW ONE Stop: 01/03/21 21:42 Last Admin: 01/03/21 22:00 Dose: 40 mg Documented by: Furosemide (Lasix) 20 mg PO DAILY [facility] Last Admin: 01/04/21 13:04 Dose: Not Given Documented by: Furosemide (Lasix) 20 mg IVPUSH ONETIME ONE Stop: 01/04/21 18:01 Last Admin: 01/04/21 18:47 Dose: 20 mg Documented by: Furosemide (Lasix) 40 mg IVPUSH NOW ONE Stop: 01/06/21 11:15 Last Admin: 01/06/21 11:22 Dose: 40 mg Documented by: Furosemide (Lasix) 40 mg IVPUSH NOW ONE Stop: 01/07/21 08:13 Last Admin: 01/07/21 08:29 Dose: 40 mg Documented by: Furosemide (Lasix) 40 mg PO DAILY [facility] Last Admin: 01/08/21 09:04 Dose: 40 mg Documented by: Gabapentin (Neurontin) 600 mg PO BID [facility] Last Admin: 01/04/21 08:10 Dose: 600 mg Documented by: Gabapentin (Neurontin) 600 mg PO BID [facility] Last Admin: 01/08/21 09:04 Dose: 600 mg Documented by: Heparin Sodium (Porcine) (Heparin Sodium) 5,000 units SUBCUT Q8H [facility] Stop: 01/05/21 23:00 Last Admin: 01/05/21 21:18 Dose: 5,000 units Documented by: Heparin Sodium (Porcine) (Heparin Sodium) 5,000 units SUBCUT Q8H [facility] Last Admin: 01/09/21 10:58 Dose: 5,000 units Documented by: Hydromorphone HCl (Dilaudid) 0.25 mg IVPUSH ONETIME ONE Stop: 01/03/21 20:02 Last Admin: 01/03/21 20:10 Dose: 0.25 mg Documented by: Hydromorphone HCl (Dilaudid) 0.25 mg IVPUSH ONETIME ONE Stop: 01/03/21 22:22 Last Admin: 01/03/21 23:17 Dose: 0.25 mg Documented by: Sodium Chloride (Normal Saline) 1,000 mls @ 65 mls/hr IV ASDIRECTED [facility] Lactated Ringer's (Ringers, Lactated) 1,000 mls @ 50 mls/hr IV ASDIRECTED [facility] Last Admin: 01/04/21 14:18 Dose: 50 mls/hr Documented by: Lactated Ringer's (Ringers, Lactated) 1,000 mls @ 65 mls/hr IV ASDIRECTED [facility] Last Admin: 01/05/21 06:46 Dose: 65 mls/hr Documented by: Lactated Ringer's (Ringers, Lactated) 1,000 mls @ 100 mls/hr IV ASDIRECTED [facility] Stop: 01/05/21 19:29 Last Admin: 01/05/21 09:44 Dose: 100 mls/hr Documented by: Lactated Ringer's (Ringers, Lactated) 1,000 mls @ 75 mls/hr IV ASDIRECTED [facility] Last Admin: 01/06/21 07:37 Dose: 75 mls/hr Documented by: Piperacillin Sod/Tazobactam (Sod 4.5 gm/ Sodium Chloride) 100 mls @ 25 mls/hr IV Q8H [facility] Piperacillin Sod/Tazobactam (Sod 4.5 gm/ Sodium Chloride) 100 mls @ 200 mls/hr IV ONETIME ONE Stop: 01/07/21 08:29 Last Admin: 01/07/21 08:35 Dose: 200 mls/hr Documented by: Sodium Chloride (Normal Saline) 500 mls @ 45 mls/hr IV ASDIRECTED [facility] Stop: 01/09/21 07:37 Last Admin: 01/08/21 21:56 Dose: 45 mls/hr Documented by: Potassium Chloride 20 meq/ (Dextrose/Water) 1,010 mls @ 50 mls/hr IV ASDIRECTED [facility] Stop: 01/10/21 08:41 Lidocaine HCl (Xylocaine-Mpf 1%) Confirm Administered Dose 4 mls @ as directed .ROUTE .STK-MED ONE Stop: 01/10/21 12:54 Insulin Glargine (Lantus) 15 unit SUBCUT DAILY [facility] Last Admin: 01/07/21 08:01 Dose: Not Given Documented by: Insulin Glargine (Lantus) 7.5 unit SUBCUT ONETIME ONE Stop: 01/07/21 09:01 Last Admin: 01/07/21 08:16 Dose: 7.5 units Documented by: Insulin Glargine (Lantus) 15 unit SUBCUT DAILY [facility] Insulin Glargine (Lantus) 7.5 unit SUBCUT DAILY [facility] Last Admin: 01/08/21 09:06 Dose: 7.5 units Documented by: Insulin Glargine (Lantus) 10 unit SUBCUT BID [facility] Last Admin: 01/09/21 08:36 Dose: 10 units Documented by: Insulin Glargine (Lantus) 10 unit SUBCUT NOW [facility] Stop: 01/08/21 19:06 Last Admin: 01/08/21 19:28 Dose: 10 unit Documented by: Insulin Glargine (Lantus) 5 unit SUBCUT NOW [facility] Stop: 01/09/21 21:12 Last Admin: 01/09/21 22:33 Dose: 5 units Documented by: Insulin Human Lispro (Humalog) 0 unit SUBCUT QIDACANDBED [facility]; Protocol Last Admin: 01/08/21 14:23 Dose: Not Given Documented by: Insulin Human Lispro (Humalog) 0 unit SUBCUT QIDACANDBED [facility]; Protocol Ketamine HCl (Ketalar) Confirm Administered Dose 0 mg .ROUTE .STK-MED ONE Stop: 01/06/21 10:47 Ketamine HCl (Ketalar) Confirm Administered Dose 500 mg .ROUTE .STK-MED ONE Stop: 01/10/21 12:54 Lidocaine HCl (Xylocaine 1%) 10 ml INJECT ONETIME ONE Stop: 01/03/21 18:58 Last Admin: 01/04/21 00:57 Dose: Not Given Documented by: Lidocaine/Epinephrine (Xylocaine-Mpf 2%-Epi 1:200,000) Confirm Administered Dose 20 ml .ROUTE .STK-MED ONE Stop: 01/06/21 10:13 Metoprolol Tartrate (Lopressor) 5 mg IVPUSH Q5M PRN PRN Reason: Hypertension Stop: 01/10/21 18:00 Last Admin: 01/10/21 16:21 Dose: 1 mg Documented by: Midazolam HCl (Versed 1 Mg/Ml) Confirm Administered Dose 0 mg .ROUTE .STK-MED ONE Stop: 01/06/21 10:46 Midazolam HCl (Versed 1 Mg/Ml) Confirm Administered Dose 2 mg .ROUTE .STK-MED ONE Stop: 01/10/21 12:54 Non-Formulary Medication (Insulin Degludec [Tresiba]) 15 unit SQ DAILY [facility] Ondansetron HCl (Zofran) 4 mg IVPUSH ONETIME ONE Stop: 01/03/21 18:48 Last Admin: 01/03/21 18:51 Dose: 4 mg Documented by: Ondansetron HCl (Zofran) Confirm Administered Dose 4 mg .ROUTE .STK-MED ONE Stop: 01/03/21 19:51 Last Admin: 01/03/21 20:11 Dose: Not Given Documented by: Ondansetron HCl (Zofran) 4 mg IVPUSH ONETIME ONE Stop: 01/03/21 20:07 Last Admin: 01/03/21 20:11 Dose: 4 mg Documented by: Potassium Chloride (Klor-Con M20) 40 meq PO DAILY [facility] Stop: 01/09/21 12:25 Last Admin: 01/09/21 13:23 Dose: Not Given Documented by: Potassium Chloride (Klor-Con M20) 40 meq PO ONETIME ONE Stop: 01/09/21 12:39 Last Admin: 01/09/21 13:10 Dose: 40 meq Documented by: Propofol (Diprivan 20 Ml) Confirm Administered Dose 200 mg .ROUTE .STK-MED ONE Stop: 01/10/21 12:54 Ropivacaine (Naropin 0.5%) Confirm Administered Dose 30 ml .ROUTE .STK-MED ONE Stop: 01/06/21 09:57 Ropivacaine (Naropin 0.5%) Confirm Administered Dose 30 ml .ROUTE .STK-MED ONE Stop: 01/10/21 12:35 Sodium Polystyrene Sulfonate (Kayexalate) 15 gm PO ONETIME ONE Stop: 01/04/21 08:50 Last Admin: 01/04/21 09:57 Dose: 15 gm Documented by: Spironolactone (Aldactone) 50 mg PO DAILY [facility] Last Admin: 01/04/21 08:10 Dose: 50 mg Documented by: Tamsulosin HCl (Flomax) 0.4 mg PO DAILY [facility] Last Admin: 01/04/21 17:44 Dose: Not Given Documented by: Sepsis Event Note - Focused Exam Vital Signs: Vital Signs Temp Temp Pulse Pulse Resp BP BP 01/10/21 20:28 01/10/21 19:43 36.6 C 82 20 114/71 01/10/21 16:58 36.7 C 73 16 142/110 H 01/10/21 16:30 36.4 C 78 17 143/67 H 01/10/21 16:25 83 20 113/96 H 01/10/21 16:21 82 171/60 H 01/10/21 16:18 87 20 171/60 H 01/10/21 16:15 90 90 19 153/56 H 153/56 H 01/10/21 16:00 94 19 170/95 H 01/10/21 15:45 36.7 C 95 20 171/60 H 01/10/21 15:30 94 20 156/91 H 01/10/21 15:15 37.1 C 71 19 145/53 H 01/10/21 11:15 36.7 C 58 L 20 152/125 H 01/10/21 10:57 65 142/56 H Pulse Ox Pulse Ox 01/10/21 20:28 95 01/10/21 19:43 94 L 01/10/21 16:58 87 L 01/10/21 16:30 94 L 01/10/21 16:25 92 L 01/10/21 16:21 01/10/21 16:18 93 L 01/10/21 16:15 95 01/10/21 16:00 95 01/10/21 15:45 96 01/10/21 15:30 94 L 01/10/21 15:15 95 95 01/10/21 11:15 93 L 01/10/21 10:57 - My Orders Last 24 Hours: My Active Orders 01/09/21 21:00 Insulin Glarg,Human.Rec.Analog [LantUS] 13 unit SUBCUT BID 01/10/21 09:00 Furosemide [Lasix] 40 mg PO DAILY 01/10/21 20:10 BASIC METABOLIC PANEL,BMP [CHEM] Routine 01/11/21 05:11 BMP [BASIC METABOLIC PANEL,BMP] [CHEM] AM CBC WITH AUTO DIFF [HEME] AM MAGNESIUM [CHEM] AM 01/12/21 05:11 BMP [BASIC METABOLIC PANEL,BMP] [CHEM] AM CBC WITH AUTO DIFF [HEME] AM MAGNESIUM [CHEM] AM - Plan Plan:: 2039: Post surgical assessment. She is alert and fully awake. No complaints of pain and vitals are stable. Updated daughter Lisbeth about her post surgical progress.
[2021-01-10] MEDS: Piperacillin/Tazobactam 4.5 GM in Sodium Chloride 0.9% 100 ML IV SCH ×2 (08:36→21:02)
[2021-01-10] MEDS: Docusate Sodium 100 MG Cap PO SCH ×2 (08:39→21:03)
[2021-01-10] MEDS: Famotidine 20 MG Tab PO SCH (08:39)
[2021-01-10] MEDS: Gabapentin 100 MG Cap PO SCH ×2 (08:39→21:03)
[2021-01-10] MEDS: Furosemide 40 MG Tab PO SCH (08:40)
[2021-01-10] MEDS: Metoprolol Succinate 50 MG Tab.ER PO SCH ×2 (08:44→10:57)
[2021-01-10] MEDS: D5 1/2 NS w/ 10 mEq/L KCl 1,000 ML IV SCH (09:08)
[2021-01-10] MEDS: Insulin Glarg,Human.Rec.Analog 100 Unit/ML SUBCUT SCH ×2 (10:31→21:03)
[2021-01-10] MEDS ORDERED: Dexmedetomidine 200 MCG/2 ML SDV ONE (12:34)
[2021-01-10] MEDS ORDERED: Ropivacaine 0.5% 5 MG/ML 30 ML SDV ONE (12:34)
[2021-01-10] MEDS ORDERED: fentaNYL 100 MCG/2 ML SDV ONE (12:52)
[2021-01-10] MEDS ORDERED: Midazolam 1 MG/ML 2 ML SDV ONE (12:53)
[2021-01-10] MEDS ORDERED: Ketamine 500 mg/10 ML MDV ONE (12:53)
[2021-01-10] MEDS ORDERED: Propofol 200 MG/20 ML SDV ONE (12:53)
[2021-01-10] MEDS ORDERED: Lidocaine 1% 4 ML ONE (12:53)
[2021-01-10] MEDS ORDERED: Bupivacaine 0.25% 10 ML SDV ONE ×2 (12:56→13:28)
[2021-01-10] MEDS ORDERED: Dexamethasone 4 MG/ML 5 ML MDV ONE (13:45)
--- NOTE | 2021-01-10 15:54 | PCM.POSTAN ---
POST ANESTHESIA ASSESSMENT - MENTAL STATUS Mental Status: Alert, Oriented - VITAL SIGNS Vital Signs: Last Vital Signs Temp 98.7 F 01/10/21 15:15 Pulse 71 01/10/21 15:15 Resp 19 01/10/21 15:15 BP 145/53 H 01/10/21 15:15 Pulse Ox 95 01/10/21 15:15 - RESPIRATORY Respiratory Status: Respiratory Rate WNL, Airway Patent, O2 Saturation Stable, Supplemental Oxygen - CARDIOVASCULAR CV Status: Pulse Rate WNL, Blood Pressure Stable - GASTROINTESTINAL GI Status: No Symptoms - PAIN Pain Score: 0 (post SAB) - POST OP HYDRATION Hydration Status: Adequate & Stable
--- NOTE | 2021-01-10 16:07 | PCM.PRNOTE ---
- Free Text/Narrative Note: Postoperative pain control requested by the surgeon. Patient's Dx: Left intertrochanteric hip fracture. Surgery: Left Gamma nail intramedullary nailing. Procedure: Left Fascia iliaca nerve block with supplementary pericapsular injection under U/S guidance Requesting surgeon: Dr. Turner Ct Risks and benefits discussed with the patient and her POA previously as part of preoperative assessment, including Rt. leg weakness x 24 hrs., block failure, groin pain. As the surgery is being postponed due to the patients general and respiratory deterioration, this block is being performed to help with pain coverage. Patient in PACU bay postoperatively, alert, awake and comfortable, monitors applied. Time out performed. Oxygen 4L via NC. Left groin area was prepped with Chloraprep x 1 and allowed to dry. The Left femoral nerve and artery were identified under ultrasound prior to needle insertion. The probe then been moved into longitudinal position and fascia iliaca covering iliopsoas muscle has been identified. 4" Stimuplex needle #20 G was inserted under US guidance. Needle penetration through fascia angelito and fascia iliaca observed. Under direct visualization of needle tip the injection of 0.5% Ropivacaine with 1:200,000 epinephrine (15 mls) and 10 ml of 2% Lidocaine with 1:200,000 epinephrine with 6 mg of Dexamethasone and 30 mcg of Dexmedetomidine in divided doses maintaining negative aspiration was completed without problems as the spread of local anesthetic been observed under fascia iliaca in cephalad direction. Then the probe and needle were redirected , and the femoral vessels and iliopsoas muscle were identified again at the groin area. Under direct visualization of needle tip the injection of 0.5% Ropivacaine with 1:200,000 epinephrine (15 mls) and 10 ml of 2% Lidocaine with 1:200,000 epinephrine with 6 mg of Dexamethasone and 30 mcg of Dexmedetomidine in divided doses maintaining negative aspiration was completed without problems as the spread was observed below the iliopsoas muscle and iliopubic eminence. No local anesthetic toxicity was noted. Patient has tolerated the procedure well. Please see the attached U/S image Time: 15:25 - 15:42
[2021-01-10] MEDS: Metoprolol Tartrate 5 MG/5 ML SDV IVPUSH PRN ×2 (16:15→16:21)
--- NOTE | 2021-01-10 18:16 | CR ---
Left femur: AP and lateral views of the left femur were obtained. Comparison: Prior operative study performed earlier on the same day as well as previous left hip study of 01/03/21. Short intramedullary katey and compression screw are seen within the left hip. Skin candida are present. Osseous structures are intact. Impression: 1. Prior left hip surgery. 2. No additional abnormality is appreciated on left femur study. Diagnostic code #2
[2021-01-10] MEDS: oxyCODONE 5 MG Tab PO PRN (21:07)
[2021-01-11] MEDS: Acetaminophen 325 MG Tab PO PRN ×3 (00:46→23:08)
[2021-01-11] MEDS: oxyCODONE 5 MG Tab PO PRN ×4 (00:47→23:09)
[2021-01-11] MEDS: Cyclobenzaprine 10 MG Tab PO PRN ×2 (00:47→20:09)
[2021-01-11] MEDS: HYDROmorphone 0.5 MG/0.5 ML Syringe IVPUSH PRN (02:51)
--- NOTE | 2021-01-11 07:07 | PCM48HPAN ---
Post Anesthesia Note - EVALUATION WITHIN 48HRS OF ANESTHETIC Vital Signs in Normal Range: Yes Patient Participated in Evaluation: No Respiratory Function Stable: Yes Airway Patent: Yes Cardiovascular Function Stable: Yes Hydration Status Stable: Yes Pain Control Satisfactory: No Nausea and Vomiting Control Satisfactory: Yes Vital Signs: Last Vital Signs Temp 36.4 C 01/11/21 04:00 Pulse 52 L 01/11/21 04:00 Resp 16 01/11/21 04:00 BP 123/39 L 01/11/21 04:00 Pulse Ox 96 01/11/21 06:12 - COMMENTS/OBSERVATIONS Free Text/Narrative:: After visiting with medical clinic manager nurse, patient did not sleep well last night. Patient more awake, brushing teeth etc... as compared to last week, but pain management is being worked on. Nurse encouraged to update Dr. Huertas/ paul Krueger regarding patient's status. Patient sitting up in chair when assessed this am. Patient appears very tired, and no conversing noted at this time. Gabriela REYNOSO
--- NOTE | 2021-01-11 07:33 | PCM.PN ---
- General Info Date of Service: 01/11/21 Admission Dx/Problem (Free Text): Admission Diagnosis/Problem Admission Diagnosis/Problem Hip fracture requiring operative repair Subjective Update: In to see Suma. She is sitting up in the chair and is quite sleepy. Per david rbuce she was up very late last night and has been doing quite well moving. Blackman catheter was removed at 6 AM this morning. She reports right hip pain due to sitting up in the chair. Otherwise she is doing quite well. Discussed anticoagulation with orthopedics and will start 81 mg twice daily aspirin and resume patient's home Plavix dose. Hopeful for return to SNF tomorrow pending PT/OT evaluation. Functional Status: Reports: Pain Controlled, Tolerating Diet, Ambulating, Urinating - Review of Systems General: Reports: No Symptoms, Weakness, Fatigue. Denies: Fever, Malaise, Chills HEENT: Reports: No Symptoms. Denies: Headaches, Sore Throat Pulmonary: Reports: No Symptoms. Denies: Shortness of Breath, Cough, Sputum, Wheezing Cardiovascular: Reports: No Symptoms. Denies: Chest Pain, Palpitations, Dyspnea on Exertion Gastrointestinal: Reports: No Symptoms. Denies: Abdominal Pain, Constipation, Diarrhea, Nausea, Vomiting Genitourinary: Reports: No Symptoms Musculoskeletal: Reports: Joint Pain (right hip) Skin: Reports: No Symptoms. Denies: Cyanosis Neurological: Reports: Pre-Existing Deficit, Difficulty Walking, Weakness, Gait Disturbance. Denies: Confusion Psychiatric: Reports: No Symptoms - Patient Data Vitals - Most Recent: Last Vital Signs Temp 97.5 F 01/11/21 04:00 Pulse 52 L 01/11/21 04:00 Resp 16 01/11/21 04:00 BP 123/39 L 01/11/21 04:00 Pulse Ox 96 01/11/21 06:12 Weight - Most Recent: 162 lb 3.2 oz I&O - Last 24 Hours: Intake & Output 01/10/21 01/11/21 01/11/21 22:59 06:59 14:59 Intake Total 770 1148 Output Total 60 625 Balance 710 523 Lab Results Last 24 Hours: Laboratory Results - last 24 hr 01/10/21 01/10/21 01/10/21 Range/Units 11:08 16:09 17:27 WBC (3.98-10.04) K/mm3 RBC (3.98-5.22) M/mm3 Hgb (11.2-15.7) gm/dl Hct (34.1-44.9) % MCV (79.4-94.8) fl MCH (25.6-32.2) pg MCHC (32.2-35.5) g/dl RDW Std Deviation (36.4-46.3) fL Plt Count (182-369) K/mm3 MPV (9.4-12.3) fl Neut % (Auto) (34.0-71.1) % Lymph % (Auto) (19.3-51.7) % [place] % (Auto) (4.7-12.5) % Eos % (Auto) (0.7-5.8) Baso % (Auto) (0.1-1.2) % Neut # (Auto) (1.56-6.13) K/mm3 Lymph # (Auto) (1.18-3.74) K/mm3 [place] # (Auto) (0.24-0.36) K/mm3 Eos # (Auto) (0.04-0.36) K/mm3 Baso # (Auto) (0.01-0.08) K/mm3 Manual Slide Review Sodium (136-145) mEq/L Potassium (3.5-5.1) mEq/L Chloride (98-107) mEq/L Carbon Dioxide (21-32) mEq/L Anion Gap (5-15) BUN (7-18) mg/dL Creatinine (0.55-1.02) mg/dL Est Cr Clr Drug Dosing mL/min Estimated GFR (MDRD) (>60) mL/min BUN/Creatinine Ratio (14-18) Glucose (83-115) mg/dL POC Glucose 236 H 277 H 333 H (83-110) mg/dL Calcium (8.5-10.1) mg/dL Magnesium (1.8-2.4) mg/dl 01/10/21 01/11/21 01/11/21 Range/Units 20:10 04:43 04:43 WBC 14.01 H (3.98-10.04) K/mm3 RBC 3.40 L (3.98-5.22) M/mm3 Hgb 10.2 L (11.2-15.7) gm/dl Hct 32.4 L (34.1-44.9) % MCV 95.3 H (79.4-94.8) fl MCH 30.0 (25.6-32.2) pg MCHC 31.5 L (32.2-35.5) g/dl RDW Std Deviation 49.5 H (36.4-46.3) fL Plt Count 222 (182-369) K/mm3 MPV 11.5 (9.4-12.3) fl Neut % (Auto) 87.1 H (34.0-71.1) % Lymph % (Auto) 7.6 L (19.3-51.7) % [place] % (Auto) 3.7 L (4.7-12.5) % Eos % (Auto) 0.1 L (0.7-5.8) Baso % (Auto) 0.1 (0.1-1.2) % Neut # (Auto) 12.22 H (1.56-6.13) K/mm3 Lymph # (Auto) 1.06 L (1.18-3.74) K/mm3 [place] # (Auto) 0.52 H (0.24-0.36) K/mm3 Eos # (Auto) 0.01 L (0.04-0.36) K/mm3 Baso # (Auto) 0.01 (0.01-0.08) K/mm3 Manual Slide Review Normal smear Sodium 136 D 138 (136-145) mEq/L Potassium 4.0 4.3 (3.5-5.1) mEq/L Chloride 100 101 (98-107) mEq/L Carbon Dioxide 25 25 (21-32) mEq/L Anion Gap 15.0 16.3 H (5-15) BUN 27 H 30 H (7-18) mg/dL Creatinine 1.8 H 1.7 H (0.55-1.02) mg/dL Est Cr Clr Drug Dosing 15.22 16.11 mL/min Estimated GFR (MDRD) 26 28 (>60) mL/min BUN/Creatinine Ratio 15.0 17.6 (14-18) Glucose 473 H 303 H (83-115) mg/dL POC Glucose (83-110) mg/dL Calcium 8.6 8.9 (8.5-10.1) mg/dL Magnesium 2.2 (1.8-2.4) mg/dl Med Orders - Current: Current Medications Acetaminophen (Tylenol) 650 mg PO Q4H PRN PRN Reason: Pain/Fever Last Admin: 01/11/21 00:46 Dose: 650 mg Documented by: Albuterol/Ipratropium (Duoneb 3.0-0.5 Mg/3 Ml) 3 ml NEB Q4H PRN PRN Reason: Shortness Of Breath/wheezing Calcium Carbonate/Glycine (Tums) 500 mg PO Q4H PRN PRN Reason: Heartburn Cyclobenzaprine HCl (Flexeril) 10 mg PO TID PRN PRN Reason: muscle spasms Last Admin: 01/11/21 00:47 Dose: 10 mg Documented by: Docusate Sodium (Colace) 100 mg PO BID [facility] Last Admin: 01/10/21 21:03 Dose: 100 mg Documented by: Famotidine (Pepcid) 20 mg PO Q48H [facility] Last Admin: 01/10/21 08:39 Dose: 20 mg Documented by: Furosemide (Lasix) 40 mg PO DAILY [facility] Last Admin: 01/10/21 08:40 Dose: 40 mg Documented by: Gabapentin (Neurontin) 100 mg PO BID [facility] Last Admin: 01/10/21 21:03 Dose: 100 mg Documented by: Hydralazine HCl (Apresoline) 10 mg IVPUSH Q4H PRN PRN Reason: Hypertension Hydromorphone HCl (Dilaudid) 0.5 mg IVPUSH Q4H PRN PRN Reason: Pain (severe 7-10) Last Admin: 01/11/21 02:51 Dose: 0.5 mg Documented by: Promethazine HCl 12.5 mg/ (Sodium Chloride) 50.5 mls @ 100 mls/hr IV Q6H PRN PRN Reason: Nausea/Vomiting Piperacillin Sod/Tazobactam (Sod 4.5 gm/ Sodium Chloride) 100 mls @ 25 mls/hr IV Q12H [facility] Last Admin: 01/10/21 21:02 Dose: 25 mls/hr Documented by: Insulin Glargine (Lantus) 15 unit SUBCUT BID [facility] Insulin Human Lispro (Humalog) 0 unit SUBCUT QIDACANDBED [facility]; Protocol Last Admin: 01/10/21 21:04 Dose: 10 units Documented by: Magnesium Hydroxide (Milk Of Magnesia) 30 ml PO DAILY PRN PRN Reason: Constipation Last Admin: 01/07/21 16:09 Dose: 30 ml Documented by: Metoprolol Succinate (Toprol Xl) 50 mg PO DAILY [facility] Last Admin: 01/10/21 10:57 Dose: 50 mg Documented by: Oxycodone HCl (Oxycodone) 5 mg PO Q6H PRN PRN Reason: Pain (moderate 4-6) Last Admin: 01/11/21 00:47 Dose: 5 mg Documented by: Discontinued Medications Acetaminophen (Tylenol) 650 mg PO Q6H PRN PRN Reason: Pain (Mild 1-3)/fever Last Admin: 01/04/21 12:34 Dose: 650 mg Documented by: Acetaminophen (Tylenol) 650 mg PO Q4H PRN PRN Reason: Fever Last Admin: 01/09/21 21:00 Dose: 650 mg Documented by: Bupivacaine HCl (Marcaine 0.5%) Confirm Administered Dose 0 ml .ROUTE .STK-MED ONE Stop: 01/06/21 09:56 Bupivacaine HCl (Sensorcaine-Mpf 0.25%) Confirm Administered Dose 0 ml .ROUTE .STK-MED ONE Stop: 01/10/21 12:57 Bupivacaine HCl (Sensorcaine-Mpf 0.25%) Confirm Administered Dose 30 ml .ROUTE .STK-MED ONE Stop: 01/10/21 13:29 Calcium Carbonate/Glycine (Tums) 400 mg PO Q4H PRN PRN Reason: Heartburn Dexamethasone (Dexamethasone) Confirm Administered Dose 20 mg .ROUTE .STK-MED ONE Stop: 01/10/21 13:46 Dexmedetomidine HCl (Precedex) Confirm Administered Dose 200 mcg .ROUTE .STK-MED ONE Stop: 01/10/21 12:35 Docusate Sodium (Colace) 100 mg PO BID PRN PRN Reason: Constipation Last Admin: 01/06/21 15:57 Dose: 100 mg Documented by: Famotidine (Pepcid) 20 mg PO DAILY [facility] Last Admin: 01/04/21 09:57 Dose: 20 mg Documented by: Fentanyl (Sublimaze) Confirm Administered Dose 0 mcg .ROUTE .STK-MED ONE Stop: 01/06/21 10:46 Fentanyl (Sublimaze) Confirm Administered Dose 100 mcg .ROUTE .STK-MED ONE Stop: 01/10/21 12:53 Furosemide (Lasix) 40 mg IVPUSH NOW ONE Stop: 01/03/21 21:42 Last Admin: 01/03/21 22:00 Dose: 40 mg Documented by: Furosemide (Lasix) 20 mg PO DAILY [facility] Last Admin: 01/04/21 13:04 Dose: Not Given Documented by: Furosemide (Lasix) 20 mg IVPUSH ONETIME ONE Stop: 01/04/21 18:01 Last Admin: 01/04/21 18:47 Dose: 20 mg Documented by: Furosemide (Lasix) 40 mg IVPUSH NOW ONE Stop: 01/06/21 11:15 Last Admin: 01/06/21 11:22 Dose: 40 mg Documented by: Furosemide (Lasix) 40 mg IVPUSH NOW ONE Stop: 01/07/21 08:13 Last Admin: 01/07/21 08:29 Dose: 40 mg Documented by: Furosemide (Lasix) 40 mg PO DAILY [facility] Last Admin: 01/08/21 09:04 Dose: 40 mg Documented by: Gabapentin (Neurontin) 600 mg PO BID [facility] Last Admin: 01/04/21 08:10 Dose: 600 mg Documented by: Gabapentin (Neurontin) 600 mg PO BID [facility] Last Admin: 01/08/21 09:04 Dose: 600 mg Documented by: Heparin Sodium (Porcine) (Heparin Sodium) 5,000 units SUBCUT Q8H [facility] Stop: 01/05/21 23:00 Last Admin: 01/05/21 21:18 Dose: 5,000 units Documented by: Heparin Sodium (Porcine) (Heparin Sodium) 5,000 units SUBCUT Q8H [facility] Last Admin: 01/09/21 10:58 Dose: 5,000 units Documented by: Hydromorphone HCl (Dilaudid) 0.25 mg IVPUSH ONETIME ONE Stop: 01/03/21 20:02 Last Admin: 01/03/21 20:10 Dose: 0.25 mg Documented by: Hydromorphone HCl (Dilaudid) 0.25 mg IVPUSH ONETIME ONE Stop: 01/03/21 22:22 Last Admin: 01/03/21 23:17 Dose: 0.25 mg Documented by: Sodium Chloride (Normal Saline) 1,000 mls @ 65 mls/hr IV ASDIRECTED [facility] Lactated Ringer's (Ringers, Lactated) 1,000 mls @ 50 mls/hr IV ASDIRECTED [facility] Last Admin: 01/04/21 14:18 Dose: 50 mls/hr Documented by: Lactated Ringer's (Ringers, Lactated) 1,000 mls @ 65 mls/hr IV ASDIRECTED [facility] Last Admin: 01/05/21 06:46 Dose: 65 mls/hr Documented by: Lactated Ringer's (Ringers, Lactated) 1,000 mls @ 100 mls/hr IV ASDIRECTED [facility] Stop: 01/05/21 19:29 Last Admin: 01/05/21 09:44 Dose: 100 mls/hr Documented by: Lactated Ringer's (Ringers, Lactated) 1,000 mls @ 75 mls/hr IV ASDIRECTED [facility] Last Admin: 01/06/21 07:37 Dose: 75 mls/hr Documented by: Piperacillin Sod/Tazobactam (Sod 4.5 gm/ Sodium Chloride) 100 mls @ 25 mls/hr IV Q8H [facility] Piperacillin Sod/Tazobactam (Sod 4.5 gm/ Sodium Chloride) 100 mls @ 200 mls/hr IV ONETIME ONE Stop: 01/07/21 08:29 Last Admin: 01/07/21 08:35 Dose: 200 mls/hr Documented by: Sodium Chloride (Normal Saline) 500 mls @ 45 mls/hr IV ASDIRECTED [facility] Stop: 01/09/21 07:37 Last Admin: 01/08/21 21:56 Dose: 45 mls/hr Documented by: Potassium Chloride 20 meq/ (Dextrose/Water) 1,010 mls @ 50 mls/hr IV ASDIRECTED [facility] Stop: 01/10/21 08:41 Potassium Chloride/Dextrose/Sod Cl (D5 1/2 Ns W/ 10 Meq/L Kcl) 1,000 mls @ 50 mls/hr IV ASDIRECTED [facility] Last Admin: 01/10/21 09:08 Dose: 50 mls/hr Documented by: Lidocaine HCl (Xylocaine-Mpf 1%) Confirm Administered Dose 4 mls @ as directed .ROUTE .STK-MED ONE Stop: 01/10/21 12:54 Insulin Glargine (Lantus) 15 unit SUBCUT DAILY [facility] Last Admin: 01/07/21 08:01 Dose: Not Given Documented by: Insulin Glargine (Lantus) 7.5 unit SUBCUT ONETIME ONE Stop: 01/07/21 09:01 Last Admin: 01/07/21 08:16 Dose: 7.5 units Documented by: Insulin Glargine (Lantus) 15 unit SUBCUT DAILY [facility] Insulin Glargine (Lantus) 7.5 unit SUBCUT DAILY [facility] Last Admin: 01/08/21 09:06 Dose: 7.5 units Documented by: Insulin Glargine (Lantus) 10 unit SUBCUT BID [facility] Last Admin: 01/09/21 08:36 Dose: 10 units Documented by: Insulin Glargine (Lantus) 10 unit SUBCUT NOW [facility] Stop: 01/08/21 19:06 Last Admin: 01/08/21 19:28 Dose: 10 unit Documented by: Insulin Glargine (Lantus) 13 unit SUBCUT BID [facility] Last Admin: 01/10/21 21:03 Dose: 13 units Documented by: Insulin Glargine (Lantus) 5 unit SUBCUT NOW [facility] Stop: 01/09/21 21:12 Last Admin: 01/09/21 22:33 Dose: 5 units Documented by: Insulin Human Lispro (Humalog) 0 unit SUBCUT QIDACANDBED [facility]; Protocol Last Admin: 01/08/21 14:23 Dose: Not Given Documented by: Insulin Human Lispro (Humalog) 0 unit SUBCUT QIDACANDBED [facility]; Protocol Ketamine HCl (Ketalar) Confirm Administered Dose 0 mg .ROUTE .STK-MED ONE Stop: 01/06/21 10:47 Ketamine HCl (Ketalar) Confirm Administered Dose 500 mg .ROUTE .STK-MED ONE Stop: 01/10/21 12:54 Lidocaine HCl (Xylocaine 1%) 10 ml INJECT ONETIME ONE Stop: 01/03/21 18:58 Last Admin: 01/04/21 00:57 Dose: Not Given Documented by: Lidocaine/Epinephrine (Xylocaine-Mpf 2%-Epi 1:200,000) Confirm Administered Dose 20 ml .ROUTE .STK-MED ONE Stop: 01/06/21 10:13 Metoprolol Tartrate (Lopressor) 5 mg IVPUSH Q5M PRN PRN Reason: Hypertension Stop: 01/10/21 18:00 Last Admin: 01/10/21 16:21 Dose: 1 mg Documented by: Midazolam HCl (Versed 1 Mg/Ml) Confirm Administered Dose 0 mg .ROUTE .STK-MED ONE Stop: 01/06/21 10:46 Midazolam HCl (Versed 1 Mg/Ml) Confirm Administered Dose 2 mg .ROUTE .STK-MED ONE Stop: 01/10/21 12:54 Non-Formulary Medication (Insulin Degludec [Tresiba]) 15 unit SQ DAILY [facility] Ondansetron HCl (Zofran) 4 mg IVPUSH ONETIME ONE Stop: 01/03/21 18:48 Last Admin: 01/03/21 18:51 Dose: 4 mg Documented by: Ondansetron HCl (Zofran) Confirm Administered Dose 4 mg .ROUTE .STK-MED ONE Stop: 01/03/21 19:51 Last Admin: 01/03/21 20:11 Dose: Not Given Documented by: Ondansetron HCl (Zofran) 4 mg IVPUSH ONETIME ONE Stop: 01/03/21 20:07 Last Admin: 01/03/21 20:11 Dose: 4 mg Documented by: Potassium Chloride (Klor-Con M20) 40 meq PO DAILY [facility] Stop: 01/09/21 12:25 Last Admin: 01/09/21 13:23 Dose: Not Given Documented by: Potassium Chloride (Klor-Con M20) 40 meq PO ONETIME ONE Stop: 01/09/21 12:39 Last Admin: 01/09/21 13:10 Dose: 40 meq Documented by: Propofol (Diprivan 20 Ml) Confirm Administered Dose 200 mg .ROUTE .STK-MED ONE Stop: 01/10/21 12:54 Ropivacaine (Naropin 0.5%) Confirm Administered Dose 30 ml .ROUTE .STK-MED ONE Stop: 01/06/21 09:57 Ropivacaine (Naropin 0.5%) Confirm Administered Dose 30 ml .ROUTE .STK-MED ONE Stop: 01/10/21 12:35 Sodium Polystyrene Sulfonate (Kayexalate) 15 gm PO ONETIME ONE Stop: 01/04/21 08:50 Last Admin: 01/04/21 09:57 Dose: 15 gm Documented by: Spironolactone (Aldactone) 50 mg PO DAILY [facility] Last Admin: 01/04/21 08:10 Dose: 50 mg Documented by: Tamsulosin HCl (Flomax) 0.4 mg PO DAILY [facility] Last Admin: 01/04/21 17:44 Dose: Not Given Documented by: - Exam Quality Assessment: Supplemental Oxygen, DVT Prophylaxis General: Alert, Oriented, Cooperative, No Acute Distress HEENT: Pupils Equal, Pupils Reactive, Mucous Membr. Moist/[place] Neck: Supple, Trachea Midline Lungs: Clear to Auscultation, Normal Respiratory Effort, Decreased Breath Sounds Cardiovascular: Regular Rate, Regular Rhythm GI/Abdominal Exam: Normal Bowel Sounds, Soft, Non-Tender, No Distention (Female) Exam: Deferred Back Exam: Normal Inspection, Decreased Range of Motion Extremities: Leg Pain, Limited Range of Motion, Other (Bandage in place on right leg ) Peripheral Pulses: 2+: Radial (L), Radial (R), Dorsalis Pedis (L), Dorsalis Pedis (R) Skin: Warm, Dry, Intact Wound/Incisions: Dressing Dry and Intact Neurological: No New Focal Deficit Psy/Mental Status: Alert Sepsis Event Note - Evaluation Sepsis Screening Result: No Definite Risk - Focused Exam Vital Signs: Vital Signs Temp Temp Pulse Pulse Resp BP BP 01/11/21 06:12 01/11/21 04:00 97.5 F 52 L 16 123/39 L 01/11/21 00:00 97.5 F 59 L 18 136/96 H 01/10/21 22:00 01/10/21 21:00 01/10/21 20:28 01/10/21 19:43 97.9 F 82 20 114/71 Pulse Ox Pulse Ox 01/11/21 06:12 96 01/11/21 04:00 100 01/11/21 00:00 92 L 01/10/21 22:00 94 L 01/10/21 21:00 94 L 01/10/21 20:28 95 01/10/21 19:43 94 L - Problem List & Annotations (1) Closed left hip fracture SNOMED Code(s): 632170891 Code(s): S72.002A - FRACTURE OF UNSP PART OF NECK OF LEFT FEMUR, INIT Status: Acute Priority: High Current Visit: Yes Qualifiers: Encounter type: initial encounter Qualified Code(s): S72.002A - Fracture of unspecified part of neck of left femur, initial encounter for closed fracture (2) Anemia SNOMED Code(s): 909936641 Code(s): D64.9 - ANEMIA, UNSPECIFIED Status: Chronic Priority: Medium Current Visit: No Onset Date: 04/30/19 Qualifiers: Anemia type: due to chronic 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) Qualified Code(s): N18.4 - Chronic kidney disease, stage 4 (severe); D63.1 - Anemia in chronic kidney disease Annotation/Comment:: anemia sec to anticoagulation with xarolto / plavix and asa asa held mild bleeding noted from hemmhroids (3) CHF (congestive heart failure), NYHA class II SNOMED Code(s): 784926857, 580782343 Code(s): I50.9 - HEART FAILURE, UNSPECIFIED Status: Chronic Priority: Medium Current Visit: No Onset Date: 05/01/19 Qualifiers: Congestive heart failure type: unspecified Qualified Code(s): I50.9 - Heart failure, unspecified (4) Fall SNOMED Code(s): 0973650, 628134946 Code(s): W19.XXXA - UNSPECIFIED FALL, INITIAL ENCOUNTER Status: Acute Priority: High Current Visit: Yes Qualifiers: Encounter type: subsequent encounter Qualified Code(s): W19.XXXD - Unspecified fall, subsequent encounter (5) DM2 (diabetes mellitus, type 2) SNOMED Code(s): 92003831 Code(s): E11.9 - TYPE 2 DIABETES MELLITUS WITHOUT COMPLICATIONS Status: Chronic Priority: High Current Visit: No Onset Date: 05/02/19 Qualifiers: Diabetes mellitus 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 insulin use: unspecified 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 insulin use status Diabetes mellitus complication status: with unspecified complications (6) Afib SNOMED Code(s): 66698018 Code(s): I48.91 - UNSPECIFIED ATRIAL FIBRILLATION Status: Chronic Priority: Low Current Visit: No Qualifiers: Atrial fibrillation type: paroxysmal Qualified Code(s): I48.0 - Paroxysmal atrial fibrillation (7) HTN (hypertension) SNOMED Code(s): 49740415 Code(s): I10 - ESSENTIAL (PRIMARY) HYPERTENSION Status: Chronic Priority: Medium Current Visit: No Qualifiers: Hypertension type: unspecified Qualified Code(s): I10 - Essential (primary) hypertension (8) Chronic constipation SNOMED Code(s): 722002177 Code(s): K59.09 - OTHER CONSTIPATION Status: Chronic Priority: Low Current Visit: No (9) Urinary retention SNOMED Code(s): 825326903 Code(s): R33.9 - RETENTION OF URINE, UNSPECIFIED Status: Chronic Priority: Low Current Visit: No (10) Chronic back pain SNOMED Code(s): 627648120 Code(s): M54.9 - DORSALGIA, UNSPECIFIED; G89.29 - OTHER CHRONIC PAIN Status: Chronic Priority: Low Current Visit: No Qualifiers: Back pain location: back pain in unspecified location Back pain laterality: unspecified Qualified Code(s): M54.9 - Dorsalgia, unspecified; G89.29 - Other chronic pain (11) History of TIA (transient ischemic attack) SNOMED Code(s): 725879807 Code(s): Z86.73 - PRSNL HX OF TIA (TIA), AND CEREB INFRC W/O RESID DEFICITS Status: Chronic Priority: Low Current Visit: No (12) Depression SNOMED Code(s): 20664080 Code(s): F32.9 - MAJOR DEPRESSIVE DISORDER, SINGLE EPISODE, UNSPECIFIED Status: Chronic Priority: Low Current Visit: No Qualifiers: Depression Type: other depression Qualified Code(s): F32.89 - Other specified depressive episodes (13) shelter resident SNOMED Code(s): 043627756 Code(s): Z59.3 - PROBLEMS RELATED TO LIVING IN RESIDENTIAL INSTITUTION Status: Chronic Priority: Low Current Visit: No (14) Hyperbilirubinemia SNOMED Code(s): 56486835 Code(s): E80.6 - OTHER DISORDERS OF BILIRUBIN METABOLISM Status: Acute Priority: Medium Current Visit: Yes (15) Elevated AST (SGOT) SNOMED Code(s): 460175860 Code(s): R74.01 - ELEVATION OF LEVELS OF LIVER TRANSAMINASE LEVELS Status: Acute Priority: Medium Current Visit: Yes (16) Elevated ALT measurement SNOMED Code(s): 100470448 Code(s): R74.01 - ELEVATION OF LEVELS OF LIVER TRANSAMINASE LEVELS Status: Acute Priority: Medium Current Visit: Yes (17) Acute on chronic renal failure SNOMED Code(s): 209944903 Code(s): N17.9 - ACUTE KIDNEY FAILURE, UNSPECIFIED; N18.9 - CHRONIC KIDNEY DISEASE, UNSPECIFIED Status: Acute Priority: High Current Visit: Yes Qualifiers: 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) Qualified Code(s): N17.2 - Acute kidney failure with medullary necrosis; N18.4 - Chronic kidney disease, stage 4 (severe) (18) Hyperkalemia SNOMED Code(s): 08336765 Code(s): E87.5 - HYPERKALEMIA Status: Resolved Priority: High Current Visit: Yes (19) Fluid overload SNOMED Code(s): 26667559 Code(s): E87.70 - FLUID OVERLOAD, UNSPECIFIED Status: Resolved Priority: High Current Visit: Yes Qualifiers: Hypervolemia type: unspecified Qualified Code(s): E87.70 - Fluid overload, unspecified (20) Acute respiratory failure SNOMED Code(s): 03677538 Code(s): J96.00 - ACUTE RESPIRATORY FAILURE, UNSP W HYPOXIA OR HYPERCAPNIA Status: Acute Current Visit: Yes (21) Elevated brain natriuretic peptide (BNP) level SNOMED Code(s): 019058046, 539440459 Code(s): R79.89 - OTHER SPECIFIED ABNORMAL FINDINGS OF BLOOD CHEMISTRY Status: Acute Current Visit: Yes (22) Pneumonia SNOMED Code(s): 380348439 Code(s): J18.9 - PNEUMONIA, UNSPECIFIED ORGANISM Status: Acute Priority: High Current Visit: Yes Qualifiers: Pneumonia type: due to unspecified organism Laterality: right Lung location: upper lobe of lung Qualified Code(s): J18.9 - Pneumonia, unspecified organism Annotation/Comment:: very slow improvmetna nd continued atelectasis and pleural effusion left (23) UTI (urinary tract infection) SNOMED Code(s): 26670411 Code(s): N39.0 - URINARY TRACT INFECTION, SITE NOT SPECIFIED Status: Acute Priority: High Current Visit: Yes Qualifiers: Urinary tract infection type: acute cystitis Hematuria presence: without hematuria Qualified Code(s): N30.00 - Acute cystitis without hematuria (24) Status post-operative repair of closed fracture of left hip SNOMED Code(s): 758006344 Code(s): Z98.890 - OTHER SPECIFIED POSTPROCEDURAL STATES; Z87.81 - PERSONAL HISTORY OF (HEALED) TRAUMATIC FRACTURE Status: Acute Current Visit: Yes - Problem List Review Problem List Initiated/Reviewed/Updated: Yes - My Orders Last 24 Hours: My Active Orders 01/10/21 17:13 MCKAY Hose [Antiembolic Hose] [OM.PC] Routine 01/10/21 18:58 Patient Status [ADT] Routine 01/11/21 Breakfast Consistent Carbohydrate Diet [DIET] Thickened Liquids [DIET] - Assessment Assessment:: Assessment - Day of admission 01/04/21 (admitted late 01/03/21) * 89 Yo female who presents after fall at SNF resulting in left hip and elbow pain * Unknown why she fell. Hit head. Skin tear on left elbow * Left leg externally rotated and shortened * 12-lead EKG shows NSR at 81 BPM with a first degree AV block. * Head CT shows air-fluid levels in right maxillary sinus and senescent change. Nothing acute * Left hip X-ray suspicious for fracture * Left elbow x-ray shows nothing acute * 4cm skin tear on left elbow with skin missing repaired with steri-strips and gauze * Left Hip CT shows acute complex proximal left femoral fracture * Predominant fracture line appears to be predominantly basocervical oblique however a fracture line extends superolaterally anteriorly transcervically. * Fracture lines involving the greater trochanter as well. * There is some angulation and overriding of the fracture fragments. * CXR shows nothing acute * Dr. Huertas, orthopedic surgeon consulted by ED - plans for surgery on 01/06/21 due to patient being on Plavix\ * Given Dilaudid for pain and Zofran for nausea * Labs: * WBC 16.81 --> 18.22 * hemoglobin 13.6 --> 13.9 * platelet 232 --> 189 * neutrophils 13.83 --> 16.37 * INR 0.96 * sodium 143 --> 140 * potassium 4.7 --> 5.5 * anion gap 14.7 --> 17.5 * BUN 25 --> 29 * creatinine 2.1 --> 2.3 * GFR 20 ---> 20 * glucose 91 --> 267 * magnesium 2.4 * total bilirubin 0.5 --> 1.3 * AST 38 ---> 192 * ALT 32 --> 327 * alkaline phosphatase 77 --> 113 * troponin less than 0.017 * proBNP 136 --> 335 * albumin 3.6 --> 3.6 * UA negative but trace leukocyte esterase, 5-10 hyaline casts, and many bacteria noted * SARS Covid 2 RNA negative * MRSA negative * urine culture pending 01/05/21 * Continued left hip pain with movement. No pain when laying still. * Left elbow bandage noted to be saturated with drainage. Nursing will change * Up to 3 L of oxygen via nasal cannula. Has been utilizing I-S. * Renal function has been getting progressively worse. Will increase IV fluids and monitor. * Transaminitis is improving and bilirubin is trending downward. * Continue plan for surgery tomorrow. * Labs today: * WBC 14.15 * hemoglobin 12.0 * platelet 158 * neutrophils 10.94 * sodium 142 * potassium 4.1 * anion gap 13.1 * BUN 37, creatinine 2.6, GFR 17 * bilirubin 1.2 * AST 149, ALT 226, alk phos 87 * albumin 3.0 01/06/21 * Continued left hip pain with movement. No pain when laying still. * Left elbow bandage dry and intact * Up to 6 liters of oxygen per nasal cannula. O2 saturations ranged from 88 to 90%. Has been utilizing I-S. * IV fluids stopped as patient is having worsening O2 saturations consistent with congestive heart failure. * Transaminitis is improving and bilirubin is trending downward. * Surgery postponed until Sunday * Labs today: * WBC 14.15-->13.02 * hemoglobin 12.0-->10.7 * sodium 142-->143 * potassium 4.1 * BUN 37, creatinine 2.6, GFR 17-->BUN 34, Creat 2.1 * Intake and output showed a +1536 * Portable view of the chest radiologist impression: 1. Increased density within the right upper chest either due to pneumonia or changes of aspiration. 2. Mild atelectasis within both lung bases. 3. Increased central lung markings possibly due to acute or chronic pulmonary vascular congestion * Surgery postponed until Sunday. 01/07/21 * Continues to have left hip pain with movement 2/2 fracture * Planned surgical fixation on 01/10/21 * Down to 3L via NC * UTI growing >100 CFUs aerococcus urinae * Started zosyn due to questionable aspiration PNA and UTI * Given 40mg IVP lasix today * Echo ordered due to history of prior CHF - Diastolic HF noted from 12/14 * Labs: * WBC 14.20 * Hgb 11.1 * Potassium 3.9 * BUN 34, Creatinine 1.8, GFR 36 01/08/2021 * Continues current treatment * Hold parameters for cyclobenzaprine and gabapentin * Cut down Gabapentin dose to 100 po BID due to oversedation and * Incentive spirometer as directed with beside pulmonary exercise * Routine AM Labs * Hold lasix for now * Encourage to eat and drink fluids * Lantus 10 units subQ BID * DVT and GI prophylaxis: Heparin and H2B * Code status: DNR/DNI * LOS> 96hrs due to complexity of acute illness 01/09/2021 * Continues current treatment * Continue hold parameters for cyclobenzaprine and gabapentin * Incentive spirometer as directed with beside pulmonary exercise * Routine AM Labs * Continue to hold lasix * Encourage to eat and drink fluids * May consider going up on Lantus to 13 units subQ BID since she is eating more * KCl 40 mEq po and 20 mEq IV x1 * D51/2 at 50 cc for hypernatremia * Repeat BMP at 1600 * Hold Heparin dose tonight * DVT and GI prophylaxis: Heparin and H2B * Code status: DNR/DNI * LOS> 96hrs due to complexity of acute illness 01/10/2021 * Scheduled for surgery this afternoon * Continues IS with pulmonary exercises * Lantus increased to 13 units BID yesterday with medium SS insulin * NPO today * Labs today: * WBC 9.64 * Hgb 10.7 * Sodium 148 * Potasium 3.7 * BUN 28, Creatinine 1.6, GFR 30, * Glucose 203 * Magnesium 2.5 * Resume diabetic diet after surgery * Discuss VTE for tomorrow post-operatively * Continue zosyn for UTI and possible PNA * Continue current treatment plan 01/11/2021 * Continue IS and pulmonary exercises * Resume diabetic diet * Start 81mg ASA BID and resume home plavix * Continue zosyn - discontinue tomorrow * There was confusion about thickened liquids - confirmed with dietary patient is thin liquids at [facility] * Labs today: * WBC 14.01 * hemoglobin 10.2 * neutrophils 12.12 * sodium 138 * potassium 4.3 * anion gap 16.3 * BUN 30, creatinine 1.3, GFR 28 * Echo obtained on 01/07/2021: * 1. Left ventricular ejection fraction, by visual estimation, is 60 to 65% * 2. Normal left ventricular systolic function * 3. Mild proximal septal hypertrophy. * 4. Normal pattern of LV diastolic filling. * 5. Normal right ventricular systolic function. * 6. There is mild aortic valve sclerosis without stenosis. * 7. Trace mitral valve regurgitation. * 8. Right ventricular systolic pressure is moderately to severely elevated at 46.6 mmHg. * 9. No regional wall motion abnormalities. * Continue current treatment plan * Likely to discharge tomorrow pending continued improvement. - Plan Plan:: Status post-operative repair of closed fracture of left hip Closed left hip fracture [facility] * Pain medications as ordered * Up to chair * Blackman removed 01/11/21 * Flexeril as ordered * PT/OT * CM/SW for discharge planning * Dr. Huertas, orthopedic surgeon consulted in ED * S/P left femur IM hip nailing gamma short * Resume home plavix * Plavix/ASA, SCDs for VTE * IS * Polar care * Nursing staff to reposition every 2 hours * High risk for cardio-pulmonary event for intermediate surgical risk; daughter Lisbeth is aware Acute respiratory failure, 3-4L NC CHF exacerbation CHF (congestive heart failure), NYHA class II Elevated Pro-BNP Fluid overload Hypoalbuminemia with Albumin of 2.6 Questionable pneumonia * Review old echo * New echocardiogram obtained * Stop fluids - renal function improved * Already on Zosyn for antibiotic coverage * Incentive spirometer and bedside pulmonary exercise UTI Leukocytosis, slightly worse * Zosyn Q8 HR * WBC is 14.01 today (post surgically) * Treat underlying cause Elevated ALT measurement, continues to improve * Avoid tylenol * Re-check labs and monitor Acute on chronic renal failure, improved * IV fluids discontinued due to worsening heart failure * Avoid nephrotoxic medications * She is getting zosyn and a little too much protein supplements * Cut down supplements and protein shakes * Continue to hold lasix and encourage to drink fluids DM2 (diabetes mellitus, type 2), remains uncontrolled * Lantus (sub for Tresiba) - will cut dose by half due to minimal PO intake-->increase LA to 13 units SubQ BID * Low dose scale humalog (down from medium dose due to poor PO intake)--> increased back to Medium dose * QID AC and bedtime blood glucose checks * Consistent carbohydrate diet Anemia Afib HTN (hypertension) Chronic constipation Urinary retention Chronic back pain History of TIA (transient ischemic attack) Depression * Review/reconcile home medications * Telemetry * PRN stool softeners Resolved: Hyperkalemia Hyperbilirubinemia Elevated AST (SGOT) Hypokalemia Hypernatremia Hypermagnesemia Code status: DNR/DNI PCP: Dr. Winchester DVT prophylaxis: Heparin/SCDs Social: Patient resides in [facility] Disposition: Patient admitted inpatient with telemetry for surgical management of left hip fracture on 01/06/21. Postponed until January 10, 2021 LOS >96 hrs due to delay in surgery for CHF/PNA/UTI treatment.
[2021-01-11] MEDS ORDERED: Polyethylene Glycol 3350 Powder 17 GM Packet PO PRN (07:43)
[2021-01-11] MEDS: Piperacillin/Tazobactam 4.5 GM in Sodium Chloride 0.9% 100 ML IV SCH ×2 (08:08→20:08)
[2021-01-11] MEDS: Metoprolol Succinate 50 MG Tab.ER PO SCH (08:16)
[2021-01-11] MEDS: Clopidogrel 75 MG Tab PO SCH (08:16)
[2021-01-11] MEDS: Aspirin 81 MG Tab.Chew PO SCH ×2 (08:16→20:08)
[2021-01-11] MEDS: Furosemide 40 MG Tab PO SCH (08:16)
[2021-01-11] MEDS: Docusate Sodium 100 MG Cap PO SCH ×2 (08:16→20:09)
[2021-01-11] MEDS: Gabapentin 100 MG Cap PO SCH ×2 (08:16→20:08)
[2021-01-11] MEDS: Insulin Glarg,Human.Rec.Analog 100 Unit/ML SUBCUT SCH ×2 (08:21→21:09)
--- NOTE | 2021-01-11 09:17 | CR ---
Left hip: AP, and frog leg lateral views left hip were obtained utilizing C-arm device. Six images were obtained. Comparison: Prior left hip exam of 01/03/21. Left hip shows placement of short intramedullary katey and compression screw. Fluoroscopy time is given as 61.6 seconds. Impression: 1. Operative change as noted above. Diagnostic code #2 MTDD
--- NOTE | 2021-01-11 17:37 | PCM.SURGPN ---
- General Info Date of Service: 01/11/21 POD#: 1 Functional Status: Reports: Other (The pt noted noted to have improved mobility today.) - Patient Data Vitals - Most Recent: Last Vital Signs Temp 97.6 F 01/11/21 11:44 Pulse 56 L 01/11/21 15:43 Resp 18 01/11/21 15:43 BP 114/65 01/11/21 15:43 Pulse Ox 92 L 01/11/21 16:15 Weight - Most Recent: 162 lb 3.2 oz I&O - Last 24 Hours: Intake & Output 01/11/21 01/11/21 01/11/21 06:59 14:59 22:59 Intake Total 1148 120 500 Output Total 625 Balance 523 120 500 Lab Results Last 24 Hrs: Laboratory Results - last 24 hr 01/10/21 01/10/21 01/10/21 Range/Units 11:08 16:09 17:27 WBC (3.98-10.04) K/mm3 RBC (3.98-5.22) M/mm3 Hgb (11.2-15.7) gm/dl Hct (34.1-44.9) % MCV (79.4-94.8) fl MCH (25.6-32.2) pg MCHC (32.2-35.5) g/dl RDW Std Deviation (36.4-46.3) fL Plt Count (182-369) K/mm3 MPV (9.4-12.3) fl Neut % (Auto) (34.0-71.1) % Lymph % (Auto) (19.3-51.7) % Lipscomb % (Auto) (4.7-12.5) % Eos % (Auto) (0.7-5.8) Baso % (Auto) (0.1-1.2) % Neut # (Auto) (1.56-6.13) K/mm3 Lymph # (Auto) (1.18-3.74) K/mm3 Lipscomb # (Auto) (0.24-0.36) K/mm3 Eos # (Auto) (0.04-0.36) K/mm3 Baso # (Auto) (0.01-0.08) K/mm3 Manual Slide Review Sodium (136-145) mEq/L Potassium (3.5-5.1) mEq/L Chloride (98-107) mEq/L Carbon Dioxide (21-32) mEq/L Anion Gap (5-15) BUN (7-18) mg/dL Creatinine (0.55-1.02) mg/dL Est Cr Clr Drug Dosing mL/min Estimated GFR (MDRD) (>60) mL/min BUN/Creatinine Ratio (14-18) Glucose (83-115) mg/dL POC Glucose 236 H 277 H 333 H (83-110) mg/dL Calcium (8.5-10.1) mg/dL Magnesium (1.8-2.4) mg/dl 01/10/21 01/11/21 01/11/21 Range/Units 20:10 04:43 04:43 WBC 14.01 H (3.98-10.04) K/mm3 RBC 3.40 L (3.98-5.22) M/mm3 Hgb 10.2 L (11.2-15.7) gm/dl Hct 32.4 L (34.1-44.9) % MCV 95.3 H (79.4-94.8) fl MCH 30.0 (25.6-32.2) pg MCHC 31.5 L (32.2-35.5) g/dl RDW Std Deviation 49.5 H (36.4-46.3) fL Plt Count 222 (182-369) K/mm3 MPV 11.5 (9.4-12.3) fl Neut % (Auto) 87.1 H (34.0-71.1) % Lymph % (Auto) 7.6 L (19.3-51.7) % Lipscomb % (Auto) 3.7 L (4.7-12.5) % Eos % (Auto) 0.1 L (0.7-5.8) Baso % (Auto) 0.1 (0.1-1.2) % Neut # (Auto) 12.22 H (1.56-6.13) K/mm3 Lymph # (Auto) 1.06 L (1.18-3.74) K/mm3 Lipscomb # (Auto) 0.52 H (0.24-0.36) K/mm3 Eos # (Auto) 0.01 L (0.04-0.36) K/mm3 Baso # (Auto) 0.01 (0.01-0.08) K/mm3 Manual Slide Review Normal smear Sodium 136 D 138 (136-145) mEq/L Potassium 4.0 4.3 (3.5-5.1) mEq/L Chloride 100 101 (98-107) mEq/L Carbon Dioxide 25 25 (21-32) mEq/L Anion Gap 15.0 16.3 H (5-15) BUN 27 H 30 H (7-18) mg/dL Creatinine 1.8 H 1.7 H (0.55-1.02) mg/dL Est Cr Clr Drug Dosing 15.22 16.11 mL/min Estimated GFR (MDRD) 26 28 (>60) mL/min BUN/Creatinine Ratio 15.0 17.6 (14-18) Glucose 473 H 303 H (83-115) mg/dL POC Glucose (83-110) mg/dL Calcium 8.6 8.9 (8.5-10.1) mg/dL Magnesium 2.2 (1.8-2.4) mg/dl 01/11/21 01/11/21 01/11/21 Range/Units 06:45 12:20 16:52 WBC (3.98-10.04) K/mm3 RBC (3.98-5.22) M/mm3 Hgb (11.2-15.7) gm/dl Hct (34.1-44.9) % MCV (79.4-94.8) fl MCH (25.6-32.2) pg MCHC (32.2-35.5) g/dl RDW Std Deviation (36.4-46.3) fL Plt Count (182-369) K/mm3 MPV (9.4-12.3) fl Neut % (Auto) (34.0-71.1) % Lymph % (Auto) (19.3-51.7) % Lipscomb % (Auto) (4.7-12.5) % Eos % (Auto) (0.7-5.8) Baso % (Auto) (0.1-1.2) % Neut # (Auto) (1.56-6.13) K/mm3 Lymph # (Auto) (1.18-3.74) K/mm3 Lipscomb # (Auto) (0.24-0.36) K/mm3 Eos # (Auto) (0.04-0.36) K/mm3 Baso # (Auto) (0.01-0.08) K/mm3 Manual Slide Review Sodium (136-145) mEq/L Potassium (3.5-5.1) mEq/L Chloride (98-107) mEq/L Carbon Dioxide (21-32) mEq/L Anion Gap (5-15) BUN (7-18) mg/dL Creatinine (0.55-1.02) mg/dL Est Cr Clr Drug Dosing mL/min Estimated GFR (MDRD) (>60) mL/min BUN/Creatinine Ratio (14-18) Glucose (83-115) mg/dL POC Glucose 332 H 350 H 274 H (83-110) mg/dL Calcium (8.5-10.1) mg/dL Magnesium (1.8-2.4) mg/dl Med Orders - Current: Current Medications Acetaminophen (Tylenol) 650 mg PO Q4H PRN PRN Reason: Pain/Fever Last Admin: 01/11/21 12:23 Dose: 650 mg Documented by: Albuterol/Ipratropium (Duoneb 3.0-0.5 Mg/3 Ml) 3 ml NEB Q4H PRN PRN Reason: Shortness Of Breath/wheezing Aspirin (Aspirin) 81 mg PO BID [facility] Stop: 02/15/21 09:01 Last Admin: 01/11/21 08:16 Dose: 81 mg Documented by: Calcium Carbonate/Glycine (Tums) 500 mg PO Q4H PRN PRN Reason: Heartburn Clopidogrel Bisulfate (Plavix) 75 mg PO DAILY [facility] Last Admin: 01/11/21 08:16 Dose: 75 mg Documented by: Cyclobenzaprine HCl (Flexeril) 10 mg PO TID PRN PRN Reason: muscle spasms Last Admin: 01/11/21 00:47 Dose: 10 mg Documented by: Docusate Sodium (Colace) 100 mg PO BID [facility] Last Admin: 01/11/21 08:16 Dose: 100 mg Documented by: Famotidine (Pepcid) 20 mg PO Q48H [facility] Last Admin: 01/10/21 08:39 Dose: 20 mg Documented by: Furosemide (Lasix) 40 mg PO DAILY [facility] Last Admin: 01/11/21 08:16 Dose: 40 mg Documented by: Gabapentin (Neurontin) 100 mg PO BID [facility] Last Admin: 01/11/21 08:16 Dose: 100 mg Documented by: Hydralazine HCl (Apresoline) 10 mg IVPUSH Q4H PRN PRN Reason: Hypertension Hydromorphone HCl (Dilaudid) 0.5 mg IVPUSH Q4H PRN PRN Reason: Pain (severe 7-10) Last Admin: 01/11/21 02:51 Dose: 0.5 mg Documented by: Promethazine HCl 12.5 mg/ (Sodium Chloride) 50.5 mls @ 100 mls/hr IV Q6H PRN PRN Reason: Nausea/Vomiting Piperacillin Sod/Tazobactam (Sod 4.5 gm/ Sodium Chloride) 100 mls @ 25 mls/hr IV Q12H [facility] Last Admin: 01/11/21 08:08 Dose: 25 mls/hr Documented by: Insulin Glargine (Lantus) 15 unit SUBCUT BID [facility] Last Admin: 01/11/21 08:21 Dose: 15 units Documented by: Insulin Human Lispro (Humalog) 0 unit SUBCUT QIDACANDBED [facility]; Protocol Last Admin: 01/11/21 17:35 Dose: 6 units Documented by: Magnesium Hydroxide (Milk Of Magnesia) 30 ml PO DAILY PRN PRN Reason: Constipation Last Admin: 01/07/21 16:09 Dose: 30 ml Documented by: Metoprolol Succinate (Toprol Xl) 50 mg PO DAILY [facility] Last Admin: 01/11/21 08:16 Dose: 50 mg Documented by: Oxycodone HCl (Oxycodone) 5 mg PO Q6H PRN PRN Reason: Pain (moderate 4-6) Last Admin: 01/11/21 12:26 Dose: 5 mg Documented by: Polyethylene Glycol (Miralax) 17 gm PO ASDIRECTED PRN PRN Reason: Constipation Discontinued Medications Acetaminophen (Tylenol) 650 mg PO Q6H PRN PRN Reason: Pain (Mild 1-3)/fever Last Admin: 01/04/21 12:34 Dose: 650 mg Documented by: Acetaminophen (Tylenol) 650 mg PO Q4H PRN PRN Reason: Fever Last Admin: 01/09/21 21:00 Dose: 650 mg Documented by: Bupivacaine HCl (Marcaine 0.5%) Confirm Administered Dose 0 ml .ROUTE .STK-MED ONE Stop: 01/06/21 09:56 Bupivacaine HCl (Sensorcaine-Mpf 0.25%) Confirm Administered Dose 0 ml .ROUTE .STK-MED ONE Stop: 01/10/21 12:57 Bupivacaine HCl (Sensorcaine-Mpf 0.25%) Confirm Administered Dose 30 ml .ROUTE .STK-MED ONE Stop: 01/10/21 13:29 Last Admin: 01/10/21 15:00 Dose: 15 ml Documented by: Calcium Carbonate/Glycine (Tums) 400 mg PO Q4H PRN PRN Reason: Heartburn Dexamethasone (Dexamethasone) Confirm Administered Dose 20 mg .ROUTE .STK-MED ONE Stop: 01/10/21 13:46 Dexmedetomidine HCl (Precedex) Confirm Administered Dose 200 mcg .ROUTE .STK-MED ONE Stop: 01/10/21 12:35 Docusate Sodium (Colace) 100 mg PO BID PRN PRN Reason: Constipation Last Admin: 01/06/21 15:57 Dose: 100 mg Documented by: Famotidine (Pepcid) 20 mg PO DAILY [facility] Last Admin: 01/04/21 09:57 Dose: 20 mg Documented by: Fentanyl (Sublimaze) Confirm Administered Dose 0 mcg .ROUTE .ST-MED ONE Stop: 01/06/21 10:46 Fentanyl (Sublimaze) Confirm Administered Dose 100 mcg .ROUTE .STK-MED ONE Stop: 01/10/21 12:53 Furosemide (Lasix) 40 mg IVPUSH NOW ONE Stop: 01/03/21 21:42 Last Admin: 01/03/21 22:00 Dose: 40 mg Documented by: Furosemide (Lasix) 20 mg PO DAILY [facility] Last Admin: 01/04/21 13:04 Dose: Not Given Documented by: Furosemide (Lasix) 20 mg IVPUSH ONETIME ONE Stop: 01/04/21 18:01 Last Admin: 01/04/21 18:47 Dose: 20 mg Documented by: Furosemide (Lasix) 40 mg IVPUSH NOW ONE Stop: 01/06/21 11:15 Last Admin: 01/06/21 11:22 Dose: 40 mg Documented by: Furosemide (Lasix) 40 mg IVPUSH NOW ONE Stop: 01/07/21 08:13 Last Admin: 01/07/21 08:29 Dose: 40 mg Documented by: Furosemide (Lasix) 40 mg PO DAILY [facility] Last Admin: 01/08/21 09:04 Dose: 40 mg Documented by: Gabapentin (Neurontin) 600 mg PO BID [facility] Last Admin: 01/04/21 08:10 Dose: 600 mg Documented by: Gabapentin (Neurontin) 600 mg PO BID [facility] Last Admin: 01/08/21 09:04 Dose: 600 mg Documented by: Heparin Sodium (Porcine) (Heparin Sodium) 5,000 units SUBCUT Q8H [facility] Stop: 01/05/21 23:00 Last Admin: 01/05/21 21:18 Dose: 5,000 units Documented by: Heparin Sodium (Porcine) (Heparin Sodium) 5,000 units SUBCUT Q8H [facility] Last Admin: 01/09/21 10:58 Dose: 5,000 units Documented by: Hydromorphone HCl (Dilaudid) 0.25 mg IVPUSH ONETIME ONE Stop: 01/03/21 20:02 Last Admin: 01/03/21 20:10 Dose: 0.25 mg Documented by: Hydromorphone HCl (Dilaudid) 0.25 mg IVPUSH ONETIME ONE Stop: 01/03/21 22:22 Last Admin: 01/03/21 23:17 Dose: 0.25 mg Documented by: Sodium Chloride (Normal Saline) 1,000 mls @ 65 mls/hr IV ASDIRECTED [facility] Lactated Ringer's (Ringers, Lactated) 1,000 mls @ 50 mls/hr IV ASDIRECTED [facility] Last Admin: 01/04/21 14:18 Dose: 50 mls/hr Documented by: Lactated Ringer's (Ringers, Lactated) 1,000 mls @ 65 mls/hr IV ASDIRECTED [facility] Last Admin: 01/05/21 06:46 Dose: 65 mls/hr Documented by: Lactated Ringer's (Ringers, Lactated) 1,000 mls @ 100 mls/hr IV ASDIRECTED [facility] Stop: 01/05/21 19:29 Last Admin: 01/05/21 09:44 Dose: 100 mls/hr Documented by: Lactated Ringer's (Ringers, Lactated) 1,000 mls @ 75 mls/hr IV ASDIRECTED [facility] Last Admin: 01/06/21 07:37 Dose: 75 mls/hr Documented by: Piperacillin Sod/Tazobactam (Sod 4.5 gm/ Sodium Chloride) 100 mls @ 25 mls/hr IV Q8H KANNAN Piperacillin Sod/Tazobactam (Sod 4.5 gm/ Sodium Chloride) 100 mls @ 200 mls/hr IV ONETIME ONE Stop: 01/07/21 08:29 Last Admin: 01/07/21 08:35 Dose: 200 mls/hr Documented by: Sodium Chloride (Normal Saline) 500 mls @ 45 mls/hr IV ASDIRECTED [facility] Stop: 01/09/21 07:37 Last Admin: 01/08/21 21:56 Dose: 45 mls/hr Documented by: Potassium Chloride 20 meq/ (Dextrose/Water) 1,010 mls @ 50 mls/hr IV ASDIRECTED [facility] Stop: 01/10/21 08:41 Potassium Chloride/Dextrose/Sod Cl (D5 1/2 Ns W/ 10 Meq/L Kcl) 1,000 mls @ 50 mls/hr IV ASDIRECTED [facility] Last Admin: 01/10/21 09:08 Dose: 50 mls/hr Documented by: Lidocaine HCl (Xylocaine-Mpf 1%) Confirm Administered Dose 4 mls @ as directed .ROUTE .STK-MED ONE Stop: 01/10/21 12:54 Insulin Glargine (Lantus) 15 unit SUBCUT DAILY [facility] Last Admin: 01/07/21 08:01 Dose: Not Given Documented by: Insulin Glargine (Lantus) 7.5 unit SUBCUT ONETIME ONE Stop: 01/07/21 09:01 Last Admin: 01/07/21 08:16 Dose: 7.5 units Documented by: Insulin Glargine (Lantus) 15 unit SUBCUT DAILY [facility] Insulin Glargine (Lantus) 7.5 unit SUBCUT DAILY [facility] Last Admin: 01/08/21 09:06 Dose: 7.5 units Documented by: Insulin Glargine (Lantus) 10 unit SUBCUT BID [facility] Last Admin: 01/09/21 08:36 Dose: 10 units Documented by: Insulin Glargine (Lantus) 10 unit SUBCUT NOW STA Stop: 01/08/21 19:06 Last Admin: 01/08/21 19:28 Dose: 10 unit Documented by: Insulin Glargine (Lantus) 13 unit SUBCUT BID KANNAN Last Admin: 01/10/21 21:03 Dose: 13 units Documented by: Insulin Glargine (Lantus) 5 unit SUBCUT NOW STA Stop: 01/09/21 21:12 Last Admin: 01/09/21 22:33 Dose: 5 units Documented by: Insulin Human Lispro (Humalog) 0 unit SUBCUT QIDACANDBED KANNAN; Protocol Last Admin: 01/08/21 14:23 Dose: Not Given Documented by: Insulin Human Lispro (Humalog) 0 unit SUBCUT QIDACANDBED KANNAN; Protocol Ketamine HCl (Ketalar) Confirm Administered Dose 0 mg .ROUTE .STK-MED ONE Stop: 01/06/21 10:47 Ketamine HCl (Ketalar) Confirm Administered Dose 500 mg .ROUTE .STK-MED ONE Stop: 01/10/21 12:54 Lidocaine HCl (Xylocaine 1%) 10 ml INJECT ONETIME ONE Stop: 01/03/21 18:58 Last Admin: 01/04/21 00:57 Dose: Not Given Documented by: Lidocaine/Epinephrine (Xylocaine-Mpf 2%-Epi 1:200,000) Confirm Administered Dose 20 ml .ROUTE .STK-MED ONE Stop: 01/06/21 10:13 Metoprolol Tartrate (Lopressor) 5 mg IVPUSH Q5M PRN PRN Reason: Hypertension Stop: 01/10/21 18:00 Last Admin: 01/10/21 16:21 Dose: 1 mg Documented by: Midazolam HCl (Versed 1 Mg/Ml) Confirm Administered Dose 0 mg .ROUTE .STK-MED ON E Stop: 01/06/21 10:46 Midazolam HCl (Versed 1 Mg/Ml) Confirm Administered Dose 2 mg .ROUTE .STK-MED ONE Stop: 01/10/21 12:54 Non-Formulary Medication (Insulin Degludec [Tresiba]) 15 unit SQ DAILY [facility] Ondansetron HCl (Zofran) 4 mg IVPUSH ONETIME ONE Stop: 01/03/21 18:48 Last Admin: 01/03/21 18:51 Dose: 4 mg Documented by: Ondansetron HCl (Zofran) Confirm Administered Dose 4 mg .ROUTE .STK-MED ONE Stop: 01/03/21 19:51 Last Admin: 01/03/21 20:11 Dose: Not Given Documented by: Ondansetron HCl (Zofran) 4 mg IVPUSH ONETIME ONE Stop: 01/03/21 20:07 Last Admin: 01/03/21 20:11 Dose: 4 mg Documented by: Potassium Chloride (Klor-Con M20) 40 meq PO DAILY STA Stop: 01/09/21 12:25 Last Admin: 01/09/21 13:23 Dose: Not Given Documented by: Potassium Chloride (Klor-Con M20) 40 meq PO ONETIME ONE Stop: 01/09/21 12:39 Last Admin: 01/09/21 13:10 Dose: 40 meq Documented by: Propofol (Diprivan 20 Ml) Confirm Administered Dose 200 mg .ROUTE .STK-MED ONE Stop: 01/10/21 12:54 Ropivacaine (Naropin 0.5%) Confirm Administered Dose 30 ml .ROUTE .STK-MED ONE Stop: 01/06/21 09:57 Ropivacaine (Naropin 0.5%) Confirm Administered Dose 30 ml .ROUTE .STK-MED ONE Stop: 01/10/21 12:35 Sodium Polystyrene Sulfonate (Kayexalate) 15 gm PO ONETIME ONE Stop: 01/04/21 08:50 Last Admin: 01/04/21 09:57 Dose: 15 gm Documented by: Spironolactone (Aldactone) 50 mg PO DAILY [facility] Last Admin: 01/04/21 08:10 Dose: 50 mg Documented by: Tamsulosin HCl (Flomax) 0.4 mg PO DAILY [facility] Last Admin: 01/04/21 17:44 Dose: Not Given Documented by: - Exam Wound/Incisions: Dressing Dry and Intact Lungs: Normal Respiratory Effort Extremities: Other (Left thigh soft. ) Sepsis Event Note - Evaluation Sepsis Screening Result: No Definite Risk - Focused Exam Vital Signs: Vital Signs Temp Temp Pulse Pulse Resp BP BP 01/11/21 16:15 01/11/21 15:43 53 L 18 114/65 01/11/21 11:44 97.6 F 51 L 18 110/31 L 01/11/21 11:26 97.5 F 51 L 01/11/21 11:16 18 110/31 L 01/11/21 08:24 97.5 F 01/11/21 08:19 65 18 127/93 H 01/11/21 08:16 65 127/93 H 01/11/21 08:00 97.5 F 65 18 127/93 H 01/11/21 06:12 Pulse Ox Pulse Ox 01/11/21 16:15 92 L 01/11/21 15:43 84 L 01/11/21 11:44 96 01/11/21 11:26 96 01/11/21 11:16 01/11/21 08:24 01/11/21 08:19 92 L 01/11/21 08:16 01/11/21 08:00 92 L 01/11/21 06:12 96 - Problem List Review Problem List Initiated/Reviewed/Updated: Yes - My Orders Last 24 Hours: Active Orders 24 hr Category Date Time Status Patient Status [ADT] Routine ADT 01/10/21 18:58 Active Up to Chair [RC] ASDIRECTED Care 01/11/21 10:38 Active Consistent Carbohydrate Diet [DIET] Diet 01/11/21 Breakfast Active BMP [BASIC METABOLIC PANEL,BMP] [CHEM] AM Lab 01/12/21 05:11 Ordered CBC WITH AUTO DIFF [HEME] AM Lab 01/12/21 05:11 Ordered MAGNESIUM [CHEM] AM Lab 01/12/21 05:11 Ordered Acetaminophen [TylenoL] Med 01/11/21 00:36 Active 650 mg PO Q4H PRN Aspirin Med 01/11/21 09:00 Active 81 mg PO BID Clopidogrel [Plavix] Med 01/11/21 09:00 Active 75 mg PO DAILY Insulin Glarg,Human.Rec.Analog [LantUS] Med 01/11/21 09:00 Active 15 unit SUBCUT BID polyethylene glycoL 3350 [MiraLAX] Med 01/11/21 07:43 Active 17 gm PO ASDIRECTED PRN MCKAY Hose [Antiembolic Hose] [OM.PC] Routine Oth 01/10/21 17:13 Ordered Weight bearing status [OM.PC] Routine Oth 01/10/21 18:47 Ordered Medication Orders Acetaminophen (Tylenol) 650 mg PO Q4H PRN PRN Reason: Pain/Fever Last Admin: 01/11/21 12:23 Dose: 650 mg Documented by: Admin: 01/11/21 00:46 Dose: 650 mg Documented by: NICOLE Albuterol/Ipratropium (Duoneb 3.0-0.5 Mg/3 Ml) 3 ml NEB Q4H PRN PRN Reason: Shortness Of Breath/wheezing Aspirin (Aspirin) 81 mg PO BID [facility] Stop: 02/15/21 09:01 Last Admin: 01/11/21 08:16 Dose: 81 mg Documented by: KEVEN Calcium Carbonate/Glycine (Tums) 500 mg PO Q4H PRN PRN Reason: Heartburn Clopidogrel Bisulfate (Plavix) 75 mg PO DAILY [facility] Last Admin: 01/11/21 08:16 Dose: 75 mg Documented by: KEVEN Cyclobenzaprine HCl (Flexeril) 10 mg PO TID PRN PRN Reason: muscle spasms Last Admin: 01/11/21 00:47 Dose: 10 mg Documented by: Admin: 01/04/21 12:36 Dose: 10 mg Documented by: KEVEN Docusate Sodium (Colace) 100 mg PO BID [facility] Last Admin: 01/11/21 08:16 Dose: 100 mg Documented by: Admin: 01/10/21 21:03 Dose: 100 mg Documented by: Admin: 01/10/21 08:39 Dose: 100 mg Documented by: Admin: 01/09/21 20:36 Dose: 100 mg Documented by: Admin: 01/09/21 08:43 Dose: 100 mg Documented by: Admin: 01/08/21 20:11 Dose: 100 mg Documented by: Admin: 01/08/21 09:05 Dose: 100 mg Documented by: Admin: 01/07/21 21:15 Dose: 100 mg Documented by: GIL Famotidine (Pepcid) 20 mg PO Q48H [facility] Last Admin: 01/10/21 08:39 Dose: 20 mg Documented by: Admin: 01/08/21 09:08 Dose: 20 mg Documented by: Admin: 01/06/21 08:23 Dose: Not Given Documented by: KEVEN Furosemide (Lasix) 40 mg PO DAILY [facility] Last Admin: 01/11/21 08:16 Dose: 40 mg Documented by: Admin: 01/10/21 08:40 Dose: 40 mg Documented by: BHARATI Gabapentin (Neurontin) 100 mg PO BID [facility] Last Admin: 01/11/21 08:16 Dose: 100 mg Documented by: Admin: 01/10/21 21:03 Dose: 100 mg Documented by: Admin: 01/10/21 08:39 Dose: 100 mg Documented by: Admin: 01/09/21 20:36 Dose: 100 mg Documented by: Admin: 01/09/21 09:10 Dose: 100 mg Documented by: Admin: 01/08/21 20:11 Dose: 100 mg Documented by: GIL Hydralazine HCl (Apresoline) 10 mg IVPUSH Q4H PRN PRN Reason: Hypertension Hydromorphone HCl (Dilaudid) 0.5 mg IVPUSH Q4H PRN PRN Reason: Pain (severe 7-10) Last Admin: 01/11/21 02:51 Dose: 0.5 mg Documented by: Admin: 01/06/21 08:18 Dose: 0.5 mg Documented by: Admin: 01/05/21 09:54 Dose: 0.5 mg Documented by: Admin: 01/04/21 05:13 Dose: 0.5 mg Documented by: Admin: 01/04/21 01:09 Dose: 0.5 mg Documented by: GAYLE Promethazine HCl 12.5 mg/ (Sodium Chloride) 50.5 mls @ 100 mls/hr IV Q6H PRN PRN Reason: Nausea/Vomiting Piperacillin Sod/Tazobactam (Sod 4.5 gm/ Sodium Chloride) 100 mls @ 25 mls/hr IV Q12H [facility] Last Admin: 01/11/21 08:08 Dose: 25 mls/hr Documented by: Infusion: 01/11/21 01:02 Dose: 25 mls/hr Documented by: Admin: 01/10/21 21:02 Dose: 25 mls/hr Documented by: Infusion: 01/10/21 12:36 Dose: 25 mls/hr Documented by: Admin: 01/10/21 08:36 Dose: 25 mls/hr Documented by: Infusion: 01/10/21 00:30 Dose: 25 mls/hr Documented by: Admin: 01/09/21 20:30 Dose: 25 mls/hr Documented by: Infusion: 01/09/21 12:14 Dose: 25 mls/hr Documented by: Admin: 01/09/21 08:14 Dose: 25 mls/hr Documented by: Infusion: 01/09/21 00:11 Dose: 25 mls/hr Documented by: Admin: 01/08/21 20:11 Dose: 25 mls/hr Documented by: Infusion: 01/08/21 13:04 Dose: 25 mls/hr Documented by: Admin: 01/08/21 09:04 Dose: 25 mls/hr Documented by: Infusion: 01/08/21 01:15 Dose: 25 mls/hr Documented by: Admin: 01/07/21 21:15 Dose: 25 mls/hr Documented by: GIL Insulin Glargine (Lantus) 15 unit SUBCUT BID [facility] Last Admin: 01/11/21 08:21 Dose: 15 units Documented by: PROEAMA Insulin Human Lispro (Humalog) 0 unit SUBCUT QIDACANDBED [facility]; Protocol Last Admin: 01/11/21 17:35 Dose: 6 units Documented by: Admin: 01/11/21 12:34 Dose: 10 units Documented by: Admin: 01/11/21 08:05 Dose: 8 units Documented by: Admin: 01/10/21 21:04 Dose: 10 units Documented by: Admin: 01/10/21 18:48 Dose: 8 units Documented by: Admin: 01/10/21 12:02 Dose: Not Given Documented by: Admin: 01/10/21 07:42 Dose: Not Given Documented by: Admin: 01/09/21 22:35 Dose: 10 units Documented by: Admin: 01/09/21 18:00 Dose: 8 units Documented by: Admin: 01/09/21 11:06 Dose: 10 units Documented by: Admin: 01/09/21 10:45 Dose: Not Given Documented by: Admin: 01/08/21 22:26 Dose: 10 units Documented by: Admin: 01/08/21 19:03 Dose: 10 units Documented by: Admin: 01/08/21 12:58 Dose: 10 units Documented by: ALFONSO Magnesium Hydroxide (Milk Of Magnesia) 30 ml PO DAILY PRN PRN Reason: Constipation Last Admin: 01/07/21 16:09 Dose: 30 ml Documented by: ALFONSO Metoprolol Succinate (Toprol Xl) 50 mg PO DAILY KANNAN Last Admin: 01/11/21 08:16 Dose: 50 mg Documented by: Admin: 01/10/21 10:57 Dose: 50 mg Documented by: Admin: 01/09/21 08:43 Dose: 50 mg Documented by: Admin: 01/08/21 09:05 Dose: 50 mg Documented by: Admin: 01/07/21 08:17 Dose: 50 mg Documented by: Admin: 01/06/21 08:23 Dose: 50 mg Documented by: Admin: 01/05/21 08:57 Dose: 50 mg Documented by: Admin: 01/04/21 08:11 Dose: 50 mg Documented by: KEVEN Oxycodone HCl (Oxycodone) 5 mg PO Q6H PRN PRN Reason: Pain (moderate 4-6) Last Admin: 01/11/21 12:26 Dose: 5 mg Documented by: Admin: 01/11/21 00:47 Dose: 5 mg Documented by: Admin: 01/10/21 21:07 Dose: 5 mg Documented by: Admin: 01/08/21 06:56 Dose: 5 mg Documented by: Admin: 01/07/21 08:18 Dose: 5 mg Documented by: Admin: 01/06/21 21:48 Dose: 5 mg Documented by: Admin: 01/06/21 01:36 Dose: 5 mg Documented by: Admin: 01/05/21 08:56 Dose: 5 mg Documented by: Admin: 01/04/21 20:48 Dose: 5 mg Documented by: Admin: 01/04/21 12:35 Dose: 5 mg Documented by: KEVEN Polyethylene Glycol (Miralax) 17 gm PO ASDIRECTED PRN PRN Reason: Constipation - Assessment Assessment (Free Text/Narrative):: POD#1 - cephalomedullary nail placement for left hip fracture - Plan Plan (Free Text/Narrative):: 1. Progress with therapies as tolerated. 2. WBAT LLE. 3. Pt has resumed use of Plavix and is using 81mg ASA PO BID. 4. Further orders per Hospitalist service. The pt was evaluated by Dr. Huertas today.
--- NOTE | 2021-01-12 07:42 | PCM.DCSUM1 ---
Discharge Summary - Hospital Course HPI Initial Comments: This is an 89 yo female who presents to ED via [facility] on 01/03/2021 after a fall resulting in a left elbow and hip injury. Patient states that she thinks her hip gave out or possibly her blood sugar dropped after she got up from a chair to walk to the bathroom and she fell. This occurred at the custodial facility where she resides. She reports she did hit her head and she is on Plavix. Denies any loss of consciousness. She does have a large skin tear to her left elbow. Left leg is noted to be externally rotated and shortened. In the ED temp is 97.4. Pulse is 58. Respirations 16. Blood pressure 127/55. Pulse ox 78%. Twelve-lead EKG is obtained showing a sinus rhythm at 81 bpm with a first-degree AV block. No signs of ischemia. Labs are changed showing WBC does elevated at 16.81. Hemoglobin is 13.6. Platelets are good at 232,000. Neutrophils are elevated at 13.83. INR 0.96. Sodium 143. Potassium 4.7. Chloride 105. Carbon dioxide 28. Anion gap 14.7. BUN is elevated 25. Creatinine elevated 2.1. GFR is 22. Glucose 91. Calcium 9.5. Bilirubin 0.5. AST is 38, ALT 32, alkaline phosphatase 77. Protein 7.1. Albumin 3.6. Magnesium is 2.4. Troponin is less than 0.017. proBNP is 136. SARS Covid 2 RNA is negative. UA shows trace leukocyte esterase, 5-10 hyaline casts, many bacteria. Head CT is obtained showing air-fluid levels in the right maxillary sinus, please rule out any symptoms of acute sinusitis. There is also senescent change but nothing acute noted. Elbow x-ray is obtained and shows no acute fracture. Patient does have a 4 cm skin tear to the left elbow which is covered using Steri-Strips and gauze. She is given Zofran for nausea and Dilaudid for pain. CT of the left hip is obtained showing acute complex proximal left femoral fracture. Predominant fracture line appears to be predominantly basocervical oblique however a fracture line extends superior laterally anteriorly transcervically. Fracture lines involving the greater trochanter as well. There is some angulation and overriding of the fracture fragments. Patient is noted to require 3 L of oxygen in the ER and it is reported she normally wears 2 L at home. She is given 40 mg of IV push Lasix. Case discussed with Dr. Huertas, orthopedic surgeon, who recommends patient be admitted for surgical repair on , due to her taking Plavix. She carries a history of heart failure, hypertension, A. fib, anemia, chronic constipation, dysphagia, chronic renal sufficiency, urinary retention, chronic back pain, TIA, cerebral infarct, neuralgia, depression, vascular dementia, type II DM. She was never a smoker. Her PCP is Dr. Winchester. She is a DNR/DNI. She subsequently admitted to the medical floor inpatient for management of her hip fracture. Diagnosis: Stroke: No - Discharge Data Discharge Date: 01/12/21 (Admit date: 01/03/21) Discharge Disposition: DC/Tfer to SNF 03 Condition: Good - Referral to Home Health Primary Care Physician: Dudley Winchester MD - Discharge Diagnosis/Problem(s) (1) Closed left hip fracture SNOMED Code(s): 107785860 ICD Code: S72.002A - FRACTURE OF UNSP PART OF NECK OF LEFT FEMUR, INIT Status: Resolved Priority: High Current Visit: Yes Qualifiers: Encounter type: initial encounter Qualified Code(s): S72.002A - Fracture of unspecified part of neck of left femur, initial encounter for closed fracture (2) Anemia SNOMED Code(s): 087485787 ICD Code: D64.9 - ANEMIA, UNSPECIFIED Status: Chronic Priority: Medium Current Visit: No Onset Date: 04/30/19 Problem Details: anemia sec to anticoagulation with xarolto / plavix and asa asa held mild bleeding noted from hemmhroids Qualifiers: Anemia type: due to chronic 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) Qualified Code(s): N18.4 - Chronic kidney disease, stage 4 (severe); D63.1 - Anemia in chronic kidney disease (3) CHF (congestive heart failure), NYHA class II SNOMED Code(s): 677751099, 527523553 ICD Code: I50.9 - HEART FAILURE, UNSPECIFIED Status: Chronic Priority: Medium Current Visit: No Onset Date: 05/01/19 Qualifiers: Congestive heart failure type: unspecified Qualified Code(s): I50.9 - Heart failure, unspecified (4) Fall SNOMED Code(s): 8170187, 116606635 ICD Code: W19.XXXA - UNSPECIFIED FALL, INITIAL ENCOUNTER Status: Acute Priority: High Current Visit: Yes Qualifiers: Encounter type: subsequent encounter Qualified Code(s): W19.XXXD - Unspecified fall, subsequent encounter (5) DM2 (diabetes mellitus, type 2) SNOMED Code(s): 65240196 ICD Code: E11.9 - TYPE 2 DIABETES MELLITUS WITHOUT COMPLICATIONS Status: Chronic Priority: High Current Visit: No Onset Date: 05/02/19 Qualifiers: Diabetes mellitus emt intermediate insulin use: unspecified emt intermediate insulin use status Diabetes mellitus complication status: with unspecified complications (6) Afib SNOMED Code(s): 81480186 ICD Code: I48.91 - UNSPECIFIED ATRIAL FIBRILLATION Status: Chronic Priority: Low Current Visit: No Qualifiers: Atrial fibrillation type: paroxysmal Qualified Code(s): I48.0 - Paroxysmal atrial fibrillation (7) HTN (hypertension) SNOMED Code(s): 95681989 ICD Code: I10 - ESSENTIAL (PRIMARY) HYPERTENSION Status: Chronic Priori ty: Medium Current Visit: No Qualifiers: Hypertension type: unspecified Qualified Code(s): I10 - Essential (primary) hypertension (8) Chronic constipation SNOMED Code(s): 936803124 ICD Code: K59.09 - OTHER CONSTIPATION Status: Chronic Priority: Low Current Visit: No (9) Urinary retention SNOMED Code(s): 210425528 ICD Code: R33.9 - RETENTION OF URINE, UNSPECIFIED Status: Chronic Priority: Low Current Visit: No (10) Chronic back pain SNOMED Code(s): 904934281 ICD Code: M54.9 - DORSALGIA, UNSPECIFIED; G89.29 - OTHER CHRONIC PAIN Status: Chronic Priority: Low Current Visit: No Qualifiers: Back pain location: back pain in unspecified location Back pain laterality: unspecified Qualified Code(s): M54.9 - Dorsalgia, unspecified; G89.29 - Other chronic pain (11) History of TIA (transient ischemic attack) SNOMED Code(s): 207215410 ICD Code: Z86.73 - PRSNL HX OF TIA (TIA), AND CEREB INFRC W/O RESID DEFICITS Status: Chronic Priority: Low Current Visit: No (12) Depression SNOMED Code(s): 74167074 ICD Code: F32.9 - MAJOR DEPRESSIVE DISORDER, SINGLE EPISODE, UNSPECIFIED Status: Chronic Priority: Low Current Visit: No Qualifiers: Depression Type: other depression Qualified Code(s): F32.89 - Other sp ecified depressive episodes (13) snf resident SNOMED Code(s): 781649435 ICD Code: Z59.3 - PROBLEMS RELATED TO LIVING IN RESIDENTIAL INSTITUTION Status: Chronic Priority: Low Current Visit: No (14) Hyperbilirubinemia SNOMED Code(s): 21838811 ICD Code: E80.6 - OTHER DISORDERS OF BILIRUBIN METABOLISM Status: Acute Priority: Medium Current Visit: Yes (15) Elevated AST (SGOT) SNOMED Code(s): 639062074 ICD Code: R74.01 - ELEVATION OF LEVELS OF LIVER TRANSAMINASE LEVELS Status: Acute Priority: Medium Current Visit: Yes (16) Elevated ALT measurement SNOMED Code(s): 362321222 ICD Code: R74.01 - ELEVATION OF LEVELS OF LIVER TRANSAMINASE LEVELS Status: Acute Priority: Medium Current Visit: Yes (17) Acute on chronic renal failure SNOMED Code(s): 441372062 ICD Code: N17.9 - ACUTE KIDNEY FAILURE, UNSPECIFIED; N18.9 - CHRONIC KIDNEY DISEASE, UNSPECIFIED Status: Acute Priority: High Current Visit: Yes Qualifiers: 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) Qualified Code(s): N17.2 - Acute kidney failure with medullary necrosis; N18.4 - Chronic kidney disease, stage 4 (severe) (18) Hyperkalemia SNOMED Code(s): 57503640 ICD Code: E87.5 - HYPERKALEMIA Status: Resolved Priority: High Current Visit: Yes (19) Fluid overload SNOMED Code(s): 77202240 ICD Code: E87.70 - FLUID OVERLOAD, UNSPECIFIED Status: Resolved Priority: High Current Visit: Yes Qualifiers: Hypervolemia type: unspecified Qualified Code(s): E87.70 - Fluid overload, unspecified (20) Acute respiratory failure SNOMED Code(s): 29773905 ICD Code: J96.00 - ACUTE RESPIRATORY FAILURE, UNSP W HYPOXIA OR HYPERCAPNIA Status: Acute Current Visit: Yes (21) Elevated brain natriuretic peptide (BNP) level SNOMED Code(s): 826436041, 412778531 ICD Code: R79.89 - OTHER SPECIFIED ABNORMAL FINDINGS OF BLOOD CHEMISTRY Status: Acute Current Visit: Yes (22) Pneumonia SNOMED Code(s): 989852306 ICD Code: J18.9 - PNEUMONIA, UNSPECIFIED ORGANISM Status: Resolved Priority: High Current Visit: Yes Problem Details: very slow improvmetna nd continued atelectasis and pleural effusion left Qualifiers: Pneumonia type: due to unspecified organism Laterality: right Lung location: upper lobe of lung Qualified Code(s): J18.9 - Pneumonia, unspecified organism (23) UTI (urinary tract infection) SNOMED Code(s): 99618281 ICD Code: N39.0 - URINARY TRACT INFECTION, SITE NOT SPECIFIED Status: Resolved Priority: High Current Visit: Yes Qualifiers: Urinary tract infection type: acute cystitis Hematuria presence: without hematuria Qualified Code(s): N30.00 - Acute cystitis without hematuria (24) Status post-operative repair of closed fracture of left hip SNOMED Code(s): 711254521 ICD Code: Z98.890 - OTHER SPECIFIED POSTPROCEDURAL STATES; Z87.81 - PERSONAL HISTORY OF (HEALED) TRAUMATIC FRACTURE Status: Acute Current Visit: Yes (25) Hypokalemia SNOMED Code(s): 11611761 ICD Code: E87.6 - HYPOKALEMIA Status: Acute Priority: Medium Current Visit: No Problem Details: - Patient Summary/Data Consults: Consultations 01/03/21 22:10 OT Evaluation and Treatment [CONS] Routine PT Evaluation and Treatment [CONS] Routine 01/04/21 08:51 Consult to Case Management/Cyber Incident Handler [CONS] Routine 01/04/21 08:55 Consult to Physician [CONS] Routine Labs Pending at D/C: None Recommended Follow-up Testing/Procedures: Follow-up with primary care provider within 5-7 days of discharge, sooner if needed. -Recommend repeat CBC, CMP, magnesium at that visit. Consider repeat CXR. Follow-up with Dr. Huertas, orthopedics, as scheduled. Hospital Course: This is an 89-year-old female who presented to ED on 01/04/2021 after a fall at [facility] where she resides. She is noted have a skin tear on her left elbow which was secured with Steri-Strips and covered in gauze. She is noted to have an acute complex proximal left femoral fracture and orthopedics was consulted in the ER. Original plan was for patient to undergo surgery on 01/06/21 as the patient is on Plavix and that need to be held. She was requiring 3 L of oxygen and an I-S was ordered. LFTs and bilirubin were noted to be elevated but these were trending downward. After admission it was noted that her renal function was getting progressively worse. Her BNP had been normal x2 and decision was made to give patient IV fluids for hydration. Unfortunately patient's oxygen saturations dropped significantly and she was requiring 6 L per nasal cannula. Surgery was then postponed until 01/10/2021. Prior echo was reviewed and showed diastolic heart failure. Chest x-rays obtained showing an increased density within the right upper chest due to either pneumonia or changes of aspiration, atelectasis within both lung bases, and increased central lung markings possibly due to pulmonary vascular congestion. Follow-up echo was ordered and patient was given Lasix with good urine output. Echo obtained on 01/07/2021: 1. Left ventricular ejection fraction, by visual estimation, is 60 to 65% 2. Normal left ventricular systolic function. 3. Mild proximal septal hypertrophy. 4. Normal pattern of LV diastolic filling. 5. Normal right ventricular systolic function. 6. There is mild aortic valve sclerosis without stenosis. 7. Trace mitral valve regurgitation. 8. Right ventricular systolic pressure is moderately to severely elevated at 46.6 mmHg. 9. No regional wall motion abnormalities. Patient was started on Zosyn due to concerns over aspiration. Urine culture has been ordered on admission and was growing >100 CFUs of Aerococcus Urinae. Her insulin was cut as patient was somewhat sedated and not eating well prior to surgery. She underwent Femur intramedullary nailing hip gamma short on 01/10/21. Postsurgically she has continued to do quite well. She has continued to require oxygen at 2 to 3 L and this will be continued at SNF. Per the patient's daughter this is not new for the patient as she has required oxygen in the past. She was started on 81 mg ASA twice daily and her home Plavix was resumed postsurgically. This was discussed with orthopedics prior to resuming. There was some confusion about whether or not the patient was requiring thickened liquids as she had apparently been on it in the past. Higher to surgery she was somewhat sedated from pain medications and reportedly had an episode of coughing. Since then there have been no concerns and per dietitian patient has been advanced to thin liquids at SNF prior to admission. She will therefore be discharged on diabetic diet with thin liquids. She completed her pneumonia and UTI treatment while here and will not require antibiotic at discharge. She has been working with PT/OT while here and this should be continued at SNF. Per the daughter patient had difficulty with mobility prior to admission and was requiring assistance to transfer. She is now alert and back to her baseline. We discharged on 81 mg aspirin twice daily as mentioned prior. This should continue for a total of 35 days per surgery recommendation. She will also be discharged on 100 mg p.o. twice daily Colace, 10 mg 3 times daily as needed Flexeril, 5 mg p.o. every 8 hours as needed oxycodone and 650 mg p.o. every 4 hours as needed Tylenol for pain. Recommend follow-up with primary care provider within 5 to 7 days of discharge, sooner if needed. Recommend repeat CBC, CMP, magnesium, and consider repeat follow-up yasir st x-ray at that time. Recommend follow-up with orthopedics as scheduled. She was advised to continue to utilize her incentive spirometer and Acapella for the next 1 to 2 weeks or until symptoms resolve. She was advised to contact her primary care provider or return to the emergency room should symptoms return or worsen. Home medications were otherwise continued. Recommend she check her blood sugars 4 times daily before meals and bedtime. She was discharged back to [facility] today. - Patient Instructions Diet: Diabetic Diet Activity: As Tolerated, Full Weight Bearing Driving: Do Not Drive Wound/Incision Care: Do NOT Change Dressing Notify Provider of: Fever, Increased Pain, Nausea and/or Vomiting Other/Special Instructions: Follow-up with primary care provider within 5-7 days of discharge, sooner if needed. Follow-up with orhtopedics as scheduled. Resume home medicaitons as directed. Continue PT/OT at SNF. Continue to utilize Incentive spirometer (clear blue device you inhale through) and acapella (green tube you blow through) for 1-2 weeks or until symptoms resolve. Should symptoms return or worsen contact primary care provider or return to the Emergency Department. - Discharge Plan *PRESCRIPTION DRUG MONITORING PROGRAM REVIEWED*: No *COPY OF PRESCRIPTION DRUG MONITORING REPORT IN PATIENT [place]: No Prescriptions/Med Rec: Aspirin 81 mg PO BID #67 tab.chew Docusate Sodium [Colace] 100 mg PO BID #20 cap Cyclobenzaprine [Flexeril] 10 mg PO TID PRN #10 tablet PRN Reason: muscle spasms oxyCODONE 5 mg PO Q8H PRN #15 tablet PRN Reason: Pain (Moderate 4-6) Acetaminophen [Tylenol] 650 mg PO Q4H PRN #30 tablet PRN Reason: Pain/Fever Home Medications: Home Meds Clopidogrel [Plavix] 75 mg PO DAILY 10/20/15 [History] Gabapentin [Neurontin] 600 mg PO BID 10/20/15 [History] Insulin Aspart [Novolog Flexpen] 13 unit SQ TID 10/20/15 [History] Acetaminophen 500 mg PO BEDTIME 07/12/16 [History] Calcium Carbonate [Tums] 400 mg PO Q4H PRN 07/12/16 [History] Vitamin E 400 unit PO DAILY 07/12/16 [History] Furosemide [Lasix] 20 mg PO ASDIRECTED PRN 04/29/19 [History] Furosemide [Lasix] 20 mg PO DAILY 04/29/19 [History] Insulin Degludec [Tresiba] 20 unit SQ BEDTIME 04/29/19 [History] MO/Pet,Wh/Phenylephrine/Shk Lv [Preparation H Oint] 1 appful RECTAL ASDIRECTED PRN 04/29/19 [History] Metoprolol Succinate 50 mg PO DAILY 04/29/19 [History] polyethylene glycoL 3350 [MiraLAX] 17 gm PO ASDIRECTED PRN 04/29/19 [History] Albuterol/Ipratropium [DuoNeb 3.0-0.5 MG/3 ML] 3 ml NEB QIDRT #120 neb 05/06/19 [Rx] Spironolactone [Aldactone] 50 mg PO DAILY #30 tablet 05/06/19 [Rx] Insulin Aspart [NovoLOG] 1 dose SUBCUT TID 08/31/20 [History] Acetaminophen [Tylenol] 650 mg PO Q4H PRN #30 tablet 01/12/21 [Rx] Aspirin 81 mg PO BID #67 tab.chew 01/12/21 [Rx] Cyclobenzaprine [Flexeril] 10 mg PO TID PRN #10 tablet 01/12/21 [Rx] Docusate Sodium [Colace] 100 mg PO BID #20 cap 01/12/21 [Rx] oxyCODONE 5 mg PO Q8H PRN #15 tablet 01/12/21 [Rx] Oxygen Therapy Mode: Nasal Cannula Oxygen Flow Rate (L/min): 3 (2-3L as needed) Maintain SpO2% greater than: 90 Patient Handouts: Heart Failure Action Plan, Hip Fracture Treated With ORIF Referrals: Johnny Huertas MD [Physician] - 01/19/21 12:30 pm (Patient will be seeing April Martell PA-C.) Dudley Winchester MD [Primary Care Provider] - 01/19/21 4:00 pm (Hospital follow-up appointment.) - Discharge Summary/Plan Comment DC Time >30 min.: Yes (45 minutes ) - General Info Date of Service: 01/12/21 Admission Dx/Problem (Free Text: Admission Diagnosis/Problem Admission Diagnosis/Problem Hip fracture requiring operative repair Functional Status: Reports: Pain Controlled, Tolerating Diet, Urinating. Denies: Ambulating (baseline ), New Symptoms - Review of Systems General: Reports: Weakness (improving ). Denies: Fever, Fatigue, Malaise, Chills HEENT: Reports: No Symptoms. Denies: Headaches, Sore Throat Pulmonary: Reports: No Symptoms. Denies: Shortness of Breath, Cough, Sputum, Wheezing Cardiovascular: Reports: No Symptoms. Denies: Chest Pain, Palpitations, Dyspnea on Exertion Gastrointestinal: Reports: No Symptoms. Denies: Abdominal Pain, Constipation, Diarrhea, Nausea, Vomiting Genitourinary: Reports: No Symptoms. Denies: Pain Musculoskeletal: Reports: Leg Pain (Bilateral ) Skin: Reports: No Symptoms. Denies: Cyanosis Neurological: Reports: Pre-Existing Deficit, Difficulty Walking, Weakness, Gait Disturbance. Denies: Confusion, Numbness, Tingling Psychiatric: Reports: No Symptoms - Patient Data Vitals - Most Recent: Last Vital Signs Temp 98.1 F 01/12/21 05:32 Pulse 65 01/12/21 05:32 Resp 18 01/12/21 05:32 BP 124/51 L 01/12/21 05:32 Pulse Ox 93 L 01/12/21 06:10 Weight - Most Recent: 161 lb 3.2 oz I&O - Last 24 hours: Intake & Output 01/11/21 01/12/21 01/12/21 22:59 06:59 14:59 Intake Total 820 500 Balance 820 500 Lab Results - Last 24 hrs: Laboratory Results - last 24 hr 01/11/21 01/11/21 01/11/21 Range/Units 06:45 12:20 16:52 WBC (3.98-10.04) K/mm3 RBC (3.98-5.22) M/mm3 Hgb (11.2-15.7) gm/dl Hct (34.1-44.9) % MCV (79.4-94.8) fl MCH (25.6-32.2) pg MCHC (32.2-35.5) g/dl RDW Std Deviation (36.4-46.3) fL Plt Count (182-369) K/mm3 MPV (9.4-12.3) fl Neut % (Auto) (34.0-71.1) % Lymph % (Auto) (19.3-51.7) % [place] % (Auto) (4.7-12.5) % Eos % (Auto) (0.7-5.8) Baso % (Auto) (0.1-1.2) % Neut # (Auto) (1.56-6.13) K/mm3 Lymph # (Auto) (1.18-3.74) K/mm3 [place] # (Auto) (0.24-0.36) K/mm3 Eos # (Auto) (0.04-0.36) K/mm3 Baso # (Auto) (0.01-0.08) K/mm3 Manual Slide Review Sodium (136-145) mEq/L Potassium (3.5-5.1) mEq/L Chloride (98-107) mEq/L Carbon Dioxide (21-32) mEq/L Anion Gap (5-15) BUN (7-18) mg/dL Creatinine (0.55-1.02) mg/dL Est Cr Clr Drug Dosing mL/min Estimated GFR (MDRD) (>60) mL/min BUN/Creatinine Ratio (14-18) Glucose (83-115) mg/dL POC Glucose 332 H 350 H 274 H (83-110) mg/dL Calcium (8.5-10.1) mg/dL Magnesium (1.8-2.4) mg/dl 01/11/21 01/12/21 01/12/21 Range/Units 20:30 05:01 05:01 WBC 13.27 H (3.98-10.04) K/mm3 RBC 3.14 L (3.98-5.22) M/mm3 Hgb 9.4 L (11.2-15.7) gm/dl Hct 29.7 L (34.1-44.9) % MCV 94.6 (79.4-94.8) fl MCH 29.9 (25.6-32.2) pg MCHC 31.6 L (32.2-35.5) g/dl RDW Std Deviation 49.3 H (36.4-46.3) fL Plt Count 212 (182-369) K/mm3 MPV 11.3 (9.4-12.3) fl Neut % (Auto) 74.8 H (34.0-71.1) % Lymph % (Auto) 14.8 L (19.3-51.7) % [place] % (Auto) 5.0 (4.7-12.5) % Eos % (Auto) 3.0 (0.7-5.8) Baso % (Auto) 0.2 (0.1-1.2) % Neut # (Auto) 9.93 H (1.56-6.13) K/mm3 Lymph # (Auto) 1.97 (1.18-3.74) K/mm3 [place] # (Auto) 0.66 H (0.24-0.36) K/mm3 Eos # (Auto) 0.40 H (0.04-0.36) K/mm3 Baso # (Auto) 0.02 (0.01-0.08) K/mm3 Manual Slide Review Normal smear Sodium 141 (136-145) mEq/L Potassium 3.3 L (3.5-5.1) mEq/L Chloride 102 (98-107) mEq/L Carbon Dioxide 26 (21-32) mEq/L Anion Gap 16.3 H (5-15) BUN 42 H (7-18) mg/dL Creatinine 2.1 H (0.55-1.02) mg/dL Est Cr Clr Drug Dosing 13.04 mL/min Estimated GFR (MDRD) 22 (>60) mL/min BUN/Creatinine Ratio 20.0 H (14-18) Glucose 405 H 171 H (83-115) mg/dL POC Glucose (83-110) mg/dL Calcium 8.8 (8.5-10.1) mg/dL Magnesium 2.4 (1.8-2.4) mg/dl 01/12/21 Range/Units 05:36 WBC (3.98-10.04) K/mm3 RBC (3.98-5.22) M/mm3 Hgb (11.2-15.7) gm/dl Hct (34.1-44.9) % MCV (79.4-94.8) fl MCH (25.6-32.2) pg MCHC (32.2-35.5) g/dl RDW Std Deviation (36.4-46.3) fL Plt Count (182-369) K/mm3 MPV (9.4-12.3) fl Neut % (Auto) (34.0-71.1) % Lymph % (Auto) (19.3-51.7) % [place] % (Auto) (4.7-12.5) % Eos % (Auto) (0.7-5.8) Baso % (Auto) (0.1-1.2) % Neut # (Auto) (1.56-6.13) K/mm3 Lymph # (Auto) (1.18-3.74) K/mm3 [place] # (Auto) (0.24-0.36) K/mm3 Eos # (Auto) (0.04-0.36) K/mm3 Baso # (Auto) (0.01-0.08) K/mm3 Manual Slide Review Sodium (136-145) mEq/L Potassium (3.5-5.1) mEq/L Chloride (98-107) mEq/L Carbon Dioxide (21-32) mEq/L Anion Gap (5-15) BUN (7-18) mg/dL Creatinine (0.55-1.02) mg/dL Est Cr Clr Drug Dosing mL/min Estimated GFR (MDRD) (>60) mL/min BUN/Creatinine Ratio (14-18) Glucose (83-115) mg/dL POC Glucose 177 H (83-110) mg/dL Calcium (8.5-10.1) mg/dL Magnesium (1.8-2.4) mg/dl Med Orders - Current: Current Medications Acetaminophen (Tylenol) 650 mg PO Q4H PRN PRN Reason: Pain/Fever Last Admin: 01/11/21 23:08 Dose: 650 mg Documented by: Albuterol/Ipratropium (Duoneb 3.0-0.5 Mg/3 Ml) 3 ml NEB Q4H PRN PRN Reason: Shortness Of Breath/wheezing Aspirin (Aspirin) 81 mg PO BID [facility] Stop: 02/15/21 09:01 Last Admin: 01/11/21 20:08 Dose: 81 mg Documented by: Calcium Carbonate/Glycine (Tums) 500 mg PO Q4H PRN PRN Reason: Heartburn Clopidogrel Bisulfate (Plavix) 75 mg PO DAILY [facility] Last Admin: 01/11/21 08:16 Dose: 75 mg Documented by: Cyclobenzaprine HCl (Flexeril) 10 mg PO TID PRN PRN Reason: muscle spasms Last Admin: 01/11/21 20:09 Dose: 10 mg Documented by: Docusate Sodium (Colace) 100 mg PO BID [facility] Last Admin: 01/11/21 20:09 Dose: 100 mg Documented by: Famotidine (Pepcid) 20 mg PO Q48H [facility] Last Admin: 01/10/21 08:39 Dose: 20 mg Documented by: Furosemide (Lasix) 40 mg PO DAILY [facility] Last Admin: 01/11/21 08:16 Dose: 40 mg Documented by: Gabapentin (Neurontin) 100 mg PO BID [facility] Last Admin: 01/11/21 20:08 Dose: 100 mg Documented by: Hydralazine HCl (Apresoline) 10 mg IVPUSH Q4H PRN PRN Reason: Hypertension Hydromorphone HCl (Dilaudid) 0.5 mg IVPUSH Q4H PRN PRN Reason: Pain (severe 7-10) Last Admin: 01/11/21 02:51 Dose: 0.5 mg Documented by: Promethazine HCl 12.5 mg/ (Sodium Chloride) 50.5 mls @ 100 mls/hr IV Q6H PRN PRN Reason: Nausea/Vomiting Piperacillin Sod/Tazobactam (Sod 4.5 gm/ Sodium Chloride) 100 mls @ 25 mls/hr IV Q12H [facility] Last Admin: 01/11/21 20:08 Dose: 25 mls/hr Documented by: Insulin Glargine (Lantus) 15 unit SUBCUT BID [facility] Last Admin: 01/11/21 21:09 Dose: 15 units Documented by: Insulin Human Lispro (Humalog) 0 unit SUBCUT QIDACANDBED [facility]; Protocol Last Admin: 01/11/21 21:10 Dose: 10 units Documented by: Magnesium Hydroxide (Milk Of Magnesia) 30 ml PO DAILY PRN PRN Reason: Constipation Last Admin: 01/07/21 16:09 Dose: 30 ml Documented by: Metoprolol Succinate (Toprol Xl) 50 mg PO DAILY [facility] Last Admin: 01/11/21 08:16 Dose: 50 mg Documented by: Oxycodone HCl (Oxycodone) 5 mg PO Q6H PRN PRN Reason: Pain (moderate 4-6) Last Admin: 01/11/21 23:09 Dose: 5 mg Documented by: Polyethylene Glycol (Miralax) 17 gm PO ASDIRECTED PRN PRN Reason: Constipation Potassium Chloride (Klor-Con M20) 40 meq PO ONETIME ONE Stop: 01/12/21 09:01 Discontinued Medications Acetaminophen (Tylenol) 650 mg PO Q6H PRN PRN Reason: Pain (Mild 1-3)/fever Last Admin: 01/04/21 12:34 Dose: 650 mg Documented by: Acetaminophen (Tylenol) 650 mg PO Q4H PRN PRN Reason: Fever Last Admin: 01/09/21 21:00 Dose: 650 mg Documented by: Bupivacaine HCl (Marcaine 0.5%) Confirm Administered Dose 0 ml .ROUTE .STK-MED ONE Stop: 01/06/21 09:56 Bupivacaine HCl (Sensorcaine-Mpf 0.25%) Confirm Administered Dose 0 ml .ROUTE .STK-MED ONE Stop: 01/10/21 12:57 Bupivacaine HCl (Sensorcaine-Mpf 0.25%) Confirm Administered Dose 30 ml .ROUTE .STK-MED ONE Stop: 01/10/21 13:29 Last Admin: 01/10/21 15:00 Dose: 15 ml Documented by: Calcium Carbonate/Glycine (Tums) 400 mg PO Q4H PRN PRN Reason: Heartburn Dexamethasone (Dexamethasone) Confirm Administered Dose 20 mg .ROUTE .STK-MED ONE Stop: 01/10/21 13:46 Dexmedetomidine HCl (Precedex) Confirm Administered Dose 200 mcg .ROUTE .STK-MED ONE Stop: 01/10/21 12:35 Docusate Sodium (Colace) 100 mg PO BID PRN PRN Reason: Constipation Last Admin: 01/06/21 15:57 Dose: 100 mg Documented by: Famotidine (Pepcid) 20 mg PO DAILY [facility] Last Admin: 01/04/21 09:57 Dose: 20 mg Documented by: Fentanyl (Sublimaze) Confirm Administered Dose 0 mcg .ROUTE .STK-MED ONE Stop: 01/06/21 10:46 Fentanyl (Sublimaze) Confirm Administered Dose 100 mcg .ROUTE .STK-MED ONE Stop: 01/10/21 12:53 Furosemide (Lasix) 40 mg IVPUSH NOW ONE Stop: 01/03/21 21:42 Last Admin: 01/03/21 22:00 Dose: 40 mg Documented by: Furosemide (Lasix) 20 mg PO DAILY [facility] Last Admin: 01/04/21 13:04 Dose: Not Given Documented by: Furosemide (Lasix) 20 mg IVPUSH ONETIME ONE Stop: 01/04/21 18:01 Last Admin: 01/04/21 18:47 Dose: 20 mg Documented by: Furosemide (Lasix) 40 mg IVPUSH NOW ONE Stop: 01/06/21 11:15 Last Admin: 01/06/21 11:22 Dose: 40 mg Documented by: Furosemide (Lasix) 40 mg IVPUSH NOW ONE Stop: 01/07/21 08:13 Last Admin: 01/07/21 08:29 Dose: 40 mg Documented by: Furosemide (Lasix) 40 mg PO DAILY [facility] Last Admin: 01/08/21 09:04 Dose: 40 mg Documented by: Gabapentin (Neurontin) 600 mg PO BID [facility] Last Admin: 01/04/21 08:10 Dose: 600 mg Documented by: Gabapentin (Neurontin) 600 mg PO BID [facility] Last Admin: 01/08/21 09:04 Dose: 600 mg Documented by: Heparin Sodium (Porcine) (Heparin Sodium) 5,000 units SUBCUT Q8H [facility] Stop: 01/05/21 23:00 Last Admin: 01/05/21 21:18 Dose: 5,000 units Documented by: Heparin Sodium (Porcine) (Heparin Sodium) 5,000 units SUBCUT Q8H [facility] Last Admin: 01/09/21 10:58 Dose: 5,000 units Documented by: Hydromorphone HCl (Dilaudid) 0.25 mg IVPUSH ONETIME ONE Stop: 01/03/21 20:02 Last Admin: 01/03/21 20:10 Dose: 0.25 mg Documented by: Hydromorphone HCl (Dilaudid) 0.25 mg IVPUSH ONETIME ONE Stop: 01/03/21 22:22 Last Admin: 01/03/21 23:17 Dose: 0.25 mg Documented by: Sodium Chloride (Normal Saline) 1,000 mls @ 65 mls/hr IV ASDIRECTED [facility] Lactated Ringer's (Ringers, Lactated) 1,000 mls @ 50 mls/hr IV ASDIRECTED [facility] Last Admin: 01/04/21 14:18 Dose: 50 mls/hr Documented by: Lactated Ringer's (Ringers, Lactated) 1,000 mls @ 65 mls/hr IV ASDIRECTED [facility] Last Admin: 01/05/21 06:46 Dose: 65 mls/hr Documented by: Lactated Ringer's (Ringers, Lactated) 1,000 mls @ 100 mls/hr IV ASDIRECTED [facility] Stop: 01/05/21 19:29 Last Admin: 01/05/21 09:44 Dose: 100 mls/hr Documented by: Lactated Ringer's (Ringers, Lactated) 1,000 mls @ 75 mls/hr IV ASDIRECTED [facility] Last Admin: 01/06/21 07:37 Dose: 75 mls/hr Documented by: Piperacillin Sod/Tazobactam (Sod 4.5 gm/ Sodium Chloride) 100 mls @ 25 mls/hr IV Q8H [facility] Piperacillin Sod/Tazobactam (Sod 4.5 gm/ Sodium Chloride) 100 mls @ 200 mls/hr IV ONETIME ONE Stop: 01/07/21 08:29 Last Admin: 01/07/21 08:35 Dose: 200 mls/hr Documented by: Sodium Chloride (Normal Saline) 500 mls @ 45 mls/hr IV ASDIRECTED [facility] Stop: 01/09/21 07:37 Last Admin: 01/08/21 21:56 Dose: 45 mls/hr Documented by: Potassium Chloride 20 meq/ (Dextrose/Water) 1,010 mls @ 50 mls/hr IV ASDIRECTED [facility] Stop: 01/10/21 08:41 Potassium Chloride/Dextrose/Sod Cl (D5 1/2 Ns W/ 10 Meq/L Kcl) 1,000 mls @ 50 mls/hr IV ASDIRECTED [facility] Last Admin: 01/10/21 09:08 Dose: 50 mls/hr Documented by: Lidocaine HCl (Xylocaine-Mpf 1%) Confirm Administered Dose 4 mls @ as directed .ROUTE .STK-MED ONE Stop: 01/10/21 12:54 Insulin Glargine (Lantus) 15 unit SUBCUT DAILY [facility] Last Admin: 01/07/21 08:01 Dose: Not Given Documented by: Insulin Glargine (Lantus) 7.5 unit SUBCUT ONETIME ONE Stop: 01/07/21 09:01 Last Admin: 01/07/21 08:16 Dose: 7.5 units Documented by: Insulin Glargine (Lantus) 15 unit SUBCUT DAILY [facility] Insulin Glargine (Lantus) 7.5 unit SUBCUT DAILY [facility] Last Admin: 01/08/21 09:06 Dose: 7.5 units Documented by: Insulin Glargine (Lantus) 10 unit SUBCUT BID [facility] Last Admin: 01/09/21 08:36 Dose: 10 units Documented by: Insulin Glargine (Lantus) 10 unit SUBCUT NOW STA Stop: 01/08/21 19:06 Last Admin: 01/08/21 19:28 Dose: 10 unit Documented by: Insulin Glargine (Lantus) 13 unit SUBCUT BID [facility] Last Admin: 01/10/21 21:03 Dose: 13 units Documented by: Insulin Glargine (Lantus) 5 unit SUBCUT NOW STA Stop: 01/09/21 21:12 Last Admin: 01/09/21 22:33 Dose: 5 units Documented by: Insulin Human Lispro (Humalog) 0 unit SUBCUT QIDACANDBED [facility]; Protocol Last Admin: 01/08/21 14:23 Dose: Not Given Documented by: Insulin Human Lispro (Humalog) 0 unit SUBCUT QIDACANDBED [facility]; Protocol Ketamine HCl (Ketalar) Confirm Administered Dose 0 mg .ROUTE .STK-MED ONE Stop: 01/06/21 10:47 Ketamine HCl (Ketalar) Confirm Administered Dose 500 mg .ROUTE .STK-MED ONE Stop: 01/10/21 12:54 Lidocaine HCl (Xylocaine 1%) 10 ml INJECT ONETIME ONE Stop: 01/03/21 18:58 Last Admin: 01/04/21 00:57 Dose: Not Given Documented by: Lidocaine/Epinephrine (Xylocaine-Mpf 2%-Epi 1:200,000) Confirm Administered Dose 20 ml .ROUTE .STK-MED ONE Stop: 01/06/21 10:13 Metoprolol Tartrate (Lopressor) 5 mg IVPUSH Q5M PRN PRN Reason: Hypertension Stop: 01/10/21 18:00 Last Admin: 01/10/21 16:21 Dose: 1 mg Documented by: Midazolam HCl (Versed 1 Mg/Ml) Confirm Administered Dose 0 mg .ROUTE .STK-MED ONE Stop: 01/06/21 10:46 Midazolam HCl (Versed 1 Mg/Ml) Confirm Administered Dose 2 mg .ROUTE .STK-MED ONE Stop: 01/10/21 12:54 Non-Formulary Medication (Insulin Degludec [Tresiba]) 15 unit SQ DAILY [facility] Ondansetron HCl (Zofran) 4 mg IVPUSH ONETIME ONE Stop: 01/03/21 18:48 Last Admin: 01/03/21 18:51 Dose: 4 mg Documented by: Ondansetron HCl (Zofran) Confirm Administered Dose 4 mg .ROUTE .STK-MED ONE Stop: 01/03/21 19:51 Last Admin: 01/03/21 20:11 Dose: Not Given Documented by: Ondansetron HCl (Zofran) 4 mg IVPUSH ONETIME ONE Stop: 01/03/21 20:07 Last Admin: 01/03/21 20:11 Dose: 4 mg Documented by: Potassium Chloride (Klor-Con M20) 40 meq PO DAILY [facility] Stop: 01/09/21 12:25 Last Admin: 01/09/21 13:23 Dose: Not Given Documented by: Potassium Chloride (Klor-Con M20) 40 meq PO ONETIME ONE Stop: 01/09/21 12:39 Last Admin: 01/09/21 13:10 Dose: 40 meq Documented by: Propofol (Diprivan 20 Ml) Confirm Administered Dose 200 mg .ROUTE .STK-MED ONE Stop: 01/10/21 12:54 Ropivacaine (Naropin 0.5%) Confirm Administered Dose 30 ml .ROUTE .STK-MED ONE Stop: 01/06/21 09:57 Ropivacaine (Naropin 0.5%) Confirm Administered Dose 30 ml .ROUTE .STK-MED ONE Stop: 01/10/21 12:35 Sodium Polystyrene Sulfonate (Kayexalate) 15 gm PO ONETIME ONE Stop: 01/04/21 08:50 Last Admin: 01/04/21 09:57 Dose: 15 gm Documented by: Spironolactone (Aldactone) 50 mg PO DAILY [facility] Last Admin: 01/04/21 08:10 Dose: 50 mg Documented by: Tamsulosin HCl (Flomax) 0.4 mg PO DAILY [facility] Last Admin: 01/04/21 17:44 Dose: Not Given Documented by: - Exam Quality Assessment: Reports: Supplemental Oxygen (3L), DVT Prophylaxis. Denies: Urine Catheter General: Reports: Alert, Oriented, Cooperative, No Acute Distress HEENT: Reports: Pupils Equal, Pupils Reactive, Mucous Membr. Moist/Hall Neck: Reports: Supple, Trachea Midline Lungs: Reports: Clear to Auscultation, Normal Respiratory Effort Cardiovascular: Reports: Regular Rate, Regular Rhythm GI/Abdominal Exam: Normal Bowel Sounds, Soft, Non-Tender, No Distention (Female) Exam: Deferred Rectal (Female) Exam: Normal Exam, Normal Rectal Tone Back Exam: Reports: Normal Inspection, Full Range of Motion Extremities: Normal Inspection, Normal Range of Motion, Non-Tender, No Pedal Edema, Normal Capillary Refill Skin: Reports: Warm, Dry, Intact Neurological: Reports: No New Focal Deficit Psy/Mental Status: Reports: Alert, Normal Affect, Normal Mood
[2021-01-12] MEDS: Insulin Glarg,Human.Rec.Analog 100 Unit/ML SUBCUT SCH (08:13)
[2021-01-12] MEDS: Piperacillin/Tazobactam 4.5 GM in Sodium Chloride 0.9% 100 ML IV SCH (08:14)
[2021-01-12] MEDS ORDERED: Potassium Chloride 20 MEQ Tab.ER PO ONE (09:00)
--- NOTE | 2021-01-12 09:22 | PCM.SURGPN ---
- General Info Date of Service: 01/12/21 POD#: 2 Functional Status: Reports: Pain Controlled, Tolerating Diet, Other (The pt was resting comfortably in chair.) - Patient Data Vitals - Most Recent: Last Vital Signs Temp 98.1 F 01/12/21 05:32 Pulse 59 L 01/12/21 08:34 Resp 18 01/12/21 05:32 BP 124/51 L 01/12/21 05:32 Pulse Ox 98 01/12/21 08:58 Weight - Most Recent: 161 lb 3.2 oz I&O - Last 24 Hours: Intake & Output 01/11/21 01/12/21 01/12/21 22:59 06:59 14:59 Intake Total 820 500 Balance 820 500 Lab Results Last 24 Hrs: Laboratory Results - last 24 hr 01/11/21 01/11/21 01/11/21 Range/Units 06:45 12:20 16:52 WBC (3.98-10.04) K/mm3 RBC (3.98-5.22) M/mm3 Hgb (11.2-15.7) gm/dl Hct (34.1-44.9) % MCV (79.4-94.8) fl MCH (25.6-32.2) pg MCHC (32.2-35.5) g/dl RDW Std Deviation (36.4-46.3) fL Plt Count (182-369) K/mm3 MPV (9.4-12.3) fl Neut % (Auto) (34.0-71.1) % Lymph % (Auto) (19.3-51.7) % [place] % (Auto) (4.7-12.5) % Eos % (Auto) (0.7-5.8) Baso % (Auto) (0.1-1.2) % Neut # (Auto) (1.56-6.13) K/mm3 Lymph # (Auto) (1.18-3.74) K/mm3 [place] # (Auto) (0.24-0.36) K/mm3 Eos # (Auto) (0.04-0.36) K/mm3 Baso # (Auto) (0.01-0.08) K/mm3 Manual Slide Review Sodium (136-145) mEq/L Potassium (3.5-5.1) mEq/L Chloride (98-107) mEq/L Carbon Dioxide (21-32) mEq/L Anion Gap (5-15) BUN (7-18) mg/dL Creatinine (0.55-1.02) mg/dL Est Cr Clr Drug Dosing mL/min Estimated GFR (MDRD) (>60) mL/min BUN/Creatinine Ratio (14-18) Glucose (83-115) mg/dL POC Glucose 332 H 350 H 274 H (83-110) mg/dL Calcium (8.5-10.1) mg/dL Magnesium (1.8-2.4) mg/dl 01/11/21 01/12/21 01/12/21 Range/Units 20:30 05:01 05:01 WBC 13.27 H (3.98-10.04) K/mm3 RBC 3.14 L (3.98-5.22) M/mm3 Hgb 9.4 L (11.2-15.7) gm/dl Hct 29.7 L (34.1-44.9) % MCV 94.6 (79.4-94.8) fl MCH 29.9 (25.6-32.2) pg MCHC 31.6 L (32.2-35.5) g/dl RDW Std Deviation 49.3 H (36.4-46.3) fL Plt Count 212 (182-369) K/mm3 MPV 11.3 (9.4-12.3) fl Neut % (Auto) 74.8 H (34.0-71.1) % Lymph % (Auto) 14.8 L (19.3-51.7) % [place] % (Auto) 5.0 (4.7-12.5) % Eos % (Auto) 3.0 (0.7-5.8) Baso % (Auto) 0.2 (0.1-1.2) % Neut # (Auto) 9.93 H (1.56-6.13) K/mm3 Lymph # (Auto) 1.97 (1.18-3.74) K/mm3 [place] # (Auto) 0.66 H (0.24-0.36) K/mm3 Eos # (Auto) 0.40 H (0.04-0.36) K/mm3 Baso # (Auto) 0.02 (0.01-0.08) K/mm3 Manual Slide Review Normal smear Sodium 141 (136-145) mEq/L Potassium 3.3 L (3.5-5.1) mEq/L Chloride 102 (98-107) mEq/L Carbon Dioxide 26 (21-32) mEq/L Anion Gap 16.3 H (5-15) BUN 42 H (7-18) mg/dL Creatinine 2.1 H (0.55-1.02) mg/dL Est Cr Clr Drug Dosing 13.04 mL/min Estimated GFR (MDRD) 22 (>60) mL/min BUN/Creatinine Ratio 20.0 H (14-18) Glucose 405 H 171 H (83-115) mg/dL POC Glucose (83-110) mg/dL Calcium 8.8 (8.5-10.1) mg/dL Magnesium 2.4 (1.8-2.4) mg/dl 01/12/21 Range/Units 05:36 WBC (3.98-10.04) K/mm3 RBC (3.98-5.22) M/mm3 Hgb (11.2-15.7) gm/dl Hct (34.1-44.9) % MCV (79.4-94.8) fl MCH (25.6-32.2) pg MCHC (32.2-35.5) g/dl RDW Std Deviation (36.4-46.3) fL Plt Count (182-369) K/mm3 MPV (9.4-12.3) fl Neut % (Auto) (34.0-71.1) % Lymph % (Auto) (19.3-51.7) % [place] % (Auto) (4.7-12.5) % Eos % (Auto) (0.7-5.8) Baso % (Auto) (0.1-1.2) % Neut # (Auto) (1.56-6.13) K/mm3 Lymph # (Auto) (1.18-3.74) K/mm3 [place] # (Auto) (0.24-0.36) K/mm3 Eos # (Auto) (0.04-0.36) K/mm3 Baso # (Auto) (0.01-0.08) K/mm3 Manual Slide Review Sodium (136-145) mEq/L Potassium (3.5-5.1) mEq/L Chloride (98-107) mEq/L Carbon Dioxide (21-32) mEq/L Anion Gap (5-15) BUN (7-18) mg/dL Creatinine (0.55-1.02) mg/dL Est Cr Clr Drug Dosing mL/min Estimated GFR (MDRD) (>60) mL/min BUN/Creatinine Ratio (14-18) Glucose (83-115) mg/dL POC Glucose 177 H (83-110) mg/dL Calcium (8.5-10.1) mg/dL Magnesium (1.8-2.4) mg/dl Med Orders - Current: Current Medications Acetaminophen (Tylenol) 650 mg PO Q4H PRN PRN Reason: Pain/Fever Last Admin: 01/11/21 23:08 Dose: 650 mg Documented by: Albuterol/Ipratropium (Duoneb 3.0-0.5 Mg/3 Ml) 3 ml NEB Q4H PRN PRN Reason: Shortness Of Breath/wheezing Aspirin (Aspirin) 81 mg PO BID [facility] Stop: 02/15/21 09:01 Last Admin: 01/11/21 20:08 Dose: 81 mg Documented by: Calcium Carbonate/Glycine (Tums) 500 mg PO Q4H PRN PRN Reason: Heartburn Clopidogrel Bisulfate (Plavix) 75 mg PO DAILY [facility] Last Admin: 01/11/21 08:16 Dose: 75 mg Documented by: Cyclobenzaprine HCl (Flexeril) 10 mg PO TID PRN PRN Reason: muscle spasms Last Admin: 01/11/21 20:09 Dose: 10 mg Documented by: Docusate Sodium (Colace) 100 mg PO BID [facility] Last Admin: 01/11/21 20:09 Dose: 100 mg Documented by: Famotidine (Pepcid) 20 mg PO Q48H [facility] Last Admin: 01/10/21 08:39 Dose: 20 mg Documented by: Furosemide (Lasix) 40 mg PO DAILY [facility] Last Admin: 01/11/21 08:16 Dose: 40 mg Documented by: Gabapentin (Neurontin) 100 mg PO BID [facility] Last Admin: 01/11/21 20:08 Dose: 100 mg Documented by: Hydralazine HCl (Apresoline) 10 mg IVPUSH Q4H PRN PRN Reason: Hypertension Hydromorphone HCl (Dilaudid) 0.5 mg IVPUSH Q4H PRN PRN Reason: Pain (severe 7-10) Last Admin: 01/11/21 02:51 Dose: 0.5 mg Documented by: Promethazine HCl 12.5 mg/ (Sodium Chloride) 50.5 mls @ 100 mls/hr IV Q6H PRN PRN Reason: Nausea/Vomiting Piperacillin Sod/Tazobactam (Sod 4.5 gm/ Sodium Chloride) 100 mls @ 25 mls/hr IV Q12H [facility] Last Admin: 01/12/21 08:14 Dose: 25 mls/hr Documented by: Insulin Glargine (Lantus) 15 unit SUBCUT BID [facility] Last Admin: 01/12/21 08:13 Dose: 15 units Documented by: Insulin Human Lispro (Humalog) 0 unit SUBCUT QIDACANDBED [facility]; Protocol Last Admin: 01/12/21 08:13 Dose: 2 units Documented by: Magnesium Hydroxide (Milk Of Magnesia) 30 ml PO DAILY PRN PRN Reason: Constipation Last Admin: 01/07/21 16:09 Dose: 30 ml Documented by: Metoprolol Succinate (Toprol Xl) 50 mg PO DAILY [facility] Last Admin: 01/11/21 08:16 Dose: 50 mg Documented by: Oxycodone HCl (Oxycodone) 5 mg PO Q6H PRN PRN Reason: Pain (moderate 4-6) Last Admin: 01/11/21 23:09 Dose: 5 mg Documented by: Polyethylene Glycol (Miralax) 17 gm PO ASDIRECTED PRN PRN Reason: Constipation Discontinued Medications Acetaminophen (Tylenol) 650 mg PO Q6H PRN PRN Reason: Pain (Mild 1-3)/fever Last Admin: 01/04/21 12:34 Dose: 650 mg Documented by: Acetaminophen (Tylenol) 650 mg PO Q4H PRN PRN Reason: Fever Last Admin: 01/09/21 21:00 Dose: 650 mg Documented by: Bupivacaine HCl (Marcaine 0.5%) Confirm Administered Dose 0 ml .ROUTE .STK-MED ONE Stop: 01/06/21 09:56 Bupivacaine HCl (Sensorcaine-Mpf 0.25%) Confirm Administered Dose 0 ml .ROUTE .STK-MED ONE Stop: 01/10/21 12:57 Bupivacaine HCl (Sensorcaine-Mpf 0.25%) Confirm Administered Dose 30 ml .ROUTE .STK-MED ONE Stop: 01/10/21 13:29 Last Admin: 01/10/21 15:00 Dose: 15 ml Documented by: Calcium Carbonate/Glycine (Tums) 400 mg PO Q4H PRN PRN Reason: Heartburn Dexamethasone (Dexamethasone) Confirm Administered Dose 20 mg .ROUTE .STK-MED ONE Stop: 01/10/21 13:46 Dexmedetomidine HCl (Precedex) Confirm Administered Dose 200 mcg .ROUTE .STK-MED ONE Stop: 01/10/21 12:35 Docusate Sodium (Colace) 100 mg PO BID PRN PRN Reason: Constipation Last Admin: 01/06/21 15:57 Dose: 100 mg Documented by: Famotidine (Pepcid) 20 mg PO DAILY [facility] Last Admin: 01/04/21 09:57 Dose: 20 mg Documented by: Fentanyl (Sublimaze) Confirm Administered Dose 0 mcg .ROUTE .STK-MED ONE Stop: 01/06/21 10:46 Fentanyl (Sublimaze) Confirm Administered Dose 100 mcg .ROUTE .STK-MED ONE Stop: 01/10/21 12:53 Furosemide (Lasix) 40 mg IVPUSH NOW ONE Stop: 01/03/21 21:42 Last Admin: 01/03/21 22:00 Dose: 40 mg Documented by: Furosemide (Lasix) 20 mg PO DAILY [facility] Last Admin: 01/04/21 13:04 Dose: Not Given Documented by: Furosemide (Lasix) 20 mg IVPUSH ONETIME ONE Stop: 01/04/21 18:01 Last Admin: 01/04/21 18:47 Dose: 20 mg Documented by: Furosemide (Lasix) 40 mg IVPUSH NOW ONE Stop: 01/06/21 11:15 Last Admin: 01/06/21 11:22 Dose: 40 mg Documented by: Furosemide (Lasix) 40 mg IVPUSH NOW ONE Stop: 01/07/21 08:13 Last Admin: 01/07/21 08:29 Dose: 40 mg Documented by: Furosemide (Lasix) 40 mg PO DAILY [facility] Last Admin: 01/08/21 09:04 Dose: 40 mg Documented by: Gabapentin (Neurontin) 600 mg PO BID [facility] Last Admin: 01/04/21 08:10 Dose: 600 mg Documented by: Gabapentin (Neurontin) 600 mg PO BID [facility] Last Admin: 01/08/21 09:04 Dose: 600 mg Documented by: Heparin Sodium (Porcine) (Heparin Sodium) 5,000 units SUBCUT Q8H [facility] Stop: 01/05/21 23:00 Last Admin: 01/05/21 21:18 Dose: 5,000 units Documented by: Heparin Sodium (Porcine) (Heparin Sodium) 5,000 units SUBCUT Q8H [facility] Last Admin: 01/09/21 10:58 Dose: 5,000 units Documented by: Hydromorphone HCl (Dilaudid) 0.25 mg IVPUSH ONETIME ONE Stop: 01/03/21 20:02 Last Admin: 01/03/21 20:10 Dose: 0.25 mg Documented by: Hydromorphone HCl (Dilaudid) 0.25 mg IVPUSH ONETIME ONE Stop: 01/03/21 22:22 Last Admin: 01/03/21 23:17 Dose: 0.25 mg Documented by: Sodium Chloride (Normal Saline) 1,000 mls @ 65 mls/hr IV ASDIRECTED [facility] Lactated Ringer's (Ringers, Lactated) 1,000 mls @ 50 mls/hr IV ASDIRECTED [facility] Last Admin: 01/04/21 14:18 Dose: 50 mls/hr Documented by: Lactated Ringer's (Ringers, Lactated) 1,000 mls @ 65 mls/hr IV ASDIRECTED [facility] Last Admin: 01/05/21 06:46 Dose: 65 mls/hr Documented by: Lactated Ringer's (Ringers, Lactated) 1,000 mls @ 100 mls/hr IV ASDIRECTED [facility] Stop: 01/05/21 19:29 Last Admin: 01/05/21 09:44 Dose: 100 mls/hr Documented by: Lactated Ringer's (Ringers, Lactated) 1,000 mls @ 75 mls/hr IV ASDIRECTED [facility] Last Admin: 01/06/21 07:37 Dose: 75 mls/hr Documented by: Piperacillin Sod/Tazobactam (Sod 4.5 gm/ Sodium Chloride) 100 mls @ 25 mls/hr IV Q8H [facility] Piperacillin Sod/Tazobactam (Sod 4.5 gm/ Sodium Chloride) 100 mls @ 200 mls/hr IV ONETIME ONE Stop: 01/07/21 08:29 Last Admin: 01/07/21 08:35 Dose: 200 mls/hr Documented by: Sodium Chloride (Normal Saline) 500 mls @ 45 mls/hr IV ASDIRECTED [facility] Stop: 01/09/21 07:37 Last Admin: 01/08/21 21:56 Dose: 45 mls/hr Documented by: Potassium Chloride 20 meq/ (Dextrose/Water) 1,010 mls @ 50 mls/hr IV ASDIRECTED [facility] Stop: 01/10/21 08:41 Potassium Chloride/Dextrose/Sod Cl (D5 1/2 Ns W/ 10 Meq/L Kcl) 1,000 mls @ 50 mls/hr IV ASDIRECTED [facility] Last Admin: 01/10/21 09:08 Dose: 50 mls/hr Documented by: Lidocaine HCl (Xylocaine-Mpf 1%) Confirm Administered Dose 4 mls @ as directed .ROUTE .STK-MED ONE Stop: 01/10/21 12:54 Insulin Glargine (Lantus) 15 unit SUBCUT DAILY [facility] Last Admin: 01/07/21 08:01 Dose: Not Given Documented by: Insulin Glargine (Lantus) 7.5 unit SUBCUT ONETIME ONE Stop: 01/07/21 09:01 Last Admin: 01/07/21 08:16 Dose: 7.5 units Documented by: Insulin Glargine (Lantus) 15 unit SUBCUT DAILY [facility] Insulin Glargine (Lantus) 7.5 unit SUBCUT DAILY [facility] Last Admin: 01/08/21 09:06 Dose: 7.5 units Documented by: Insulin Glargine (Lantus) 10 unit SUBCUT BID [facility] Last Admin: 01/09/21 08:36 Dose: 10 units Documented by: Insulin Glargine (Lantus) 10 unit SUBCUT NOW [facility] Stop: 01/08/21 19:06 Last Admin: 01/08/21 19:28 Dose: 10 unit Documented by: Insulin Glargine (Lantus) 13 unit SUBCUT BID [facility] Last Admin: 01/10/21 21:03 Dose: 13 units Documented by: Insulin Glargine (Lantus) 5 unit SUBCUT NOW [facility] Stop: 01/09/21 21:12 Last Admin: 01/09/21 22:33 Dose: 5 units Documented by: Insulin Human Lispro (Humalog) 0 unit SUBCUT QIDACANDBED [facility]; Protocol Last Admin: 01/08/21 14:23 Dose: Not Given Documented by: Insulin Human Lispro (Humalog) 0 unit SUBCUT QIDACANDBED [facility]; Protocol Ketamine HCl (Ketalar) Confirm Administered Dose 0 mg .ROUTE .STK-MED ONE Stop: 01/06/21 10:47 Ketamine HCl (Ketalar) Confirm Administered Dose 500 mg .ROUTE .STK-MED ONE Stop: 01/10/21 12:54 Lidocaine HCl (Xylocaine 1%) 10 ml INJECT ONETIME ONE Stop: 01/03/21 18:58 Last Admin: 01/04/21 00:57 Dose: Not Given Documented by: Lidocaine/Epinephrine (Xylocaine-Mpf 2%-Epi 1:200,000) Confirm Administered Dose 20 ml .ROUTE .STK-MED ONE Stop: 01/06/21 10:13 Metoprolol Tartrate (Lopressor) 5 mg IVPUSH Q5M PRN PRN Reason: Hypertension Stop: 01/10/21 18:00 Last Admin: 01/10/21 16:21 Dose: 1 mg Documented by: Midazolam HCl (Versed 1 Mg/Ml) Confirm Administered Dose 0 mg .ROUTE .STK-MED ONE Stop: 01/06/21 10:46 Midazolam HCl (Versed 1 Mg/Ml) Confirm Administered Dose 2 mg .ROUTE .STK-MED ONE Stop: 01/10/21 12:54 Non-Formulary Medication (Insulin Degludec [Tresiba]) 15 unit SQ DAILY [facility] Ondansetron HCl (Zofran) 4 mg IVPUSH ONETIME ONE Stop: 01/03/21 18:48 Last Admin: 01/03/21 18:51 Dose: 4 mg Documented by: Ondansetron HCl (Zofran) Confirm Administered Dose 4 mg .ROUTE .STK-MED ONE Stop: 01/03/21 19:51 Last Admin: 01/03/21 20:11 Dose: Not Given Documented by: Ondansetron HCl (Zofran) 4 mg IVPUSH ONETIME ONE Stop: 01/03/21 20:07 Last Admin: 01/03/21 20:11 Dose: 4 mg Documented by: Potassium Chloride (Klor-Con M20) 40 meq PO DAILY [facility] Stop: 01/09/21 12:25 Last Admin: 01/09/21 13:23 Dose: Not Given Documented by: Potassium Chloride (Klor-Con M20) 40 meq PO ONETIME ONE Stop: 01/09/21 12:39 Last Admin: 01/09/21 13:10 Dose: 40 meq Documented by: Potassium Chloride (Klor-Con M20) 40 meq PO ONETIME ONE Stop: 01/12/21 09:01 Propofol (Diprivan 20 Ml) Confirm Administered Dose 200 mg .ROUTE .STK-MED ONE Stop: 01/10/21 12:54 Ropivacaine (Naropin 0.5%) Confirm Administered Dose 30 ml .ROUTE .STK-MED ONE Stop: 01/06/21 09:57 Ropivacaine (Naropin 0.5%) Confirm Administered Dose 30 ml .ROUTE .STK-MED ONE Stop: 01/10/21 12:35 Sodium Polystyrene Sulfonate (Kayexalate) 15 gm PO ONETIME ONE Stop: 01/04/21 08:50 Last Admin: 01/04/21 09:57 Dose: 15 gm Documented by: Spironolactone (Aldactone) 50 mg PO DAILY [facility] Last Admin: 01/04/21 08:10 Dose: 50 mg Documented by: Tamsulosin HCl (Flomax) 0.4 mg PO DAILY [facility] Last Admin: 01/04/21 17:44 Dose: Not Given Documented by: - Exam Wound/Incisions: Dressing Dry and Intact General: Alert, Cooperative, No Acute Distress Lungs: Normal Respiratory Effort Extremities: Other (Pt was able to sense light touch at BLE. Ana's negative.) Sepsis Event Note - Evaluation Sepsis Screening Result: No Definite Risk - Focused Exam Vital Signs: Vital Signs Temp Pulse Resp BP Pulse Ox Pulse Ox 01/12/21 08:58 98 01/12/21 08:34 59 L 92 L 01/12/21 06:10 93 L 01/12/21 05:32 98.1 F 65 18 124/51 L 93 L 01/11/21 22:00 97 - Problem List Review Problem List Initiated/Reviewed/Updated: Yes - My Orders Last 24 Hours: Active Orders 24 hr Category Date Time Status Up to Chair [RC] ASDIRECTED Care 01/11/21 10:38 Active CORONAVIRUS COVID-19 HAYDE [MOLEC] Stat Lab 01/12/21 08:55 Ordered Aspirin Med 01/11/21 09:00 Active 81 mg PO BID Clopidogrel [Plavix] Med 01/11/21 09:00 Active 75 mg PO DAILY Insulin Glarg,Human.Rec.Analog [LantUS] Med 01/11/21 09:00 Active 15 unit SUBCUT BID Ice Therapy [OM.PC] Routine Oth 01/11/21 19:47 Ordered Medication Orders Acetaminophen (Tylenol) 650 mg PO Q4H PRN PRN Reason: Pain/Fever Last Admin: 01/11/21 23:08 Dose: 650 mg Documented by: Admin: 01/11/21 12:23 Dose: 650 mg Documented by: Admin: 01/11/21 00:46 Dose: 650 mg Documented by: NICOLE Albuterol/Ipratropium (Duoneb 3.0-0.5 Mg/3 Ml) 3 ml NEB Q4H PRN PRN Reason: Shortness Of Breath/wheezing Aspirin (Aspirin) 81 mg PO BID [facility] Stop: 02/15/21 09:01 Last Admin: 01/11/21 20:08 Dose: 81 mg Documented by: Admin: 01/11/21 08:16 Dose: 81 mg Documented by: KEVEN Calcium Carbonate/Glycine (Tums) 500 mg PO Q4H PRN PRN Reason: Heartburn Clopidogrel Bisulfate (Plavix) 75 mg PO DAILY [facility] Last Admin: 01/11/21 08:16 Dose: 75 mg Documented by: KEVEN Cyclobenzaprine HCl (Flexeril) 10 mg PO TID PRN PRN Reason: muscle spasms Last Admin: 01/11/21 20:09 Dose: 10 mg Documented by: Admin: 01/11/21 00:47 Dose: 10 mg Documented by: Admin: 01/04/21 12:36 Dose: 10 mg Documented by: KEVEN Docusate Sodium (Colace) 100 mg PO BID [facility] Last Admin: 01/11/21 20:09 Dose: 100 mg Documented by: Admin: 01/11/21 08:16 Dose: 100 mg Documented by: Admin: 01/10/21 21:03 Dose: 100 mg Documented by: Admin: 01/10/21 08:39 Dose: 100 mg Documented by: Admin: 01/09/21 20:36 Dose: 100 mg Documented by: Admin: 01/09/21 08:43 Dose: 100 mg Documented by: Admin: 01/08/21 20:11 Dose: 100 mg Documented by: Admin: 01/08/21 09:05 Dose: 100 mg Documented by: Admin: 01/07/21 21:15 Dose: 100 mg Documented by: GIL Famotidine (Pepcid) 20 mg PO Q48H [facility] Last Admin: 01/10/21 08:39 Dose: 20 mg Documented by: Admin: 01/08/21 09:08 Dose: 20 mg Documented by: Admin: 01/06/21 08:23 Dose: Not Given Documented by: KEVEN Furosemide (Lasix) 40 mg PO DAILY [facility] Last Admin: 01/11/21 08:16 Dose: 40 mg Documented by: Admin: 01/10/21 08:40 Dose: 40 mg Documented by: BHARATI Gabapentin (Neurontin) 100 mg PO BID [facility] Last Admin: 01/11/21 20:08 Dose: 100 mg Documented by: Admin: 01/11/21 08:16 Dose: 100 mg Documented by: Admin: 01/10/21 21:03 Dose: 100 mg Documented by: Admin: 01/10/21 08:39 Dose: 100 mg Documented by: Admin: 01/09/21 20:36 Dose: 100 mg Documented by: Admin: 01/09/21 09:10 Dose: 100 mg Documented by: Admin: 01/08/21 20:11 Dose: 100 mg Documented by: GIL Hydralazine HCl (Apresoline) 10 mg IVPUSH Q4H PRN PRN Reason: Hypertension Hydromorphone HCl (Dilaudid) 0.5 mg IVPUSH Q4H PRN PRN Reason: Pain (severe 7-10) Last Admin: 01/11/21 02:51 Dose: 0.5 mg Documented by: Admin: 01/06/21 08:18 Dose: 0.5 mg Documented by: Admin: 01/05/21 09:54 Dose: 0.5 mg Documented by: Admin: 01/04/21 05:13 Dose: 0.5 mg Documented by: Admin: 01/04/21 01:09 Dose: 0.5 mg Documented by: GAYLE Promethazine HCl 12.5 mg/ (Sodium Chloride) 50.5 mls @ 100 mls/hr IV Q6H PRN PRN Reason: Nausea/Vomiting Piperacillin Sod/Tazobactam (Sod 4.5 gm/ Sodium Chloride) 100 mls @ 25 mls/hr IV Q12H [facility] Admin: 01/12/21 08:14 Dose: 25 mls/hr Documented by: Infusion: 01/12/21 00:08 Dose: 25 mls/hr Documented by: Admin: 01/11/21 20:08 Dose: 25 mls/hr Documented by: Infusion: 01/11/21 12:08 Dose: 25 mls/hr Documented by: Admin: 01/11/21 08:08 Dose: 25 mls/hr Documented by: Infusion: 01/11/21 01:02 Dose: 25 mls/hr Documented by: Admin: 01/10/21 21:02 Dose: 25 mls/hr Documented by: Infusion: 01/10/21 12:36 Dose: 25 mls/hr Documented by: Admin: 01/10/21 08:36 Dose: 25 mls/hr Documented by: Infusion: 01/10/21 00:30 Dose: 25 mls/hr Documented by: Admin: 01/09/21 20:30 Dose: 25 mls/hr Documented by: Infusion: 01/09/21 12:14 Dose: 25 mls/hr Documented by: Admin: 01/09/21 08:14 Dose: 25 mls/hr Documented by: Infusion: 01/09/21 00:11 Dose: 25 mls/hr Documented by: Admin: 01/08/21 20:11 Dose: 25 mls/hr Documented by: Infusion: 01/08/21 13:04 Dose: 25 mls/hr Documented by: Admin: 01/08/21 09:04 Dose: 25 mls/hr Documented by: Infusion: 01/08/21 01:15 Dose: 25 mls/hr Documented by: Admin: 01/07/21 21:15 Dose: 25 mls/hr Documented by: GIL Insulin Glargine (Lantus) 15 unit SUBCUT BID [facility] Last Admin: 01/12/21 08:13 Dose: 15 units Documented by: Admin: 01/11/21 21:09 Dose: 15 units Documented by: Admin: 01/11/21 08:21 Dose: 15 units Documented by: KEVEN Insulin Human Lispro (Humalog) 0 unit SUBCUT QIDACANDBED [facility]; Protocol Last Admin: 01/12/21 08:13 Dose: 2 units Documented by: Admin: 01/11/21 21:10 Dose: 10 units Documented by: Admin: 01/11/21 17:35 Dose: 6 units Documented by: Admin: 01/11/21 12:34 Dose: 10 units Documented by: Admin: 01/11/21 08:05 Dose: 8 units Documented by: Admin: 01/10/21 21:04 Dose: 10 units Documented by: Admin: 01/10/21 18:48 Dose: 8 units Documented by: Admin: 01/10/21 12:02 Dose: Not Given Documented by: Admin: 01/10/21 07:42 Dose: Not Given Documented by: Admin: 01/09/21 22:35 Dose: 10 units Documented by: Admin: 01/09/21 18:00 Dose: 8 units Documented by: Admin: 01/09/21 11:06 Dose: 10 units Documented by: Admin: 01/09/21 10:45 Dose: Not Given Documented by: Admin: 01/08/21 22:26 Dose: 10 units Documented by: Admin: 01/08/21 19:03 Dose: 10 units Documented by: Admin: 01/08/21 12:58 Dose: 10 units Documented by: ALFONSO Magnesium Hydroxide (Milk Of Magnesia) 30 ml PO DAILY PRN PRN Reason: Constipation Last Admin: 01/07/21 16:09 Dose: 30 ml Documented by: ALFONSO Metoprolol Succinate (Toprol Xl) 50 mg PO DAILY KANNAN Last Admin: 01/11/21 08:16 Dose: 50 mg Documented by: Admin: 01/10/21 10:57 Dose: 50 mg Documented by: Admin: 01/09/21 08:43 Dose: 50 mg Documented by: Admin: 01/08/21 09:05 Dose: 50 mg Documented by: Admin: 01/07/21 08:17 Dose: 50 mg Documented by: Admin: 01/06/21 08:23 Dose: 50 mg Documented by: Admin: 01/05/21 08:57 Dose: 50 mg Documented by: Admin: 01/04/21 08:11 Dose: 50 mg Documented by: KEVEN Oxycodone HCl (Oxycodone) 5 mg PO Q6H PRN PRN Reason: Pain (moderate 4-6) Last Admin: 01/11/21 23:09 Dose: 5 mg Documented by: Admin: 01/11/21 18:43 Dose: 5 mg Documented by: Admin: 01/11/21 12:26 Dose: 5 mg Documented by: Admin: 01/11/21 00:47 Dose: 5 mg Documented by: Admin: 01/10/21 21:07 Dose: 5 mg Documented by: Admin: 01/08/21 06:56 Dose: 5 mg Documented by: Admin: 01/07/21 08:18 Dose: 5 mg Documented by: Admin: 01/06/21 21:48 Dose: 5 mg Documented by: Admin: 01/06/21 01:36 Dose: 5 mg Documented by: Admin: 01/05/21 08:56 Dose: 5 mg Documented by: Admin: 01/04/21 20:48 Dose: 5 mg Documented by: Admin: 01/04/21 12:35 Dose: 5 mg Documented by: PROEAMA Polyethylene Glycol (Miralax) 17 gm PO ASDIRECTED PRN PRN Reason: Constipation - Assessment Assessment (Free Text/Narrative):: POD#2 - cephalomedullary nail placement for left hip fracture - Plan Plan (Free Text/Narrative):: 1. Pt will d/c to [place] today. 2. Continue with PT and OT. 3. WBAT. 4. 81mg ASA PO BID for VTE prophylaxis. The pt's case was discussed with Dr. Huertas.
[2021-01-12] MEDS: Furosemide 40 MG Tab PO SCH (09:55)
[2021-01-12] MEDS: Aspirin 81 MG Tab.Chew PO SCH (09:55)
[2021-01-12] MEDS: Clopidogrel 75 MG Tab PO SCH (09:55)
[2021-01-12] MEDS: Docusate Sodium 100 MG Cap PO SCH (09:55)
[2021-01-12] MEDS: Metoprolol Succinate 50 MG Tab.ER PO SCH (09:55)
[2021-01-12] MEDS: Gabapentin 100 MG Cap PO SCH (09:55)
[2021-01-12] MEDS: Famotidine 20 MG Tab PO SCH (09:55)
[2021-01-12 12:01] VITALS: BP 107/62
[2021-01-12 13:47] VITALS: PULSE 72
--- NOTE | 2021-01-16 17:12 | PCM.OPNOTE ---
- General Post-Op/Procedure Note Date of Surgery/Procedure: 01/10/21 Operative Procedure(s): left hip cephallomedullary nailing Pre Op Diagnosis: left hip intertrochanteric fracture Post-Op Diagnosis: Same Anesthesia Technique: Local, MAC, Spinal Primary Surgeon: Johnny Huertas Anesthesia Provider: Amandeep Ayala Director Of Content Marketing: April Martell EBL in mLs: 25 Complications: None Condition: Good
--- NOTE | 2021-01-16 18:06 | OR ---
DATE OF OPERATION: 01/10/2021 SURGEON: Johnny Huertas MD OPERATION PERFORMED: Left hip cephalomedullary nailing. PREOPERATIVE DIAGNOSIS: Left hip intertrochanteric fracture. POSTOPERATIVE DIAGNOSIS: Left hip intertrochanteric fracture. ANESTHESIA: Local MAC with spinal. ANESTHESIA PROVIDER: Nelida Gibbs. WIRELESS CONSULTANT: April Martell PA-C. ESTIMATED BLOOD LOSS: 25 mL. COMPLICATIONS: None. CONDITION: Stable. IMPLANT: [place] short gamma nail. DESCRIPTION OF PROCEDURE: The patient was identified in the preoperative holding area. Proper site was marked and identified by the surgeon. The patient was taken back to the operating theater where after adequate anesthesia, the patient was placed on the traction table. Right lower extremity was placed in the traction boot, but no traction was applied and was placed in a dependent position. The left lower extremity was placed in the traction boot and gross traction was applied and this was placed in an abducted position with the patella facing superiorly. Left hip was then sterilely prepped and draped in the usual sterile fashion. OR time-out was performed. The patient received 2 g of IV Ancef. C-arm fluoroscopy showed it to be anatomically reduced. At this time, a standard superior incision was made. A guide pin was placed in the center-center position in the greater trochanter and the opening reamer for a short gamma nail was utilized. The short gamma nail was then placed and impacted into proper position. A small stab incision was made laterally and the guide pin was placed up in through the head and the neck in a center-center position and was found to be adequate on both AP and lateral C-arm fluoroscopy views. The step reamer was found to be good for a 90 mm lag screw in the head. The lag screw was then placed and the set screw was placed superiorly. An 8th of a turn back off the set screw was done. At this time, attention was turned distally. The guide was placed for the static interlock screw. A small incision was made. The drill was then utilized and the distal interlock screw was placed. C-arm fluoroscopy showed the fracture to be anatomically reduced. All screws were in proper position. Adequate saline was irrigated through all wounds. 0 Vicryl was used for closure of the gluteal fascia, 2-0 Vicryl was used subcutaneously and Prineo and candida were used for the skin. The patient had a sterile soft dressing applied and was sent to the PACU in stable condition. MMODAL /[id number]
== END 2021-01-12 13:05 | DRG 480 ==
LOC: JD.ED 17:20 → JD.MS 23:29
PROVIDERS: ADMIT Family Medicine; ATTEND Family Medicine
PROC: 0QS734Z Reposition Left Upper Femur with Internal Fixation Device, Percutaneous Approach (ICD-10-PCS; principal; 2021-01-10)
DX: S72.002A Fracture of unspecified part of neck of left femur, initial encounter for closed fracture (principal); N17.2 Acute kidney failure with medullary necrosis; J96.00 Acute respiratory failure, unspecified whether with hypoxia or hypercapnia; J69.0 Pneumonitis due to inhalation of food and vomit; R13.10 Dysphagia, unspecified; I48.91 Unspecified atrial fibrillation; N18.4 Chronic kidney disease, stage 4 (severe); I13.0 Hypertensive heart and chronic kidney disease with heart failure and stage 1 through stage 4 chronic kidney disease, or unspecified chronic kidney disease; I50.9 Heart failure, unspecified; N18.9 Chronic kidney disease, unspecified; N30.00 Acute cystitis without hematuria; I50.22 Chronic systolic (congestive) heart failure; E87.0 Hyperosmolality and hypernatremia; D64.9 Anemia, unspecified; F03.90 Unspecified dementia, unspecified severity, without behavioral disturbance, psychotic disturbance, mood disturbance, and anxiety; S51.012A Laceration without foreign body of left elbow, initial encounter; Z79.02 Long term (current) use of antithrombotics/antiplatelets; Z20.822 Contact with and (suspected) exposure to COVID-19; D63.1 Anemia in chronic kidney disease; Z66 Do not resuscitate; I48.0 Paroxysmal atrial fibrillation; E11.22 Type 2 diabetes mellitus with diabetic chronic kidney disease; K59.09 Other constipation; R33.9 Retention of urine, unspecified; M54.9 Dorsalgia, unspecified; G89.18 Other acute postprocedural pain; F32.89 Other specified depressive episodes; E80.6 Other disorders of bilirubin metabolism; R74.01 Elevation of levels of liver transaminase levels; E78.5 Hyperlipidemia, unspecified; E87.70 Fluid overload, unspecified; E87.6 Hypokalemia; F01.50 Vascular dementia, unspecified severity, without behavioral disturbance, psychotic disturbance, mood disturbance, and anxiety; F32.9 Major depressive disorder, single episode, unspecified; G89.29 Other chronic pain; E83.41 Hypermagnesemia; I34.0 Nonrheumatic mitral (valve) insufficiency; Z86.73 Personal history of transient ischemic attack (TIA), and cerebral infarction without residual deficits; Z98.890 Other specified postprocedural states; H54.7 Unspecified visual loss; Z88.1 Allergy status to other antibiotic agents; Z79.4 Long term (current) use of insulin; Z79.899 Other long term (current) drug therapy; W19.XXXA Unspecified fall, initial encounter
CPT/HCPCS: 36415; 51702; 70450; 71045; 73080; 73502; 73700; 80053; 81001; 82962; 83735; 83880; 84484; 85025; 85610; 85730; 87086; 87088; 87181; 87184; 93005; 96374; 96375; 96376; 99285; J1170 ×2; J1940; J2405 ×2; U0002; 01230; 36600; 64447; 64450; 73552-26-LT; 73552-LT; 76000; 76000-26; 80048; 82803; 82947; 83036; 84145; 84443; 86850; 86900; 86901; 87641; 93010; 93306; 94760; 94761; 97110-GP; 97162-GP; 97165-GO; 97530-GO; 97530-GP; 97535-GO; 99222; 99233; 99239; A9270-GY; C1713; C1776; J1100; J1644; J1815-GY; J2250; J2543; J2704; J2795; J3010; J3480; J3490; J7030; J7120

== ENCOUNTER 2021-03-21 08:38 | Inpatient (IN) | payer MEDICARE, OTHER ==
--- NOTE | 2021-03-21 08:59 | EDM.PDOC ---
ED HPI GENERAL MEDICAL PROBLEM - General Chief Complaint: Gastrointestinal Problem Stated Complaint: [facility] Time Seen by Provider: 03/21/21 08:58 - History of Present Illness INITIAL COMMENTS - FREE TEXT/NARRATIVE: 89-year-old female brought in by EMS from the [facility] with chief complaint of coffee-ground emesis and black tarry stools per rectum. This apparently started around 7:00 this morning. According to the patient however she may have had black tarry stools yesterday but she is not certain of this. She denies any significant pain at this time. Patient currently is on Plavix a month and a half ago she had a hip replacement and this is why she is in a [facility] facility. - Related Data Allergies Allergy/AdvReac Type Severity Reaction Status Date / Time levofloxacin [From Levaquin] Allergy Itching Verified 03/21/21 08:55 Home Meds: Home Meds Clopidogrel [Plavix] 75 mg PO DAILY 10/20/15 [History] Gabapentin [Neurontin] 600 mg PO BID 10/20/15 [History] Insulin Aspart [Novolog Flexpen] 13 unit SQ TID 10/20/15 [History] Acetaminophen 500 mg PO BEDTIME 07/12/16 [History] Vitamin E 400 unit PO DAILY 07/12/16 [History] Furosemide [Lasix] 20 mg PO DAILY 04/29/19 [History] Metoprolol Succinate 50 mg PO DAILY 04/29/19 [History] polyethylene glycoL 3350 [MiraLAX] 17 gm PO ASDIRECTED PRN 04/29/19 [History] Albuterol/Ipratropium [DuoNeb 3.0-0.5 MG/3 ML] 3 ml NEB QIDRT #120 neb 05/06/19 [Rx] Spironolactone [Aldactone] 50 mg PO DAILY #30 tablet 05/06/19 [Rx] Insulin Aspart [NovoLOG] 1 dose SUBCUT TID 08/31/20 [History] Acetaminophen [Tylenol] 650 mg PO Q4H PRN #30 tablet 01/12/21 [Rx] Docusate Sodium [Colace] 100 mg PO BID #20 cap 01/12/21 [Rx] Aspirin 81 mg PO DAILY 03/21/21 [History] Calcium Carbonate [Tums] 200 mg PO Q4HR PRN 03/21/21 [History] Insulin Degludec [Tresiba] 20 unit SQ DAILY 03/21/21 [History] Phenyleph/Mineral Oil/Petrolat [Preparation H Ointment] 0.25 RECTAL ASDIRECTED PRN 03/21/21 [History] Past Medical History HEENT History: Reports: Impaired Vision Other HEENT History: dysphagia Cardiovascular History: Reports: Afib, Arrhythmia, Heart Failure, Hypertension Other Cardiovascular History: Afib, anemia Respiratory History: Reports: Pneumonia, Recurrent, Other (See Below) Other Respiratory History: hypoxemia requiring home O2 Gastrointestinal History: Reports: Chronic Constipation Other Gastrointestinal History: dysphagia Genitourinary History: Reports: Chronic Renal Insuffiency, Retention, Urinary 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: Musculoskeletal History: Reports: Back Pain, Chronic Other Musculoskeletal History: muscle weakness Neurological History: Reports: TIA, Other (See Below) Other Neuro History: cerebral infarct; neuralgia Psychiatric History: Reports: Dementia, Depression Other Psychiatric History: vascular dementia Endocrine/Metabolic History: Reports: Diabetes, Type II Hematologic History: Reports: Anemia Oncologic (Cancer) History: Reports: Other (See Below) Other Oncologic History: unknown skin cancer Dermatologic History: Reports: Other (See Below) Other Dermatologic History: previous supspected skin cancer - Infectious Disease History Infectious Disease History: Reports: Chicken Pox, Influenza, Measles, Mumps - Past Surgical History HEENT Surgical History: Reports: None Cardiovascular Surgical History: Reports: None GI Surgical History: Reports: Cholecystectomy Female Surgical History: Reports: None Oncologic Surgical History: Reports: None Social & Family History - Family History Family Medical History: No Pertinent Family History - Tobacco Use Tobacco Use Status *Q: Never Tobacco User - Caffeine Use Caffeine Use: Reports: Coffee - Recreational Drug Use Recreational Drug Use: No ED ROS GENERAL - Review of Systems Review Of Systems: See Below Constitutional: Reports: No Symptoms HEENT: Reports: No Symptoms Respiratory: Reports: No Symptoms Cardiovascular: Reports: No Symptoms Endocrine: Reports: No Symptoms GI/Abdominal: Reports: Black Stool, Melena (Coffee-ground emesis first noted th is morning). Denies: Abdominal Pain : Reports: No Symptoms Musculoskeletal: Reports: No Symptoms Neurological: Reports: No Symptoms ED EXAM, GI/ABD - Physical Exam Exam: See Below Exam Limited By: No Limitations General Appearance: Alert, No Apparent Distress Eyes: Bilateral: Normal Appearance Ears: Normal External Exam, Normal Canal, Hearing Grossly Normal, Normal TMs Nose: Normal Inspection, Normal Mucosa, No Blood Throat/Mouth: Normal Inspection, Normal Lips, Normal Gums, Normal Oropharynx, Normal Voice, No Airway Compromise Head: Atraumatic, Normocephalic Neck: Normal Inspection, Supple, Non-Tender, Full Range of Motion. No: Lymphadenopathy (L), Lymphadenopathy (R) Respiratory/Chest: No Respiratory Distress, Lungs Clear, Normal Breath Sounds Cardiovascular: Regular Rate, Rhythm, No Edema, No Murmur GI/Abdominal Exam: Normal Bowel Sounds, Soft, Non-Tender Rectal (Female) Exam: Heme + Stool, Hemorrhoids (Bright red blood over one of the hemorrhoids this was cleared prior to digital rectal exam) Back Exam: Normal Inspection. No: CVA Tenderness (L), CVA Tenderness (R) Extremities: Pedal Edema (ttrace). No: Normal Inspection, No Pedal Edema Neurological: Alert, Oriented, Normal Cognition Course - Vital Signs Last Recorded V/S: Last Vital Signs Temp 36.7 C 03/21/21 15:39 Pulse 90 03/21/21 15:39 Resp 22 H 03/21/21 18:00 BP 128/31 L 03/21/21 15:39 Pulse Ox 93 L 03/21/21 15:39 - Orders/Labs/Meds Orders: Medication Orders Acetaminophen (Acetaminophen 325 Mg Tab) 650 mg PO Q4H PRN PRN Reason: Pain (Mild 1-3)/fever Albuterol/Ipratropium (Albuterol/Ipratropium 3.0-0.5 Mg/3 Ml Neb Soln) 3 ml NEB QIDRT [facility] Last Admin: 03/21/21 15:11 Dose: 3 ml Documented by: ANNE Docusate Sodium (Docusate Sodium 100 Mg Cap) 100 mg PO BID [facility] Furosemide (Furosemide 40 Mg Tab) 20 mg PO DAILY [facility] Gabapentin (Gabapentin 300 Mg Cap) 600 mg PO BID [facility] Ceftriaxone Sodium 1 gm/ (Sodium Chloride) 100 mls @ 200 mls/hr IV Q24H [facility] Last Admin: 03/21/21 14:09 Dose: 200 mls/hr Documented by: MEGGAN Dextrose/Sodium Chloride (Dextrose 5%-Normal Saline) 1,000 mls @ 75 mls/hr IV ASDIRECTED [facility] Stop: 03/22/21 04:04 Last Admin: 03/21/21 16:08 Dose: 75 mls/hr Documented by: LEONIDES Insulin Human Lispro (Insulin Lispro 100 Unit/Ml) 0 unit SUBCUT QIDACANDBED [facility]; Protocol Last Admin: 03/21/21 18:07 Dose: 3 unit Documented by: LEONIDES Metoprolol Succinate (Metoprolol Succinate 50 Mg Tab.Er) 50 mg PO DAILY [facility] Ondansetron HCl (Ondansetron 4 Mg/2 Ml Sdv) 4 mg IV Q6H PRN PRN Reason: Nausea/Vomiting Pantoprazole Sodium (Pantoprazole 40 Mg Vial) 40 mg IV Q12HR [facility] Polyethylene Glycol (Polyethylene Glycol 3350 Powder 17 Gm Packet) 17 gm PO ASDIRECTED PRN PRN Reason: Constipation Labs: Laboratory Tests 03/21/21 03/21/21 03/21/21 Range/Units 08:49 09:08 09:08 WBC 14.03 H (3.98-10.04) K/mm3 RBC 3.19 L (3.98-5.22) M/mm3 Hgb 9.7 L (11.2-15.7) gm/dl Hct 31.4 L (34.1-44.9) % MCV 98.4 H D (79.4-94.8) fl MCH 30.4 (25.6-32.2) pg MCHC 30.9 L (32.2-35.5) g/dl RDW Std Deviation 50.5 H (36.4-46.3) fL Plt Count 246 (182-369) K/mm3 MPV 10.1 (9.4-12.3) fl Neut % (Auto) 85.4 H (34.0-71.1) % Lymph % (Auto) 10.4 L (19.3-51.7) % Hancock % (Auto) 3.3 L (4.7-12.5) % Eos % (Auto) 0.1 L (0.7-5.8) Baso % (Auto) 0.2 (0.1-1.2) % Neut # (Auto) 11.97 H (1.56-6.13) K/mm3 Lymph # (Auto) 1.46 (1.18-3.74) K/mm3 Hancock # (Auto) 0.47 H (0.24-0.36) K/mm3 Eos # (Auto) 0.02 L (0.04-0.36) K/mm3 Baso # (Auto) 0.03 (0.01-0.08) K/mm3 Manual Slide Review Normal smear PT 10.9 (9.7-12.0) SECONDS INR 1.02 APTT 21.0 L (21.7-31.4) SECONDS Sodium (136-145) mEq/L Potassium (3.5-5.1) mEq/L Chloride (98-107) mEq/L Carbon Dioxide (21-32) mEq/L Anion Gap (5-15) BUN (7-18) mg/dL Creatinine (0.55-1.02) mg/dL Est Cr Clr Drug Dosing mL/min Estimated GFR (MDRD) (>60) mL/min BUN/Creatinine Ratio (14-18) Glucose (83-115) mg/dL Calcium (8.5-10.1) mg/dL Magnesium (1.8-2.4) mg/dl Total Bilirubin (0.2-1.0) mg/dL AST (15-37) U/L ALT (14-59) U/L Alkaline Phosphatase (46-116) U/L Troponin I (0.00-0.056) ng/mL C-Reactive Protein (<1.0) mg/dL Total Protein (6.4-8.2) g/dl Albumin (3.4-5.0) g/dl Globulin gm/dL Albumin/Globulin Ratio (1-2) Urine Color (Yellow) Urine Appearance (Clear) Urine pH (5.0-8.0) Ur Specific Elon (1.005-1.030) Urine Protein (Negative) Urine Glucose (UA) (Negative) Urine Ketones (Negative) Urine Occult Blood (Negative) Urine Nitrite (Negative) Urine Bilirubin (Negative) Urine Urobilinogen (0.2-1.0) Ur Leukocyte Esterase (Negative) Urine RBC (0-5) /hpf Urine WBC (0-5) /hpf Ur Squamous Epith Cells (0-5) /hpf Amorphous Sediment (NOT SEEN) /hpf Urine Bacteria (FEW) /hpf Urine Mucus (FEW) /hpf Ur Random Creatinine (30.0-125.0) mg/dL Ur Random Sodium (40-220) mEq/L SARS-CoV-2 RNA (HAYDE) Negative (NEGATIVE) Blood Type Gel Antibody Screen 03/21/21 03/21/21 03/21/21 Range/Units 09:08 09:08 09:08 WBC (3.98-10.04) K/mm3 RBC (3.98-5.22) M/mm3 Hgb (11.2-15.7) gm/dl Hct (34.1-44.9) % MCV (79.4-94.8) fl MCH (25.6-32.2) pg MCHC (32.2-35.5) g/dl RDW Std Deviation (36.4-46.3) fL Plt Count (182-369) K/mm3 MPV (9.4-12.3) fl Neut % (Auto) (34.0-71.1) % Lymph % (Auto) (19.3-51.7) % Hancock % (Auto) (4.7-12.5) % Eos % (Auto) (0.7-5.8) Baso % (Auto) (0.1-1.2) % Neut # (Auto) (1.56-6.13) K/mm3 Lymph # (Auto) (1.18-3.74) K/mm3 Hancock # (Auto) (0.24-0.36) K/mm3 Eos # (Auto) (0.04-0.36) K/mm3 Baso # (Auto) (0.01-0.08) K/mm3 Manual Slide Review PT (9.7-12.0) SECONDS INR APTT (21.7-31.4) SECONDS Sodium 137 (136-145) mEq/L Potassium 5.6 H D (3.5-5.1) mEq/L Chloride 104 (98-107) mEq/L Carbon Dioxide 25 (21-32) mEq/L Anion Gap 13.6 (5-15) BUN 57 H (7-18) mg/dL Creatinine 1.7 H (0.55-1.02) mg/dL Est Cr Clr Drug Dosing 16.11 mL/min Estimated GFR (MDRD) 28 (>60) mL/min BUN/Creatinine Ratio 33.5 H (14-18) Glucose 306 H (83-115) mg/dL Calcium 8.9 (8.5-10.1) mg/dL Magnesium (1.8-2.4) mg/dl Total Bilirubin 0.6 (0.2-1.0) mg/dL AST 11 L (15-37) U/L ALT 20 (14-59) U/L Alkaline Phosphatase 91 (46-116) U/L Troponin I < 0.017 (0.00-0.056) ng/mL C-Reactive Protein (<1.0) mg/dL Total Protein 6.7 (6.4-8.2) g/dl Albumin 3.2 L (3.4-5.0) g/dl Globulin 3.5 gm/dL Albumin/Globulin Ratio 0.9 L (1-2) Urine Color (Yellow) Urine Appearance (Clear) Urine pH (5.0-8.0) Ur Specific Elon (1.005-1.030) Urine Protein (Negative) Urine Glucose (UA) (Negative) Urine Ketones (Negative) Urine Occult Blood (Negative) Urine Nitrite (Negative) Urine Bilirubin (Negative) Urine Urobilinogen (0.2-1.0) Ur Leukocyte Esterase (Negative) Urine RBC (0-5) /hpf Urine WBC (0-5) /hpf Ur Squamous Epith Cells (0-5) /hpf Amorphous Sediment (NOT SEEN) /hpf Urine Bacteria (FEW) /hpf Urine Mucus (FEW) /hpf Ur Random Creatinine (30.0-125.0) mg/dL Ur Random Sodium (40-220) mEq/L SARS-CoV-2 RNA (HAYDE) (NEGATIVE) Blood Type O NEGATIVE Gel Antibody Screen Negative 03/21/21 03/21/21 03/21/21 Range/Units 09:08 09:24 09:24 WBC (3.98-10.04) K/mm3 RBC (3.98-5.22) M/mm3 Hgb (11.2-15.7) gm/dl Hct (34.1-44.9) % MCV (79.4-94.8) fl MCH (25.6-32.2) pg MCHC (32.2-35.5) g/dl RDW Std Deviation (36.4-46.3) fL Plt Count (182-369) K/mm3 MPV (9.4-12.3) fl Neut % (Auto) (34.0-71.1) % Lymph % (Auto) (19.3-51.7) % Hancock % (Auto) (4.7-12.5) % Eos % (Auto) (0.7-5.8) Baso % (Auto) (0.1-1.2) % Neut # (Auto) (1.56-6.13) K/mm3 Lymph # (Auto) (1.18-3.74) K/mm3 Hancock # (Auto) (0.24-0.36) K/mm3 Eos # (Auto) (0.04-0.36) K/mm3 Baso # (Auto) (0.01-0.08) K/mm3 Manual Slide Review PT (9.7-12.0) SECONDS INR APTT (21.7-31.4) SECONDS Sodium (136-145) mEq/L Potassium (3.5-5.1) mEq/L Chloride (98-107) mEq/L Carbon Dioxide (21-32) mEq/L Anion Gap (5-15) BUN (7-18) mg/dL Creatinine (0.55-1.02) mg/dL Est Cr Clr Drug Dosing mL/min Estimated GFR (MDRD) (>60) mL/min BUN/Creatinine Ratio (14-18) Glucose (83-115) mg/dL Calcium (8.5-10.1) mg/dL Magnesium 2.2 (1.8-2.4) mg/dl Total Bilirubin (0.2-1.0) mg/dL AST (15-37) U/L ALT (14-59) U/L Alkaline Phosphatase (46-116) U/L Troponin I (0.00-0.056) ng/mL C-Reactive Protein < 0.2 (<1.0) mg/dL Total Protein (6.4-8.2) g/dl Albumin (3.4-5.0) g/dl Globulin gm/dL Albumin/Globulin Ratio (1-2) Urine Color Light yellow (Yellow) Urine Appearance Slt cloudy H (Clear) Urine pH 7.0 (5.0-8.0) Ur Specific Elon 1.020 (1.005-1.030) Urine Protein Negative (Negative) Urine Glucose (UA) 2+ H (Negative) Urine Ketones 1+ H (Negative) Urine Occult Blood 3+ H (Negative) Urine Nitrite Positive H (Negative) Urine Bilirubin Negative (Negative) Urine Urobilinogen 0.2 (0.2-1.0) Ur Leukocyte Esterase 1+ H (Negative) Urine RBC 10-20 H (0-5) /hpf Urine WBC 20-30 H (0-5) /hpf Ur Squamous Epith Cells 5-10 H (0-5) /hpf Amorphous Sediment Few H (NOT SEEN) /hpf Urine Bacteria Many H (FEW) /hpf Urine Mucus Not seen (FEW) /hpf Ur Random Creatinine 59.7 (30.0-125.0) mg/dL Ur Random Sodium 78 (40-220) mEq/L SARS-CoV-2 RNA (HAYDE) (NEGATIVE) Blood Type Gel Antibody Screen Meds: Medications Generic Name Dose Route Start Last Admin Trade Name Freq PRN Reason Stop Dose Admin Acetaminophen 650 mg 03/21/21 12:08 Acetaminophen 325 Mg Tab PO Q4H PRN Pain (Mild 1-3)/fever Albuterol/Ipratropium 3 ml 03/21/21 16:00 03/21/21 15:11 Albuterol/Ipratropium 3.0-0.5 Mg/3 Ml Neb Soln NEB 3 ml QIDRT KANNAN Administration Docusate Sodium 100 mg 03/21/21 21:00 Docusate Sodium 100 Mg Cap PO BID KANNAN Furosemide 20 mg 03/22/21 09:00 Furosemide 40 Mg Tab PO DAILY KANNAN Gabapentin 600 mg 03/21/21 21:00 Gabapentin 300 Mg Cap PO BID KANNAN Ceftriaxone Sodium 1 gm/ 100 mls @ 200 mls/hr 03/21/21 14:00 03/21/21 14:09 Sodium Chloride IV 200 mls/hr Q24H KANNAN Administration Dextrose/Sodium Chloride 1,000 mls @ 75 mls/hr 03/21/21 14:45 03/21/21 16:08 Dextrose 5%-Normal Saline IV 03/22/21 04:04 75 mls/hr ASDIRECTED KANNAN Administration Insulin Human Lispro 0 unit 03/21/21 17:00 03/21/21 18:07 Insulin Lispro 100 Unit/Ml SUBCUT 3 unit QIDACANDBED KANNAN Administration Protocol Metoprolol Succinate 50 mg 03/22/21 09:00 Metoprolol Succinate 50 Mg Tab.Er PO DAILY KANNAN Ondansetron HCl 4 mg 03/21/21 12:08 Ondansetron 4 Mg/2 Ml Sdv IV Q6H PRN Nausea/Vomiting Pantoprazole Sodium 40 mg 03/21/21 21:00 Pantoprazole 40 Mg Vial IV Q12HR [facility] Polyethylene Glycol 17 gm 03/21/21 12:06 Polyethylene Glycol 3350 Powder 17 Gm Packet PO ASDIRECTED PRN Constipation Discontinued Medications Generic Name Dose Route Start Last Admin Trade Name Freq PRN Reason Stop Dose Admin Albuterol 2.5 mg 03/21/21 12:41 03/21/21 15:06 Albuterol 0.083% 2.5 Mg/3 Ml Neb Soln NEB 03/21/21 12:42 Not Given ONETIME ONE Dextrose/Lactated Ringer's 1,000 mls @ 75 mls/hr 03/21/21 12:30 Dextrose 5%-Lactated Ringers IV 03/22/21 01:49 ASDIRECTED [facility] Insulin Human Regular 5 unit 03/21/21 13:00 03/21/21 14:09 Insulin Regular, Human 100 Units/Ml 3 Ml Vial SUBCUT 03/21/21 13:01 5 unit ONETIME ONE Administration Ondansetron HCl 4 mg 03/21/21 10:56 03/21/21 11:03 Ondansetron 4 Mg/2 Ml Sdv IVPUSH 03/21/21 10:57 4 mg ONETIME ONE Administration Pantoprazole Sodium 40 mg 03/21/21 10:56 03/21/21 11:03 Pantoprazole 40 Mg Vial IVPUSH 03/21/21 10:57 40 mg ONETIME ONE Administration - Re-Assessments/Exams Free Text/Narrative Re-Assessment/Exam: 03/21/21 21:01 The case was reviewed with Dr. Adams on-call surgeon who recommended hospitalist admission. He would be available if needed but really urged medical management. Case was reviewed with Dr. Rooney who assumed care Departure - Departure Time of Disposition: 11:13 Disposition: Admitted As Inpatient 67 Clinical Impression: Gastrointestinal hemorrhage Qualifiers: GI bleed type/associated pathology: melena Qualified Code(s): K92.1 - Melena - Discharge Information Sepsis Event Note (ED) - Evaluation Sepsis Screening Result: No Definite Risk
[2021-03-21] MEDS ORDERED: Ondansetron 4 MG/2 ML SDV IVPUSH ONE (10:56)
[2021-03-21] MEDS ORDERED: Pantoprazole 40 MG Vial IVPUSH ONE (10:56)
--- NOTE | 2021-03-21 11:46 | PCM.HP.2 ---
H&P History of Present Illness - General Date of Service: 03/21/21 Source of Information: Patient, Old Records, Provider, RN, RN Notes Reviewed History Limitations: Reports: No Limitations - History of Present Illness Initial Comments - Free Text/Narative: This is an 89-year-old female who presents to our ED on 03/21/2021 with concern over GI bleed. Patient resides at [facility] and reportedly had melena and coffee-ground emesis starting at around 7 AM today. Patient presented via [facility]. Patient does have a history of CVA, TIA, and A. fib and is on Plavix and a baby aspirin for this. No history of any prior GI bleeds. Patient has baseline hypoxemia requiring oxygen and is on 2 L in the ED. In the emergency room temp was 36.8 Celsius. Pulse 98. Respirations 16. Blood pressure 141/62. Pulse ox 98%. Twelve-lead EKG is obtained showing a sinus rhythm with Q waves in III and aVF. There is low voltage noted in the precordial leads. Compared with prior twelve-lead EKG from December of this year with no acute changes noted. Labs are obtained showing an elevated WBC at 14.03. Hemoglobin is 9.7. Platelet 246,000. Neutrophils are elevated 85.4%. INR is 1.02. aPTT is 21.0. Sodium is 137. Potassium is high at 5.6. Chloride 104. Carbon oxide 25. Anion gap 13.6. BUN is quite high at 57. Creatinine 1.7. GFR 28. Glucose is 306. Calcium 8.9. Total bilirubin 0.6. AST is 11, ALT 20, alkaline phosphatase 91. Troponin less than 0.017. Protein 6.7. Albumin is low at 3.2. SARS Covid 2 RNA is negative. Blood type is O- and antibody screen is negative. While in the ED she is noted to have an episode of emesis with approximately 10 mL of coffee-ground emesis with streaks of blood. She is given Protonix and Zofran via IV. She carries a history of A. fib, heart failure, hypertension, anemia, recurrent pneumonia, hypoxemia requiring O2, chronic constipation, dysphagia, chronic renal insufficiency, urinary retention, chronic back pain, TIA, cerebral infarct, neuralgia, vascular dementia, depression, type II DM. She is not a smoker. Her PCP is Dr. Kothari. She is subsequently admitted to the medical floor for management of her GI bleed. She is a DNR/DNI. Her daughter is present at bedside. - Related Data Allergies/Adverse Reactions: Allergies Allergy/AdvReac Type Severity Reaction Status Date / Time levofloxacin [From Levaquin] Allergy Itching Verified 03/21/21 08:55 Home Medications: Home Meds Clopidogrel [Plavix] 75 mg PO DAILY 10/20/15 [History] Gabapentin [Neurontin] 600 mg PO BID 10/20/15 [History] Insulin Aspart [Novolog Flexpen] 13 unit SQ TID 10/20/15 [History] Acetaminophen 500 mg PO BEDTIME 07/12/16 [History] Vitamin E 400 unit PO DAILY 07/12/16 [History] Furosemide [Lasix] 20 mg PO DAILY 04/29/19 [History] Metoprolol Succinate 50 mg PO DAILY 04/29/19 [History] polyethylene glycoL 3350 [MiraLAX] 17 gm PO ASDIRECTED PRN 04/29/19 [History] Albuterol/Ipratropium [DuoNeb 3.0-0.5 MG/3 ML] 3 ml NEB QIDRT #120 neb 05/06/19 [Rx] Spironolactone [Aldactone] 50 mg PO DAILY #30 tablet 05/06/19 [Rx] Insulin Aspart [NovoLOG] 1 dose SUBCUT TID 08/31/20 [History] Acetaminophen [Tylenol] 650 mg PO Q4H PRN #30 tablet 01/12/21 [Rx] Docusate Sodium [Colace] 100 mg PO BID #20 cap 01/12/21 [Rx] Aspirin 81 mg PO DAILY 03/21/21 [History] Past Medical History HEENT History: Reports: Impaired Vision Other HEENT History: dysphagia Cardiovascular History: Reports: Afib, Arrhythmia, Heart Failure, Hypertension Other Cardiovascular History: Afib, anemia Respiratory History: Reports: Pneumonia, Recurrent, Other (See Below) Other Respiratory History: hypoxemia requiring home O2 Gastrointestinal History: Reports: Chronic Constipation Other Gastrointestinal History: dysphagia Genitourinary History: Reports: Chronic Renal Insuffiency, Retention, 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: Musculoskeletal History: Reports: Back Pain, Chronic Other Musculoskeletal History: muscle weakness Neurological History: Reports: TIA, Other (See Below) Other Neuro History: cerebral infarct; neuralgia Psychiatric History: Reports: Dementia, Depression Other Psychiatric History: vascular dementia Endocrine/Metabolic History: Reports: Diabetes, Type II Hematologic History: Reports: Anemia Oncologic (Cancer) History: Reports: Other (See Below) Other Oncologic History: unknown skin cancer Dermatologic History: Reports: Other (See Below) Other Dermatologic History: previous supspected skin cancer - Infectious Disease History Infectious Disease History: Reports: Chicken Pox, Influenza, Measles, Mumps - Past Surgical History HEENT Surgical History: Reports: None Cardiovascular Surgical History: Reports: None GI Surgical History: Reports: Cholecystectomy Female Surgical History: Reports: None Oncologic Surgical History: Reports: None Social & Family History - Family History Family Medical History: No Pertinent Family History - Tobacco Use Tobacco Use Status *Q: Never Tobacco User - Caffeine Use Caffeine Use: Reports: Coffee - Recreational Drug Use Recreational Drug Use: No H&P Review of Systems - Review of Systems: Review Of Systems: See Below General: Reports: No Symptoms, Malaise, Weakness, Fatigue. Denies: Fever, Chills HEENT: Reports: No Symptoms. Denies: Headaches, Sore Throat Pulmonary: Reports: No Symptoms. Denies: Shortness of Breath, Wheezing, Pleuritic Chest Pain, Cough, Sputum Cardiovascular: Reports: No Symptoms. Denies: Chest Pain, Palpitations, Dyspnea on Exertion, Edema, Blood Pressure Problem Gastrointestinal: Reports: Hematemesis, Melena, Nausea, Vomiting. Denies: Abdominal Pain, Constipation, Diarrhea Genitourinary: Reports: No Symptoms. Denies: Pain Musculoskeletal: Reports: No Symptoms Skin: Reports: No Symptoms. Denies: Cyanosis Psychiatric: Reports: No Symptoms. Denies: Confusion Neurological: Reports: No Symptoms, Weakness. Denies: Confusion, Dizziness, Headache, Numbness, Pre-Existing Deficit, Tingling, Difficulty Walking, Gait Disturbance Hematologic/Lymphatic: Reports: Anemia Immunologic: Reports: No Symptoms Exam - Exam Exam: See Below - Vital Signs Vital Signs: Last Vital Signs Temp 98.2 F 03/21/21 08:38 Pulse 98 03/21/21 08:38 Resp 16 03/21/21 08:38 BP 141/62 H 03/21/21 08:38 Pulse Ox 98 03/21/21 08:38 Weight: 158 lb 11.2 oz - Exam Quality Assessment: Supplemental Oxygen (2L ), DVT Prophylaxis. No: Urinary Catheter General: Alert, Oriented, Cooperative. No: Mild Distress HEENT: Conjunctiva Clear, EACs Clear, Mucosa Moist & [place], Posterior Pharynx Clear Neck: Supple, Trachea Midline Lungs: Clear to Auscultation, Normal Respiratory Effort Cardiovascular: Regular Rate, Regular Rhythm GI/Abdominal Exam: Normal Bowel Sounds, Soft, Non-Tender, No Distention (Female) Exam: Deferred Rectal (Female) Exam: Deferred Extremities: Normal Inspection, Normal Range of Motion, Non-Tender, No Pedal Edema, Normal Capillary Refill Peripheral Pulses: 1+: Dorsalis Pedis (L), Dorsalis Pedis (R), 2+: Radial (L), Radial (R) Skin: Warm, Dry, Intact Neurological: Cranial Nerves Intact (Grossly ) Neuro Extensive - Mental Status: Alert, Oriented x3, Normal Mood/Affect - Patient Data Lab Results Last 24 hrs: Laboratory Results - last 24 hr 03/21/21 03/21/21 03/21/21 Range/Units 08:49 09:08 09:08 WBC 14.03 H (3.98-10.04) K/mm3 RBC 3.19 L (3.98-5.22) M/mm3 Hgb 9.7 L (11.2-15.7) gm/dl Hct 31.4 L (34.1-44.9) % MCV 98.4 H D (79.4-94.8) fl MCH 30.4 (25.6-32.2) pg MCHC 30.9 L (32.2-35.5) g/dl RDW Std Deviation 50.5 H (36.4-46.3) fL Plt Count 246 (182-369) K/mm3 MPV 10.1 (9.4-12.3) fl Neut % (Auto) 85.4 H (34.0-71.1) % Lymph % (Auto) 10.4 L (19.3-51.7) % [place] % (Auto) 3.3 L (4.7-12.5) % Eos % (Auto) 0.1 L (0.7-5.8) Baso % (Auto) 0.2 (0.1-1.2) % Neut # (Auto) 11.97 H (1.56-6.13) K/mm3 Lymph # (Auto) 1.46 (1.18-3.74) K/mm3 [place] # (Auto) 0.47 H (0.24-0.36) K/mm3 Eos # (Auto) 0.02 L (0.04-0.36) K/mm3 Baso # (Auto) 0.03 (0.01-0.08) K/mm3 Manual Slide Review Normal smear PT 10.9 (9.7-12.0) SECONDS INR 1.02 APTT 21.0 L (21.7-31.4) SECONDS Sodium (136-145) mEq/L Potassium (3.5-5.1) mEq/L Chloride (98-107) mEq/L Carbon Dioxide (21-32) mEq/L Anion Gap (5-15) BUN (7-18) mg/dL Creatinine (0.55-1.02) mg/dL Est Cr Clr Drug Dosing mL/min Estimated GFR (MDRD) (>60) mL/min BUN/Creatinine Ratio (14-18) Glucose (83-115) mg/dL Calcium (8.5-10.1) mg/dL Total Bilirubin (0.2-1.0) mg/dL AST (15-37) U/L ALT (14-59) U/L Alkaline Phosphatase (46-116) U/L Troponin I (0.00-0.056) ng/mL Total Protein (6.4-8.2) g/dl Albumin (3.4-5.0) g/dl Globulin gm/dL Albumin/Globulin Ratio (1-2) SARS-CoV-2 RNA (HAYDE) Negative (NEGATIVE) Blood Type Gel Antibody Screen 03/21/21 03/21/21 03/21/21 Range/Units 09:08 09:08 09:08 WBC (3.98-10.04) K/mm3 RBC (3.98-5.22) M/mm3 Hgb (11.2-15.7) gm/dl Hct (34.1-44.9) % MCV (79.4-94.8) fl MCH (25.6-32.2) pg MCHC (32.2-35.5) g/dl RDW Std Deviation (36.4-46.3) fL Plt Count (182-369) K/mm3 MPV (9.4-12.3) fl Neut % (Auto) (34.0-71.1) % Lymph % (Auto) (19.3-51.7) % [place] % (Auto) (4.7-12.5) % Eos % (Auto) (0.7-5.8) Baso % (Auto) (0.1-1.2) % Neut # (Auto) (1.56-6.13) K/mm3 Lymph # (Auto) (1.18-3.74) K/mm3 [place] # (Auto) (0.24-0.36) K/mm3 Eos # (Auto) (0.04-0.36) K/mm3 Baso # (Auto) (0.01-0.08) K/mm3 Manual Slide Review PT (9.7-12.0) SECONDS INR APTT (21.7-31.4) SECONDS Sodium 137 (136-145) mEq/L Potassium 5.6 H D (3.5-5.1) mEq/L Chloride 104 (98-107) mEq/L Carbon Dioxide 25 (21-32) mEq/L Anion Gap 13.6 (5-15) BUN 57 H (7-18) mg/dL Creatinine 1.7 H (0.55-1.02) mg/dL Est Cr Clr Drug Dosing 16.11 mL/min Estimated GFR (MDRD) 28 (>60) mL/min BUN/Creatinine Ratio 33.5 H (14-18) Glucose 306 H (83-115) mg/dL Calcium 8.9 (8.5-10.1) mg/dL Total Bilirubin 0.6 (0.2-1.0) mg/dL AST 11 L (15-37) U/L ALT 20 (14-59) U/L Alkaline Phosphatase 91 (46-116) U/L Troponin I < 0.017 (0.00-0.056) ng/mL Total Protein 6.7 (6.4-8.2) g/dl Albumin 3.2 L (3.4-5.0) g/dl Globulin 3.5 gm/dL Albumin/Globulin Ratio 0.9 L (1-2) SARS-CoV-2 RNA (HAYDE) (NEGATIVE) Blood Type O NEGATIVE Gel Antibody Screen Negative Result Diagrams: 03/21/21 14:05 03/21/21 09:08 Sepsis Event Note - Evaluation Sepsis Screening Result: No Definite Risk - Focused Exam Vital Signs: Vital Signs Temp Pulse Resp BP Pulse Ox 03/21/21 08:38 98.2 F 98 16 141/62 H 98 - Problem List (1) GI bleed SNOMED Code(s): 24424869 ICD Code: K92.2 - GASTROINTESTINAL HEMORRHAGE, UNSPECIFIED Status: Acute Priority: High Current Visit: Yes Qualifiers: GI bleed type/associated pathology: melena Qualified Code(s): K92.1 - Melena (2) CHF (congestive heart failure), NYHA class II SNOMED Code(s): 399150383, 202905560 ICD Code: I50.9 - HEART FAILURE, UNSPECIFIED Status: Chronic Priority: Medium Current Visit: No Qualifiers: Congestive heart failure type: combined Congestive heart failure chronicity: acute on chronic Qualified Code(s): I50.43 - Acute on chronic combined systolic (congestive) and diastolic (congestive) heart failure (3) Leukocytosis SNOMED Code(s): 129520846, 080071712 ICD Code: D72.829 - ELEVATED WHITE BLOOD CELL COUNT, UNSPECIFIED Status: Acute Priority: High Current Visit: Yes Qualifiers: Leukocytosis type: unspecified Qualified Code(s): D72.829 - Elevated white blood cell count, unspecified (4) Afib SNOMED Code(s): 70302021 ICD Code: I48.91 - UNSPECIFIED ATRIAL FIBRILLATION Status: Chronic Priority: Medium Current Visit: No Qualifiers: Atrial fibrillation type: paroxysmal Qualified Code(s): I48.0 - Paroxysmal atrial fibrillation (5) Anemia SNOMED Code(s): 775136702 ICD Code: D64.9 - ANEMIA, UNSPECIFIED Status: Acute Priority: Medium Current Visit: Yes Qualifiers: Anemia type: due to chronic 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) Qualified Code(s): N18.4 - Chronic kidney disease, stage 4 (severe); D63.1 - Anemia in chronic kidney disease (6) Chronic back pain SNOMED Code(s): 737989428 ICD Code: M54.9 - DORSALGIA, UNSPECIFIED; G89.29 - OTHER CHRONIC PAIN Status: Chronic Priority: Low Current Visit: No Qualifiers: Back pain location: back pain in unspecified location Back pain laterality: unspecified Qualified Code(s): M54.9 - Dorsalgia, unspecified; G89.29 - Other chronic pain (7) Chronic constipation SNOMED Code(s): 741888942 ICD Code: K59.09 - OTHER CONSTIPATION Status: Chronic Priority: Low Current Visit: No (8) DM2 (diabetes mellitus, type 2) SNOMED Code(s): 70991266 ICD Code: E11.9 - TYPE 2 DIABETES MELLITUS WITHOUT COMPLICATIONS Status: Chronic Priority: Medium Current Visit: Yes Qualifiers: 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: unspecified prison insulin use status Diabetes mellitus complication status: with other specified complicat ion Qualified Code(s): E11.69 - Type 2 diabetes mellitus with other specified complication (9) Depression SNOMED Code(s): 36476375 ICD Code: F32.9 - MAJOR DEPRESSIVE DISORDER, SINGLE EPISODE, UNSPECIFIED Status: Chronic Priority: Low Current Visit: No Qualifiers: Depression Type: other depression Qualified Code(s): F32.89 - Other specified depressive episodes (10) HTN (hypertension) SNOMED Code(s): 66913071 ICD Code: I10 - ESSENTIAL (PRIMARY) HYPERTENSION Status: Chronic Priority: Medium Current Visit: No Qualifiers: Hypertension type: unspecified Qualified Code(s): I10 - Essential (primary) hypertension (11) History of TIA (transient ischemic attack) SNOMED Code(s): 017836237 ICD Code: Z86.73 - PRSNL HX OF TIA (TIA), AND CEREB INFRC W/O RESID DEFICITS Status: Chronic Priority: Low Current Visit: No (12) halfway resident SNOMED Code(s): 660382839 ICD Code: Z59.3 - PROBLEMS RELATED TO LIVING IN RESIDENTIAL INSTITUTION Status: Chronic Priority: Low Current Visit: No (13) Generalized weakness SNOMED Code(s): 50743469 ICD Code: R53.1 - WEAKNESS Status: Acute Priority: High Current Visit: Yes (14) Hyperkalemia SNOMED Code(s): 15764494 ICD Code: E87.5 - HYPERKALEMIA Status: Acute Priority: High Current Visit: Yes (15) CKD (chronic kidney disease) stage 4, GFR 15-29 ml/min SNOMED Code(s): 430103709 ICD Code: N18.4 - CHRONIC KIDNEY DISEASE, STAGE 4 (SEVERE) Status: Chronic Priority: Medium Current Visit: Yes (16) Dysphagia SNOMED Code(s): 13552449, 838526817 ICD Code: R13.10 - DYSPHAGIA, UNSPECIFIED Status: Chronic Priority: Low Current Visit: No Qualifiers: Dysphagia type: unspecified Qualified Code(s): R13.10 - Dysphagia, unspecified (17) Recurrent pneumonia SNOMED Code(s): 920747932 ICD Code: J18.9 - PNEUMONIA, UNSPECIFIED ORGANISM Status: Chronic Priority: Low Current Visit: No (18) Chronic respiratory failure with hypoxia, on home oxygen therapy SNOMED Code(s): 741893965 ICD Code: J96.11 - CHRONIC RESPIRATORY FAILURE WITH HYPOXIA; Z99.81 - DEPENDENCE ON SUPPLEMENTAL OXYGEN Status: Chronic Priority: Medium Current Visit: Yes (19) History of CVA (cerebrovascular accident) SNOMED Code(s): 449336476 ICD Code: Z86.73 - PRSNL HX OF TIA (TIA), AND CEREB INFRC W/O RESID DEFICITS Status: Chronic Priority: Medium Current Visit: No (20) Vascular dementia SNOMED Code(s): 526096278 ICD Code: F01.50 - VASCULAR DEMENTIA WITHOUT BEHAVIORAL DISTURBANCE Status: Chronic Priority: Medium Current Visit: No Qualifiers: Dementia behavioral disturbance: without behavioral disturbance Qualified Code(s): F01.50 - Vascular dementia without behavioral disturbance (21) Urinary retention SNOMED Code(s): 117161298 ICD Code: R33.9 - RETENTION OF URINE, UNSPECIFIED Status: Chronic Priority: Low Current Visit: No (22) UTI (urinary tract infection) SNOMED Code(s): 42886356 ICD Code: N39.0 - URINARY TRACT INFECTION, SITE NOT SPECIFIED Status: Acute Priority: High Current Visit: Yes Qualifiers: Urinary tract infection type: acute cystitis Hematuria presence: with hematuria Qualified Code(s): N30.01 - Acute cystitis with hematuria (23) Hyperglycemia due to type 2 diabetes mellitus SNOMED Code(s): 557908787826423, 149532004133930 ICD Code: E11.65 - TYPE 2 DIABETES MELLITUS WITH HYPERGLYCEMIA Status: Acute Priority: High Current Visit: Yes Qualifiers: 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 * Noted to have melena and coffee-ground emesis around 7 AM this morning. * Patient is on Plavix and aspirin for prior CVA, TIA, and A. fib. * Also carries history of: heart failure, HTN, anemia, recurrent pneumonia, hypoxemia requiring home O2, chronic constipation, dysphagia, CKD stage IV, urinary retention, chronic back pain, neuralgia, vascular dementia, depression, type II DM. * Twelve-lead EKG shows sinus rhythm with Q waves in III and aVF. Low voltage in precordial leads. No acute change from 12/2020 * Labs obtained in ED: * WBC 14.03 * Hemoglobin 9.7, hematocrit 31.4 * Platelet 246,000 * Neutrophils elevated at 85.4% * INR 1.02 * APTT 21.0 * Sodium 137 * Potassium 5.6 * Carbon dioxide 25 * Anion gap 13.6 * BUN 57, creatinine 1.7, GFR 28 * Glucose 306 * Calcium 8.9 * Total bilirubin 0.6 * AST 11, ALT 20, alkaline phosphatase 91 * Troponin less than 0.017 * Albumin 3.2 * SARS Covid 2 RNA negative * Blood type O negative; gel antibody screen negative * Given 4 mg IV push of Zofran and 40 mg IV push Protonix in ED * Noted to have episode of coffee-ground emesis with blood streaks, approximately 10 mL in ED. * Admitted to medical surgical floor for management of GI bleed and hyperkalemia. * Labs on floor: * CRP less than 0.2 * Magnesium 2.2 * UA: Slightly cloudy with 2+ glucose, 1+ ketones, 3+ occult blood, positive nitrate, 1+ leukocyte esterase, 10-20 RBC, 20-30 WBC, 5-10 squamous epithelial cells, few amorphous sediment, many bacteria * Blood cultures ordered * Started on 1 g Rocephin. PLAN: GI bleed Anemia Generalized weakness halfway resident * IVP Protonix BID * General surgery consultation - Dr. Adams contacted in ED * Trend Hgb * Transfuse if Hgb <7 * Telemetry * Hold ASA and Plavix for now * PT/OT consultation * CM/SW consultation * D5LR for 1 bag * Regular diet per Dr. Adams (consistent carbohydrate) UTI (urinary tract infection) Urinary retention Leukocytosis * Urine culture * Start Rocephin 1gm daily * Blood cultures X2 * Procalcitonin * Daily labs including CRP * Monitor for fever Hyperkalemia CKD (chronic kidney disease) stage 4, GFR 15-29 ml/min * Albuterol neb now * Given 5 units Type R insulin now * No need for D50 as glucose is already >300 * No need for calcium as 12-lead EKG shows no changes from 12/2020 * Telemetry * IV fluids as ordered * Hold spironolactone * Urine sodium/creatine CHF (congestive heart failure), NYHA class II Afib HTN (hypertension) * No acute concerns * Hold ASA and Plavix as above * Telemetry * No acute concerns * Continue home HTN meds Chronic back pain * Heating pad PRN * Pain medications PRN * No acute concerns Chronic constipation * Continue home meds * Monitor BMs * No acute concerns DM2 (diabetes mellitus, type 2) Hyperglycemia due to type 2 diabetes mellitus * Blood glucose checks QID AC and Bedtime * Low dose SS inulin * A1C 7.0 on 01/04/2021 * Consistent carb diet * 5 units type R insulin now due to hyperkalemia as above Chronic respiratory failure with hypoxia, on home oxygen therapy Recurrent pneumonia Dysphagia * No acute concerns * O2 with goal saturations >92% * RT/RN to adjust as needed * Home scheduled Duonebs * Monitor swallowing - Per daughter patient was on thickened liquids awhile ago but has been regular/thin most recently. History of TIA (transient ischemic attack) History of CVA (cerebrovascular accident) Vascular dementia * No acute concerns * Let me sleep protocol Depression * No acute concerns Code Status: DNR/DNI (confirmed with patient and daughter on 03/21/2021) PCP: Dr. Winchester VTE prophylaxis: SCDs and MCKAY hose. Pharmacological prophylaxis contraindicated due to GI bleed. Social: Patient resides at [facility] Disposition: Patient admitted to medical surgical floor for management of her acute GI bleed and hyperkalemia. Found to have UTI as well. Likely length of stay 3 to 4 days. - Mortality Measure Prognosis:: Poor (Overall poor prognosis given advanced age, multiple comorbid conditions.)
[2021-03-21] MEDS ORDERED: Polyethylene Glycol 3350 Powder 17 GM Packet PO PRN (12:06)
[2021-03-21] MEDS ORDERED: Ondansetron 4 MG/2 ML SDV IV PRN (12:08)
[2021-03-21] MEDS ORDERED: Acetaminophen 325 MG Tab PO PRN (12:08)
[2021-03-21] MEDS ORDERED: Dextrose 5%-Lactated Ringers 1,000 ML IV SCH (12:30)
[2021-03-21] MEDS ORDERED: Albuterol 0.083% 2.5 MG/3 ML Neb Soln NEB ONE (12:41)
[2021-03-21] MEDS ORDERED: Insulin Regular, Human 100 Units/ML 3 ML Vial SUBCUT ONE (13:00)
--- NOTE | 2021-03-21 13:59 | PCM.CONS ---
H&P History of Present Illness - General Date of Service: 03/21/21 Admit Problem/Dx: Admission Diagnosis/Problem Admission Diagnosis/Problem GI bleed not requiring more than 4 units of blood in 24 hours, ICU, or surgery Source of Information: Patient, Family, Provider History Limitations: Reports: No Limitations - History of Present Illness Initial Comments - Free Text/Narative: Mrs. Webb is an 89 yo woman who presented to the ER today with melena and coffee ground emesis which started today. She has a history of CVA and takes aspirin and plavix. She has no prior history of GI bleed or peptic ulcer disease. Daughter reports history of atrial fibrillation, but patient is not on anticoagulation and is in normal sinus rhythm on exam. ALso reported is history of hiatal hernia, and on review the patient does have issues with dysphagia. On arrival in the ER, she is hemodynamically normal with Hgb of 9.7g/dL which is close to her baseline based on prior lab work. She is feeling better after getting to her room in the hospital. DNR/DNI status confirmed. - Related Data Allergies/Adverse Reactions: Allergies Allergy/AdvReac Type Severity Reaction Status Date / Time levofloxacin [From Levaquin] Allergy Itching Verified 03/21/21 08:55 Home Medications: Home Meds Clopidogrel [Plavix] 75 mg PO DAILY 10/20/15 [History] Gabapentin [Neurontin] 600 mg PO BID 10/20/15 [History] Insulin Aspart [Novolog Flexpen] 13 unit SQ TID 10/20/15 [History] Acetaminophen 500 mg PO BEDTIME 07/12/16 [History] Vitamin E 400 unit PO DAILY 07/12/16 [History] Furosemide [Lasix] 20 mg PO DAILY 04/29/19 [History] Metoprolol Succinate 50 mg PO DAILY 04/29/19 [History] polyethylene glycoL 3350 [MiraLAX] 17 gm PO ASDIRECTED PRN 04/29/19 [History] Albuterol/Ipratropium [DuoNeb 3.0-0.5 MG/3 ML] 3 ml NEB QIDRT #120 neb 05/06/19 [Rx] Spironolactone [Aldactone] 50 mg PO DAILY #30 tablet 05/06/19 [Rx] Insulin Aspart [NovoLOG] 1 dose SUBCUT TID 08/31/20 [History] Acetaminophen [Tylenol] 650 mg PO Q4H PRN #30 tablet 01/12/21 [Rx] Docusate Sodium [Colace] 100 mg PO BID #20 cap 01/12/21 [Rx] Aspirin 81 mg PO DAILY 03/21/21 [History] Past Medical History HEENT History: Reports: Impaired Vision Other HEENT History: dysphagia Cardiovascular History: Reports: Afib, Arrhythmia, Heart Failure, Hypertension Other Cardiovascular History: Afib, anemia Respiratory History: Reports: Pneumonia, Recurrent, Other (See Below) Other Respiratory History: hypoxemia requiring home O2 Gastrointestinal History: Reports: Chronic Constipation Other Gastrointestinal History: dysphagia Genitourinary History: Reports: Chronic Renal Insuffiency, Retention, Urinary BODY SPECIALIST History: Reports: Musculoskeletal History: Reports: Back Pain, Chronic Other Musculoskeletal History: muscle weakness Neurological History: Reports: TIA, Other (See Below) Other Neuro History: cerebral infarct; neuralgia Psychiatric History: Reports: Dementia, Depression Other Psychiatric History: vascular dementia Endocrine/Metabolic History: Reports: Diabetes, Type II Hematologic History: Reports: Anemia Oncologic (Cancer) History: Reports: Other (See Below) Other Oncologic History: unknown skin cancer Dermatologic History: Reports: Other (See Below) Other Dermatologic History: previous supspected skin cancer - Infectious Disease History Infectious Disease History: Reports: Chicken Pox, Influenza, Measles, Mumps - Past Surgical History HEENT Surgical History: Reports: None Cardiovascular Surgical History: Reports: None GI Surgical History: Reports: Cholecystectomy Female Surgical History: Reports: None Oncologic Surgical History: Reports: None Social & Family History - Family History Family Medical History: No Pertinent Family History - Tobacco Use Tobacco Use Status *Q: Never Tobacco User - Caffeine Use Caffeine Use: Reports: Coffee - Recreational Drug Use Recreational Drug Use: No H&P Review of Systems - Review of Systems: Review Of Systems: See Below General: Reports: No Symptoms HEENT: Reports: No Symptoms Pulmonary: Reports: No Symptoms Cardiovascular: Reports: No Symptoms Gastrointestinal: Reports: Black Stool, Nausea, Vomiting Genitourinary: Reports: No Symptoms Musculoskeletal: Reports: No Symptoms Skin: Reports: Bruising Psychiatric: Reports: No Symptoms Neurological: Reports: No Symptoms Hematologic/Lymphatic: Reports: Easy Bleeding Immunologic: Reports: No Symptoms Exam - Exam Exam: See Below - Vital Signs Vital Signs: Last Vital Signs Temp 36.8 C 03/21/21 08:38 Pulse 80 04/26/21 12:06 Resp 16 03/21/21 12:06 BP 144/66 H 03/21/21 12:06 Pulse Ox 95 03/21/21 12:06 Weight: 71.985 kg - Exam Quality Assessment: Supplemental Oxygen General: Alert, Oriented, Cooperative HEENT: Conjunctiva Clear Neck: Trachea Midline Lungs: Normal Respiratory Effort Cardiovascular: Regular Rate, Regular Rhythm GI/Abdominal Exam: Soft, Non-Tender Extremities: Other (LE compression garments. ecchymosis at dorsum of right hand) Skin: Warm, Dry Neuro Extensive - Mental Status: Alert, Normal Mood/Affect Psychiatric: Normal Mood - Patient Data Lab Results Last 24 hrs: Laboratory Results - last 24 hr 03/21/21 03/21/21 03/21/21 Range/Units 08:49 09:08 09:08 WBC 14.03 H (3.98-10.04) K/mm3 RBC 3.19 L (3.98-5.22) M/mm3 Hgb 9.7 L (11.2-15.7) gm/dl Hct 31.4 L (34.1-44.9) % MCV 98.4 H D (79.4-94.8) fl MCH 30.4 (25.6-32.2) pg MCHC 30.9 L (32.2-35.5) g/dl RDW Std Deviation 50.5 H (36.4-46.3) fL Plt Count 246 (182-369) K/mm3 MPV 10.1 (9.4-12.3) fl Neut % (Auto) 85.4 H (34.0-71.1) % Lymph % (Auto) 10.4 L (19.3-51.7) % [place] % (Auto) 3.3 L (4.7-12.5) % Eos % (Auto) 0.1 L (0.7-5.8) Baso % (Auto) 0.2 (0.1-1.2) % Neut # (Auto) 11.97 H (1.56-6.13) K/mm3 Lymph # (Auto) 1.46 (1.18-3.74) K/mm3 [place] # (Auto) 0.47 H (0.24-0.36) K/mm3 Eos # (Auto) 0.02 L (0.04-0.36) K/mm3 Baso # (Auto) 0.03 (0.01-0.08) K/mm3 Manual Slide Review Normal smear PT 10.9 (9.7-12.0) SECONDS INR 1.02 APTT 21.0 L (21.7-31.4) SECONDS Sodium (136-145) mEq/L Potassium (3.5-5.1) mEq/L Chloride (98-107) mEq/L Carbon Dioxide (21-32) mEq/L Anion Gap (5-15) BUN (7-18) mg/dL Creatinine (0.55-1.02) mg/dL Est Cr Clr Drug Dosing mL/min Estimated GFR (MDRD) (>60) mL/min BUN/Creatinine Ratio (14-18) Glucose (83-115) mg/dL Calcium (8.5-10.1) mg/dL Magnesium (1.8-2.4) mg/dl Total Bilirubin (0.2-1.0) mg/dL AST (15-37) U/L ALT (14-59) U/L Alkaline Phosphatase (46-116) U/L Troponin I (0.00-0.056) ng/mL C-Reactive Protein (<1.0) mg/dL Total Protein (6.4-8.2) g/dl Albumin (3.4-5.0) g/dl Globulin gm/dL Albumin/Globulin Ratio (1-2) Urine Color (Yellow) Urine Appearance (Clear) Urine pH (5.0-8.0) Ur Specific [place] (1.005-1.030) Urine Protein (Negative) Urine Glucose (UA) (Negative) Urine Ketones (Negative) Urine Occult Blood (Negative) Urine Nitrite (Negative) Urine Bilirubin (Negative) Urine Urobilinogen (0.2-1.0) Ur Leukocyte Esterase (Negative) Urine RBC (0-5) /hpf Urine WBC (0-5) /hpf Ur Squamous Epith Cells (0-5) /hpf Amorphous Sediment (NOT SEEN) /hpf Urine Bacteria (FEW) /hpf Urine Mucus (FEW) /hpf SARS-CoV-2 RNA (HAYDE) Negative (NEGATIVE) Blood Type Gel Antibody Screen 03/21/21 03/21/21 03/21/21 Range/Units 09:08 09:08 09:08 WBC (3.98-10.04) K/mm3 RBC (3.98-5.22) M/mm3 Hgb (11.2-15.7) gm/dl Hct (34.1-44.9) % MCV (79.4-94.8) fl MCH (25.6-32.2) pg MCHC (32.2-35.5) g/dl RDW Std Deviation (36.4-46.3) fL Plt Count (182-369) K/mm3 MPV (9.4-12.3) fl Neut % (Auto) (34.0-71.1) % Lymph % (Auto) (19.3-51.7) % [place] % (Auto) (4.7-12.5) % Eos % (Auto) (0.7-5.8) Baso % (Auto) (0.1-1.2) % Neut # (Auto) (1.56-6.13) K/mm3 Lymph # (Auto) (1.18-3.74) K/mm3 [place] # (Auto) (0.24-0.36) K/mm3 Eos # (Auto) (0.04-0.36) K/mm3 Baso # (Auto) (0.01-0.08) K/mm3 Manual Slide Review PT (9.7-12.0) SECONDS INR APTT (21.7-31.4) SECONDS Sodium 137 (136-145) mEq/L Potassium 5.6 H D (3.5-5.1) mEq/L Chloride 104 (98-107) mEq/L Carbon Dioxide 25 (21-32) mEq/L Anion Gap 13.6 (5-15) BUN 57 H (7-18) mg/dL Creatinine 1.7 H (0.55-1.02) mg/dL Est Cr Clr Drug Dosing 16.11 mL/min Estimated GFR (MDRD) 28 (>60) mL/min BUN/Creatinine Ratio 33.5 H (14-18) Glucose 306 H (83-115) mg/dL Calcium 8.9 (8.5-10.1) mg/dL Magnesium (1.8-2.4) mg/dl Total Bilirubin 0.6 (0.2-1.0) mg/dL AST 11 L (15-37) U/L ALT 20 (14-59) U/L Alkaline Phosphatase 91 (46-116) U/L Troponin I < 0.017 (0.00-0.056) ng/mL C-Reactive Protein (<1.0) mg/dL Total Protein 6.7 (6.4-8.2) g/dl Albumin 3.2 L (3.4-5.0) g/dl Globulin 3.5 gm/dL Albumin/Globulin Ratio 0.9 L (1-2) Urine Color (Yellow) Urine Appearance (Clear) Urine pH (5.0-8.0) Ur Specific [place] (1.005-1.030) Urine Protein (Negative) Urine Glucose (UA) (Negative) Urine Ketones (Negative) Urine Occult Blood (Negative) Urine Nitrite (Negative) Urine Bilirubin (Negative) Urine Urobilinogen (0.2-1.0) Ur Leukocyte Esterase (Negative) Urine RBC (0-5) /hpf Urine WBC (0-5) /hpf Ur Squamous Epith Cells (0-5) /hpf Amorphous Sediment (NOT SEEN) /hpf Urine Bacteria (FEW) /hpf Urine Mucus (FEW) /hpf SARS-CoV-2 RNA (HAYDE) (NEGATIVE) Blood Type O NEGATIVE Gel Antibody Screen Negative 03/21/21 03/21/21 Range/Units 09:08 09:24 WBC (3.98-10.04) K/mm3 RBC (3.98-5.22) M/mm3 Hgb (11.2-15.7) gm/dl Hct (34.1-44.9) % MCV (79.4-94.8) fl MCH (25.6-32.2) pg MCHC (32.2-35.5) g/dl RDW Std Deviation (36.4-46.3) fL Plt Count (182-369) K/mm3 MPV (9.4-12.3) fl Neut % (Auto) (34.0-71.1) % Lymph % (Auto) (19.3-51.7) % [place] % (Auto) (4.7-12.5) % Eos % (Auto) (0.7-5.8) Baso % (Auto) (0.1-1.2) % Neut # (Auto) (1.56-6.13) K/mm3 Lymph # (Auto) (1.18-3.74) K/mm3 [place] # (Auto) (0.24-0.36) K/mm3 Eos # (Auto) (0.04-0.36) K/mm3 Baso # (Auto) (0.01-0.08) K/mm3 Manual Slide Review PT (9.7-12.0) SECONDS INR APTT (21.7-31.4) SECONDS Sodium (136-145) mEq/L Potassium (3.5-5.1) mEq/L Chloride (98-107) mEq/L Carbon Dioxide (21-32) mEq/L Anion Gap (5-15) BUN (7-18) mg/dL Creatinine (0.55-1.02) mg/dL Est Cr Clr Drug Dosing mL/min Estimated GFR (MDRD) (>60) mL/min BUN/Creatinine Ratio (14-18) Glucose (83-115) mg/dL Calcium (8.5-10.1) mg/dL Magnesium 2.2 (1.8-2.4) mg/dl Total Bilirubin (0.2-1.0) mg/dL AST (15-37) U/L ALT (14-59) U/L Alkaline Phosphatase (46-116) U/L Troponin I (0.00-0.056) ng/mL C-Reactive Protein < 0.2 (<1.0) mg/dL Total Protein (6.4-8.2) g/dl Albumin (3.4-5.0) g/dl Globulin gm/dL Albumin/Globulin Ratio (1-2) Urine Color Light yellow (Yellow) Urine Appearance Slt cloudy H (Clear) Urine pH 7.0 (5.0-8.0) Ur Specific [place] 1.020 (1.005-1.030) Urine Protein Negative (Negative) Urine Glucose (UA) 2+ H (Negative) Urine Ketones 1+ H (Negative) Urine Occult Blood 3+ H (Negative) Urine Nitrite Positive H (Negative) Urine Bilirubin Negative (Negative) Urine Urobilinogen 0.2 (0.2-1.0) Ur Leukocyte Esterase 1+ H (Negative) Urine RBC 10-20 H (0-5) /hpf Urine WBC 20-30 H (0-5) /hpf Ur Squamous Epith Cells 5-10 H (0-5) /hpf Amorphous Sediment Few H (NOT SEEN) /hpf Urine Bacteria Many H (FEW) /hpf Urine Mucus Not seen (FEW) /hpf SARS-CoV-2 RNA (HAYDE) (NEGATIVE) Blood Type Gel Antibody Screen Result Diagrams: 03/21/21 09:08 03/21/21 09:08 Sepsis Event Note - Evaluation Sepsis Screening Result: No Definite Risk - Focused Exam Vital Signs: Vital Signs Temp Pulse Resp BP Pulse Ox 03/21/21 12:06 80 16 144/66 H 95 03/21/21 08:38 36.8 C 98 16 141/62 H 98 *Q Meaningful Use (ADM) - VTE *Q VTE Pharmacological Contraindications *Q: Active Hemorrhage Consult PN Assessment/Plan Procedures: Procedures AGENT NOS ASSAY W/OPTIC (04/29/19) AIRWAY INHALATION TREATMENT (04/29/19) APPLY LONG ARM SPLINT (07/12/16) ASSAY GLUCOSE BLOOD QUANT (01/03/21) ASSAY OF BETA-2 PROTEIN (04/29/19) ASSAY OF FERRITIN (08/31/20) ASSAY OF FREE THYROXINE (10/05/18) ASSAY OF IRON (04/29/19) ASSAY OF LACTIC ACID (08/31/20) ASSAY OF MAGNESIUM (01/03/21) ASSAY OF NATRIURETIC PEPTIDE (01/03/21) ASSAY OF PHOSPHORUS (04/29/19) ASSAY OF TRANSFERRIN (04/29/19) ASSAY OF TROPONIN QUANT (01/03/21) ASSAY OF VANCOMYCIN (04/29/19) ASSAY THYROID STIM HORMONE (01/03/21) AUTOMATED RETICULOCYTE COUNT (04/29/19) BL SMEAR W/DIFF WBC COUNT (04/29/19) BLOOD CULTURE FOR BACTERIA (08/31/20) BLOOD GASES ANY COMBINATION (01/03/21) BLOOD TYPING SEROLOGIC ABO (01/03/21) BLOOD TYPING SEROLOGIC RH(D) (01/03/21) C DIFF AMPLIFIED PROBE (04/29/19) C-REACTIVE PROTEIN (08/31/20) CHEST WALL MANIPULATION (04/29/19) CHEST WALL MANIPULATION (04/29/19) CHEST WALL MANIPULATION (12/03/18) CHEST WALL MANIPULATION (12/03/18) CHEST WALL MANIPULATION (10/20/15) CHEST WALL MANIPULATION (10/20/15) CHEST X-RAY 1 VIEW FRONTAL (03/05/16) CHEST X-RAY 2VW FRONTAL&LATL (10/20/15) CHYLMD PNEUM DNA AMP PROBE (12/03/18) COMPLETE CBC AUTOMATED (04/29/19) COMPLETE CBC W/AUTO DIFF WBC (01/03/21) COMPREHEN METABOLIC PANEL (01/03/21) CREATINE MB FRACTION (12/03/18) CT ANGIOGRAPHY CHEST (12/03/18) CT HEAD/BRAIN W/O DYE (01/03/21) CT LOWER EXTREMITY W/O DYE (01/03/21) CT THORAX DX C- (10/20/15) CULTURE SCREEN ONLY (12/03/18) DETECT AGENT NOS DNA AMP (12/03/18) ELECTROCARDIOGRAM TRACING (01/03/21) EMERGENCY DEPT VISIT (01/03/21) EVALUATE PT USE OF INHALER (10/20/15) FIBRIN DEGRADATION QUANT (08/31/20) FLUOROSCOPY <1 HR PHYS/QHP (01/03/21) GAIT TRAINING THERAPY (12/03/18) GLUCOSE BLOOD TEST (01/03/21) GLYCOSYLATED HEMOGLOBIN TEST (01/03/21) HYDRATE IV INFUSION ADD-ON (12/03/18) INFLUENZA ASSAY W/OPTIC (12/03/18) INSERT TEMP BLADDER CATH (01/03/21) LACTATE (LD) (LDH) ENZYME (08/31/20) M.PNEUMON DNA AMP PROBE (12/03/18) MEASURE BLOOD OXYGEN LEVEL (01/03/21) MEASURE BLOOD OXYGEN LEVEL (01/03/21) MEASURE BLOOD OXYGEN LEVEL (12/03/18) MEASURE BLOOD OXYGEN LEVEL (12/03/18) MEASURE BLOOD OXYGEN LEVEL (10/05/18) MEASURE BLOOD OXYGEN LEVEL (10/05/18) MEASURE BLOOD OXYGEN LEVEL (10/20/15) MEASURE BLOOD OXYGEN LEVEL (10/20/15) METABOLIC PANEL TOTAL CA (01/03/21) MICROBE SUSCEPTIBLE DIFFUSE (01/03/21) MICROBE SUSCEPTIBLE DISK (01/03/21) MR-STAPH DNA AMP PROBE (01/03/21) MYCOPLASMA ANTIBODY (04/29/19) OCCULT BLD FECES 1-3 TESTS (04/29/19) OT EVAL LOW COMPLEX 30 MIN (01/03/21) OT EVALUATION (11/25/15) PROCALCITONIN (PCT) (01/03/21) PROTHROMBIN TIME (01/03/21) PT EVAL LOW COMPLEX 20 MIN (10/05/18) PT EVAL MOD COMPLEX 30 MIN (01/03/21) PT EVALUATION (10/20/15) RBC ANTIBODY SCREEN (01/03/21) RBC SED RATE AUTOMATED (10/20/15) RESP VIRUS 6-11 TARGETS (12/03/18) ROUTINE VENIPUNCTURE (01/03/21) RPR S/N/AX/GEN/TRNK2.6-7.5CM (07/12/16) SELF CARE MNGMENT TRAINING (01/03/21) STREP A AG IA (12/03/18) THER/PROPH/DIAG INJ IV PUSH (01/03/21) THER/PROPH/DIAG IV INF INIT (04/29/19) THERAPEUTIC ACTIVITIES (01/03/21) THERAPEUTIC EXERCISES (01/03/21) THROMBOPLASTIN TIME PARTIAL (01/03/21) TTE W/DOPPLER COMPLETE (01/03/21) TX/PRO/DX INJ NEW DRUG ADDON (01/03/21) TX/PRO/DX INJ SAME DRUG PROPERTY INVESTOR (01/03/21) ULTRASOUND THERAPY (06/04/14) URINALYSIS AUTO W/SCOPE (01/03/21) URINE BACTERIA CULTURE (01/03/21) URINE CULTURE/COLONY COUNT (01/03/21) VANOMYCIN DNA AMP PROBE (10/20/15) VENT MGMT INPAT INIT DAY (10/20/15) VITAMIN D 25 HYDROXY (10/05/18) WITHDRAWAL OF ARTERIAL BLOOD (01/03/21) X-RAY EXAM CHEST 1 VIEW (01/03/21) X-RAY EXAM CHEST 2 VIEWS (04/29/19) X-RAY EXAM HIP UNI 2-3 VIEWS (01/03/21) X-RAY EXAM L-S SPINE 2/3 VWS (03/05/16) X-RAY EXAM OF ELBOW (01/03/21) X-RAY EXAM OF FEMUR 2/> (01/03/21) X-RAY EXAM OF FOREARM (04/29/19) Problem List Initiated/Reviewed/Updated: Yes Plan: GI bleed, likely gastric source, in patient with reported history of hiatal hernia who takes aspirin and plavix given history of CVA. She is elderly and fra il, but appears to be in no distress with normal vitals and Hgb 9.7 g/dL, close to baseline. Recommendations include IV protonix 40 mg bid while hospitalized. Regular diet. Hold aspirin and plavix for now. Trend H/H per primary team. Usually bleeding from gastritis or ulcer will stop with these measures alone. Monitor for resolution of GI bleed. Transfuse for Hgb <7 g/dL or symptomatic anemia. Will hold off on EGD for now; plan may change as clinical picture dictates.
[2021-03-21] MEDS: cefTRIAXone 1 GM in Sodium Chloride 0.9% 100 ML IV SCH (14:09)
[2021-03-21] MEDS ORDERED: Dextrose 5%-0.9% NaCl 1,000 ML IV SCH (14:45)
[2021-03-21] MEDS: Albuterol/Ipratropium 3.0-0.5 MG/3 ML Neb Soln NEB SCH ×2 (15:11→21:06)
[2021-03-21] MEDS: Insulin Lispro 100 UNIT/ML 10 ML Vial SUBCUT SCH (18:07)
[2021-03-21] MEDS: Gabapentin 300 MG Cap PO SCH (22:39)
[2021-03-21] MEDS: Docusate Sodium 100 MG Cap PO SCH (22:40)
[2021-03-21] MEDS: Pantoprazole 40 MG Vial IV SCH (22:40)
[2021-03-22] MEDS: Insulin Lispro 100 UNIT/ML 10 ML Vial SUBCUT SCH ×4 (00:49→17:12)
[2021-03-22] MEDS: Pantoprazole 40 MG Vial IV SCH ×4 (00:49→20:30)
[2021-03-22] MEDS: Docusate Sodium 100 MG Cap PO SCH ×3 (00:50→08:27)
[2021-03-22] MEDS: Albuterol/Ipratropium 3.0-0.5 MG/3 ML Neb Soln NEB SCH ×4 (04:59→20:51)
--- NOTE | 2021-03-22 07:21 | PCM.PN ---
- General Info Date of Service: 03/22/21 Admission Dx/Problem (Free Text): GI Bleed Functional Status: Reports: Pain Controlled, Tolerating Diet, Ambulating (minimal - baseline ), Urinating. Denies: New Symptoms - Review of Systems General: Reports: Weakness, Fatigue, Malaise. Denies: Fever, Chills HEENT: Reports: No Symptoms. Denies: Headaches, Sore Throat Pulmonary: Reports: No Symptoms. Denies: Shortness of Breath, Pleuritic Chest Pain, Cough, Sputum, Wheezing Cardiovascular: Reports: No Symptoms. Denies: Chest Pain, Palpitations, Dyspnea on Exertion, Lightheadedness Gastrointestinal: Reports: Melena. Denies: Abdominal Pain, Constipation, Diarrhea, Nausea, Vomiting Genitourinary: Reports: No Symptoms. Denies: Pain Musculoskeletal: Reports: No Symptoms Skin: Reports: No Symptoms. Denies: Cyanosis Neurological: Reports: Pre-Existing Deficit, Difficulty Walking, Weakness, Gait Disturbance. Denies: Confusion Psychiatric: Reports: No Symptoms - Patient Data Vitals - Most Recent: Last Vital Signs Temp 98.1 F 03/21/21 15:39 Pulse 85 03/21/21 19:40 Resp 14 03/22/21 01:00 BP 119/54 L 03/21/21 19:40 Pulse Ox 98 03/22/21 04:55 Weight - Most Recent: 143 lb 8.335 oz I&O - Last 24 Hours: Intake & Output 03/21/21 03/22/21 03/22/21 22:59 06:59 14:59 Intake Total 0 300 Balance 0 300 Lab Results Last 24 Hours: Laboratory Results - last 24 hr 03/21/21 03/21/21 03/21/21 Range/Units 08:49 09:08 09:08 WBC 14.03 H (3.98-10.04) K/mm3 RBC 3.19 L (3.98-5.22) M/mm3 Hgb 9.7 L (11.2-15.7) gm/dl Hct 31.4 L (34.1-44.9) % MCV 98.4 H D (79.4-94.8) fl MCH 30.4 (25.6-32.2) pg MCHC 30.9 L (32.2-35.5) g/dl RDW Std Deviation 50.5 H (36.4-46.3) fL Plt Count 246 (182-369) K/mm3 MPV 10.1 (9.4-12.3) fl Neut % (Auto) 85.4 H (34.0-71.1) % Lymph % (Auto) 10.4 L (19.3-51.7) % [place] % (Auto) 3.3 L (4.7-12.5) % Eos % (Auto) 0.1 L (0.7-5.8) Baso % (Auto) 0.2 (0.1-1.2) % Neut # (Auto) 11.97 H (1.56-6.13) K/mm3 Lymph # (Auto) 1.46 (1.18-3.74) K/mm3 [place] # (Auto) 0.47 H (0.24-0.36) K/mm3 Eos # (Auto) 0.02 L (0.04-0.36) K/mm3 Baso # (Auto) 0.03 (0.01-0.08) K/mm3 Manual Slide Review Normal smear PT 10.9 (9.7-12.0) SECONDS INR 1.02 APTT 21.0 L (21.7-31.4) SECONDS Sodium (136-145) mEq/L Potassium (3.5-5.1) mEq/L Chloride (98-107) mEq/L Carbon Dioxide (21-32) mEq/L Anion Gap (5-15) BUN (7-18) mg/dL Creatinine (0.55-1.02) mg/dL Est Cr Clr Drug Dosing mL/min Estimated GFR (MDRD) (>60) mL/min BUN/Creatinine Ratio (14-18) Glucose (83-115) mg/dL POC Glucose (70-99) mg/dL Lactic Acid (0.4-2.0) mmol/L Calcium (8.5-10.1) mg/dL Magnesium (1.8-2.4) mg/dl Iron (50-170) ug/dL TIBC (100-400) ug/dL % Saturation (20-55) % Transferrin (202-364) mg/dL Total Bilirubin (0.2-1.0) mg/dL AST (15-37) U/L ALT (14-59) U/L Alkaline Phosphatase (46-116) U/L Troponin I (0.00-0.056) ng/mL C-Reactive Protein (<1.0) mg/dL Total Protein (6.4-8.2) g/dl Albumin (3.4-5.0) g/dl Globulin gm/dL Albumin/Globulin Ratio (1-2) Urine Color (Yellow) Urine Appearance (Clear) Urine pH (5.0-8.0) Ur Specific [place] (1.005-1.030) Urine Protein (Negative) Urine Glucose (UA) (Negative) Urine Ketones (Negative) Urine Occult Blood (Negative) Urine Nitrite (Negative) Urine Bilirubin (Negative) Urine Urobilinogen (0.2-1.0) Ur Leukocyte Esterase (Negative) Urine RBC (0-5) /hpf Urine WBC (0-5) /hpf Ur Squamous Epith Cells (0-5) /hpf Amorphous Sediment (NOT SEEN) /hpf Urine Bacteria (FEW) /hpf Urine Mucus (FEW) /hpf Ur Random Creatinine (30.0-125.0) mg/dL Ur Random Sodium (40-220) mEq/L SARS-CoV-2 RNA (HAYDE) Negative (NEGATIVE) MRSA (PCR) Blood Type Gel Antibody Screen 03/21/21 03/21/21 03/21/21 Range/Units 09:08 09:08 09:08 WBC (3.98-10.04) K/mm3 RBC (3.98-5.22) M/mm3 Hgb (11.2-15.7) gm/dl Hct (34.1-44.9) % MCV (79.4-94.8) fl MCH (25.6-32.2) pg MCHC (32.2-35.5) g/dl RDW Std Deviation (36.4-46.3) fL Plt Count (182-369) K/mm3 MPV (9.4-12.3) fl Neut % (Auto) (34.0-71.1) % Lymph % (Auto) (19.3-51.7) % [place] % (Auto) (4.7-12.5) % Eos % (Auto) (0.7-5.8) Baso % (Auto) (0.1-1.2) % Neut # (Auto) (1.56-6.13) K/mm3 Lymph # (Auto) (1.18-3.74) K/mm3 [place] # (Auto) (0.24-0.36) K/mm3 Eos # (Auto) (0.04-0.36) K/mm3 Baso # (Auto) (0.01-0.08) K/mm3 Manual Slide Review PT (9.7-12.0) SECONDS INR APTT (21.7-31.4) SECONDS Sodium 137 (136-145) mEq/L Potassium 5.6 H D (3.5-5.1) mEq/L Chloride 104 (98-107) mEq/L Carbon Dioxide 25 (21-32) mEq/L Anion Gap 13.6 (5-15) BUN 57 H (7-18) mg/dL Creatinine 1.7 H (0.55-1.02) mg/dL Est Cr Clr Drug Dosing 16.11 mL/min Estimated GFR (MDRD) 28 (>60) mL/min BUN/Creatinine Ratio 33.5 H (14-18) Glucose 306 H (83-115) mg/dL POC Glucose (70-99) mg/dL Lactic Acid (0.4-2.0) mmol/L Calcium 8.9 (8.5-10.1) mg/dL Magnesium (1.8-2.4) mg/dl Iron (50-170) ug/dL TIBC (100-400) ug/dL % Saturation (20-55) % Transferrin (202-364) mg/dL Total Bilirubin 0.6 (0.2-1.0) mg/dL AST 11 L (15-37) U/L ALT 20 (14-59) U/L Alkaline Phosphatase 91 (46-116) U/L Troponin I < 0.017 (0.00-0.056) ng/mL C-Reactive Protein (<1.0) mg/dL Total Protein 6.7 (6.4-8.2) g/dl Albumin 3.2 L (3.4-5.0) g/dl Globulin 3.5 gm/dL Albumin/Globulin Ratio 0.9 L (1-2) Urine Color (Yellow) Urine Appearance (Clear) Urine pH (5.0-8.0) Ur Specific [place] (1.005-1.030) Urine Protein (Negative) Urine Glucose (UA) (Negative) Urine Ketones (Negative) Urine Occult Blood (Negative) Urine Nitrite (Negative) Urine Bilirubin (Negative) Urine Urobilinogen (0.2-1.0) Ur Leukocyte Esterase (Negative) Urine RBC (0-5) /hpf Urine WBC (0-5) /hpf Ur Squamous Epith Cells (0-5) /hpf Amorphous Sediment (NOT SEEN) /hpf Urine Bacteria (FEW) /hpf Urine Mucus (FEW) /hpf Ur Random Creatinine (30.0-125.0) mg/dL Ur Random Sodium (40-220) mEq/L SARS-CoV-2 RNA (HAYDE) (NEGATIVE) MRSA (PCR) Blood Type O NEGATIVE Gel Antibody Screen Negative 03/21/21 03/21/21 03/21/21 Range/Units 09:08 09:24 09:24 WBC (3.98-10.04) K/mm3 RBC (3.98-5.22) M/mm3 Hgb (11.2-15.7) gm/dl Hct (34.1-44.9) % MCV (79.4-94.8) fl MCH (25.6-32.2) pg MCHC (32.2-35.5) g/dl RDW Std Deviation (36.4-46.3) fL Plt Count (182-369) K/mm3 MPV (9.4-12.3) fl Neut % (Auto) (34.0-71.1) % Lymph % (Auto) (19.3-51.7) % [place] % (Auto) (4.7-12.5) % Eos % (Auto) (0.7-5.8) Baso % (Auto) (0.1-1.2) % Neut # (Auto) (1.56-6.13) K/mm3 Lymph # (Auto) (1.18-3.74) K/mm3 [place] # (Auto) (0.24-0.36) K/mm3 Eos # (Auto) (0.04-0.36) K/mm3 Baso # (Auto) (0.01-0.08) K/mm3 Manual Slide Review PT (9.7-12.0) SECONDS INR APTT (21.7-31.4) SECONDS Sodium (136-145) mEq/L Potassium (3.5-5.1) mEq/L Chloride (98-107) mEq/L Carbon Dioxide (21-32) mEq/L Anion Gap (5-15) BUN (7-18) mg/dL Creatinine (0.55-1.02) mg/dL Est Cr Clr Drug Dosing mL/min Estimated GFR (MDRD) (>60) mL/min BUN/Creatinine Ratio (14-18) Glucose (83-115) mg/dL POC Glucose (70-99) mg/dL Lactic Acid (0.4-2.0) mmol/L Calcium (8.5-10.1) mg/dL Magnesium 2.2 (1.8-2.4) mg/dl Iron (50-170) ug/dL TIBC (100-400) ug/dL % Saturation (20-55) % Transferrin (202-364) mg/dL Total Bilirubin (0.2-1.0) mg/dL AST (15-37) U/L ALT (14-59) U/L Alkaline Phosphatase (46-116) U/L Troponin I (0.00-0.056) ng/mL C-Reactive Protein < 0.2 (<1.0) mg/dL Total Protein (6.4-8.2) g/dl Albumin (3.4-5.0) g/dl Globulin gm/dL Albumin/Globulin Ratio (1-2) Urine Color Light yellow (Yellow) Urine Appearance Slt cloudy H (Clear) Urine pH 7.0 (5.0-8.0) Ur Specific [place] 1.020 (1.005-1.030) Urine Protein Negative (Negative) Urine Glucose (UA) 2+ H (Negative) Urine Ketones 1+ H (Negative) Urine Occult Blood 3+ H (Negative) Urine Nitrite Positive H (Negative) Urine Bilirubin Negative (Negative) Urine Urobilinogen 0.2 (0.2-1.0) Ur Leukocyte Esterase 1+ H (Negative) Urine RBC 10-20 H (0-5) /hpf Urine WBC 20-30 H (0-5) /hpf Ur Squamous Epith Cells 5-10 H (0-5) /hpf Amorphous Sediment Few H (NOT SEEN) /hpf Urine Bacteria Many H (FEW) /hpf Urine Mucus Not seen (FEW) /hpf Ur Random Creatinine 59.7 (30.0-125.0) mg/dL Ur Random Sodium 78 (40-220) mEq/L SARS-CoV-2 RNA (HAYDE) (NEGATIVE) MRSA (PCR) Blood Type Gel Antibody Screen 03/21/21 03/21/21 03/21/21 Range/Units 14:05 14:05 14:05 WBC (3.98-10.04) K/mm3 RBC (3.98-5.22) M/mm3 Hgb 9.3 L (11.2-15.7) gm/dl Hct 30.0 L (34.1-44.9) % MCV (79.4-94.8) fl MCH (25.6-32.2) pg MCHC (32.2-35.5) g/dl RDW Std Deviation (36.4-46.3) fL Plt Count (182-369) K/mm3 MPV (9.4-12.3) fl Neut % (Auto) (34.0-71.1) % Lymph % (Auto) (19.3-51.7) % [place] % (Auto) (4.7-12.5) % Eos % (Auto) (0.7-5.8) Baso % (Auto) (0.1-1.2) % Neut # (Auto) (1.56-6.13) K/mm3 Lymph # (Auto) (1.18-3.74) K/mm3 [place] # (Auto) (0.24-0.36) K/mm3 Eos # (Auto) (0.04-0.36) K/mm3 Baso # (Auto) (0.01-0.08) K/mm3 Manual Slide Review PT (9.7-12.0) SECONDS INR APTT (21.7-31.4) SECONDS Sodium (136-145) mEq/L Potassium 5.4 H (3.5-5.1) mEq/L Chloride (98-107) mEq/L Carbon Dioxide (21-32) mEq/L Anion Gap (5-15) BUN (7-18) mg/dL Creatinine (0.55-1.02) mg/dL Est Cr Clr Drug Dosing mL/min Estimated GFR (MDRD) (>60) mL/min BUN/Creatinine Ratio (14-18) Glucose (83-115) mg/dL POC Glucose (70-99) mg/dL Lactic Acid 1.9 (0.4-2.0) mmol/L Calcium (8.5-10.1) mg/dL Magnesium (1.8-2.4) mg/dl Iron (50-170) ug/dL TIBC (100-400) ug/dL % Saturation (20-55) % Transferrin (202-364) mg/dL Total Bilirubin (0.2-1.0) mg/dL AST (15-37) U/L ALT (14-59) U/L Alkaline Phosphatase (46-116) U/L Troponin I (0.00-0.056) ng/mL C-Reactive Protein (<1.0) mg/dL Total Protein (6.4-8.2) g/dl Albumin (3.4-5.0) g/dl Globulin gm/dL Albumin/Globulin Ratio (1-2) Urine Color (Yellow) Urine Appearance (Clear) Urine pH (5.0-8.0) Ur Specific [place] (1.005-1.030) Urine Protein (Negative) Urine Glucose (UA) (Negative) Urine Ketones (Negative) Urine Occult Blood (Negative) Urine Nitrite (Negative) Urine Bilirubin (Negative) Urine Urobilinogen (0.2-1.0) Ur Leukocyte Esterase (Negative) Urine RBC (0-5) /hpf Urine WBC (0-5) /hpf Ur Squamous Epith Cells (0-5) /hpf Amorphous Sediment (NOT SEEN) /hpf Urine Bacteria (FEW) /hpf Urine Mucus (FEW) /hpf Ur Random Creatinine (30.0-125.0) mg/dL Ur Random Sodium (40-220) mEq/L SARS-CoV-2 RNA (HAYDE) (NEGATIVE) MRSA (PCR) Blood Type Gel Antibody Screen 03/21/21 03/21/21 03/21/21 Range/Units 17:28 20:00 20:06 WBC (3.98-10.04) K/mm3 RBC (3.98-5.22) M/mm3 Hgb 8.6 L (11.2-15.7) gm/dl Hct 27.3 L (34.1-44.9) % MCV (79.4-94.8) fl MCH (25.6-32.2) pg MCHC (32.2-35.5) g/dl RDW Std Deviation (36.4-46.3) fL Plt Count (182-369) K/mm3 MPV (9.4-12.3) fl Neut % (Auto) (34.0-71.1) % Lymph % (Auto) (19.3-51.7) % [place] % (Auto) (4.7-12.5) % Eos % (Auto) (0.7-5.8) Baso % (Auto) (0.1-1.2) % Neut # (Auto) (1.56-6.13) K/mm3 Lymph # (Auto) (1.18-3.74) K/mm3 [place] # (Auto) (0.24-0.36) K/mm3 Eos # (Auto) (0.04-0.36) K/mm3 Baso # (Auto) (0.01-0.08) K/mm3 Manual Slide Review PT (9.7-12.0) SECONDS INR APTT (21.7-31.4) SECONDS Sodium (136-145) mEq/L Potassium (3.5-5.1) mEq/L Chloride (98-107) mEq/L Carbon Dioxide (21-32) mEq/L Anion Gap (5-15) BUN (7-18) mg/dL Creatinine (0.55-1.02) mg/dL Est Cr Clr Drug Dosing mL/min Estimated GFR (MDRD) (>60) mL/min BUN/Creatinine Ratio (14-18) Glucose (83-115) mg/dL POC Glucose 228 H (70-99) mg/dL Lactic Acid (0.4-2.0) mmol/L Calcium (8.5-10.1) mg/dL Magnesium (1.8-2.4) mg/dl Iron (50-170) ug/dL TIBC (100-400) ug/dL % Saturation (20-55) % Transferrin (202-364) mg/dL Total Bilirubin (0.2-1.0) mg/dL AST (15-37) U/L ALT (14-59) U/L Alkaline Phosphatase (46-116) U/L Troponin I (0.00-0.056) ng/mL C-Reactive Protein (<1.0) mg/dL Total Protein (6.4-8.2) g/dl Albumin (3.4-5.0) g/dl Globulin gm/dL Albumin/Globulin Ratio (1-2) Urine Color (Yellow) Urine Appearance (Clear) Urine pH (5.0-8.0) Ur Specific [place] (1.005-1.030) Urine Protein (Negative) Urine Glucose (UA) (Negative) Urine Ketones (Negative) Urine Occult Blood (Negative) Urine Nitrite (Negative) Urine Bilirubin (Negative) Urine Urobilinogen (0.2-1.0) Ur Leukocyte Esterase (Negative) Urine RBC (0-5) /hpf Urine WBC (0-5) /hpf Ur Squamous Epith Cells (0-5) /hpf Amorphous Sediment (NOT SEEN) /hpf Urine Bacteria (FEW) /hpf Urine Mucus (FEW) /hpf Ur Random Creatinine (30.0-125.0) mg/dL Ur Random Sodium (40-220) mEq/L SARS-CoV-2 RNA (HAYDE) (NEGATIVE) MRSA (PCR) Negative Blood Type Gel Antibody Screen 03/21/21 03/22/21 03/22/21 Range/Units 22:38 02:47 02:47 WBC 8.81 (3.98-10.04) K/mm3 RBC 2.44 L (3.98-5.22) M/mm3 Hgb 7.4 L (11.2-15.7) gm/dl Hct 24.0 L (34.1-44.9) % MCV 98.4 H (79.4-94.8) fl MCH 30.3 (25.6-32.2) pg MCHC 30.8 L (32.2-35.5) g/dl RDW Std Deviation 49.5 H (36.4-46.3) fL Plt Count 192 (182-369) K/mm3 MPV 9.9 (9.4-12.3) fl Neut % (Auto) 61.3 (34.0-71.1) % Lymph % (Auto) 30.5 (19.3-51.7) % [place] % (Auto) 6.7 (4.7-12.5) % Eos % (Auto) 1.1 (0.7-5.8) Baso % (Auto) 0.1 (0.1-1.2) % Neut # (Auto) 5.39 (1.56-6.13) K/mm3 Lymph # (Auto) 2.69 (1.18-3.74) K/mm3 [place] # (Auto) 0.59 H (0.24-0.36) K/mm3 Eos # (Auto) 0.10 (0.04-0.36) K/mm3 Baso # (Auto) 0.01 (0.01-0.08) K/mm3 Manual Slide Review Abnormal smear PT (9.7-12.0) SECONDS INR APTT (21.7-31.4) SECONDS Sodium 142 (136-145) mEq/L Potassium 4.3 (3.5-5.1) mEq/L Chloride 109 H (98-107) mEq/L Carbon Dioxide 26 (21-32) mEq/L Anion Gap 11.3 (5-15) BUN 45 H (7-18) mg/dL Creatinine 1.7 H (0.55-1.02) mg/dL Est Cr Clr Drug Dosing 16.11 mL/min Estimated GFR (MDRD) 28 (>60) mL/min BUN/Creatinine Ratio 26.5 H (14-18) Glucose 157 H (83-115) mg/dL POC Glucose 176 H (70-99) mg/dL Lactic Acid (0.4-2.0) mmol/L Calcium 8.3 L (8.5-10.1) mg/dL Magnesium 2.2 (1.8-2.4) mg/dl Iron (50-170) ug/dL TIBC (100-400) ug/dL % Saturation (20-55) % Transferrin (202-364) mg/dL Total Bilirubin (0.2-1.0) mg/dL AST (15-37) U/L ALT (14-59) U/L Alkaline Phosphatase (46-116) U/L Troponin I (0.00-0.056) ng/mL C-Reactive Protein (<1.0) mg/dL Total Protein (6.4-8.2) g/dl Albumin (3.4-5.0) g/dl Globulin gm/dL Albumin/Globulin Ratio (1-2) Urine Color (Yellow) Urine Appearance (Clear) Urine pH (5.0-8.0) Ur Specific [place] (1.005-1.030) Urine Protein (Negative) Urine Glucose (UA) (Negative) Urine Ketones (Negative) Urine Occult Blood (Negative) Urine Nitrite (Negative) Urine Bilirubin (Negative) Urine Urobilinogen (0.2-1.0) Ur Leukocyte Esterase (Negative) Urine RBC (0-5) /hpf Urine WBC (0-5) /hpf Ur Squamous Epith Cells (0-5) /hpf Amorphous Sediment (NOT SEEN) /hpf Urine Bacteria (FEW) /hpf Urine Mucus (FEW) /hpf Ur Random Creatinine (30.0-125.0) mg/dL Ur Random Sodium (40-220) mEq/L SARS-CoV-2 RNA (HAYDE) (NEGATIVE) MRSA (PCR) Blood Type Gel Antibody Screen 03/22/21 03/22/21 Range/Units 02:47 06:17 WBC (3.98-10.04) K/mm3 RBC (3.98-5.22) M/mm3 Hgb (11.2-15.7) gm/dl Hct (34.1-44.9) % MCV (79.4-94.8) fl MCH (25.6-32.2) pg MCHC (32.2-35.5) g/dl RDW Std Deviation (36.4-46.3) fL Plt Count (182-369) K/mm3 MPV (9.4-12.3) fl Neut % (Auto) (34.0-71.1) % Lymph % (Auto) (19.3-51.7) % [place] % (Auto) (4.7-12.5) % Eos % (Auto) (0.7-5.8) Baso % (Auto) (0.1-1.2) % Neut # (Auto) (1.56-6.13) K/mm3 Lymph # (Auto) (1.18-3.74) K/mm3 [place] # (Auto) (0.24-0.36) K/mm3 Eos # (Auto) (0.04-0.36) K/mm3 Baso # (Auto) (0.01-0.08) K/mm3 Manual Slide Review PT (9.7-12.0) SECONDS INR APTT (21.7-31.4) SECONDS Sodium (136-145) mEq/L Potassium (3.5-5.1) mEq/L Chloride (98-107) mEq/L Carbon Dioxide (21-32) mEq/L Anion Gap (5-15) BUN (7-18) mg/dL Creatinine (0.55-1.02) mg/dL Est Cr Clr Drug Dosing mL/min Estimated GFR (MDRD) (>60) mL/min BUN/Creatinine Ratio (14-18) Glucose (83-115) mg/dL POC Glucose 148 H (70-99) mg/dL Lactic Acid (0.4-2.0) mmol/L Calcium (8.5-10.1) mg/dL Magnesium (1.8-2.4) mg/dl Iron 60 (50-170) ug/dL TIBC 255 (100-400) ug/dL % Saturation 24 (20-55) % Transferrin 204 (202-364) mg/dL Total Bilirubin (0.2-1.0) mg/dL AST (15-37) U/L ALT (14-59) U/L Alkaline Phosphatase (46-116) U/L Troponin I (0.00-0.056) ng/mL C-Reactive Protein (<1.0) mg/dL Total Protein (6.4-8.2) g/dl Albumin (3.4-5.0) g/dl Globulin gm/dL Albumin/Globulin Ratio (1-2) Urine Color (Yellow) Urine Appearance (Clear) Urine pH (5.0-8.0) Ur Specific [place] (1.005-1.030) Urine Protein (Negative) Urine Glucose (UA) (Negative) Urine Ketones (Negative) Urine Occult Blood (Negative) Urine Nitrite (Negative) Urine Bilirubin (Negative) Urine Urobilinogen (0.2-1.0) Ur Leukocyte Esterase (Negative) Urine RBC (0-5) /hpf Urine WBC (0-5) /hpf Ur Squamous Epith Cells (0-5) /hpf Amorphous Sediment (NOT SEEN) /hpf Urine Bacteria (FEW) /hpf Urine Mucus (FEW) /hpf Ur Random Creatinine (30.0-125.0) mg/dL Ur Random Sodium (40-220) mEq/L SARS-CoV-2 RNA (HAYDE) (NEGATIVE) MRSA (PCR) Blood Type Gel Antibody Screen [facility] Results Last 24 Hours: Microbiology 03/21/21 20:00 Stool Occult Blood (OCTAVIO) - Final Stool / Feces Med Orders - Current: Current Medications Acetaminophen (Acetaminophen 325 Mg Tab) 650 mg PO Q4H PRN PRN Reason: Pain (Mild 1-3)/fever Albuterol/Ipratropium (Albuterol/Ipratropium 3.0-0.5 Mg/3 Ml Neb Soln) 3 ml NEB QIDRT [facility] Last Admin: 03/22/21 04:59 Dose: 3 ml Documented by: Docusate Sodium (Docusate Sodium 100 Mg Cap) 100 mg PO BID [facility] Last Admin: 03/22/21 00:50 Dose: Not Given Documented by: Furosemide (Furosemide 40 Mg Tab) 20 mg PO DAILY [facility] Gabapentin (Gabapentin 300 Mg Cap) 600 mg PO BID [facility] Last Admin: 03/21/21 22:39 Dose: 600 mg Documented by: Ceftriaxone Sodium 1 gm/ (Sodium Chloride) 100 mls @ 200 mls/hr IV Q24H [facility] Last Admin: 03/21/21 14:09 Dose: 200 mls/hr Documented by: Insulin Human Lispro (Insulin Lispro 100 Unit/Ml) 0 unit SUBCUT QIDACANDBED [facility]; Protocol Last Admin: 03/22/21 06:43 Dose: Not Given Documented by: Metoprolol Succinate (Metoprolol Succinate 50 Mg Tab.Er) 50 mg PO DAILY [facility] Ondansetron HCl (Ondansetron 4 Mg/2 Ml Sdv) 4 mg IV Q6H PRN PRN Reason: Nausea/Vomiting Pantoprazole Sodium (Pantoprazole 40 Mg Vial) 40 mg IV Q12HR [facility] Last Admin: 03/22/21 00:49 Dose: Not Given Documented by: Polyethylene Glycol (Polyethylene Glycol 3350 Powder 17 Gm Packet) 17 gm PO ASDIRECTED PRN PRN Reason: Constipation Discontinued Medications Albuterol (Albuterol 0.083% 2.5 Mg/3 Ml Neb Soln) 2.5 mg NEB ONETIME ONE Stop: 03/21/21 12:42 Last Admin: 03/21/21 15:06 Dose: Not Given Documented by: Dextrose/Lactated Ringer's (Dextrose 5%-Lactated Ringers) 1,000 mls @ 75 mls/hr IV ASDIRECTED [facility] Stop: 03/22/21 01:49 Dextrose/Sodium Chloride (Dextrose 5%-Normal Saline) 1,000 mls @ 75 mls/hr IV ASDIRECTED [facility] Stop: 03/22/21 04:04 Last Admin: 03/21/21 16:08 Dose: 75 mls/hr Documented by: Insulin Human Regular (Insulin Regular, Human 100 Units/Ml 3 Ml Vial) 5 unit SUBCUT ONETIME ONE Stop: 03/21/21 13:01 Last Admin: 03/21/21 14:09 Dose: 5 unit Documented by: Ondansetron HCl (Ondansetron 4 Mg/2 Ml Sdv) 4 mg IVPUSH ONETIME ONE Stop: 03/21/21 10:57 Last Admin: 03/21/21 11:03 Dose: 4 mg Documented by: Pantoprazole Sodium (Pantoprazole 40 Mg Vial) 40 mg IVPUSH ONETIME ONE Stop: 03/21/21 10:57 Last Admin: 03/21/21 11:03 Dose: 40 mg Documented by: - Exam Quality Assessment: Supplemental Oxygen (2L - baseline ), DVT Prophylaxis General: Alert, Oriented, Cooperative, No Acute Distress HEENT: Pupils Equal, Pupils Reactive, Mucous Membr. Moist/[place] Neck: Supple, Trachea Midline Lungs: Clear to Auscultation, Normal Respiratory Effort Cardiovascular: Regular Rate, Irregular Rhythm GI/Abdominal Exam: Normal Bowel Sounds, Soft, Non-Tender, No Distention (Female) Exam: Deferred Extremities: Normal Inspection, Normal Range of Motion, Non-Tender, No Pedal Edema, Normal Capillary Refill Peripheral Pulses: 1+: Dorsalis Pedis (L), Dorsalis Pedis (R), 2+: Radial (L), Radial (R) Skin: Warm, Dry, Intact Neurological: No New Focal Deficit Psy/Mental Status: Alert, Normal Affect, Normal Mood - Patient Data Lab Results Last 24 hrs: Laboratory Results - last 24 hr 03/21/21 03/21/21 03/21/21 Range/Units 08:49 09:08 09:08 WBC 14.03 H (3.98-10.04) K/mm3 RBC 3.19 L (3.98-5.22) M/mm3 Hgb 9.7 L (11.2-15.7) gm/dl Hct 31.4 L (34.1-44.9) % MCV 98.4 H D (79.4-94.8) fl MCH 30.4 (25.6-32.2) pg MCHC 30.9 L (32.2-35.5) g/dl RDW Std Deviation 50.5 H (36.4-46.3) fL Plt Count 246 (182-369) K/mm3 MPV 10.1 (9.4-12.3) fl Neut % (Auto) 85.4 H (34.0-71.1) % Lymph % (Auto) 10.4 L (19.3-51.7) % [place] % (Auto) 3.3 L (4.7-12.5) % Eos % (Auto) 0.1 L (0.7-5.8) Baso % (Auto) 0.2 (0.1-1.2) % Neut # (Auto) 11.97 H (1.56-6.13) K/mm3 Lymph # (Auto) 1.46 (1.18-3.74) K/mm3 [place] # (Auto) 0.47 H (0.24-0.36) K/mm3 Eos # (Auto) 0.02 L (0.04-0.36) K/mm3 Baso # (Auto) 0.03 (0.01-0.08) K/mm3 Manual Slide Review Normal smear PT 10.9 (9.7-12.0) SECONDS INR 1.02 APTT 21.0 L (21.7-31.4) SECONDS Sodium (136-145) mEq/L Potassium (3.5-5.1) mEq/L Chloride (98-107) mEq/L Carbon Dioxide (21-32) mEq/L Anion Gap (5-15) BUN (7-18) mg/dL Creatinine (0.55-1.02) mg/dL Est Cr Clr Drug Dosing mL/min Estimated GFR (MDRD) (>60) mL/min BUN/Creatinine Ratio (14-18) Glucose (83-115) mg/dL POC Glucose (70-99) mg/dL Lactic Acid (0.4-2.0) mmol/L Calcium (8.5-10.1) mg/dL Magnesium (1.8-2.4) mg/dl Iron (50-170) ug/dL TIBC (100-400) ug/dL % Saturation (20-55) % Transferrin (202-364) mg/dL Total Bilirubin (0.2-1.0) mg/dL AST (15-37) U/L ALT (14-59) U/L Alkaline Phosphatase (46-116) U/L Troponin I (0.00-0.056) ng/mL C-Reactive Protein (<1.0) mg/dL Total Protein (6.4-8.2) g/dl Albumin (3.4-5.0) g/dl Globulin gm/dL Albumin/Globulin Ratio (1-2) Urine Color (Yellow) Urine Appearance (Clear) Urine pH (5.0-8.0) Ur Specific [place] (1.005-1.030) Urine Protein (Negative) Urine Glucose (UA) (Negative) Urine Ketones (Negative) Urine Occult Blood (Negative) Urine Nitrite (Negative) Urine Bilirubin (Negative) Urine Urobilinogen (0.2-1.0) Ur Leukocyte Esterase (Negative) Urine RBC (0-5) /hpf Urine WBC (0-5) /hpf Ur Squamous Epith Cells (0-5) /hpf Amorphous Sediment (NOT SEEN) /hpf Urine Bacteria (FEW) /hpf Urine Mucus (FEW) /hpf Ur Random Creatinine (30.0-125.0) mg/dL Ur Random Sodium (40-220) mEq/L SARS-CoV-2 RNA (HAYDE) Negative (NEGATIVE) MRSA (PCR) Blood Type Gel Antibody Screen 03/21/21 03/21/21 03/21/21 Range/Units 09:08 09:08 09:08 WBC (3.98-10.04) K/mm3 RBC (3.98-5.22) M/mm3 Hgb (11.2-15.7) gm/dl Hct (34.1-44.9) % MCV (79.4-94.8) fl MCH (25.6-32.2) pg MCHC (32.2-35.5) g/dl RDW Std Deviation (36.4-46.3) fL Plt Count (182-369) K/mm3 MPV (9.4-12.3) fl Neut % (Auto) (34.0-71.1) % Lymph % (Auto) (19.3-51.7) % [place] % (Auto) (4.7-12.5) % Eos % (Auto) (0.7-5.8) Baso % (Auto) (0.1-1.2) % Neut # (Auto) (1.56-6.13) K/mm3 Lymph # (Auto) (1.18-3.74) K/mm3 [place] # (Auto) (0.24-0.36) K/mm3 Eos # (Auto) (0.04-0.36) K/mm3 Baso # (Auto) (0.01-0.08) K/mm3 Manual Slide Review PT (9.7-12.0) SECONDS INR APTT (21.7-31.4) SECONDS Sodium 137 (136-145) mEq/L Potassium 5.6 H D (3.5-5.1) mEq/L Chloride 104 (98-107) mEq/L Carbon Dioxide 25 (21-32) mEq/L Anion Gap 13.6 (5-15) BUN 57 H (7-18) mg/dL Creatinine 1.7 H (0.55-1.02) mg/dL Est Cr Clr Drug Dosing 16.11 mL/min Estimated GFR (MDRD) 28 (>60) mL/min BUN/Creatinine Ratio 33.5 H (14-18) Glucose 306 H (83-115) mg/dL POC Glucose (70-99) mg/dL Lactic Acid (0.4-2.0) mmol/L Calcium 8.9 (8.5-10.1) mg/dL Magnesium (1.8-2.4) mg/dl Iron (50-170) ug/dL TIBC (100-400) ug/dL % Saturation (20-55) % Transferrin (202-364) mg/dL Total Bilirubin 0.6 (0.2-1.0) mg/dL AST 11 L (15-37) U/L ALT 20 (14-59) U/L Alkaline Phosphatase 91 (46-116) U/L Troponin I < 0.017 (0.00-0.056) ng/mL C-Reactive Protein (<1.0) mg/dL Total Protein 6.7 (6.4-8.2) g/dl Albumin 3.2 L (3.4-5.0) g/dl Globulin 3.5 gm/dL Albumin/Globulin Ratio 0.9 L (1-2) Urine Color (Yellow) Urine Appearance (Clear) Urine pH (5.0-8.0) Ur Specific [place] (1.005-1.030) Urine Protein (Negative) Urine Glucose (UA) (Negative) Urine Ketones (Negative) Urine Occult Blood (Negative) Urine Nitrite (Negative) Urine Bilirubin (Negative) Urine Urobilinogen (0.2-1.0) Ur Leukocyte Esterase (Negative) Urine RBC (0-5) /hpf Urine WBC (0-5) /hpf Ur Squamous Epith Cells (0-5) /hpf Amorphous Sediment (NOT SEEN) /hpf Urine Bacteria (FEW) /hpf Urine Mucus (FEW) /hpf Ur Random Creatinine (30.0-125.0) mg/dL Ur Random Sodium (40-220) mEq/L SARS-CoV-2 RNA (HAYDE) (NEGATIVE) MRSA (PCR) Blood Type O NEGATIVE Gel Antibody Screen Negative 03/21/21 03/21/21 03/21/21 Range/Units 09:08 09:24 09:24 WBC (3.98-10.04) K/mm3 RBC (3.98-5.22) M/mm3 Hgb (11.2-15.7) gm/dl Hct (34.1-44.9) % MCV (79.4-94.8) fl MCH (25.6-32.2) pg MCHC (32.2-35.5) g/dl RDW Std Deviation (36.4-46.3) fL Plt Count (182-369) K/mm3 MPV (9.4-12.3) fl Neut % (Auto) (34.0-71.1) % Lymph % (Auto) (19.3-51.7) % [place] % (Auto) (4.7-12.5) % Eos % (Auto) (0.7-5.8) Baso % (Auto) (0.1-1.2) % Neut # (Auto) (1.56-6.13) K/mm3 Lymph # (Auto) (1.18-3.74) K/mm3 [place] # (Auto) (0.24-0.36) K/mm3 Eos # (Auto) (0.04-0.36) K/mm3 Baso # (Auto) (0.01-0.08) K/mm3 Manual Slide Review PT (9.7-12.0) SECONDS INR APTT (21.7-31.4) SECONDS Sodium (136-145) mEq/L Potassium (3.5-5.1) mEq/L Chloride (98-107) mEq/L Carbon Dioxide (21-32) mEq/L Anion Gap (5-15) BUN (7-18) mg/dL Creatinine (0.55-1.02) mg/dL Est Cr Clr Drug Dosing mL/min Estimated GFR (MDRD) (>60) mL/min BUN/Creatinine Ratio (14-18) Glucose (83-115) mg/dL POC Glucose (70-99) mg/dL Lactic Acid (0.4-2.0) mmol/L Calcium (8.5-10.1) mg/dL Magnesium 2.2 (1.8-2.4) mg/dl Iron (50-170) ug/dL TIBC (100-400) ug/dL % Saturation (20-55) % Transferrin (202-364) mg/dL Total Bilirubin (0.2-1.0) mg/dL AST (15-37) U/L ALT (14-59) U/L Alkaline Phosphatase (46-116) U/L Troponin I (0.00-0.056) ng/mL C-Reactive Protein < 0.2 (<1.0) mg/dL Total Protein (6.4-8.2) g/dl Albumin (3.4-5.0) g/dl Globulin gm/dL Albumin/Globulin Ratio (1-2) Urine Color Light yellow (Yellow) Urine Appearance Slt cloudy H (Clear) Urine pH 7.0 (5.0-8.0) Ur Specific [place] 1.020 (1.005-1.030) Urine Protein Negative (Negative) Urine Glucose (UA) 2+ H (Negative) Urine Ketones 1+ H (Negative) Urine Occult Blood 3+ H (Negative) Urine Nitrite Positive H (Negative) Urine Bilirubin Negative (Negative) Urine Urobilinogen 0.2 (0.2-1.0) Ur Leukocyte Esterase 1+ H (Negative) Urine RBC 10-20 H (0-5) /hpf Urine WBC 20-30 H (0-5) /hpf Ur Squamous Epith Cells 5-10 H (0-5) /hpf Amorphous Sediment Few H (NOT SEEN) /hpf Urine Bacteria Many H (FEW) /hpf Urine Mucus Not seen (FEW) /hpf Ur Random Creatinine 59.7 (30.0-125.0) mg/dL Ur Random Sodium 78 (40-220) mEq/L SARS-CoV-2 RNA (HAYDE) (NEGATIVE) MRSA (PCR) Blood Type Gel Antibody Screen 03/21/21 03/21/21 03/21/21 Range/Units 14:05 14:05 14:05 WBC (3.98-10.04) K/mm3 RBC (3.98-5.22) M/mm3 Hgb 9.3 L (11.2-15.7) gm/dl Hct 30.0 L (34.1-44.9) % MCV (79.4-94.8) fl MCH (25.6-32.2) pg MCHC (32.2-35.5) g/dl RDW Std Deviation (36.4-46.3) fL Plt Count (182-369) K/mm3 MPV (9.4-12.3) fl Neut % (Auto) (34.0-71.1) % Lymph % (Auto) (19.3-51.7) % [place] % (Auto) (4.7-12.5) % Eos % (Auto) (0.7-5.8) Baso % (Auto) (0.1-1.2) % Neut # (Auto) (1.56-6.13) K/mm3 Lymph # (Auto) (1.18-3.74) K/mm3 [place] # (Auto) (0.24-0.36) K/mm3 Eos # (Auto) (0.04-0.36) K/mm3 Baso # (Auto) (0.01-0.08) K/mm3 Manual Slide Review PT (9.7-12.0) SECONDS INR APTT (21.7-31.4) SECONDS Sodium (136-145) mEq/L Potassium 5.4 H (3.5-5.1) mEq/L Chloride (98-107) mEq/L Carbon Dioxide (21-32) mEq/L Anion Gap (5-15) BUN (7-18) mg/dL Creatinine (0.55-1.02) mg/dL Est Cr Clr Drug Dosing mL/min Estimated GFR (MDRD) (>60) mL/min BUN/Creatinine Ratio (14-18) Glucose (83-115) mg/dL POC Glucose (70-99) mg/dL Lactic Acid 1.9 (0.4-2.0) mmol/L Calcium (8.5-10.1) mg/dL Magnesium (1.8-2.4) mg/dl Iron (50-170) ug/dL TIBC (100-400) ug/dL % Saturation (20-55) % Transferrin (202-364) mg/dL Total Bilirubin (0.2-1.0) mg/dL AST (15-37) U/L ALT (14-59) U/L Alkaline Phosphatase (46-116) U/L Troponin I (0.00-0.056) ng/mL C-Reactive Protein (<1.0) mg/dL Total Protein (6.4-8.2) g/dl Albumin (3.4-5.0) g/dl Globulin gm/dL Albumin/Globulin Ratio (1-2) Urine Color (Yellow) Urine Appearance (Clear) Urine pH (5.0-8.0) Ur Specific [place] (1.005-1.030) Urine Protein (Negative) Urine Glucose (UA) (Negative) Urine Ketones (Negative) Urine Occult Blood (Negative) Urine Nitrite (Negative) Urine Bilirubin (Negative) Urine Urobilinogen (0.2-1.0) Ur Leukocyte Esterase (Negative) Urine RBC (0-5) /hpf Urine WBC (0-5) /hpf Ur Squamous Epith Cells (0-5) /hpf Amorphous Sediment (NOT SEEN) /hpf Urine Bacteria (FEW) /hpf Urine Mucus (FEW) /hpf Ur Random Creatinine (30.0-125.0) mg/dL Ur Random Sodium (40-220) mEq/L SARS-CoV-2 RNA (HAYDE) (NEGATIVE) MRSA (PCR) Blood Type Gel Antibody Screen 03/21/21 03/21/21 03/21/21 Range/Units 17:28 20:00 20:06 WBC (3.98-10.04) K/mm3 RBC (3.98-5.22) M/mm3 Hgb 8.6 L (11.2-15.7) gm/dl Hct 27.3 L (34.1-44.9) % MCV (79.4-94.8) fl MCH (25.6-32.2) pg MCHC (32.2-35.5) g/dl RDW Std Deviation (36.4-46.3) fL Plt Count (182-369) K/mm3 MPV (9.4-12.3) fl Neut % (Auto) (34.0-71.1) % Lymph % (Auto) (19.3-51.7) % [place] % (Auto) (4.7-12.5) % Eos % (Auto) (0.7-5.8) Baso % (Auto) (0.1-1.2) % Neut # (Auto) (1.56-6.13) K/mm3 Lymph # (Auto) (1.18-3.74) K/mm3 [place] # (Auto) (0.24-0.36) K/mm3 Eos # (Auto) (0.04-0.36) K/mm3 Baso # (Auto) (0.01-0.08) K/mm3 Manual Slide Review PT (9.7-12.0) SECONDS INR APTT (21.7-31.4) SECONDS Sodium (136-145) mEq/L Potassium (3.5-5.1) mEq/L Chloride (98-107) mEq/L Carbon Dioxide (21-32) mEq/L Anion Gap (5-15) BUN (7-18) mg/dL Creatinine (0.55-1.02) mg/dL Est Cr Clr Drug Dosing mL/min Estimated GFR (MDRD) (>60) mL/min BUN/Creatinine Ratio (14-18) Glucose (83-115) mg/dL POC Glucose 228 H (70-99) mg/dL Lactic Acid (0.4-2.0) mmol/L Calcium (8.5-10.1) mg/dL Magnesium (1.8-2.4) mg/dl Iron (50-170) ug/dL TIBC (100-400) ug/dL % Saturation (20-55) % Transferrin (202-364) mg/dL Total Bilirubin (0.2-1.0) mg/dL AST (15-37) U/L ALT (14-59) U/L Alkaline Phosphatase (46-116) U/L Troponin I (0.00-0.056) ng/mL C-Reactive Protein (<1.0) mg/dL Total Protein (6.4-8.2) g/dl Albumin (3.4-5.0) g/dl Globulin gm/dL Albumin/Globulin Ratio (1-2) Urine Color (Yellow) Urine Appearance (Clear) Urine pH (5.0-8.0) Ur Specific [place] (1.005-1.030) Urine Protein (Negative) Urine Glucose (UA) (Negative) Urine Ketones (Negative) Urine Occult Blood (Negative) Urine Nitrite (Negative) Urine Bilirubin (Negative) Urine Urobilinogen (0.2-1.0) Ur Leukocyte Esterase (Negative) Urine RBC (0-5) /hpf Urine WBC (0-5) /hpf Ur Squamous Epith Cells (0-5) /hpf Amorphous Sediment (NOT SEEN) /hpf Urine Bacteria (FEW) /hpf Urine Mucus (FEW) /hpf Ur Random Creatinine (30.0-125.0) mg/dL Ur Random Sodium (40-220) mEq/L SARS-CoV-2 RNA (HAYDE) (NEGATIVE) MRSA (PCR) Negative Blood Type Gel Antibody Screen 03/21/21 03/22/21 03/22/21 Range/Units 22:38 02:47 02:47 WBC 8.81 (3.98-10.04) K/mm3 RBC 2.44 L (3.98-5.22) M/mm3 Hgb 7.4 L (11.2-15.7) gm/dl Hct 24.0 L (34.1-44.9) % MCV 98.4 H (79.4-94.8) fl MCH 30.3 (25.6-32.2) pg MCHC 30.8 L (32.2-35.5) g/dl RDW Std Deviation 49.5 H (36.4-46.3) fL Plt Count 192 (182-369) K/mm3 MPV 9.9 (9.4-12.3) fl Neut % (Auto) 61.3 (34.0-71.1) % Lymph % (Auto) 30.5 (19.3-51.7) % [place] % (Auto) 6.7 (4.7-12.5) % Eos % (Auto) 1.1 (0.7-5.8) Baso % (Auto) 0.1 (0.1-1.2) % Neut # (Auto) 5.39 (1.56-6.13) K/mm3 Lymph # (Auto) 2.69 (1.18-3.74) K/mm3 [place] # (Auto) 0.59 H (0.24-0.36) K/mm3 Eos # (Auto) 0.10 (0.04-0.36) K/mm3 Baso # (Auto) 0.01 (0.01-0.08) K/mm3 Manual Slide Review Abnormal smear PT (9.7-12.0) SECONDS INR APTT (21.7-31.4) SECONDS Sodium 142 (136-145) mEq/L Potassium 4.3 (3.5-5.1) mEq/L Chloride 109 H (98-107) mEq/L Carbon Dioxide 26 (21-32) mEq/L Anion Gap 11.3 (5-15) BUN 45 H (7-18) mg/dL Creatinine 1.7 H (0.55-1.02) mg/dL Est Cr Clr Drug Dosing 16.11 mL/min Estimated GFR (MDRD) 28 (>60) mL/min BUN/Creatinine Ratio 26.5 H (14-18) Glucose 157 H (83-115) mg/dL POC Glucose 176 H (70-99) mg/dL Lactic Acid (0.4-2.0) mmol/L Calcium 8.3 L (8.5-10.1) mg/dL Magnesium 2.2 (1.8-2.4) mg/dl Iron (50-170) ug/dL TIBC (100-400) ug/dL % Saturation (20-55) % Transferrin (202-364) mg/dL Total Bilirubin (0.2-1.0) mg/dL AST (15-37) U/L ALT (14-59) U/L Alkaline Phosphatase (46-116) U/L Troponin I (0.00-0.056) ng/mL C-Reactive Protein (<1.0) mg/dL Total Protein (6.4-8.2) g/dl Albumin (3.4-5.0) g/dl Globulin gm/dL Albumin/Globulin Ratio (1-2) Urine Color (Yellow) Urine Appearance (Clear) Urine pH (5.0-8.0) Ur Specific [place] (1.005-1.030) Urine Protein (Negative) Urine Glucose (UA) (Negative) Urine Ketones (Negative) Urine Occult Blood (Negative) Urine Nitrite (Negative) Urine Bilirubin (Negative) Urine Urobilinogen (0.2-1.0) Ur Leukocyte Esterase (Negative) Urine RBC (0-5) /hpf Urine WBC (0-5) /hpf Ur Squamous Epith Cells (0-5) /hpf Amorphous Sediment (NOT SEEN) /hpf Urine Bacteria (FEW) /hpf Urine Mucus (FEW) /hpf Ur Random Creatinine (30.0-125.0) mg/dL Ur Random Sodium (40-220) mEq/L SARS-CoV-2 RNA (HAYDE) (NEGATIVE) MRSA (PCR) Blood Type Gel Antibody Screen 03/22/21 03/22/21 Range/Units 02:47 06:17 WBC (3.98-10.04) K/mm3 RBC (3.98-5.22) M/mm3 Hgb (11.2-15.7) gm/dl Hct (34.1-44.9) % MCV (79.4-94.8) fl MCH (25.6-32.2) pg MCHC (32.2-35.5) g/dl RDW Std Deviation (36.4-46.3) fL Plt Count (182-369) K/mm3 MPV (9.4-12.3) fl Neut % (Auto) (34.0-71.1) % Lymph % (Auto) (19.3-51.7) % [place] % (Auto) (4.7-12.5) % Eos % (Auto) (0.7-5.8) Baso % (Auto) (0.1-1.2) % Neut # (Auto) (1.56-6.13) K/mm3 Lymph # (Auto) (1.18-3.74) K/mm3 [place] # (Auto) (0.24-0.36) K/mm3 Eos # (Auto) (0.04-0.36) K/mm3 Baso # (Auto) (0.01-0.08) K/mm3 Manual Slide Review PT (9.7-12.0) SECONDS INR APTT (21.7-31.4) SECONDS Sodium (136-145) mEq/L Potassium (3.5-5.1) mEq/L Chloride (98-107) mEq/L Carbon Dioxide (21-32) mEq/L Anion Gap (5-15) BUN (7-18) mg/dL Creatinine (0.55-1.02) mg/dL Est Cr Clr Drug Dosing mL/min Estimated GFR (MDRD) (>60) mL/min BUN/Creatinine Ratio (14-18) Glucose (83-115) mg/dL POC Glucose 148 H (70-99) mg/dL Lactic Acid (0.4-2.0) mmol/L Calcium (8.5-10.1) mg/dL Magnesium (1.8-2.4) mg/dl Iron 60 (50-170) ug/dL TIBC 255 (100-400) ug/dL % Saturation 24 (20-55) % Transferrin 204 (202-364) mg/dL Total Bilirubin (0.2-1.0) mg/dL AST (15-37) U/L ALT (14-59) U/L Alkaline Phosphatase (46-116) U/L Troponin I (0.00-0.056) ng/mL C-Reactive Protein (<1.0) mg/dL Total Protein (6.4-8.2) g/dl Albumin (3.4-5.0) g/dl Globulin gm/dL Albumin/Globulin Ratio (1-2) Urine Color (Yellow) Urine Appearance (Clear) Urine pH (5.0-8.0) Ur Specific [place] (1.005-1.030) Urine Protein (Negative) Urine Glucose (UA) (Negative) Urine Ketones (Negative) Urine Occult Blood (Negative) Urine Nitrite (Negative) Urine Bilirubin (Negative) Urine Urobilinogen (0.2-1.0) Ur Leukocyte Esterase (Negative) Urine RBC (0-5) /hpf Urine WBC (0-5) /hpf Ur Squamous Epith Cells (0-5) /hpf Amorphous Sediment (NOT SEEN) /hpf Urine Bacteria (FEW) /hpf Urine Mucus (FEW) /hpf Ur Random Creatinine (30.0-125.0) mg/dL Ur Random Sodium (40-220) mEq/L SARS-CoV-2 RNA (HAYDE) (NEGATIVE) MRSA (PCR) Blood Type Gel Antibody Screen Result Diagrams: 03/22/21 09:22 03/22/21 02:47 Octavio Results Last 24 hrs: Microbiology 03/21/21 20:00 Stool Occult Blood (OCTAVIO) - Final Stool / Feces Sepsis Event Note - Evaluation Sepsis Screening Result: No Definite Risk - Focused Exam Vital Signs: Vital Signs Pulse Resp BP Pulse Ox Pulse Ox 03/22/21 04:55 98 03/22/21 01:00 14 03/22/21 00:00 14 03/21/21 23:00 17 03/21/21 22:00 15 03/21/21 21:07 99 03/21/21 21:00 24 H 03/21/21 20:00 17 03/21/21 19:40 85 18 119/54 L 97 - Problem List & Annotations (1) GI bleed SNOMED Code(s): 40608863 Code(s): K92.2 - GASTROINTESTINAL HEMORRHAGE, UNSPECIFIED Status: Acute Priority: High Current Visit: Yes Qualifiers: GI bleed type/associated pathology: melena Qualified Code(s): K92.1 - Melena (2) CHF (congestive heart failure), NYHA class II SNOMED Code(s): 568897476, 727621007 Code(s): I50.9 - HEART FAILURE, UNSPECIFIED Status: Chronic Priority: Medium Current Visit: No Qualifiers: Congestive heart failure type: combined Congestive heart failure chronicity: acute on chronic Qualified Code(s): I50.43 - Acute on chronic combined systolic (congestive) and diastolic (congestive) heart failure (3) Leukocytosis SNOMED Code(s): 471489899, 386681247 Code(s): D72.829 - ELEVATED WHITE BLOOD CELL COUNT, UNSPECIFIED Status: Acute Priority: High Current Visit: Yes Qualifiers: Leukocytosis type: unspecified Qualified Code(s): D72.829 - Elevated white blood cell count, unspecified (4) Afib SNOMED Code(s): 17628072 Code(s): I48.91 - UNSPECIFIED ATRIAL FIBRILLATION Status: Chronic Priority: Medium Current Visit: No Qualifiers: Atrial fibrillation type: paroxysmal Qualified Code(s): I48.0 - Paroxysmal atrial fibrillation (5) Anemia SNOMED Code(s): 500646740 Code(s): D64.9 - ANEMIA, UNSPECIFIED Status: Acute Priority: Medium Current Visit: Yes Qualifiers: Anemia type: due to chronic 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) Qualified Code(s): N18.4 - Chronic kidney disease, stage 4 (severe); D63.1 - Anemia in chronic kidney disease (6) Chronic back pain SNOMED Code(s): 548285667 Code(s): M54.9 - DORSALGIA, UNSPECIFIED; G89.29 - OTHER CHRONIC PAIN Status: Chronic Priority: Low Current Visit: No Qualifiers: Back pain location: back pain in unspecified location Back pain laterality: unspecified Qualified Code(s): M54.9 - Dorsalgia, unspecified; G89.29 - Other chronic pain (7) Chronic constipation SNOMED Code(s): 677452549 Code(s): K59.09 - OTHER CONSTIPATION Status: Chronic Priority: Low Current Visit: No (8) DM2 (diabetes mellitus, type 2) SNOMED Code(s): 77126967 Code(s): E11.9 - TYPE 2 DIABETES MELLITUS WITHOUT COMPLICATIONS Status: Chronic Priority: Medium Current Visit: Yes Qualifiers: Diabetes mellitus termination clerk insulin use: unspecified group home insulin use status Diabetes mellitus complication status: with other specified complication Qualified Code(s): E11.69 - Type 2 diabetes mellitus with other specified complication (9) Depression SNOMED Code(s): 06358002 Code(s): F32.9 - MAJOR DEPRESSIVE DISORDER, SINGLE EPISODE, UNSPECIFIED Status: Chronic Priority: Low Current Visit: No Qualifiers: Depression Type: other depression Qualified Code(s): F32.89 - Other specified depressive episodes (10) HTN (hypertension) SNOMED Code(s): 42715347 Code(s): I10 - ESSENTIAL (PRIMARY) HYPERTENSION Status: Chronic Priority: Medium Current Visit: No Qualifiers: Hypertension type: unspecified Qualified Code(s): I10 - Essential (primary) hypertension (11) History of TIA (transient ischemic attack) SNOMED Code(s): 681490072 Code(s): Z86.73 - PRSNL HX OF TIA (TIA), AND CEREB INFRC W/O RESID DEFICITS Status: Chronic Priority: Low Current Visit: No (12) snf resident SNOMED Code(s): 262951491 Code(s): Z59.3 - PROBLEMS RELATED TO LIVING IN RESIDENTIAL INSTITUTION Status: Chronic Priority: Low Current Visit: No (13) Generalized weakness SNOMED Code(s): 12913040 Code(s): R53.1 - WEAKNESS Status: Acute Priority: High Current Visit: Yes (14) Hyperkalemia SNOMED Code(s): 88606185 Code(s): E87.5 - HYPERKALEMIA Status: Acute Priority: High Current Visit: Yes (15) CKD (chronic kidney disease) stage 4, GFR 15-29 ml/min SNOMED Code(s): 121192816 Code(s): N18.4 - CHRONIC KIDNEY DISEASE, STAGE 4 (SEVERE) Status: Chronic Priority: Medium Current Visit: Yes (16) Dysphagia SNOMED Code(s): 52060545, 051278019 Code(s): R13.10 - DYSPHAGIA, UNSPECIFIED Status: Chronic Priority: Low Current Visit: No Qualifiers: Dysphagia type: unspecified Qualified Code(s): R13.10 - Dysphagia, unspecif ied (17) Recurrent pneumonia SNOMED Code(s): 921115576 Code(s): J18.9 - PNEUMONIA, UNSPECIFIED ORGANISM Status: Chronic Priority: Low Current Visit: No (18) Chronic respiratory failure with hypoxia, on home oxygen therapy SNOMED Code(s): 523524779 Code(s): J96.11 - CHRONIC RESPIRATORY FAILURE WITH HYPOXIA; Z99.81 - DEPENDENCE ON SUPPLEMENTAL OXYGEN Status: Chronic Priority: Medium Current Visit: Yes (19) History of CVA (cerebrovascular accident) SNOMED Code(s): 355245208 Code(s): Z86.73 - PRSNL HX OF TIA (TIA), AND CEREB INFRC W/O RESID DEFICITS Status: Chronic Priority: Medium Current Visit: No (20) Vascular dementia SNOMED Code(s): 830576341 Code(s): F01.50 - VASCULAR DEMENTIA WITHOUT BEHAVIORAL DISTURBANCE Status: Chronic Priority: Medium Current Visit: No Qualifiers: Dementia behavioral disturbance: without behavioral disturbance Qualified Code(s): F01.50 - Vascular dementia without behavioral disturbance (21) Urinary retention SNOMED Code(s): 300341557 Code(s): R33.9 - RETENTION OF URINE, UNSPECIFIED Status: Chronic Priority: Low Current Visit: No (22) UTI (urinary tract infection) SNOMED Code(s): 40084507 Code(s): N39.0 - URINARY TRACT INFECTION, SITE NOT SPECIFIED Status: Acute Priority: High Current Visit: Yes Qualifiers: Urinary tract infection type: acute cystitis Hematuria presence: with hematuria Qualified Code(s): N30.01 - Acute cystitis with hematuria (23) Hyperglycemia due to type 2 diabetes mellitus SNOMED Code(s): 288551441240988, 779541224487516 Code(s): E11.65 - TYPE 2 DIABETES MELLITUS WITH HYPERGLYCEMIA Status: Acute Priority: High Current Visit: Yes Qualifiers: Diabetes mellitus group home insulin use: with termination clerk use Qualified Code(s): E11.65 - Type 2 diabetes mellitus with hyperglycemia; Z79.4 - continuous churn buttermaker (current) use of insulin - Problem List Review Problem List Initiated/Reviewed/Updated: Yes - My Orders Last 24 Hours: My Active Orders 03/21/21 09:08 PROCALCITONIN [REF] Routine 03/21/21 09:24 CULTURE URINE [RM] Routine 03/21/21 12:06 polyethylene glycoL 3350 [MiraLAX] 17 gm PO ASDIRECTED PRN 03/21/21 12:07 RT Aerosol Therapy [RC] ASDIRECTED 03/21/21 12:08 Patient Status [ADT] Routine Height and Weight [RC] 06 Up With Assistance [RC] BID VTE/DVT Education [RC] 10,22 Vital Signs [RC] Q4H Consult to Case Management/Coagulating Operator [CONS] Routine Consult to Physician [CONS] Routine Consult to Spiritual Care [CONS] Routine OT Evaluation and Treatment [CONS] Routine PT Evaluation and Treatment [CONS] Routine Respiratory Care Assess and Treatment [CONS] Routine Acetaminophen [TylenoL] 650 mg PO Q4H PRN Ondansetron [Zofran] 4 mg IV Q6H PRN Resuscitation Status Routine 03/21/21 12:09 Intake and Output [RC] 04,16 Pulse Oximetry [RC] PRN 03/21/21 12:10 Antiembolic Devices [RC] 10,22 Antiembolic Hose [OM.PC] Per Unit Routine Sequential Compression Device [OM.PC] Per Unit Routine 03/21/21 12:22 Accu Check [Blood Glucose Check, Bedside] [RC] QIDACANDBED 03/21/21 12:41 RT Aerosol Therapy [RC] ASDIRECTED 03/21/21 13:22 Blood Culture x2 Reflex Set [OM.PC] Stat 03/21/21 13:52 Heat Therapy [OM.PC] Routine VTE Pharmacological Contraindications [AST] Click to Edit 03/21/21 13:56 Let Patient Sleep Protocol [RC] BEDTIME 03/21/21 14:00 cefTRIAXone [Rocephin] 1 gm Sodium Chloride 0.9% [Normal Saline] 100 ml IV Q24H 03/21/21 14:05 CULTURE BLOOD [BC] Stat 03/21/21 14:12 CULTURE BLOOD [BC] Stat 03/21/21 16:00 Albuterol/Ipratropium [DuoNeb 3.0-0.5 MG/3 ML] 3 ml NEB QIDRT 03/21/21 Dinner Consistent Carbohydrate Diet [DIET] Insulin Lispro [HumaLOG] See Protocol SUBCUT QIDACANDBED 03/21/21 21:00 Docusate Sodium [Colace] 100 mg PO BID Gabapentin [Neurontin] 600 mg PO BID Pantoprazole [ProTONIX IV] 40 mg IV Q12HR 03/22/21 09:00 Furosemide [Lasix] 20 mg PO DAILY Metoprolol Succinate [Toprol XL] 50 mg PO DAILY 03/23/21 05:11 BASIC METABOLIC PANEL,BMP [CHEM] AM CBC WITH AUTO DIFF [HEME] AM MAGNESIUM [CHEM] AM 03/24/21 05:11 BASIC METABOLIC PANEL,BMP [CHEM] AM CBC WITH AUTO DIFF [HEME] AM MAGNESIUM [CHEM] AM 03/25/21 05:11 BASIC METABOLIC PANEL,BMP [CHEM] AM CBC WITH AUTO DIFF [HEME] AM MAGNESIUM [CHEM] AM - Assessment Assessment:: Assessment - day of admission 03/21/2021 * 89-year-old female presents via [place] [facility] to ED for GI bleed * [facility] * Noted to have melena and coffee-ground emesis around 7 AM this morning. * Patient is on Plavix and aspirin for prior CVA, TIA, and A. fib. * Also carries history of: heart failure, HTN, anemia, recurrent pneumonia, hypoxemia requiring home O2, chronic constipation, dysphagia, CKD stage IV, urinary retention, chronic back pain, neuralgia, vascular dementia, depression, type II DM. * Twelve-lead EKG shows sinus rhythm with Q waves in III and aVF. Low voltage in precordial leads. No acute change from 12/2020 * Labs obtained in ED: * WBC 14.03 * Hemoglobin 9.7, hematocrit 31.4 * Platelet 246,000 * Neutrophils elevated at 85.4% * INR 1.02 * APTT 21.0 * Sodium 137 * Potassium 5.6 * Carbon dioxide 25 * Anion gap 13.6 * BUN 57, creatinine 1.7, GFR 28 * Glucose 306 * Calcium 8.9 * Total bilirubin 0.6 * AST 11, ALT 20, alkaline phosphatase 91 * Troponin less than 0.017 * Albumin 3.2 * SARS Covid 2 RNA negative * Blood type O negative; gel antibody screen negative * Given 4 mg IV push of Zofran and 40 mg IV push Protonix in ED * Noted to have episode of coffee-ground emesis with blood streaks, approximately 10 mL in ED. * Admitted to medical surgical floor for management of GI bleed and hyperkalemia. * Labs on floor: * CRP less than 0.2 * Magnesium 2.2 * UA: Slightly cloudy with 2+ glucose, 1+ ketones, 3+ occult blood, positive nitrate, 1+ leukocyte esterase, 10-20 RBC, 20-30 WBC, 5-10 squamous epithelial cells, few amorphous sediment, many bacteria * Blood cultures ordered * Started on 1 g Rocephin. 03/23/2021 * Hgb trend since admission: 9.7-->9.3-->8.6-->7.4-->8.8 * Patient remains pale * 1 unit PRBC ordered overnight but patient refused transfusion * Per overnight nurse patient reports she is ready to and does not want procedure * Potassium down to 4.3; BUN down from 57 to 45 * Labs otherwise stable * Awaiting blood and urine cultures - >100CFUs of gram negative rods thus far * Procalcitonin pending * Occult stool positive * Urine sodium 78, Urine creatinine 59.7. * Iron panel: Iron 60, TIBC 255, percent saturation 24, transferrin 204 * Dr. Adams, general surgeon, following * Increase sliding scale insulin to medium * Clear liquid diet for now * Continue Rocephin * Continue current treatment plan - Plan Plan:: GI bleed Anemia Generalized weakness snf resident * IVP Protonix BID * General surgery consultation - Dr. Adams contacted in ED * Trend Hgb * Transfuse if Hgb <7 * Telemetry * Hold ASA and Plavix for now * PT/OT consultation * CM/SW consultation * Clear liquid diet for now UTI (urinary tract infection) Urinary retention Leukocytosis * Urine culture * Continue Rocephin 1gm daily * Blood cultures X2 * Procalcitonin * Daily labs including CRP * Monitor for fever Hyperkalemia, Resolved CKD (chronic kidney disease) stage 4, GFR 15-29 ml/min * Telemetry * Hold spironolactone * Urine sodium/creatine WNL CHF (congestive heart failure), NYHA class II Afib HTN (hypertension) * No acute concerns * Hold ASA and Plavix as above * Telemetry * No acute concerns * Continue home HTN meds Chronic back pain * Heating pad PRN * Pain medications PRN * No acute concerns Chronic constipation * Continue home meds * Monitor BMs * No acute concerns DM2 (diabetes mellitus, type 2) Hyperglycemia due to type 2 diabetes mellitus * Blood glucose checks QID AC and Bedtime * Increase to medium dose SS insulin * A1C 7.0 on 01/04/2021 * Consistent carb diet Chronic respiratory failure with hypoxia, on home oxygen therapy Recurrent pneumonia Dysphagia * No acute concerns * O2 with goal saturations >92% * RT/RN to adjust as needed * Home scheduled Duonebs * Monitor swallowing - Per daughter patient was on thickened liquids awhile ago but has been regular/thin most recently. History of TIA (transient ischemic attack) History of CVA (cerebrovascular accident) Vascular dementia * No acute concerns * Let me sleep protocol Depression * No acute concerns Code Status: DNR/DNI (confirmed with patient and daughter on 03/21/2021) PCP: Dr. Winchester VTE prophylaxis: SCDs and MCKAY sinclair. Pharmacological prophylaxis contraindicated due to GI bleed. Social: Patient resides at [facility] Disposition: Patient admitted to medical surgical floor for management of her acute GI bleed and hyperkalemia. Found to have UTI as well. Likely length of stay 3 to 4 days.
--- NOTE | 2021-03-22 07:37 | PCM.SN.2 ---
- Free Text/Narrative Note: GI bleed in 89 yo woman living in longterm on aspirin and plavix S: no acute events overnight. Patient refuses transfusion and wants to go home. O: AF-HR 85, BP 120/55, RR 18, on nasal cannula 2 L SpO2 >90% Resting comfortably Appears pale Hgb down to 7.4 from 9.7 yesterday A: GI bleed, likely gastric source, on antiplatelet therapy P: Agree with current measures; hold antiplatelet medication, continue IV protonix If patient refuses transfusion, it may be more prudent to scope (EGD) early and intervene as necessary if patient consents. Keep NPO for now. I am available to discuss treatment options and goals of care with family. Will see what Hgb is again at 9 AM.
[2021-03-22] MEDS: Gabapentin 300 MG Cap PO SCH ×2 (08:14→08:26)
[2021-03-22] MEDS: Metoprolol Succinate 50 MG Tab.ER PO SCH (08:26)
[2021-03-22] MEDS ORDERED: Furosemide 40 MG Tab PO SCH (09:00)
[2021-03-22] MEDS: cefTRIAXone 1 GM in Sodium Chloride 0.9% 100 ML IV SCH (13:45)
[2021-03-22] MEDS: Gabapentin 600 MG Tab PO SCH (20:31)
[2021-03-23] MEDS: Insulin Lispro 100 UNIT/ML 10 ML Vial SUBCUT SCH ×5 (00:19→22:05)
[2021-03-23] MEDS: Albuterol/Ipratropium 3.0-0.5 MG/3 ML Neb Soln NEB SCH (06:31)
--- NOTE | 2021-03-23 07:21 | PCM.PN ---
- General Info Date of Service: 03/23/21 Admission Dx/Problem (Free Text): GI Bleed Functional Status: Reports: Pain Controlled, Tolerating Diet, Ambulating, Urinating. Denies: New Symptoms - Review of Systems General: Reports: Weakness, Fatigue, Malaise. Denies: No Symptoms, Fever, Chills HEENT: Reports: No Symptoms. Denies: Headaches, Sore Throat Pulmonary: Reports: No Symptoms. Denies: Shortness of Breath, Cough, Sputum, Wheezing Cardiovascular: Reports: No Symptoms. Denies: Chest Pain, Palpitations, Dyspnea on Exertion Gastrointestinal: Reports: No Symptoms. Denies: Abdominal Pain, Constipation, Diarrhea, Nausea, Vomiting Genitourinary: Reports: No Symptoms. Denies: Pain Musculoskeletal: Reports: No Symptoms Skin: Reports: No Symptoms. Denies: Cyanosis Neurological: Reports: Pre-Existing Deficit (Difficulty walking at baseline ), Difficulty Walking, Weakness, Gait Disturbance. Denies: Confusion Psychiatric: Reports: No Symptoms - Patient Data Vitals - Most Recent: Last Vital Signs Temp 98.1 F 03/23/21 05:43 Pulse 73 03/23/21 05:43 Resp 14 03/23/21 05:43 BP 115/31 L 03/23/21 05:43 Pulse Ox 95 03/23/21 06:30 Weight - Most Recent: 144 lb 6.4 oz I&O - Last 24 Hours: Intake & Output 03/22/21 03/23/21 03/23/21 22:59 06:59 14:59 Intake Total 500 400 Output Total 400 500 Balance 100 -100 Lab Results Last 24 Hours: Laboratory Results - last 24 hr 03/21/21 03/22/21 03/22/21 Range/Units 09:08 09:22 11:00 WBC (3.98-10.04) K/mm3 RBC (3.98-5.22) M/mm3 Hgb 8.8 L (11.2-15.7) gm/dl Hct 28.9 L (34.1-44.9) % MCV (79.4-94.8) fl MCH (25.6-32.2) pg MCHC (32.2-35.5) g/dl RDW Std Deviation (36.4-46.3) fL Plt Count (182-369) K/mm3 MPV (9.4-12.3) fl Neut % (Auto) (34.0-71.1) % Lymph % (Auto) (19.3-51.7) % Frontier % (Auto) (4.7-12.5) % Eos % (Auto) (0.7-5.8) Baso % (Auto) (0.1-1.2) % Neut # (Auto) (1.56-6.13) K/mm3 Lymph # (Auto) (1.18-3.74) K/mm3 Frontier # (Auto) (0.24-0.36) K/mm3 Eos # (Auto) (0.04-0.36) K/mm3 Baso # (Auto) (0.01-0.08) K/mm3 Manual Slide Review Sodium (136-145) mEq/L Potassium (3.5-5.1) mEq/L Chloride (98-107) mEq/L Carbon Dioxide (21-32) mEq/L Anion Gap (5-15) BUN (7-18) mg/dL Creatinine (0.55-1.02) mg/dL Est Cr Clr Drug Dosing mL/min Estimated GFR (MDRD) (>60) mL/min BUN/Creatinine Ratio (14-18) Glucose (83-115) mg/dL POC Glucose 164 H (70-99) mg/dL Calcium (8.5-10.1) mg/dL Magnesium (1.8-2.4) mg/dl Procalcitonin 0.09 ng/mL 03/22/21 03/22/21 03/22/21 Range/Units 15:03 16:57 21:18 WBC (3.98-10.04) K/mm3 RBC (3.98-5.22) M/mm3 Hgb 8.3 L 7.9 L (11.2-15.7) gm/dl Hct 27.6 L 25.9 L (34.1-44.9) % MCV (79.4-94.8) fl MCH (25.6-32.2) pg MCHC (32.2-35.5) g/dl RDW Std Deviation (36.4-46.3) fL Plt Count (182-369) K/mm3 MPV (9.4-12.3) fl Neut % (Auto) (34.0-71.1) % Lymph % (Auto) (19.3-51.7) % Frontier % (Auto) (4.7-12.5) % Eos % (Auto) (0.7-5.8) Baso % (Auto) (0.1-1.2) % Neut # (Auto) (1.56-6.13) K/mm3 Lymph # (Auto) (1.18-3.74) K/mm3 Frontier # (Auto) (0.24-0.36) K/mm3 Eos # (Auto) (0.04-0.36) K/mm3 Baso # (Auto) (0.01-0.08) K/mm3 Manual Slide Review Sodium (136-145) mEq/L Potassium (3.5-5.1) mEq/L Chloride (98-107) mEq/L Carbon Dioxide (21-32) mEq/L Anion Gap (5-15) BUN (7-18) mg/dL Creatinine (0.55-1.02) mg/dL Est Cr Clr Drug Dosing mL/min Estimated GFR (MDRD) (>60) mL/min BUN/Creatinine Ratio (14-18) Glucose (83-115) mg/dL POC Glucose 176 H (70-99) mg/dL Calcium (8.5-10.1) mg/dL Magnesium (1.8-2.4) mg/dl Procalcitonin ng/mL 03/22/21 03/23/21 03/23/21 Range/Units 23:54 03:54 03:54 WBC 7.65 (3.98-10.04) K/mm3 RBC 2.38 L (3.98-5.22) M/mm3 Hgb 7.3 L* (11.2-15.7) gm/dl Hct 23.6 L (34.1-44.9) % MCV 99.2 H (79.4-94.8) fl MCH 30.7 (25.6-32.2) pg MCHC 30.9 L (32.2-35.5) g/dl RDW Std Deviation 49.9 H (36.4-46.3) fL Plt Count 186 (182-369) K/mm3 MPV 9.8 (9.4-12.3) fl Neut % (Auto) 63.9 (34.0-71.1) % Lymph % (Auto) 27.7 (19.3-51.7) % Frontier % (Auto) 5.6 (4.7-12.5) % Eos % (Auto) 2.2 (0.7-5.8) Baso % (Auto) 0.3 (0.1-1.2) % Neut # (Auto) 4.89 (1.56-6.13) K/mm3 Lymph # (Auto) 2.12 (1.18-3.74) K/mm3 Frontier # (Auto) 0.43 H (0.24-0.36) K/mm3 Eos # (Auto) 0.17 (0.04-0.36) K/mm3 Baso # (Auto) 0.02 (0.01-0.08) K/mm3 Manual Slide Review Abnormal smear Sodium 142 (136-145) mEq/L Potassium 4.3 (3.5-5.1) mEq/L Chloride 108 H (98-107) mEq/L Carbon Dioxide 27 (21-32) mEq/L Anion Gap 11.3 (5-15) BUN 34 H (7-18) mg/dL Creatinine 1.5 H (0.55-1.02) mg/dL Est Cr Clr Drug Dosing 18.26 mL/min Estimated GFR (MDRD) 33 (>60) mL/min BUN/Creatinine Ratio 22.7 H (14-18) Glucose 144 H (83-115) mg/dL POC Glucose 151 H (70-99) mg/dL Calcium 8.2 L (8.5-10.1) mg/dL Magnesium 2.1 (1.8-2.4) mg/dl Procalcitonin ng/mL 03/23/21 Range/Units 05:43 WBC (3.98-10.04) K/mm3 RBC (3.98-5.22) M/mm3 Hgb (11.2-15.7) gm/dl Hct (34.1-44.9) % MCV (79.4-94.8) fl MCH (25.6-32.2) pg MCHC (32.2-35.5) g/dl RDW Std Deviation (36.4-46.3) fL Plt Count (182-369) K/mm3 MPV (9.4-12.3) fl Neut % (Auto) (34.0-71.1) % Lymph % (Auto) (19.3-51.7) % Frontier % (Auto) (4.7-12.5) % Eos % (Auto) (0.7-5.8) Baso % (Auto) (0.1-1.2) % Neut # (Auto) (1.56-6.13) K/mm3 Lymph # (Auto) (1.18-3.74) K/mm3 Frontier # (Auto) (0.24-0.36) K/mm3 Eos # (Auto) (0.04-0.36) K/mm3 Baso # (Auto) (0.01-0.08) K/mm3 Manual Slide Review Sodium (136-145) mEq/L Potassium (3.5-5.1) mEq/L Chloride (98-107) mEq/L Carbon Dioxide (21-32) mEq/L Anion Gap (5-15) BUN (7-18) mg/dL Creatinine (0.55-1.02) mg/dL Est Cr Clr Drug Dosing mL/min Estimated GFR (MDRD) (>60) mL/min BUN/Creatinine Ratio (14-18) Glucose (83-115) mg/dL POC Glucose 140 H (70-99) mg/dL Calcium (8.5-10.1) mg/dL Magnesium (1.8-2.4) mg/dl Procalcitonin ng/mL Octavio Results Last 24 Hours: Microbiology 03/21/21 14:12 Aerobic Blood Culture - Preliminary Blood - Venous - Lab Draw NO GROWTH AFTER 1 DAY Anaerobic Blood Culture - Preliminary NO GROWTH AFTER 1 DAY 03/21/21 14:05 Aerobic Blood Culture - Preliminary Blood - Venous NO GROWTH AFTER 1 DAY Anaerobic Blood Culture - Preliminary NO GROWTH AFTER 1 DAY 03/21/21 09:24 Urine Culture - Preliminary Urine, Clean Catch Gram Negative Rods Med Orders - Current: Current Medications Acetaminophen (Acetaminophen 325 Mg Tab) 650 mg PO Q4H PRN PRN Reason: Pain (Mild 1-3)/fever Albuterol/Ipratropium (Albuterol/Ipratropium 3.0-0.5 Mg/3 Ml Neb Soln) 3 ml NEB QIDRT KANNAN Last Admin: 03/23/21 06:31 Dose: Not Given Documented by: Furosemide (Furosemide 20 Mg Tab) 20 mg PO DAILY COUNT INCLUDES THE [facility] Gabapentin (Gabapentin 600 Mg Tab) 600 mg PO BID COUNT INCLUDES THE [facility] Last Admin: 03/22/21 20:31 Dose: 600 mg Documented by: Ceftriaxone Sodium 1 gm/ (Sodium Chloride) 100 mls @ 200 mls/hr IV Q24H COUNT INCLUDES THE [facility] Last Admin: 03/22/21 13:45 Dose: 200 mls/hr Documented by: Insulin Human Lispro (Insulin Lispro 100 Unit/Ml) 0 unit SUBCUT QIDACANDBED COUNT INCLUDES THE [facility]; Protocol Last Admin: 03/23/21 00:19 Dose: Not Given Documented by: Metoprolol Succinate (Metoprolol Succinate 50 Mg Tab.Er) 50 mg PO DAILY COUNT INCLUDES THE [facility] Last Admin: 03/22/21 08:26 Dose: Not Given Documented by: Ondansetron HCl (Ondansetron 4 Mg/2 Ml Sdv) 4 mg IV Q6H PRN PRN Reason: Nausea/Vomiting Pantoprazole Sodium (Pantoprazole 40 Mg Vial) 40 mg IV Q12HR COUNT INCLUDES THE [facility] Last Admin: 03/22/21 20:30 Dose: 40 mg Documented by: Polyethylene Glycol (Polyethylene Glycol 3350 Powder 17 Gm Packet) 17 gm PO ASDIRECTED PRN PRN Reason: Constipation Discontinued Medications Albuterol (Albuterol 0.083% 2.5 Mg/3 Ml Neb Soln) 2.5 mg NEB ONETIME ONE Stop: 03/21/21 12:42 Last Admin: 03/21/21 15:06 Dose: Not Given Documented by: Docusate Sodium (Docusate Sodium 100 Mg Cap) 100 mg PO BID COUNT INCLUDES THE [facility] Last Admin: 03/22/21 08:27 Dose: Not Given Documented by: Furosemide (Furosemide 40 Mg Tab) 20 mg PO DAILY COUNT INCLUDES THE [facility] Last Admin: 03/22/21 08:26 Dose: Not Given Documented by: Gabapentin (Gabapentin 300 Mg Cap) 600 mg PO BID COUNT INCLUDES THE [facility] Last Admin: 03/22/21 08:26 Dose: Not Given Documented by: Dextrose/Lactated Ringer's (Dextrose 5%-Lactated Ringers) 1,000 mls @ 75 mls/hr IV ASDIRECTED COUNT INCLUDES THE [facility] Stop: 03/22/21 01:49 Dextrose/Sodium Chloride (Dextrose 5%-Normal Saline) 1,000 mls @ 75 mls/hr IV ASDIRECTED COUNT INCLUDES THE [facility] Stop: 03/22/21 04:04 Last Admin: 03/21/21 16:08 Dose: 75 mls/hr Documented by: Insulin Human Regular (Insulin Regular, Human 100 Units/Ml 3 Ml Vial) 5 unit SUBCUT ONETIME ONE Stop: 03/21/21 13:01 Last Admin: 03/21/21 14:09 Dose: 5 unit Documented by: Ondansetron HCl (Ondansetron 4 Mg/2 Ml Sdv) 4 mg IVPUSH ONETIME ONE Stop: 03/21/21 10:57 Last Admin: 03/21/21 11:03 Dose: 4 mg Documented by: Pantoprazole Sodium (Pantoprazole 40 Mg Vial) 40 mg IVPUSH ONETIME ONE Stop: 03/21/21 10:57 Last Admin: 03/21/21 11:03 Dose: 40 mg Documented by: - Exam Quality Assessment: Supplemental Oxygen (2L), DVT Prophylaxis General: Alert, Oriented, Cooperative, No Acute Distress, Other (Looks pale ) HEENT: Pupils Equal, Mucous Membr. Moist/Inland Neck: Supple, Trachea Midline Lungs: Clear to Auscultation, Normal Respiratory Effort Cardiovascular: Regular Rate, Irregular Rhythm GI/Abdominal Exam: Normal Bowel Sounds, Soft, Non-Tender, No Distention (Female) Exam: Deferred Back Exam: Normal Inspection, Full Range of Motion Extremities: Normal Inspection, Normal Range of Motion, Non-Tender, No Pedal Edema, Normal Capillary Refill Peripheral Pulses: 2+: Radial (L), Radial (R), Dorsalis Pedis (L), Dorsalis Pedis (R) Skin: Warm, Dry, Intact Neurological: No New Focal Deficit Psy/Mental Status: Alert, Anxious - Patient Data Lab Results Last 24 hrs: Laboratory Results - last 24 hr 03/21/21 03/22/21 03/22/21 Range/Units 09:08 09:22 11:00 WBC (3.98-10.04) K/mm3 RBC (3.98-5.22) M/mm3 Hgb 8.8 L (11.2-15.7) gm/dl Hct 28.9 L (34.1-44.9) % MCV (79.4-94.8) fl MCH (25.6-32.2) pg MCHC (32.2-35.5) g/dl RDW Std Deviation (36.4-46.3) fL Plt Count (182-369) K/mm3 MPV (9.4-12.3) fl Neut % (Auto) (34.0-71.1) % Lymph % (Auto) (19.3-51.7) % Frontier % (Auto) (4.7-12.5) % Eos % (Auto) (0.7-5.8) Baso % (Auto) (0.1-1.2) % Neut # (Auto) (1.56-6.13) K/mm3 Lymph # (Auto) (1.18-3.74) K/mm3 Frontier # (Auto) (0.24-0.36) K/mm3 Eos # (Auto) (0.04-0.36) K/mm3 Baso # (Auto) (0.01-0.08) K/mm3 Manual Slide Review Sodium (136-145) mEq/L Potassium (3.5-5.1) mEq/L Chloride (98-107) mEq/L Carbon Dioxide (21-32) mEq/L Anion Gap (5-15) BUN (7-18) mg/dL Creatinine (0.55-1.02) mg/dL Est Cr Clr Drug Dosing mL/min Estimated GFR (MDRD) (>60) mL/min BUN/Creatinine Ratio (14-18) Glucose (83-115) mg/dL POC Glucose 164 H (70-99) mg/dL Calcium (8.5-10.1) mg/dL Magnesium (1.8-2.4) mg/dl Procalcitonin 0.09 ng/mL 03/22/21 03/22/21 03/22/21 Range/Units 15:03 16:57 21:18 WBC (3.98-10.04) K/mm3 RBC (3.98-5.22) M/mm3 Hgb 8.3 L 7.9 L (11.2-15.7) gm/dl Hct 27.6 L 25.9 L (34.1-44.9) % MCV (79.4-94.8) fl MCH (25.6-32.2) pg MCHC (32.2-35.5) g/dl RDW Std Deviation (36.4-46.3) fL Plt Count (182-369) K/mm3 MPV (9.4-12.3) fl Neut % (Auto) (34.0-71.1) % Lymph % (Auto) (19.3-51.7) % Frontier % (Auto) (4.7-12.5) % Eos % (Auto) (0.7-5.8) Baso % (Auto) (0.1-1.2) % Neut # (Auto) (1.56-6.13) K/mm3 Lymph # (Auto) (1.18-3.74) K/mm3 Frontier # (Auto) (0.24-0.36) K/mm3 Eos # (Auto) (0.04-0.36) K/mm3 Baso # (Auto) (0.01-0.08) K/mm3 Manual Slide Review Sodium (136-145) mEq/L Potassium (3.5-5.1) mEq/L Chloride (98-107) mEq/L Carbon Dioxide (21-32) mEq/L Anion Gap (5-15) BUN (7-18) mg/dL Creatinine (0.55-1.02) mg/dL Est Cr Clr Drug Dosing mL/min Estimated GFR (MDRD) (>60) mL/min BUN/Creatinine Ratio (14-18) Glucose (83-115) mg/dL POC Glucose 176 H (70-99) mg/dL Calcium (8.5-10.1) mg/dL Magnesium (1.8-2.4) mg/dl Procalcitonin ng/mL 03/22/21 03/23/21 03/23/21 Range/Units 23:54 03:54 03:54 WBC 7.65 (3.98-10.04) K/mm3 RBC 2.38 L (3.98-5.22) M/mm3 Hgb 7.3 L* (11.2-15.7) gm/dl Hct 23.6 L (34.1-44.9) % MCV 99.2 H (79.4-94.8) fl MCH 30.7 (25.6-32.2) pg MCHC 30.9 L (32.2-35.5) g/dl RDW Std Deviation 49.9 H (36.4-46.3) fL Plt Count 186 (182-369) K/mm3 MPV 9.8 (9.4-12.3) fl Neut % (Auto) 63.9 (34.0-71.1) % Lymph % (Auto) 27.7 (19.3-51.7) % Frontier % (Auto) 5.6 (4.7-12.5) % Eos % (Auto) 2.2 (0.7-5.8) Baso % (Auto) 0.3 (0.1-1.2) % Neut # (Auto) 4.89 (1.56-6.13) K/mm3 Lymph # (Auto) 2.12 (1.18-3.74) K/mm3 Frontier # (Auto) 0.43 H (0.24-0.36) K/mm3 Eos # (Auto) 0.17 (0.04-0.36) K/mm3 Baso # (Auto) 0.02 (0.01-0.08) K/mm3 Manual Slide Review Abnormal smear Sodium 142 (136-145) mEq/L Potassium 4.3 (3.5-5.1) mEq/L Chloride 108 H (98-107) mEq/L Carbon Dioxide 27 (21-32) mEq/L Anion Gap 11.3 (5-15) BUN 34 H (7-18) mg/dL Creatinine 1.5 H (0.55-1.02) mg/dL Est Cr Clr Drug Dosing 18.26 mL/min Estimated GFR (MDRD) 33 (>60) mL/min BUN/Creatinine Ratio 22.7 H (14-18) Glucose 144 H (83-115) mg/dL POC Glucose 151 H (70-99) mg/dL Calcium 8.2 L (8.5-10.1) mg/dL Magnesium 2.1 (1.8-2.4) mg/dl Procalcitonin ng/mL 03/23/21 Range/Units 05:43 WBC (3.98-10.04) K/mm3 RBC (3.98-5.22) M/mm3 Hgb (11.2-15.7) gm/dl Hct (34.1-44.9) % MCV (79.4-94.8) fl MCH (25.6-32.2) pg MCHC (32.2-35.5) g/dl RDW Std Deviation (36.4-46.3) fL Plt Count (182-369) K/mm3 MPV (9.4-12.3) fl Neut % (Auto) (34.0-71.1) % Lymph % (Auto) (19.3-51.7) % Frontier % (Auto) (4.7-12.5) % Eos % (Auto) (0.7-5.8) Baso % (Auto) (0.1-1.2) % Neut # (Auto) (1.56-6.13) K/mm3 Lymph # (Auto) (1.18-3.74) K/mm3 Frontier # (Auto) (0.24-0.36) K/mm3 Eos # (Auto) (0.04-0.36) K/mm3 Baso # (Auto) (0.01-0.08) K/mm3 Manual Slide Review Sodium (136-145) mEq/L Potassium (3.5-5.1) mEq/L Chloride (98-107) mEq/L Carbon Dioxide (21-32) mEq/L Anion Gap (5-15) BUN (7-18) mg/dL Creatinine (0.55-1.02) mg/dL Est Cr Clr Drug Dosing mL/min Estimated GFR (MDRD) (>60) mL/min BUN/Creatinine Ratio (14-18) Glucose (83-115) mg/dL POC Glucose 140 H (70-99) mg/dL Calcium (8.5-10.1) mg/dL Magnesium (1.8-2.4) mg/dl Procalcitonin ng/mL Result Diagrams: 03/23/21 03:54 03/23/21 03:54 Octavio Results Last 24 hrs: Microbiology 03/21/21 14:12 Aerobic Blood Culture - Preliminary Blood - Venous - Lab Draw NO GROWTH AFTER 1 DAY Anaerobic Blood Culture - Preliminary NO GROWTH AFTER 1 DAY 03/21/21 14:05 Aerobic Blood Culture - Preliminary Blood - Venous NO GROWTH AFTER 1 DAY Anaerobic Blood Culture - Preliminary NO GROWTH AFTER 1 DAY 03/21/21 09:24 Urine Culture - Preliminary Urine, Clean Catch Gram Negative Rods Sepsis Event Note - Evaluation Sepsis Screening Result: No Definite Risk - Focused Exam Vital Signs: Vital Signs Temp Pulse Resp BP Pulse Ox Pulse Ox 03/23/21 06:30 95 03/23/21 05:43 98.1 F 73 14 115/31 L 95 03/23/21 00:12 98.2 F 76 16 107/57 L 94 L 03/22/21 20:51 100 03/22/21 20:26 98.1 F 78 16 120/95 H 98 - Problem List & Annotations (1) GI bleed SNOMED Code(s): 26491658 Code(s): K92.2 - GASTROINTESTINAL HEMORRHAGE, UNSPECIFIED Status: Acute Priority: High Current Visit: Yes Qualifiers: GI bleed type/associated pathology: melena Qualified Code(s): K92.1 - Melena (2) CHF (congestive heart failure), NYHA class II SNOMED Code(s): 257750089, 714396203 Code(s): I50.9 - HEART FAILURE, UNSPECIFIED Status: Chronic Priority: Medium Current Visit: No Qualifiers: Congestive heart failure type: combined Congestive heart failure chronicity: acute on chronic Qualified Code(s): I50.43 - Acute on chronic c ombined systolic (congestive) and diastolic (congestive) heart failure (3) Leukocytosis SNOMED Code(s): 821636826, 138627177 Code(s): D72.829 - ELEVATED WHITE BLOOD CELL COUNT, UNSPECIFIED Status: Acute Priority: High Current Visit: Yes Qualifiers: Leukocytosis type: unspecified Qualified Code(s): D72.829 - Elevated white blood cell count, unspecified (4) Afib SNOMED Code(s): 43379342 Code(s): I48.91 - UNSPECIFIED ATRIAL FIBRILLATION Status: Chronic Priority: Medium Current Visit: No Qualifiers: Atrial fibrillation type: paroxysmal Qualified Code(s): I48.0 - Paroxysmal atrial fibrillation (5) Anemia SNOMED Code(s): 464075711 Code(s): D64.9 - ANEMIA, UNSPECIFIED Status: Acute Priority: Medium Current Visit: Yes Qualifiers: Anemia type: due to chronic 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) Qualified Code(s): N18.4 - Chronic kidney disease, stage 4 (severe); D63.1 - Anemia in chronic kidney disease (6) Chronic back pain SNOMED Code(s): 911403315 Code(s): M54.9 - DORSALGIA, UNSPECIFIED; G89.29 - OTHER CHRONIC PAIN Status: Chronic Priority: Low Current Visit: No Qualifiers: Back pain location: back pain in unspecified location Back pain laterality: unspecified Qualified Code(s): M54.9 - Dorsalgia, unspecified; G89.29 - Other chronic pain (7) Chronic constipation SNOMED Code(s): 865694673 Code(s): K59.09 - OTHER CONSTIPATION Status: Chronic Priority: Low Current Visit: No (8) DM2 (diabetes mellitus, type 2) SNOMED Code(s): 48702935 Code(s): E11.9 - TYPE 2 DIABETES MELLITUS WITHOUT COMPLICATIONS Status: Chronic Priority: Medium Current Visit: Yes Qualifiers: Diabetes mellitus shelter insulin use: unspecified shelter insulin use status Diabetes mellitus complication status: with other specified co mplication Qualified Code(s): E11.69 - Type 2 diabetes mellitus with other specified complication (9) Depression SNOMED Code(s): 21820226 Code(s): F32.9 - MAJOR DEPRESSIVE DISORDER, SINGLE EPISODE, UNSPECIFIED Status: Chronic Priority: Low Current Visit: No Qualifiers: Depression Type: other depression Qualified Code(s): F32.89 - Other specified depressive episodes (10) HTN (hypertension) SNOMED Code(s): 51177153 Code(s): I10 - ESSENTIAL (PRIMARY) HYPERTENSION Status: Chronic Priority: Medium Current Visit: No Qualifiers: Hypertension type: unspecified Qualified Code(s): I10 - Essential (primary) hypertension (11) History of TIA (transient ischemic attack) SNOMED Code(s): 157989439 Code(s): Z86.73 - PRSNL HX OF TIA (TIA), AND CEREB INFRC W/O RESID DEFICITS Status: Chronic Priority: Low Current Visit: No (12) assisted resident SNOMED Code(s): 868294378 Code(s): Z59.3 - PROBLEMS RELATED TO LIVING IN RESIDENTIAL INSTITUTION Status: Chronic Priority: Low Current Visit: No (13) Generalized weakness SNOMED Code(s): 72947721 Code(s): R53.1 - WEAKNESS Status: Acute Priority: High Current Visit: Yes (14) Hyperkalemia SNOMED Code(s): 02475836 Code(s): E87.5 - HYPERKALEMIA Status: Acute Priority: High Current Visit: Yes (15) CKD (chronic kidney disease) stage 4, GFR 15-29 ml/min SNOMED Code(s): 361245856 Code(s): N18.4 - CHRONIC KIDNEY DISEASE, STAGE 4 (SEVERE) Status: Chronic Priority: Medium Current Visit: Yes (16) Dysphagia SNOMED Code(s): 07896409, 893109749 Code(s): R13.10 - DYSPHAGIA, UNSPECIFIED Status: Chronic Priority: Low Current Visit: No Qualifiers: Dysphagia type: unspecified Qualified Code(s): R13.10 - Dysphagia, unspecified (17) Recurrent pneumonia SNOMED Code(s): 312137549 Code(s): J18.9 - PNEUMONIA, UNSPECIFIED ORGANISM Status: Chronic Priority: Low Current Visit: No (18) Chronic respiratory failure with hypoxia, on home oxygen therapy SNOMED Code(s): 190343368 Code(s): J96.11 - CHRONIC RESPIRATORY FAILURE WITH HYPOXIA; Z99.81 - DEPENDENCE ON SUPPLEMENTAL OXYGEN Status: Chronic Priority: Medium Current Visit: Yes (19) History of CVA (cerebrovascular accident) SNOMED Code(s): 983220155 Code(s): Z86.73 - PRSNL HX OF TIA (TIA), AND CEREB INFRC W/O RESID DEFICITS Status: Chronic Priority: Medium Current Visit: No (20) Vascular dementia SNOMED Code(s): 880912352 Code(s): F01.50 - VASCULAR DEMENTIA WITHOUT BEHAVIORAL DISTURBANCE Status: Chronic Priority: Medium Current Visit: No Qualifiers: Dementia behavioral disturbance: without behavioral disturbance Qualified Code(s): F01.50 - Vascular dementia without behavioral disturbance (21) Urinary retention SNOMED Code(s): 461583113 Code(s): R33.9 - RETENTION OF URINE, UNSPECIFIED Status: Chronic Priority: Low Current Visit: No (22) UTI (urinary tract infection) SNOMED Code(s): 03945915 Code(s): N39.0 - URINARY TRACT INFECTION, SITE NOT SPECIFIED Status: Acute Priority: High Current Visit: Yes Qualifiers: Urinary tract infection type: acute cystitis Hematuria presence: with hematuria Qualified Code(s): N30.01 - Acute cystitis with hematuria (23) Hyperglycemia due to type 2 diabetes mellitus SNOMED Code(s): 442719828418725, 609167324812214 Code(s): E11.65 - TYPE 2 DIABETES MELLITUS WITH HYPERGLYCEMIA Status: Acute Priority: High Current Visit: Yes Qualifiers: 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 Qualified Cod e(s): E11.65 - Type 2 diabetes mellitus with hyperglycemia; Z79.4 - detention (current) use of insulin - Problem List Review Problem List Initiated/Reviewed/Updated: Yes - My Orders Last 24 Hours: My Active Orders 03/22/21 09:00 Metoprolol Succinate [Toprol XL] 50 mg PO DAILY 03/22/21 Lunch Clear Liquid Diet [DIET] 03/22/21 21:00 Gabapentin [Neurontin] 600 mg PO BID 03/23/21 09:00 Furosemide [Lasix] 20 mg PO DAILY 03/24/21 05:11 BASIC METABOLIC PANEL,BMP [CHEM] AM CBC WITH AUTO DIFF [HEME] AM MAGNESIUM [CHEM] AM 03/25/21 05:11 BASIC METABOLIC PANEL,BMP [CHEM] AM CBC WITH AUTO DIFF [HEME] AM MAGNESIUM [CHEM] AM - Assessment Assessment:: Assessment - day of admission 03/21/2021 * 89-year-old female presents via [facility] to ED for GI bleed * Patient resides at [facility]. * Noted to have melena and coffee-ground emesis around 7 AM this morning. * Patient is on Plavix and aspirin for prior CVA, TIA, and A. fib. * Also carries history of: heart failure, HTN, anemia, recurrent pneumonia, hypoxemia requiring home O2, chronic constipation, dysphagia, CKD stage IV, urinary retention, chronic back pain, neuralgia, vascular dementia, depression, type II DM. * Twelve-lead EKG shows sinus rhythm with Q waves in III and aVF. Low voltage in precordial leads. No acute change from 12/2020 * Labs obtained in ED: * WBC 14.03 * Hemoglobin 9.7, hematocrit 31.4 * Platelet 246,000 * Neutrophils elevated at 85.4% * INR 1.02 * APTT 21.0 * Sodium 137 * Potassium 5.6 * Carbon dioxide 25 * Anion gap 13.6 * BUN 57, creatinine 1.7, GFR 28 * Glucose 306 * Calcium 8.9 * Total bilirubin 0.6 * AST 11, ALT 20, alkaline phosphatase 91 * Troponin less than 0.017 * Albumin 3.2 * SARS Covid 2 RNA negative * Blood type O negative; gel antibody screen negative * Given 4 mg IV push of Zofran and 40 mg IV push Protonix in ED * Noted to have episode of coffee-ground emesis with blood streaks, approximately 10 mL in ED. * Admitted to medical surgical floor for management of GI bleed and hyperkalemia. * Labs on floor: * CRP less than 0.2 * Magnesium 2.2 * UA: Slightly cloudy with 2+ glucose, 1+ ketones, 3+ occult blood, positive nitrate, 1+ leukocyte esterase, 10-20 RBC, 20-30 WBC, 5-10 squamous epithelial cells, few amorphous sediment, many bacteria * Blood cultures ordered * Started on 1 g Rocephin. 03/23/2021 * Hgb trend since admission: 9.7-->9.3-->8.6-->7.4-->8.8 * Patient remains pale * 1 unit PRBC ordered overnight but patient refused transfusion * Per overnight nurse patient reports she is ready to and does not want procedure * Potassium down to 4.3; BUN down from 57 to 45 * Labs otherwise stable * Awaiting blood and urine cultures - >100CFUs of gram negative rods thus far * Procalcitonin pending * Occult stool positive * Urine sodium 78, Urine creatinine 59.7. * Iron panel: Iron 60, TIBC 255, percent saturation 24, transferrin 204 * Dr. Adams, general surgeon, following * Increase sliding scale insulin to medium * Clear liquid diet for now * Continue Rocephin * Continue current treatment plan 03/24/2021: * Hgb trend since admission: 9.7-->9.3-->8.6-->7.4-->8.8-->8.3-->7.9-->7.3 * Patient agreed to blood transfusion today * Patient reports she feels ok. Is scared for blood transfusion * One unit PRBCs ordered * Procalcitonin 0.09 * Gram negative rods on urine cultures so far * Blood cultures negative * BUN down to 34, Creatinine 1.54, GFR 33 * Blood sugars low to mid 100's * Re-check H/H tonight * Continue current treatment plan - Plan Plan:: GI bleed Anemia Generalized weakness assisted resident * IVP Protonix BID * General surgery consultation - Dr. Adams contacted in ED * Trend Hgb * Transfuse 1 unit now * Telemetry * Hold ASA and Plavix for now * PT/OT consultation * CM/SW consultation * Advance diet * Recheck H/H tonight UTI (urinary tract infection) Urinary retention Leukocytosis * Urine culture - gram negative rods * Continue Rocephin 1gm daily * Blood cultures X2 - negative so far * Daily labs including CRP * Monitor for fever Hyperkalemia, Resolved CKD (chronic kidney disease) stage 4, GFR 15-29 ml/min * Telemetry * Hold spironolactone * Urine sodium/creatine WNL CHF (congestive heart failure), NYHA class II Afib HTN (hypertension) * No acute concerns * Hold ASA and Plavix as above * Telemetry * No acute concerns * Continue home HTN meds Chronic back pain * Heating pad PRN * Pain medications PRN * No acute concerns Chronic constipation * Continue home meds * Monitor BMs * No acute concerns DM2 (diabetes mellitus, type 2) Hyperglycemia due to type 2 diabetes mellitus * Blood glucose checks QID AC and Bedtime * Medium dose SS insulin * A1C 7.0 on 01/04/2021 * Consistent carb diet Chronic respiratory failure with hypoxia, on home oxygen therapy Recurrent pneumonia Dysphagia * No acute concerns * O2 with goal saturations >92% * RT/RN to adjust as needed * Home scheduled Duonebs * Monitor swallowing - Per daughter patient was on thickened liquids awhile ago but has been regular/thin most recently. History of TIA (transient ischemic attack) History of CVA (cerebrovascular accident) Vascular dementia * No acute concerns * Let me sleep protocol Depression * No acute concerns Code Status: DNR/DNI (confirmed with patient and daughter on 03/21/2021) PCP: Dr. Winchester VTE prophylaxis: SCDs and MCKAY sinclair. Pharmacological prophylaxis contraindicated due to GI bleed. Social: Patient resides at [facility] Disposition: Patient admitted to medical surgical floor for management of her acute GI bleed and hyperkalemia. Found to have UTI as well. Likely length of stay 3 to 4 days.
[2021-03-23] MEDS: Pantoprazole 40 MG Vial IV SCH ×2 (08:27→20:02)
[2021-03-23] MEDS: Metoprolol Succinate 50 MG Tab.ER PO SCH (08:29)
[2021-03-23] MEDS: Gabapentin 600 MG Tab PO SCH ×2 (08:29→20:02)
[2021-03-23] MEDS: Furosemide 20 MG Tab PO SCH (08:29)
[2021-03-23] MEDS ORDERED: Sodium Chloride 0.9% 250 ML IV SCH (08:30)
[2021-03-23] MEDS ORDERED: Albuterol/Ipratropium 3.0-0.5 MG/3 ML Neb Soln NEB PRN (09:41)
[2021-03-23] MEDS: cefTRIAXone 1 GM in Sodium Chloride 0.9% 100 ML IV SCH (13:05)
[2021-03-24] MEDS: Insulin Lispro 100 UNIT/ML 10 ML Vial SUBCUT SCH ×4 (06:56→22:40)
--- NOTE | 2021-03-24 08:02 | PCM.PN ---
- General Info Date of Service: 03/24/21 Admission Dx/Problem (Free Text): GI Bleed Functional Status: Reports: Pain Controlled, Tolerating Diet, Ambulating (minimal at baseline), Urinating. Denies: New Symptoms - Review of Systems General: Reports: Weakness, Fatigue, Malaise. Denies: Fever, Chills HEENT: Reports: No Symptoms. Denies: Headaches, Sore Throat Pulmonary: Reports: No Symptoms. Denies: Shortness of Breath, Cough, Sputum, Hemoptysis Cardiovascular: Reports: No Symptoms. Denies: Chest Pain, Palpitations, Dyspnea on Exertion, Edema Gastrointestinal: Reports: No Symptoms. Denies: Abdominal Pain, Constipation, Diarrhea, Nausea, Vomiting Genitourinary: Reports: No Symptoms. Denies: Pain Musculoskeletal: Reports: No Symptoms Skin: Reports: No Symptoms. Denies: Cyanosis Neurological: Reports: No Symptoms, Pre-Existing Deficit, Difficulty Walking, Gait Disturbance. Denies: Confusion Psychiatric: Reports: No Symptoms - Patient Data Vitals - Most Recent: Last Vital Signs Temp 98.4 F 03/24/21 06:08 Pulse 80 03/24/21 06:08 Resp 14 03/24/21 06:08 BP 97/35 L 03/24/21 06:08 Pulse Ox 96 03/24/21 06:19 Weight - Most Recent: 157 lb 11.2 oz I&O - Last 24 Hours: Intake & Output 03/23/21 03/24/21 03/24/21 22:59 06:59 14:59 Intake Total 500 240 Output Total 250 300 Balance 250 -60 Lab Results Last 24 Hours: Laboratory Results - last 24 hr 03/21/21 03/23/21 03/23/21 Range/Units 09:08 10:39 17:25 WBC (3.98-10.04) K/mm3 RBC (3.98-5.22) M/mm3 Hgb (11.2-15.7) gm/dl Hct (34.1-44.9) % MCV (79.4-94.8) fl MCH (25.6-32.2) pg MCHC (32.2-35.5) g/dl RDW Std Deviation (36.4-46.3) fL Plt Count (182-369) K/mm3 MPV (9.4-12.3) fl Neut % (Auto) (34.0-71.1) % Lymph % (Auto) (19.3-51.7) % [place] % (Auto) (4.7-12.5) % Eos % (Auto) (0.7-5.8) Baso % (Auto) (0.1-1.2) % Neut # (Auto) (1.56-6.13) K/mm3 Lymph # (Auto) (1.18-3.74) K/mm3 [place] # (Auto) (0.24-0.36) K/mm3 Eos # (Auto) (0.04-0.36) K/mm3 Baso # (Auto) (0.01-0.08) K/mm3 Manual Slide Review Sodium (136-145) mEq/L Potassium (3.5-5.1) mEq/L Chloride (98-107) mEq/L Carbon Dioxide (21-32) mEq/L Anion Gap (5-15) BUN (7-18) mg/dL Creatinine (0.55-1.02) mg/dL Est Cr Clr Drug Dosing mL/min Estimated GFR (MDRD) (>60) mL/min BUN/Creatinine Ratio (14-18) Glucose (83-115) mg/dL POC Glucose 195 H 138 H (70-99) mg/dL Calcium (8.5-10.1) mg/dL Magnesium (1.8-2.4) mg/dl Blood Type O NEGATIVE Gel Antibody Screen Negative Crossmatch See Detail 03/23/21 03/24/21 03/24/21 Range/Units 20:04 05:56 05:56 WBC 7.69 (3.98-10.04) K/mm3 RBC 2.91 L (3.98-5.22) M/mm3 Hgb 10.1 L D 8.9 L (11.2-15.7) gm/dl Hct 32.7 L 28.1 L (34.1-44.9) % MCV 96.6 H (79.4-94.8) fl MCH 30.6 (25.6-32.2) pg MCHC 31.7 L (32.2-35.5) g/dl RDW Std Deviation 50.3 H (36.4-46.3) fL Plt Count 193 (182-369) K/mm3 MPV 10.2 (9.4-12.3) fl Neut % (Auto) 68.4 (34.0-71.1) % Lymph % (Auto) 20.4 (19.3-51.7) % [place] % (Auto) 6.8 (4.7-12.5) % Eos % (Auto) 3.6 (0.7-5.8) Baso % (Auto) 0.3 (0.1-1.2) % Neut # (Auto) 5.26 (1.56-6.13) K/mm3 Lymph # (Auto) 1.57 (1.18-3.74) K/mm3 [place] # (Auto) 0.52 H (0.24-0.36) K/mm3 Eos # (Auto) 0.28 (0.04-0.36) K/mm3 Baso # (Auto) 0.02 (0.01-0.08) K/mm3 Manual Slide Review Not Reportable Sodium 142 (136-145) mEq/L Potassium 4.1 (3.5-5.1) mEq/L Chloride 108 H (98-107) mEq/L Carbon Dioxide 25 (21-32) mEq/L Anion Gap 13.1 (5-15) BUN 29 H (7-18) mg/dL Creatinine 1.4 H (0.55-1.02) mg/dL Est Cr Clr Drug Dosing 19.57 mL/min Estimated GFR (MDRD) 35 (>60) mL/min BUN/Creatinine Ratio 20.7 H (14-18) Glucose 194 H (83-115) mg/dL POC Glucose (70-99) mg/dL Calcium 8.3 L (8.5-10.1) mg/dL Magnesium 2.1 (1.8-2.4) mg/dl Blood Type Gel Antibody Screen Crossmatch Octavio Results Last 24 Hours: Microbiology 03/21/21 14:12 Aerobic Blood Culture - Preliminary Blood - Venous - Lab Draw NO GROWTH AFTER 2 DAYS Anaerobic Blood Culture - Preliminary NO GROWTH AFTER 2 DAYS 03/21/21 14:05 Aerobic Blood Culture - Preliminary Blood - Venous NO GROWTH AFTER 2 DAYS Anaerobic Blood Culture - Preliminary NO GROWTH AFTER 2 DAYS 03/21/21 09:24 Urine Culture - Final Urine, Clean Catch Enterobacter Aerogenes Med Orders - Current: Current Medications Acetaminophen (Acetaminophen 325 Mg Tab) 650 mg PO Q4H PRN PRN Reason: Pain (Mild 1-3)/fever Albuterol/Ipratropium (Albuterol/Ipratropium 3.0-0.5 Mg/3 Ml Neb Soln) 3 ml NEB QID PRN PRN Reason: FOR SOB Furosemide (Furosemide 20 Mg Tab) 20 mg PO DAILY [facility] Last Admin: 03/23/21 08:29 Dose: 20 mg Documented by: Gabapentin (Gabapentin 600 Mg Tab) 600 mg PO BID [facility] Last Admin: 03/23/21 20:02 Dose: 600 mg Documented by: Ceftriaxone Sodium 1 gm/ (Sodium Chloride) 100 mls @ 200 mls/hr IV Q24H [facility] Last Admin: 03/23/21 13:05 Dose: 200 mls/hr Documented by: Insulin Human Lispro (Insulin Lispro 100 Unit/Ml) 0 unit SUBCUT QIDACANDBED [facility]; Protocol Last Admin: 03/24/21 06:56 Dose: 2 unit Documented by: Metoprolol Succinate (Metoprolol Succinate 50 Mg Tab.Er) 50 mg PO DAILY [facility] Last Admin: 03/23/21 08:29 Dose: Not Given Documented by: Ondansetron HCl (Ondansetron 4 Mg/2 Ml Sdv) 4 mg IV Q6H PRN PRN Reason: Nausea/Vomiting Pantoprazole Sodium (Pantoprazole 40 Mg Vial) 40 mg IV Q12HR [facility] Last Admin: 03/23/21 20:02 Dose: 40 mg Documented by: Polyethylene Glycol (Polyethylene Glycol 3350 Powder 17 Gm Packet) 17 gm PO ASDIRECTED PRN PRN Reason: Constipation Discontinued Medications Albuterol (Albuterol 0.083% 2.5 Mg/3 Ml Neb Soln) 2.5 mg NEB ONETIME ONE Stop: 03/21/21 12:42 Last Admin: 03/21/21 15:06 Dose: Not Given Documented by: Albuterol/Ipratropium (Albuterol/Ipratropium 3.0-0.5 Mg/3 Ml Neb Soln) 3 ml NEB QIDRT [facility] Last Admin: 03/23/21 06:31 Dose: Not Given Documented by: Docusate Sodium (Docusate Sodium 100 Mg Cap) 100 mg PO BID [facility] Last Admin: 03/22/21 08:27 Dose: Not Given Documented by: Furosemide (Furosemide 40 Mg Tab) 20 mg PO DAILY [facility] Last Admin: 03/22/21 08:26 Dose: Not Given Documented by: Gabapentin (Gabapentin 300 Mg Cap) 600 mg PO BID [facility] Last Admin: 03/22/21 08:26 Dose: Not Given Documented by: Dextrose/Lactated Ringer's (Dextrose 5%-Lactated Ringers) 1,000 mls @ 75 mls/hr IV ASDIRECTED [facility] Stop: 03/22/21 01:49 Dextrose/Sodium Chloride (Dextrose 5%-Normal Saline) 1,000 mls @ 75 mls/hr IV ASDIRECTED [facility] Stop: 03/22/21 04:04 Last Admin: 03/21/21 16:08 Dose: 75 mls/hr Documented by: Sodium Chloride (Normal Saline) 250 mls @ 50 mls/hr IV ASDIRECTED [facility] Last Admin: 03/23/21 09:15 Dose: 50 mls/hr Documented by: Insulin Human Regular (Insulin Regular, Human 100 Units/Ml 3 Ml Vial) 5 unit SUBCUT ONETIME ONE Stop: 03/21/21 13:01 Last Admin: 03/21/21 14:09 Dose: 5 unit Documented by: Ondansetron HCl (Ondansetron 4 Mg/2 Ml Sdv) 4 mg IVPUSH ONETIME ONE Stop: 03/21/21 10:57 Last Admin: 03/21/21 11:03 Dose: 4 mg Documented by: Pantoprazole Sodium (Pantoprazole 40 Mg Vial) 40 mg IVPUSH ONETIME ONE Stop: 03/21/21 10:57 Last Admin: 03/21/21 11:03 Dose: 40 mg Documented by: - Exam Quality Assessment: Supplemental Oxygen (2L), DVT Prophylaxis. No: Urine Catheter General: Alert, Oriented, Cooperative, No Acute Distress HEENT: Pupils Equal, Pupils Reactive, Mucous Membr. Moist/[place] Neck: Supple, Trachea Midline Lungs: Clear to Auscultation, Normal Respiratory Effort Cardiovascular: Regular Rate, Irregular Rhythm GI/Abdominal Exam: Normal Bowel Sounds, Soft, Non-Tender, No Distention (Female) Exam: Deferred Back Exam: Normal Inspection, Full Range of Motion Extremities: Normal Inspection, Normal Range of Motion, Non-Tender, No Pedal Edema, Normal Capillary Refill Skin: Warm, Dry, Intact Neurological: No New Focal Deficit Psy/Mental Status: Alert, Normal Affect, Normal Mood - Patient Data Lab Results Last 24 hrs: Laboratory Results - last 24 hr 03/21/21 03/23/21 03/23/21 Range/Units 09:08 10:39 17:25 WBC (3.98-10.04) K/mm3 RBC (3.98-5.22) M/mm3 Hgb (11.2-15.7) gm/dl Hct (34.1-44.9) % MCV (79.4-94.8) fl MCH (25.6-32.2) pg MCHC (32.2-35.5) g/dl RDW Std Deviation (36.4-46.3) fL Plt Count (182-369) K/mm3 MPV (9.4-12.3) fl Neut % (Auto) (34.0-71.1) % Lymph % (Auto) (19.3-51.7) % Lanier % (Auto) (4.7-12.5) % Eos % (Auto) (0.7-5.8) Baso % (Auto) (0.1-1.2) % Neut # (Auto) (1.56-6.13) K/mm3 Lymph # (Auto) (1.18-3.74) K/mm3 [place] # (Auto) (0.24-0.36) K/mm3 Eos # (Auto) (0.04-0.36) K/mm3 Baso # (Auto) (0.01-0.08) K/mm3 Manual Slide Review Sodium (136-145) mEq/L Potassium (3.5-5.1) mEq/L Chloride (98-107) mEq/L Carbon Dioxide (21-32) mEq/L Anion Gap (5-15) BUN (7-18) mg/dL Creatinine (0.55-1.02) mg/dL Est Cr Clr Drug Dosing mL/min Estimated GFR (MDRD) (>60) mL/min BUN/Creatinine Ratio (14-18) Glucose (83-115) mg/dL POC Glucose 195 H 138 H (70-99) mg/dL Calcium (8.5-10.1) mg/dL Magnesium (1.8-2.4) mg/dl Blood Type O NEGATIVE Gel Antibody Screen Negative Crossmatch See Detail 03/23/21 03/24/21 03/24/21 Range/Units 20:04 05:56 05:56 WBC 7.69 (3.98-10.04) K/mm3 RBC 2.91 L (3.98-5.22) M/mm3 Hgb 10.1 L D 8.9 L (11.2-15.7) gm/dl Hct 32.7 L 28.1 L (34.1-44.9) % MCV 96.6 H (79.4-94.8) fl MCH 30.6 (25.6-32.2) pg MCHC 31.7 L (32.2-35.5) g/dl RDW Std Deviation 50.3 H (36.4-46.3) fL Plt Count 193 (182-369) K/mm3 MPV 10.2 (9.4-12.3) fl Neut % (Auto) 68.4 (34.0-71.1) % Lymph % (Auto) 20.4 (19.3-51.7) % Lanier % (Auto) 6.8 (4.7-12.5) % Eos % (Auto) 3.6 (0.7-5.8) Baso % (Auto) 0.3 (0.1-1.2) % Neut # (Auto) 5.26 (1.56-6.13) K/mm3 Lymph # (Auto) 1.57 (1.18-3.74) K/mm3 [place] # (Auto) 0.52 H (0.24-0.36) K/mm3 Eos # (Auto) 0.28 (0.04-0.36) K/mm3 Baso # (Auto) 0.02 (0.01-0.08) K/mm3 Manual Slide Review Not Reportable Sodium 142 (136-145) mEq/L Potassium 4.1 (3.5-5.1) mEq/L Chloride 108 H (98-107) mEq/L Carbon Dioxide 25 (21-32) mEq/L Anion Gap 13.1 (5-15) BUN 29 H (7-18) mg/dL Creatinine 1.4 H (0.55-1.02) mg/dL Est Cr Clr Drug Dosing 19.57 mL/min Estimated GFR (MDRD) 35 (>60) mL/min BUN/Creatinine Ratio 20.7 H (14-18) Glucose 194 H (83-115) mg/dL POC Glucose (70-99) mg/dL Calcium 8.3 L (8.5-10.1) mg/dL Magnesium 2.1 (1.8-2.4) mg/dl Blood Type Gel Antibody Screen Crossmatch Result Diagrams: 03/24/21 05:56 03/24/21 05:56 Octavio Results Last 24 hrs: Microbiology 03/21/21 14:12 Aerobic Blood Culture - Preliminary Blood - Venous - Lab Draw NO GROWTH AFTER 2 DAYS Anaerobic Blood Culture - Preliminary NO GROWTH AFTER 2 DAYS 03/21/21 14:05 Aerobic Blood Culture - Preliminary Blood - Venous NO GROWTH AFTER 2 DAYS Anaerobic Blood Culture - Preliminary NO GROWTH AFTER 2 DAYS 03/21/21 09:24 Urine Culture - Final Urine, Clean Catch Enterobacter Aerogenes Sepsis Event Note - Evaluation Sepsis Screening Result: No Definite Risk - Focused Exam Vital Signs: Vital Signs Temp Pulse Resp BP Pulse Ox Pulse Ox 03/24/21 06:19 96 03/24/21 06:08 98.4 F 80 14 97/35 L 92 L 03/24/21 01:00 95 03/24/21 00:47 97.9 F 72 14 127/96 H 97 - Problem List & Annotations (1) GI bleed SNOMED Code(s): 25014533 Code(s): K92.2 - GASTROINTESTINAL HEMORRHAGE, UNSPECIFIED Status: Acute Priority: High Current Visit: Yes Qualifiers: GI bleed type/associated pathology: melena Qualified Code(s): K92.1 - Melena (2) CHF (congestive heart failure), NYHA class II SNOMED Code(s): 324873327, 896536388 Code(s): I50.9 - HEART FAILURE, UNSPECIFIED Status: Chronic Priority: Medium Current Visit: No Qualifiers: Congestive heart failure type: combined Congestive heart failure chronicity: acute on chronic Qualified Code(s): I50.43 - Acute on chronic combined systolic (congestive) and diastolic (congestive) heart failure (3) Leukocytosis SNOMED Code(s): 381662497, 849166281 Code(s): D72.829 - ELEVATED WHITE BLOOD CELL COUNT, UNSPECIFIED Status: Acute Priority: High Current Visit: Yes Qualifiers: Leukocytosis type: unspecified Qualified Code(s): D72.829 - Elevated white blood cell count, unspecified (4) Afib SNOMED Code(s): 31379135 Code(s): I48.91 - UNSPECIFIED ATRIAL FIBRILLATION Status: Chronic Priority: Medium Current Visit: No Qualifiers: Atrial fibrillation type: paroxysmal Qualified Code(s): I48.0 - Paroxysmal atrial fibrillation (5) Anemia SNOMED Code(s): 161164564 Code(s): D64.9 - ANEMIA, UNSPECIFIED Status: Acute Priority: Medium Current Visit: Yes Qualifiers: Anemia type: due to chronic kidney disease Chronic kidney disease stage: s tage 4 (severe) Qualified Code(s): N18.4 - Chronic kidney disease, stage 4 (severe); D63.1 - Anemia in chronic kidney disease (6) Chronic back pain SNOMED Code(s): 345275201 Code(s): M54.9 - DORSALGIA, UNSPECIFIED; G89.29 - OTHER CHRONIC PAIN Status: Chronic Priority: Low Current Visit: No Qualifiers: Back pain location: back pain in unspecified location Back pain laterality: unspecified Qualified Code(s): M54.9 - Dorsalgia, unspecified; G89.29 - Other chronic pain (7) Chronic constipation SNOMED Code(s): 619238559 Code(s): K59.09 - OTHER CONSTIPATION Status: Chronic Priority: Low Current Visit: No (8) DM2 (diabetes mellitus, type 2) SNOMED Code(s): 32603201 Code(s): E11.9 - TYPE 2 DIABETES MELLITUS WITHOUT COMPLICATIONS Status: Chronic Priority: Medium Current Visit: Yes Qualifiers: Diabetes mellitus remote computer terminal operator insulin use: unspecified remote computer terminal operator insulin use status Diabetes mellitus complication status: with other specified complication Qualified Code(s): E11.69 - Type 2 diabetes mellitus with other specified complication (9) Depression SNOMED Code(s): 26358668 Code(s): F32.9 - MAJOR DEPRESSIVE DISORDER, SINGLE EPISODE, UNSPECIFIED Status: Chronic Priority: Low Current Visit: No Qualifiers: Depression Type: other depression Qualified Code(s): F32.89 - Other specified depressive episodes (10) HTN (hypertension) SNOMED Code(s): 66604456 Code(s): I10 - ESSENTIAL (PRIMARY) HYPERTENSION Status: Chronic Priority: Medium Current Visit: No Qualifiers: Hypertension type: unspecified Qualified Code(s): I10 - Essential (primary) hypertension (11) History of TIA (transient ischemic attack) SNOMED Code(s): 532510673 Code(s): Z86.73 - PRSNL HX OF TIA (TIA), AND CEREB INFRC W/O RESID DEFICITS Status: Chronic Priority: Low Current Visit: No (12) longterm resident SNOMED Code(s): 250194115 Code(s): Z59.3 - PROBLEMS RELATED TO LIVING IN RESIDENTIAL INSTITUTION Status: Chronic Priority: Low Current Visit: No (13) Generalized weakness SNOMED Code(s): 93227286 Code(s): R53.1 - WEAKNESS Status: Acute Priority: High Current Visit: Yes (14) Hyperkalemia SNOMED Code(s): 26556594 Code(s): E87.5 - HYPERKALEMIA Status: Acute Priority: High Current Visit: Yes (15) CKD (chronic kidney disease) stage 4, GFR 15-29 ml/min SNOMED Code(s): 351234328 Code(s): N18.4 - CHRONIC KIDNEY DISEASE, STAGE 4 (SEVERE) Status: Chronic Priority: Medium Current Visit: Yes (16) Dysphagia SNOMED Code(s): 93102647, 784616794 Code(s): R13.10 - DYSPHAGIA, UNSPECIFIED Status: Chronic Priority: Low Current Visit: No Qualifiers: Dysphagia type: unspecified Qualified Code(s): R13.10 - Dysphagia, unspecified (17) Recurrent pneumonia SNOMED Code(s): 554979829 Code(s): J18.9 - PNEUMONIA, UNSPECIFIED ORGANISM Status: Chronic Priority: Low Current Visit: No (18) Chronic respiratory failure with hypoxia, on home oxygen therapy SNOMED Code(s): 782253270 Code(s): J96.11 - CHRONIC RESPIRATORY FAILURE WITH HYPOXIA; Z99.81 - DEPENDENCE ON SUPPLEMENTAL OXYGEN Status: Chronic Priority: Medium Current Visit: Yes (19) History of CVA (cerebrovascular accident) SNOMED Code(s): 909843825 Code(s): Z86.73 - PRSNL HX OF TIA (TIA), AND CEREB INFRC W/O RESID DEFICITS Status: Chronic Priority: Medium Current Visit: No (20) Vascular dementia SNOMED Code(s): 710579925 Code(s): F01.50 - VASCULAR DEMENTIA WITHOUT BEHAVIORAL DISTURBANCE Status: Chronic Priority: Medium Current Visit: No Qualifiers: Dementia behavioral disturbance: without behavioral disturbance Qualified Code(s): F01.50 - Vascular dementia without behavioral disturbance (21) Urinary retention SNOMED Code(s): 835798873 Code(s): R33.9 - RETENTION OF URINE, UNSPECIFIED Status: Chronic Priority: Low Current Visit: No (22) UTI (urinary tract infection) SNOMED Code(s): 56648002 Code(s): N39.0 - URINARY TRACT INFECTION, SITE NOT SPECIFIED Status: Acute Priority: High Current Visit: Yes Qualifiers: Urinary tract infection type: acute cystitis Hematuria presence: with hematuria Qualified Code(s): N30.01 - Acute cystitis with hematuria (23) Hyperglycemia due to type 2 diabetes mellitus SNOMED Code(s): 043648851518796, 131647447922891 Code(s): E11.65 - TYPE 2 DIABETES MELLITUS WITH HYPERGLYCEMIA Status: Acute Priority: High Current Visit: Yes Qualifiers: Diabetes mellitus longterm insulin use: with remote computer terminal operator use Qualified Code(s): E11.65 - Type 2 diabetes mellitus with hyperglycemia; Z79.4 - termite treater helper (current) use of insulin - Problem List Review Problem List Initiated/Reviewed/Updated: Yes - My Orders Last 24 Hours: My Active Orders 03/23/21 07:28 Transfuse Red Blood Cells [COMM] Routine 03/23/21 09:00 Furosemide [Lasix] 20 mg PO DAILY 03/23/21 09:41 Albuterol/Ipratropium [DuoNeb 3.0-0.5 MG/3 ML] 3 ml NEB QID PRN 03/24/21 12:00 HEMOGLOBIN/HEMATOCRIT,HH [HEME] Routine 03/25/21 05:11 BASIC METABOLIC PANEL,BMP [CHEM] AM CBC WITH AUTO DIFF [HEME] AM MAGNESIUM [CHEM] AM - Assessment Assessment:: Assessment - day of admission 03/21/2021 * 89-year-old female presents via [place] ambulance to ED for GI bleed * Patient resides at [facility]. * Noted to have melena and coffee-ground emesis around 7 AM this morning. * Patient is on Plavix and aspirin for prior CVA, TIA, and A. fib. * Also carries history of: heart failure, HTN, anemia, recurrent pneumonia, hypoxemia requiring home O2, chronic constipation, dysphagia, CKD stage IV, urinary retention, chronic back pain, neuralgia, vascular dementia, depression, type II DM. * Twelve-lead EKG shows sinus rhythm with Q waves in III and aVF. Low voltage in precordial leads. No acute change from 12/2020 * Labs obtained in ED: * WBC 14.03 * Hemoglobin 9.7, hematocrit 31.4 * Platelet 246,000 * Neutrophils elevated at 85.4% * INR 1.02 * APTT 21.0 * Sodium 137 * Potassium 5.6 * Carbon dioxide 25 * Anion gap 13.6 * BUN 57, creatinine 1.7, GFR 28 * Glucose 306 * Calcium 8.9 * Total bilirubin 0.6 * AST 11, ALT 20, alkaline phosphatase 91 * Troponin less than 0.017 * Albumin 3.2 * SARS Covid 2 RNA negative * Blood type O negative; gel antibody screen negative * Given 4 mg IV push of Zofran and 40 mg IV push Protonix in ED * Noted to have episode of coffee-ground emesis with blood streaks, approximately 10 mL in ED. * Admitted to medical surgical floor for management of GI bleed and hyperkalemia. * Labs on floor: * CRP less than 0.2 * Magnesium 2.2 * UA: Slightly cloudy with 2+ glucose, 1+ ketones, 3+ occult blood, positive nitrate, 1+ leukocyte esterase, 10-20 RBC, 20-30 WBC, 5-10 squamous epithelial cells, few amorphous sediment, many bacteria * Blood cultures ordered * Started on 1 g Rocephin. 03/22/2021 * Hgb trend since admission: 9.7-->9.3-->8.6-->7.4-->8.8 * Patient remains pale * 1 unit PRBC ordered overnight but patient refused transfusion * Per overnight nurse patient reports she is ready to and does not want procedure * Potassium down to 4.3; BUN down from 57 to 45 * Labs otherwise stable * Awaiting blood and urine cultures - >100CFUs of gram negative rods thus far * Procalcitonin pending * Occult stool positive * Urine sodium 78, Urine creatinine 59.7. * Iron panel: Iron 60, TIBC 255, percent saturation 24, transferrin 204 * Dr. Adams, general surgeon, following * Increase sliding scale insulin to medium * Clear liquid diet for now * Continue Rocephin * Continue current treatment plan 03/23/2021: * Hgb trend since admission: 9.7-->9.3-->8.6-->7.4-->8.8-->8.3-->7.9-->7.3 * Patient agreed to blood transfusion today * Patient reports she feels ok. Is scared for blood transfusion * One unit PRBCs ordered * Procalcitonin 0.09 * Gram negative rods on urine cultures so far * Blood cultures negative * BUN down to 34, Creatinine 1.54, GFR 33 * Blood sugars low to mid 100's * Re-check H/H tonight * Continue current treatment plan 03/24/2021 * Hgb trend since admission: 9.7-->9.3-->8.6-->7.4-->8.8-->8.3-->7.9-->7.3-->10.1(s/p 1 unit)-->8.9 * Higher than expected response to 1 unit PRBC. 8.9gm seems more reasonable. * Re-check H/H today at noon * Enterobacter Aerogenes growing in urine. * Labs grossly stable * BUN 29, creatinine 1.4, GFR 35 * Glucose 138-195 * Continue current treatment plan * Likely discharge tomorrow pending continued stability. - Plan Plan:: GI bleed Anemia Generalized weakness longterm resident * IVP Protonix BID * General surgery consultation - Dr. Adams contacted in ED * Trend Hgb * Transfuse 1 unit now * Telemetry * Hold ASA and Plavix for now * PT/OT consultation * CM/SW consultation * Advance diet * Recheck H/H tonight UTI (urinary tract infection) Urinary retention Leukocytosis * Urine culture - gram negative rods * Continue Rocephin 1gm daily * Blood cultures X2 - negative so far * Daily labs including CRP * Monitor for fever Hyperkalemia, Resolved CKD (chronic kidney disease) stage 4, GFR 15-29 ml/min * Telemetry * Hold spironolactone * Urine sodium/creatine WNL CHF (congestive heart failure), NYHA class II Afib HTN (hypertension) * No acute concerns * Hold ASA and Plavix as above * Telemetry * No acute concerns * Continue home HTN meds Chronic back pain * Heating pad PRN * Pain medications PRN * No acute concerns Chronic constipation * Continue home meds * Monitor BMs * No acute concerns DM2 (diabetes mellitus, type 2) Hyperglycemia due to type 2 diabetes mellitus * Blood glucose checks QID AC and Bedtime * Medium dose SS insulin * A1C 7.0 on 01/04/2021 * Consistent carb diet Chronic respiratory failure with hypoxia, on home oxygen therapy Recurrent pneumonia Dysphagia * No acute concerns * O2 with goal saturations >92% * RT/RN to adjust as needed * Home scheduled Duonebs * Monitor swallowing - Per daughter patient was on thickened liquids awhile ago but has been regular/thin most recently. History of TIA (transient ischemic attack) History of CVA (cerebrovascular accident) Vascular dementia * No acute concerns * Let me sleep protocol Depression * No acute concerns Code Status: DNR/DNI (confirmed with patient and daughter on 03/21/2021) PCP: Dr. Winchester VTE prophylaxis: SCDs and MCKAY sinclair. Pharmacological prophylaxis contraindicated due to GI bleed. Social: Patient resides at [facility] Disposition: Patient admitted to medical surgical floor for management of her acute GI bleed and hyperkalemia. Found to have UTI as well. LOS >96hrs due to need for blood transfusion and follow-up hgb trend.
[2021-03-24] MEDS: Furosemide 20 MG Tab PO SCH (10:17)
[2021-03-24] MEDS: Gabapentin 600 MG Tab PO SCH ×2 (10:18→21:58)
[2021-03-24] MEDS: Pantoprazole 40 MG Vial IV SCH ×2 (10:19→21:58)
[2021-03-24] MEDS: Metoprolol Succinate 50 MG Tab.ER PO SCH (10:19)
[2021-03-24] MEDS: cefTRIAXone 1 GM in Sodium Chloride 0.9% 100 ML IV SCH (15:19)
[2021-03-25] MEDS: Metoprolol Succinate 50 MG Tab.ER PO SCH (08:36)
[2021-03-25] MEDS: Gabapentin 600 MG Tab PO SCH (08:37)
[2021-03-25] MEDS: Pantoprazole 40 MG Vial IV SCH (08:37)
[2021-03-25] MEDS: Insulin Lispro 100 UNIT/ML 10 ML Vial SUBCUT SCH ×2 (08:37→11:25)
[2021-03-25] MEDS: Furosemide 20 MG Tab PO SCH (08:37)
--- NOTE | 2021-03-25 08:47 | PCM.DCSUM1 ---
Discharge Summary - Hospital Course HPI Initial Comments: This is an 89-year-old female who presents to our ED on 03/21/2021 with concern over GI bleed. Patient resides at [facility] and reportedly had melena and coffee-ground emesis starting at around 7 AM today. Patient presented via [facility]. Patient does have a history of CVA, TIA, and A. fib and is on Plavix and a baby aspirin for this. No history of any prior GI bleeds. Patient has baseline hypoxemia requiring oxygen and is on 2 L in the ED. In the emergency room temp was 36.8 Celsius. Pulse 98. Respirations 16. Blood pressure 141/62. Pulse ox 98%. Twelve-lead EKG is obtained showing a sinus rhythm with Q waves in III and aVF. There is low voltage noted in the precordial leads. Compared with prior twelve-lead EKG from December of this year with no acute changes noted. Labs are obtained showing an elevated WBC at 14.03. Hemoglobin is 9.7. Platelet 246,000. Neutrophils are elevated 85.4%. INR is 1.02. aPTT is 21.0. Sodium is 137. Potassium is high at 5.6. Chloride 104. Carbon oxide 25. Anion gap 13.6. BUN is quite high at 57. Creatinine 1.7. GFR 28. Glucose is 306. Calcium 8.9. Total bilirubin 0.6. AST is 11, ALT 20, alkaline phosphatase 91. Troponin less than 0.017. Protein 6.7. Albumin is low at 3.2. SARS Covid 2 RNA is negative. Blood type is O- and antibody screen is negative. While in the ED she is noted to have an episode of emesis with approximately 10 mL of coffee-ground emesis with streaks of blood. She is given Protonix and Zofran via IV. She carries a history of A. fib, heart failure, hypertension, anemia, recurrent pneumonia, hypoxemia requiring O2, chronic constipation, dysphagia, chronic renal insufficiency, urinary retention, chronic back pain, TIA, cerebral infarct, neuralgia, vascular dementia, depression, type II DM. She is not a smoker. Her PCP is Dr. Kothari. She is subsequently admitted to the medical floor for management of her GI bleed. She is a DNR/DNI. Her daughter is present at bedside. Diagnosis: Stroke: No - Discharge Data Discharge Date: 03/25/21 (Admit date: 03/21/2021) Discharge Disposition: DC/Tfer to SNF 03 Condition: Good - Referral to Home Health Primary Care Physician: Dudley Winchester MD - Discharge Diagnosis/Problem(s) (1) GI bleed SNOMED Code(s): 42156019 ICD Code: K92.2 - GASTROINTESTINAL HEMORRHAGE, UNSPECIFIED Status: Acute Priority: High Current Visit: Yes Qualifiers: GI bleed type/associated pathology: melena Qualified Code(s): K92.1 - Melena (2) CHF (congestive heart failure), NYHA class II SNOMED Code(s): 788818327, 098452169 ICD Code: I50.9 - HEART FAILURE, UNSPECIFIED Status: Chronic Priority: Medium Current Visit: No Qualifiers: Congestive heart failure type: combined Congestive heart failure chronicity: acute on chronic Qualified Code(s): I50.43 - Acute on chronic combined systolic (congestive) and diastolic (congestive) heart failure (3) Leukocytosis SNOMED Code(s): 710947730, 059547042 ICD Code: D72.829 - ELEVATED WHITE BLOOD CELL COUNT, UNSPECIFIED Status: Acute Priority: High Current Visit: Yes Qualifiers: Leukocytosis type: unspecified Qualified Code(s): D72.829 - Elevated white blood cell count, unspecified (4) Afib SNOMED Code(s): 32292790 ICD Code: I48.91 - UNSPECIFIED ATRIAL FIBRILLATION Status: Chronic Priority: Medium Current Visit: No Qualifiers: Atrial fibrillation type: paroxysmal Qualified Code(s): I48.0 - Paroxysmal atrial fibrillation (5) Anemia SNOMED Code(s): 206164733 ICD Code: D64.9 - ANEMIA, UNSPECIFIED Status: Acute Priority: Medium Current Visit: Yes Qualifiers: Anemia type: due to chronic 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) Qualified Code(s): N18.4 - Chronic kidney disease, stage 4 (severe); D63.1 - Anemia in chronic kidney disease (6) Chronic back pain SNOMED Code(s): 071166435 ICD Code: M54.9 - DORSALGIA, UNSPECIFIED; G89.29 - OTHER CHRONIC PAIN Status: Chronic Priority: Low Current Visit: No Qualifiers: Back pain location: back pain in unspecified location Back pain laterality: unspecified Qualified Code(s): M54.9 - Dorsalgia, unspecified; G89.29 - Other chronic pain (7) Chronic constipation SNOMED Code(s): 167011164 ICD Code: K59.09 - OTHER CONSTIPATION Status: Chronic Priority: Low Current Visit: No (8) DM2 (diabetes mellitus, type 2) SNOMED Code(s): 58847463 ICD Code: E11.9 - TYPE 2 DIABETES MELLITUS WITHOUT COMPLICATIONS Status: Chronic Priority: Medium Current Visit: Yes Qualifiers: Diabetes mellitus chcf insulin use: unspecified long term acute care registered nurse insulin use status Diabetes mellitus complication status: with other specified complica tion Qualified Code(s): E11.69 - Type 2 diabetes mellitus with other specified complication (9) Depression SNOMED Code(s): 80323120 ICD Code: F32.9 - MAJOR DEPRESSIVE DISORDER, SINGLE EPISODE, UNSPECIFIED Status: Chronic Priority: Low Current Visit: No Qualifiers: Depression Type: other depression Qualified Code(s): F32.89 - Other specified depressive episodes (10) HTN (hypertension) SNOMED Code(s): 45458946 ICD Code: I10 - ESSENTIAL (PRIMARY) HYPERTENSION Status: Chronic Priority: Medium Current Visit: No Qualifiers: Hypertension type: unspecified Qualified Code(s): I10 - Essential (primary) hypertension (11) History of TIA (transient ischemic attack) SNOMED Code(s): 508577341 ICD Code: Z86.73 - PRSNL HX OF TIA (TIA), AND CEREB INFRC W/O RESID DEFICITS Status: Chronic Priority: Low Current Visit: No (12) penitentiary resident SNOMED Code(s): 659224891 ICD Code: Z59.3 - PROBLEMS RELATED TO LIVING IN RESIDENTIAL INSTITUTION Status: Chronic Priority: Low Current Visit: No (13) Generalized weakness SNOMED Code(s): 56466665 ICD Code: R53.1 - WEAKNESS Status: Acute Priority: High Current Visit: Yes (14) Hyperkalemia SNOMED Code(s): 26408157 ICD Code: E87.5 - HYPERKALEMIA Status: Acute Priority: High Current Visit: Yes (15) CKD (chronic kidney disease) stage 4, GFR 15-29 ml/min SNOMED Code(s): 399417192 ICD Code: N18.4 - CHRONIC KIDNEY DISEASE, STAGE 4 (SEVERE) Status: Chronic Priority: Medium Current Visit: Yes (16) Dysphagia SNOMED Code(s): 88291692, 301578944 ICD Code: R13.10 - DYSPHAGIA, UNSPECIFIED Status: Chronic Priority: Low Current Visit: No Qualifiers: Dysphagia type: unspecified Qualified Code(s): R13.10 - Dysphagia, unspecified (17) Recurrent pneumonia SNOMED Code(s): 199274272 ICD Code: J18.9 - PNEUMONIA, UNSPECIFIED ORGANISM Status: Chronic Priority: Low Current Visit: No (18) Chronic respiratory failure with hypoxia, on home oxygen therapy SNOMED Code(s): 387785112 ICD Code: J96.11 - CHRONIC RESPIRATORY FAILURE WITH HYPOXIA; Z99.81 - DEPENDENCE ON SUPPLEMENTAL OXYGEN Status: Chronic Priority: Medium Current Visit: Yes (19) History of CVA (cerebrovascular accident) SNOMED Code(s): 825621643 ICD Code: Z86.73 - PRSNL HX OF TIA (TIA), AND CEREB INFRC W/O RESID DEFICITS Status: Chronic Priority: Medium Current Visit: No (20) Vascular dementia SNOMED Code(s): 344777739 ICD Code: F01.50 - VASCULAR DEMENTIA WITHOUT BEHAVIORAL DISTURBANCE Status: Chronic Priority: Medium Current Visit: No Qualifiers: Dementia behavioral disturbance: without behavioral disturbance Qualified Code(s): F01.50 - Vascular dementia without behavioral disturbance (21) Urinary retention SNOMED Code(s): 261413934 ICD Code: R33.9 - RETENTION OF URINE, UNSPECIFIED Status: Chronic Priority: Low Current Visit: No (22) UTI (urinary tract infection) SNOMED Code(s): 58835948 ICD Code: N39.0 - URINARY TRACT INFECTION, SITE NOT SPECIFIED Status: Acute Priority: High Current Visit: Yes Qualifiers: Urinary tract infection type: acute cystitis Hematuria presence: with hematuria Qualified Code(s): N30.01 - Acute cystitis with hematuria (23) Hyperglycemia due to type 2 diabetes mellitus SNOMED Code(s): 870279516582143, 993022228828995 ICD Code: E11.65 - TYPE 2 DIABETES MELLITUS WITH HYPERGLYCEMIA Status: Acute Priority: High Current Visit: Yes Qualifiers: Diabetes mellitus long term acute care registered nurse insulin use: with long term acute care registered nurse use Qualified Code(s): E11.65 - Type 2 diabetes mellitus with hyperglycemia; 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 -Patients Plavix and aspirin were held due to GI bleed. PCP to determine if/when patient resumes meds. Consider follow-up with general surgery if symptoms do not resolve -Patient saw Dr. Adams, general surgeon while here. Hospital Course: This is a 89-year-old female who presents to ED on 03/21/2021 via [facility] from [facility] for GI bleed. Per prison notes the noted melena and coffee-ground emesis which began earlier in the day. She is on Plavix and aspirin for prior CVA, TIA, and A. fib. Also carries history of: heart failure, HTN, anemia, recurrent pneumonia, hypoxemia requiring home O2, chronic constipation, dysphagia, CKD stage IV, urinary retention, chronic back pain, neuralgia, vascular dementia, depression, type II DM. In the ED she was noted to have a hemoglobin of 9.7 hematocrit of 31.4. White count was elevated at 14.03. She did have an approximately 10 mL emesis in the ED which was noted to have coffee grounds with streaks of blood. UA was obtained which was suggestive of a UTI and 1 g Rocephin was started. Hemoglobin was trended and Dr. Adams, general surgeon was brought on board. Initially patient refused any types of transfusion or thoughts of endoscopy. After much discussion she did agree to 1 unit. Was given after her hemoglobin was noted to be 7.3. After this hemoglobin increased to 10.1 which was likely falsely elevated. This did respond more appropriately to 8.9 on following recheck. Occult stool was positive and iron panel was noted to be within normal limits. Hgb trend since admission: 9.7-->9.3-->8.6-->7.4-->8.8-->8.3-->7.9-->7.3-->10.1(s/p 1 unit)-->8.9-->10.1-->9.2. She was hyperkalemic on admission with a potassium of 5.6. There were no EKG changes noted. She was given insulin, as her glucose was high already and an albuterol nebulizer with good response. Potassium did come down and stay down after that. Procalcitonin on admission was 0.09. Urine culture grew out greater than 100 colony-forming units of Enterobacter aerogenes susceptible to Rocephin. She completed IV antibiotics while here. As her hemoglobin has remained stable and patient is refusing endoscopy it is felt she can be safely discharged. Repeat CBC is ordered on 03/29/2021 with results to her primary care provider. She should follow-up with her primary care provider next week. Recommend repeat CBC, CMP, and magnesium at that visit. Her aspirin and Plavix have been held. We did discuss risk of stroke due to this. Primary care provider can determine when to reintroduce these meds. Recommend outpatient general surgery consultation should bleeding continue. Anticipate mild continued melanotic stools as patient is only now starting to reintroduce food. She was receiving 40 mg IV push Protonix twice daily and this will be continued as 40 mg daily p.o. Protonix at discharge. Home medications were otherwise continued with the exception of Plavix and aspirin as mentioned prior. She discharged back to [facility] today. Is on her baseline 2 L of oxygen. - Patient Instructions Diet: Diabetic Diet Activity: As Tolerated Driving: Do Not Drive Showering/Bathing: May Shower Notify Provider of: Fever, Increased Pain, Nausea and/or Vomiting Other/Special Instructions: Follow-up with primary care provider next week, sooner if needed. Recheck CBC (blood draw) on 03/29/[address] Winchester. Consider follow-up with outpatient surgery. You saw Dr. Adams, our surgeon here at [facility] while here. Resume home medications as directed. Continue to hold your aspirin and plavix. You can discuss with your primary care provider when to restart this. Should symptoms return or worsen, contact primary care provider or return to the Emergency Department. - Discharge Plan *PRESCRIPTION DRUG MONITORING PROGRAM REVIEWED*: No *COPY OF PRESCRIPTION DRUG MONITORING REPORT IN PATIENT [place]: No Prescriptions/Med Rec: Pantoprazole Sodium [Protonix] 40 mg PO DAILY #30 tablet. Home Medications: Home Meds Gabapentin [Neurontin] 600 mg PO BID 10/20/15 [History] Acetaminophen 500 mg PO BEDTIME 07/12/16 [History] Vitamin E 400 unit PO DAILY 07/12/16 [History] Furosemide [Lasix] 20 mg PO DAILY 04/29/19 [History] Metoprolol Succinate 50 mg PO DAILY 04/29/19 [History] polyethylene glycoL 3350 [MiraLAX] 17 gm PO ASDIRECTED PRN 04/29/19 [History] Albuterol/Ipratropium [DuoNeb 3.0-0.5 MG/3 ML] 3 ml NEB QIDRT #120 neb 05/06/19 [Rx] Spironolactone [Aldactone] 50 mg PO DAILY #30 tablet 05/06/19 [Rx] Insulin Aspart [NovoLOG] 1 dose SUBCUT TID 08/31/20 [History] Acetaminophen [Tylenol] 650 mg PO Q4H PRN #30 tablet 01/12/21 [Rx] Docusate Sodium [Colace] 100 mg PO BID #20 cap 01/12/21 [Rx] Calcium Carbonate [Tums] 200 mg PO Q4HR PRN 03/21/21 [History] Insulin Degludec [Tresiba] 20 unit SQ DAILY 03/21/21 [History] Phenyleph/Mineral Oil/Petrolat [Preparation H Ointment] 0.25 RECTAL ASDIRECTED PRN 03/21/21 [History] Pantoprazole Sodium [Protonix] 40 mg PO DAILY #30 tablet. 03/25/21 [Rx] Oxygen Therapy Mode: Nasal Cannula Oxygen Flow Rate (L/min): 2 Patient Handouts: Heart Failure Action Plan, Sepsis, Self Care, Adult Forms: ED Department Discharge Referrals: Dudley Winchester MD [Primary Care Provider] - 04/01/21 2:30 pm (check in time 2:15 p.m.) - Discharge Summary/Plan Comment DC Time >30 min.: Yes (45 mins ) - General Info Date of Service: 03/25/21 Admission Dx/Problem (Free Text: GI Bleed Functional Status: Reports: Pain Controlled, Tolerating Diet, Ambulating, Urinating. Denies: New Symptoms - Review of Systems General: Reports: Weakness (improved ), Fatigue (improved ). Denies: Fever, Malaise, Chills HEENT: Reports: No Symptoms. Denies: Headaches, Visual Changes Pulmonary: Reports: No Symptoms. Denies: Shortness of Breath, Cough, Sputum, Wheezing Cardiovascular: Reports: No Symptoms. Denies: Chest Pain, Palpitations, Dyspnea on Exertion, Edema Gastrointestinal: Reports: Melena. Denies: Abdominal Pain, Constipation, Diarrhea, Nausea, Vomiting Genitourinary: Reports: No Symptoms. Denies: Pain Musculoskeletal: Reports: No Symptoms Skin: Reports: No Symptoms. Denies: Cyanosis Neurological: Reports: Difficulty Walking, Weakness, Gait Disturbance. Denies: Confusion Psychiatric: Reports: No Symptoms - Patient Data Vitals - Most Recent: Last Vital Signs Temp 98.1 F 03/25/21 07:48 Pulse 68 03/25/21 08:36 Resp 16 03/25/21 07:48 BP 120/90 03/25/21 08:36 Pulse Ox 92 L 03/25/21 07:48 Weight - Most Recent: 151 lb 11.2 oz I&O - Last 24 hours: Intake & Output 03/24/21 03/25/21 03/25/21 22:59 06:59 14:59 Intake Total 1160 400 Output Total 850 550 Balance 310 -150 Lab Results - Last 24 hrs: Laboratory Results - last 24 hr 03/24/21 03/24/21 03/24/21 Range/Units 06:29 11:04 12:03 WBC (3.98-10.04) K/mm3 RBC (3.98-5.22) M/mm3 Hgb 10.1 L (11.2-15.7) gm/dl Hct 32.3 L (34.1-44.9) % MCV (79.4-94.8) fl MCH (25.6-32.2) pg MCHC (32.2-35.5) g/dl RDW Std Deviation (36.4-46.3) fL Plt Count (182-369) K/mm3 MPV (9.4-12.3) fl Neut % (Auto) (34.0-71.1) % Lymph % (Auto) (19.3-51.7) % [place] % (Auto) (4.7-12.5) % Eos % (Auto) (0.7-5.8) Baso % (Auto) (0.1-1.2) % Neut # (Auto) (1.56-6.13) K/mm3 Lymph # (Auto) (1.18-3.74) K/mm3 [place] # (Auto) (0.24-0.36) K/mm3 Eos # (Auto) (0.04-0.36) K/mm3 Baso # (Auto) (0.01-0.08) K/mm3 Sodium (136-145) mEq/L Potassium (3.5-5.1) mEq/L Chloride (98-107) mEq/L Carbon Dioxide (21-32) mEq/L Anion Gap (5-15) BUN (7-18) mg/dL Creatinine (0.55-1.02) mg/dL Est Cr Clr Drug Dosing mL/min Estimated GFR (MDRD) (>60) mL/min BUN/Creatinine Ratio (14-18) Glucose (83-115) mg/dL POC Glucose 184 H 275 H (70-99) mg/dL Calcium (8.5-10.1) mg/dL Magnesium (1.8-2.4) mg/dl 03/24/21 03/24/21 03/25/21 Range/Units 16:22 22:05 04:53 WBC (3.98-10.04) K/mm3 RBC (3.98-5.22) M/mm3 Hgb (11.2-15.7) gm/dl Hct (34.1-44.9) % MCV (79.4-94.8) fl MCH (25.6-32.2) pg MCHC (32.2-35.5) g/dl RDW Std Deviation (36.4-46.3) fL Plt Count (182-369) K/mm3 MPV (9.4-12.3) fl Neut % (Auto) (34.0-71.1) % Lymph % (Auto) (19.3-51.7) % [place] % (Auto) (4.7-12.5) % Eos % (Auto) (0.7-5.8) Baso % (Auto) (0.1-1.2) % Neut # (Auto) (1.56-6.13) K/mm3 Lymph # (Auto) (1.18-3.74) K/mm3 [place] # (Auto) (0.24-0.36) K/mm3 Eos # (Auto) (0.04-0.36) K/mm3 Baso # (Auto) (0.01-0.08) K/mm3 Sodium (136-145) mEq/L Potassium (3.5-5.1) mEq/L Chloride (98-107) mEq/L Carbon Dioxide (21-32) mEq/L Anion Gap (5-15) BUN (7-18) mg/dL Creatinine (0.55-1.02) mg/dL Est Cr Clr Drug Dosing mL/min Estimated GFR (MDRD) (>60) mL/min BUN/Creatinine Ratio (14-18) Glucose (83-115) mg/dL POC Glucose 258 H 152 H 170 H (70-99) mg/dL Calcium (8.5-10.1) mg/dL Magnesium (1.8-2.4) mg/dl 03/25/21 03/25/21 Range/Units 04:54 04:54 WBC 7.90 (3.98-10.04) K/mm3 RBC 3.01 L (3.98-5.22) M/mm3 Hgb 9.2 L (11.2-15.7) gm/dl Hct 28.9 L (34.1-44.9) % MCV 96.0 H (79.4-94.8) fl MCH 30.6 (25.6-32.2) pg MCHC 31.8 L (32.2-35.5) g/dl RDW Std Deviation 50.3 H (36.4-46.3) fL Plt Count 191 (182-369) K/mm3 MPV 10.2 (9.4-12.3) fl Neut % (Auto) 63.2 (34.0-71.1) % Lymph % (Auto) 25.8 (19.3-51.7) % [place] % (Auto) 6.3 (4.7-12.5) % Eos % (Auto) 3.5 (0.7-5.8) Baso % (Auto) 0.3 (0.1-1.2) % Neut # (Auto) 4.99 (1.56-6.13) K/mm3 Lymph # (Auto) 2.04 (1.18-3.74) K/mm3 [place] # (Auto) 0.50 H (0.24-0.36) K/mm3 Eos # (Auto) 0.28 (0.04-0.36) K/mm3 Baso # (Auto) 0.02 (0.01-0.08) K/mm3 Sodium 141 (136-145) mEq/L Potassium 3.9 (3.5-5.1) mEq/L Chloride 104 (98-107) mEq/L Carbon Dioxide 26 (21-32) mEq/L Anion Gap 14.9 (5-15) BUN 28 H (7-18) mg/dL Creatinine 1.5 H (0.55-1.02) mg/dL Est Cr Clr Drug Dosing 18.26 mL/min Estimated GFR (MDRD) 33 (>60) mL/min BUN/Creatinine Ratio 18.7 H (14-18) Glucose 173 H (83-115) mg/dL POC Glucose (70-99) mg/dL Calcium 8.4 L (8.5-10.1) mg/dL Magnesium 2.1 (1.8-2.4) mg/dl SONYA Results - Last 24 hrs: Microbiology 03/21/21 14:05 Aerobic Blood Culture - Preliminary Blood - Venous NO GROWTH AFTER 3 DAYS Anaerobic Blood Culture - Preliminary NO GROWTH AFTER 3 DAYS 03/21/21 14:12 Aerobic Blood Culture - Preliminary Blood - Venous - Lab Draw NO GROWTH AFTER 3 DAYS Anaerobic Blood Culture - Preliminary NO GROWTH AFTER 3 DAYS Med Orders - Current: Current Medications Acetaminophen (Acetaminophen 325 Mg Tab) 650 mg PO Q4H PRN PRN Reason: Pain (Mild 1-3)/fever Albuterol/Ipratropium (Albuterol/Ipratropium 3.0-0.5 Mg/3 Ml Neb Soln) 3 ml NEB QID PRN PRN Reason: FOR SOB Furosemide (Furosemide 20 Mg Tab) 20 mg PO DAILY KANNAN Last Admin: 03/25/21 08:37 Dose: 20 mg Documented by: Gabapentin (Gabapentin 600 Mg Tab) 600 mg PO BID [facility] Last Admin: 03/25/21 08:37 Dose: 600 mg Documented by: Insulin Human Lispro (Insulin Lispro 100 Unit/Ml) 0 unit SUBCUT QIDACANDBED [facility]; Protocol Last Admin: 03/25/21 08:37 Dose: 2 unit Documented by: Metoprolol Succinate (Metoprolol Succinate 50 Mg Tab.Er) 50 mg PO DAILY [facility] Last Admin: 03/25/21 08:36 Dose: 50 mg Documented by: Ondansetron HCl (Ondansetron 4 Mg/2 Ml Sdv) 4 mg IV Q6H PRN PRN Reason: Nausea/Vomiting Pantoprazole Sodium (Pantoprazole 40 Mg Vial) 40 mg IV Q12HR [facility] Last Admin: 03/25/21 08:37 Dose: 40 mg Documented by: Polyethylene Glycol (Polyethylene Glycol 3350 Powder 17 Gm Packet) 17 gm PO ASDIRECTED PRN PRN Reason: Constipation Discontinued Medications Albuterol (Albuterol 0.083% 2.5 Mg/3 Ml Neb Soln) 2.5 mg NEB ONETIME ONE Stop: 03/21/21 12:42 Last Admin: 03/21/21 15:06 Dose: Not Given Documented by: Albuterol/Ipratropium (Albuterol/Ipratropium 3.0-0.5 Mg/3 Ml Neb Soln) 3 ml NEB QIDRT [facility] Last Admin: 03/23/21 06:31 Dose: Not Given Documented by: Docusate Sodium (Docusate Sodium 100 Mg Cap) 100 mg PO BID [facility] Last Admin: 03/22/21 08:27 Dose: Not Given Documented by: Furosemide (Furosemide 40 Mg Tab) 20 mg PO DAILY [facility] Last Admin: 03/22/21 08:26 Dose: Not Given Documented by: Gabapentin (Gabapentin 300 Mg Cap) 600 mg PO BID [facility] Last Admin: 03/22/21 08:26 Dose: Not Given Documented by: Dextrose/Lactated Ringer's (Dextrose 5%-Lactated Ringers) 1,000 mls @ 75 mls/hr IV ASDIRECTED [facility] Stop: 03/22/21 01:49 Ceftriaxone Sodium 1 gm/ (Sodium Chloride) 100 mls @ 200 mls/hr IV Q24H [facility] Stop: 03/24/21 16:00 Last Admin: 03/24/21 15:19 Dose: 200 mls/hr Documented by: Dextrose/Sodium Chloride (Dextrose 5%-Normal Saline) 1,000 mls @ 75 mls/hr IV ASDIRECTED [facility] Stop: 03/22/21 04:04 Last Admin: 03/21/21 16:08 Dose: 75 mls/hr Documented by: Sodium Chloride (Normal Saline) 250 mls @ 50 mls/hr IV ASDIRECTED [facility] Last Admin: 03/23/21 09:15 Dose: 50 mls/hr Documented by: Insulin Human Regular (Insulin Regular, Human 100 Units/Ml 3 Ml Vial) 5 unit SUBCUT ONETIME ONE Stop: 03/21/21 13:01 Last Admin: 03/21/21 14:09 Dose: 5 unit Documented by: Ondansetron HCl (Ondansetron 4 Mg/2 Ml Sdv) 4 mg IVPUSH ONETIME ONE Stop: 03/21/21 10:57 Last Admin: 03/21/21 11:03 Dose: 4 mg Documented by: Pantoprazole Sodium (Pantoprazole 40 Mg Vial) 40 mg IVPUSH ONETIME ONE Stop: 03/21/21 10:57 Last Admin: 03/21/21 11:03 Dose: 40 mg Documented by: - Exam Quality Assessment: Reports: Supplemental Oxygen (2L - chronic ), DVT Prophylaxis. Denies: Urine Catheter General: Reports: Alert, Oriented, Cooperative, No Acute Distress HEENT: Reports: Pupils Equal, Pupils Reactive, Mucous Membr. Moist/[place] Neck: Reports: Supple, Trachea Midline Lungs: Reports: Clear to Auscultation, Normal Respiratory Effort Cardiovascular: Reports: Regular Rate, Irregular Rhythm GI/Abdominal Exam: Normal Bowel Sounds, Soft, Non-Tender, No Distention (Female) Exam: Deferred Rectal (Female) Exam: Deferred Back Exam: Reports: Normal Inspection, Full Range of Motion Extremities: Normal Inspection, Normal Range of Motion, Non-Tender, No Pedal Edema, Normal Capillary Refill Skin: Reports: Warm, Dry, Intact Neurological: Reports: No New Focal Deficit Psy/Mental Status: Reports: Alert, Normal Affect, Normal Mood *Q Meaningful Use (DIS) - VTE *Q VTE Pharmacological Contraindications *Q: Active Hemorrhage
[2021-03-25 12:45] VITALS: BP 110/40; PULSE 57
== END 2021-03-25 13:32 | DRG 377 ==
LOC: JD.ED 08:38 → JD.MS 11:52
PROVIDERS: ADMIT Internal Medicine; ATTEND Internal Medicine
PROC: 30233N1 Transfusion of Nonautologous Red Blood Cells into Peripheral Vein, Percutaneous Approach (ICD-10-PCS; principal; 2021-03-21)
DX: K92.1 Melena (principal); I50.43 Acute on chronic combined systolic (congestive) and diastolic (congestive) heart failure; I13.0 Hypertensive heart and chronic kidney disease with heart failure and stage 1 through stage 4 chronic kidney disease, or unspecified chronic kidney disease; I48.91 Unspecified atrial fibrillation; N18.4 Chronic kidney disease, stage 4 (severe); N30.01 Acute cystitis with hematuria; I50.9 Heart failure, unspecified; N18.9 Chronic kidney disease, unspecified; J96.11 Chronic respiratory failure with hypoxia; D63.1 Anemia in chronic kidney disease; Z66 Do not resuscitate; K59.09 Other constipation; R33.9 Retention of urine, unspecified; G89.29 Other chronic pain; M79.2 Neuralgia and neuritis, unspecified; D64.9 Anemia, unspecified; Z85.828 Personal history of other malignant neoplasm of skin; Z88.1 Allergy status to other antibiotic agents; F01.50 Vascular dementia, unspecified severity, without behavioral disturbance, psychotic disturbance, mood disturbance, and anxiety; F32.9 Major depressive disorder, single episode, unspecified; Z79.4 Long term (current) use of insulin; Z79.899 Other long term (current) drug therapy; E11.9 Type 2 diabetes mellitus without complications; H54.7 Unspecified visual loss; I48.0 Paroxysmal atrial fibrillation; M54.9 Dorsalgia, unspecified; E11.22 Type 2 diabetes mellitus with diabetic chronic kidney disease; F32.89 Other specified depressive episodes; R13.10 Dysphagia, unspecified; E11.65 Type 2 diabetes mellitus with hyperglycemia; Z79.82 Long term (current) use of aspirin; E87.5 Hyperkalemia; B96.89 Other specified bacterial agents as the cause of diseases classified elsewhere; Z20.822 Contact with and (suspected) exposure to COVID-19; Z86.73 Personal history of transient ischemic attack (TIA), and cerebral infarction without residual deficits; Z87.01 Personal history of pneumonia (recurrent); Z79.02 Long term (current) use of antithrombotics/antiplatelets
CPT/HCPCS: 36415; 36430; 80048; 80053; 81001; 82272; 82570; 82947; 83540; 83605; 83735; 84132; 84145; 84300; 84466; 84484; 85014; 85018; 85025; 85610; 85730; 86140; 86850; 86900; 86901; 86922; 87040; 87086; 87088; 87186; 87641; 93005; 94640; 94760; 94761; 96374; 96375; 97110-GO; 97110-GP; 97162-GP; 97166-GO; 97530-GO; 97535-GO; 99223; 99233; 99239; 99283; 99285-25; A9270-GY; C9113; J0696; J1815-GY; J2405; J7042; J7050; J7620-GY; P9016; U0002

== ENCOUNTER 2021-09-14 15:46 | Inpatient (IN) | payer MEDICARE, OTHER ==
[2021-09-14] MEDS ORDERED: Sodium Chloride 0.9% 10 ML Syringe FLUSH PRN (16:11)
[2021-09-14] MEDS ORDERED: Acetaminophen 325 MG Tab PO ONE (16:12)
[2021-09-14] MEDS ORDERED: cefTRIAXone 2 GM in Sodium Chloride 0.9% 100 ML IV ONE (16:13)
[2021-09-14] MEDS ORDERED: Sodium Chloride 0.9% 1,000 ML IV SCH (16:15)
--- NOTE | 2021-09-14 16:38 | EDM.PDOC ---
ED HPI GENERAL MEDICAL PROBLEM - General Chief Complaint: Possible Sepsis Stated Complaint: COLETTE AMB Time Seen by Provider: 09/14/21 15:49 Source of Information: Reports: EMS, Assisted Records, Provider History Limitations: Reports: Altered Mental Status - History of Present Illness INITIAL COMMENTS - FREE TEXT/NARRATIVE: [facility] for generalized weakness and fever. She was tested for COVID today and it was negative. She had her toe nails removed on each big toe last week. They have been doing dressings and antibiotic ointment. There is swelling and redness to the right foot and lower leg. Her oxygen saturations were low at 88%. She normally does not need oxygen. She normally will get up on her own. She needed the Eva lift to get her up today. She has no cough, vomiting or diarrhea. Onset: Gradual Duration: Day(s): Location: Reports: Lower Extremity, Right Severity: Moderate Improves with: Reports: None Worsens with: Reports: None Associated Symptoms: Reports: Fever/Chills, Shortness of Breath. Denies: Cough, Nausea/Vomiting - Related Data Allergies Allergy/AdvReac Type Severity Reaction Status Date / Time levofloxacin [From Levaquin] Allergy Severe Itching Verified 09/14/21 15:55 Home Meds: Home Meds Gabapentin [Neurontin] 600 mg PO BID 10/20/15 [History] Furosemide [Lasix] 20 mg PO DAILY 04/29/19 [History] Metoprolol Succinate 50 mg PO DAILY 04/29/19 [History] polyethylene glycoL 3350 [MiraLAX] 17 gm PO DAILY PRN 04/29/19 [History] Spironolactone [Aldactone] 50 mg PO DAILY #30 tablet 05/06/19 [Rx] Insulin Aspart [NovoLOG] 13 unit SUBCUT TID 08/31/20 [History] Calcium Carbonate [Tums] 200 mg PO Q4HR PRN 03/21/21 [History] Insulin Degludec [Tresiba] 20 unit SQ DAILY 03/21/21 [History] Phenyleph/Mineral Oil/Petrolat [Preparation H Ointment] 1 appful RECTAL BID PRN 03/21/21 [History] Pantoprazole Sodium [Protonix] 40 mg PO DAILY #30 tablet. 03/25/21 [Rx] Acetaminophen [Tylenol] 650 mg PO BEDTIME 09/14/21 [History] Clopidogrel [Plavix] 75 mg PO DAILY 09/14/21 [History] bisacodyL [Bisacodyl] 10 mg PO DAILY PRN 09/14/21 [History] Past Medical History HEENT History: Reports: Impaired Vision Other HEENT History: dysphagia Cardiovascular History: Reports: Afib, Arrhythmia, Heart Failure, Hypertension Other Cardiovascular History: Afib, anemia Respiratory History: Reports: Pneumonia, Recurrent, Other (See Below) Other Respiratory History: hypoxemia requiring home O2 Gastrointestinal History: Reports: Chronic Constipation, GERD Other Gastrointestinal History: dysphagia Genitourinary History: Reports: Chronic Renal Insuffiency, Retention, 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: Musculoskeletal History: Reports: Back Pain, Chronic, Other (See Below) Other Musculoskeletal History: muscle weakness; left femur fracture, right knee pain Neurological History: Reports: CVA, TIA, Other (See Below) Other Neuro History: vascular dementia; cerebral infarct; neuralgia Psychiatric History: Reports: Dementia, Depression Other Psychiatric History: vascular dementia Endocrine/Metabolic History: Reports: Diabetes, Type II Hematologic History: Reports: Anemia Oncologic (Cancer) History: Reports: Other (See Below) Other Oncologic History: unknown skin cancer Dermatologic History: Reports: Other (See Below) Other Dermatologic History: previous supspected skin cancer - Infectious Disease History Infectious Disease History: Reports: Chicken Pox, Influenza, Measles, Mumps - Past Surgical History HEENT Surgical History: Reports: None Cardiovascular Surgical History: Reports: None GI Surgical History: Reports: Cholecystectomy Female Surgical History: Reports: None Musculoskeletal Surgical History: Reports: Other (See Below) Other Musculoskeletal Surgeries/Procedures:: toenail removal Oncologic Surgical History: Reports: None Social & Family History - Family History Family Medical History: No Pertinent Family History - Tobacco Use Tobacco Use Status *Q: Unknown Ever Used Tobacco - Caffeine Use Caffeine Use: Reports: None ED ROS GENERAL - Review of Systems Review Of Systems: See Below Constitutional: Reports: Fever HEENT: Reports: No Symptoms Respiratory: Reports: No Symptoms Cardiovascular: Reports: No Symptoms Endocrine: Reports: No Symptoms GI/Abdominal: Reports: No Symptoms : Reports: No Symptoms ED EXAM, SEPSIS - Physical Exam Exam: See Below Exam Limited By: Altered Mental Status General Appearance: Alert, No Apparent Distress Ears: Normal External Exam Nose: Normal Inspection Head: Atraumatic, Normocephalic Neck: Normal Inspection Respiratory/Chest: No Respiratory Distress, Lungs Clear, Normal Breath Sounds Cardiovascular: Regular Rate, Rhythm, No Edema, No Murmur GI/Abdominal Exam: Soft, Non-Tender, No Organomegaly, No Mass Back: Normal Inspection Extremities: Other (Bilateral missing toe nails to the great toe with mild erythema. There is erythema to the right anterior foot, ankle and lower leg.) Course - Vital Signs Last Recorded V/S: Last Vital Signs Temp 100.8 F H 09/14/21 16:50 Pulse 86 09/14/21 15:51 Resp 27 H 09/14/21 15:51 BP 99/69 09/14/21 15:51 Pulse Ox 97 09/14/21 16:15 - Orders/Labs/Meds Orders: Active Orders 24 hr Category Date Time Status Cardiac Monitoring [RC] . DIRECTED Care 09/14/21 16:11 Active Oxygen Therapy [RC] PRN Care 09/14/21 16:11 Active Peripheral IV Care [RC] . DIRECTED Care 09/14/21 16:12 Active BLOOD CULTURE [MREF] Stat Lab 09/14/21 16:25 Received BLOOD CULTURE [MREF] Stat Lab 09/14/21 16:40 Received Sodium Chloride 0.9% [Normal Saline] 1,000 ml Med 09/14/21 16:15 Active IV ASDIRECTED Sodium Chloride 0.9% [Saline Flush] Med 09/14/21 16:11 Active 10 ml FLUSH ASDIRECTED PRN Blood Culture x2 Reflex Set [OM.PC] Stat Oth 09/14/21 16:12 Ordered Peripheral IV Insertion Adult [OM.PC] Stat Oth 09/14/21 16:11 Ordered Medication Orders Sodium Chloride (Normal Saline) 1,000 mls @ 125 mls/hr IV ASDIRECTED KANNAN Last Admin: 09/14/21 16:49 Dose: 125 mls/hr Documented by: JANELLE Sodium Chloride (Sodium Chloride 0.9% 10 Ml Syringe) 10 ml FLUSH ASDIRECTED PRN PRN Reason: Keep Vein Open Last Admin: 09/14/21 16:50 Dose: 10 ml Documented by: JANELLE Labs: Laboratory Tests 09/14/21 09/14/21 09/14/21 Range/Units 16:15 16:16 16:25 WBC 16.48 H (3.98-10.04) K/mm3 RBC 4.61 (3.98-5.22) M/mm3 Hgb 13.6 D (11.2-15.7) gm/dl Hct 42.7 (34.1-44.9) % MCV 92.6 D (79.4-94.8) fl MCH 29.5 (25.6-32.2) pg MCHC 31.9 L (32.2-35.5) g/dl RDW Std Deviation 55.5 H (36.4-46.3) fL Plt Count 260 (182-369) K/mm3 MPV 10.7 (9.4-12.3) fl Neut % (Auto) 88.9 H (34.0-71.1) % Lymph % (Auto) 5.8 L (19.3-51.7) % [place] % (Auto) 4.2 L (4.7-12.5) % Eos % (Auto) 0.2 L (0.7-5.8) Baso % (Auto) 0.4 (0.1-1.2) % Neut # (Auto) 14.66 H (1.56-6.13) K/mm3 Lymph # (Auto) 0.95 L (1.18-3.74) K/mm3 [place] # (Auto) 0.69 H (0.24-0.36) K/mm3 Eos # (Auto) 0.03 L (0.04-0.36) K/mm3 Baso # (Auto) 0.06 (0.01-0.08) K/mm3 PT (9.7-12.0) SECONDS INR APTT (21.7-31.4) SECONDS Sodium (136-145) mEq/L Potassium (3.5-5.1) mEq/L Chloride (98-107) mEq/L Carbon Dioxide (21-32) mEq/L Anion Gap (5-15) BUN (7-18) mg/dL Creatinine (0.55-1.02) mg/dL Est Cr Clr Drug Dosing mL/min Estimated GFR (MDRD) (>60) mL/min BUN/Creatinine Ratio (14-18) Glucose (70-99) mg/dL Lactic Acid (0.4-2.0) mmol/L Calcium (8.5-10.1) mg/dL Total Bilirubin (0.2-1.0) mg/dL AST (15-37) U/L ALT (14-59) U/L Alkaline Phosphatase (46-116) U/L C-Reactive Protein (<1.0) mg/dL Total Protein (6.4-8.2) g/dl Albumin (3.4-5.0) g/dl Globulin gm/dL Albumin/Globulin Ratio (1-2) Urine Color Yellow (Yellow) Urine Appearance Clear (Clear) Urine pH 7.0 (5.0-8.0) Ur Specific [place] 1.020 (1.005-1.030) Urine Protein Negative (Negative) Urine Glucose (UA) Negative (Negative) Urine Ketones Negative (Negative) Urine Occult Blood Negative (Negative) Urine Nitrite Negative (Negative) Urine Bilirubin Negative (Negative) Urine Urobilinogen 0.2 (0.2-1.0) Ur Leukocyte Esterase Negative (Negative) Urine RBC 0-5 (0-5) /hpf Urine WBC 0-5 (0-5) /hpf Ur Squamous Epith Cells 0-5 (0-5) /hpf Urine Bacteria Few (FEW) /hpf Urine Mucus Not seen (FEW) /hpf SARS-CoV-2 RNA (HAYDE) Negative (NEGATIVE) 09/14/21 09/14/21 09/14/21 Range/Units 16:25 16:25 16:25 WBC (3.98-10.04) K/mm3 RBC (3.98-5.22) M/mm3 Hgb (11.2-15.7) gm/dl Hct (34.1-44.9) % MCV (79.4-94.8) fl MCH (25.6-32.2) pg MCHC (32.2-35.5) g/dl RDW Std Deviation (36.4-46.3) fL Plt Count (182-369) K/mm3 MPV (9.4-12.3) fl Neut % (Auto) (34.0-71.1) % Lymph % (Auto) (19.3-51.7) % [place] % (Auto) (4.7-12.5) % Eos % (Auto) (0.7-5.8) Baso % (Auto) (0.1-1.2) % Neut # (Auto) (1.56-6.13) K/mm3 Lymph # (Auto) (1.18-3.74) K/mm3 [place] # (Auto) (0.24-0.36) K/mm3 Eos # (Auto) (0.04-0.36) K/mm3 Baso # (Auto) (0.01-0.08) K/mm3 PT 10.1 (9.7-12.0) SECONDS INR < 0.93 APTT 22.7 (21.7-31.4) SECONDS Sodium 135 L (136-145) mEq/L Potassium 4.9 (3.5-5.1) mEq/L Chloride 100 (98-107) mEq/L Carbon Dioxide 27 (21-32) mEq/L Anion Gap 12.9 (5-15) BUN 34 H (7-18) mg/dL Creatinine 2.6 H (0.55-1.02) mg/dL Est Cr Clr Drug Dosing 10.54 mL/min Estimated GFR (MDRD) 17 (>60) mL/min BUN/Creatinine Ratio 13.1 L (14-18) Glucose 85 (70-99) mg/dL Lactic Acid 1.3 (0.4-2.0) mmol/L Calcium 9.6 (8.5-10.1) mg/dL Total Bilirubin 0.6 (0.2-1.0) mg/dL AST 21 (15-37) U/L ALT 18 (14-59) U/L Alkaline Phosphatase 107 (46-116) U/L C-Reactive Protein 2.8 H* (<1.0) mg/dL Total Protein 8.2 (6.4-8.2) g/dl Albumin 4.1 (3.4-5.0) g/dl Globulin 4.1 gm/dL Albumin/Globulin Ratio 1.0 (1-2) Urine Color (Yellow) Urine Appearance (Clear) Urine pH (5.0-8.0) Ur Specific [place] (1.005-1.030) Urine Protein (Negative) Urine Glucose (UA) (Negative) Urine Ketones (Negative) Urine Occult Blood (Negative) Urine Nitrite (Negative) Urine Bilirubin (Negative) Urine Urobilinogen (0.2-1.0) Ur Leukocyte Esterase (Negative) Urine RBC (0-5) /hpf Urine WBC (0-5) /hpf Ur Squamous Epith Cells (0-5) /hpf Urine Bacteria (FEW) /hpf Urine Mucus (FEW) /hpf SARS-CoV-2 RNA (HAYDE) (NEGATIVE) Meds: Medications Generic Name Dose Route Start Last Admin Trade Name Freq PRN Reason Stop Dose Admin Sodium Chloride 1,000 mls @ 125 mls/hr 09/14/21 16:15 09/14/21 16:49 Normal Saline IV 125 mls/hr ASDIRECTED KANNAN Administration Sodium Chloride 10 ml 09/14/21 16:11 09/14/21 16:50 Sodium Chloride 0.9% 10 Ml Syringe FLUSH 10 ml ASDIRECTED PRN Administration Keep Vein Open Discontinued Medications Generic Name Dose Route Start Last Admin Trade Name Freq PRN Reason Stop Dose Admin Acetaminophen 975 mg 09/14/21 16:12 09/14/21 16:50 Acetaminophen 325 Mg Tab PO 09/14/21 16:13 975 mg NOW ONE Administration Ceftriaxone Sodium 2 gm/ 100 mls @ 200 mls/hr 09/14/21 16:13 09/14/21 16:50 Sodium Chloride IV 09/14/21 16:42 200 mls/hr ONETIME ONE Administration - Re-Assessments/Exams Free Text/Narrative Re-Assessment/Exam: 09/14/21 16:38 I ordered oxygen, IV NS at 125mL/hr, labs, CXR, blood cultures, UA, lactic acid and COVID 19 test. 09/14/21 16:39 09/14/21 18:06 Her CXR shows nothing acute. 09/14/21 18:09 Her WBC is elevated at 16.48. Her PT and PTT are normal. Her creatinine is elevated at 2.6. Her CRP is 2.8. Her UA shows no UTI. Her COVID is negative. She has a right leg cellulitis with sepsis. I have ordered blood cultures and rocpehin 2 grams IV. I feel she needs to be admitted. I called Dr Rooney and he agreed to the admission. Departure - Departure Time of Disposition: 18:15 Disposition: Admitted As Inpatient 67 Condition: Fair Clinical Impression: Cellulitis of right leg, Renal insufficiency, Hypoxia Sepsis Qualifiers: Sepsis type: sepsis due to unspecified organism Sepsis acute organ dysfunction status: unspecified Qualified Code(s): A41.9 - Sepsis, unspecified organism - Discharge Information Forms: ED Department Discharge Sepsis Event Note (ED) - Evaluation Sepsis Screening Result: No Definite Risk - Focused Exam Vital Signs: Vital Signs Temp Temp Pulse Resp BP Pulse Ox Pulse Ox 09/14/21 16:50 100.8 F H 09/14/21 16:15 97 09/14/21 15:51 100.8 F H 86 27 H 99/69 88 L - My Orders Last 24 Hours: My Active Orders 09/14/21 16:11 Cardiac Monitoring [RC] . DIRECTED Oxygen Therapy [RC] PRN Sodium Chloride 0.9% [Saline Flush] 10 ml FLUSH ASDIRECTED PRN Peripheral IV Insertion Adult [OM.PC] Stat 09/14/21 16:12 Peripheral IV Care [RC] . DIRECTED Blood Culture x2 Reflex Set [OM.PC] Stat 09/14/21 16:15 Sodium Chloride 0.9% [Normal Saline] 1,000 ml IV ASDIRECTED 09/14/21 16:25 BLOOD CULTURE [MREF] Stat 09/14/21 16:40 BLOOD CULTURE [MREF] Stat - Assessment/Plan Last 24 Hours: My Active Orders 09/14/21 16:11 Cardiac Monitoring [RC] . DIRECTED Oxygen Therapy [RC] PRN Sodium Chloride 0.9% [Saline Flush] 10 ml FLUSH ASDIRECTED PRN Peripheral IV Insertion Adult [OM.PC] Stat 09/14/21 16:12 Peripheral IV Care [RC] . DIRECTED Blood Culture x2 Reflex Set [OM.PC] Stat 09/14/21 16:15 Sodium Chloride 0.9% [Normal Saline] 1,000 ml IV ASDIRECTED 09/14/21 16:25 BLOOD CULTURE [MREF] Stat 09/14/21 16:40 BLOOD CULTURE [MREF] Stat
--- NOTE | 2021-09-14 18:01 | CR ---
Chest: Frontal view of the chest was obtained. Comparison: Prior chest x-ray of 01/06/21. Heart size is slightly enlarged. Upper mediastinum is within normal limits. Lung markings are slightly increased which appear stable. No definite acute parenchymal change is seen. Scoliosis is noted within the spine. Osteopenia is present. Impression: 1. Findings as noted above. 2. Nothing acute is definitely seen on frontal chest x-ray. Diagnostic code #2
[2021-09-14] MEDS ORDERED: Morphine 2 MG/ML SYRINGE IVPUSH PRN (19:03)
[2021-09-14] MEDS ORDERED: oxyCODONE 5 MG Tab PO PRN (19:03)
[2021-09-14] MEDS ORDERED: Promethazine 6.25 MG in Sodium Chloride 0.9% 50 ML IV PRN (19:03)
[2021-09-14] MEDS ORDERED: Albuterol/Ipratropium 3.0-0.5 MG/3 ML Neb Soln NEB PRN (19:03)
[2021-09-14] MEDS ORDERED: Acetaminophen 650 MG Supp RECTAL PRN (19:03)
[2021-09-14] MEDS ORDERED: Polyethylene Glycol 3350 Powder 17 GM Packet PO PRN (19:10)
[2021-09-14] MEDS ORDERED: Calcium Carbonate 500 MG Tab.Chew PO PRN (19:10)
[2021-09-14] MEDS ORDERED: Bisacodyl 5 MG Tab PO PRN (19:10)
[2021-09-14] MEDS ORDERED: Lactated Ringers 1,000 ML IV SCH ×2 (19:15)
--- NOTE | 2021-09-14 19:28 | PCM.HP.2 ---
H&P History of Present Illness - General Date of Service: 09/14/21 Admit Problem/Dx: Admission Diagnosis/Problem Admission Diagnosis/Problem Sepsis Source of Information: Patient, Family - History of Present Illness Initial Comments - Free Text/Narative: Patient is an 89-year-old female with a history of CHF, hypertension, diabetes, and atrial fibrillation who was brought [facility] the ER from a [facility] due to generalized weakness, confusion and fever. As per daughter, she was fine on Sunday (3 days ago). Today she was found to be very weak so that she is unable to stand up and walk. Right leg and both feet were found to be red. Patient had both great toe nails removed last week. In the ER, she was found to have low fever, leukocytosis, oxygen desaturation 88%, and elevation of creatinine. When I saw this patient in the ER, other than the symptoms mentioned above, she denies headache, dizziness, nausea, vomiting, chest pain, abdominal pain, dysuria, or change in vision. - Related Data Allergies/Adverse Reactions: Allergies Allergy/AdvReac Type Severity Reaction Status Date / Time levofloxacin [From Levaquin] Allergy Severe Itching Verified 09/14/21 15:55 Home Medications: Home Meds Gabapentin [Neurontin] 600 mg PO BID 10/20/15 [History] Furosemide [Lasix] 20 mg PO DAILY 04/29/19 [History] Metoprolol Succinate 50 mg PO DAILY 04/29/19 [History] polyethylene glycoL 3350 [MiraLAX] 17 gm PO DAILY PRN 04/29/19 [History] Spironolactone [Aldactone] 50 mg PO DAILY #30 tablet 05/06/19 [Rx] Insulin Aspart [NovoLOG] 13 unit SUBCUT TID 08/31/20 [History] Calcium Carbonate [Tums] 200 mg PO Q4HR PRN 03/21/21 [History] Insulin Degludec [Tresiba] 20 unit SQ DAILY 03/21/21 [History] Phenyleph/Mineral Oil/Petrolat [Preparation H Ointment] 1 appful RECTAL BID PRN 03/21/21 [History] Pantoprazole Sodium [Protonix] 40 mg PO DAILY #30 tablet. 03/25/21 [Rx] Acetaminophen [Tylenol] 650 mg PO BEDTIME 09/14/21 [History] Clopidogrel [Plavix] 75 mg PO DAILY 09/14/21 [History] bisacodyL [Bisacodyl] 10 mg PO DAILY PRN 09/14/21 [History] Past Medical History HEENT History: Reports: Impaired Vision Other HEENT History: dysphagia Cardiovascular History: Reports: Afib, Arrhythmia, Heart Failure, Hypertension Other Cardiovascular History: Afib, anemia Respiratory History: Reports: Pneumonia, Recurrent, Other (See Below) Other Respiratory History: hypoxemia requiring home O2 Gastrointestinal History: Reports: Chronic Constipation, GERD Other Gastrointestinal History: dysphagia Genitourinary History: Reports: Chronic Renal Insuffiency, Retention, Urinary [employer] History: Reports: Musculoskeletal History: Reports: Back Pain, Chronic, Other (See Below) Other Musculoskeletal History: muscle weakness; left femur fracture, right knee pain Neurological History: Reports: CVA, TIA, Other (See Below) Other Neuro History: vascular dementia; cerebral infarct; neuralgia Psychiatric History: Reports: Dementia, Depression Other Psychiatric History: vascular dementia Endocrine/Metabolic History: Reports: Diabetes, Type II Hematologic History: Reports: Anemia Oncologic (Cancer) History: Reports: Other (See Below) Other Oncologic History: unknown skin cancer Dermatologic History: Reports: Other (See Below) Other Dermatologic History: previous supspected skin cancer - Infectious Disease History Infectious Disease History: Reports: Chicken Pox, Influenza, Measles, Mumps - Past Surgical History HEENT Surgical History: Reports: None Cardiovascular Surgical History: Reports: None GI Surgical History: Reports: Cholecystectomy Female Surgical History: Reports: None Musculoskeletal Surgical History: Reports: Other (See Below) Other Musculoskeletal Surgeries/Procedures:: toenail removal Oncologic Surgical History: Reports: None Social & Family History - Family History Family Medical History: No Pertinent Family History (Denies genetic diseases in family) - Tobacco Use Tobacco Use Status *Q: Unknown Ever Used Tobacco - Caffeine Use Caffeine Use: Reports: None H&P Review of Systems - Review of Systems: Review Of Systems: See Below General: Reports: Fever, Weakness HEENT: Reports: No Symptoms Pulmonary: Reports: No Symptoms Cardiovascular: Reports: No Symptoms Gastrointestinal: Reports: No Symptoms Genitourinary: Reports: No Symptoms Musculoskeletal: Reports: Leg Pain Skin: Reports: No Symptoms Psychiatric: Reports: No Symptoms Neurological: Reports: Confusion Hematologic/Lymphatic: Reports: No Symptoms Immunologic: Reports: No Symptoms Exam - Exam Exam: See Below - Vital Signs Vital Signs: Last Vital Signs Temp 38.2 C H 09/14/21 16:50 Pulse 86 09/14/21 15:51 Resp 18 09/14/21 18:46 BP 95/47 L 09/14/21 18:46 Pulse Ox 98 09/14/21 18:46 Weight: 71.849 kg - Exam General: Cooperative (confusion, disorientation) HEENT: Conjunctiva Clear, EACs Clear, EOMI, Pupils Equal, Pupils Reactive Neck: Supple, Trachea Midline, Full Range of Motion. No: JVD Lungs: Clear to Auscultation, Normal Respiratory Effort Cardiovascular: Irregular Rhythm GI/Abdominal Exam: Normal Bowel Sounds, Soft, Non-Tender, No Organomegaly, Distended Extremities: Other (right low leg and both proximal feet erythema, warm, and tenderness. Both great toe nails missed. ) Skin: Warm, Dry, Intact Neurological: Reflexes Equal Bilateral, Strength Equal Bilateral, Sensation Intact Neuro Extensive - Mental Status: Alert (A+O x 1 (place)) Psychiatric: Normal Affect, Normal Mood - Patient Data Lab Results Last 24 hrs: Laboratory Results - last 24 hr 09/14/21 09/14/21 09/14/21 Range/Units 16:15 16:16 16:25 WBC 16.48 H (3.98-10.04) K/mm3 RBC 4.61 (3.98-5.22) M/mm3 Hgb 13.6 D (11.2-15.7) gm/dl Hct 42.7 (34.1-44.9) % MCV 92.6 D (79.4-94.8) fl MCH 29.5 (25.6-32.2) pg MCHC 31.9 L (32.2-35.5) g/dl RDW Std Deviation 55.5 H (36.4-46.3) fL Plt Count 260 (182-369) K/mm3 MPV 10.7 (9.4-12.3) fl Neut % (Auto) 88.9 H (34.0-71.1) % Lymph % (Auto) 5.8 L (19.3-51.7) % [place] % (Auto) 4.2 L (4.7-12.5) % Eos % (Auto) 0.2 L (0.7-5.8) Baso % (Auto) 0.4 (0.1-1.2) % Neut # (Auto) 14.66 H (1.56-6.13) K/mm3 Lymph # (Auto) 0.95 L (1.18-3.74) K/mm3 [place] # (Auto) 0.69 H (0.24-0.36) K/mm3 Eos # (Auto) 0.03 L (0.04-0.36) K/mm3 Baso # (Auto) 0.06 (0.01-0.08) K/mm3 PT (9.7-12.0) SECONDS INR APTT (21.7-31.4) SECONDS Sodium (136-145) mEq/L Potassium (3.5-5.1) mEq/L Chloride (98-107) mEq/L Carbon Dioxide (21-32) mEq/L Anion Gap (5-15) BUN (7-18) mg/dL Creatinine (0.55-1.02) mg/dL Est Cr Clr Drug Dosing mL/min Estimated GFR (MDRD) (>60) mL/min BUN/Creatinine Ratio (14-18) Glucose (70-99) mg/dL Lactic Acid (0.4-2.0) mmol/L Calcium (8.5-10.1) mg/dL Total Bilirubin (0.2-1.0) mg/dL AST (15-37) U/L ALT (14-59) U/L Alkaline Phosphatase (46-116) U/L C-Reactive Protein (<1.0) mg/dL Total Protein (6.4-8.2) g/dl Albumin (3.4-5.0) g/dl Globulin gm/dL Albumin/Globulin Ratio (1-2) Urine Color Yellow (Yellow) Urine Appearance Clear (Clear) Urine pH 7.0 (5.0-8.0) Ur Specific [place] 1.020 (1.005-1.030) Urine Protein Negative (Negative) Urine Glucose (UA) Negative (Negative) Urine Ketones Negative (Negative) Urine Occult Blood Negative (Negative) Urine Nitrite Negative (Negative) Urine Bilirubin Negative (Negative) Urine Urobilinogen 0.2 (0.2-1.0) Ur Leukocyte Esterase Negative (Negative) Urine RBC 0-5 (0-5) /hpf Urine WBC 0-5 (0-5) /hpf Ur Squamous Epith Cells 0-5 (0-5) /hpf Urine Bacteria Few (FEW) /hpf Urine Mucus Not seen (FEW) /hpf SARS-CoV-2 RNA (HAYDE) Negative (NEGATIVE) 09/14/21 09/14/21 09/14/21 Range/Units 16:25 16:25 16:25 WBC (3.98-10.04) K/mm3 RBC (3.98-5.22) M/mm3 Hgb (11.2-15.7) gm/dl Hct (34.1-44.9) % MCV (79.4-94.8) fl MCH (25.6-32.2) pg MCHC (32.2-35.5) g/dl RDW Std Deviation (36.4-46.3) fL Plt Count (182-369) K/mm3 MPV (9.4-12.3) fl Neut % (Auto) (34.0-71.1) % Lymph % (Auto) (19.3-51.7) % [place] % (Auto) (4.7-12.5) % Eos % (Auto) (0.7-5.8) Baso % (Auto) (0.1-1.2) % Neut # (Auto) (1.56-6.13) K/mm3 Lymph # (Auto) (1.18-3.74) K/mm3 [place] # (Auto) (0.24-0.36) K/mm3 Eos # (Auto) (0.04-0.36) K/mm3 Baso # (Auto) (0.01-0.08) K/mm3 PT 10.1 (9.7-12.0) SECONDS INR < 0.93 APTT 22.7 (21.7-31.4) SECONDS Sodium 135 L (136-145) mEq/L Potassium 4.9 (3.5-5.1) mEq/L Chloride 100 (98-107) mEq/L Carbon Dioxide 27 (21-32) mEq/L Anion Gap 12.9 (5-15) BUN 34 H (7-18) mg/dL Creatinine 2.6 H (0.55-1.02) mg/dL Est Cr Clr Drug Dosing 10.54 mL/min Estimated GFR (MDRD) 17 (>60) mL/min BUN/Creatinine Ratio 13.1 L (14-18) Glucose 85 (70-99) mg/dL Lactic Acid 1.3 (0.4-2.0) mmol/L Calcium 9.6 (8.5-10.1) mg/dL Total Bilirubin 0.6 (0.2-1.0) mg/dL AST 21 (15-37) U/L ALT 18 (14-59) U/L Alkaline Phosphatase 107 (46-116) U/L C-Reactive Protein 2.8 H* (<1.0) mg/dL Total Protein 8.2 (6.4-8.2) g/dl Albumin 4.1 (3.4-5.0) g/dl Globulin 4.1 gm/dL Albumin/Globulin Ratio 1.0 (1-2) Urine Color (Yellow) Urine Appearance (Clear) Urine pH (5.0-8.0) Ur Specific [place] (1.005-1.030) Urine Protein (Negative) Urine Glucose (UA) (Negative) Urine Ketones (Negative) Urine Occult Blood (Negative) Urine Nitrite (Negative) Urine Bilirubin (Negative) Urine Urobilinogen (0.2-1.0) Ur Leukocyte Esterase (Negative) Urine RBC (0-5) /hpf Urine WBC (0-5) /hpf Ur Squamous Epith Cells (0-5) /hpf Urine Bacteria (FEW) /hpf Urine Mucus (FEW) /hpf SARS-CoV-2 RNA (HAYDE) (NEGATIVE) Result Diagrams: 09/14/21 16:25 09/14/21 16:25 Octavio Results Last 24 hrs: Microbiology 09/14/21 16:15 Influenza Type A Antigen Screen - Final Nasopharyngeal Swab - Nare, Unspecified NEGATIVE INFLUENZA A VIRUS AG REFERENCE RANGE: NEGATIVE Influenza Type B Antigen Screen - Final NEGATIVE INFLUENZA B VIRUS AG REFERENCE RANGE: NEGATIVE Sepsis Event Note - Evaluation Sepsis Screening Result: No Definite Risk - Focused Exam Vital Signs: Vital Signs Temp Temp Pulse Resp BP Pulse Ox Pulse Ox 09/14/21 18:46 18 95/47 L 98 09/14/21 16:50 38.2 C H 09/14/21 16:15 97 09/14/21 15:51 38.2 C H 86 27 H 99/69 88 L Problem List Initiated/Reviewed/Updated: Yes Orders Last 24hrs: Active Orders 24 hr Category Date Time Status Patient Status [ADT] Routine ADT 09/14/21 18:11 Active Bedrest Bedside Commode [RC] ASDIRECTED Care 09/14/21 19:03 Ordered Cardiac Monitoring [RC] . DIRECTED Care 09/14/21 16:11 Active Cardiac Monitoring [RC] CONTINUOUS Care 09/14/21 19:04 Ordered Intake and Output [RC] QSHIFT Care 09/14/21 19:04 Ordered Oxygen Therapy [RC] PRN Care 09/14/21 16:11 Active Oxygen Therapy [RC] PRN Care 09/14/21 19:03 Ordered Peripheral IV Care [RC] . DIRECTED Care 09/14/21 16:12 Active Pulse Oximetry [RC] CONTINUOUS Care 09/14/21 19:04 Ordered RT Aerosol Therapy [RC] ASDIRECTED Care 09/14/21 19:07 Ordered VTE/DVT Education [RC] PER UNIT ROUTINE Care 09/14/21 19:03 Ordered Vital Signs [RC] Q4H Care 09/14/21 19:03 Ordered OT Evaluation and Treatment [CONS] Routine Cons 09/14/21 19:03 Ordered PT Evaluation and Treatment [CONS] Routine Cons 09/14/21 19:03 Ordered NPO Now [Nothing per Oral Now Diet] [DIET] Diet 09/15/21 Breakfast Ordered VL Duplex Lwr Ext Veins Ltd Lt [US] Routine Exams 09/14/21 19:19 Ordered BLOOD CULTURE [MREF] Stat Lab 09/14/21 16:25 Received BLOOD CULTURE [MREF] Stat Lab 09/14/21 16:40 Received CBC WITH AUTO DIFF [HEME] DAILY Lab 09/15/21 05:00 Ordered CBC WITH AUTO DIFF [HEME] DAILY Lab 09/16/21 05:00 Ordered CBC WITH AUTO DIFF [HEME] DAILY Lab 09/17/21 05:00 Ordered CBC WITH AUTO DIFF [HEME] DAILY Lab 09/18/21 05:00 Ordered CBC WITH AUTO DIFF [HEME] DAILY Lab 09/19/21 05:00 Ordered COMPREHENSIVE METABOLIC PN,CMP [CHEM] DAILY Lab 09/15/21 05:00 Ordered COMPREHENSIVE METABOLIC PN,CMP [CHEM] DAILY Lab 09/16/21 05:00 Ordered COMPREHENSIVE METABOLIC PN,CMP [CHEM] DAILY Lab 09/17/21 05:00 Ordered COMPREHENSIVE METABOLIC PN,CMP [CHEM] DAILY Lab 09/18/21 05:00 Ordered COMPREHENSIVE METABOLIC PN,CMP [CHEM] DAILY Lab 09/19/21 05:00 Ordered MAGNESIUM [CHEM] DAILY Lab 09/15/21 05:00 Ordered PRO B-TYPE NATRIUR PEPT,BNPPRO [CHEM] DAILY Lab 09/15/21 05:00 Ordered Acetaminophen [Tylenol] Med 09/14/21 19:03 Ordered 650 mg RECTAL Q6H PRN Albuterol/Ipratropium [DuoNeb 3.0-0.5 MG/3 ML] Med 09/14/21 19:03 Ordered 3 ml NEB Q4H PRN Calcium Carbonate [Tums] Med 09/14/21 19:10 Ordered 200 mg PO Q4HR PRN Clopidogrel [Plavix] Med 09/15/21 09:00 Ordered 75 mg PO DAILY Gabapentin [Neurontin] Med 09/14/21 21:00 Ordered 600 mg PO BID Heparin Sodium Med 09/14/21 19:15 Ordered 5,000 units SUBCUT Q8H Insulin Glargine,Hum.Rec.Anlog [Semglee Pen] Med 09/14/21 19:30 Ordered 10 unit SUBCUT DAILY Insulin Lispro [HumaLOG] Med 09/14/21 22:00 Ordered See Protocol SUBCUT QIDACANDBED Lactated Ringers [Ringers, Lactated] 1,000 ml Med 09/14/21 19:15 Ordered IV ASDIRECTED Morphine Med 09/14/21 19:03 Ordered 1 mg IVPUSH Q4H PRN Pantoprazole Sodium Med 09/15/21 09:00 Ordered 40 mg PO DAILY Promethazine [Phenergan] 6.25 mg Med 09/14/21 19:03 Ordered Sodium Chloride 0.9% [Normal Saline] 50 ml IV Q6H Sodium Chloride 0.9% [Saline Flush] Med 09/14/21 16:11 Active 10 ml FLUSH ASDIRECTED PRN bisacodyL [Dulcolax] Med 09/14/21 19:10 Ordered 10 mg PO DAILY PRN cefTRIAXone [Rocephin] 1 gm Med 09/14/21 19:15 Ordered Sodium Chloride 0.9% [Normal Saline] 100 ml IV Q24H oxyCODONE Med 09/14/21 19:03 Ordered 5 mg PO Q6H PRN polyethylene glycoL 3350 [MiraLAX] Med 09/14/21 19:10 Ordered 17 gm PO DAILY PRN Blood Culture x2 Reflex Set [OM.PC] Stat Oth 09/14/21 16:12 Ordered Peripheral IV Insertion Adult [OM.PC] Stat Oth 09/14/21 16:11 Ordered Resuscitation Status Routine Resus Stat 09/14/21 19:03 Ordered Medication Orders Acetaminophen (Acetaminophen 650 Mg Supp) 650 mg RECTAL Q6H PRN PRN Reason: Pain (mild 1-3) Albuterol/Ipratropium (Albuterol/Ipratropium 3.0-0.5 Mg/3 Ml Neb Soln) 3 ml NEB Q4H PRN PRN Reason: Shortness Of Breath/wheezing Bisacodyl (Bisacodyl 5 Mg Tab) 10 mg PO DAILY PRN PRN Reason: Constipation Calcium Carbonate/Glycine (Calcium Carbonate 500 Mg Tab.Chew) 250 mg PO Q4H PRN PRN Reason: Heartburn Clopidogrel Bisulfate (Clopidogrel 75 Mg Tab) 75 mg PO DAILY KANNAN Gabapentin (Gabapentin 300 Mg Cap) 600 mg PO BID KANNAN Heparin Sodium (Porcine) (Heparin Sodium 5,000 Units/Ml Vial) 5,000 units SUBCUT Q8H KANNAN Promethazine HCl 6.25 mg/ (Sodium Chloride) 50.25 mls @ 100 mls/hr IV Q6H PRN PRN Reason: Nausea/Vomiting Lactated Ringer's (Ringers, Lactated) 1,000 mls @ 50 mls/hr IV ASDIRECTED KANNAN Ceftriaxone Sodium 1 gm/ (Sodium Chloride) 100 mls @ 200 mls/hr IV Q24H KANNAN Morphine Sulfate (Morphine 2 Mg/Ml Syringe) 1 mg IVPUSH Q4H PRN PRN Reason: Pain (severe 7-10) Stop: 09/15/21 19:06 Oxycodone HCl (Oxycodone 5 Mg Tab) 5 mg PO Q6H PRN PRN Reason: Pain (moderate 4-6) Pantoprazole Sodium (Pantoprazole 40 Mg Tab.Cr) 40 [facility] Polyethylene Glycol (Polyethylene Glycol 3350 Powder 17 Gm Packet) 17 gm PO DAILY PRN PRN Reason: Constipation Sodium Chloride (Sodium Chloride 0.9% 10 Ml Syringe) 10 ml FLUSH ASDIRECTED PRN PRN Reason: Keep Vein Open Last Admin: 09/14/21 16:50 Dose: 10 ml Documented by: JANELLE Assessment/Plan Comment:: Patient is an 89-year-old female with a history of CHF, hypertension, diabetes, and atrial fibrillation who was brought to the ER from a [facility] due to generalized weakness, confusion and fever. Assessment and plan AMS Etiologies include sepsis/infection, dehydration, metabolic events No focal neurological deficits Closely monitor Early sepsis 2nd to cellulitis of right leg LA 1.3, CRP 2.8 Blood culture Gentle IV fluid Antibiotics Cellulitis, right leg and foot Had great toe nails removed lsat week US doppler to rule out a DVT Ceftriaxone 1 g IV daily Acute hypoxic respiratory failure Oxygen saturation 88% in the ER Etiology unknown Pulse ox Oxygen therapy to keep oxygen saturation greater than 94% HOME on CKD, creatinine 1.0 on 12/06/2018, creatinine has been around 2.0 over the past 2-3 years. Avoid nephrotoxic meds Repeat renal function in the morning DM type 2 on insulin degludec 20units daily N.p.o. due to history of dysphagia I will order Lantus 10 units daily Insulin sliding scales HTN Metoprolol succinate 50mg daily is on hold due to soft blood pressure Hydralazine as needed CHF, NYHA class II lasix 20mg daily and spironolactone 50mg daily are on hold Intake and output Repeat electrolytes in the morning Atrial fibrillation Heart rate is controlled Metoprolol is on hold due to soft blood pressure History of GI bleeding. Not on anticoagulation Hx of GI bleeding Continue home medication Plavix Repeat a CBC in morning hx of dysphagia N.p.o. Speech pathology consult Generalized weakness PT OT DVT prophylaxis: Heparin CODE STATUS: DNR/DNI. Discussed with the patient and her daughter who declined CPR and intubation Disposition: Greater than 2 midnights - Mortality Measure Prognosis:: Poor
[2021-09-14] MEDS ORDERED: Gabapentin 300 MG Cap PO ONE (19:45)
[2021-09-14] MEDS: Heparin Sodium 5,000 Units/ML Vial SUBCUT SCH (20:16)
[2021-09-14] MEDS: Insulin Glargine,Hum.Rec.Anlog 100 UNIT/ML 3 ML Pen SUBCUT SCH (20:20)
--- NOTE | 2021-09-14 20:30 | US ---
Right lower extremity deep venous ultrasound: Duplex and color Doppler evaluation was obtained of the right common femoral, proximal greater saphenous, superficial femoral, popliteal, posterior tibial and peroneal veins. Left common femoral vein was also evaluated. Comparison: Prior bilateral venous ultrasound of 07/22/12. Findings: Major portion of the peroneal vein was not able to be evaluated because it was not seen. Proximal peroneal vein was seen and evaluated. Normal phasic flow, augmentation and compression are seen within the visualized veins. Impression: 1. No findings of deep venous thrombosis within the right lower extremity or within the left common femoral vein. Diagnostic code #1
[2021-09-14] MEDS: Acetaminophen 325 MG Tab PO PRN (21:00)
[2021-09-14] MEDS: Insulin Lispro 100 Unit/ML 3 ML KwikPen SUBCUT SCH (23:06)
[2021-09-15] MEDS: Heparin Sodium 5,000 Units/ML Vial SUBCUT SCH ×3 (04:57→19:53)
[2021-09-15] MEDS: Pantoprazole 40 MG Tab.CR PO SCH (05:00)
[2021-09-15] MEDS: Insulin Lispro 100 Unit/ML 3 ML KwikPen SUBCUT SCH ×5 (08:35→22:46)
[2021-09-15] MEDS: cefTRIAXone 1 GM in Sodium Chloride 0.9% 100 ML IV SCH ×2 (09:00→19:54)
[2021-09-15] MEDS: Clopidogrel 75 MG Tab PO SCH (09:00)
[2021-09-15] MEDS: Insulin Glargine,Hum.Rec.Anlog 100 UNIT/ML 3 ML Pen SUBCUT SCH ×2 (10:28→19:59)
[2021-09-15] MEDS ORDERED: cefTRIAXone 1 GM in Sodium Chloride 0.9% 100 ML IV SCH (16:00)
--- NOTE | 2021-09-15 17:18 | PCM.PN ---
- General Info Date of Service: 09/15/21 Admission Dx/Problem (Free Text): Admission Diagnosis/Problem Admission Diagnosis/Problem Sepsis Subjective Update: Patient is an 89-year-old female with a history of CHF, hypertension, diabetes, and atrial fibrillation who was brought to the ER from a care home due to generalized weakness, confusion and fever. Patient feels well today. She states that she thinks she could have gone home with a just gave her an antibiotic by pill. She is awake and oriented. Functional Status: Reports: Pain Controlled - Review of Systems General: Reports: No Symptoms HEENT: Reports: No Symptoms Pulmonary: Reports: No Symptoms Cardiovascular: Reports: No Symptoms Gastrointestinal: Reports: No Symptoms Musculoskeletal: Reports: No Symptoms Skin: Reports: No Symptoms Neurological: Reports: No Symptoms Psychiatric: Reports: No Symptoms - Patient Data Vitals - Most Recent: Last Vital Signs Temp 98.6 F 09/15/21 15:06 Pulse 77 09/15/21 15:06 Resp 20 09/15/21 15:06 BP 128/47 L 09/15/21 15:06 Pulse Ox 93 L 09/15/21 15:06 Weight - Most Recent: 158 lb 14.4 oz I&O - Last 24 Hours: Intake & Output 09/15/21 09/15/21 09/15/21 06:59 14:59 22:59 Intake Total 396 Output Total 200 Balance 396 -200 Lab Results Last 24 Hours: Laboratory Results - last 24 hr 09/14/21 09/14/21 09/14/21 Range/Units 16:15 16:25 20:45 WBC (3.98-10.04) K/mm3 RBC (3.98-5.22) M/mm3 Hgb (11.2-15.7) gm/dl Hct (34.1-44.9) % MCV (79.4-94.8) fl MCH (25.6-32.2) pg MCHC (32.2-35.5) g/dl RDW Std Deviation (36.4-46.3) fL Plt Count (182-369) K/mm3 MPV (9.4-12.3) fl Neut % (Auto) (34.0-71.1) % Lymph % (Auto) (19.3-51.7) % Steele % (Auto) (4.7-12.5) % Eos % (Auto) (0.7-5.8) Baso % (Auto) (0.1-1.2) % Neut # (Auto) (1.56-6.13) K/mm3 Lymph # (Auto) (1.18-3.74) K/mm3 Steele # (Auto) (0.24-0.36) K/mm3 Eos # (Auto) (0.04-0.36) K/mm3 Baso # (Auto) (0.01-0.08) K/mm3 Sodium (136-145) mEq/L Potassium (3.5-5.1) mEq/L Chloride (98-107) mEq/L Carbon Dioxide (21-32) mEq/L Anion Gap (5-15) BUN (7-18) mg/dL Creatinine (0.55-1.02) mg/dL Est Cr Clr Drug Dosing mL/min Estimated GFR (MDRD) (>60) mL/min BUN/Creatinine Ratio (14-18) Glucose (70-99) mg/dL POC Glucose 77 (70-99) mg/dL Lactic Acid 1.3 (0.4-2.0) mmol/L Calcium (8.5-10.1) mg/dL Magnesium (1.8-2.4) mg/dL Total Bilirubin (0.2-1.0) mg/dL AST (15-37) U/L ALT (14-59) U/L Alkaline Phosphatase (46-116) U/L NT-Pro-B Natriuret Pep (0-450) pg/mL Total Protein (6.4-8.2) g/dl Albumin (3.4-5.0) g/dl Globulin gm/dL Albumin/Globulin Ratio (1-2) SARS-CoV-2 RNA (HAYDE) Negative (NEGATIVE) MRSA (PCR) 09/14/21 09/14/21 09/15/21 Range/Units 22:06 22:25 06:15 WBC 11.06 H (3.98-10.04) K/mm3 RBC 3.86 L (3.98-5.22) M/mm3 Hgb 11.2 D (11.2-15.7) gm/dl Hct 36.3 (34.1-44.9) % MCV 94.0 (79.4-94.8) fl MCH 29.0 (25.6-32.2) pg MCHC 30.9 L (32.2-35.5) g/dl RDW Std Deviation 56.0 H (36.4-46.3) fL Plt Count 206 (182-369) K/mm3 MPV 10.3 (9.4-12.3) fl Neut % (Auto) 77.0 H (34.0-71.1) % Lymph % (Auto) 12.7 L (19.3-51.7) % Steele % (Auto) 8.3 (4.7-12.5) % Eos % (Auto) 1.2 (0.7-5.8) Baso % (Auto) 0.4 (0.1-1.2) % Neut # (Auto) 8.53 H (1.56-6.13) K/mm3 Lymph # (Auto) 1.40 (1.18-3.74) K/mm3 Steele # (Auto) 0.92 H (0.24-0.36) K/mm3 Eos # (Auto) 0.13 (0.04-0.36) K/mm3 Baso # (Auto) 0.04 (0.01-0.08) K/mm3 Sodium (136-145) mEq/L Potassium (3.5-5.1) mEq/L Chloride (98-107) mEq/L Carbon Dioxide (21-32) mEq/L Anion Gap (5-15) BUN (7-18) mg/dL Creatinine (0.55-1.02) mg/dL Est Cr Clr Drug Dosing mL/min Estimated GFR (MDRD) (>60) mL/min BUN/Creatinine Ratio (14-18) Glucose (70-99) mg/dL POC Glucose 182 H (70-99) mg/dL Lactic Acid (0.4-2.0) mmol/L Calcium (8.5-10.1) mg/dL Magnesium (1.8-2.4) mg/dL Total Bilirubin (0.2-1.0) mg/dL AST (15-37) U/L ALT (14-59) U/L Alkaline Phosphatase (46-116) U/L NT-Pro-B Natriuret Pep (0-450) pg/mL Total Protein (6.4-8.2) g/dl Albumin (3.4-5.0) g/dl Globulin gm/dL Albumin/Globulin Ratio (1-2) SARS-CoV-2 RNA (HAYDE) (NEGATIVE) MRSA (PCR) Negative 09/15/21 09/15/21 09/15/21 Range/Units 06:15 06:15 06:37 WBC (3.98-10.04) K/mm3 RBC (3.98-5.22) M/mm3 Hgb (11.2-15.7) gm/dl Hct (34.1-44.9) % MCV (79.4-94.8) fl MCH (25.6-32.2) pg MCHC (32.2-35.5) g/dl RDW Std Deviation (36.4-46.3) fL Plt Count (182-369) K/mm3 MPV (9.4-12.3) fl Neut % (Auto) (34.0-71.1) % Lymph % (Auto) (19.3-51.7) % Steele % (Auto) (4.7-12.5) % Eos % (Auto) (0.7-5.8) Baso % (Auto) (0.1-1.2) % Neut # (Auto) (1.56-6.13) K/mm3 Lymph # (Auto) (1.18-3.74) K/mm3 Steele # (Auto) (0.24-0.36) K/mm3 Eos # (Auto) (0.04-0.36) K/mm3 Baso # (Auto) (0.01-0.08) K/mm3 Sodium 140 (136-145) mEq/L Potassium 4.1 (3.5-5.1) mEq/L Chloride 104 (98-107) mEq/L Carbon Dioxide 28 (21-32) mEq/L Anion Gap 12.1 (5-15) BUN 33 H (7-18) mg/dL Creatinine 2.6 H (0.55-1.02) mg/dL Est Cr Clr Drug Dosing 11.07 mL/min Estimated GFR (MDRD) 17 (>60) mL/min BUN/Creatinine Ratio 12.7 L (14-18) Glucose 118 H (70-99) mg/dL POC Glucose 141 H (70-99) mg/dL Lactic Acid (0.4-2.0) mmol/L Calcium 8.6 (8.5-10.1) mg/dL Magnesium 2.2 (1.8-2.4) mg/dL Total Bilirubin 0.4 (0.2-1.0) mg/dL AST 13 L (15-37) U/L ALT 12 L (14-59) U/L Alkaline Phosphatase 84 (46-116) U/L NT-Pro-B Natriuret Pep 252 (0-450) pg/mL Total Protein 6.6 (6.4-8.2) g/dl Albumin 3.1 L (3.4-5.0) g/dl Globulin 3.5 gm/dL Albumin/Globulin Ratio 0.9 L (1-2) SARS-CoV-2 RNA (HAYDE) (NEGATIVE) MRSA (PCR) 09/15/21 Range/Units 11:06 WBC (3.98-10.04) K/mm3 RBC (3.98-5.22) M/mm3 Hgb (11.2-15.7) gm/dl Hct (34.1-44.9) % MCV (79.4-94.8) fl MCH (25.6-32.2) pg MCHC (32.2-35.5) g/dl RDW Std Deviation (36.4-46.3) fL Plt Count (182-369) K/mm3 MPV (9.4-12.3) fl Neut % (Auto) (34.0-71.1) % Lymph % (Auto) (19.3-51.7) % Steele % (Auto) (4.7-12.5) % Eos % (Auto) (0.7-5.8) Baso % (Auto) (0.1-1.2) % Neut # (Auto) (1.56-6.13) K/mm3 Lymph # (Auto) (1.18-3.74) K/mm3 Steele # (Auto) (0.24-0.36) K/mm3 Eos # (Auto) (0.04-0.36) K/mm3 Baso # (Auto) (0.01-0.08) K/mm3 Sodium (136-145) mEq/L Potassium (3.5-5.1) mEq/L Chloride (98-107) mEq/L Carbon Dioxide (21-32) mEq/L Anion Gap (5-15) BUN (7-18) mg/dL Creatinine (0.55-1.02) mg/dL Est Cr Clr Drug Dosing mL/min Estimated GFR (MDRD) (>60) mL/min BUN/Creatinine Ratio (14-18) Glucose (70-99) mg/dL POC Glucose 98 (70-99) mg/dL Lactic Acid (0.4-2.0) mmol/L Calcium (8.5-10.1) mg/dL Magnesium (1.8-2.4) mg/dL Total Bilirubin (0.2-1.0) mg/dL AST (15-37) U/L ALT (14-59) U/L Alkaline Phosphatase (46-116) U/L NT-Pro-B Natriuret Pep (0-450) pg/mL Total Protein (6.4-8.2) g/dl Albumin (3.4-5.0) g/dl Globulin gm/dL Albumin/Globulin Ratio (1-2) SARS-CoV-2 RNA (HAYDE) (NEGATIVE) MRSA (PCR) Octavio Results Last 24 Hours: Microbiology 09/14/21 16:15 Influenza Type A Antigen Screen - Final Nasopharyngeal Swab - Nare, Unspecified NEGATIVE INFLUENZA A VIRUS AG REFERENCE RANGE: NEGATIVE Influenza Type B Antigen Screen - Final NEGATIVE INFLUENZA B VIRUS AG REFERENCE RANGE: NEGATIVE Med Orders - Current: Current Medications Acetaminophen (Acetaminophen 650 Mg Supp) 650 mg RECTAL Q6H PRN PRN Reason: Pain (mild 1-3) Acetaminophen (Acetaminophen 325 Mg Tab) 650 mg PO Q4H PRN PRN Reason: Pain Last Admin: 09/14/21 21:00 Dose: 650 mg Documented by: Albuterol/Ipratropium (Albuterol/Ipratropium 3.0-0.5 Mg/3 Ml Neb Soln) 3 ml NEB Q4H PRN PRN Reason: Shortness Of Breath/wheezing Bisacodyl (Bisacodyl 5 Mg Tab) 10 mg PO DAILY PRN PRN Reason: Constipation Last Admin: 09/14/21 20:26 Dose: 5 mg Documented by: Calcium Carbonate/Glycine (Calcium Carbonate 500 Mg Tab.Chew) 250 mg PO Q4H PRN PRN Reason: Heartburn Clopidogrel Bisulfate (Clopidogrel 75 Mg Tab) 75 mg PO DAILY [facility] Last Admin: 09/15/21 09:00 Dose: 75 mg Documented by: Gabapentin (Gabapentin 300 Mg Cap) 300 mg PO BEDTIME [facility] Heparin Sodium (Porcine) (Heparin Sodium 5,000 Units/Ml Vial) 5,000 units SUBCUT Q8H [facility] Last Admin: 09/15/21 12:14 Dose: 5,000 units Documented by: Promethazine HCl 6.25 mg/ (Sodium Chloride) 50.25 mls @ 100 mls/hr IV Q6H PRN PRN Reason: Nausea/Vomiting Ceftriaxone Sodium 1 gm/ (Sodium Chloride) 100 mls @ 200 mls/hr IV Q12H [facility] Last Admin: 09/15/21 09:00 Dose: 200 mls/hr Documented by: Insulin Glargine (Insulin Glargine,Hum.Rec.Anlog 100 Unit/Ml 3 Ml Pen) 10 unit SUBCUT BEDTIME [facility] Insulin Human Lispro (Insulin Lispro 100 Unit/Ml 3 Ml Kwikpen) 0 unit SUBCUT QIDACANDBED [facility]; Protocol Last Admin: 09/15/21 11:34 Dose: Not Given Documented by: Morphine Sulfate (Morphine 2 Mg/Ml Syringe) 1 mg IVPUSH Q4H PRN PRN Reason: Pain (severe 7-10) Stop: 09/15/21 19:06 Oxycodone HCl (Oxycodone 5 Mg Tab) 5 mg PO Q6H PRN PRN Reason: Pain (moderate 4-6) Pantoprazole Sodium (Pantoprazole 40 Mg Tab.Cr) 40 mg PO ACBREAKFAST [facility] Last Admin: 09/15/21 05:00 Dose: 40 mg Documented by: Polyethylene Glycol (Polyethylene Glycol 3350 Powder 17 Gm Packet) 17 gm PO DAILY PRN PRN Reason: Constipation Sodium Chloride (Sodium Chloride 0.9% 10 Ml Syringe) 10 ml FLUSH ASDIRECTED PRN PRN Reason: Keep Vein Open Last Admin: 09/14/21 16:50 Dose: 10 ml Documented by: Discontinued Medications Acetaminophen (Acetaminophen 325 Mg Tab) 975 mg PO NOW ONE Stop: 09/14/21 16:13 Last Admin: 09/14/21 16:50 Dose: 975 mg Documented by: Gabapentin (Gabapentin 300 Mg Cap) 600 mg PO ONETIME ONE Stop: 09/14/21 19:46 Last Admin: 09/14/21 20:22 Dose: 600 mg Documented by: Sodium Chloride (Normal Saline) 1,000 mls @ 125 mls/hr IV ASDIRECTED [facility] Last Admin: 09/14/21 16:49 Dose: 125 mls/hr Documented by: Ceftriaxone Sodium 2 gm/ (Sodium Chloride) 100 mls @ 200 mls/hr IV ONETIME ONE Stop: 09/14/21 16:42 Last Admin: 09/14/21 16:50 Dose: 200 mls/hr Documented by: Lactated Ringer's (Ringers, Lactated) 1,000 mls @ 100 mls/hr IV ASDIRECTED [facility] Lactated Ringer's (Ringers, Lactated) 1,000 mls @ 50 mls/hr IV ASDIRECTED [facility] Last Admin: 09/14/21 20:47 Dose: 50 mls/hr Documented by: Ceftriaxone Sodium 1 gm/ (Sodium Chloride) 100 mls @ 200 mls/hr IV Q24H [facility] Insulin Glargine (Insulin Glargine,Hum.Rec.Anlog 100 Unit/Ml 3 Ml Pen) 10 unit SUBCUT DAILY [facility] Last Admin: 09/15/21 10:28 Dose: Not Given Documented by: - Exam Quality Assessment: No: Supplemental Oxygen General: Alert, Oriented HEENT: Pupils Equal, Mucous Membr. Moist/Roper Neck: Supple Lungs: Clear to Auscultation, Normal Respiratory Effort Cardiovascular: Regular Rate, Regular Rhythm GI/Abdominal Exam: Normal Bowel Sounds, Soft, Non-Tender, No Distention Extremities: Pedal Edema (1+) Skin: Other (Mild Erythema Bilateral lower extremities right worse than left ) Neurological: No New Focal Deficit Psy/Mental Status: Alert, Normal Affect, Normal Mood - Patient Data Lab Results Last 24 hrs: Laboratory Results - last 24 hr 09/14/21 09/14/21 09/14/21 Range/Units 16:15 16:25 20:45 WBC (3.98-10.04) K/mm3 RBC (3.98-5.22) M/mm3 Hgb (11.2-15.7) gm/dl Hct (34.1-44.9) % MCV (79.4-94.8) fl MCH (25.6-32.2) pg MCHC (32.2-35.5) g/dl RDW Std Deviation (36.4-46.3) fL Plt Count (182-369) K/mm3 MPV (9.4-12.3) fl Neut % (Auto) (34.0-71.1) % Lymph % (Auto) (19.3-51.7) % Steele % (Auto) (4.7-12.5) % Eos % (Auto) (0.7-5.8) Baso % (Auto) (0.1-1.2) % Neut # (Auto) (1.56-6.13) K/mm3 Lymph # (Auto) (1.18-3.74) K/mm3 Steele # (Auto) (0.24-0.36) K/mm3 Eos # (Auto) (0.04-0.36) K/mm3 Baso # (Auto) (0.01-0.08) K/mm3 Sodium (136-145) mEq/L Potassium (3.5-5.1) mEq/L Chloride (98-107) mEq/L Carbon Dioxide (21-32) mEq/L Anion Gap (5-15) BUN (7-18) mg/dL Creatinine (0.55-1.02) mg/dL Est Cr Clr Drug Dosing mL/min Estimated GFR (MDRD) (>60) mL/min BUN/Creatinine Ratio (14-18) Glucose (70-99) mg/dL POC Glucose 77 (70-99) mg/dL Lactic Acid 1.3 (0.4-2.0) mmol/L Calcium (8.5-10.1) mg/dL Magnesium (1.8-2.4) mg/dL Total Bilirubin (0.2-1.0) mg/dL AST (15-37) U/L ALT (14-59) U/L Alkaline Phosphatase (46-116) U/L NT-Pro-B Natriuret Pep (0-450) pg/mL Total Protein (6.4-8.2) g/dl Albumin (3.4-5.0) g/dl Globulin gm/dL Albumin/Globulin Ratio (1-2) SARS-CoV-2 RNA (HAYDE) Negative (NEGATIVE) MRSA (PCR) 09/14/21 09/14/21 09/15/21 Range/Units 22:06 22:25 06:15 WBC 11.06 H (3.98-10.04) K/mm3 RBC 3.86 L (3.98-5.22) M/mm3 Hgb 11.2 D (11.2-15.7) gm/dl Hct 36.3 (34.1-44.9) % MCV 94.0 (79.4-94.8) fl MCH 29.0 (25.6-32.2) pg MCHC 30.9 L (32.2-35.5) g/dl RDW Std Deviation 56.0 H (36.4-46.3) fL Plt Count 206 (182-369) K/mm3 MPV 10.3 (9.4-12.3) fl Neut % (Auto) 77.0 H (34.0-71.1) % Lymph % (Auto) 12.7 L (19.3-51.7) % Steele % (Auto) 8.3 (4.7-12.5) % Eos % (Auto) 1.2 (0.7-5.8) Baso % (Auto) 0.4 (0.1-1.2) % Neut # (Auto) 8.53 H (1.56-6.13) K/mm3 Lymph # (Auto) 1.40 (1.18-3.74) K/mm3 Steele # (Auto) 0.92 H (0.24-0.36) K/mm3 Eos # (Auto) 0.13 (0.04-0.36) K/mm3 Baso # (Auto) 0.04 (0.01-0.08) K/mm3 Sodium (136-145) mEq/L Potassium (3.5-5.1) mEq/L Chloride (98-107) mEq/L Carbon Dioxide (21-32) mEq/L Anion Gap (5-15) BUN (7-18) mg/dL Creatinine (0.55-1.02) mg/dL Est Cr Clr Drug Dosing mL/min Estimated GFR (MDRD) (>60) mL/min BUN/Creatinine Ratio (14-18) Glucose (70-99) mg/dL POC Glucose 182 H (70-99) mg/dL Lactic Acid (0.4-2.0) mmol/L Calcium (8.5-10.1) mg/dL Magnesium (1.8-2.4) mg/dL Total Bilirubin (0.2-1.0) mg/dL AST (15-37) U/L ALT (14-59) U/L Alkaline Phosphatase (46-116) U/L NT-Pro-B Natriuret Pep (0-450) pg/mL Total Protein (6.4-8.2) g/dl Albumin (3.4-5.0) g/dl Globulin gm/dL Albumin/Globulin Ratio (1-2) SARS-CoV-2 RNA (HAYDE) (NEGATIVE) MRSA (PCR) Negative 09/15/21 09/15/21 09/15/21 Range/Units 06:15 06:15 06:37 WBC (3.98-10.04) K/mm3 RBC (3.98-5.22) M/mm3 Hgb (11.2-15.7) gm/dl Hct (34.1-44.9) % MCV (79.4-94.8) fl MCH (25.6-32.2) pg MCHC (32.2-35.5) g/dl RDW Std Deviation (36.4-46.3) fL Plt Count (182-369) K/mm3 MPV (9.4-12.3) fl Neut % (Auto) (34.0-71.1) % Lymph % (Auto) (19.3-51.7) % Steele % (Auto) (4.7-12.5) % Eos % (Auto) (0.7-5.8) Baso % (Auto) (0.1-1.2) % Neut # (Auto) (1.56-6.13) K/mm3 Lymph # (Auto) (1.18-3.74) K/mm3 Steele # (Auto) (0.24-0.36) K/mm3 Eos # (Auto) (0.04-0.36) K/mm3 Baso # (Auto) (0.01-0.08) K/mm3 Sodium 140 (136-145) mEq/L Potassium 4.1 (3.5-5.1) mEq/L Chloride 104 (98-107) mEq/L Carbon Dioxide 28 (21-32) mEq/L Anion Gap 12.1 (5-15) BUN 33 H (7-18) mg/dL Creatinine 2.6 H (0.55-1.02) mg/dL Est Cr Clr Drug Dosing 11.07 mL/min Estimated GFR (MDRD) 17 (>60) mL/min BUN/Creatinine Ratio 12.7 L (14-18) Glucose 118 H (70-99) mg/dL POC Glucose 141 H (70-99) mg/dL Lactic Acid (0.4-2.0) mmol/L Calcium 8.6 (8.5-10.1) mg/dL Magnesium 2.2 (1.8-2.4) mg/dL Total Bilirubin 0.4 (0.2-1.0) mg/dL AST 13 L (15-37) U/L ALT 12 L (14-59) U/L Alkaline Phosphatase 84 (46-116) U/L NT-Pro-B Natriuret Pep 252 (0-450) pg/mL Total Protein 6.6 (6.4-8.2) g/dl Albumin 3.1 L (3.4-5.0) g/dl Globulin 3.5 gm/dL Albumin/Globulin Ratio 0.9 L (1-2) SARS-CoV-2 RNA (HAYDE) (NEGATIVE) MRSA (PCR) 09/15/21 Range/Units 11:06 WBC (3.98-10.04) K/mm3 RBC (3.98-5.22) M/mm3 Hgb (11.2-15.7) gm/dl Hct (34.1-44.9) % MCV (79.4-94.8) fl MCH (25.6-32.2) pg MCHC (32.2-35.5) g/dl RDW Std Deviation (36.4-46.3) fL Plt Count (182-369) K/mm3 MPV (9.4-12.3) fl Neut % (Auto) (34.0-71.1) % Lymph % (Auto) (19.3-51.7) % Steele % (Auto) (4.7-12.5) % Eos % (Auto) (0.7-5.8) Baso % (Auto) (0.1-1.2) % Neut # (Auto) (1.56-6.13) K/mm3 Lymph # (Auto) (1.18-3.74) K/mm3 Steele # (Auto) (0.24-0.36) K/mm3 Eos # (Auto) (0.04-0.36) K/mm3 Baso # (Auto) (0.01-0.08) K/mm3 Sodium (136-145) mEq/L Potassium (3.5-5.1) mEq/L Chloride (98-107) mEq/L Carbon Dioxide (21-32) mEq/L Anion Gap (5-15) BUN (7-18) mg/dL Creatinine (0.55-1.02) mg/dL Est Cr Clr Drug Dosing mL/min Estimated GFR (MDRD) (>60) mL/min BUN/Creatinine Ratio (14-18) Glucose (70-99) mg/dL POC Glucose 98 (70-99) mg/dL Lactic Acid (0.4-2.0) mmol/L Calcium (8.5-10.1) mg/dL Magnesium (1.8-2.4) mg/dL Total Bilirubin (0.2-1.0) mg/dL AST (15-37) U/L ALT (14-59) U/L Alkaline Phosphatase (46-116) U/L NT-Pro-B Natriuret Pep (0-450) pg/mL Total Protein (6.4-8.2) g/dl Albumin (3.4-5.0) g/dl Globulin gm/dL Albumin/Globulin Ratio (1-2) SARS-CoV-2 RNA (HAYDE) (NEGATIVE) MRSA (PCR) Result Diagrams: 09/15/21 06:15 09/15/21 06:15 Octavio Results Last 24 hrs: Microbiology 09/14/21 16:15 Influenza Type A Antigen Screen - Final Nasopharyngeal Swab - Nare, Unspecified NEGATIVE INFLUENZA A VIRUS AG REFERENCE RANGE: NEGATIVE Influenza Type B Antigen Screen - Final NEGATIVE INFLUENZA B VIRUS AG REFERENCE RANGE: NEGATIVE Sepsis Event Note - Evaluation Sepsis Screening Result: No Definite Risk - Focused Exam Vital Signs: Vital Signs Temp Pulse Resp BP Pulse Ox Pulse Ox Pulse Ox 09/15/21 15:06 98.6 F 77 20 128/47 L 93 L 09/15/21 12:13 98.1 F 09/15/21 11:17 99.0 F 65 20 117/64 98 09/15/21 08:55 92 L 09/15/21 07:47 65 93 L 09/15/21 07:46 98.2 F 65 16 102/39 L 90 L 09/15/21 06:29 98 - Problem List & Annotations (1) Cellulitis of right leg SNOMED Code(s): 652120327 Code(s): L03.115 - CELLULITIS OF RIGHT LOWER LIMB Status: Acute Current Visit: Yes (2) Sepsis SNOMED Code(s): 20702505 Code(s): A41.9 - SEPSIS, UNSPECIFIED ORGANISM Status: Acute Current Visit: Yes Qualifiers: Sepsis type: sepsis due to unspecified organism Sepsis acute organ dysfunction status: unspecified Qualified Code(s): A41.9 - Sepsis, unspecified organism (3) Renal insufficiency SNOMED Code(s): 076808894, 582247799 Code(s): N28.9 - DISORDER OF KIDNEY AND URETER, UNSPECIFIED Status: Chronic Priority: High Current Visit: Yes (4) Acute on chronic renal failure SNOMED Code(s): 099467679 Code(s): N17.9 - ACUTE KIDNEY FAILURE, UNSPECIFIED; N18.9 - CHRONIC KIDNEY DISEASE, UNSPECIFIED Status: Acute Priority: High Current Visit: No Qualifiers: 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) Qualified Code(s): N17.2 - Acute kidney failure with medullary necrosis; N18.4 - Chronic kidney disease, stage 4 (severe) - Problem List Review Problem List Initiated/Reviewed/Updated: Yes - My Orders Last 24 Hours: My Active Orders 09/15/21 08:00 cefTRIAXone [Rocephin] 1 gm Sodium Chloride 0.9% [Normal Saline] 100 ml IV Q12H 09/15/21 15:52 Up to Chair [RC] BID 09/15/21 Dinner Mechanical Soft Diet [DIET] - Plan Plan:: Patient is an 89-year-old female with a history of CHF, hypertension, diabetes, and atrial fibrillation who was brought to the ER from a care home due to generalized weakness, confusion and fever. Assessment and plan AMSresolved Etiologies include sepsis/infection, dehydration, metabolic events No focal neurological deficits Closely monitor Speech therapy today cleared her for mechanical soft diet. Early sepsis 2nd to cellulitis of right leg LA 1.3, CRP 2.8 Blood culture DC IV fluid Antibiotics Cellulitis, right leg and foot Had great toe nails removed lsat week US doppler to rule out a DVT Ceftriaxone 1 g IV twice daily Blood cultures pending Acute hypoxic respiratory failureresolved Oxygen saturation 88% in the ER Etiology unknown Pulse ox Oxygen therapy to keep oxygen saturation greater than 94%on room air HOME on CKD, creatinine 1.0 on 12/06/2018, creatinine has been around 2.0 over the past 2-3 years. Creatinine 2.6 Avoid nephrotoxic meds Repeat renal function in the morning DM type 2 on insulin degludec 20units daily N.p.o. due to history of dysphagia I will order Lantus 10 units daily Insulin sliding scales HTN Metoprolol succinate 50mg daily is on hold due to soft blood pressure Hydralazine as needed CHF, NYHA class II lasix 20mg daily and spironolactone 50mg daily are on hold Intake and output Repeat electrolytes in the morning Atrial fibrillation Heart rate is controlled Metoprolol is on hold due to soft blood pressure History of GI bleeding. Not on anticoagulation Hx of GI bleeding Continue home medication Plavix Repeat a CBC in morning hx of dysphagia N.p.o. Speech pathology consult Generalized weakness PT OT DVT prophylaxis: Heparin CODE STATUS: DNR/DNI. Discussed with the patient and her daughter who declined CPR and intubation Disposition: Greater than 2 midnights
[2021-09-15] MEDS: Gabapentin 300 MG Cap PO SCH ×2 (19:54→20:25)
[2021-09-16] MEDS: Heparin Sodium 5,000 Units/ML Vial SUBCUT SCH ×3 (03:49→21:43)
[2021-09-16] MEDS: Pantoprazole 40 MG Tab.CR PO SCH (06:24)
[2021-09-16] MEDS: Insulin Lispro 100 Unit/ML 3 ML KwikPen SUBCUT SCH ×4 (08:29→21:44)
[2021-09-16] MEDS: cefTRIAXone 1 GM in Sodium Chloride 0.9% 100 ML IV SCH ×2 (08:29→21:39)
[2021-09-16] MEDS: Clopidogrel 75 MG Tab PO SCH (08:29)
--- NOTE | 2021-09-16 15:57 | PCM.PN ---
- General Info Date of Service: 09/16/21 Admission Dx/Problem (Free Text): Admission Diagnosis/Problem Admission Diagnosis/Problem Sepsis Subjective Update: Patient is an 89-year-old female with a history of CHF, hypertension, diabetes, and atrial fibrillation who was brought to the ER from a residential due to generalized weakness, confusion and fever. Suma is feeling much stronger and would like to be able to stand up without the Eva lift. PT is working with her. Functional Status: Reports: Pain Controlled - Review of Systems General: Reports: No Symptoms HEENT: Reports: No Symptoms Pulmonary: Reports: No Symptoms Cardiovascular: Reports: No Symptoms Gastrointestinal: Reports: No Symptoms Musculoskeletal: Reports: No Symptoms Psychiatric: Reports: No Symptoms - Patient Data Vitals - Most Recent: Last Vital Signs Temp 98.8 F 09/16/21 11:28 Pulse 91 09/16/21 11:28 Resp 17 09/16/21 11:28 BP 141/40 H 09/16/21 11:28 Pulse Ox 92 L 09/16/21 11:28 Weight - Most Recent: 155 lb 6.4 oz I&O - Last 24 Hours: Intake & Output 09/16/21 09/16/21 09/16/21 06:59 14:59 22:59 Intake Total 700 120 Balance 700 120 Lab Results Last 24 Hours: Laboratory Results - last 24 hr 09/15/21 09/15/21 09/16/21 Range/Units 17:21 19:58 06:28 WBC (3.98-10.04) K/mm3 RBC (3.98-5.22) M/mm3 Hgb (11.2-15.7) gm/dl Hct (34.1-44.9) % MCV (79.4-94.8) fl MCH (25.6-32.2) pg MCHC (32.2-35.5) g/dl RDW Std Deviation (36.4-46.3) fL Plt Count (182-369) K/mm3 MPV (9.4-12.3) fl Neut % (Auto) (34.0-71.1) % Lymph % (Auto) (19.3-51.7) % [place] % (Auto) (4.7-12.5) % Eos % (Auto) (0.7-5.8) Baso % (Auto) (0.1-1.2) % Neut # (Auto) (1.56-6.13) K/mm3 Lymph # (Auto) (1.18-3.74) K/mm3 [place] # (Auto) (0.24-0.36) K/mm3 Eos # (Auto) (0.04-0.36) K/mm3 Baso # (Auto) (0.01-0.08) K/mm3 Sodium (136-145) mEq/L Potassium (3.5-5.1) mEq/L Chloride (98-107) mEq/L Carbon Dioxide (21-32) mEq/L Anion Gap (5-15) BUN (7-18) mg/dL Creatinine (0.55-1.02) mg/dL Est Cr Clr Drug Dosing mL/min Estimated GFR (MDRD) (>60) mL/min BUN/Creatinine Ratio (14-18) Glucose (70-99) mg/dL POC Glucose 235 H 207 H 125 H (70-99) mg/dL Calcium (8.5-10.1) mg/dL Magnesium (1.8-2.4) mg/dL Total Bilirubin (0.2-1.0) mg/dL AST (15-37) U/L ALT (14-59) U/L Alkaline Phosphatase (46-116) U/L Total Protein (6.4-8.2) g/dl Albumin (3.4-5.0) g/dl Globulin gm/dL Albumin/Globulin Ratio (1-2) 09/16/21 09/16/21 09/16/21 Range/Units 06:40 06:40 06:40 WBC 14.49 H (3.98-10.04) K/mm3 RBC 4.07 (3.98-5.22) M/mm3 Hgb 12.0 (11.2-15.7) gm/dl Hct 37.7 (34.1-44.9) % MCV 92.6 (79.4-94.8) fl MCH 29.5 (25.6-32.2) pg MCHC 31.8 L (32.2-35.5) g/dl RDW Std Deviation 55.0 H (36.4-46.3) fL Plt Count 219 (182-369) K/mm3 MPV 10.0 (9.4-12.3) fl Neut % (Auto) 78.4 H (34.0-71.1) % Lymph % (Auto) 13.0 L (19.3-51.7) % [place] % (Auto) 6.6 (4.7-12.5) % Eos % (Auto) 1.5 (0.7-5.8) Baso % (Auto) 0.2 (0.1-1.2) % Neut # (Auto) 11.36 H (1.56-6.13) K/mm3 Lymph # (Auto) 1.88 (1.18-3.74) K/mm3 [place] # (Auto) 0.95 H (0.24-0.36) K/mm3 Eos # (Auto) 0.22 (0.04-0.36) K/mm3 Baso # (Auto) 0.03 (0.01-0.08) K/mm3 Sodium 138 (136-145) mEq/L Potassium 4.0 (3.5-5.1) mEq/L Chloride 105 (98-107) mEq/L Carbon Dioxide 25 (21-32) mEq/L Anion Gap 12.0 (5-15) BUN 28 H (7-18) mg/dL Creatinine 2.1 H (0.55-1.02) mg/dL Est Cr Clr Drug Dosing 13.70 mL/min Estimated GFR (MDRD) 22 (>60) mL/min BUN/Creatinine Ratio 13.3 L (14-18) Glucose 135 H (70-99) mg/dL POC Glucose (70-99) mg/dL Calcium 8.9 (8.5-10.1) mg/dL Magnesium 2.2 (1.8-2.4) mg/dL Total Bilirubin 0.3 (0.2-1.0) mg/dL AST 17 (15-37) U/L ALT 14 (14-59) U/L Alkaline Phosphatase 84 (46-116) U/L Total Protein 6.9 (6.4-8.2) g/dl Albumin 3.2 L (3.4-5.0) g/dl Globulin 3.7 gm/dL Albumin/Globulin Ratio 0.9 L (1-2) 09/16/21 Range/Units 11:21 WBC (3.98-10.04) K/mm3 RBC (3.98-5.22) M/mm3 Hgb (11.2-15.7) gm/dl Hct (34.1-44.9) % MCV (79.4-94.8) fl MCH (25.6-32.2) pg MCHC (32.2-35.5) g/dl RDW Std Deviation (36.4-46.3) fL Plt Count (182-369) K/mm3 MPV (9.4-12.3) fl Neut % (Auto) (34.0-71.1) % Lymph % (Auto) (19.3-51.7) % [place] % (Auto) (4.7-12.5) % Eos % (Auto) (0.7-5.8) Baso % (Auto) (0.1-1.2) % Neut # (Auto) (1.56-6.13) K/mm3 Lymph # (Auto) (1.18-3.74) K/mm3 [place] # (Auto) (0.24-0.36) K/mm3 Eos # (Auto) (0.04-0.36) K/mm3 Baso # (Auto) (0.01-0.08) K/mm3 Sodium (136-145) mEq/L Potassium (3.5-5.1) mEq/L Chloride (98-107) mEq/L Carbon Dioxide (21-32) mEq/L Anion Gap (5-15) BUN (7-18) mg/dL Creatinine (0.55-1.02) mg/dL Est Cr Clr Drug Dosing mL/min Estimated GFR (MDRD) (>60) mL/min BUN/Creatinine Ratio (14-18) Glucose (70-99) mg/dL POC Glucose 209 H (70-99) mg/dL Calcium (8.5-10.1) mg/dL Magnesium (1.8-2.4) mg/dL Total Bilirubin (0.2-1.0) mg/dL AST (15-37) U/L ALT (14-59) U/L Alkaline Phosphatase (46-116) U/L Total Protein (6.4-8.2) g/dl Albumin (3.4-5.0) g/dl Globulin gm/dL Albumin/Globulin Ratio (1-2) Octavio Results Last 24 Hours: Microbiology 09/14/21 16:40 Blood Culture - Preliminary Blood - Venous - Lab Draw Gram Positive Cocci In Clustrs 09/14/21 16:25 Blood Culture - Preliminary Blood - Venous - Lab Draw Med Orders - Current: Current Medications Acetaminophen (Acetaminophen 650 Mg Supp) 650 mg RECTAL Q6H PRN PRN Reason: Pain (mild 1-3) Acetaminophen (Acetaminophen 325 Mg Tab) 650 mg PO Q4H PRN PRN Reason: Pain Last Admin: 09/14/21 21:00 Dose: 650 mg Documented by: Albuterol/Ipratropium (Albuterol/Ipratropium 3.0-0.5 Mg/3 Ml Neb Soln) 3 ml NEB Q4H PRN PRN Reason: Shortness Of Breath/wheezing Bisacodyl (Bisacodyl 5 Mg Tab) 10 mg PO DAILY PRN PRN Reason: Constipation Last Admin: 09/14/21 20:26 Dose: 5 mg Documented by: Calcium Carbonate/Glycine (Calcium Carbonate 500 Mg Tab.Chew) 250 mg PO Q4H PRN PRN Reason: Heartburn Clopidogrel Bisulfate (Clopidogrel 75 Mg Tab) 75 mg PO DAILY [facility] Last Admin: 09/16/21 08:29 Dose: 75 mg Documented by: Gabapentin (Gabapentin 300 Mg Cap) 300 mg PO BEDTIME [facility] Last Admin: 09/15/21 20:25 Dose: Not Given Documented by: Heparin Sodium (Porcine) (Heparin Sodium 5,000 Units/Ml Vial) 5,000 units SUBCUT Q8H [facility] Last Admin: 09/16/21 11:51 Dose: 5,000 units Documented by: Promethazine HCl 6.25 mg/ (Sodium Chloride) 50.25 mls @ 100 mls/hr IV Q6H PRN PRN Reason: Nausea/Vomiting Ceftriaxone Sodium 1 gm/ (Sodium Chloride) 100 mls @ 200 mls/hr IV Q12H [facility] Last Admin: 09/16/21 08:29 Dose: 200 mls/hr Documented by: Insulin Glargine (Insulin Glargine,Hum.Rec.Anlog 100 Unit/Ml 3 Ml Pen) 10 unit SUBCUT BEDTIME [facility] Last Admin: 09/15/21 19:59 Dose: 10 units Documented by: Insulin Human Lispro (Insulin Lispro 100 Unit/Ml 3 Ml Kwikpen) 0 unit SUBCUT QIDACANDBED [facility]; Protocol Last Admin: 09/16/21 11:50 Dose: 4 units Documented by: Oxycodone HCl (Oxycodone 5 Mg Tab) 5 mg PO Q6H PRN PRN Reason: Pain (moderate 4-6) Pantoprazole Sodium (Pantoprazole 40 Mg Tab.Cr) 40 mg PO ACBREAKFAST [facility] Last Admin: 09/16/21 06:24 Dose: 40 mg Documented by: Polyethylene Glycol (Polyethylene Glycol 3350 Powder 17 Gm Packet) 17 gm PO DAILY PRN PRN Reason: Constipation Sodium Chloride (Sodium Chloride 0.9% 10 Ml Syringe) 10 ml FLUSH ASDIRECTED PRN PRN Reason: Keep Vein Open Last Admin: 09/14/21 16:50 Dose: 10 ml Documented by: Discontinued Medications Acetaminophen (Acetaminophen 325 Mg Tab) 975 mg PO NOW ONE Stop: 09/14/21 16:13 Last Admin: 09/14/21 16:50 Dose: 975 mg Documented by: Gabapentin (Gabapentin 300 Mg Cap) 600 mg PO ONETIME ONE Stop: 09/14/21 19:46 Last Admin: 09/14/21 20:22 Dose: 600 mg Documented by: Sodium Chloride (Normal Saline) 1,000 mls @ 125 mls/hr IV ASDIRECTED [facility] Last Admin: 09/14/21 16:49 Dose: 125 mls/hr Documented by: Ceftriaxone Sodium 2 gm/ (Sodium Chloride) 100 mls @ 200 mls/hr IV ONETIME ONE Stop: 09/14/21 16:42 Last Admin: 09/14/21 16:50 Dose: 200 mls/hr Documented by: Lactated Ringer's (Ringers, Lactated) 1,000 mls @ 100 mls/hr IV ASDIRECTED KANNAN Lactated Ringer's (Ringers, Lactated) 1,000 mls @ 50 mls/hr IV ASDIRECTED [facility] Last Admin: 09/14/21 20:47 Dose: 50 mls/hr Documented by: Ceftriaxone Sodium 1 gm/ (Sodium Chloride) 100 mls @ 200 mls/hr IV Q24H [facility] Insulin Glargine (Insulin Glargine,Hum.Rec.Anlog 100 Unit/Ml 3 Ml Pen) 10 unit SUBCUT DAILY [facility] Last Admin: 09/15/21 10:28 Dose: Not Given Documented by: Morphine Sulfate (Morphine 2 Mg/Ml Syringe) 1 mg IVPUSH Q4H PRN PRN Reason: Pain (severe 7-10) Stop: 09/15/21 19:06 - Exam Quality Assessment: No: Supplemental Oxygen General: Alert, Oriented HEENT: Pupils Equal, Mucous Membr. Moist/[place] Neck: Supple Lungs: Clear to Auscultation, Normal Respiratory Effort Cardiovascular: Irregular Rhythm GI/Abdominal Exam: Normal Bowel Sounds, Soft, Non-Tender, No Distention Extremities: Pedal Edema (1+) Skin: Other (Improved lower extremity erythema) Wound/Incisions: Healing Well Psy/Mental Status: Alert, Normal Affect, Normal Mood - Patient Data Lab Results Last 24 hrs: Laboratory Results - last 24 hr 09/15/21 09/15/21 09/16/21 Range/Units 17:21 19:58 06:28 WBC (3.98-10.04) K/mm3 RBC (3.98-5.22) M/mm3 Hgb (11.2-15.7) gm/dl Hct (34.1-44.9) % MCV (79.4-94.8) fl MCH (25.6-32.2) pg MCHC (32.2-35.5) g/dl RDW Std Deviation (36.4-46.3) fL Plt Count (182-369) K/mm3 MPV (9.4-12.3) fl Neut % (Auto) (34.0-71.1) % Lymph % (Auto) (19.3-51.7) % [place] % (Auto) (4.7-12.5) % Eos % (Auto) (0.7-5.8) Baso % (Auto) (0.1-1.2) % Neut # (Auto) (1.56-6.13) K/mm3 Lymph # (Auto) (1.18-3.74) K/mm3 [place] # (Auto) (0.24-0.36) K/mm3 Eos # (Auto) (0.04-0.36) K/mm3 Baso # (Auto) (0.01-0.08) K/mm3 Sodium (136-145) mEq/L Potassium (3.5-5.1) mEq/L Chloride (98-107) mEq/L Carbon Dioxide (21-32) mEq/L Anion Gap (5-15) BUN (7-18) mg/dL Creatinine (0.55-1.02) mg/dL Est Cr Clr Drug Dosing mL/min Estimated GFR (MDRD) (>60) mL/min BUN/Creatinine Ratio (14-18) Glucose (70-99) mg/dL POC Glucose 235 H 207 H 125 H (70-99) mg/dL Calcium (8.5-10.1) mg/dL Magnesium (1.8-2.4) mg/dL Total Bilirubin (0.2-1.0) mg/dL AST (15-37) U/L ALT (14-59) U/L Alkaline Phosphatase (46-116) U/L Total Protein (6.4-8.2) g/dl Albumin (3.4-5.0) g/dl Globulin gm/dL Albumin/Globulin Ratio (1-2) 09/16/21 09/16/21 09/16/21 Range/Units 06:40 06:40 06:40 WBC 14.49 H (3.98-10.04) K/mm3 RBC 4.07 (3.98-5.22) M/mm3 Hgb 12.0 (11.2-15.7) gm/dl Hct 37.7 (34.1-44.9) % MCV 92.6 (79.4-94.8) fl MCH 29.5 (25.6-32.2) pg MCHC 31.8 L (32.2-35.5) g/dl RDW Std Deviation 55.0 H (36.4-46.3) fL Plt Count 219 (182-369) K/mm3 MPV 10.0 (9.4-12.3) fl Neut % (Auto) 78.4 H (34.0-71.1) % Lymph % (Auto) 13.0 L (19.3-51.7) % [place] % (Auto) 6.6 (4.7-12.5) % Eos % (Auto) 1.5 (0.7-5.8) Baso % (Auto) 0.2 (0.1-1.2) % Neut # (Auto) 11.36 H (1.56-6.13) K/mm3 Lymph # (Auto) 1.88 (1.18-3.74) K/mm3 [place] # (Auto) 0.95 H (0.24-0.36) K/mm3 Eos # (Auto) 0.22 (0.04-0.36) K/mm3 Baso # (Auto) 0.03 (0.01-0.08) K/mm3 Sodium 138 (136-145) mEq/L Potassium 4.0 (3.5-5.1) mEq/L Chloride 105 (98-107) mEq/L Carbon Dioxide 25 (21-32) mEq/L Anion Gap 12.0 (5-15) BUN 28 H (7-18) mg/dL Creatinine 2.1 H (0.55-1.02) mg/dL Est Cr Clr Drug Dosing 13.70 mL/min Estimated GFR (MDRD) 22 (>60) mL/min BUN/Creatinine Ratio 13.3 L (14-18) Glucose 135 H (70-99) mg/dL POC Glucose (70-99) mg/dL Calcium 8.9 (8.5-10.1) mg/dL Magnesium 2.2 (1.8-2.4) mg/dL Total Bilirubin 0.3 (0.2-1.0) mg/dL AST 17 (15-37) U/L ALT 14 (14-59) U/L Alkaline Phosphatase 84 (46-116) U/L Total Protein 6.9 (6.4-8.2) g/dl Albumin 3.2 L (3.4-5.0) g/dl Globulin 3.7 gm/dL Albumin/Globulin Ratio 0.9 L (1-2) 09/16/ Range/Units 11:21 WBC (3.98-10.04) K/mm3 RBC (3.98-5.22) M/mm3 Hgb (11.2-15.7) gm/dl Hct (34.1-44.9) % MCV (79.4-94.8) fl MCH (25.6-32.2) pg MCHC (32.2-35.5) g/dl RDW Std Deviation (36.4-46.3) fL Plt Count (182-369) K/mm3 MPV (9.4-12.3) fl Neut % (Auto) (34.0-71.1) % Lymph % (Auto) (19.3-51.7) % [place] % (Auto) (4.7-12.5) % Eos % (Auto) (0.7-5.8) Baso % (Auto) (0.1-1.2) % Neut # (Auto) (1.56-6.13) K/mm3 Lymph # (Auto) (1.18-3.74) K/mm3 [place] # (Auto) (0.24-0.36) K/mm3 Eos # (Auto) (0.04-0.36) K/mm3 Baso # (Auto) (0.01-0.08) K/mm3 Sodium (136-145) mEq/L Potassium (3.5-5.1) mEq/L Chloride (98-107) mEq/L Carbon Dioxide (21-32) mEq/L Anion Gap (5-15) BUN (7-18) mg/dL Creatinine (0.55-1.02) mg/dL Est Cr Clr Drug Dosing mL/min Estimated GFR (MDRD) (>60) mL/min BUN/Creatinine Ratio (14-18) Glucose (70-99) mg/dL POC Glucose 209 H (70-99) mg/dL Calcium (8.5-10.1) mg/dL Magnesium (1.8-2.4) mg/dL Total Bilirubin (0.2-1.0) mg/dL AST (15-37) U/L ALT (14-59) U/L Alkaline Phosphatase (46-116) U/L Total Protein (6.4-8.2) g/dl Albumin (3.4-5.0) g/dl Globulin gm/dL Albumin/Globulin Ratio (1-2) Result Diagrams: 09/16/21 06:40 09/16/21 06:40 Octavio Results Last 24 hrs: Microbiology 09/14/21 16:40 Blood Culture - Preliminary Blood - Venous - Lab Draw Gram Positive Cocci In Clustrs 09/14/21 16:25 Blood Culture - Preliminary Blood - Venous - Lab Draw Sepsis Event Note - Evaluation Sepsis Screening Result: Severe Sepsis Risk - Focused Exam Vital Signs: Vital Signs Temp Pulse Resp BP Pulse Ox 09/16/21 11:28 98.8 F 91 17 141/40 H 92 L 09/16/21 09:08 98.1 F 84 17 129/76 94 L - Problem List & Annotations (1) Cellulitis of right leg SNOMED Code(s): 618753152 Code(s): L03.115 - CELLULITIS OF RIGHT LOWER LIMB Status: Acute Current Visit: Yes (2) Sepsis SNOMED Code(s): 17039199 Code(s): A41.9 - SEPSIS, UNSPECIFIED ORGANISM Status: Acute Current Visit: Yes Qualifiers: Sepsis type: sepsis due to unspecified organism Sepsis acute organ dysfunc tion status: unspecified Qualified Code(s): A41.9 - Sepsis, unspecified organism (3) Renal insufficiency SNOMED Code(s): 543891832, 614705536 Code(s): N28.9 - DISORDER OF KIDNEY AND URETER, UNSPECIFIED Status: Chronic Priority: High Current Visit: Yes (4) Acute on chronic renal failure SNOMED Code(s): 355403355 Code(s): N17.9 - ACUTE KIDNEY FAILURE, UNSPECIFIED; N18.9 - CHRONIC KIDNEY DISEASE, UNSPECIFIED Status: Acute Priority: High Current Visit: No Qualifiers: 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) Qualified Code(s): N17.2 - Acute kidney failure with medullary necrosis; N18.4 - Chronic kidney disease, stage 4 (severe) - Problem List Review Problem List Initiated/Reviewed/Updated: Yes - My Orders Last 24 Hours: My Active Orders 09/15/21 15:52 Up to Chair [RC] BID 09/15/21 Dinner Mechanical Soft Diet [DIET] 09/16/21 06:40 PROCALCITONIN [REF] Routine 09/16/21 Lunch Consistent Carbohydrate Diet [DIET] - Plan Plan:: Patient is an 89-year-old female with a history of CHF, hypertension, diabetes, and atrial fibrillation who was brought to the ER from a residential due to generalized weakness, confusion and fever. Assessment and plan AMSresolved Etiologies include sepsis/infection, dehydration, metabolic events No focal neurological deficits Closely monitor Speech therapy today cleared her for mechanical soft diet. Early sepsis 2nd to cellulitis of right leg Bacteremia: Called by nurse that there was a positive blood culture. Reviewed blood culture shows growth of 1 out of 2 sets positive of Staphylococcus lugdunensis. I started her on nafcillin 2 g every 4 hours IV and stop ceftriaxone. Ordered echocardiogram for Sunday morning and will repeat blood cultures tomorrow. CRP 2.8 Blood culture positive of Staphylococcus lugdunensis Cellulitis, right leg and foot Had great toe nails removed lsat week US doppler to rule out a DVT DC ceftriaxone 1 g IV twice daily and switch to nafcillin Blood cultures as above Acute hypoxic respiratory failureresolved Oxygen saturation 88% in the ER Etiology unknown Pulse ox Oxygen therapy to keep oxygen saturation greater than 94%on room air HOME on CKD, creatinine 1.0 on 12/06/2018, creatinine has been around 2.0 over the past 2-3 years. Creatinine 2.6-->2.1 Avoid nephrotoxic meds Repeat renal function tomorrow DM type 2 on insulin degludec 20units daily N.p.o. due to history of dysphagia I will order Lantus 10 units daily Insulin sliding scales Blood sugars between low 100s 200s HTN Restart on Sunday metoprolol succinate 50mg daily that has been on hold Hydralazine as needed CHF, NYHA class II Restarted on Sunday lasix 20mg daily and spironolactone 50mg daily Intake and output Repeat electrolytes in the morning Atrial fibrillation Heart rate is controlled Restart on Sunday metoprolol has been on hold History of GI bleeding. Not on anticoagulation Hx of GI bleeding Continue home medication Plavix Repeat a CBC in morning hx of dysphagia N.p.o. Speech pathology consult Generalized weakness PT OT DVT prophylaxis: Heparin CODE STATUS: DNR/DNI. Discussed with the patient and her daughter who declined CPR and intubation Disposition: Length of stay greater than 96 hours secondary to positive blood cultures and need for IV antibiotics.
[2021-09-16] MEDS ORDERED: Nafcillin 2 GM Vial IVPUSH SCH (20:00)
[2021-09-16] MEDS: Insulin Glargine,Hum.Rec.Anlog 100 UNIT/ML 3 ML Pen SUBCUT SCH (21:44)
[2021-09-16] MEDS: Gabapentin 300 MG Cap PO SCH (21:55)
[2021-09-16] MEDS: Acetaminophen 325 MG Tab PO PRN (21:58)
[2021-09-17] MEDS: Oxacillin 2 GM in Sodium Chloride 0.9% 100 ML IV SCH ×7 (00:17→22:28)
[2021-09-17] MEDS: Heparin Sodium 5,000 Units/ML Vial SUBCUT SCH ×3 (04:24→21:06)
[2021-09-17] MEDS: Pantoprazole 40 MG Tab.CR PO SCH (05:01)
--- NOTE | 2021-09-17 07:42 | PCM.PN ---
- General Info Date of Service: 09/17/21 Admission Dx/Problem (Free Text): Admission Diagnosis/Problem Admission Diagnosis/Problem Sepsis Subjective Update: The patient is an 89-year-old lady who lives in a senior living facility was admitted secondary to likely sepsis through the emergency department. She was admitted to hospitalization on September 14, 2021. The patient today says that she feels good. She has been tolerating her diabetic diet. She is currently awaiting placement with return to her senior living facility. Functional Status: Reports: Pain Controlled, Tolerating Diet. Denies: New Symptoms - Review of Systems General: Reports: No Symptoms HEENT: Reports: No Symptoms Pulmonary: Reports: No Symptoms Cardiovascular: Reports: No Symptoms Gastrointestinal: Reports: No Symptoms Genitourinary: Reports: No Symptoms Musculoskeletal: Reports: No Symptoms Skin: Reports: No Symptoms Neurological: Reports: No Symptoms Psychiatric: Reports: No Symptoms - Patient Data Vitals - Most Recent: Last Vital Signs Temp 37.1 C 09/17/21 04:59 Pulse 92 09/17/21 04:59 Resp 20 09/17/21 04:59 BP 109/56 L 09/17/21 04:59 Pulse Ox 91 L 09/17/21 04:59 Weight - Most Recent: 70.851 kg I&O - Last 24 Hours: Intake & Output 09/16/21 09/17/21 09/17/21 22:59 06:59 14:59 Intake Total 300 100 Output Total 500 Balance -200 100 Lab Results Last 24 Hours: Laboratory Results - last 24 hr 09/16/21 09/16/21 09/16/21 Range/Units 06:40 11:21 15:54 WBC (3.98-10.04) K/mm3 RBC (3.98-5.22) M/mm3 Hgb (11.2-15.7) gm/dl Hct (34.1-44.9) % MCV (79.4-94.8) fl MCH (25.6-32.2) pg MCHC (32.2-35.5) g/dl RDW Std Deviation (36.4-46.3) fL Plt Count (182-369) K/mm3 MPV (9.4-12.3) fl Neut % (Auto) (34.0-71.1) % Lymph % (Auto) (19.3-51.7) % Meigs % (Auto) (4.7-12.5) % Eos % (Auto) (0.7-5.8) Baso % (Auto) (0.1-1.2) % Neut # (Auto) (1.56-6.13) K/mm3 Lymph # (Auto) (1.18-3.74) K/mm3 Meigs # (Auto) (0.24-0.36) K/mm3 Eos # (Auto) (0.04-0.36) K/mm3 Baso # (Auto) (0.01-0.08) K/mm3 Sodium (136-145) mEq/L Potassium (3.5-5.1) mEq/L Chloride (98-107) mEq/L Carbon Dioxide (21-32) mEq/L Anion Gap (5-15) BUN (7-18) mg/dL Creatinine (0.55-1.02) mg/dL Est Cr Clr Drug Dosing mL/min Estimated GFR (MDRD) (>60) mL/min BUN/Creatinine Ratio (14-18) Glucose (70-99) mg/dL POC Glucose 209 H 234 H (70-99) mg/dL Calcium (8.5-10.1) mg/dL Total Bilirubin (0.2-1.0) mg/dL AST (15-37) U/L ALT (14-59) U/L Alkaline Phosphatase (46-116) U/L Total Protein (6.4-8.2) g/dl Albumin (3.4-5.0) g/dl Globulin gm/dL Albumin/Globulin Ratio (1-2) Procalcitonin 0.24 H ng/mL 09/17/21 09/17/21 09/17/21 Range/Units 05:13 05:13 06:18 WBC 10.42 H (3.98-10.04) K/mm3 RBC 4.13 (3.98-5.22) M/mm3 Hgb 12.1 (11.2-15.7) gm/dl Hct 38.1 (34.1-44.9) % MCV 92.3 (79.4-94.8) fl MCH 29.3 (25.6-32.2) pg MCHC 31.8 L (32.2-35.5) g/dl RDW Std Deviation 54.5 H (36.4-46.3) fL Plt Count 229 (182-369) K/mm3 MPV 10.2 (9.4-12.3) fl Neut % (Auto) 67.5 (34.0-71.1) % Lymph % (Auto) 20.6 (19.3-51.7) % Meigs % (Auto) 8.3 (4.7-12.5) % Eos % (Auto) 2.8 (0.7-5.8) Baso % (Auto) 0.3 (0.1-1.2) % Neut # (Auto) 7.04 H (1.56-6.13) K/mm3 Lymph # (Auto) 2.15 (1.18-3.74) K/mm3 Meigs # (Auto) 0.86 H (0.24-0.36) K/mm3 Eos # (Auto) 0.29 (0.04-0.36) K/mm3 Baso # (Auto) 0.03 (0.01-0.08) K/mm3 Sodium 142 (136-145) mEq/L Potassium 4.2 (3.5-5.1) mEq/L Chloride 107 (98-107) mEq/L Carbon Dioxide 23 (21-32) mEq/L Anion Gap 16.2 H (5-15) BUN 19 H (7-18) mg/dL Creatinine 1.9 H (0.55-1.02) mg/dL Est Cr Clr Drug Dosing 15.15 mL/min Estimated GFR (MDRD) 25 (>60) mL/min BUN/Creatinine Ratio 10.0 L (14-18) Glucose 175 H (70-99) mg/dL POC Glucose 169 H (70-99) mg/dL Calcium 8.5 (8.5-10.1) mg/dL Total Bilirubin 0.4 (0.2-1.0) mg/dL AST 12 L (15-37) U/L ALT 14 (14-59) U/L Alkaline Phosphatase 86 (46-116) U/L Total Protein 6.5 (6.4-8.2) g/dl Albumin 3.3 L (3.4-5.0) g/dl Globulin 3.2 gm/dL Albumin/Globulin Ratio 1.0 (1-2) Procalcitonin ng/mL Octavio Results Last 24 Hours: Microbiology 09/14/21 16:40 Bacteria Detection (PCR) - Final Blood - Venous - Lab Draw 09/14/21 16:40 Blood Culture - Preliminary Blood - Venous - Lab Draw Staphylococcus Lugdunensis 09/14/21 16:25 Blood Culture - Preliminary Blood - Venous - Lab Draw Med Orders - Current: Current Medications Acetaminophen (Acetaminophen 650 Mg Supp) 650 mg RECTAL Q6H PRN PRN Reason: Pain (mild 1-3) Acetaminophen (Acetaminophen 325 Mg Tab) 650 mg PO Q4H PRN PRN Reason: Pain Last Admin: 09/16/21 21:58 Dose: 650 mg Documented by: Albuterol/Ipratropium (Albuterol/Ipratropium 3.0-0.5 Mg/3 Ml Neb Soln) 3 ml NEB Q4H PRN PRN Reason: Shortness Of Breath/wheezing Bisacodyl (Bisacodyl 5 Mg Tab) 10 mg PO DAILY PRN PRN Reason: Constipation Last Admin: 09/14/21 20:26 Dose: 5 mg Documented by: Calcium Carbonate/Glycine (Calcium Carbonate 500 Mg Tab.Chew) 250 mg PO Q4H PRN PRN Reason: Heartburn Clopidogrel Bisulfate (Clopidogrel 75 Mg Tab) 75 mg PO DAILY [facility] Last Admin: 09/16/21 08:29 Dose: 75 mg Documented by: Furosemide (Furosemide 40 Mg Tab) 20 mg PO DAILY [facility] Gabapentin (Gabapentin 300 Mg Cap) 300 mg PO BEDTIME [facility] Last Admin: 09/16/21 21:55 Dose: 300 mg Documented by: Heparin Sodium (Porcine) (Heparin Sodium 5,000 Units/Ml Vial) 5,000 units SUBCUT Q8H [facility] Last Admin: 09/17/21 04:24 Dose: Not Given Documented by: Promethazine HCl 6.25 mg/ (Sodium Chloride) 50.25 mls @ 100 mls/hr IV Q6H PRN PRN Reason: Nausea/Vomiting Oxacillin Sodium 2 gm/ Sodium (Chloride) 100 mls @ 100 mls/hr IV Q4H [facility] Last Admin: 09/17/21 05:11 Dose: 100 mls/hr Documented by: Insulin Glargine (Insulin Glargine,Hum.Rec.Anlog 100 Unit/Ml 3 Ml Pen) 10 unit SUBCUT BEDTIME [facility] Last Admin: 09/16/21 21:44 Dose: Not Given Documented by: Insulin Human Lispro (Insulin Lispro 100 Unit/Ml 3 Ml Kwikpen) 0 unit SUBCUT QIDACANDBED [facility]; Protocol Last Admin: 09/16/21 21:44 Dose: Not Given Documented by: Metoprolol Succinate (Metoprolol Succinate 50 Mg Tab.Er) 50 mg PO DAILY [facility] Oxycodone HCl (Oxycodone 5 Mg Tab) 5 mg PO Q6H PRN PRN Reason: Pain (moderate 4-6) Pantoprazole Sodium (Pantoprazole 40 Mg Tab.Cr) 40 mg PO ACBREAKFAST [facility] Last Admin: 09/17/21 05:01 Dose: 40 mg Documented by: Polyethylene Glycol (Polyethylene Glycol 3350 Powder 17 Gm Packet) 17 gm PO DAILY PRN PRN Reason: Constipation Sodium Chloride (Sodium Chloride 0.9% 10 Ml Syringe) 10 ml FLUSH ASDIRECTED PRN PRN Reason: Keep Vein Open Last Admin: 09/14/21 16:50 Dose: 10 ml Documented by: Spironolactone (Spironolactone 25 Mg Tab) 50 mg PO DAILY [facility] Discontinued Medications Acetaminophen (Acetaminophen 325 Mg Tab) 975 mg PO NOW ONE Stop: 09/14/21 16:13 Last Admin: 09/14/21 16:50 Dose: 975 mg Documented by: Gabapentin (Gabapentin 300 Mg Cap) 600 mg PO ONETIME ONE Stop: 09/14/21 19:46 Last Admin: 09/14/21 20:22 Dose: 600 mg Documented by: Sodium Chloride (Normal Saline) 1,000 mls @ 125 mls/hr IV ASDIRECTED [facility] Last Admin: 09/14/21 16:49 Dose: 125 mls/hr Documented by: Ceftriaxone Sodium 2 gm/ (Sodium Chloride) 100 mls @ 200 mls/hr IV ONETIME ONE Stop: 09/14/21 16:42 Last Admin: 09/14/21 16:50 Dose: 200 mls/hr Documented by: Lactated Ringer's (Ringers, Lactated) 1,000 mls @ 100 mls/hr IV ASDIRECTED [facility] Lactated Ringer's (Ringers, Lactated) 1,000 mls @ 50 mls/hr IV ASDIRECTED [facility] Last Admin: 09/14/21 20:47 Dose: 50 mls/hr Documented by: Ceftriaxone Sodium 1 gm/ (Sodium Chloride) 100 mls @ 200 mls/hr IV Q24H [facility] Ceftriaxone Sodium 1 gm/ (Sodium Chloride) 100 mls @ 200 mls/hr IV Q12H [facility] Last Admin: 09/16/21 21:39 Dose: Not Given Documented by: Insulin Glargine (Insulin Glargine,Hum.Rec.Anlog 100 Unit/Ml 3 Ml Pen) 10 unit SUBCUT DAILY [facility] Last Admin: 09/15/21 10:28 Dose: Not Given Documented by: Morphine Sulfate (Morphine 2 Mg/Ml Syringe) 1 mg IVPUSH Q4H PRN PRN Reason: Pain (severe 7-10) Stop: 09/15/21 19:06 - Exam Quality Assessment: Supplemental Oxygen, DVT Prophylaxis General: Alert, Oriented, Cooperative, No Acute Distress HEENT: Pupils Equal, Pupils Reactive, EOMI, Mucous Membr. Moist/[place] Neck: Supple, Trachea Midline Lungs: Clear to Auscultation, Normal Respiratory Effort Cardiovascular: Regular Rate, Regular Rhythm GI/Abdominal Exam: Normal Bowel Sounds, Soft, No Distention Back Exam: Normal Inspection, Full Range of Motion Extremities: Normal Inspection, No Pedal Edema Skin: Warm, Dry, Intact Wound/Incisions: Dressing Dry and Intact Neurological: No New Focal Deficit Psy/Mental Status: Alert, Normal Affect, Normal Mood - Patient Data Lab Results Last 24 hrs: Laboratory Results - last 24 hr 09/16/21 09/16/21 09/16/21 Range/Units 06:40 11:21 15:54 WBC (3.98-10.04) K/mm3 RBC (3.98-5.22) M/mm3 Hgb (11.2-15.7) gm/dl Hct (34.1-44.9) % MCV (79.4-94.8) fl MCH (25.6-32.2) pg MCHC (32.2-35.5) g/dl RDW Std Deviation (36.4-46.3) fL Plt Count (182-369) K/mm3 MPV (9.4-12.3) fl Neut % (Auto) (34.0-71.1) % Lymph % (Auto) (19.3-51.7) % Meigs % (Auto) (4.7-12.5) % Eos % (Auto) (0.7-5.8) Baso % (Auto) (0.1-1.2) % Neut # (Auto) (1.56-6.13) K/mm3 Lymph # (Auto) (1.18-3.74) K/mm3 Meigs # (Auto) (0.24-0.36) K/mm3 Eos # (Auto) (0.04-0.36) K/mm3 Baso # (Auto) (0.01-0.08) K/mm3 Sodium (136-145) mEq/L Potassium (3.5-5.1) mEq/L Chloride (98-107) mEq/L Carbon Dioxide (21-32) mEq/L Anion Gap (5-15) BUN (7-18) mg/dL Creatinine (0.55-1.02) mg/dL Est Cr Clr Drug Dosing mL/min Estimated GFR (MDRD) (>60) mL/min BUN/Creatinine Ratio (14-18) Glucose (70-99) mg/dL POC Glucose 209 H 234 H (70-99) mg/dL Calcium (8.5-10.1) mg/dL Total Bilirubin (0.2-1.0) mg/dL AST (15-37) U/L ALT (14-59) U/L Alkaline Phosphatase (46-116) U/L Total Protein (6.4-8.2) g/dl Albumin (3.4-5.0) g/dl Globulin gm/dL Albumin/Globulin Ratio (1-2) Procalcitonin 0.24 H ng/mL 09/17/21 09/17/21 09/17/21 Range/Units 05:13 05:13 06:18 WBC 10.42 H (3.98-10.04) K/mm3 RBC 4.13 (3.98-5.22) M/mm3 Hgb 12.1 (11.2-15.7) gm/dl Hct 38.1 (34.1-44.9) % MCV 92.3 (79.4-94.8) fl MCH 29.3 (25.6-32.2) pg MCHC 31.8 L (32.2-35.5) g/dl RDW Std Deviation 54.5 H (36.4-46.3) fL Plt Count 229 (182-369) K/mm3 MPV 10.2 (9.4-12.3) fl Neut % (Auto) 67.5 (34.0-71.1) % Lymph % (Auto) 20.6 (19.3-51.7) % Meigs % (Auto) 8.3 (4.7-12.5) % Eos % (Auto) 2.8 (0.7-5.8) Baso % (Auto) 0.3 (0.1-1.2) % Neut # (Auto) 7.04 H (1.56-6.13) K/mm3 Lymph # (Auto) 2.15 (1.18-3.74) K/mm3 Meigs # (Auto) 0.86 H (0.24-0.36) K/mm3 Eos # (Auto) 0.29 (0.04-0.36) K/mm3 Baso # (Auto) 0.03 (0.01-0.08) K/mm3 Sodium 142 (136-145) mEq/L Potassium 4.2 (3.5-5.1) mEq/L Chloride 107 (98-107) mEq/L Carbon Dioxide 23 (21-32) mEq/L Anion Gap 16.2 H (5-15) BUN 19 H (7-18) mg/dL Creatinine 1.9 H (0.55-1.02) mg/dL Est Cr Clr Drug Dosing 15.15 mL/min Estimated GFR (MDRD) 25 (>60) mL/min BUN/Creatinine Ratio 10.0 L (14-18) Glucose 175 H (70-99) mg/dL POC Glucose 169 H (70-99) mg/dL Calcium 8.5 (8.5-10.1) mg/dL Total Bilirubin 0.4 (0.2-1.0) mg/dL AST 12 L (15-37) U/L ALT 14 (14-59) U/L Alkaline Phosphatase 86 (46-116) U/L Total Protein 6.5 (6.4-8.2) g/dl Albumin 3.3 L (3.4-5.0) g/dl Globulin 3.2 gm/dL Albumin/Globulin Ratio 1.0 (1-2) Procalcitonin ng/mL Result Diagrams: 10/23/21 05:13 09/17/21 05:13 Octavio Results Last 24 hrs: Microbiology 09/14/21 16:40 Bacteria Detection (PCR) - Final Blood - Venous - Lab Draw 09/14/21 16:40 Blood Culture - Preliminary Blood - Venous - Lab Draw Staphylococcus Lugdunensis 09/14/21 16:25 Blood Culture - Preliminary Blood - Venous - Lab Draw Sepsis Event Note - Evaluation Sepsis Screening Result: No Definite Risk - Focused Exam Vital Signs: Vital Signs Temp Pulse Resp BP Pulse Ox 09/17/21 04:59 37.1 C 92 20 109/56 L 91 L 09/16/21 23:27 36.8 C 74 16 131/38 L 93 L 09/16/21 21:55 36.9 C 87 20 97 - Problem List & Annotations (1) Cellulitis of right leg SNOMED Code(s): 714373056 Code(s): L03.115 - CELLULITIS OF RIGHT LOWER LIMB Status: Acute Current Visit: Yes (2) Sepsis SNOMED Code(s): 97226518 Code(s): A41.9 - SEPSIS, UNSPECIFIED ORGANISM Status: Resolved Priority: High Current Visit: Yes Qualifiers: Sepsis type: sepsis due to unspecified organism Sepsis acute organ dysfunction status: unspecified Qualified Code(s): A41.9 - Sepsis, unspecified organism (3) Hyperglycemia due to type 2 diabetes mellitus SNOMED Code(s): 965829866879565, 611663632485652 Code(s): E11.65 - TYPE 2 DIABETES MELLITUS WITH HYPERGLYCEMIA Status: Chron ic Priority: High Current Visit: Yes Qualifiers: 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 Assessment and plan AMSresolved Etiologies include sepsis/infection, dehydration, metabolic events No focal neurological deficits Closely monitor Speech therapy today cleared her for mechanical soft diet. Early sepsis 2nd to cellulitis of right leg Bacteremia: Called by nurse that there was a positive blood culture. Reviewed blood culture shows growth of 1 out of 2 sets positive of Staphylococcus lugdunensis. I started her on nafcillin 2 g every 4 hours IV and stop ceftriaxone. Ordered echocardiogram for Sunday morning and will repeat blood cultures tomorrow. CRP 2.8 Blood culture positive of Staphylococcus lugdunensis Cellulitis, right leg and foot Had great toe nails removed lsat week US doppler to rule out a DVT DC ceftriaxone 1 g IV twice daily and switch to nafcillin Blood cultures as above Acute hypoxic respiratory failureresolved Oxygen saturation 88% in the ER Etiology unknown Pulse ox Oxygen therapy to keep oxygen saturation greater than 94%on room air HOME on CKD, creatinine 1.0 on 12/06/2018, creatinine has been around 2.0 over the past 2-3 years. Creatinine 2.6-->2.1 Avoid nephrotoxic meds Repeat renal function tomorrow DM type 2 on insulin degludec 20units daily N.p.o. due to history of dysphagia I will order Lantus 10 units daily Insulin sliding scales Blood sugars between low 100s 200s HTN Restart on Sunday metoprolol succinate 50mg daily that has been on hold Hydralazine as needed CHF, NYHA class II Restarted on Sunday lasix 20mg daily and spironolactone 50mg daily Intake and output Repeat electrolytes in the morning Atrial fibrillation Heart rate is controlled Restart on Sunday metoprolol has been on hold History of GI bleeding. Not on anticoagulation Hx of GI bleeding Continue home medication Plavix Repeat a CBC in morning hx of dysphagia N.p.o. Speech pathology consult Generalized weakness PT OT DVT prophylaxis: Heparin CODE STATUS: DNR/DNI. Discussed with the patient and her daughter who declined CPR and intubation Disposition: Length of stay greater than 96 hours secondary to positive blood cultures and need for IV antibiotics. 09/17/2021 The patient is an 89-year-old lady who is doing better today. She is awaiting [facility] placement. She had positive blood cultures which were growing Staphylococcus lugdunensis and is currently pending a 2D echocardiogram to rule out vegetations. For now the patient will be retained in hospitalization. She has diabetes mellitus type 2 and as a result of this she will be alone current insulin sliding scale may have to adjust her long-acting as needed. Diabetic diet as tolerated. She had been in the past refusing testing although she did have repeat laboratory cultures completed. The patient's vital signs will be monitored and her antihypertensive medications will also be adjusted as necessary. The patient has had some resolution of her respiratory failure and her oxygen saturations to be kept around 92%. Repeat laboratory studies have been ordered for the morning. The patient has been encouraged to ambulate. The patient is also anticoagulated with the use of heparin and Plavix. We will monitor CBC for bleeding.
[2021-09-17] MEDS: Insulin Lispro 100 Unit/ML 3 ML KwikPen SUBCUT SCH ×4 (09:26→21:18)
[2021-09-17] MEDS: Spironolactone 25 MG Tab PO SCH (09:27)
[2021-09-17] MEDS: Furosemide 40 MG Tab PO SCH (09:27)
[2021-09-17] MEDS: Metoprolol Succinate 50 MG Tab.ER PO SCH (09:27)
[2021-09-17] MEDS: Clopidogrel 75 MG Tab PO SCH (09:27)
[2021-09-17] MEDS: Gabapentin 300 MG Cap PO SCH (21:06)
[2021-09-17] MEDS: Insulin Glargine,Hum.Rec.Anlog 100 UNIT/ML 3 ML Pen SUBCUT SCH (21:07)
[2021-09-18] MEDS: Oxacillin 2 GM in Sodium Chloride 0.9% 100 ML IV SCH ×3 (01:58→11:20)
[2021-09-18] MEDS: Heparin Sodium 5,000 Units/ML Vial SUBCUT SCH ×3 (04:45→21:29)
[2021-09-18] MEDS: Pantoprazole 40 MG Tab.CR PO SCH (06:11)
[2021-09-18] MEDS: Clopidogrel 75 MG Tab PO SCH (08:47)
[2021-09-18] MEDS: Metoprolol Succinate 50 MG Tab.ER PO SCH (08:47)
[2021-09-18] MEDS: Furosemide 40 MG Tab PO SCH (08:53)
--- NOTE | 2021-09-18 09:03 | PCM.PN ---
- General Info Date of Service: 09/18/21 Admission Dx/Problem (Free Text): Admission Diagnosis/Problem Admission Diagnosis/Problem Sepsis Subjective Update: The patient is an 89-year-old lady who was admitted on September 14, 2021 due to possible sepsis from a lower extremity infection. The patient has been somewhat angry at times and has been refusing IV antibiotics. Today the patient says that she wants to go home. She lives in a senior care facility. The patient has been tolerating her diet. She is somewhat tearful today. Functional Status: Reports: Pain Controlled. Denies: New Symptoms - Review of Systems General: Reports: Weakness, Fatigue HEENT: Reports: No Symptoms Pulmonary: Reports: No Symptoms Cardiovascular: Reports: No Symptoms Gastrointestinal: Reports: No Symptoms Genitourinary: Reports: No Symptoms Musculoskeletal: Reports: No Symptoms Skin: Reports: No Symptoms Neurological: Reports: No Symptoms Psychiatric: Reports: No Symptoms - Patient Data Vitals - Most Recent: Last Vital Signs Temp 36.4 C 09/18/21 03:41 Pulse 82 09/18/21 08:47 Resp 19 09/18/21 03:41 BP 124/82 09/18/21 08:47 Pulse Ox 94 L 09/18/21 08:33 Weight - Most Recent: 71.985 kg I&O - Last 24 Hours: Intake & Output 09/17/21 09/18/21 09/18/21 22:59 06:59 14:59 Intake Total 1350 450 Output Total 970 400 Balance 380 50 Lab Results Last 24 Hours: Laboratory Results - last 24 hr 09/17/21 09/17/21 09/17/21 Range/Units 11:28 17:14 21:05 POC Glucose 294 H 225 H 203 H (70-99) mg/dL 09/18/21 Range/Units 08:03 POC Glucose 244 H (70-99) mg/dL Octavio Results Last 24 Hours: Microbiology 09/14/21 16:40 Blood Culture - Preliminary Blood - Venous - Lab Draw Staphylococcus Lugdunensis Med Orders - Current: Current Medications Acetaminophen (Acetaminophen 650 Mg Supp) 650 mg RECTAL Q6H PRN PRN Reason: Pain (mild 1-3) Acetaminophen (Acetaminophen 325 Mg Tab) 650 mg PO Q4H PRN PRN Reason: Pain Last Admin: 09/16/21 21:58 Dose: 650 mg Documented by: Albuterol/Ipratropium (Albuterol/Ipratropium 3.0-0.5 Mg/3 Ml Neb Soln) 3 ml NEB Q4H PRN PRN Reason: Shortness Of Breath/wheezing Bisacodyl (Bisacodyl 5 Mg Tab) 10 mg PO DAILY PRN PRN Reason: Constipation Last Admin: 09/14/21 20:26 Dose: 5 mg Documented by: Calcium Carbonate/Glycine (Calcium Carbonate 500 Mg Tab.Chew) 250 mg PO Q4H PRN PRN Reason: Heartburn Clopidogrel Bisulfate (Clopidogrel 75 Mg Tab) 75 mg PO DAILY [facility] Last Admin: 09/18/21 08:47 Dose: 75 mg Documented by: Furosemide (Furosemide 40 Mg Tab) 20 mg PO DAILY [facility] Last Admin: 09/17/21 09:27 Dose: 20 mg Documented by: Gabapentin (Gabapentin 300 Mg Cap) 300 mg PO BEDTIME [facility] Last Admin: 09/17/21 21:06 Dose: 300 mg Documented by: Heparin Sodium (Porcine) (Heparin Sodium 5,000 Units/Ml Vial) 5,000 units SUBCUT Q8H [facility] Last Admin: 09/18/21 04:45 Dose: Not Given Documented by: Promethazine HCl 6.25 mg/ (Sodium Chloride) 50.25 mls @ 100 mls/hr IV Q6H PRN PRN Reason: Nausea/Vomiting Oxacillin Sodium 2 gm/ Sodium (Chloride) 100 mls @ 100 mls/hr IV Q4H [facility] Last Admin: 09/18/21 08:23 Dose: Not Given Documented by: Insulin Glargine (Insulin Glargine,Hum.Rec.Anlog 100 Unit/Ml 3 Ml Pen) 10 unit SUBCUT BEDTIME [facility] Last Admin: 09/17/21 21:07 Dose: 10 units Documented by: Insulin Human Lispro (Insulin Lispro 100 Unit/Ml 3 Ml Kwikpen) 0 unit SUBCUT QIDACANDBED [facility]; Protocol Last Admin: 09/17/21 21:18 Dose: 4 units Documented by: Metoprolol Succinate (Metoprolol Succinate 50 Mg Tab.Er) 50 mg PO DAILY [facility] Last Admin: 09/18/21 08:47 Dose: 50 mg Documented by: Oxycodone HCl (Oxycodone 5 Mg Tab) 5 mg PO Q6H PRN PRN Reason: Pain (moderate 4-6) Pantoprazole Sodium (Pantoprazole 40 Mg Tab.Cr) 40 mg PO ACBREAKFAST [facility] Last Admin: 09/18/21 06:11 Dose: 40 mg Documented by: Polyethylene Glycol (Polyethylene Glycol 3350 Powder 17 Gm Packet) 17 gm PO DAILY PRN PRN Reason: Constipation Sodium Chloride (Sodium Chloride 0.9% 10 Ml Syringe) 10 ml FLUSH ASDIRECTED PRN PRN Reason: Keep Vein Open Last Admin: 09/14/21 16:50 Dose: 10 ml Documented by: Spironolactone (Spironolactone 25 Mg Tab) 50 mg PO DAILY [facility] Last Admin: 09/17/21 09:27 Dose: 50 mg Documented by: Discontinued Medications Acetaminophen (Acetaminophen 325 Mg Tab) 975 mg PO NOW ONE Stop: 09/14/21 16:13 Last Admin: 09/14/21 16:50 Dose: 975 mg Documented by: Gabapentin (Gabapentin 300 Mg Cap) 600 mg PO ONETIME ONE Stop: 09/14/21 19:46 Last Admin: 09/14/21 20:22 Dose: 600 mg Documented by: Sodium Chloride (Normal Saline) 1,000 mls @ 125 mls/hr IV ASDIRECTED [facility] Last Admin: 09/14/21 16:49 Dose: 125 mls/hr Documented by: Ceftriaxone Sodium 2 gm/ (Sodium Chloride) 100 mls @ 200 mls/hr IV ONETIME ONE Stop: 09/14/21 16:42 Last Admin: 09/14/21 16:50 Dose: 200 mls/hr Documented by: Lactated Ringer's (Ringers, Lactated) 1,000 mls @ 100 mls/hr IV ASDIRECTED KANNAN Lactated Ringer's (Ringers, Lactated) 1,000 mls @ 50 mls/hr IV ASDIRECTED [facility] Last Admin: 09/14/21 20:47 Dose: 50 mls/hr Documented by: Ceftriaxone Sodium 1 gm/ (Sodium Chloride) 100 mls @ 200 mls/hr IV Q24H [facility]ANNA[facility] Ceftriaxone Sodium 1 gm/ (Sodium Chloride) 100 mls @ 200 mls/hr IV Q12H [facility] Last Admin: 09/16/21 21:39 Dose: Not Given Documented by: Insulin Glargine (Insulin Glargine,Hum.Rec.Anlog 100 Unit/Ml 3 Ml Pen) 10 unit SUBCUT DAILY [facility] Last Admin: 09/15/21 10:28 Dose: Not Given Documented by: Morphine Sulfate (Morphine 2 Mg/Ml Syringe) 1 mg IVPUSH Q4H PRN PRN Reason: Pain (severe 7-10) Stop: 09/15/21 19:06 - Exam Quality Assessment: DVT Prophylaxis. No: Supplemental Oxygen General: Alert, Oriented, Cooperative, No Acute Distress HEENT: Pupils Equal, Pupils Reactive, EOMI Neck: Supple, Trachea Midline Lungs: Clear to Auscultation, Normal Respiratory Effort Cardiovascular: Regular Rate, Regular Rhythm GI/Abdominal Exam: Normal Bowel Sounds, Soft, No Distention (Female) Exam: Deferred Back Exam: Normal Inspection, Full Range of Motion Extremities: Normal Inspection, No Pedal Edema Skin: Warm, Dry, Intact Neurological: No New Focal Deficit Psy/Mental Status: Alert, Depressed - Patient Data Lab Results Last 24 hrs: Laboratory Results - last 24 hr 09/17/21 09/17/21 09/17/21 Range/Units 11:28 17:14 21:05 POC Glucose 294 H 225 H 203 H (70-99) mg/dL 09/18/21 Range/Units 08:03 POC Glucose 244 H (70-99) mg/dL Result Diagrams: 09/17/21 05:13 09/17/21 05:13 Octavio Results Last 24 hrs: Microbiology 09/14/21 16:40 Blood Culture - Preliminary Blood - Venous - Lab Draw Staphylococcus Lugdunensis Sepsis Event Note - Evaluation Sepsis Screening Result: No Definite Risk - Focused Exam Vital Signs: Vital Signs Temp Pulse Resp BP Pulse Ox Pulse Ox 09/18/21 08:47 82 124/82 09/18/21 08:33 94 L 09/18/21 03:41 36.4 C 65 19 129/64 90 L 09/18/21 00:00 69 91 L 09/17/21 23:56 36.5 C 71 20 133/99 H 83 L 09/17/21 22:25 37.0 C 63 20 95/67 93 L - Problem List & Annotations (1) Cellulitis of right leg SNOMED Code(s): 431559474 Code(s): L03.115 - CELLULITIS OF RIGHT LOWER LIMB Status: Acute Current Visit: Yes (2) Sepsis SNOMED Code(s): 92457706 Code(s): A41.9 - SEPSIS, UNSPECIFIED ORGANISM Status: Resolved Priority: High Current Visit: Yes Qualifiers: Sepsis type: sepsis due to unspecified organism Sepsis acute organ dysfunction status: unspecified Qualified Code(s): A41.9 - Sepsis, unspecified organism (3) Hyperglycemia due to type 2 diabetes mellitus SNOMED Code(s): 845555883755629, 081535494675003 Code(s): E11.65 - TYPE 2 DIABETES MELLITUS WITH HYPERGLYCEMIA Status: Chronic Priority: High Current Visit: Yes Qualifiers: Diabetes mellitus terminal press operator insulin use: with long-term use Qualified Code(s): E11.65 - Type 2 diabetes mellitus with hyperglycemia; Z79.4 - intermediate (current) use of insulin (4) CKD (chronic kidney disease) stage 4, GFR 15-29 ml/min SNOMED Code(s): 111888726 Code(s): N18.4 - CHRONIC KIDNEY DISEASE, STAGE 4 (SEVERE) Status: Chronic Priority: Medium Current Visit: Yes - Problem List Review Problem List Initiated/Reviewed/Updated: Yes - My Orders Last 24 Hours: My Active Orders 09/18/21 05:09 EKG 12 Lead [EK] Stat - Plan Plan:: Patient is an 89-year-old female with a history of CHF, hypertension, diabetes, and atrial fibrillation who was brought to the ER from a halfway due to generalized weakness, confusion and fever. Assessment and plan AMSresolved Etiologies include sepsis/infection, dehydration, metabolic events No focal neurological deficits Closely monitor Speech therapy today cleared her for mechanical soft diet. Early sepsis 2nd to cellulitis of right leg Bacteremia: Called by nurse that there was a positive blood culture. Reviewed blood culture shows growth of 1 out of 2 sets positive of Staphylococcus lugdunensis. I started her on nafcillin 2 g every 4 hours IV and stop ceftriaxone. Ordered echocardiogram for Sunday morning and will repeat blood cultures tomorrow. CRP 2.8 Blood culture positive of Staphylococcus lugdunensis Cellulitis, right leg and foot Had great toe nails removed lsat week US doppler to rule out a DVT DC ceftriaxone 1 g IV twice daily and switch to nafcillin Blood cultures as above Acute hypoxic respiratory failureresolved Oxygen saturation 88% in the ER Etiology unknown Pulse ox Oxygen therapy to keep oxygen saturation greater than 94%on room air HOME on CKD, creatinine 1.0 on 12/06/2018, creatinine has been around 2.0 over the past 2-3 years. Creatinine 2.6-->2.1 Avoid nephrotoxic meds Repeat renal function tomorrow DM type 2 on insulin degludec 20units daily N.p.o. due to history of dysphagia I will order Lantus 10 units daily Insulin sliding scales Blood sugars between low 100s 200s HTN Restart on Sunday metoprolol succinate 50mg daily that has been on hold Hydralazine as needed CHF, NYHA class II Restarted on Sunday lasix 20mg daily and spironolactone 50mg daily Intake and output Repeat electrolytes in the morning Atrial fibrillation Heart rate is controlled Restart on Sunday metoprolol has been on hold History of GI bleeding. Not on anticoagulation Hx of GI bleeding Continue home medication Plavix Repeat a CBC in morning hx of dysphagia N.p.o. Speech pathology consult Generalized weakness PT OT DVT prophylaxis: Heparin CODE STATUS: DNR/DNI. Discussed with the patient and her daughter who declined CPR and intubation Disposition: Length of stay greater than 96 hours secondary to positive blood cultures and need for IV antibiotics. 09/17/2021 The patient is an 89-year-old lady who is doing better today. She is awaiting halfway placement. She had positive blood cultures which were growing Staphylococcus lugdunensis and is currently pending a 2D echocardiogram to rule out vegetations. For now the patient will be retained in hospitalization. She has diabetes mellitus type 2 and as a result of this she will be alone current insulin sliding scale may have to adjust her long-acting as needed. Diabetic diet as tolerated. She had been in the past refusing testing although she did have repeat laboratory cultures completed. The patient's vital signs will be monitored and her antihypertensive medications will also be adjusted as necessary. The patient has had some resolution of her respiratory failure and her oxygen saturations to be kept around 92%. Repeat laboratory studies have been ordered for the morning. The patient has been encouraged to ambulate. The patient is also anticoagulated with the use of heparin and Plavix. We will monitor CBC for bleeding. 09/18/2021 The patient is an 89-year-old lady who has been refusing IV restarts. She says she is tired of being poked. The patient says that she is tired and just wants to go home. The patient is currently pending a 2D echocardiogram. The patient will be retained in hospitalization. The patient's diabetic diet will continue for now. Repeat blood cultures are currently pending. Patient have repeat laboratory studies in the morning. The patient so far is on room air. We will continue to monitor her saturations. She is also anticoagulated with the use of heparin and Plavix. The patient should be appropriate for discharge back to senior care facility after completion of testing. Because of the patient's refusal to have IV started the patient will be started on oral equivalent consisting of Pen-Vee K 500 mg p.o. 4 times daily. This may change if 2D echocardiogram testing reveals endocarditis.
[2021-09-18] MEDS: Insulin Lispro 100 Unit/ML 3 ML KwikPen SUBCUT SCH ×4 (09:15→22:10)
[2021-09-18] MEDS: Spironolactone 25 MG Tab PO SCH ×2 (12:05→16:09)
[2021-09-18] MEDS: Penicillin V Potassium 500 MG Tab PO SCH ×3 (12:13→23:54)
[2021-09-18] MEDS: Gabapentin 300 MG Cap PO SCH (21:29)
[2021-09-18] MEDS: Insulin Glargine,Hum.Rec.Anlog 100 UNIT/ML 3 ML Pen SUBCUT SCH (22:12)
[2021-09-19] MEDS: Penicillin V Potassium 500 MG Tab PO SCH ×4 (05:58→23:44)
[2021-09-19] MEDS: Heparin Sodium 5,000 Units/ML Vial SUBCUT SCH ×3 (05:58→20:57)
[2021-09-19] MEDS: Pantoprazole 40 MG Tab.CR PO SCH (05:58)
[2021-09-19] MEDS ORDERED: Potassium Chloride 20 MEQ Tab.ER PO ONE (09:23)
[2021-09-19] MEDS: Metoprolol Succinate 50 MG Tab.ER PO SCH (09:37)
[2021-09-19] MEDS: Clopidogrel 75 MG Tab PO SCH (09:37)
[2021-09-19] MEDS: Furosemide 40 MG Tab PO SCH (09:37)
[2021-09-19] MEDS: Insulin Lispro 100 Unit/ML 3 ML KwikPen SUBCUT SCH ×4 (09:38→21:00)
[2021-09-19] MEDS: Spironolactone 25 MG Tab PO SCH (12:48)
--- NOTE | 2021-09-19 13:40 | PCM.PN ---
<JennChino M - Last Filed: 09/19/21 13:35> - General Info Date of Service: 09/19/21 Admission Dx/Problem (Free Text): Admission Diagnosis/Problem Admission Diagnosis/Problem Sepsis Subjective Update: Suma was in good spirits today on rounds. She is wanting to return to [facility] however we are waiting echocardiogram results. Functional Status: Reports: Pain Controlled, Tolerating Diet, Ambulating (With PT and OT) - Review of Systems General: Reports: No Symptoms HEENT: Reports: No Symptoms Pulmonary: Reports: No Symptoms Cardiovascular: Reports: No Symptoms Gastrointestinal: Reports: No Symptoms Genitourinary: Reports: No Symptoms Musculoskeletal: Reports: No Symptoms Skin: Reports: No Symptoms Neurological: Reports: Confusion (Patient does have a history of dementia) Psychiatric: Reports: No Symptoms - Patient Data Vitals - Most Recent: Last Vital Signs Temp 97.9 F 09/19/21 11:37 Pulse 61 09/19/21 11:37 Resp 20 09/19/21 11:37 BP 140/78 09/19/21 11:37 Pulse Ox 95 09/19/21 11:37 Weight - Most Recent: 71.327 kg I&O - Last 24 Hours: Intake & Output 09/18/21 09/19/21 09/19/21 22:59 06:59 14:59 Intake Total 1035 100 120 Output Total 300 0 Balance 735 100 120 Lab Results Last 24 Hours: Laboratory Results - last 24 hr 09/18/21 09/18/21 09/19/21 Range/Units 17:09 21:33 05:19 WBC 7.89 (3.98-10.04) K/mm3 RBC 3.74 L (3.98-5.22) M/mm3 Hgb 11.0 L (11.2-15.7) gm/dl Hct 34.4 (34.1-44.9) % MCV 92.0 (79.4-94.8) fl MCH 29.4 (25.6-32.2) pg MCHC 32.0 L (32.2-35.5) g/dl RDW Std Deviation 52.6 H (36.4-46.3) fL Plt Count 212 (182-369) K/mm3 MPV 10.2 (9.4-12.3) fl Neut % (Auto) 60.0 (34.0-71.1) % Lymph % (Auto) 26.5 (19.3-51.7) % Walsh % (Auto) 8.5 (4.7-12.5) % Eos % (Auto) 3.8 (0.7-5.8) Baso % (Auto) 0.4 (0.1-1.2) % Neut # (Auto) 4.74 (1.56-6.13) K/mm3 Lymph # (Auto) 2.09 (1.18-3.74) K/mm3 Walsh # (Auto) 0.67 H (0.24-0.36) K/mm3 Eos # (Auto) 0.30 (0.04-0.36) K/mm3 Baso # (Auto) 0.03 (0.01-0.08) K/mm3 Sodium (136-145) mEq/L Potassium (3.5-5.1) mEq/L Chloride (98-107) mEq/L Carbon Dioxide (21-32) mEq/L Anion Gap (5-15) BUN (7-18) mg/dL Creatinine (0.55-1.02) mg/dL Est Cr Clr Drug Dosing mL/min Estimated GFR (MDRD) (>60) mL/min BUN/Creatinine Ratio (14-18) Glucose (70-99) mg/dL POC Glucose 168 H 310 H (70-99) mg/dL Calcium (8.5-10.1) mg/dL Total Bilirubin (0.2-1.0) mg/dL AST (15-37) U/L ALT (14-59) U/L Alkaline Phosphatase (46-116) U/L Total Protein (6.4-8.2) g/dl Albumin (3.4-5.0) g/dl Globulin gm/dL Albumin/Globulin Ratio (1-2) 09/19/21 09/19/21 09/19/21 Range/Units 05:19 07:05 11:52 WBC (3.98-10.04) K/mm3 RBC (3.98-5.22) M/mm3 Hgb (11.2-15.7) gm/dl Hct (34.1-44.9) % MCV (79.4-94.8) fl MCH (25.6-32.2) pg MCHC (32.2-35.5) g/dl RDW Std Deviation (36.4-46.3) fL Plt Count (182-369) K/mm3 MPV (9.4-12.3) fl Neut % (Auto) (34.0-71.1) % Lymph % (Auto) (19.3-51.7) % Walsh % (Auto) (4.7-12.5) % Eos % (Auto) (0.7-5.8) Baso % (Auto) (0.1-1.2) % Neut # (Auto) (1.56-6.13) K/mm3 Lymph # (Auto) (1.18-3.74) K/mm3 Walsh # (Auto) (0.24-0.36) K/mm3 Eos # (Auto) (0.04-0.36) K/mm3 Baso # (Auto) (0.01-0.08) K/mm3 Sodium 141 (136-145) mEq/L Potassium 3.3 L (3.5-5.1) mEq/L Chloride 107 (98-107) mEq/L Carbon Dioxide 24 (21-32) mEq/L Anion Gap 13.3 (5-15) BUN 20 H (7-18) mg/dL Creatinine 1.8 H (0.55-1.02) mg/dL Est Cr Clr Drug Dosing 15.99 mL/min Estimated GFR (MDRD) 26 (>60) mL/min BUN/Creatinine Ratio 11.1 L (14-18) Glucose 174 H (70-99) mg/dL POC Glucose 147 H 239 H (70-99) mg/dL Calcium 8.7 (8.5-10.1) mg/dL Total Bilirubin 0.3 (0.2-1.0) mg/dL AST 16 (15-37) U/L ALT 18 (14-59) U/L Alkaline Phosphatase 79 (46-116) U/L Total Protein 6.2 L (6.4-8.2) g/dl Albumin 2.8 L (3.4-5.0) g/dl Globulin 3.4 gm/dL Albumin/Globulin Ratio 0.8 L (1-2) Octavio Results Last 24 Hours: Microbiology 09/17/21 11:15 Blood Culture - Preliminary Blood - Venous - Lab Draw 09/17/21 11:00 Blood Culture - Preliminary Blood - Venous Med Orders - Current: Current Medications Acetaminophen (Acetaminophen 650 Mg Supp) 650 mg RECTAL Q6H PRN PRN Reason: Pain (mild 1-3) Acetaminophen (Acetaminophen 325 Mg Tab) 650 mg PO Q4H PRN PRN Reason: Pain Last Admin: 09/16/21 21:58 Dose: 650 mg Documented by: Albuterol/Ipratropium (Albuterol/Ipratropium 3.0-0.5 Mg/3 Ml Neb Soln) 3 ml NEB Q4H PRN PRN Reason: Shortness Of Breath/wheezing Bisacodyl (Bisacodyl 5 Mg Tab) 10 mg PO DAILY PRN PRN Reason: Constipation Last Admin: 09/14/21 20:26 Dose: 5 mg Documented by: Calcium Carbonate/Glycine (Calcium Carbonate 500 Mg Tab.Chew) 250 mg PO Q4H PRN PRN Reason: Heartburn Clopidogrel Bisulfate (Clopidogrel 75 Mg Tab) 75 mg PO DAILY [facility] Last Admin: 09/19/21 09:37 Dose: 75 mg Documented by: Furosemide (Furosemide 20 Mg Tab) 20 mg PO DAILY [facility] Gabapentin (Gabapentin 300 Mg Cap) 300 mg PO BEDTIME [facility] Last Admin: 09/18/21 21:29 Dose: 300 mg Documented by: Heparin Sodium (Porcine) (Heparin Sodium 5,000 Units/Ml Vial) 5,000 units SUBCUT Q8H [facility] Last Admin: 09/19/21 12:45 Dose: 5,000 units Documented by: Promethazine HCl 6.25 mg/ (Sodium Chloride) 50.25 mls @ 100 mls/hr IV Q6H PRN PRN Reason: Nausea/Vomiting Insulin Glargine (Insulin Glargine,Hum.Rec.Anlog 100 Unit/Ml 3 Ml Pen) 25 unit SUBCUT BEDTIME [facility] Last Admin: 09/18/21 22:12 Dose: 25 unit Documented by: Insulin Human Lispro (Insulin Lispro 100 Unit/Ml 3 Ml Kwikpen) 0 unit SUBCUT QIDACANDBED [facility]; Protocol Last Admin: 09/19/21 12:47 Dose: 4 units Documented by: Metoprolol Succinate (Metoprolol Succinate 50 Mg Tab.Er) 50 mg PO DAILY [facility] Last Admin: 09/19/21 09:37 Dose: 50 mg Documented by: Oxycodone HCl (Oxycodone 5 Mg Tab) 5 mg PO Q6H PRN PRN Reason: Pain (moderate 4-6) Pantoprazole Sodium (Pantoprazole 40 Mg Tab.Cr) 40 mg PO ACBREAKFAST [facility] Last Admin: 09/19/21 05:58 Dose: 40 mg Documented by: Penicillin V Potassium (Penicillin V Potassium 500 Mg Tab) 500 mg PO Q6H [facility] Last Admin: 09/19/21 12:50 Dose: 500 mg Documented by: Polyethylene Glycol (Polyethylene Glycol 3350 Powder 17 Gm Packet) 17 gm PO DAILY PRN PRN Reason: Constipation Sodium Chloride (Sodium Chloride 0.9% 10 Ml Syringe) 10 ml FLUSH ASDIRECTED PRN PRN Reason: Keep Vein Open Last Admin: 09/14/21 16:50 Dose: 10 ml Documented by: Spironolactone (Spironolactone 25 Mg Tab) 50 mg PO DAILY@1200 [facility] Last Admin: 09/19/21 12:48 Dose: 50 mg Documented by: Discontinued Medications Acetaminophen (Acetaminophen 325 Mg Tab) 975 mg PO NOW ONE Stop: 09/14/21 16:13 Last Admin: 09/14/21 16:50 Dose: 975 mg Documented by: Furosemide (Furosemide 40 Mg Tab) 20 mg PO DAILY [facility] Last Admin: 09/19/21 09:37 Dose: 20 mg Documented by: Gabapentin (Gabapentin 300 Mg Cap) 600 mg PO ONETIME ONE Stop: 09/14/21 19:46 Last Admin: 09/14/21 20:22 Dose: 600 mg Documented by: Sodium Chloride (Normal Saline) 1,000 mls @ 125 mls/hr IV ASDIRECTED [facility] Last Admin: 09/14/21 16:49 Dose: 125 mls/hr Documented by: Ceftriaxone Sodium 2 gm/ (Sodium Chloride) 100 mls @ 200 mls/hr IV ONETIME ONE Stop: 09/14/21 16:42 Last Admin: 09/14/21 16:50 Dose: 200 mls/hr Documented by: Lactated Ringer's (Ringers, Lactated) 1,000 mls @ 100 mls/hr IV ASDIRECTED [facility] Lactated Ringer's (Ringers, Lactated) 1,000 mls @ 50 mls/hr IV ASDIRECTED [facility] Last Admin: 09/14/21 20:47 Dose: 50 mls/hr Documented by: Ceftriaxone Sodium 1 gm/ (Sodium Chloride) 100 mls @ 200 mls/hr IV Q24H [facility] Ceftriaxone Sodium 1 gm/ (Sodium Chloride) 100 mls @ 200 mls/hr IV Q12H [facility] Last Admin: 09/16/21 21:39 Dose: Not Given Documented by: Oxacillin Sodium 2 gm/ Sodium (Chloride) 100 mls @ 100 mls/hr IV Q4H [facility] Last Admin: 09/18/21 11:20 Dose: Not Given Documented by: Insulin Glargine (Insulin Glargine,Hum.Rec.Anlog 100 Unit/Ml 3 Ml Pen) 10 unit SUBCUT DAILY [facility] Last Admin: 09/15/21 10:28 Dose: Not Given Documented by: Insulin Glargine (Insulin Glargine,Hum.Rec.Anlog 100 Unit/Ml 3 Ml Pen) 10 unit SUBCUT BEDTIME [facility] Last Admin: 09/17/21 21:07 Dose: 10 units Documented by: Morphine Sulfate (Morphine 2 Mg/Ml Syringe) 1 mg IVPUSH Q4H PRN PRN Reason: Pain (severe 7-10) Stop: 09/15/21 19:06 Potassium Chloride (Potassium Chloride 20 Meq Tab.Er) 40 meq PO ONETIME ONE Stop: 09/19/21 09:24 Last Admin: 09/19/21 09:37 Dose: 40 meq Documented by: Spironolactone (Spironolactone 25 Mg Tab) 50 mg PO DAILY [facility] Last Admin: 09/18/21 16:09 Dose: Not Given Documented by: - Exam Quality Assessment: DVT Prophylaxis (Heparin). No: Supplemental Oxygen General: Alert. No: Oriented (Oriented to person and place) HEENT: Pupils Equal, Mucous Membr. Moist/[place] Neck: Supple, Trachea Midline Lungs: Clear to Auscultation, Normal Respiratory Effort Cardiovascular: Regular Rate, Regular Rhythm, No Murmurs GI/Abdominal Exam: Normal Bowel Sounds, Soft, Non-Tender, No Distention (Female) Exam: Deferred Back Exam: Normal Inspection Extremities: Normal Inspection, Other (Patient does have dressings noted to her bilateral great toes.) Peripheral Pulses: 2+: Radial (L), Radial (R) Skin: Warm, Dry, Other (Dressings noted to bilateral great toes due to removal of toenails) Wound/Incisions: Dressing Dry and Intact Neurological: No New Focal Deficit Psy/Mental Status: Alert, Normal Affect, Normal Mood - Patient Data Lab Results Last 24 hrs: Laboratory Results - last 24 hr 09/18/21 09/18/21 09/19/21 Range/Units 17:09 21:33 05:19 WBC 7.89 (3.98-10.04) K/mm3 RBC 3.74 L (3.98-5.22) M/mm3 Hgb 11.0 L (11.2-15.7) gm/dl Hct 34.4 (34.1-44.9) % MCV 92.0 (79.4-94.8) fl MCH 29.4 (25.6-32.2) pg MCHC 32.0 L (32.2-35.5) g/dl RDW Std Deviation 52.6 H (36.4-46.3) fL Plt Count 212 (182-369) K/mm3 MPV 10.2 (9.4-12.3) fl Neut % (Auto) 60.0 (34.0-71.1) % Lymph % (Auto) 26.5 (19.3-51.7) % Walsh % (Auto) 8.5 (4.7-12.5) % Eos % (Auto) 3.8 (0.7-5.8) Baso % (Auto) 0.4 (0.1-1.2) % Neut # (Auto) 4.74 (1.56-6.13) K/mm3 Lymph # (Auto) 2.09 (1.18-3.74) K/mm3 Walsh # (Auto) 0.67 H (0.24-0.36) K/mm3 Eos # (Auto) 0.30 (0.04-0.36) K/mm3 Baso # (Auto) 0.03 (0.01-0.08) K/mm3 Sodium (136-145) mEq/L Potassium (3.5-5.1) mEq/L Chloride (98-107) mEq/L Carbon Dioxide (21-32) mEq/L Anion Gap (5-15) BUN (7-18) mg/dL Creatinine (0.55-1.02) mg/dL Est Cr Clr Drug Dosing mL/min Estimated GFR (MDRD) (>60) mL/min BUN/Creatinine Ratio (14-18) Glucose (70-99) mg/dL POC Glucose 168 H 310 H (70-99) mg/dL Calcium (8.5-10.1) mg/dL Total Bilirubin (0.2-1.0) mg/dL AST (15-37) U/L ALT (14-59) U/L Alkaline Phosphatase (46-116) U/L Total Protein (6.4-8.2) g/dl Albumin (3.4-5.0) g/dl Globulin gm/dL Albumin/Globulin Ratio (1-2) 09/19/21 09/19/21 09/19/21 Range/Units 05:19 07:05 11:52 WBC (3.98-10.04) K/mm3 RBC (3.98-5.22) M/mm3 Hgb (11.2-15.7) gm/dl Hct (34.1-44.9) % MCV (79.4-94.8) fl MCH (25.6-32.2) pg MCHC (32.2-35.5) g/dl RDW Std Deviation (36.4-46.3) fL Plt Count (182-369) K/mm3 MPV (9.4-12.3) fl Neut % (Auto) (34.0-71.1) % Lymph % (Auto) (19.3-51.7) % Walsh % (Auto) (4.7-12.5) % Eos % (Auto) (0.7-5.8) Baso % (Auto) (0.1-1.2) % Neut # (Auto) (1.56-6.13) K/mm3 Lymph # (Auto) (1.18-3.74) K/mm3 Walsh # (Auto) (0.24-0.36) K/mm3 Eos # (Auto) (0.04-0.36) K/mm3 Baso # (Auto) (0.01-0.08) K/mm3 Sodium 141 (136-145) mEq/L Potassium 3.3 L (3.5-5.1) mEq/L Chloride 107 (98-107) mEq/L Carbon Dioxide 24 (21-32) mEq/L Anion Gap 13.3 (5-15) BUN 20 H (7-18) mg/dL Creatinine 1.8 H (0.55-1.02) mg/dL Est Cr Clr Drug Dosing 15.99 mL/min Estimated GFR (MDRD) 26 (>60) mL/min BUN/Creatinine Ratio 11.1 L (14-18) Glucose 174 H (70-99) mg/dL POC Glucose 147 H 239 H (70-99) mg/dL Calcium 8.7 (8.5-10.1) mg/dL Total Bilirubin 0.3 (0.2-1.0) mg/dL AST 16 (15-37) U/L ALT 18 (14-59) U/L Alkaline Phosphatase 79 (46-116) U/L Total Protein 6.2 L (6.4-8.2) g/dl Albumin 2.8 L (3.4-5.0) g/dl Globulin 3.4 gm/dL Albumin/Globulin Ratio 0.8 L (1-2) Result Diagrams: 09/19/21 05:19 09/19/21 05:19 Octavio Results Last 24 hrs: Microbiology 09/17/21 11:15 Blood Culture - Preliminary Blood - Venous - Lab Draw 09/17/21 11:00 Blood Culture - Preliminary Blood - Venous Sepsis Event Note - Evaluation Sepsis Screening Result: No Definite Risk - Focused Exam Vital Signs: Vital Signs Temp Temp Pulse Pulse Resp BP BP 09/19/21 11:37 97.9 F 61 20 140/78 09/19/21 09:37 72 137/92 H 09/19/21 08:57 97.9 F 72 22 H 137/92 H 09/19/21 08:00 98.7 F 76 19 113/61 09/19/21 04:01 98.4 F 65 16 95/54 L Pulse Ox 09/19/21 11:37 95 09/19/21 09:37 09/19/21 08:57 90 L 09/19/21 08:00 90 L 09/19/21 04:01 91 L - Problem List & Annotations (1) Cellulitis of right leg SNOMED Code(s): 354498955 Code(s): L03.115 - CELLULITIS OF RIGHT LOWER LIMB Status: Acute Priority: High Current Visit: Yes (2) CKD (chronic kidney disease) stage 4, GFR 15-29 ml/min SNOMED Code(s): 942947493 Code(s): N18.4 - CHRONIC KIDNEY DISEASE, STAGE 4 (SEVERE) Status: Chronic Priority: Medium Current Visit: Yes (3) Hyperglycemia due to type 2 diabetes mellitus SNOMED Code(s): 902801387492397, 716148107952507 Code(s): E11.65 - TYPE 2 DIABETES MELLITUS WITH HYPERGLYCEMIA Status: Chronic Priority: High Current Visit: Yes Qualifiers: Diabetes mellitus longterm insulin use: with watcher automat long goods use Qualified Code(s): E11.65 - Type 2 diabetes mellitus with hyperglycemia; 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 Assessment and plan AMSresolved Etiologies include sepsis/infection, dehydration, metabolic events No focal neurological deficits Closely monitor Speech therapy today cleared her for mechanical soft diet. Early sepsis 2nd to cellulitis of right leg Bacteremia: Called by nurse that there was a positive blood culture. Reviewed blood culture shows growth of 1 out of 2 sets positive of Staphylococcus lugdunensis. I started her on nafcillin 2 g every 4 hours IV and stop ceftriaxone. Ordered echocardiogram for Sunday morning and will repeat blood cultures tomorrow. CRP 2.8 Blood culture positive of Staphylococcus lugdunensis Cellulitis, right leg and foot Had great toe nails removed lsat week US doppler to rule out a DVT DC ceftriaxone 1 g IV twice daily and switch to nafcillin Blood cultures as above Acute hypoxic respiratory failureresolved Oxygen saturation 88% in the ER Etiology unknown Pulse ox Oxygen therapy to keep oxygen saturation greater than 94%on room air HOME on CKD, creatinine 1.0 on 12/06/2018, creatinine has been around 2.0 over the past 2-3 years. Creatinine 2.6-->2.1 Avoid nephrotoxic meds Repeat renal function tomorrow DM type 2 on insulin degludec 20units daily N.p.o. due to history of dysphagia I will order Lantus 10 units daily Insulin sliding scales Blood sugars between low 100s 200s HTN Restart on Sunday metoprolol succinate 50mg daily that has been on hold Hydralazine as needed CHF, NYHA class II Restarted on Sunday lasix 20mg daily and spironolactone 50mg daily Intake and output Repeat electrolytes in the morning Atrial fibrillation Heart rate is controlled Restart on Sunday metoprolol has been on hold History of GI bleeding. Not on anticoagulation Hx of GI bleeding Continue home medication Plavix Repeat a CBC in morning hx of dysphagia N.p.o. Speech pathology consult Generalized weakness PT OT DVT prophylaxis: Heparin CODE STATUS: DNR/DNI. Discussed with the patient and her daughter who declined CPR and intubation Disposition: Length of stay greater than 96 hours secondary to positive blood cultures and need for IV antibiotics. 09/17/2021 The patient is an 89-year-old lady who is doing better today. She is awaiting retirement placement. She had positive blood cultures which were growing Staphylococcus lugdunensis and is currently pending a 2D echocardiogram to rule out vegetations. For now the patient will be retained in hospitalization. She has diabetes mellitus type 2 and as a result of this she will be alone current insulin sliding scale may have to adjust her long-acting as needed. Diabetic diet as tolerated. She had been in the past refusing testing although she did have repeat laboratory cultures completed. The patient's vital signs will be monitored and her antihypertensive medications will also be adjusted as necessary. The patient has had some resolution of her respiratory failure and her oxygen saturations to be kept around 92%. Repeat laboratory studies have been ordered for the morning. The patient has been encouraged to ambulate. The patient is also anticoagulated with the use of heparin and Plavix. We will monitor CBC for bleeding. 09/18/2021 The patient is an 89-year-old lady who has been refusing IV restarts. She says she is tired of being poked. The patient says that she is tired and just wants to go home. The patient is currently pending a 2D echocardiogram. The patient will be retained in hospitalization. The patient's diabetic diet will continue for now. Repeat blood cultures are currently pending. Patient have repeat laboratory studies in the morning. The patient so far is on room air. We will continue to monitor her saturations. She is also anticoagulated with the use of heparin and Plavix. The patient should be appropriate for discharge back to [facility] facility after completion of testing. Because of the patient's refusal to have IV started the patient will be started on oral equivalent consisting of Pen-Vee K 500 mg p.o. 4 times daily. This may change if 2D echocardiogram testing reveals endocarditis. 09/19/2021 89-year-old female admitted to the medical floor for cellulitis and subsequently positive blood cultures. She is requesting to return back to the retirement as she states she is tired of being poked from the IVs and blood draws. She was switched from IV antibiotics to Pen-Vee K yesterday. Appears to be tolerating this well. Currently anticoagulated on heparin and Plavix. Awaiting 2D echo report. If there is no endocarditis suspected, patient will be discharged back to the retirement tomorrow however if the echo does reveal endocarditis she will need to be treated with IV antibiotics. Lab studies reveal a white count of 11.06, hemoglobin 11.2, hematocrit 36.3, platelet count 206, sodium 140, potassium 4.1, carbon dioxide 28, anion gap 12.1, BUN 33, creatinine 2.6, GFR 17, glucose range has been from 98-207. Patient remains on a diabetic diet. Had a lengthy discussion with the patient's daughter Lisbeth today, as the patient does have a history of dementia. Lisbeth will be updated once we have the report from the echocardiogram. We will continue with PT/OT. <Bebeto Barriga - Last Filed: 09/19/21 15:49> - Patient Data Vitals - Most Recent: Last Vital Signs Temp 36.6 C 09/19/21 15:34 Pulse 71 09/19/21 15:35 Resp 16 09/19/21 15:34 BP 129/40 L 09/19/21 15:34 Pulse Ox 94 L 09/19/21 15:35 I&O - Last 24 Hours: Intake & Output 09/19/21 09/19/21 09/19/21 06:59 14:59 22:59 Intake Total 100 120 600 Output Total 0 525 Balance 100 120 75 Lab Results Last 24 Hours: Laboratory Results - last 24 hr 09/18/21 09/18/21 09/19/21 Range/Units 17:09 21:33 05:19 WBC 7.89 (3.98-10.04) K/mm3 RBC 3.74 L (3.98-5.22) M/mm3 Hgb 11.0 L (11.2-15.7) gm/dl Hct 34.4 (34.1-44.9) % MCV 92.0 (79.4-94.8) fl MCH 29.4 (25.6-32.2) pg MCHC 32.0 L (32.2-35.5) g/dl RDW Std Deviation 52.6 H (36.4-46.3) fL Plt Count 212 (182-369) K/mm3 MPV 10.2 (9.4-12.3) fl Neut % (Auto) 60.0 (34.0-71.1) % Lymph % (Auto) 26.5 (19.3-51.7) % Walsh % (Auto) 8.5 (4.7-12.5) % Eos % (Auto) 3.8 (0.7-5.8) Baso % (Auto) 0.4 (0.1-1.2) % Neut # (Auto) 4.74 (1.56-6.13) K/mm3 Lymph # (Auto) 2.09 (1.18-3.74) K/mm3 Walsh # (Auto) 0.67 H (0.24-0.36) K/mm3 Eos # (Auto) 0.30 (0.04-0.36) K/mm3 Baso # (Auto) 0.03 (0.01-0.08) K/mm3 Sodium (136-145) mEq/L Potassium (3.5-5.1) mEq/L Chloride (98-107) mEq/L Carbon Dioxide (21-32) mEq/L Anion Gap (5-15) BUN (7-18) mg/dL Creatinine (0.55-1.02) mg/dL Est Cr Clr Drug Dosing mL/min Estimated GFR (MDRD) (>60) mL/min BUN/Creatinine Ratio (14-18) Glucose (70-99) mg/dL POC Glucose 168 H 310 H (70-99) mg/dL Calcium (8.5-10.1) mg/dL Total Bilirubin (0.2-1.0) mg/dL AST (15-37) U/L ALT (14-59) U/L Alkaline Phosphatase (46-116) U/L Total Protein (6.4-8.2) g/dl Albumin (3.4-5.0) g/dl Globulin gm/dL Albumin/Globulin Ratio (1-2) 09/19/21 09/19/21 09/19/21 Range/Units 05:19 07:05 11:52 WBC (3.98-10.04) K/mm3 RBC (3.98-5.22) M/mm3 Hgb (11.2-15.7) gm/dl Hct (34.1-44.9) % MCV (79.4-94.8) fl MCH (25.6-32.2) pg MCHC (32.2-35.5) g/dl RDW Std Deviation (36.4-46.3) fL Plt Count (182-369) K/mm3 MPV (9.4-12.3) fl Neut % (Auto) (34.0-71.1) % Lymph % (Auto) (19.3-51.7) % Walsh % (Auto) (4.7-12.5) % Eos % (Auto) (0.7-5.8) Baso % (Auto) (0.1-1.2) % Neut # (Auto) (1.56-6.13) K/mm3 Lymph # (Auto) (1.18-3.74) K/mm3 Walsh # (Auto) (0.24-0.36) K/mm3 Eos # (Auto) (0.04-0.36) K/mm3 Baso # (Auto) (0.01-0.08) K/mm3 Sodium 141 (136-145) mEq/L Potassium 3.3 L (3.5-5.1) mEq/L Chloride 107 (98-107) mEq/L Carbon Dioxide 24 (21-32) mEq/L Anion Gap 13.3 (5-15) BUN 20 H (7-18) mg/dL Creatinine 1.8 H (0.55-1.02) mg/dL Est Cr Clr Drug Dosing 15.99 mL/min Estimated GFR (MDRD) 26 (>60) mL/min BUN/Creatinine Ratio 11.1 L (14-18) Glucose 174 H (70-99) mg/dL POC Glucose 147 H 239 H (70-99) mg/dL Calcium 8.7 (8.5-10.1) mg/dL Total Bilirubin 0.3 (0.2-1.0) mg/dL AST 16 (15-37) U/L ALT 18 (14-59) U/L Alkaline Phosphatase 79 (46-116) U/L Total Protein 6.2 L (6.4-8.2) g/dl Albumin 2.8 L (3.4-5.0) g/dl Globulin 3.4 gm/dL Albumin/Globulin Ratio 0.8 L (1-2) Octavio Results Last 24 Hours: Microbiology 09/17/21 11:15 Blood Culture - Preliminary Blood - Venous - Lab Draw 09/17/21 11:00 Blood Culture - Preliminary Blood - Venous Med Orders - Current: Current Medications Acetaminophen (Acetaminophen 650 Mg Supp) 650 mg RECTAL Q6H PRN PRN Reason: Pain (mild 1-3) Acetaminophen (Acetaminophen 325 Mg Tab) 650 mg PO Q4H PRN PRN Reason: Pain Last Admin: 09/16/21 21:58 Dose: 650 mg Documented by: Albuterol/Ipratropium (Albuterol/Ipratropium 3.0-0.5 Mg/3 Ml Neb Soln) 3 ml NEB Q4H PRN PRN Reason: Shortness Of Breath/wheezing Bisacodyl (Bisacodyl 5 Mg Tab) 10 mg PO DAILY PRN PRN Reason: Constipation Last Admin: 09/14/21 20:26 Dose: 5 mg Documented by: Calcium Carbonate/Glycine (Calcium Carbonate 500 Mg Tab.Chew) 250 mg PO Q4H PRN PRN Reason: Heartburn Clopidogrel Bisulfate (Clopidogrel 75 Mg Tab) 75 mg PO DAILY [facility] Last Admin: 09/19/21 09:37 Dose: 75 mg Documented by: Furosemide (Furosemide 20 Mg Tab) 20 mg PO DAILY [facility] Gabapentin (Gabapentin 300 Mg Cap) 300 mg PO BEDTIME [facility] Last Admin: 09/18/21 21:29 Dose: 300 mg Documented by: Heparin Sodium (Porcine) (Heparin Sodium 5,000 Units/Ml Vial) 5,000 units SUBCUT Q8H [facility] Last Admin: 09/19/21 12:45 Dose: 5,000 units Documented by: Promethazine HCl 6.25 mg/ (Sodium Chloride) 50.25 mls @ 100 mls/hr IV Q6H PRN PRN Reason: Nausea/Vomiting Insulin Glargine (Insulin Glargine,Hum.Rec.Anlog 100 Unit/Ml 3 Ml Pen) 25 unit SUBCUT BEDTIME [facility] Last Admin: 09/18/21 22:12 Dose: 25 unit Documented by: Insulin Human Lispro (Insulin Lispro 100 Unit/Ml 3 Ml Kwikpen) 0 unit SUBCUT QIDACANDBED [facility]; Protocol Last Admin: 09/19/21 12:47 Dose: 4 units Documented by: Metoprolol Succinate (Metoprolol Succinate 50 Mg Tab.Er) 50 mg PO DAILY [facility] Last Admin: 09/19/21 09:37 Dose: 50 mg Documented by: Oxycodone HCl (Oxycodone 5 Mg Tab) 5 mg PO Q6H PRN PRN Reason: Pain (moderate 4-6) Pantoprazole Sodium (Pantoprazole 40 Mg Tab.Cr) 40 mg PO ACBREAKFAST [facility] Last Admin: 09/19/21 05:58 Dose: 40 mg Documented by: Penicillin V Potassium (Penicillin V Potassium 500 Mg Tab) 500 mg PO Q6H [facility] Last Admin: 09/19/21 12:50 Dose: 500 mg Documented by: Polyethylene Glycol (Polyethylene Glycol 3350 Powder 17 Gm Packet) 17 gm PO DAILY PRN PRN Reason: Constipation Sodium Chloride (Sodium Chloride 0.9% 10 Ml Syringe) 10 ml FLUSH ASDIRECTED PRN PRN Reason: Keep Vein Open Last Admin: 09/14/21 16:50 Dose: 10 ml Documented by: Spironolactone (Spironolactone 25 Mg Tab) 50 mg PO DAILY@1200 [facility] Last Admin: 09/19/21 12:48 Dose: 50 mg Documented by: Discontinued Medications Acetaminophen (Acetaminophen 325 Mg Tab) 975 mg PO NOW ONE Stop: 09/14/21 16:13 Last Admin: 09/14/21 16:50 Dose: 975 mg Documented by: Furosemide (Furosemide 40 Mg Tab) 20 mg PO DAILY [facility] Last Admin: 09/19/21 09:37 Dose: 20 mg Documented by: Gabapentin (Gabapentin 300 Mg Cap) 600 mg PO ONETIME ONE Stop: 09/14/21 19:46 Last Admin: 09/14/21 20:22 Dose: 600 mg Documented by: Sodium Chloride (Normal Saline) 1,000 mls @ 125 mls/hr IV ASDIRECTED [facility] Last Admin: 09/14/21 16:49 Dose: 125 mls/hr Documented by: Ceftriaxone Sodium 2 gm/ (Sodium Chloride) 100 mls @ 200 mls/hr IV ONETIME ONE Stop: 09/14/21 16:42 Last Admin: 09/14/21 16:50 Dose: 200 mls/hr Documented by: Lactated Ringer's (Ringers, Lactated) 1,000 mls @ 100 mls/hr IV ASDIRECTED [facility] Lactated Ringer's (Ringers, Lactated) 1,000 mls @ 50 mls/hr IV ASDIRECTED [facility] Last Admin: 09/14/21 20:47 Dose: 50 mls/hr Documented by: Ceftriaxone Sodium 1 gm/ (Sodium Chloride) 100 mls @ 200 mls/hr IV Q24H [facility] Ceftriaxone Sodium 1 gm/ (Sodium Chloride) 100 mls @ 200 mls/hr IV Q12H [facility] Last Admin: 09/16/21 21:39 Dose: Not Given Documented by: Oxacillin Sodium 2 gm/ Sodium (Chloride) 100 mls @ 100 mls/hr IV Q4H [facility] Last Admin: 09/18/21 11:20 Dose: Not Given Documented by: Insulin Glargine (Insulin Glargine,Hum.Rec.Anlog 100 Unit/Ml 3 Ml Pen) 10 unit SUBCUT DAILY [facility] Last Admin: 09/15/21 10:28 Dose: Not Given Documented by: Insulin Glargine (Insulin Glargine,Hum.Rec.Anlog 100 Unit/Ml 3 Ml Pen) 10 unit SUBCUT BEDTIME [facility] Last Admin: 09/17/21 21:07 Dose: 10 units Documented by: Morphine Sulfate (Morphine 2 Mg/Ml Syringe) 1 mg IVPUSH Q4H PRN PRN Reason: Pain (severe 7-10) Stop: 09/15/21 19:06 Potassium Chloride (Potassium Chloride 20 Meq Tab.Er) 40 meq PO ONETIME ONE Stop: 09/19/21 09:24 Last Admin: 09/19/21 09:37 Dose: 40 meq Documented by: Spironolactone (Spironolactone 25 Mg Tab) 50 mg PO DAILY [facility] Last Admin: 09/18/21 16:09 Dose: Not Given Documented by: - Patient Data Lab Results Last 24 hrs: Laboratory Results - last 24 hr 09/18/21 09/18/21 09/19/21 Range/Units 17:09 21:33 05:19 WBC 7.89 (3.98-10.04) K/mm3 RBC 3.74 L (3.98-5.22) M/mm3 Hgb 11.0 L (11.2-15.7) gm/dl Hct 34.4 (34.1-44.9) % MCV 92.0 (79.4-94.8) fl MCH 29.4 (25.6-32.2) pg MCHC 32.0 L (32.2-35.5) g/dl RDW Std Deviation 52.6 H (36.4-46.3) fL Plt Count 212 (182-369) K/mm3 MPV 10.2 (9.4-12.3) fl Neut % (Auto) 60.0 (34.0-71.1) % Lymph % (Auto) 26.5 (19.3-51.7) % Walsh % (Auto) 8.5 (4.7-12.5) % Eos % (Auto) 3.8 (0.7-5.8) Baso % (Auto) 0.4 (0.1-1.2) % Neut # (Auto) 4.74 (1.56-6.13) K/mm3 Lymph # (Auto) 2.09 (1.18-3.74) K/mm3 Walsh # (Auto) 0.67 H (0.24-0.36) K/mm3 Eos # (Auto) 0.30 (0.04-0.36) K/mm3 Baso # (Auto) 0.03 (0.01-0.08) K/mm3 Sodium (136-145) mEq/L Potassium (3.5-5.1) mEq/L Chloride (98-107) mEq/L Carbon Dioxide (21-32) mEq/L Anion Gap (5-15) BUN (7-18) mg/dL Creatinine (0.55-1.02) mg/dL Est Cr Clr Drug Dosing mL/min Estimated GFR (MDRD) (>60) mL/min BUN/Creatinine Ratio (14-18) Glucose (70-99) mg/dL POC Glucose 168 H 310 H (70-99) mg/dL Calcium (8.5-10.1) mg/dL Total Bilirubin (0.2-1.0) mg/dL AST (15-37) U/L ALT (14-59) U/L Alkaline Phosphatase (46-116) U/L Total Protein (6.4-8.2) g/dl Albumin (3.4-5.0) g/dl Globulin gm/dL Albumin/Globulin Ratio (1-2) 09/19/21 09/19/21 09/19/21 Range/Units 05:19 07:05 11:52 WBC (3.98-10.04) K/mm3 RBC (3.98-5.22) M/mm3 Hgb (11.2-15.7) gm/dl Hct (34.1-44.9) % MCV (79.4-94.8) fl MCH (25.6-32.2) pg MCHC (32.2-35.5) g/dl RDW Std Deviation (36.4-46.3) fL Plt Count (182-369) K/mm3 MPV (9.4-12.3) fl Neut % (Auto) (34.0-71.1) % Lymph % (Auto) (19.3-51.7) % Walsh % (Auto) (4.7-12.5) % Eos % (Auto) (0.7-5.8) Baso % (Auto) (0.1-1.2) % Neut # (Auto) (1.56-6.13) K/mm3 Lymph # (Auto) (1.18-3.74) K/mm3 Walsh # (Auto) (0.24-0.36) K/mm3 Eos # (Auto) (0.04-0.36) K/mm3 Baso # (Auto) (0.01-0.08) K/mm3 Sodium 141 (136-145) mEq/L Potassium 3.3 L (3.5-5.1) mEq/L Chloride 107 (98-107) mEq/L Carbon Dioxide 24 (21-32) mEq/L Anion Gap 13.3 (5-15) BUN 20 H (7-18) mg/dL Creatinine 1.8 H (0.55-1.02) mg/dL Est Cr Clr Drug Dosing 15.99 mL/min Estimated GFR (MDRD) 26 (>60) mL/min BUN/Creatinine Ratio 11.1 L (14-18) Glucose 174 H (70-99) mg/dL POC Glucose 147 H 239 H (70-99) mg/dL Calcium 8.7 (8.5-10.1) mg/dL Total Bilirubin 0.3 (0.2-1.0) mg/dL AST 16 (15-37) U/L ALT 18 (14-59) U/L Alkaline Phosphatase 79 (46-116) U/L Total Protein 6.2 L (6.4-8.2) g/dl Albumin 2.8 L (3.4-5.0) g/dl Globulin 3.4 gm/dL Albumin/Globulin Ratio 0.8 L (1-2) Result Diagrams: 09/19/21 05:19 09/19/21 05:19 Octavio Results Last 24 hrs: Microbiology 09/17/21 11:15 Blood Culture - Preliminary Blood - Venous - Lab Draw 09/17/21 11:00 Blood Culture - Preliminary Blood - Venous Sepsis Event Note - Focused Exam Vital Signs: Vital Signs Temp Temp Pulse Pulse Resp BP BP 09/19/21 15:35 71 09/19/21 15:34 36.6 C 77 16 129/40 L 09/19/21 11:37 36.6 C 61 20 140/78 09/19/21 09:37 72 137/92 H 09/19/21 08:57 36.6 C 72 22 H 137/92 H 09/19/21 08:00 37.1 C 76 19 113/61 09/19/21 04:01 36.9 C 65 16 95/54 L Pulse Ox 09/19/21 15:35 94 L 09/19/21 15:34 89 L 09/19/21 11:37 95 09/19/21 09:37 09/19/21 08:57 90 L 09/19/21 08:00 90 L 09/19/21 04:01 91 L - Problem List & Annotations (1) Cellulitis of right leg SNOMED Code(s): 878591898 Code(s): L03.115 - CELLULITIS OF RIGHT LOWER LIMB Status: Acute Priority: High Current Visit: Yes (2) Sepsis SNOMED Code(s): 22427272 Code(s): A41.9 - SEPSIS, UNSPECIFIED ORGANISM Status: Resolved Priority: High Current Visit: Yes Qualifiers: Sepsis type: sepsis due to unspecified organism Sepsis acute organ dysfunct ion status: unspecified Qualified Code(s): A41.9 - Sepsis, unspecified organism (3) Hyperglycemia due to type 2 diabetes mellitus SNOMED Code(s): 441801375755328, 683323499399164 Code(s): E11.65 - TYPE 2 DIABETES MELLITUS WITH HYPERGLYCEMIA Status: Chronic Priority: High Current Visit: Yes Qualifiers: Diabetes mellitus [employer]cher [employer] insulin use: with watcher [employer] use Qualified Code(s): E11.65 - Type 2 diabetes mellitus with hyperglycemia; Z79.4 - residential (current) use of insulin (4) CKD (chronic kidney disease) stage 4, GFR 15-29 ml/min SNOMED Code(s): 477795868 Code(s): N18.4 - CHRONIC KIDNEY DISEASE, STAGE 4 (SEVERE) Status: Chronic Priority: Medium Current Visit: Yes - My Orders Last 24 Hours: My Active Orders 09/18/21 21:00 Insulin Glargine,Hum.Rec.Anlog [Semglee Pen] 25 unit SUBCUT BEDTIME - Free Text/Narrative Note: I have seen and examined the patient independently of ANDRIA Rodriguez, and I have discussed the case with her. I have reviewed and agree with the plan of care as outlined by her. Please see orders.
[2021-09-19] MEDS: Gabapentin 300 MG Cap PO SCH (20:43)
[2021-09-19] MEDS: Insulin Glargine,Hum.Rec.Anlog 100 UNIT/ML 3 ML Pen SUBCUT SCH (21:01)
[2021-09-20] MEDS: Heparin Sodium 5,000 Units/ML Vial SUBCUT SCH (04:38)
[2021-09-20] MEDS: Penicillin V Potassium 500 MG Tab PO SCH ×2 (06:59→11:45)
[2021-09-20] MEDS: Pantoprazole 40 MG Tab.CR PO SCH (06:59)
[2021-09-20] MEDS: Metoprolol Succinate 50 MG Tab.ER PO SCH (08:57)
[2021-09-20] MEDS: Clopidogrel 75 MG Tab PO SCH (08:57)
[2021-09-20] MEDS: Insulin Lispro 100 Unit/ML 3 ML KwikPen SUBCUT SCH ×2 (08:58→11:51)
[2021-09-20] MEDS ORDERED: Furosemide 20 MG Tab PO SCH (09:00)
--- NOTE | 2021-09-20 09:38 | PCM.DCSUM1 ---
<JennChino M - Last Filed: 09/20/21 09:50> Discharge Summary - Hospital Course HPI Initial Comments: 89-year-old female who presented to the emergency department from [facility] due to generalized weakness, increased confusion and fever. Patient does have a history of CHF, hypertension, diabetes and atrial fibrillation. On the day the patient presented to the emergency department she was found to be very weak, she was not able to stand or walk and prior to this she had been able to. Patient's right leg and both feet were found to be reddened and warm. Patient did have both great toenails removed 1 week prior to emergency room visit. Upon ED eval, the patient was found to have a low-grade fever, leukocytosis, oxygen saturations at 88% and an elevated creatinine level. Patient was subsequently admitted to the medical floor and started on IV Rocephin. Blood cultures did come back positive growing Staphylococcus Ludgunesis. At that time, Rocephin was discontinued and the nafcillin was started. However, the patient did not tolerate this well as she complained of not wanting to be poked anymore with blood draws and IVs. She was subsequently changed to Pen-Vee K orally. 2D echo was completed which did show a left ventricular ejection fraction of 60 to 65%. There was no evidence of valvular vegetation. The patient remained afebrile and hemodynamically stable. Hypoxia resolved as well. Patient was [facility]. Diagnosis: Stroke: No - Discharge Data Discharge Date: 09/20/21 Discharge Disposition: DC/Tfer to SNF 03 Condition: Good - Referral to Home Health Primary Care Physician: Dudley Winchester MD - Discharge Diagnosis/Problem(s) (1) Cellulitis of right leg SNOMED Code(s): 758675727 ICD Code: L03.115 - CELLULITIS OF RIGHT LOWER LIMB Status: Acute Priority: High (2) CKD (chronic kidney disease) stage 4, GFR 15-29 ml/min SNOMED Code(s): 122806946 ICD Code: N18.4 - CHRONIC KIDNEY DISEASE, STAGE 4 (SEVERE) Status: Chronic Priority: Medium (3) Hyperglycemia due to type 2 diabetes mellitus SNOMED Code(s): 993337542012039, 007202640969787 ICD Code: E11.65 - TYPE 2 DIABETES MELLITUS WITH HYPERGLYCEMIA Status: Chronic Priority: High Qualifiers: Diabetes mellitus tank terminal gauger insulin use: with custodial use Qualified Code(s): E11.65 - Type 2 diabetes mellitus with hyperglycemia; Z79.4 - terminal carman (current) use of insulin (4) Sepsis SNOMED Code(s): 35477484 ICD Code: A41.9 - SEPSIS, UNSPECIFIED ORGANISM Status: Resolved Priority: High Qualifiers: Sepsis type: sepsis due to unspecified organism Sepsis acute organ dysfunction status: unspecified Qualified Code(s): A41.9 - Sepsis, unspecified organism - Patient Summary/Data Consults: Consultations 09/14/21 19:03 OT Evaluation and Treatment [CONS] Routine PT Evaluation and Treatment [CONS] Routine 09/14/21 19:43 Consult to Speech Language Pathology [LAUNDRY MACHINE OPERATOR Evaluation and Treatment] [CONS] Routine Hospital Course: 09/14/2021 Patient is an 89-year-old female with a history of CHF, hypertension, diabetes, and atrial fibrillation who was [facility] ER [facility] a prison due to generalized weakness, confusion and fever. Assessment and plan AMS Etiologies include sepsis/infection, dehydration, metabolic events No focal neurological deficits Closely monitor Early sepsis 2nd to cellulitis of right leg LA 1.3, CRP 2.8 Blood culture Gentle IV fluid Antibiotics Cellulitis, right leg and foot Had great toe nails removed lsat week US doppler to rule out a DVT Ceftriaxone 1 g IV daily Acute hypoxic respiratory failure Oxygen saturation 88% in the ER Etiology unknown Pulse ox Oxygen therapy to keep oxygen saturation greater than 94% HOME on CKD, creatinine 1.0 on 12/06/2018, creatinine has been around 2.0 over the past 2-3 years. Avoid nephrotoxic meds Repeat renal function in the morning DM type 2 on insulin degludec 20units daily N.p.o. due to history of dysphagia I will order Lantus 10 units daily Insulin sliding scales HTN Metoprolol succinate 50mg daily is on hold due to soft blood pressure Hydralazine as needed CHF, NYHA class II lasix 20mg daily and spironolactone 50mg daily are on hold Intake and output Repeat electrolytes in the morning Atrial fibrillation Heart rate is controlled Metoprolol is on hold due to soft blood pressure History of GI bleeding. Not on anticoagulation Hx of GI bleeding Continue home medication Plavix Repeat a CBC in morning hx of dysphagia N.p.o. Speech pathology consult Generalized weakness PT OT DVT prophylaxis: Heparin CODE STATUS: DNR/DNI. Discussed with the patient and her daughter who declined CPR and intubation Disposition: Greater than 2 midnights 09/15/2021 Assessment and plan AMSresolved Etiologies include sepsis/infection, dehydration, metabolic events No focal neurological deficits Closely monitor Speech therapy today cleared her for mechanical soft diet. Early sepsis 2nd to cellulitis of right leg LA 1.3, CRP 2.8 Blood culture DC IV fluid Antibiotics Cellulitis, right leg and foot Had great toe nails removed lsat week US doppler to rule out a DVT Ceftriaxone 1 g IV twice daily Blood cultures pending Acute hypoxic respiratory failureresolved Oxygen saturation 88% in the ER Etiology unknown Pulse ox Oxygen therapy to keep oxygen saturation greater than 94%on room air HOME on CKD, creatinine 1.0 on 12/06/2018, creatinine has been around 2.0 over the past 2-3 years. Creatinine 2.6 Avoid nephrotoxic meds Repeat renal function in the morning DM type 2 on insulin degludec 20units daily N.p.o. due to history of dysphagia I will order Lantus 10 units daily Insulin sliding scales HTN Metoprolol succinate 50mg daily is on hold due to soft blood pressure Hydralazine as needed CHF, NYHA class II lasix 20mg daily and spironolactone 50mg daily are on hold Intake and output Repeat electrolytes in the morning Atrial fibrillation Heart rate is controlled Metoprolol is on hold due to soft blood pressure History of GI bleeding. Not on anticoagulation Hx of GI bleeding Continue home medication Plavix Repeat a CBC in morning hx of dysphagia N.p.o. Speech pathology consult Generalized weakness PT OT 09/16/2021 Assessment and plan AMSresolved Etiologies include sepsis/infection, dehydration, metabolic events No focal neurological deficits Closely monitor Speech therapy today cleared her for mechanical soft diet. Early sepsis 2nd to cellulitis of right leg Bacteremia: Called by nurse that there was a positive blood culture. Reviewed blood culture shows growth of 1 out of 2 sets positive of Staphylococcus lugdunensis. I started her on nafcillin 2 g every 4 hours IV and stop ceftriaxone. Ordered echocardiogram for Sunday morning and will repeat blood cultures tomorrow. CRP 2.8 Blood culture positive of Staphylococcus lugdunensis Cellulitis, right leg and foot Had great toe nails removed lsat week US doppler to rule out a DVT DC ceftriaxone 1 g IV twice daily and switch to nafcillin Blood cultures as above Acute hypoxic respiratory failureresolved Oxygen saturation 88% in the ER Etiology unknown Pulse ox Oxygen therapy to keep oxygen saturation greater than 94%on room air HOME on CKD, creatinine 1.0 on 12/06/2018, creatinine has been around 2.0 over the past 2-3 years. Creatinine 2.6-->2.1 Avoid nephrotoxic meds Repeat renal function tomorrow DM type 2 on insulin degludec 20units daily N.p.o. due to history of dysphagia I will order Lantus 10 units daily Insulin sliding scales Blood sugars between low 100s 200s HTN Restart on Sunday metoprolol succinate 50mg daily that has been on hold Hydralazine as needed CHF, NYHA class II Restarted on Sunday lasix 20mg daily and spironolactone 50mg daily Intake and output Repeat electrolytes in the morning Atrial fibrillation Heart rate is controlled Restart on Sunday metoprolol has been on hold History of GI bleeding. Not on anticoagulation Hx of GI bleeding Continue home medication Plavix Repeat a CBC in morning hx of dysphagia N.p.o. Speech pathology consult Generalized weakness PT OT 09/17/2021 The patient is an 89-year-old lady who is doing better today. She is awaiting prison placement. She had positive blood cultures which were growing Staphylococcus lugdunensis and is currently pending a 2D echocardiogram to rule out vegetations. For now the patient will be retained in hospitalization. She has diabetes mellitus type 2 and as a result of this she will be alone current insulin sliding scale may have to adjust her long-acting as needed. Diabetic diet as tolerated. She had been in the past refusing testing although she did have repeat laboratory cultures completed. The patient's vital signs will be monitored and her antihypertensive medications will also be adjusted as necessary. The patient has had some resolution of her respiratory failure and her oxygen saturations to be kept around 92%. Repeat laboratory studies have been ordered for the morning. The patient has been encouraged to ambulate. The patient is also anticoagulated with the use of heparin and Plavix. We will monitor CBC for bleeding. 09/18/21 The patient is an 89-year-old lady who has been refusing IV restarts. She says she is tired of being poked. The patient says that she is tired and just wants to go home. The patient is currently pending a 2D echocardiogram. The patient will be retained in hospitalization. The patient's diabetic diet will continue for now. Repeat blood cultures are currently pending. Patient have repeat laboratory studies in the morning. The patient so far is on room air. We will continue to monitor her saturations. She is also anticoagulated with the use of heparin and Plavix. The patient should be appropriate for discharge back to intermediate facility after completion of testing. Because of the patient's refusal to have IV started the patient will be started on oral equivalent consisting of Pen-Vee K 500 mg p.o. 4 times daily. This may change if 2D echocardiogram testing reveals endocarditis. 09/19/2021 89-year-old female admitted to the medical floor for cellulitis and subsequently positive blood cultures. She is requesting to return back to the prison as she states she is tired of being poked from the IVs and blood draws. She was switched from IV antibiotics to Pen-Vee K yesterday. Appears to be tolerating this well. Currently anticoagulated on heparin and Plavix. Awaiting 2D echo report. If there is no endocarditis suspected, patient will be discharged back to the prison tomorrow however if the echo does reveal endocarditis she will need to be treated with IV antibiotics. Lab studies reveal a white count of 11.06, hemoglobin 11.2, hematocrit 36.3, platelet count 206, sodium 140, potassium 4.1, carbon dioxide 28, anion gap 12.1, BUN 33, creatinine 2.6, GFR 17, glucose range has been from 98-207. Patient remains on a diabetic diet. Had a lengthy discussion with the patient's daughter Lisbeth today, as the patient does have a history of dementia. Lisbeth will be updated once we have the report from the echocardiogram. We will continue with PT/OT. 09/20/2021 The patient is an 89-year-old female who is doing quite well today. Echocardiogram report summary: 1. Left ventricular ejection fraction, by visual estimation, is 60 to 65%. 2. Normal left ventricular systolic function. 3. Moderate proximal septal hypertrophy. 4. Trace of mitral valve regurgitation. 5. Trace tricuspid valve regurgitation. 6. There is no evidence of valvular vegetation, consider HALIE if highly suspicious for endocarditis. Patient has been afebrile, hypoxia has resolved and she is currently on room air satting around 92%. Confusion seems to have resolved. She is otherwise hemodynamically stable. I have no reason to suspect endocarditis. While patient was in the hospital she was receiving metoprolol ER 50 mg daily however it is noted that on her medication reconciliation form she was taking 12.5 mg daily. However, blood pressures have maintained as well as heart rate on the 50 mg dose so we will continue this at discharge. All other home medications will be continued. She will be discharged to the prison with prescription for Pen-Vee K for another 10 days to be sure that her infection has resolved. She will need to follow-up with your primary care provider within a week. - Discharge Plan *PRESCRIPTION DRUG MONITORING PROGRAM REVIEWED*: Not Applicable *COPY OF PRESCRIPTION DRUG MONITORING REPORT IN PATIENT [place]: Not Applicable Prescriptions/Med Rec: Metoprolol Succinate 50 mg PO DAILY #30 tab.er.24h Penicillin V Potassium [Veetids] 500 mg PO QID #40 tablet Home Medications: Home Meds Gabapentin [Neurontin] 600 mg PO BID 10/20/15 [History] Furosemide [Lasix] 20 mg PO DAILY 04/29/19 [History] polyethylene glycoL 3350 [MiraLAX] 17 gm PO DAILY PRN 04/29/19 [History] Insulin Aspart [NovoLOG] 13 unit SUBCUT TID 08/31/20 [History] Calcium Carbonate [Tums] 1 tab PO Q4HR PRN 03/21/21 [History] Insulin Degludec [Tresiba] 20 unit SQ BEDTIME 03/21/21 [History] Phenyleph/Mineral Oil/Petrolat [Preparation H Ointment] 1 appful RECTAL BID PRN 03/21/21 [History] Pantoprazole Sodium [Protonix] 40 mg PO DAILY #30 tablet. 03/25/21 [Rx] Acetaminophen [Tylenol] 650 mg PO BEDTIME 09/14/21 [History] Clopidogrel [Plavix] 75 mg PO DAILY 09/14/21 [History] bisacodyL [Bisacodyl] 10 mg PO DAILY PRN 09/14/21 [History] Pen Needle,Dual Safety,Diabetc [Autoshield Duo Pen Needle] 1 ea SQ TID 09/15/21 [History] Spironolactone 50 mg PO DAILY 09/15/21 [History] Metoprolol Succinate 50 mg PO DAILY #30 tab.er.24h 09/20/21 [Rx] Penicillin V Potassium [Veetids] 500 mg PO QID #40 tablet 09/20/21 [Rx] Oxygen Therapy Mode: Room Air Patient Handouts: Heart Failure Action Plan, Sepsis, Self Care, Adult Forms: ED Department Discharge Referrals: Dudley Winchester MD [Primary Care Provider] - 09/29/21 11:30 am (Please arrive at 11:15 for check in.) - Discharge Summary/Plan Comment DC Time >30 min.: No Total # of Minutes for Discharge Time: 25 - General Info Date of Service: 09/20/21 Admission Dx/Problem (Free Text: Admission Diagnosis/Problem Admission Diagnosis/Problem Sepsis Functional Status: Reports: Pain Controlled, Tolerating Diet, Ambulating, Urinating - Review of Systems General: Reports: No Symptoms HEENT: Reports: No Symptoms Pulmonary: Reports: No Symptoms Cardiovascular: Reports: No Symptoms Gastrointestinal: Reports: No Symptoms Genitourinary: Reports: No Symptoms Musculoskeletal: Reports: No Symptoms Skin: Reports: No Symptoms Neurological: Reports: No Symptoms Psychiatric: Reports: No Symptoms - Patient Data Vitals - Most Recent: Last Vital Signs Temp 98.8 F 09/20/21 07:53 Pulse 65 09/20/21 08:57 Resp 17 09/20/21 07:53 BP 139/59 L 09/20/21 08:57 Pulse Ox 93 L 09/20/21 07:54 Weight - Most Recent: 70.534 kg I&O - Last 24 hours: Intake & Output 09/19/21 09/20/21 09/20/21 22:59 06:59 14:59 Intake Total 775 375 Output Total 525 500 Balance 250 -125 Lab Results - Last 24 hrs: Laboratory Results - last 24 hr 09/19/21 09/19/21 09/19/21 Range/Units 11:52 16:59 20:40 POC Glucose 239 H 298 H 240 H (70-99) mg/dL SARS-CoV-2 RNA (HAYDE) (NEGATIVE) 09/20/21 09/20/21 Range/Units 05:44 07:48 POC Glucose 96 (70-99) mg/dL SARS-CoV-2 RNA (HAYDE) Negative (NEGATIVE) SONYA Results - Last 24 hrs: Microbiology 09/17/21 11:15 Blood Culture - Preliminary Blood - Venous - Lab Draw 09/17/21 11:00 Blood Culture - Preliminary Blood - Venous Med Orders - Current: Current Medications Acetaminophen (Acetaminophen 650 Mg Supp) 650 mg RECTAL Q6H PRN PRN Reason: Pain (mild 1-3) Acetaminophen (Acetaminophen 325 Mg Tab) 650 mg PO Q4H PRN PRN Reason: Pain Last Admin: 09/16/21 21:58 Dose: 650 mg Documented by: Albuterol/Ipratropium (Albuterol/Ipratropium 3.0-0.5 Mg/3 Ml Neb Soln) 3 ml NEB Q4H PRN PRN Reason: Shortness Of Breath/wheezing Bisacodyl (Bisacodyl 5 Mg Tab) 10 mg PO DAILY PRN PRN Reason: Constipation Last Admin: 09/14/21 20:26 Dose: 5 mg Documented by: Calcium Carbonate/Glycine (Calcium Carbonate 500 Mg Tab.Chew) 250 mg PO Q4H PRN PRN Reason: Heartburn Clopidogrel Bisulfate (Clopidogrel 75 Mg Tab) 75 mg PO DAILY [facility] Last Admin: 09/20/21 08:57 Dose: 75 mg Documented by: Furosemide (Furosemide 20 Mg Tab) 20 mg PO DAILY [facility] Last Admin: 09/20/21 08:58 Dose: 20 mg Documented by: Gabapentin (Gabapentin 300 Mg Cap) 300 mg PO BEDTIME [facility] Last Admin: 09/19/21 20:43 Dose: 300 mg Documented by: Heparin Sodium (Porcine) (Heparin Sodium 5,000 Units/Ml Vial) 5,000 units SUBCUT Q8H [facility] Last Admin: 09/20/21 04:38 Dose: 5,000 units Documented by: Promethazine HCl 6.25 mg/ (Sodium Chloride) 50.25 mls @ 100 mls/hr IV Q6H PRN PRN Reason: Nausea/Vomiting Insulin Glargine (Insulin Glargine,Hum.Rec.Anlog 100 Unit/Ml 3 Ml Pen) 25 unit SUBCUT BEDTIME [facility] Last Admin: 09/19/21 21:01 Dose: 25 unit Documented by: Insulin Human Lispro (Insulin Lispro 100 Unit/Ml 3 Ml Kwikpen) 0 unit SUBCUT QIDACANDBED [facility]; Protocol Last Admin: 09/20/21 08:58 Dose: Not Given Documented by: Metoprolol Succinate (Metoprolol Succinate 50 Mg Tab.Er) 50 mg PO DAILY [facility] Last Admin: 09/20/21 08:57 Dose: 50 mg Documented by: Oxycodone HCl (Oxycodone 5 Mg Tab) 5 mg PO Q6H PRN PRN Reason: Pain (moderate 4-6) Pantoprazole Sodium (Pantoprazole 40 Mg Tab.Cr) 40 mg PO ACBREAKFAST [facility] Last Admin: 09/20/21 06:59 Dose: 40 mg Documented by: Penicillin V Potassium (Penicillin V Potassium 500 Mg Tab) 500 mg PO Q6H [facility] Last Admin: 09/20/21 06:59 Dose: 500 mg Documented by: Polyethylene Glycol (Polyethylene Glycol 3350 Powder 17 Gm Packet) 17 gm PO DAILY PRN PRN Reason: Constipation Sodium Chloride (Sodium Chloride 0.9% 10 Ml Syringe) 10 ml FLUSH ASDIRECTED PRN PRN Reason: Keep Vein Open Last Admin: 09/14/21 16:50 Dose: 10 ml Documented by: Spironolactone (Spironolactone 25 Mg Tab) 50 mg PO DAILY@1200 [facility] Last Admin: 09/19/21 12:48 Dose: 50 mg Documented by: Discontinued Medications Acetaminophen (Acetaminophen 325 Mg Tab) 975 mg PO NOW ONE Stop: 09/14/21 16:13 Last Admin: 09/14/21 16:50 Dose: 975 mg Documented by: Furosemide (Furosemide 40 Mg Tab) 20 mg PO DAILY [facility] Last Admin: 09/19/21 09:37 Dose: 20 mg Documented by: Gabapentin (Gabapentin 300 Mg Cap) 600 mg PO ONETIME ONE Stop: 09/14/21 19:46 Last Admin: 09/14/21 20:22 Dose: 600 mg Documented by: Sodium Chloride (Normal Saline) 1,000 mls @ 125 mls/hr IV ASDIRECTED [facility] Last Admin: 09/14/21 16:49 Dose: 125 mls/hr Documented by: Ceftriaxone Sodium 2 gm/ (Sodium Chloride) 100 mls @ 200 mls/hr IV ONETIME ONE Stop: 09/14/21 16:42 Last Admin: 09/14/21 16:50 Dose: 200 mls/hr Documented by: Lactated Ringer's (Ringers, Lactated) 1,000 mls @ 100 mls/hr IV ASDIRECTED [facility] Lactated Ringer's (Ringers, Lactated) 1,000 mls @ 50 mls/hr IV ASDIRECTED [facility] Last Admin: 09/14/21 20:47 Dose: 50 mls/hr Documented by: Ceftriaxone Sodium 1 gm/ (Sodium Chloride) 100 mls @ 200 mls/hr IV Q24H [facility] Ceftriaxone Sodium 1 gm/ (Sodium Chloride) 100 mls @ 200 mls/hr IV Q12H [facility] Last Admin: 09/16/21 21:39 Dose: Not Given Documented by: Oxacillin Sodium 2 gm/ Sodium (Chloride) 100 mls @ 100 mls/hr IV Q4H [facility] Last Admin: 09/18/21 11:20 Dose: Not Given Documented by: Insulin Glargine (Insulin Glargine,Hum.Rec.Anlog 100 Unit/Ml 3 Ml Pen) 10 unit SUBCUT DAILY [facility] Last Admin: 09/15/21 10:28 Dose: Not Given Documented by: Insulin Glargine (Insulin Glargine,Hum.Rec.Anlog 100 Unit/Ml 3 Ml Pen) 10 unit SUBCUT BEDTIME [facility] Last Admin: 09/17/21 21:07 Dose: 10 units Documented by: Morphine Sulfate (Morphine 2 Mg/Ml Syringe) 1 mg IVPUSH Q4H PRN PRN Reason: Pain (severe 7-10) Stop: 09/15/21 19:06 Potassium Chloride (Potassium Chloride 20 Meq Tab.Er) 40 meq PO ONETIME ONE Stop: 09/19/21 09:24 Last Admin: 09/19/21 09:37 Dose: 40 meq Documented by: Spironolactone (Spironolactone 25 Mg Tab) 50 mg PO DAILY [facility] Last Admin: 09/18/21 16:09 Dose: Not Given Documented by: - Exam Quality Assessment: Reports: DVT Prophylaxis (heparin) General: Reports: Alert, Oriented, Cooperative, No Acute Distress HEENT: Reports: Pupils Equal, Mucous Membr. Moist/[place] Neck: Reports: Supple, Trachea Midline Lungs: Reports: Clear to Auscultation, Normal Respiratory Effort Cardiovascular: Reports: Regular Rate, Regular Rhythm GI/Abdominal Exam: Normal Bowel Sounds, Soft, Non-Tender, No Distention (Female) Exam: Deferred Rectal (Female) Exam: Deferred Back Exam: Reports: Normal Inspection Extremities: Normal Range of Motion, Non-Tender, No Pedal Edema, Normal Capillary Refill Skin: Reports: Warm, Dry, Intact Wound/Incisions: Reports: Healing Well, Dressing Dry and Intact Neurological: Reports: No New Focal Deficit Psy/Mental Status: Reports: Alert, Normal Affect, Normal Mood <Bebeto Barriga - Last Filed: 09/20/21 14:31> Discharge Summary - Referral to [facility] Primary Care Physician: Dudley Winchester MD - Discharge Diagnosis/Problem(s) (1) Cellulitis of right leg SNOMED Code(s): 870246364 ICD Code: L03.115 - CELLULITIS OF RIGHT LOWER LIMB Status: Acute Priority: High (2) Sepsis SNOMED Code(s): 09187916 ICD Code: A41.9 - SEPSIS, UNSPECIFIED ORGANISM Status: Resolved Priority: High Qualifiers: Sepsis type: sepsis due to unspecified organism Sepsis acute organ dysfunction status: unspecified Qualified Code(s): A41.9 - Sepsis, unspecified organism (3) Hyperglycemia due to type 2 diabetes mellitus SNOMED Code(s): 764324938490466, 810400440952713 ICD Code: E11.65 - TYPE 2 DIABETES MELLITUS WITH HYPERGLYCEMIA Status: Chronic Priority: High Qualifiers: Diabetes mellitus tank terminal gauger insulin use: with custodial use Qualified Code(s): E11.65 - Type 2 diabetes mellitus with hyperglycemia; Z79.4 - terminal carman (current) use of insulin (4) CKD (chronic kidney disease) stage 4, GFR 15-29 ml/min SNOMED Code(s): 763123465 ICD Code: N18.4 - CHRONIC KIDNEY DISEASE, STAGE 4 (SEVERE) Status: Chronic Priority: Medium - Patient Summary/Data Consults: Consultations 09/14/21 19:03 OT Evaluation and Treatment [CONS] Routine PT Evaluation and Treatment [CONS] Routine 09/14/21 19:43 Consult to Speech Language Pathology [LAUNDRY MACHINE OPERATOR Evaluation and Treatment] [CONS] Routine - Patient Data Vitals - Most Recent: Last Vital Signs Temp 36.8 C 09/20/21 11:48 Pulse 64 09/20/21 11:48 Resp 18 09/20/21 11:48 BP 139/78 09/20/21 11:48 Pulse Ox 93 L 09/20/21 11:48 I&O - Last 24 hours: Intake & Output 09/19/21 09/20/21 09/20/21 22:59 06:59 14:59 Intake Total 775 375 480 Output Total 525 500 Balance 250 -125 480 Lab Results - Last 24 hrs: Laboratory Results - last 24 hr 09/19/21 09/19/21 09/20/21 Range/Units 16:59 20:40 05:44 POC Glucose 298 H 240 H 96 (70-99) mg/dL SARS-CoV-2 RNA (HAYDE) (NEGATIVE) 09/20/21 09/20/21 Range/Units 07:48 11:21 POC Glucose 245 H (70-99) mg/dL SARS-CoV-2 RNA (HAYDE) Negative (NEGATIVE) SONYA Results - Last 24 hrs: Microbiology 09/14/21 16:25 Blood Culture - Final Blood - Venous - Lab Draw 09/17/21 11:15 Blood Culture - Preliminary Blood - Venous - Lab Draw 09/17/21 11:00 Blood Culture - Preliminary Blood - Venous Med Orders - Current: Current Medications Acetaminophen (Acetaminophen 650 Mg Supp) 650 mg RECTAL Q6H PRN PRN Reason: Pain (mild 1-3) Acetaminophen (Acetaminophen 325 Mg Tab) 650 mg PO Q4H PRN PRN Reason: Pain Last Admin: 09/16/21 21:58 Dose: 650 mg Documented by: Albuterol/Ipratropium (Albuterol/Ipratropium 3.0-0.5 Mg/3 Ml Neb Soln) 3 ml NEB Q4H PRN PRN Reason: Shortness Of Breath/wheezing Bisacodyl (Bisacodyl 5 Mg Tab) 10 mg PO DAILY PRN PRN Reason: Constipation Last Admin: 09/14/21 20:26 Dose: 5 mg Documented by: Calcium Carbonate/Glycine (Calcium Carbonate 500 Mg Tab.Chew) 250 mg PO Q4H PRN PRN Reason: Heartburn Clopidogrel Bisulfate (Clopidogrel 75 Mg Tab) 75 mg PO DAILY [facility] Last Admin: 09/20/21 08:57 Dose: 75 mg Documented by: Furosemide (Furosemide 20 Mg Tab) 20 mg PO DAILY [facility] Last Admin: 09/20/21 08:58 Dose: 20 mg Documented by: Gabapentin (Gabapentin 300 Mg Cap) 300 mg PO BEDTIME [facility] Last Admin: 09/19/21 20:43 Dose: 300 mg Documented by: Heparin Sodium (Porcine) (Heparin Sodium 5,000 Units/Ml Vial) 5,000 units SUBCUT Q8H [facility] Last Admin: 09/20/21 04:38 Dose: 5,000 units Documented by: Promethazine HCl 6.25 mg/ (Sodium Chloride) 50.25 mls @ 100 mls/hr IV Q6H PRN PRN Reason: Nausea/Vomiting Insulin Glargine (Insulin Glargine,Hum.Rec.Anlog 100 Unit/Ml 3 Ml Pen) 25 unit SUBCUT BEDTIME [facility] Last Admin: 09/19/21 21:01 Dose: 25 unit Documented by: Insulin Human Lispro (Insulin Lispro 100 Unit/Ml 3 Ml Kwikpen) 0 unit SUBCUT QIDACANDBED [facility]; Protocol Last Admin: 09/20/21 11:51 Dose: 4 units Documented by: Metoprolol Succinate (Metoprolol Succinate 50 Mg Tab.Er) 50 mg PO DAILY [facility] Last Admin: 09/20/21 08:57 Dose: 50 mg Documented by: Oxycodone HCl (Oxycodone 5 Mg Tab) 5 mg PO Q6H PRN PRN Reason: Pain (moderate 4-6) Pantoprazole Sodium (Pantoprazole 40 Mg Tab.Cr) 40 mg PO ACBREAKFAST [facility] Last Admin: 09/20/21 06:59 Dose: 40 mg Documented by: Penicillin V Potassium (Penicillin V Potassium 500 Mg Tab) 500 mg PO Q6H [facility] Last Admin: 09/20/21 11:45 Dose: 500 mg Documented by: Polyethylene Glycol (Polyethylene Glycol 3350 Powder 17 Gm Packet) 17 gm PO DAILY PRN PRN Reason: Constipation Sodium Chloride (Sodium Chloride 0.9% 10 Ml Syringe) 10 ml FLUSH ASDIRECTED PRN PRN Reason: Keep Vein Open Last Admin: 09/14/21 16:50 Dose: 10 ml Documented by: Spironolactone (Spironolactone 25 Mg Tab) 50 mg PO DAILY@1200 [facility] Last Admin: 09/20/21 11:48 Dose: 50 mg Documented by: Discontinued Medications Acetaminophen (Acetaminophen 325 Mg Tab) 975 mg PO NOW ONE Stop: 09/14/21 16:13 Last Admin: 09/14/21 16:50 Dose: 975 mg Documented by: Furosemide (Furosemide 40 Mg Tab) 20 mg PO DAILY [facility] Last Admin: 09/19/21 09:37 Dose: 20 mg Documented by: Gabapentin (Gabapentin 300 Mg Cap) 600 mg PO ONETIME ONE Stop: 09/14/21 19:46 Last Admin: 09/14/21 20:22 Dose: 600 mg Documented by: Sodium Chloride (Normal Saline) 1,000 mls @ 125 mls/hr IV ASDIRECTED [facility] Last Admin: 09/14/21 16:49 Dose: 125 mls/hr Documented by: Ceftriaxone Sodium 2 gm/ (Sodium Chloride) 100 mls @ 200 mls/hr IV ONETIME ONE Stop: 09/14/21 16:42 Last Admin: 09/14/21 16:50 Dose: 200 mls/hr Documented by: Lactated Ringer's (Ringers, Lactated) 1,000 mls @ 100 mls/hr IV ASDIRECTED [facility] Lactated Ringer's (Ringers, Lactated) 1,000 mls @ 50 mls/hr IV ASDIRECTED [facility] Last Admin: 09/14/21 20:47 Dose: 50 mls/hr Documented by: Ceftriaxone Sodium 1 gm/ (Sodium Chloride) 100 mls @ 200 mls/hr IV Q24H [facility] Ceftriaxone Sodium 1 gm/ (Sodium Chloride) 100 mls @ 200 mls/hr IV Q12H [facility] Last Admin: 09/16/21 21:39 Dose: Not Given Documented by: Oxacillin Sodium 2 gm/ Sodium (Chloride) 100 mls @ 100 mls/hr IV Q4H [facility] Last Admin: 09/18/21 11:20 Dose: Not Given Documented by: Insulin Glargine (Insulin Glargine,Hum.Rec.Anlog 100 Unit/Ml 3 Ml Pen) 10 unit SUBCUT DAILY [facility] Last Admin: 09/15/21 10:28 Dose: Not Given Documented by: Insulin Glargine (Insulin Glargine,Hum.Rec.Anlog 100 Unit/Ml 3 Ml Pen) 10 unit SUBCUT BEDTIME [facility] Last Admin: 09/17/21 21:07 Dose: 10 units Documented by: Morphine Sulfate (Morphine 2 Mg/Ml Syringe) 1 mg IVPUSH Q4H PRN PRN Reason: Pain (severe 7-10) Stop: 09/15/21 19:06 Potassium Chloride (Potassium Chloride 20 Meq Tab.Er) 40 meq PO ONETIME ONE Stop: 09/19/21 09:24 Last Admin: 09/19/21 09:37 Dose: 40 meq Documented by: Spironolactone (Spironolactone 25 Mg Tab) 50 mg PO DAILY [facility] Last Admin: 09/18/21 16:09 Dose: Not Given Documented by: - Free Text/Narrative Note: I have seen and examined the patient independently of HANNAH Rodriguez, and I have discussed the case with her. I have reviewed and agree with the plan of care as outlined by her. Please see orders.
[2021-09-20] MEDS: Spironolactone 25 MG Tab PO SCH (11:48)
[2021-09-20 13:44] VITALS: BP 139/78; PULSE 64
== END 2021-09-20 13:10 | DRG 871 ==
LOC: JD.ED 15:46 → JD.MS 18:11
PROVIDERS: ADMIT Internal Medicine; ATTEND Internal Medicine
DX: A41.9 Sepsis, unspecified organism (principal); A41.1 Sepsis due to other specified staphylococcus; R09.02 Hypoxemia; J96.01 Acute respiratory failure with hypoxia; N17.2 Acute kidney failure with medullary necrosis; L03.115 Cellulitis of right lower limb; N18.4 Chronic kidney disease, stage 4 (severe); I13.0 Hypertensive heart and chronic kidney disease with heart failure and stage 1 through stage 4 chronic kidney disease, or unspecified chronic kidney disease; N18.9 Chronic kidney disease, unspecified; E11.22 Type 2 diabetes mellitus with diabetic chronic kidney disease; E11.65 Type 2 diabetes mellitus with hyperglycemia; I50.9 Heart failure, unspecified; Z20.822 Contact with and (suspected) exposure to COVID-19; I48.91 Unspecified atrial fibrillation; Z66 Do not resuscitate; I08.1 Rheumatic disorders of both mitral and tricuspid valves; K59.09 Other constipation; M54.9 Dorsalgia, unspecified; F32.9 Major depressive disorder, single episode, unspecified; D64.9 Anemia, unspecified; G89.29 Other chronic pain; D63.1 Anemia in chronic kidney disease; R33.9 Retention of urine, unspecified; K21.9 Gastro-esophageal reflux disease without esophagitis; E86.0 Dehydration; H54.7 Unspecified visual loss; R13.10 Dysphagia, unspecified; I49.9 Cardiac arrhythmia, unspecified; F01.50 Vascular dementia, unspecified severity, without behavioral disturbance, psychotic disturbance, mood disturbance, and anxiety; M79.2 Neuralgia and neuritis, unspecified; Z79.4 Long term (current) use of insulin; Z88.1 Allergy status to other antibiotic agents; Z79.899 Other long term (current) drug therapy; Z86.73 Personal history of transient ischemic attack (TIA), and cerebral infarction without residual deficits; Z85.828 Personal history of other malignant neoplasm of skin; Z90.49 Acquired absence of other specified parts of digestive tract; Z79.02 Long term (current) use of antithrombotics/antiplatelets
CPT/HCPCS: 36415; 71045; 80053; 81001; 83605; 85025; 85610; 85730; 86140; 87040 ×2; 87077; 87150; 87186; 87804 ×2; 96365; 99285; A9270; J0696; J7030; U0002; 82947; 83735; 83880; 84145; 87641; 93306; 93971-26-RT; 93971-RT; 94761; 94762; 97110-GP; 97162-GP; 97530-GP; J1644; J1815; J2700; J7120